=== PATIENT | female | born 1955 | race Caucasian/White ===

== ENCOUNTER 2020-05-21 14:36 | Inpatient (IN) | payer MEDICARE, SELFPAY ==
[2020-05-21] VITALS (7 sets, daily range): BP systolic 83–154; BP diastolic 51–74; PULSE 108–123; RESP 14–22; TEMP 37.1–37.3; O2SAT 96–98; BMI 25.8
--- NOTE | 2020-05-21 14:41 | XRR_ITS ---
PROCEDURE INFORMATION: Exam: XR Chest, 1 View Exam date and time: 05/21/2020 3:00 PM Age: 65 years old Clinical indication: Cough TECHNIQUE: Imaging protocol: XR of the chest Views: 1 view. COMPARISON: No relevant prior studies available. FINDINGS: Lungs: Unremarkable. No consolidation. Pleural space: Unremarkable. No pleural effusion. No pneumothorax. Heart/Mediastinum: Unremarkable. No cardiomegaly. Bones/joints: Unremarkable. XR/XR chest 1V portable [id number] IMPRESSION: No acute findings.
--- NOTE | 2020-05-21 14:48 | ECG_ITS ---
[facility] Test Date: 2020-05-21 Pat Name: Ambika Nichols Department: Room: Gender: Female [employer] Agent: : [id number] Requested By: Victorina Jones Order Number: [id number] Dale MD: Brigida Carvajal M.D. Measurements Intervals [place] Rate: 108 P: -1 FL: 161 QRS: 5 QRSD: 81 T: 18 QT: 315 QTc: 423 Interpretive Statements SINUS TACHYCARDIA ABNORMAL RHYTHM ECG No previous ECG available for comparison Electronically Signed On 05-23-2020 8:02:33 CDT by Brigida Carvajal M.D. [email or web address]
--- NOTE | 2020-05-21 15:13 | ED_ITS ---
Documented by User: Victorina Herman 05/21/20 18:12 HPI - General Adult General: Chief complaint: General Medical Stated complaint: lethargic, nausea, vomiting, head congestion Time Seen by Provider: 05/21/20 14:37 Source: patient Mode of arrival: ambulatory Limitations: no limitations History of Present Illness: HPI narrative: Ambika is a nice 65-year-old female who comes in complaining of upper respiratory symptoms along with nausea and vomiting. Patient states 2 days ago she started with head congestion and sinus drainage. She had a low-grade fever at home but never did take her temperature. This was a subjective fever. Denies any abdominal pain or diarrhea. Denies any urinary symptoms. She denies any neck pain or stiffness. She does have a sore throat and a dry cough. She is unaware of anything that makes her symptoms better or worse. Her greatest symptom today is that of just profound fatigue and weakness. She believes she is dehydrated because she is not keeping anything down. Associated symptoms: Reports malaise, nausea and vomiting; Deny chest pain, confusion, diaphoresis, headache(s), rash, palpitations or syncope Review of Systems Const: Reports: fever(s), chills, body aches, change in appetite, fatigue and malaise; Denies: diaphoresis Eyes: Denies: change in vision, blurry vision, photophobia, eye discomfort, eye discharge or eye redness ENMT: Denies: throat pain, odynophagia, hoarseness, swelling of lips/tongue, ear or mastoid pain, ear discharge, change in hearing or nasal discharge Card: Denies: chest pain, palpitations, irregular heart rhythm, edema, lightheadedness, syncope, pre-syncope, dyspnea on exertion or orthopnea Resp: Denies: productive cough, wheezing, hemoptysis or chest congestion GI: Reports: abdominal pain, nausea and vomiting; Denies: hematemesis, coffee ground emesis, heartburn, diarrhea, constipation, GI cramping, hematochezia or melena : Denies: flank pain, dysuria, urinary frequency, urinary urgency or hematuria Musc: Denies: neck pain, back pain, extremity pain, extremity swelling, joint pain, joint swelling, joint redness, joint warmth or joint stiffness Skin/Breast: Denies: rash, pruritus, erythema or skin tenderness Neuro: Denies: headache(s), numbness in extremities, weakness in extremities, sensory changes, lack of coordination, difficulty walking, dizziness, vertigo, confusion, Slurred speech present or seizure-like activity Jayjay/Lymph: Denies: easy bruising, easy bleeding, petechiae, purpura or enlarged lymph nodes All/Imm: Denies: urticaria, throat swelling, tongue swelling, facial swelling or acute wheezing PFSH ED PFSH: Medical History (Updated 05/21/20 @ 20:36 by Luis Thayer MD) DJD (degenerative joint disease) DM type 2 (diabetes mellitus, type 2) Hyperlipidemia Hypertension Hypothyroidism Menopausal symptoms Relates she takes antidepressant for this Pituitary tumor Surgical History (Updated 05/21/20 @ 20:26 by Luis Thayer MD) H/O pituitary neoplasm Status post resection History of History of hysterectomy Family History (Updated 05/21/20 @ 20:26 by Luis Thayer MD) Other CAD (coronary artery disease) Social History (Updated 05/21/20 @ 20:26 by Luis Thayer MD) Smoking and tobacco status: never smoked Alcohol intake: never Substance/Drug Use: never Physical Exam Const: COMMON NORMALS: no acute distress, patient oriented x3, no limitations, healthy appearing and well nourished GENERAL APPEARANCE: cooperative, well kempt and well developed HENMT: COMMON NORMALS: normocephalic, atraumatic, external ears normal, EAC's normal and Normal external nose present HEAD & SCALP: normal to inspection, normocephalic and atraumatic FACE & SINUS: normal facial exam and face symmetric NOSE: Normal external nose present and Normal nares present EXTERNAL EAR: Yes external ears normal EXTERNAL AUDITORY CANAL: EAC's normal MOUTH: Normal oral and palatal mucosa present, lip normal and tongue normal Eye: COMMON NORMALS: Equal, round and reactive pupils present and conjunctivae normal GENERAL EYE: appearance normal, both eyes and all related structures ALIGNMENT: Yes alignment normal PERIORBITAL: periorbital findings normal EYELID: eyelids normal CONJUNCTIVA: Yes conjunctivae normal SCLERA: sclerae normal PUPIL: Yes Equal, round and reactive pupils present Neck/C-Spine: COMMON NORMALS: full ROM, no lymphadenopathy, supple, no meningeal signs and no JVD GENERAL: Yes normal visual inspection and Yes trachea midline Chest: COMMONS NORMALS: normal inspection of the chest and normal palpation of entire chest wall Resp: COMMON NORMALS: normal respiratory effort, No retractions, No use of accessory muscles and clear to auscultation bilaterally EFFORT & INSPECTION: Yes able to speak in complete sentences and Yes symmetric chest movement AUSCULTATION: clear to auscultation bilaterally, no crackles, no rales, no rhonchi and no wheezes Cardio: COMMON NORMALS: no JVD, regular rate, regular rhythm, S1 normal heart sound present and S2 normal heart sound present RATE: regular rate RHYTHM: regular rhythm HEART SOUNDS: S1 normal heart sound present, S2 normal heart sound present, no click, no gallops, no murmurs, no rubs and abnormal split S2 GI: COMMON NORMALS: Soft to palpation and No hepatosplenomegaly present PALPATION: Yes Soft to palpation, No Tenderness to palpation present (GI), No Guarding due to palpation present (GI), No Rigid due to palpation, Yes No hepatosplenomegaly present, No Hernia present, No Palpable mass present and No Pulsatile mass present : COMMON NORMALS: Yes no CVA tenderness BLADDER/KIDNEY EXAM: Yes no CVA tenderness EXTERNAL FEMALE EXAM: No Hernia present Back/Pelvis: COMMON NORMALS: no CVA tenderness, thoracic and lumbar spine normal to inspection, no thoracic nor lumbar tenderness and thoraco-lumbar ROM normal Extremity: COMMON NORMALS: normal to inspection, full ROM, capillary refill normal, no joint enlargement, no clubbing, cyanosis or edema and no calf tenderness Neuro: COMMON NORMALS: patient oriented x3, CN's II-XII intact bilaterally, moves all extremities, no focal motor deficits and no sensory deficits noted MENINGEAL SIGNS: Yes no meningeal signs SPEECH: speech normal Psych: COMMON NORMALS: mental status grossly normal, Normal thought process present, cooperative, normal affect, speech normal and activity/motor behavior normal APPEARANCE: Yes well kempt SPEECH: Yes normal speech THOUGHT PROCESS: Normal thought process present Skin: COMMON NORMALS: no rashes or lesions noted, turgor normal, no jaundice, no petechiae and no mottling GENERAL SKIN EXAM: no rashes or lesions noted and turgor normal Course ED course: 1703 -patient profoundly orthostatic with a blood pressure going from 140 systolic to 83 systolic from laying down to a seated position. Vital Signs: Vital signs: Vital Signs Temperature 98.8 F 09/05/20 23:21 Pulse Rate 109 H 05/21/20 23:21 Respiratory Rate 14 05/21/20 23:21 Blood Pressure 154/73 05/21/20 23:21 Pulse Oximetry 96 05/21/20 23:21 [facility] - General Adult Lab Data: Labs: Lab Results 05/21/20 05/21/20 05/21/20 Range/Units 15:45 15:45 15:45 WBC 15.0 H (4.0-10.0) 10^3/ uL RBC 4.12 (4.1-5.3) 10^6/u L Hgb 11.0 L (11.5-15.3) g/dL Hct 35.1 L (37.0-47.0) % MCV 85.2 (81-99) fL MCH 26.7 L (28.0-34.0) pg MCHC 31.3 (30.0-36.0) g/dL RDW 13.7 (12.1-15.1) % Plt Count 162 (130-400) 10^3/c mm MPV 9.7 (7.4-10.4) fL Neut % (Auto) 87.3 % Lymph % (Auto) 4.3 % [place] % (Auto) 7.0 % Eos % (Auto) 0.2 % Baso % (Auto) 0.3 % Neut # (Auto) 13.06 H (1.8-7.7) 10^3/u L Lymph # (Auto) 0.7 L (0.8-4.8) 10^3/u L [place] # (Auto) 1.1 H (0.2-0.9) 10^3/u L Eos # (Auto) 0.0 (0.0-0.8) 10^3/u L Baso # (Auto) 0.1 (0.0-0.1) 10^3/u L Nucleated RBC % (a uto) 0 % Nucleated RBCs # 0.0 /100WBC PT 14.70 (12.1-14.9) SECO NDS INR 1.12 (0.8-1.2) Sodium 133 L (136-145) mmol/L Potassium 4.5 (3.5-5.1) mmol/L Chloride 96 L (98-107) mmol/L Carbon Dioxide 20 L (22-29) mmol/L Anion Gap 21.5 H (5-19) BUN 35 H (8-23) mg/dL Creatinine 1.4 H (0.5-0.9) mg/dL GFR Calculation 37.5 L (90-130) mL/min Glucose 374 H (65-115) mg/dL Calculated Osmolal ity 289 (285-295) mOsm/k g Lactic Acid (0.5-2.2) mmol/L Calcium 9.1 (8.5-10.5) mg/dL Magnesium 1.9 (1.7-2.3) mg/dL Total Bilirubin 0.5 (0.15-1.2) mg/dL AST 16 (0-32) U/L ALT 23 (0-33) U/L Alkaline Phosphata se 84 (35-105) IU/L Creatine Kinase 21 L (26-192) U/L Troponin T Baselin e (0-10) ng/L Troponin T 120 [place] (0-10) ng/L Delta Troponin T (0-10) ABS# Total Protein 7.3 (6.6-8.7) g/dL Albumin 3.8 (3.5-5.2) g/dL Globulin 3.5 (1.3-4.6) g/dL Lipase 8 L (13-60) U/L TSH 0.55 (0.27-4.20) uIU/ mL Urine Color (Yellow) Urine Appearance (CLEAR) Urine pH (5-7) Ur Specific Gravit y (1.005-1.030) Urine Protein (Negative) Urine Glucose (UA) (Normal) Urine Ketones (Negative) Urine Blood (Negative) Urine Nitrate (Negative) Urine Bilirubin (NEGATIVE) Urine Urobilinogen (Negative) mg/dL Ur Leukocyte [place] ase (Negative) Urine RBC (0-2) /hpf Urine WBC (0-5) /hpf Ur Squamous Epith Cells (0-5) Amorphous Sediment Urine Bacteria (NONE) Serum Ketones Negative (Negative) Influenza Type A A g (Negative) Influenza Type B A g (Negative) SARS-CoV-2 Ag (Rap id) (Negative) 05/21/20 05/21/20 05/21/20 Range/Units 15:45 15:45 15:45 WBC (4.0-10.0) 10^3/ uL RBC (4.1-5.3) 10^6/u L Hgb (11.5-15.3) g/dL Hct (37.0-47.0) % MCV (81-99) fL MCH (28.0-34.0) pg MCHC (30.0-36.0) g/dL RDW (12.1-15.1) % Plt Count (130-400) 10^3/c mm MPV (7.4-10.4) fL Neut % (Auto) % Lymph % (Auto) % [place] % (Auto) % Eos % (Auto) % Baso % (Auto) % Neut # (Auto) (1.8-7.7) 10^3/u L Lymph # (Auto) (0.8-4.8) 10^3/u L [place] # (Auto) (0.2-0.9) 10^3/u L Eos # (Auto) (0.0-0.8) 10^3/u L Baso # (Auto) (0.0-0.1) 10^3/u L Nucleated RBC % (a uto) % Nucleated RBCs # /100WBC PT (12.1-14.9) SECO NDS INR (0.8-1.2) Sodium (136-145) mmol/L Potassium (3.5-5.1) mmol/L Chloride (98-107) mmol/L Carbon Dioxide (22-29) mmol/L Anion Gap (5-19) BUN (8-23) mg/dL Creatinine (0.5-0.9) mg/dL GFR Calculation (90-130) mL/min Glucose (65-115) mg/dL Calculated Osmolal ity (285-295) mOsm/k g Lactic Acid 1.8 (0.5-2.2) mmol/L Calcium (8.5-10.5) mg/dL Magnesium (1.7-2.3) mg/dL Total Bilirubin (0.15-1.2) mg/dL AST (0-32) U/L ALT (0-33) U/L Alkaline Phosphata se (35-105) IU/L Creatine Kinase (26-192) U/L Troponin T Baselin e 27 H (0-10) ng/L Troponin T 120 [place] (0-10) ng/L Delta Troponin T (0-10) ABS# Total Protein (6.6-8.7) g/dL Albumin (3.5-5.2) g/dL Globulin (1.3-4.6) g/dL Lipase (13-60) U/L TSH (0.27-4.20) uIU/ mL Urine Color (Yellow) Urine Appearance (CLEAR) Urine pH (5-7) Ur Specific Gravit y (1.005-1.030) Urine Protein (Negative) Urine Glucose (UA) (Normal) Urine Ketones (Negative) Urine Blood (Negative) Urine Nitrate (Negative) Urine Bilirubin (NEGATIVE) Urine Urobilinogen (Negative) mg/dL Ur Leukocyte [place] ase (Negative) Urine RBC (0-2) /hpf Urine WBC (0-5) /hpf Ur Squamous Epith Cells (0-5) Amorphous Sediment Urine Bacteria (NONE) Serum Ketones (Negative) Influenza Type A A g (Negative) Influenza Type B A g (Negative) SARS-CoV-2 Ag (Rap id) Negative (Negative) 05/21/20 05/21/20 05/21/20 Range/Units 15:45 17:54 18:08 WBC (4.0-10.0) 10^3/ uL RBC (4.1-5.3) 10^6/u L Hgb (11.5-15.3) g/dL Hct (37.0-47.0) % MCV (81-99) fL MCH (28.0-34.0) pg MCHC (30.0-36.0) g/dL RDW (12.1-15.1) % Plt Count (130-400) 10^3/c mm MPV (7.4-10.4) fL Neut % (Auto) % Lymph % (Auto) % [place] % (Auto) % Eos % (Auto) % Baso % (Auto) % Neut # (Auto) (1.8-7.7) 10^3/u L Lymph # (Auto) (0.8-4.8) 10^3/u L [place] # (Auto) (0.2-0.9) 10^3/u L Eos # (Auto) (0.0-0.8) 10^3/u L Baso # (Auto) (0.0-0.1) 10^3/u L Nucleated RBC % (a uto) % Nucleated RBCs # /100WBC PT (12.1-14.9) SECO NDS INR (0.8-1.2) Sodium (136-145) mmol/L Potassium (3.5-5.1) mmol/L Chloride (98-107) mmol/L Carbon Dioxide (22-29) mmol/L Anion Gap (5-19) BUN (8-23) mg/dL Creatinine (0.5-0.9) mg/dL GFR Calculation (90-130) mL/min Glucose (65-115) mg/dL Calculated Osmolal ity (285-295) mOsm/k g Lactic Acid (0.5-2.2) mmol/L Calcium (8.5-10.5) mg/dL Magnesium (1.7-2.3) mg/dL Total Bilirubin (0.15-1.2) mg/dL AST (0-32) U/L ALT (0-33) U/L Alkaline Phosphata se (35-105) IU/L Creatine Kinase (26-192) U/L Troponin T Baselin e (0-10) ng/L Troponin T 120 [place] 23.61 H (0-10) ng/L Delta Troponin T -3.39 L (0-10) ABS# Total Protein (6.6-8.7) g/dL Albumin (3.5-5.2) g/dL Globulin (1.3-4.6) g/dL Lipase (13-60) U/L TSH (0.27-4.20) uIU/ mL Urine Color Yellow (Yellow) Urine Appearance Sl hazy (CLEAR) Urine pH 5 (5-7) Ur Specific Gravit y 1.015 (1.005-1.030) Urine Protein Trace (Negative) Urine Glucose (UA) 4+ H (Normal) Urine Ketones 1+ H (Negative) Urine Blood Neg (Negative) Urine Nitrate Negative (Negative) Urine Bilirubin Neg (NEGATIVE) Urine Urobilinogen Norm (Negative) mg/dL Ur Leukocyte [place] ase Negative (Negative) Urine RBC None (0-2) /hpf Urine WBC 15-25 H (0-5) /hpf Ur Squamous Epith Cells 5-10 H (0-5) Amorphous Sediment Not Reportable Urine Bacteria 1+ H (NONE) Serum Ketones (Negative) Influenza Type A A g Negative (Negative) Influenza Type B A g Negative (Negative) SARS-CoV-2 Ag (Rap id) (Negative) Imaging Data^: CXR: Attestation: I personally reviewed and interpreted this imaging study as follows: My impression: No acute cardiopulmonary findings. EKG Data^: EKG 1: Attestation: I personally reviewed and interpreted this EKG as follows: EKG interpretation date: 05/21/20 EKG interpretation time: 15:32 Interpretation: Normal sinus rhythm 108 beats a minute, normal axis, no blocks, normal intervals, no acute ST or T wave changes. Computer generated interpretation: Chest X-Ray 05/21/20 14:41 IMPRESSION: No acute findings. Abdomen/Pelvis CT 05/21/20 17:09 IMPRESSION: 1. There is a cystic lesion with some internal complexity and peripheral calcifications in the pancreatic body. Differential includes pancreatic pseudocyst, serous cystadenoma, mucinous cystic neoplasm, and intraductal papillary mucinous neoplasm. 2. There is mucosal thickening of the esophagus and gastroesophageal junction. Differential includes esophagitis/gastritis and neoplasm. 3. Colonic constipation is present. COMMENTS: Consistent with the [employer]'s Incidental Findings Committee white paper (J Am Sadie Radiol 2018): Any incidental renal lesion less than 1.0 cm or classified as too small to characterize, or any incidental cystic renal lesion characterized as simple-appearing, is likely benign. No follow-up imaging is recommended for these lesions per consensus recommendations based on imaging criteria. Radiation Dose CTDIVOL = (mGy): DLP = 975.46 (mGy-cm) Head CT 05/21/20 20:21 IMPRESSION: 1. There is heterogeneous density in the expected location of the pituitary gland extending to the suprasellar region measuring 14 mm x 12 mm. This may represent postoperative change and/or residual/ recurrent tumor. 2. There are senescent changes of the brain as described above. No evidence for large acute ischemic infarction or acute intracranial injury. 3. Acute paranasal sinusitis. Radiation Dose CTDIVOL = (mGy): DLP = 781.42 (mGy-cm) EKG 2: Attestation: I personally reviewed and interpreted this EKG as follows: EKG interpretation date: 05/21/20 EKG interpretation time: 17:06 Interpretation: Normal sinus rhythm 105 beats minute, normal axis, no blocks, normal intervals. No acute ST-T wave changes. Computer generated interpretation: Chest X-Ray 05/21/20 14:41 IMPRESSION: No acute findings. Abdomen/Pelvis CT 05/21/20 17:09 IMPRESSION: 1. There is a cystic lesion with some internal complexity and peripheral calcifications in the pancreatic body. Differential includes pancreatic pseudocyst, serous cystadenoma, mucinous cystic neoplasm, and intraductal papillary mucinous neoplasm. 2. There is mucosal thickening of the esophagus and gastroesophageal junction. Differential includes esophagitis/gastritis and neoplasm. 3. Colonic constipation is present. COMMENTS: Consistent with the [employer]'s Incidental Findings Committee white paper (J Am Sadie Radiol 2018): Any incidental renal lesion less than 1.0 cm or classified as too small to characterize, or any incidental cystic renal lesion characterized as simple-appearing, is likely benign. No follow-up imaging is recommended for these lesions per consensus recommendations based on imaging criteria. Radiation Dose CTDIVOL = (mGy): DLP = 975.46 (mGy-cm) Head CT 05/21/20 20:21 IMPRESSION: 1. There is heterogeneous density in the expected location of the pituitary gland extending to the suprasellar region measuring 14 mm x 12 mm. This may represent postoperative change and/or residual/ recurrent tumor. 2. There are senescent changes of the brain as described above. No evidence for large acute ischemic infarction or acute intracranial injury. 3. Acute paranasal sinusitis. Radiation Dose CTDIVOL = (mGy): DLP = 781.42 (mGy-cm) Discharge Plan Discharge Patient Disposition: Placed in Observation Admit Provider: Luis Thayer Clinical Impression: Vomiting, Orthostatic hypotension, Esophagitis Condition: Stable Discharge Date/Time: 05/21/20 22:13 Coding Level of Care Code ED Lead Technical Writer for Chg Fwd Exam Comprehensive Documented by User: Chang Oneill, 05/22/20 04:08 HPI - General Adult General: Chief complaint: General Medical Stated complaint: lethargic, nausea, vomiting, head congestion Time Seen by Provider: 05/21/20 14:37 PFSH ED PFSH: Medical History (Updated 05/21/20 @ 20:36 by Luis Thayer MD) DJD (degenerative joint disease) DM type 2 (diabetes mellitus, type 2) Hyperlipidemia Hypertension Hypothyroidism Menopausal symptoms Relates she takes antidepressant for this Pituitary tumor Surgical History (Updated 05/21/20 @ 20:26 by Luis Thayer MD) H/O pituitary neoplasm Status post resection History of History of hysterectomy Family History (Updated 05/21/20 @ 20:26 by Luis Thayer MD) Other CAD (coronary artery disease) Social History (Updated 05/21/20 @ 20:26 by Luis Thayer MD) Smoking and tobacco status: never smoked Alcohol intake: never Substance/Drug Use: never Course Consultations: Consultation #1: [place] Vital Signs: Vital signs: Vital Signs Temperature 98.8 F 05/21/20 23:21 Pulse Rate 109 H 05/21/20 23:21 Respiratory Rate 14 05/21/20 23:21 Blood Pressure 154/73 05/21/20 23:21 Pulse Oximetry 96 05/21/20 23:21 MDM - General Adult MDM Narrative: Medical decision making narrative: 65-year-old lady with a history of vomiting at home. She is not been able to hold down liquid, she has been complaining of heartburn . She was checked out to me by Dr. Mantilla at shift change. That was pending a CT result, which shows mucosal thickening of her distal esophagus, along with an abnormality in her pancreas that could be inflammatory versus malignancy. Her white blood cell count is 15, hemoglobin 11, bicarbonate level was 20. She has had 2 L of fluid, and is still orthostatic with lying to sitting, although she is less symptomatic. Her heart rate remains above 100, in the 110s. Her blood pressure is mildly improved should be observed for continued fluid support, repeat laboratory, etc. Hospitalist agrees. Lab Data: Labs: Lab Results 05/21/20 05/21/20 05/21/20 Range/Units 15:45 15:45 15:45 WBC 15.0 H (4.0-10.0) 10^3/ uL RBC 4.12 (4.1-5.3) 10^6/u L Hgb 11.0 L (11.5-15.3) g/dL Hct 35.1 L (37.0-47.0) % MCV 85.2 (81-99) fL MCH 26.7 L (28.0-34.0) pg MCHC 31.3 (30.0-36.0) g/dL RDW 13.7 (12.1-15.1) % Plt Count 162 (130-400) 10^3/c mm MPV 9.7 (7.4-10.4) fL Neut % (Auto) 87.3 % Lymph % (Auto) 4.3 % [place] % (Auto) 7.0 % Eos % (Auto) 0.2 % Baso % (Auto) 0.3 % Neut # (Auto) 13.06 H (1.8-7.7) 10^3/u L Lymph # (Auto) 0.7 L (0.8-4.8) 10^3/u L [place] # (Auto) 1.1 H (0.2-0.9) 10^3/u L Eos # (Auto) 0.0 (0.0-0.8) 10^3/u L Baso # (Auto) 0.1 (0.0-0.1) 10^3/u L Nucleated RBC % (a uto) 0 % Nucleated RBCs # 0.0 /100WBC PT 14.70 (12.1-14.9) SECO NDS INR 1.12 (0.8-1.2) Sodium 133 L (136-145) mmol/L Potassium 4.5 (3.5-5.1) mmol/L Chloride 96 L (98-107) mmol/L Carbon Dioxide 20 L (22-29) mmol/L Anion Gap 21.5 H (5-19) BUN 35 H (8-23) mg/dL Creatinine 1.4 H (0.5-0.9) mg/dL GFR Calculation 37.5 L (90-130) mL/min Glucose 374 H (65-115) mg/dL Calculated Osmolal ity 289 (285-295) mOsm/k g Lactic Acid (0.5-2.2) mmol/L Calcium 9.1 (8.5-10.5) mg/dL Magnesium 1.9 (1.7-2.3) mg/dL Total Bilirubin 0.5 (0.15-1.2) mg/dL AST 16 (0-32) U/L ALT 23 (0-33) U/L Alkaline Phosphata se 84 (35-105) IU/L Creatine Kinase 21 L (26-192) U/L Troponin T Baselin e (0-10) ng/L Troponin T 120 [place] (0-10) ng/L Delta Troponin T (0-10) ABS# Total Protein 7.3 (6.6-8.7) g/dL Albumin 3.8 (3.5-5.2) g/dL Globulin 3.5 (1.3-4.6) g/dL Lipase 8 L (13-60) U/L TSH 0.55 (0.27-4.20) uIU/ mL Urine Color (Yellow) Urine Appearance (CLEAR) Urine pH (5-7) Ur Specific Gravit y (1.005-1.030) Urine Protein (Negative) Urine Glucose (UA) (Normal) Urine Ketones (Negative) Urine Blood (Negative) Urine Nitrate (Negative) Urine Bilirubin (NEGATIVE) Urine Urobilinogen (Negative) mg/dL Ur Leukocyte [place] ase (Negative) Urine RBC (0-2) /hpf Urine WBC (0-5) /hpf Ur Squamous Epith Cells (0-5) Amorphous Sediment Urine Bacteria (NONE) Serum Ketones Negative (Negative) Influenza Type A A g (Negative) Influenza Type B A g (Negative) SARS-CoV-2 Ag (Rap id) (Negative) 05/21/20 05/21/20 05/21/20 Range/Units 15:45 15:45 15:45 WBC (4.0-10.0) 10^3/ uL RBC (4.1-5.3) 10^6/u L Hgb (11.5-15.3) g/dL Hct (37.0-47.0) % MCV (81-99) fL MCH (28.0-34.0) pg MCHC (30.0-36.0) g/dL RDW (12.1-15.1) % Plt Count (130-400) 10^3/c mm MPV (7.4-10.4) fL Neut % (Auto) % Lymph % (Auto) % [place] % (Auto) % Eos % (Auto) % Baso % (Auto) % Neut # (Auto) (1.8-7.7) 10^3/u L Lymph # (Auto) (0.8-4.8) 10^3/u L [place] # (Auto) (0.2-0.9) 10^3/u L Eos # (Auto) (0.0-0.8) 10^3/u L Baso # (Auto) (0.0-0.1) 10^3/u L Nucleated RBC % (a uto) % Nucleated RBCs # /100WBC PT (12.1-14.9) SECO NDS INR (0.8-1.2) Sodium (136-145) mmol/L Potassium (3.5-5.1) mmol/L Chloride (98-107) mmol/L Carbon Dioxide (22-29) mmol/L Anion Gap (5-19) BUN (8-23) mg/dL Creatinine (0.5-0.9) mg/dL GFR Calculation (90-130) mL/min Glucose (65-115) mg/dL Calculated Osmolal ity (285-295) mOsm/k g Lactic Acid 1.8 (0.5-2.2) mmol/L Calcium (8.5-10.5) mg/dL Magnesium (1.7-2.3) mg/dL Total Bilirubin (0.15-1.2) mg/dL AST (0-32) U/L ALT (0-33) U/L Alkaline Phosphata se (35-105) IU/L Creatine Kinase (26-192) U/L Troponin T Baselin e 27 H (0-10) ng/L Troponin T 120 [place] (0-10) ng/L Delta Troponin T (0-10) ABS# Total Protein (6.6-8.7) g/dL Albumin (3.5-5.2) g/dL Globulin (1.3-4.6) g/dL Lipase (13-60) U/L TSH (0.27-4.20) uIU/ mL Urine Color (Yellow) Urine Appearance (CLEAR) Urine pH (5-7) Ur Specific Gravit y (1.005-1.030) Urine Protein (Negative) Urine Glucose (UA) (Normal) Urine Ketones (Negative) Urine Blood (Negative) Urine Nitrate (Negative) Urine Bilirubin (NEGATIVE) Urine Urobilinogen (Negative) mg/dL Ur Leukocyte [place] ase (Negative) Urine RBC (0-2) /hpf Urine WBC (0-5) /hpf Ur Squamous Epith Cells (0-5) Amorphous Sediment Urine Bacteria (NONE) Serum Ketones (Negative) Influenza Type A A g (Negative) Influenza Type B A g (Negative) SARS-CoV-2 Ag (Rap id) Negative (Negative) 05/21/20 05/21/20 05/21/20 Range/Units 15:45 17:54 18:08 WBC (4.0-10.0) 10^3/ uL RBC (4.1-5.3) 10^6/u L Hgb (11.5-15.3) g/dL Hct (37.0-47.0) % MCV (81-99) fL MCH (28.0-34.0) pg MCHC (30.0-36.0) g/dL RDW (12.1-15.1) % Plt Count (130-400) 10^3/c mm MPV (7.4-10.4) fL Neut % (Auto) % Lymph % (Auto) % [place] % (Auto) % Eos % (Auto) % Baso % (Auto) % Neut # (Auto) (1.8-7.7) 10^3/u L Lymph # (Auto) (0.8-4.8) 10^3/u L [place] # (Auto) (0.2-0.9) 10^3/u L Eos # (Auto) (0.0-0.8) 10^3/u L Baso # (Auto) (0.0-0.1) 10^3/u L Nucleated RBC % (a uto) % Nucleated RBCs # /100WBC PT (12.1-14.9) SECO NDS INR (0.8-1.2) Sodium (136-145) mmol/L Potassium (3.5-5.1) mmol/L Chloride (98-107) mmol/L Carbon Dioxide (22-29) mmol/L Anion Gap (5-19) BUN (8-23) mg/dL Creatinine (0.5-0.9) mg/dL GFR Calculation (90-130) mL/min Glucose (65-115) mg/dL Calculated Osmolal ity (285-295) mOsm/k g Lactic Acid (0.5-2.2) mmol/L Calcium (8.5-10.5) mg/dL Magnesium (1.7-2.3) mg/dL Total Bilirubin (0.15-1.2) mg/dL AST (0-32) U/L ALT (0-33) U/L Alkaline Phosphata se (35-105) IU/L Creatine Kinase (26-192) U/L Troponin T Baselin e (0-10) ng/L Troponin T 120 [place] 23.61 H (0-10) ng/L Delta Troponin T -3.39 L (0-10) ABS# Total Protein (6.6-8.7) g/dL Albumin (3.5-5.2) g/dL Globulin (1.3-4.6) g/dL Lipase (13-60) U/L TSH (0.27-4.20) uIU/ mL Urine Color Yellow (Yellow) Urine Appearance Sl hazy (CLEAR) Urine pH 5 (5-7) Ur Specific Gravit y 1.015 (1.005-1.030) Urine Protein Trace (Negative) Urine Glucose (UA) 4+ H (Normal) Urine Ketones 1+ H (Negative) Urine Blood Neg (Negative) Urine Nitrate Negative (Negative) Urine Bilirubin Neg (NEGATIVE) Urine Urobilinogen Norm (Negative) mg/dL Ur Leukocyte Arleth ase Negative (Negative) Urine RBC None (0-2) /hpf Urine WBC 15-25 H (0-5) /hpf Ur Squamous Epith Cells 5-10 H (0-5) Amorphous Sediment Not Reportable Urine Bacteria 1+ H (NONE) Serum Ketones (Negative) Influenza Type A A g Negative (Negative) Influenza Type B A g Negative (Negative) SARS-CoV-2 Ag (Rap id) (Negative) EKG Data^: EKG 1: Computer generated interpretation: Chest X-Ray 05/21/20 14:41 IMPRESSION: No acute findings. Abdomen/Pelvis CT 05/21/20 17:09 IMPRESSION: 1. There is a cystic lesion with some internal complexity and peripheral calcifications in the pancreatic body. Differential includes pancreatic pseudocyst, serous cystadenoma, mucinous cystic neoplasm, and intraductal papillary mucinous neoplasm. 2. There is mucosal thickening of the esophagus and gastroesophageal junction. Differential includes esophagitis/gastritis and neoplasm. 3. Colonic constipation is present. COMMENTS: Consistent with the [employer]'s Incidental Findings Committee white paper (J Am Sadie Radiol 2018): Any incidental renal lesion less than 1.0 cm or classified as too small to characterize, or any incidental cystic renal lesion characterized as simple-appearing, is likely benign. No follow-up imaging is recommended for these lesions per consensus recommendations based on imaging criteria. Radiation Dose CTDIVOL = (mGy): DLP = 975.46 (mGy-cm) Head CT 05/21/20 20:21 IMPRESSION: 1. There is heterogeneous density in the expected location of the pituitary gland extending to the suprasellar region measuring 14 mm x 12 mm. This may represent postoperative change and/or residual/ recurrent tumor. 2. There are senescent changes of the brain as described above. No evidence for large acute ischemic infarction or acute intracranial injury. 3. Acute paranasal sinusitis. Radiation Dose CTDIVOL = (mGy): DLP = 781.42 (mGy-cm) EKG 2: Computer generated interpretation: Chest X-Ray 05/21/20 14:41 IMPRESSION: No acute findings. Abdomen/Pelvis CT 05/21/20 17:09 IMPRESSION: 1. There is a cystic lesion with some internal complexity and peripheral calcifications in the pancreatic body. Differential includes pancreatic pseudocyst, serous cystadenoma, mucinous cystic neoplasm, and intraductal papillary mucinous neoplasm. 2. There is mucosal thickening of the esophagus and gastroesophageal junction. Differential includes esophagitis/gastritis and neoplasm. 3. Colonic constipation is present. COMMENTS: Consistent with the [employer]'s Incidental Findings Committee white paper (J Am Sadie Radiol 2018): Any incidental renal lesion less than 1.0 cm or classified as too small to characterize, or any incidental cystic renal lesion characterized as simple-appearing, is likely benign. No follow-up imaging is recommended for these lesions per consensus recommendations based on imaging criteria. Radiation Dose CTDIVOL = (mGy): DLP = 975.46 (mGy-cm) Head CT 05/21/20 20:21
[2020-05-21] MEDS: ondansetron 2 mg/ML SDV 2 mL 4 MG IVP (15:25)
[2020-05-21] MEDS: sodium chloride 0.9% 1,000 ML 999 ML IV (15:25)
[2020-05-21 15:54] LABS: Basophils # 0.1 10^3/uL (0.0-0.1); Basophils % 0.3 %; Eosinophils % 0.2 %; Hematocrit 35.1 % (37.0-47.0); Lymphocytes # 0.7 10^3/uL (0.8-4.8); Lymphocytes % 4.3 %; Mean Corpuscular HGB Conc 31.3 g/dL (30.0-36.0); Mean Corpuscular Hemoglobin 26.7 pg (28.0-34.0); Mean Corpuscular Volume 85.2 fL (81-99); Mean Platelet Volume 9.7 fL (7.4-10.4); Monocytes # 1.1 10^3/uL (0.2-0.9); Neutrophils # 13.06 10^3/uL (1.8-7.7); Neutrophils % 87.3 %; Nucleated Red Blood Cells % 0 %; Platelet Count 162 10^3/cmm (130-400); Red Blood Count 4.12 10^6/uL (4.1-5.3); Red Cell Distribution Width 13.7 % (12.1-15.1)
[2020-05-21 16:04] LABS: Ketone (Acetest) Serum Negative (Negative)
[2020-05-21 16:06] LABS: INR 1.12 (0.8-1.2)
[2020-05-21 16:18] LABS: Troponin(5th) Baseline 27 ng/L (0-10)
[2020-05-21 16:19] LABS: Lactic Sepsis W/Reflex 1.8 mmol/L (0.5-2.2)
[2020-05-21 16:21] LABS: Alanine Aminotransferase 23 U/L (0-33); Albumin Level 3.8 g/dL (3.5-5.2); Alkaline Phosphatase 84 IU/L (35-105); Anion Gap 21.5 (5-19); Aspartate Amino Transferase 16 U/L (0-32); Blood Urea Nitrogen 35 mg/dL (8-23); Calcium 9.1 mg/dL (8.5-10.5); Carbon Dioxide 20 mmol/L (22-29); Chloride 96 mmol/L (98-107); Creatine Phosphokinase 21 U/L (26-192); Globulin 3.5 g/dL (1.3-4.6); Glomerular Filtration Rate 37.5 mL/min (90-130); Glucose 374 mg/dL (65-115); Lipase 8 U/L (13-60); Magnesium 1.9 mg/dL (1.7-2.3); Osmolality Calculated 289 mOsm/kg (285-295); Potassium 4.5 mmol/L (3.5-5.1); Sodium 133 mmol/L (136-145); Thyroid Stimulating Hormone 0.55 uIU/mL (0.27-4.20); Total Bilirubin 0.5 mg/dL (0.15-1.2); Total Protein 7.3 g/dL (6.6-8.7)
[2020-05-21 16:26] LABS: SARS Covid-2 Antigen Negative (Negative)
[2020-05-21 16:42] LABS: Influenza A by IFA Negative (Negative); Influenza B by IFA Negative (Negative)
--- NOTE | 2020-05-21 16:48 | ECG_ITS ---
[facility] Test Date: 2020-05-21 Pat Name: Ambika Nichols Department: Room: Gender: Female Er Manager: : 1955 Requested By: Victorina Jones Order Number: [id number] Dale MD: Brigida Carvajal M.D. Measurements Intervals [place] Rate: 105 P: 17 IL: 171 QRS: 4 QRSD: 85 T: 27 QT: 321 QTc: 425 Interpretive Statements SINUS TACHYCARDIA ABNORMAL RHYTHM ECG Compared to ECG 05/21/2020 15:32:32 No significant changes Electronically Signed On 05-23-2020 8:29:52 CDT by Brigida Carvajal M.D. [id number]
--- NOTE | 2020-05-21 17:09 | CTR_ITS ---
PROCEDURE INFORMATION: Exam: CT Abdomen And Pelvis With Contrast Exam date and time: 05/21/2020 5:22 PM Age: 65 years old Clinical indication: Nausea and vomiting; Prior surgery; Surgery date: 6+ months; Surgery type: Hyst; Patient HX: C/O fever n/v and lethargy; Additional info: Abdominal pain TECHNIQUE: Imaging protocol: Computed tomography of the abdomen and pelvis with intravenous contrast. Radiation optimization: All CT scans at this facility use at least one of these dose optimization techniques: automated exposure control; mA and/or kV adjustment per patient size (includes targeted exams where dose is matched to clinical indication); or iterative reconstruction. Contrast material: VISI 320; Contrast volume: 95 ml; Contrast route: INTRAVENOUS (IV); COMPARISON: No relevant prior studies available. RADIATION DOSE METRICS: Total DLP (mGy-cm): 975.46 FINDINGS: Mediastinal space: There is mucosal thickening of the visualized esophagus and gastroesophageal junction. Liver: Normal. No mass. Gallbladder and bile ducts: Normal. No calcified stones. No ductal dilation. Pancreas: There is a cystic lesion with some internal complexity and peripheral calcifications in the pancreatic body measuring 8.2 by 7.6 cm in the transverse/AP dimensions. Spleen: Spleen is measuring 14.2 centimetres. Adrenals: Normal. No mass. Kidneys and ureters: There is a cyst in the left kidney measuring 4.9 cm with benign features. Follow-up is not necessary. Stomach and bowel: Colonic constipation is present. Appendix: No evidence of appendicitis. Intraperitoneal space: Unremarkable. No free air. No significant fluid collection. Vasculature: Unremarkable. No abdominal aortic aneurysm. Lymph nodes: Unremarkable. No enlarged lymph nodes. Bladder: Unremarkable as visualized. Reproductive: The uterus is not visualized, consistent with hysterectomy. Bones/joints: Unremarkable. No acute fracture. Soft tissues: There are foci of edema in the subcutaneous soft tissues of the ventral abdomen. CT/CT abdomen pelvis w con* [id number] IMPRESSION: 1. There is a cystic lesion with some internal complexity and peripheral calcifications in the pancreatic body. Differential includes pancreatic pseudocyst, serous cystadenoma, mucinous cystic neoplasm, and intraductal papillary mucinous neoplasm. 2. There is mucosal thickening of the esophagus and gastroesophageal junction. Differential includes esophagitis/gastritis and neoplasm. 3. Colonic constipation is present. COMMENTS: Consistent with the [employer]'s Incidental Findings Committee white paper (J Am Sadie Radiol 2018): Any incidental renal lesion less than 1.0 cm or classified as too small to characterize, or any incidental cystic renal lesion characterized as simple-appearing, is likely benign. No follow-up imaging is recommended for these lesions per consensus recommendations based on imaging criteria. Radiation Dose CTDIVOL = (mGy): DLP = 975.46 (mGy-cm)
[2020-05-21] MEDS: iodixanol 320 mg/mL 100mL Btl IV (17:34)
[2020-05-21] MEDS: lactated ringers 1,000 ML 999 ML IV ×2 (18:15→19:55)
[2020-05-21 18:22] LABS: Specific Gravity, Urine 1.015 (1.005-1.030); Urine Appearance SL Hazy (CLEAR); Urine Color Yellow (Yellow); pH Urine 5 (5-7)
[2020-05-21 18:23] LABS: Bilirubin Urine Neg (NEGATIVE); Blood Urine Neg (Negative); Glucose Urine UA 4+ (Normal); Ketones Urine 1+ (Negative); Leukocyte Esterase Urine Negative (Negative); Nitrate Urine Negative (Negative); Protein Urine Trace (Negative); Urobilinogen Urine Norm (Negative)
[2020-05-21 18:24] LABS: WBC Urine 15-25 /hpf (0-5)
[2020-05-21 18:25] LABS: Add Urine Culture? Yes; Bacteria Urine 1+
[2020-05-21 18:43] LABS: Troponin 5 2HR 23.61 ng/L (0-10); Troponin 5 2HR Delta -3.39 ABS# (0-10)
[2020-05-21] MEDS: lidocaine 2% viscous 15 ML, aluminum-mag hydrox-simethicon 30 ML, sucralfate oral liq 1 GM PO (19:51)
--- NOTE | 2020-05-21 20:21 | CTR_ITS ---
PROCEDURE INFORMATION: Exam: CT Head Without Contrast Exam date and time: 05/21/2020 8:45 PM Age: 65 years old Clinical indication: Malaise or fatigue; Prior surgery; Surgery date: 6+ months; Patient HX: HX of pituitary neoplasm C/O lethargy w n/v; Additional info: Vomiting, HX of pituitary tumor TECHNIQUE: Imaging protocol: Computed tomography of the head without contrast. Radiation optimization: All CT scans at this facility use at least one of these dose optimization techniques: automated exposure control; mA and/or kV adjustment per patient size (includes targeted exams where dose is matched to clinical indication); or iterative reconstruction. COMPARISON: No relevant prior studies available. RADIATION DOSE METRICS: Total DLP (mGy-cm): 781.42 FINDINGS: Brain: Periventricular and subcortical white matter low densities are present which at this age likely represent microvascular ischemic change. No evidence for large acute ischemic infarction. Please note acute ischemia can be occult by head CT. Ventricles: Normal. No ventriculomegaly. Bones/joints: Unremarkable. No acute fracture. Sinuses: There is mucosal thickening of the paranasal sinuses. A small air-fluid level is present in the left frontal sinus. Mastoid air cells: Visualized mastoid air cells are well aerated. Vasculature: Calcified plaque is present within the carotid siphons. Soft tissues: Unremarkable. Submandibular/Parotid glands: There is a defect in the sella turcica, likely postoperative in nature. Heterogeneous density in the expected location of the pituitary gland extends to the suprasellar region and measures 14 mm x 12 mm in the craniocaudad/transverse dimensions. CT/CT head wo con* [id number] IMPRESSION: 1. There is heterogeneous density in the expected location of the pituitary gland extending to the suprasellar region measuring 14 mm x 12 mm. This may represent postoperative change and/or residual/ recurrent tumor. 2. There are senescent changes of the brain as described above. No evidence for large acute ischemic infarction or acute intracranial injury. 3. Acute paranasal sinusitis. Radiation Dose CTDIVOL = (mGy): DLP = 781.42 (mGy-cm)
--- NOTE | 2020-05-21 20:22 | P.HP_ITS ---
Providers/Chief Complaint Chief Complaint: lethargic, nausea, vomiting, head congestion History of Present Illness Ambika Nichols is a 65 year old female presenting from home with history of 3 days of vomiting. She thinks this initially started with sore throat, and some nasal congestion. She really has not had any vomiting. No diarrhea. She may have had some coffee ground emesis. She denies any blood in her stool or black or tarry stools. She reports she has not really been able to keep down any fluids, and seems to vomit all liquids. Heart rate was significantly elevated when she came in but is improved with 2 L of fluid in the emergency department. She has had subjective fever but has not taken her temperature. She denies any headache, visual field defects. She reports no significant anti-inflammatory use but does take 1 aspirin a day. No shortness of breath, abdominal pain, or urinary symptoms. No ill contacts. No COVID exposure or personal history of COVID. Review of Systems General: Reports: 10 or more systems reviewed and unremarkable except in HPI and below Const: Reports: fever(s) and malaise Eyes: Denies: change in vision ENMT: Denies: throat pain Card: Denies: chest pain Resp: Denies: dyspnea GI: Reports: nausea, vomiting and coffee ground emesis; Denies: abdominal pain : Denies: flank pain Skin/Breast: Denies: rash Neuro: Denies: headache(s) Psych: Denies: anxiety Endo: Denies: polyuria Jayjay/Lymph: Denies: easy bruising All/Imm: Denies: urticaria Medications/Allergies Home Medications Medication Instructions Recorded Confirmed Last Taken Type amlodipine 10 mg PO DAILY 05/21/20 05/21/20 05/19/20 History aspirin 81 mg PO DAILY 05/21/20 05/21/20 05/19/20 History desvenlafaxine succinate 50 mg PO DAILY 05/21/20 05/21/20 05/19/20 History empagliflozin [Jardiance] 25 mg PO DAILY 05/21/20 05/21/20 05/19/20 History insulin detemir U-100 [Levemir 42 unit SUBCUT BID 05/21/20 05/21/20 05/19/20 History FlexTouch U-100 Insuln] levothyroxine 100 mcg PO DAILY 09/02/0205/21/20 05/19/20 History lisinopril 40 mg PO DAILY 05/21/20 05/21/20 05/19/20 History simvastatin 40 mg PO DAILY 05/21/20 05/21/20 05/19/20 History tizanidine 4 mg PO DAILY 05/21/20 05/21/20 05/19/20 History Allergies Allergy/AdvReac Type Severity Reaction Status Date / Time No Known Allergies Allergy Verified 05/21/20 14:38 PFSH Acute PFSH: Medical History (Updated 05/21/20 @ 20:36 by Luis Thayer MD) DJD (degenerative joint disease) DM type 2 (diabetes mellitus, type 2) Hyperlipidemia Hypertension Hypothyroidism Menopausal symptoms Relates she takes antidepressant for this Pituitary tumor Surgical History (Updated 05/21/20 @ 20:26 by Luis Thayer MD) H/O pituitary neoplasm Status post resection History of History of hysterectomy Family History (Updated 05/21/20 @ 20:26 by Luis Thayer MD) Other CAD (coronary artery disease) Social History (Updated 05/21/20 @ 20:26 by Luis Thayer MD) Smoking and tobacco status: never smoked Alcohol intake: never Substance/Drug Use: never Vitals/I&O/Wt Last Vital Signs Temp 99.2 F 05/21/20 14:36 Pulse 113 H 05/21/20 19:59 Resp 20 H 05/21/20 19:59 BP 127/60 05/21/20 19:59 Pulse Ox 96 05/21/20 19:59 05/21/20 05/21/20 05/21/20 06:59 14:59 22:59 Intake Total 1999 Balance 1999 Weight last 48 hrs Weight 77.111 kg Physical Exam Narrative: EXAM NARRATIVE: General exam is a white female, no obvious distress. Slight tachycardia is noted HEENT: Pupils equally round. No obvious visual field defects. Oropharynx clear. Extraocular movements are intact Neck is supple no lymphadenopathy or thyromegaly Cardiovascular tachycardic, regular, no murmur. Lungs clear no wheezing or crackles Abdomen is soft nontender with positive bowel sounds. No obvious organomegaly was deferred Extremities no cyanosis clubbing or edema, cap refill brisk Skin no rash Neuro no focal deficits Data : 05/21/20 15:45 05/21/20 15:45 Other data: TSH normal Magnesium level normal EKG sinus tachycardia, normal axis, no acute changes Chest x-ray no infiltrate CT abdomen pelvis distal mucosal esophageal thickening. Cystic lesion noted in the pancreas. Cannot exclude pseudocyst or mass. This is 8.2 x 7.6 cm in diameter. Some peripheral calcifications are noted as well. LFTs normal Lipase normal Urinalysis 15-25 reds, 5-10 squamous, negative reds COVID rapid negative and influenza negative Serum ketones negative A&P Assessment and plan (1) Intractable vomiting: Hydration Nausea control with Zofran Possibly secondary to gastroenteritis, although UTI is another possibility. Doubt pancreas findings have caused the vomiting as patient has absolutely no abdominal discomfort, no elevation in pancreas enzymes. With history of some coffee-ground emesis could have gastritis. Placed on Protonix 40 mg twice daily With history of pituitary removal 3 [address] need [address] head noncontrast to make sure there is no evidence of mass or intracranial pressure causing intractable vomiting prior to admission. I have discussed this with the ER physician. Status: Acute (2) Dehydration: Supplement improving with fluids. Was significantly tachycardic. Had orthostatic changes on admission. All of this should correct with hydration. Status: Acute (3) Leukocytosis: Secondary to acute illness Status: Acute (4) Acute kidney injury: Hydration Status: Acute (5) Anemia: Follow closely. No evidence for brisk upper GI bleed currently. Status: Acute (6) Elevated troponin: Type II. No significant delta. Status: Acute (7) Pancreatic mass: Will need outpatient follow-up. At this point it is likely an incidental finding but certainly will keep this in mind. Status: Acute (8) Esophageal thickening: Protonix 40 mg twice daily Consider of EGD in future Status: Acute (9) Possible urinary tract infection: Possible UTI, although significant number of squamous Urine culture Rocephin 1 g IV every 24 hours Status: Acute Additional A&P Information Diabetes mellitus type 2. Serum ketones negative. Sliding scale insulin. Hypothyroidism, TSH normal on medication Hypertension. Hold medicine secondary to dehydration Hyperlipidemia. Check triglyceride level in the morning secondary to some calcification of the pancreas as I suppose the possibility of pancreatitis in the past as the etiology of this Full code Observation, low risk for DVT Attestations Medical Necessity Statement*: Will need less than 2 midnight stay for evaluation and treatment of intractable vomiting Time Spent in Patient Care: Greater than 35 minutes Coding Level of Care Code Acute Performance Improvement Specialist for Chg Fwd Diagnoses Intractable vomiting R11.10 Dehydration E86.0 Leukocytosis D72.829 Acute kidney injury N17.9 Anemia D64.9 Elevated troponin R79.89 Pancreatic mass K86.89 Esophageal thickening K22.8 Possible urinary tract infection R39.89
--- NOTE | 2020-05-21 20:48 | ECG_ITS ---
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 Measurements Intervals [place] Rate: 103 P: 15 PA: 170 QRS: 10 QRSD: 88 T: 34 QT: 327 QTc: 430 Interpretive Statements SINUS TACHYCARDIA Compared to ECG 05/21/2020 17:06:59 No significant changes Electronically Signed On 05-23-2020 8:27:24 CDT by Brigida Carvajal M.D. [id number]
--- NOTE | 2020-05-21 22:16 | PC.NURSE ---
Verbal report given to Ronna LEW at [id number].
[2020-05-21 22:46] LABS: Troponin 5 6HR 22.53 ng/L (0-10); Troponin 5 6HR Delta -4.47 ng/L (0-12)
[2020-05-21 23:17] LABS: Glucose Point of Care 290 mg/dL (70-110)
[2020-05-22] VITALS (8 sets, daily range): BP systolic 89–144; BP diastolic 55–78; PULSE 87–111; RESP 17–22; TEMP 36.4–37.1; O2SAT 92–97
[2020-05-22] MEDS: pantoprazole 40 mg SDV IVP ×3 (00:07→23:58)
[2020-05-22] MEDS: pneumococcal (23 valent) SDV 0.5 mL IM (00:08)
[2020-05-22] MEDS: sodium chloride 0.9% 1,000 ML 125 ML IV ×4 (00:09→22:24)
[2020-05-22] MEDS: cefTRIAXone 1,000 MG in sodium chloride 0.9% (plus) 50 ML 100 MG IV ×2 (00:10→22:24)
[2020-05-22 05:08] LABS: Basophils % 0.3 %; Eosinophils # 0.3 10^3/uL (0.0-0.8); Eosinophils % 2.7 %; Hematocrit 32.4 % (37.0-47.0); Lymphocytes # 0.7 10^3/uL (0.8-4.8); Lymphocytes % 7.2 %; Mean Corpuscular HGB Conc 30.9 g/dL (30.0-36.0); Mean Corpuscular Hemoglobin 26.7 pg (28.0-34.0); Mean Corpuscular Volume 86.4 fL (81-99); Mean Platelet Volume 9.6 fL (7.4-10.4); Monocytes # 1.1 10^3/uL (0.2-0.9); Monocytes % 10.7 %; Neutrophils # 8.01 10^3/uL (1.8-7.7); Neutrophils % 78.5 %; Nucleated Red Blood Cells % 0 %; Platelet Count 142 10^3/cmm (130-400); Red Blood Count 3.75 10^6/uL (4.1-5.3); Red Cell Distribution Width 13.8 % (12.1-15.1); White Blood Count 10.2 10^3/uL (4.0-10.0)
[2020-05-22 05:42] LABS: Triglycerides 236 mg/dL (0-150)
[2020-05-22 05:43] LABS: Alanine Aminotransferase 15 U/L (0-33); Albumin Level 3.2 g/dL (3.5-5.2); Alkaline Phosphatase 77 IU/L (35-105); Anion Gap 16.5 (5-19); Aspartate Amino Transferase 12 U/L (0-32); Blood Urea Nitrogen 31 mg/dL (8-23); Calcium 8.6 mg/dL (8.5-10.5); Carbon Dioxide 21 mmol/L (22-29); Chloride 105 mmol/L (98-107); Globulin 2.5 g/dL (1.3-4.6); Glomerular Filtration Rate 37.5 mL/min (90-130); Glucose 182 mg/dL (65-115); Osmolality Calculated 288 mOsm/kg (285-295); Potassium 4.5 mmol/L (3.5-5.1); Sodium 138 mmol/L (136-145); Total Bilirubin 0.3 mg/dL (0.15-1.2); Total Protein 5.7 g/dL (6.6-8.7)
[2020-05-22] MEDS: alum-mag-hydroxide-sime 30 mL UDC PO (05:53)
[2020-05-22 07:18] LABS: Glucose Point of Care 182 mg/dL (70-110)
[2020-05-22] MEDS: atorvastatin 40 mg Tablet 20 MG PO (08:17)
[2020-05-22] MEDS: desvenlafaxine 50 mg Tablet PO (08:17)
[2020-05-22] MEDS: levothyroxine 100 mcg Tablet PO (08:17)
--- NOTE | 2020-05-22 09:46 | PC.NURSE ---
pts telemetry monitoring showing a-fib with a rate of 125. Dr. Anderson notified, EKG performed and showed a-fib with RVR, pt asymptomatic and states she doesn't have a history of a-fib. no new orders received. pt heart rate now showing 150s-170's. Dr. Anderson notified of this, no new orders received.
--- NOTE | 2020-05-22 09:48 | PM.PN ---
Subjective Subjective: Interval history: Chart reviewed, has been n.p.o. and is requesting something to drink, no nausea or vomiting overnight per nursing staff. Has been tachycardic, rhythm appears to be sinus, will give trial of metoprolol. Noted to be hypotensive following low-dose metoprolol though heart rate has improved. Has been able to tolerate clear liquid diet, ambulatory. updated at bedside. Had a bowel movement earlier today which was normal. Medications: Reviewed: Yes Medication Review Details: Active Medications Generic Name Dose Route Start Last Admin Trade Name Freq PRN Reason Stop Dose Admin Acetaminophen 650 mg 05/21/20 22:39 Tylenol PO Q6H PRN Mild/Mod Pain Or Temp >/= 101 Atorvastatin Calci um 20 mg 05/22/20 09:00 05/22/20 08:17 Lipitor PO 20 mg DAILY LIZETT Administration Desvenlafaxine 50 mg 05/22/20 09:00 05/22/20 08:17 Pristiq PO 50 mg DAILY LIZETT Administration Dextrose 25 ml 05/21/20 22:39 D50w IVP ONCE PRN hypoglycemia prot ocol Protocol Dextrose 50 ml 05/21/20 22:39 D50w IVP PRN PRN hypoglycemia prot ocol Protocol Glucagon 1 mg 05/21/20 22:39 Glucagen IM ONCE PRN Adult Acute Hypog lycemia Prot. Protocol Sodium Chloride 1,000 mls @ 125 m ls/hr 05/21/20 22:39 05/22/20 08:16 Sodium Chloride 0.9% IV 125 mls/hr .Q8H LIZETT Administration Ceftriaxone Sodium 1,000 mg/ 50 mls @ 100 mls/ hr 05/21/20 22:39 05/22/20 00:10 Sodium Chloride IV 100 mls/hr Q24H LIZETT Administration Protocol Dextrose 500 mls @ 100 mls /hr 05/21/20 22:39 D5w IV ONCE PRN Adult Acute Hypog lycemia Prot Protocol Insulin Aspart 0 unit 05/21/20 22:39 05/22/20 08:17 Novolog SUBCUT 4 unit WM&BEDTIME LIZETT Administration Protocol Levothyroxine Sodi um 100 mcg 05/22/20 09:00 05/22/20 08:17 Synthroid PO 100 mcg DAILY LIZETT Administration Ondansetron HCl 4 mg 05/21/20 22:39 Zofran IVP Q6H PRN vomiting, or N/V if npo Pantoprazole Sodiu m 40 mg 05/21/20 22:39 05/22/20 00:07 Protonix IVP 40 mg Q12H LIZETT Administration No Known Allergies Allergy (Verified 05/21/20 14:38) Vitals/I&O/Wt Last Vital Signs Temp 98.8 F 05/22/20 07:55 Pulse 104 H 05/22/20 07:55 Resp 22 H 05/22/20 07:55 BP 111/64 05/22/20 07:55 Pulse Ox 93 05/22/20 07:55 05/21/20 05/22/20 05/22/20 22:59 06:59 14:59 Intake Total 1999 1000 / 1000 Balance 1999 1000 / 1000 Weight last 48 hrs Weight 77.649 kg Weight 77.111 kg Physical Exam Const: COMMON NORMALS: no acute distress and patient oriented x3 GENERAL APPEARANCE: cooperative and comfortable ORIENTATION/CONSCIOUSNESS: Yes awake HENMT: COMMON NORMALS: normocephalic, atraumatic, hearing grossly normal bilaterally and moist oral mucous membranes HEAD & SCALP: normocephalic and atraumatic Eye: COMMON NORMALS: Equal, round and reactive pupils present, EOMs intact bilaterally and conjunctivae normal CONJUNCTIVA: Yes conjunctivae normal PUPIL: Yes Equal, round and reactive pupils present Neck/C-Spine: COMMON NORMALS: full ROM GENERAL: Yes normal visual inspection and Yes trachea midline Resp: COMMON NORMALS: normal respiratory effort, No retractions, No use of accessory muscles and clear to auscultation bilaterally EFFORT & INSPECTION: Yes able to speak in complete sentences, Yes symmetric chest movement and No tachypneic AUSCULTATION: clear to auscultation bilaterally Cardio: COMMON NORMALS: regular rate, regular rhythm, S1 normal heart sound present, S2 normal heart sound present and No murmurs present (Cardio) RATE: regular rate RHYTHM: regular rhythm HEART SOUNDS: S1 normal heart sound present and S2 normal heart sound present GI: COMMON NORMALS: Normal to inspection, nondistended, normoactive bowel sounds present, Soft to palpation and non-tender PALPATION: Yes Soft to palpation Extremity: COMMON NORMALS: normal to inspection, full ROM and no clubbing, cyanosis or edema; negative for no pedal edema Neuro: COMMON NORMALS: patient oriented x3, moves all extremities, no focal motor deficits, no sensory deficits noted and gait normal Psych: COMMON NORMALS: mental status grossly normal, Normal thought process present, cooperative, normal affect and speech normal SPEECH: Yes normal speech THOUGHT PROCESS: Normal thought process present Skin: COMMON NORMALS: no rashes or lesions noted, no jaundice, no petechiae and no mottling GENERAL SKIN EXAM: no rashes or lesions noted Data : 05/22/20 04:45 05/22/20 04:45 A&P Assessment and plan (1) Intractable vomiting: -presented with intractable N/V, improved, no antiemetics required so far -start on CLD; advance as tolerated -antiemetics as needed -IVF hydration -imaging reviewed with noted coastal thickening of esophagus, constipation, cystic lesion in pancreas, left renal cyst -CT head shows heterogenous density in expected location of the 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; no indication of increased intracranial pressure -start on bowel regimen Status: Acute Qualifiers: Nausea presence: with nausea Vomiting type: unspecified Qualified Code(s): R11.2 - Nausea with vomiting, unspecified (2) Esophageal thickening: -Noted on imaging, could be secondary to esophagitis -On PPI Status: Acute (3) Pancreatic mass: -Seems to be incidental finding, will need outpatient f/u Status: Acute (4) Acute kidney injury: -Secondary to dehydration -IVF hydration -Continue to monitor renal function, renally dose meds, avoid nephrotoxins -Baseline renal function unknown -continue to hold ACEi Status: Acute (5) Anemia: -Unknown type, severity as no baseline labs to reference -Monitor hemoglobin Status: Acute Qualifiers: Anemia type: unspecified type Qualified Code(s): D64.9 - Anemia, unspecified (6) Elevated troponin: -Noted troponin elevation with no significant delta x 6 hours -Likely type II secondary to demand ischemia from dehydration -Telemetry monitoring -Sinus tachycardia noted, trial of beta-joe IV; appears to be paroxysmal A. fib Status: Acute (7) Possible urinary tract infection: -UA sample somewhat contaminated but positive for pyuria and bacteria -On empiric ceftriaxone -Improved leukocytosis -f/u blood and urine cx Status: Acute (8) DM type 2 (diabetes mellitus, type 2): -hx of IDDM type II -check A1c -Accu-Cheks, ISS, hypoglycemia precautions Status: Chronic Qualifiers: Diabetes mellitus complication status: without complication Diabetes mellitus adjunct faculty for medical terminology insulin use: with adjunct faculty for medical terminology use Qualified Code(s): E11.9 - Type 2 diabetes mellitus without complications; Z79.4 - halfway (current) use of insulin (9) Dehydration: -On IVF hydration Status: Acute (10) Leukocytosis: -Likely secondary to UTI as noted above Status: Acute Qualifiers: Leukocytosis type: unspecified Qualified Code(s): D72.829 - Elevated white blood cell count, unspecified Additional A&P Information -hx of HTN; antihypertensives on hold due to dehydration and hypotension -Dyslipidemia; on statin -Hypothyroidism; on levothyroxine, TSH wnl -CLD, advance as tolerated -GI ppx with PPI -DVT ppx with SCDs, no AC due to anemia -Dispo: home -Code status: FULL code Attestations Medical Necessity Statement*: Patient requires hospitalization for continued IV fluid hydration due to dehydration, monitoring of renal function, monitoring of hemoglobin, telemetry monitoring given tachycardia. Time Spent in Patient Care: Greater than 35 minutes (>than 50% of time spent in counselling and/or direct pt care on unit). Coding Level of Care Code Acute Boat Finisher for Chg Fwd Exam Comprehensive Diagnoses Intractable vomiting R11.2 Nausea presence: with nausea Vomiting type: unspecified Esophageal thickening K22.8 Pancreatic mass K86.89 Acute kidney injury N17.9 Anemia D64.9 Anemia type: unspecified type Elevated troponin R79.89 Possible urinary tract infection R39.89 DM type 2 (diabetes mellitus, type 2) E11.9; Z79.4 Diabetes mellitus complication status: without complication Diabetes mellitus senior care insulin use: with senior care use Dehydration E86.0 Leukocytosis D72.829 Leukocytosis type: unspecified
[2020-05-22] MEDS: metoprolol tartrate 1 mg/1 mL SDV 5 mL 5 MG IV (10:17)
[2020-05-22 10:39] LABS: Glucose Point of Care 169 mg/dL (70-110)
--- NOTE | 2020-05-22 11:03 | PC.CHAP ---
Pastoral Care Encounter/Spiritual Assessment Type of Contact [] Declined soda fountain manager visit [] Patient/Family/Request visit [] Outpatient visit [] Follow-up visit [] Physician referral [] Code/Alert [xx] Routine visit [] Staff referral [] Actively dying [] Patient sleeping [] Family support [] [] Out of room [] Palliative care [] [] Receiving care in room [] Pre-surgical visit [] Trauma [] Long length of stay [] ICU visit [] Other: Relational/Emotional Strength [xx] Patient feels connected with others/family/visitors/staff [] Distress [] Loneliness/isolation [] Abandonment Spirituality of Patient [xx] Person of Chanda [xx] Attends Denominational of their Chanda [xx] Believes in Prayer [xx] Reads Bible or Amish materials [] There are Spiritual issues to be addressed Chicken Cleaner Interventions [xx] Prayer [xx] Active listening [xx] Non-anxious presence [] Spiritual/emotional support [] Crisis/trauma care [] Spiritual counseling [] Bereavement support [] Provided bereavement packet [xx] Provided Bible/devotional materials [] Provided toy/stuffed animal, coloring book to patient or family member [] Provided Communion [] Anointing/[place] [] Salvation [xx] Completed spiritual assessment [] Other: Impact on Illness or Injury [] Angry [] Fearful [] Anxious [] Often cries [] Exhaustion [] Unable to work [] Unable to attend advent [] Unable to walk/stand [] Unable to read [] Unable to drive [] Unable to eat/drink [] Unable to sleep [] Unable to be with family [] Patient intubated [] Other: Summary: Pt is from [facility]. She came to [facility] for a COVID test (negative) but AFIB was discovered. Thus, she was admitted to the hospital unexpectedly. She has excellent support from family, friends, and hoahaoism family. Her will bring her glasses, cell phone, etc to her today when he visits. I left a Daily Bread in her room (she reads it at home) so that she can read once she has her glasses. Joined with her in prayer. Time spent with patient: 10 mins
[2020-05-22] MEDS: acetaminophen 325 mg Tablet 650 MG PO ×2 (11:22→22:23)
--- NOTE | 2020-05-22 11:27 | ECG_ITS ---
[facility] Test Date: 2020-05-22 Pat Name: Ambika Nichols Department: Room: 251 Gender: Female Grounds Maintenance Manager: : 1955 Requested By: Azul Anderson Order Number: [id number] Dale MD: Brigida Carvajal M.D. Measurements Intervals [place] Rate: 125 P: [place]: -1 QRS: 31 QRSD: 86 T: 30 QT: 295 QTc: 427 Interpretive Statements ATRIAL FIBRILLATION WITH RAPID VENTRICULAR RESPONSE MINIMAL ST DEPRESSION [0.025+ mV ST DEPRESSION] Compared to ECG 05/21/2020 21:08:54 ST (T wave) deviation now present Sinus tachycardia no longer present Electronically Signed On 05-23-2020 7:54:53 CDT by Brigida Carvajal M.D. [id number] f
[2020-05-22 16:46] LABS: Glucose Point of Care 182 mg/dL (70-110)
[2020-05-22 20:31] LABS: Glucose Point of Care 230 mg/dL (70-110)
[2020-05-22] MEDS: metoprolol tartrate 25 mg Tablet 12.5 MG PO (22:23)
[2020-05-23 03:56] VITALS: BP 130/61; PULSE 89; RESP 18; TEMP 36.8; O2SAT 94
[2020-05-23 05:34] LABS: Basophils % 0.2 %; Eosinophils # 0.5 10^3/uL (0.0-0.8); Eosinophils % 6.1 %; Hematocrit 30.4 % (37.0-47.0); Hemoglobin 9.2 g/dL (11.5-15.3); Lymphocytes # 1.1 10^3/uL (0.8-4.8); Lymphocytes % 13.6 %; Mean Corpuscular HGB Conc 30.3 g/dL (30.0-36.0); Mean Corpuscular Hemoglobin 26.6 pg (28.0-34.0); Mean Corpuscular Volume 87.9 fL (81-99); Mean Platelet Volume 9.8 fL (7.4-10.4); Monocytes # 0.8 10^3/uL (0.2-0.9); Monocytes % 9.6 %; Neutrophils # 5.81 10^3/uL (1.8-7.7); Neutrophils % 70.1 %; Nucleated Red Blood Cells % 0 %; Platelet Count 145 10^3/cmm (130-400); Red Blood Count 3.46 10^6/uL (4.1-5.3); Red Cell Distribution Width 13.7 % (12.1-15.1); White Blood Count 8.3 10^3/uL (4.0-10.0)
[2020-05-23 06:04] LABS: Anion Gap 14.2 (5-19); Blood Urea Nitrogen 29 mg/dL (8-23); Calcium 8.6 mg/dL (8.5-10.5); Carbon Dioxide 20 mmol/L (22-29); Chloride 106 mmol/L (98-107); Glomerular Filtration Rate 44.8 mL/min (90-130); Glucose 158 mg/dL (65-115); Osmolality Calculated 282 mOsm/kg (285-295); Potassium 4.2 mmol/L (3.5-5.1); Sodium 136 mmol/L (136-145)
[2020-05-23 06:10] LABS: Estmated Average Glucose 263; Hemoglobin A1C 10.8 % (4.0-6.0)
[2020-05-23] MEDS: acetaminophen 325 mg Tablet 650 MG PO ×2 (06:17→22:03)
[2020-05-23] MEDS: sodium chloride 0.9% 1,000 ML 125 ML IV (06:18)
[2020-05-23 06:41] LABS: Glucose Point of Care 160 mg/dL (70-110)
[2020-05-23 07:07] VITALS: BP 102/78; PULSE 90; RESP 18; TEMP 37.1; O2SAT 94
[2020-05-23] MEDS: levothyroxine 100 mcg Tablet PO (08:28)
[2020-05-23] MEDS: metoprolol tartrate 25 mg Tablet 12.5 MG PO ×2 (08:28→17:49)
[2020-05-23] MEDS: desvenlafaxine 50 mg Tablet PO (08:29)
[2020-05-23] MEDS: atorvastatin 40 mg Tablet 20 MG PO (08:29)
[2020-05-23 10:46] LABS: Glucose Point of Care 245 mg/dL (70-110)
[2020-05-23] MEDS: pantoprazole 40 mg SDV IVP (11:03)
[2020-05-23 12:00] VITALS: BP 147/73; PULSE 89; RESP 16; TEMP 36.6; O2SAT 100
[2020-05-23 15:44] VITALS: BP 158/74; PULSE 97; RESP 18; TEMP 36.7; O2SAT 97
[2020-05-23 17:00] LABS: Glucose Point of Care 194 mg/dL (70-110)
[2020-05-23] MEDS: apixaban 5 mg Tablet PO (17:49)
--- NOTE | 2020-05-23 17:58 | PC.NURSE ---
Patient reports wanting to discharge home with xarelto instead of eliquis due to ulloa with insurance, discussed with Dr. Ramos verbalized understanding and will place on xarelto for discharge.
--- NOTE | 2020-05-23 18:07 | PM.PN ---
Subjective Subjective: Interval history: no overnight event.Tolerating diet well. no nausea or vomiting overnight,no palpitation,chest pain,sob.Slept well overnight.H.R well controlled ( mid 80s on tele and for most in NSR) on metoprolol 12.5 mg oral q12 h daily.She was started on eliquis 5 mg oral q12 h daily for CHADS VACS Score of 3 and Non valvular A.Fib. We will monitor for any Bleed post eliuis initiation as well as for other possible side effects. Medications: Reviewed: Yes Vitals/I&O/Wt Last Vital Signs Temp 98.0 F 05/23/20 15:44 Pulse 97 05/23/20 15:44 Resp 18 05/23/20 15:44 BP 158/74 05/23/20 15:44 Pulse Ox 97 05/23/20 15:44 05/23/20 05/23/20 05/23/20 06:59 14:59 22:59 Intake Total 987.5 / 4463.75 540 / 540 420 / 960 Output Total 400 / 400 400 / 400 Balance 587.5 / 4063.75 540 / 540 20 / 560 Weight last 48 hrs Weight 79.832 kg Weight 77.649 kg Physical Exam Const: COMMON NORMALS: patient oriented x3 HENMT: COMMON NORMALS: normocephalic, atraumatic, hearing grossly normal bilaterally and external ears normal HEAD & SCALP: normocephalic and atraumatic EXTERNAL EAR: Yes external ears normal Eye: COMMON NORMALS: no scleral icterus GENERAL EYE: appearance normal, both eyes and all related structures Chest: COMMONS NORMALS: normal inspection of the chest and normal palpation of entire chest wall CHEST: Yes Symmetrical chest wall rise Resp: COMMON NORMALS: normal respiratory effort, No retractions, No use of accessory muscles and clear to auscultation bilaterally EFFORT & INSPECTION: Yes symmetric chest movement AUSCULTATION: clear to auscultation bilaterally Cardio: COMMON NORMALS: regular rate, regular rhythm, S1 normal heart sound present, S2 normal heart sound present, No gallops present (Cardio), No murmurs present (Cardio), No rub (Cardio) and Peripheral pulses 2+ throughout RATE: regular rate RHYTHM: regular rhythm HEART SOUNDS: S1 normal heart sound present and S2 normal heart sound present PERIPHERAL PULSES: Peripheral pulses 2+ throughout GI: COMMON NORMALS: Normal to inspection, nondistended, normoactive bowel sounds present, Soft to palpation, non-tender, No hepatosplenomegaly present and no masses AUSCULTATION: Yes normoactive bowel sounds PALPATION: Yes Soft to palpation and Yes No hepatosplenomegaly present RECTAL EXAM: deferred : COMMON NORMALS: Yes no CVA tenderness BLADDER/KIDNEY EXAM: Yes no CVA tenderness Back/Pelvis: COMMON NORMALS: no CVA tenderness Extremity: COMMON NORMALS: no clubbing, cyanosis or edema and no pedal edema Neuro: COMMON NORMALS: patient oriented x3 Data : 05/23/20 04:54 05/23/20 04:54 Micro: Microbiology 05/21/20 17:54 Urine Culture - Preliminary Urine,Clean Catch A&P Assessment and plan (1) A-fib: TSH:WNL 2D Echo:Normal left ventricular size, systolic function and wall thickness, with no diagnostic regional wall motion abnormalities. Left ventricular ejection fraction is estimated at 67 %. Grade 1 diastolic function with normal to mildly elevated filling pressure.Normal right ventricular size and systolic function.Normal pulmonary artery pressure.No pericardial effusion.No prior similar studies to compare. Continue Metoprolol 12.5 mg q12 oral daily for now. Status: Acute (2) Elevated troponin: Noted troponin elevation with no significant delta x 6 hours -Likely type II secondary to demand ischemia from dehydration -Telemetry monitoring -Sinus tachycardia noted, trial of beta-joe IV; appears to be paroxysmal A. 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 Status: Acute Qualifiers: Leukocytosis type: unspecified Qualified Code(s): D72.829 - Elevated white blood cell count, unspecified (5) Acute kidney injury: -Secondary to dehydration -IVF hydration -Continue to monitor renal function, renally dose meds, avoid nephrotoxins -Baseline renal function unknown -continue to hold ACEi Status: Acute (6) Anemia: -Unknown type, severity as no baseline labs to reference -Monitor hemoglobin Status: Acute Qualifiers: Anemia type: unspecified type Qualified Code(s): D64.9 - Anemia, unspecified (7) Pancreatic mass: Seems to be incidental finding, will need outpatient f/u Status: Acute (8) Esophageal thickening: Likely esophagitis.Continue PPI Status: Acute (9) Possible urinary tract infection: Continue Ceftraixone for now. Status: Acute (10) DM type 2 (diabetes mellitus, type 2): Monitor FSG. Status: Chronic Qualifiers: Diabetes mellitus assisted insulin use: with steak tenderizer machine use Diabetes mellitus complication status: without complication Qualified Code(s): E11.9 - Type 2 diabetes mellitus without complications; Z79.4 - rehabilitation consultant (current) use of insulin Additional A&P Information -hx of HTN; antihypertensives on hold due to dehydration and hypotension -Dyslipidemia; on statin -Hypothyroidism; on levothyroxine, TSH wnl -CLD, advance as tolerated -GI ppx with PPI -DVT ppx :on AC Attestations Medical Necessity Statement*: she needs to stay for [place]LIM[place] improvement as well Ac initation and A.fib initial work up Coding Level of Care Code Acute Medicaid Billing Clerk for Chg Fwd Diagnoses A-fib I48.91 Elevated troponin R79.89 Intractable vomiting R11.2 Vomiting type: unspecified Nausea presence: with nausea Leukocytosis D72.829 Leukocytosis type: unspecified Acute kidney injury N17.9 Anemia D64.9 Anemia type: unspecified type Pancreatic mass K86.89 Esophageal thickening K22.8 Possible urinary tract infection R39.89 DM type 2 (diabetes mellitus, type 2) E11.9; Z79.4 Diabetes mellitus steak tenderizer machine insulin use: with assisted use Diabetes mellitus complication status: without complication
[2020-05-23 18:54] VITALS: BP 164/76; PULSE 81; RESP 18; TEMP 37.4; O2SAT 96
[2020-05-23 21:18] LABS: Glucose Point of Care 283 mg/dL (70-110)
--- NOTE | 2020-05-23 21:35 | USCV_ITS ---
Ambika Nichols Age: 65 Gender: F : 1955 Exam Date: 05/23/2020 08:16 Ordering Phys: Azul Anderson MD Technologist: Enrrique Rios Exam Location: [facility] [place] Indication: AFIB BP: 132 / 65 HR: 103 Rhythm: Sinus Technical Quality: Fair MEASUREMENTS (Male / Female) Normal Values 2D ECHO LV Diastolic Diameter PLAX 3.9 cm 4.2 - 5.9 / 3.9 - 5.3 cm LV Systolic Diameter PLAX 2.3 cm IVS Diastolic Thickness 0.9 cm 0.6 - 1.0 / 0.6 - 0.9 cm IVS Systolic Thickness 1.2 cm LVPW Diastolic Thickness 1.1 cm 0.6 - 1.0 / 0.6 - 0.9 cm LVPW Systolic Thickness 1.4 cm LVOT Diameter 2.0 cm LV Ejection Fraction 2D Teich 72.4 % LV Ejection Fraction MOD 2C 68.9 % LV Ejection Fraction 2C AL 69.3 % LA Diameter 4.8 cm LA Width 3.6 cm LA Height 4.6 cm RA Width 3.3 cm RA Height 4.2 cm M-MODE LV Diastolic Diameter MM 5.7 cm 4.2 - 5.9 / 3.9 - 5.3 cm LV Systolic Diameter MM 4.0 cm LV Ejection Fraction MM Teich 54.7 % IVS Diastolic Thickness MM 1.3 cm 0.6 - 1.0 / 0.6 - 0.9 cm IVS Systolic Thickness MM 1.5 cm LVPW Diastolic Thickness MM 1.2 cm 0.6 - 1.0 / 0.6 - 0.9 cm LVPW Systolic Thickness MM 1.5 cm RV Diastolic Diameter MM 1.9 cm Aortic Annulus Diameter 3.9 cm LA Ao Ratio MM 1.2 MV E Point Septal Separation 1.1 cm DOPPLER AV Peak Velocity 127.0 cm/s LVOT Peak Velocity 114.0 cm/s AV Area Cont Eq vti 2.8 cm squared AV Area Cont Eq pk 2.8 cm squared MV Area PHT 5.1 cm squared Mitral E to A Ratio 0.7 MV E' Velocity 6.0 cm/s Mitral E to MV E' Ratio 7.1 Mitral E to LV E' Lateral Ratio 10.9 Mitral E to LV E' Septal Ratio 5.3 TR Peak Velocity 172.0 cm/s TR Peak Gradient 11.8 mmHg TV Peak E Velocity 113.0 cm/s Right Atrial Pressure 3.0 mmHg Pulmonary Artery Systolic Pressu 14.8 mmHg FINDINGS Left Ventricle Normal left ventricular size, systolic function and wall thickness, with no diagnostic regional wall motion abnormalities. Left ventricular ejection fraction is estimated at 67 %. Grade 1 diastolic function with normal to mildly elevated filling pressure. Right Ventricle Normal right ventricular size and systolic function. Right ventricular systolic pressure 14.8 mmHg. Right Atrium Right atrium not well visualized. Left Atrium Mildly increased left atrial size. Mitral Valve Mild mitral annular calcification. Mildly thickened mitral valve. No mitral valve stenosis. No mitral valve regurgitation. Aortic Valve Aortic valve not well visualized. Probably tricuspid aortic valve. No aortic valve stenosis. No aortic valve regurgitation. Tricuspid Valve Structurally normal tricuspid valve. Pulmonic Valve Pulmonic valve not well visualized. Pericardium No pericardial effusion. Aorta Normal size aortic root. CONCLUSIONS 1. Normal left ventricular size, systolic function and wall thickness, with no diagnostic regional wall motion abnormalities. Left ventricular ejection fraction is estimated at 67 %. Grade 1 diastolic function with normal to mildly elevated filling pressure. 2. Normal right ventricular size and systolic function. 3. Normal pulmonary artery pressure. 4. No pericardial effusion. 5. No prior similar studies to compare. Brigida Carvajal MD (Electronically Signed) Final Date: 23 May 2020 12:11 S
[2020-05-23] MEDS: cefTRIAXone 1,000 MG in sodium chloride 0.9% (plus) 50 ML 100 MG IV (21:53)
[2020-05-24] VITALS: BP 125/64; PULSE 77; RESP 18; TEMP 36.9; O2SAT 95
[2020-05-24] MEDS: pantoprazole 40 mg SDV IVP (01:57)
[2020-05-24 04:00] VITALS: BP 153/63; PULSE 77; RESP 18; TEMP 36.5; O2SAT 96
[2020-05-24 06:36] LABS: Glucose Point of Care 182 mg/dL (70-110)
[2020-05-24 07:18] VITALS: BP 157/88; PULSE 102; RESP 18; TEMP 36.6; O2SAT 100
--- NOTE | 2020-05-24 07:40 | PC.NURSE ---
Patient sitting up on side of bed, denies pain or needs, discussed plan of care, verbalized understanding, updated pharmacy preference per patient request, denies further needs.
--- NOTE | 2020-05-24 07:49 | PC.NURSE ---
Dr. Ramos gave new orders to this nurse to change eliquis to xarelto 20mg PO daily, see MAR for further details, patients plan is to discharge with xarelto per Dr. Ramos.
[2020-05-24] MEDS: atorvastatin 40 mg Tablet 20 MG PO (08:32)
[2020-05-24] MEDS: metoprolol tartrate 25 mg Tablet 12.5 MG PO (08:32)
[2020-05-24] MEDS: sennosides-docusate Tablet 1 TAB PO (08:32)
[2020-05-24] MEDS: rivaroxaban 10 mg Tablet 20 MG PO (08:32)
[2020-05-24] MEDS: levothyroxine 100 mcg Tablet PO (08:32)
[2020-05-24 08:33] VITALS: PULSE 75; O2SAT 95
[2020-05-24] MEDS: desvenlafaxine 50 mg Tablet PO (08:54)
--- NOTE | 2020-05-24 10:29 | PC.NURSE ---
[facility] and requested meds to bed.
--- NOTE | 2020-05-24 10:31 | PC.NURSE ---
Discharge instructions provided, verbalized understanding, awaiting meds to beds delivery.
[2020-05-24 10:44] VITALS: PULSE 75; O2SAT 95
--- NOTE | 2020-05-24 11:04 | PM.DCS ---
Discharge Providers Date of Admission: 05/22/20 18:03 Date of Discharge: May 24, 2020 Attending Provider at Admission: Luis Thayer MD Attending Provider at Discharge: Mike Ramos MD Diagnoses at Discharge Discharge Diagnosis (1) A-fib: Status: Acute (2) Elevated troponin: (3) Intractable vomiting: Status: Resolved Qualifiers: Nausea presence: with nausea Vomiting type: unspecified Qualified Code(s): R11.2 - Nausea with vomiting, unspecified (4) Leukocytosis: Status: Resolved Qualifiers: Leukocytosis type: unspecified Qualified Code(s): D72.829 - Elevated white blood cell count, unspecified (5) Acute kidney injury: (6) Anemia: Qualifiers: Anemia type: unspecified type Qualified Code(s): D64.9 - Anemia, unspecified (7) Pancreatic mass: (8) Esophageal thickening: (9) Possible urinary tract infection: (10) DM type 2 (diabetes mellitus, type 2): Qualifiers: Diabetes mellitus complication status: without complication Diabetes mellitus mortuary operations manager insulin use: with jail use Qualified Code(s): E11.9 - Type 2 diabetes mellitus without complications; Z79.4 - half-way (current) use of insulin Reason for Visit Reason for Visit: lethargic, nausea, vomiting, head congestion Hospital Course Hospital Course: 65 y/o F with PMH of HTN and DM,chronic anemia, admitted with intractable nausea and vomiting and subsequent dehydration, was managed with IV fluid hydration.She was also treated for UTI with ABX and was also found to have new onset a.fib during this hospital stay for which a 2D echo was done. which showed good E.F and no RWMA.She was started on Ac as well and will follow cardiology as outpatient. C.T Abdomen and pelvis without contrast done during this admission showed cystic lesion with some internal complexity and peripheral calcifications in the pancreatic body. Differential includes pancreatic pseudocyst, serous cystadenoma, mucinous cystic neoplasm, and intraductal papillary mucinous neoplasm. There is mucosal thickening of the esophagus and gastroesophageal junction. Differential includes esophagitis/gastritis and neoplasm.She will follow G.I as outpatient. Patient responded well to current medical management and was discharged in stable condition. Physical Exam Const: COMMON NORMALS: patient oriented x3 HENMT: COMMON NORMALS: normocephalic, atraumatic, hearing grossly normal bilaterally and external ears normal HEAD & SCALP: normocephalic and atraumatic EXTERNAL EAR: Yes external ears normal Eye: COMMON NORMALS: no scleral icterus GENERAL EYE: appearance normal, both eyes and all related structures Chest: COMMONS NORMALS: normal inspection of the chest and normal palpation of entire chest wall CHEST: Yes Symmetrical chest wall rise Resp: COMMON NORMALS: normal respiratory effort, No retractions, No use of accessory muscles and clear to auscultation bilaterally EFFORT & INSPECTION: Yes symmetric chest movement AUSCULTATION: clear to auscultation bilaterally Cardio: COMMON NORMALS: regular rate, regular rhythm, S1 normal heart sound present, S2 normal heart sound present, No gallops present (Cardio), No murmurs present (Cardio), No rub (Cardio) and Peripheral pulses 2+ throughout RATE: regular rate RHYTHM: regular rhythm HEART SOUNDS: S1 normal heart sound present and S2 normal heart sound present PERIPHERAL PULSES: Peripheral pulses 2+ throughout GI: COMMON NORMALS: Normal to inspection, nondistended, normoactive bowel sounds present, Soft to palpation, non-tender, No hepatosplenomegaly present and no masses AUSCULTATION: Yes normoactive bowel sounds PALPATION: Yes Soft to palpation and Yes No hepatosplenomegaly present RECTAL EXAM: deferred : COMMON NORMALS: Yes no CVA tenderness BLADDER/KIDNEY EXAM: Yes no CVA tenderness Back/Pelvis: COMMON NORMALS: no CVA tenderness Extremity: COMMON NORMALS: no clubbing, cyanosis or edema and no pedal edema Neuro: COMMON NORMALS: patient oriented x3 Discharge Data Data Completed and Pending: Completed Studies During Hospitalization Category Date Time Status CT abdomen pelvis w con* [id number] Stat Cat Scan 05/21/20 17:[address] head wo con* [id number] Stat Cat Scan 05/21/20 20:21 Completed XR chest 1V [place] ble [id number] Stat Exams 05/21/20 14:41 Completed CV echo complete* [id number] Routine Ultrasound 05/23/20 21:35 Completed Labs from last 24 hours 05/24/20 05/23/20 05/23/20 06:20 21:08 16:49 POC Glucose 182 283 194 Vitals: Last Vital Signs Temp 98 F 05/24/20 07:18 Pulse 75 05/24/20 10:44 Resp 18 05/24/20 07:18 BP 157/88 05/24/20 07:18 Pulse Ox 95 05/24/20 10:44 Discharge Plan Discharge Patient Disposition: Home Condition: Stable Prescriptions: New metoprolol succinate 25 mg tablet extended release 24 hr 25 mg PO DAILY Qty: 30 RF: 0 Xarelto 20 mg tablet 20 mg PO DAILY Qty: 30 RF: 0 levofloxacin 750 mg tablet 750 mg PO DAILY 3 Days RF: 0 Continued tizanidine 4 mg tablet 4 mg PO DAILY RF: 0 simvastatin 40 mg tablet 40 mg PO DAILY RF: 0 levothyroxine 100 mcg tablet 100 mcg PO DAILY RF: 0 amlodipine 10 mg tablet 10 mg PO DAILY RF: 0 aspirin 81 mg Tablet,Chewable 81 mg PO DAILY RF: 0 lisinopril 40 mg tablet 40 mg PO DAILY RF: 0 Levemir FlexTouch U-100 Insuln 100 unit/mL (3 mL) insulin pen 42 unit SUBCUT BID RF: 0 desvenlafaxine succinate 50 mg tablet extended release 24 hr 50 mg PO DAILY RF: 0 Jardiance 25 mg tablet 25 mg PO DAILY RF: 0 Discharge Orders: Discharge Order (Routine); Ordered 05/24/20 Ordered By: Mike Ramos Referrals: Koffi Garcia MD [Physician] - 1 week (Call Dr. Garcia's office for Esophageal Thickening tomorrow for follow-up in 1 week at . ) Brigida Carvajal MD [Physician] - 1 week (Follow up with Dr. Carvajal at [facility] on Monday, June 01, 2020 at 2:45 PM. . ) Discharge Diet: Usual diet Discharge Activity: Resume usual activity Patient Instructions: Metoprolol (By mouth), Levofloxacin (By mouth), Rivaroxaban (By mouth), Atrial Fibrillation (DC), Urinary Tract Infection in Women (DC) Activity Restrictions/Additional Instructions: Kindly follow for management of new onset A.Fib Appointment scheduled for 2019 at 2:45. Kindly follow as an outpatient for evaluation of Pancreatic mass as well as for esophageal thickening found during this hospital stay. Call his office at for an appt in 1 week. Discharge Date/Time: 05/24/20 11:08 Discharge Attestations Time Spent in Discharge Care*: greater than 30 min Specific Discharge Activities: Specific discharge activities: educating patient, educating and/or supporting family/caregiver, documenting/other paperwork and evaluating patient/reviewing data Status at Discharge: Cognitive status at discharge: cognitively intact, Behavioral status at discharge: cooperative, Functional status at discharge: independent ambulation Overall status at discharge: patient is back to baseline Quality Metrics Clinical Quality Measures During this hospital stay, did patient experience: None Coding Level of Care Code Acute Explosives Operator for Chg Fwd Diagnoses A-fib I48.91 Elevated troponin R79.89 Intractable vomiting R11.2 Nausea presence: with nausea Vomiting type: unspecified Leukocytosis D72.829 Leukocytosis type: unspecified Acute kidney injury N17.9 Anemia D64.9 Anemia type: unspecified type Pancreatic mass K86.89 Esophageal thickening K22.8 Possible urinary tract infection R39.89 DM type 2 (diabetes mellitus, type 2) E11.9; Z79.4 Diabetes mellitus complication status: without complication Diabetes mellitus jail insulin use: with mortuary operations manager use
== END 2020-05-24 11:08 | disposition home or self-care (01) | DRG 683 ==
LOC: ER 20:36 → MEDSURG 21:17
PROVIDERS: Emergency Medicine; Family Medicine; Admitting Provider Internal Medicine; Visit Provider Internal Medicine
DX: N17.9 Acute kidney failure, unspecified (principal); N39.0 Urinary tract infection, site not specified; Q61.01 Congenital single renal cyst; E86.0 Dehydration; I48.91 Unspecified atrial fibrillation; R11.2 Nausea with vomiting, unspecified; M19.90 Unspecified osteoarthritis, unspecified site; E11.9 Type 2 diabetes mellitus without complications; E78.5 Hyperlipidemia, unspecified; I10 Essential (primary) hypertension; E03.9 Hypothyroidism, unspecified; Z85.89 Personal history of malignant neoplasm of other organs and systems; D64.9 Anemia, unspecified; K86.89 Other specified diseases of pancreas; K22.8 Other specified diseases of esophagus; K59.00 Constipation, unspecified; E89.3 Postprocedural hypopituitarism; Z79.84 Long term (current) use of oral hypoglycemic drugs; Z79.82 Long term (current) use of aspirin
CPT/HCPCS: 12345; 36415; 36416; 70450; 71045; 74177; 80048; 80053; 81001; 82009; 82550; 82962; 83036; 83605; 83690; 83735; 84443; 84478; 84484; 85025; 85610; 87086; 87426; 87804; 90471; 90732; 93005; 93306; 96372; 96375; 99283; C9113; G0378; J0696; J1815; J2405; J3490; J7030; Q9967

== ENCOUNTER 2020-09-30 08:10 | Outpatient (CLI) | payer MEDICARE, SELFPAY ==
[2020-09-30 08:20] VITALS: BMI 25.9
--- NOTE | 2020-09-30 08:21 | ECG_ITS ---
[facility] Test Date: 2020-09-30 Pat Name: Ambika Stephenn Department: Room: Gender: Female Manager Electrical: : 1955 Requested By: Brigida Carvajal Order Number: [id number] Dale MD: Brigida Carvajal M.D. Interpretive Statements NAME OF STUDY: LEXISCAN SESTAMIBI STRESS TEST INDICATION: Dyspnea PROCEDURE: At the baseline, the blood pressure was 158/70 mmHg with a heart rate of 83 bpm. The electrocardiogram showed normal sinus rhythm, normal axis with nonspecific ST changes. The Lexiscan was infused over a period of 20 seconds. A total of 0.4 milligrams of Lexiscan was infused. The stress phase was continued for a total of 5 minutes. Heart rate at the end of the stress phase was 91 bpm with a blood pressure of 140/54 mmHg and oxygen saturation of 95%. The EKG at the peak infusion revealed sinus rhythm with no significant ST-T wave changes. Sestamibi was injected 20 seconds after the Lexiscan infusion. Blood pressure at the end of the recovery phase was 140/54 mmHg, oxygen saturation 95% with a heart rate of 95 beats per minute. CONCLUSION: 1. No significant EKG changes with the LexiScan infusion. 2. No LexiScan induced chest pain or cardiac arrhythmia. 3. Normal blood pressure and heart rate response. 4. Sestamibi/sestamibi perfusion scan pending; see separate report. Electronically Signed On 09-30-2020 15:56:40 FILM PROCESSING SHIFT SUPERVISOR by Brigida Carvajal M.D. [id number]
--- NOTE | 2020-09-30 08:21 | NMCV_ITS ---
NM salomon perf SPECT r/s* [id number] Ambika Nichols Age: 65 Gender: F : 1955 Exam Date: 09/30/2020 09:45 Ordering Phys: Brigida Carvajal MD ([email or web address]) Technologist: STEPHANIE Lechuga Exam Location: [facility] Indications: Dyspnea STRESS TEST Please see separate stress test report in [facility] for full findings IMAGE PROTOCOL Rest/Stress 1 Lexiscan Day Radiopharmaceutical Dose (mCi) Administration Site Administered by Rest: Tc-99m 10.6 IV STEPHANIE Lechuga Sestamibi Stress:Tc-99m 32.5 IV STEPHANIE Mireles Sestamibi Rest: 30-Sep-2020 60 Discovery 630 Stress: 30-Sep-2020 30 Discovery 630 0.4mg Lexiscan. Supine position only as patient was unable to lay prone. SPECT RESULTS Technical Quality: Excellent Raw Data Analysis: Normal Image Corrections: No attenuation or motion correction applied Summed Stress Score: 0 Summed Rest Score: 0 Summed Difference Score: 0 PERFUSION FINDINGS SPECT images demonstrate homogeneous tracer distribution throughout the myocardium. FUNCTIONAL RESULTS (calculated via Gated SPECT) Stress Image LV EF (%): 82 Stress EDV (mL):44 TID: 0.69 Stress ESV (mL):8 FUNCTIONAL FINDINGS: The left ventricle is normal in size. Transient Ischemia Dilatation of 0.69. There is normal left ventricular systolic function. The left ventricular ejection fraction is normal with a value of 82%. There is normal left ventricular wall thickening. Normal end diastolic and end systolic volumes. IMPRESSIONS 1. Myocardial perfusion imaging is normal. 2. Overall left ventricular systolic function is normal without regional wall motion abnormalities. 3. The left ventricular ejection fraction is normal with a value of 82%. 4. Scan indicates low risk for cardiac events. Brigida Carvajal MD (Electronically Signed) Final Date: 01 October 2020 10:05 S
--- NOTE | 2020-09-30 08:23 | SUR.PREOP ---
INSUFFIENT PREP Patient took beta joe therapy 24 hours ago. Contraindicated for rena. Orders to change to lexiscan available. Patient agreeable. Dr Carvajal aware. Proceeding with the lexiscan.
[2020-09-30] MEDS: regadenoson 0.4 Mg/5 ml Syringe IVP (10:13)
--- NOTE | 2020-09-30 10:15 | SUR.PREOP ---
Patient reports no pain or discomfort at this time.
[2020-09-30 10:41] VITALS: BP 145/70; PULSE 80
== END 2020-09-30 08:11 | disposition home or self-care (01) ==
LOC: CDL 08:14
PROVIDERS: PCP Family Medicine; Visit Provider Internal Medicine Cardiovascular Disease
DX: R06.00 Dyspnea, unspecified (principal)
CPT/HCPCS: 78452; 93017; A9500; J2785

== ENCOUNTER 2020-10-05 13:37 | Outpatient (CLI) | payer MEDICARE, SELFPAY ==
--- NOTE | 2020-10-05 13:46 | MM_ITS ---
WS: [id number] BILATERAL SCREENING DIGITAL MAMMOGRAM WITH CAD HISTORY: SCREENING COMPARISON: 01/05/2019 Bilateral CC and MLO views submitted. Computer aided detection analyzed. Breast composition: The breasts are almost entirely fatty. No suspicious masses, microcalcifications or architectural distortion. Bilateral breast arterial calcifications. MM/[place] [id number] IMPRESSION: BI-RADS: 2-Benign FOLLOW UP: 1 Year Follow-up
== END 2020-10-05 13:38 | disposition home or self-care (01) ==
LOC: RADSHAW 13:40
PROVIDERS: PCP Family Medicine; Visit Provider Family Medicine
DX: Z12.31 Encounter for screening mammogram for malignant neoplasm of breast (principal)
CPT/HCPCS: 77067

== ENCOUNTER → 2021-03-02 09:10 | Outpatient (BNVA) | payer MEDICARE, SELFPAY | PROVIDERS: PCP Family Medicine; Referring Provider Family Medicine; Visit Provider Orthopaedic Surgery | DX: M54.9 Dorsalgia, unspecified (principal); M54.2 Cervicalgia; M48.061 Spinal stenosis, lumbar region without neurogenic claudication | CPT/HCPCS: 72050; 72110 ==

== ENCOUNTER 2021-03-22 12:49 | Outpatient (CLI) | payer MEDICARE, SELFPAY ==
--- NOTE | 2021-03-22 13:45 | MR_ITS ---
WS: [id number] MRI CERVICAL SPINE NONCONTRAST TECHNIQUE: Sagittal T1, T2 and STIR imaging. Axial T2, gradient, and fiesta imaging. CLINICAL INFORMATION: M54.2 - Cervicalgia COMPARISON: None. FINDINGS: Normal cervical alignment. No high-grade central canal stenosis. Cord signal is normal. Normal prever tebral soft tissues. C2-C3: Normal. C3-C4: Normal C4-C5: Mild disc osteophytic ridging. Spinal canal is patent. Mild facet arthropathy. Mild bilateral foraminal narrowing. C5-C6: Mild disc bulging and osteophytic ridging eccentric to the right. Tiny shallow central protrus ion. Spinal canal is patent. Mild to moderate right and mild left bony foraminal narrowing. C6-C7: No significant disc bulging. Spinal canal is patent. Mild left and no significant right forami nal narrowing. C7-T1: No significant disc bulging. Spinal canal and foramen are patent. Visualized brain stem structures: Normal. Prevertebral soft tissues: Normal. MR/MR cervical spin wo con* [id number] IMPRESSION: 1. Straightening of the normal cervical lordosis. Cord signal is normal. 2. Disc osteophyte complex C5-C6 eccentric to the right with mild to moderate right greater than left foraminal narrowing. Mild facet arthropathy at this lev el. Tiny central protrusion. 3. Otherwise mild bony foraminal narrowing bilateral C4-5 and left C6-7.
--- NOTE | 2021-03-22 14:30 | MR_ITS ---
WS: [id number] MRI LUMBAR SPINE NONCONTRAST TECHNIQUE: Sagittal T1, T2 and STIR imaging. Axial T1 and T2 imaging. CLINICAL INFORMATION: M48.061 - Spinal stenosis, lumbar region without neurogen... COMPARISON: None. FINDINGS: Mild lumbar curve. No acute compression. No high-grade central canal stenosis. Mild annular bulging L 2-L3, L3-L4, L4-L5. L1-L2: Normal. L2-L3: Mild annular bulging with a tiny central protrusion. Tiny annular fissure. Slight narrowing of the right greater than left subarticular recess. Spinal canal is patent. Foramen are patent. Mild fa cet arthropathy. L3-L4: Mild annular bulging with slight effacement of ventral thecal sac. Narrowing of the subarticul ar recess bilaterally. Mild facet arthropathy. Mild right and no significant left foraminal narrowing . Mild facet arthropathy. L4-L5: Mild annular bulging with a shallow central protrusion. Slight impingement on the traversing L 5 nerve roots bilaterally. Mild central canal stenosis. Moderate facet arthropathy. Mild right greate r than left foraminal narrowing. L5-S1: Slight annular bulging with osteophytic ridging. Narrowing of the right subarticular recess wi th slight impingement on the right S1 nerve root. Mild facet arthropathy. Foramen are patent. Partially visualized left renal cyst. Left renal cyst measuring 6.1 x 4.6 cm. MR/MR lumbar spine wo con* [id number] IMPRESSION: 1. Mild lumbar curve. No acute compression. No high-grade central canal stenos is. 2. Shallow central protrusion L4-5 with mild central canal stenosis and imping ement traversing L5 nerve roots bilaterally. Mild right L4-5 foraminal narrowin g. 3. Disc osteophytic ridging L5-S1 with narrowing of the right subarticular rec ess and slight impingement on the right S1 nerve root. 4. Shallow central disc bulging L3-4 with narrowing of the subarticular recess bilaterally and mild central canal stenosis. Mild right L3-4 foraminal narrowi ng. 5. Tiny shallow right pericentral/central protrusion L2-3 with a tiny annular fissure. Spinal canal is patent at this level. 6. Left renal cyst partially evaluated measuring 6.1 x 4.6 CM.
== END 2021-03-22 12:50 | disposition home or self-care (01) ==
LOC: RADWPI 12:50
PROVIDERS: PCP Family Medicine; Visit Provider Orthopaedic Surgery
DX: M54.2 Cervicalgia (principal); M48.061 Spinal stenosis, lumbar region without neurogenic claudication; N28.1 Cyst of kidney, acquired; M51.26 Other intervertebral disc displacement, lumbar region; M25.78 Osteophyte, vertebrae; M47.812 Spondylosis without myelopathy or radiculopathy, cervical region
CPT/HCPCS: 72141; 72148

== ENCOUNTER → 2021-04-04 10:19 | Outpatient (BNVA) | payer MEDICARE, SELFPAY | PROVIDERS: PCP Family Medicine; Referring Provider Orthopaedic Surgery; Visit Provider Anesthesiology Pain Medicine | DX: G89.29 Other chronic pain (principal); M54.2 Cervicalgia; M48.062 Spinal stenosis, lumbar region with neurogenic claudication; M51.36 Other intervertebral disc degeneration, lumbar region; M47.816 Spondylosis without myelopathy or radiculopathy, lumbar region; M54.16 Radiculopathy, lumbar region; M79.605 Pain in left leg; Z79.891 Long term (current) use of opiate analgesic | CPT/HCPCS: 99205 ==

== ENCOUNTER → 2021-04-17 12:06 | Outpatient (BNVA) | payer MEDICARE, SELFPAY | PROVIDERS: PCP Family Medicine; Visit Provider Anesthesiology Pain Medicine | DX: G89.29 Other chronic pain (principal); M54.16 Radiculopathy, lumbar region; E11.9 Type 2 diabetes mellitus without complications; Z79.4 Long term (current) use of insulin; Z79.891 Long term (current) use of opiate analgesic | CPT/HCPCS: 64483; 64484; J1100; J3490 ==

== ENCOUNTER → 2021-05-02 09:49 | Outpatient (BNVA) | payer MEDICARE, SELFPAY | PROVIDERS: PCP Family Medicine; Visit Provider Anesthesiology Pain Medicine | DX: G89.29 Other chronic pain (principal); M48.062 Spinal stenosis, lumbar region with neurogenic claudication; M51.36 Other intervertebral disc degeneration, lumbar region; M47.816 Spondylosis without myelopathy or radiculopathy, lumbar region; M54.16 Radiculopathy, lumbar region; M54.2 Cervicalgia; Z79.891 Long term (current) use of opiate analgesic | CPT/HCPCS: 99214 ==

== ENCOUNTER → 2021-06-19 14:14 | Outpatient (BNVA) | payer MEDICARE, SELFPAY | PROVIDERS: PCP Family Medicine; Visit Provider Family Medicine | DX: E03.9 Hypothyroidism, unspecified (principal); E78.2 Mixed hyperlipidemia; Z79.4 Long term (current) use of insulin; E11.9 Type 2 diabetes mellitus without complications; I10 Essential (primary) hypertension | CPT/HCPCS: 80053; 80061; 83036; 84439; 84443; 84481 ==

== ENCOUNTER → 2021-06-22 12:32 | Outpatient (BNVA) | payer MEDICARE, SELFPAY | PROVIDERS: PCP Family Medicine; Visit Provider Anesthesiology Pain Medicine | DX: G89.29 Other chronic pain (principal); M48.062 Spinal stenosis, lumbar region with neurogenic claudication; M51.36 Other intervertebral disc degeneration, lumbar region; M47.816 Spondylosis without myelopathy or radiculopathy, lumbar region; M54.16 Radiculopathy, lumbar region; M54.2 Cervicalgia; E11.9 Type 2 diabetes mellitus without complications; M79.605 Pain in left leg; M79.604 Pain in right leg; Z79.891 Long term (current) use of opiate analgesic; Z79.4 Long term (current) use of insulin | CPT/HCPCS: 99213 ==

== ENCOUNTER → 2022-01-18 09:50 | Outpatient (BNVA) | payer MEDICARE, SELFPAY | PROVIDERS: PCP Family Medicine; Visit Provider Emergency Medicine | DX: R19.8 Other specified symptoms and signs involving the digestive system and abdomen (principal); R10.9 Unspecified abdominal pain; R19.7 Diarrhea, unspecified; E11.9 Type 2 diabetes mellitus without complications; E78.2 Mixed hyperlipidemia; Z79.4 Long term (current) use of insulin; I10 Essential (primary) hypertension; E03.9 Hypothyroidism, unspecified | CPT/HCPCS: 80048; 80061; 83036; 84443 ==

== ENCOUNTER → 2022-01-22 13:02 | Outpatient (BNVA) | payer MEDICARE, SELFPAY | PROVIDERS: PCP Family Medicine; Visit Provider Emergency Medicine | DX: R19.8 Other specified symptoms and signs involving the digestive system and abdomen (principal); R10.9 Unspecified abdominal pain; R19.7 Diarrhea, unspecified | CPT/HCPCS: 83630; 87177; 87209; 87338; 87493; 87506 ==

== ENCOUNTER → 2022-04-03 09:40 | Outpatient (BNVA) | payer MEDICARE, SELFPAY | PROVIDERS: PCP Family Medicine; Visit Provider Family Medicine | DX: E11.9 Type 2 diabetes mellitus without complications (principal); Z79.4 Long term (current) use of insulin; I10 Essential (primary) hypertension; M51.36 Other intervertebral disc degeneration, lumbar region; N95.9 Unspecified menopausal and perimenopausal disorder; E03.9 Hypothyroidism, unspecified; I48.0 Paroxysmal atrial fibrillation; E78.2 Mixed hyperlipidemia; M54.16 Radiculopathy, lumbar region; K29.30 Chronic superficial gastritis without bleeding | CPT/HCPCS: 80053; 83036; 84443 ==

== ENCOUNTER → 2022-05-30 10:59 | Outpatient (BNVA) | payer MEDICARE, SELFPAY | PROVIDERS: PCP Family Medicine; Visit Provider Family Medicine | DX: E11.40 Type 2 diabetes mellitus with diabetic neuropathy, unspecified (principal); Z79.4 Long term (current) use of insulin; I10 Essential (primary) hypertension | CPT/HCPCS: 80053 ==

== ENCOUNTER → 2022-08-02 11:06 | Outpatient (BNVA) | payer MEDICARE, SELFPAY | PROVIDERS: PCP Family Medicine; Visit Provider Family Medicine | DX: I10 Essential (primary) hypertension (principal); M51.36 Other intervertebral disc degeneration, lumbar region; E11.9 Type 2 diabetes mellitus without complications; Z79.4 Long term (current) use of insulin; E11.40 Type 2 diabetes mellitus with diabetic neuropathy, unspecified; I48.0 Paroxysmal atrial fibrillation; K22.70 Barrett's esophagus without dysplasia; E03.9 Hypothyroidism, unspecified; M54.16 Radiculopathy, lumbar region; E11.42 Type 2 diabetes mellitus with diabetic polyneuropathy; N18.4 Chronic kidney disease, stage 4 (severe); E87.5 Hyperkalemia | CPT/HCPCS: 80048; 83036; 84443 ==

== ENCOUNTER 2022-08-11 02:28 | Observation (INO) | payer MEDICARE, SELFPAY ==
[2022-08-11] VITALS (41 sets, daily range): BP systolic 89–163; BP diastolic 52–101; PULSE 78–158; RESP 10–33; TEMP 36.7–38.1; O2SAT 84–100; BMI 25.8
--- NOTE | 2022-08-11 02:32 | XRR_ITS ---
PROCEDURE INFORMATION: Exam: XR Chest Exam date and time: 08/11/2022 3:38 AM Age: 67 years old Clinical indication: Other: Weakness TECHNIQUE: Imaging protocol: Radiologic exam of the chest. Views: 1 view. COMPARISON: CR XR chest 1V portable [id number] 05/21/2020 2:50 PM FINDINGS: Lungs: Unremarkable. No consolidation. Pleural spaces: Unremarkable. No pleural effusion. No pneumothorax. Heart/Mediastinum: Unremarkable. No cardiomegaly. Bones/joints: There is an S-shaped curvature of the axial skeleton. XR/XR chest 1V portable [id number] IMPRESSION: There are no acute chest findings.
[2022-08-11] MEDS: sodium chloride 0.9% 1,000 ML 999 ML IV (02:39)
--- NOTE | 2022-08-11 02:39 | ECG_ITS ---
[facility] Test Date: 2022-08-11 Pat Name: Ambika Nichols Department: Room: Gender: Female Geological Engineer: : 1955 Requested By: Josefina Fernandez Order Number: [id number] Dale MD: Mane Blake M.D. Measurements Intervals Welcome Rate: 99 P: -20 WI: 168 QRS: 9 QRSD: 86 T: 4 QT: 328 QTc: 421 Interpretive Statements SINUS RHYTHM Compared to ECG 05/22/2020 09:05:44 Atrial fibrillation no longer present ST (T wave) deviation no longer present Electronically Signed On 08-11-2022 11:07:27 RETAIL COVERAGE MERCHANDISER LEAD by Mane Blake M.D. [id number]
[2022-08-11 02:44] LABS: Basophils % 0.4 %; Eosinophils % 0.2 %; Hemoglobin 12.3 g/dL (11.5-15.3); Lymphocytes # 1.5 10^3/uL (0.8-4.8); Lymphocytes % 25.9 %; Mean Corpuscular HGB Conc 30.8 g/dL (30.0-36.0); Mean Corpuscular Hemoglobin 26.2 pg (28.0-34.0); Mean Corpuscular Volume 85.3 fl (81-99); Mean Platelet Volume 9.4 fL (7.4-10.4); Monocytes # 1.1 10^3/uL (0.2-0.9); Monocytes % 19.9 %; Neutrophils % 53.2 %; Nucleated Red Blood Cells % 0 %; Platelet Count 150 10^3/cmm (130-400); Red Blood Count 4.69 10^6/uL (4.1-5.3); Red Cell Distribution Width 14.5 % (12.1-15.1); White Blood Count 5.6 10^3/uL (4.0-10.0)
--- NOTE | 2022-08-11 02:45 | ED_ITS ---
HPI - Weakness General: Chief complaint: Weakness Stated complaint: WEAKNESS Time Seen by Provider: 08/11/22 02:29 Source: patient and EMS Mode of arrival: EMS Limitations: no limitations History of Present Illness: 67-year-old female states that over the last 3 to 4 days she has been having cough along with body aches nausea and diarrhea she states that she has been getting weaker she states that today she is felt very weak felt like she can pass out and having a hard time walking due to weakness. She denies any fever denies any worsening improving factors denies any pain anywhere. Associated symptoms: Reports chills and nausea; Denies chest pain, dysuria, easy bruising, headache(s) or vomiting Review of Systems Const: Reports: chills and body aches Eyes: Denies: blurry vision or eye discomfort ENMT: Denies: throat pain or dental pain Card: Denies: chest pain Resp: Reports: dyspnea and non-productive cough GI: Reports: nausea and diarrhea; Denies: abdominal pain or vomiting : Denies: dysuria Musc: Reports: muscle weakness Skin/Breast: Denies: rash Neuro: Denies: headache(s) Psych: Denies: depression Jayjay/Lymph: Denies: easy bruising All/Imm: Denies: urticaria PFSH ED PFSH: Medical History Acute kidney injury Anemia DJD (degenerative joint disease) DM type 2 (diabetes mellitus, type 2) Elevated troponin Esophageal thickening Hyperlipidemia Hypertension Hypothyroidism Menopausal symptoms Relates she takes antidepressant for this Pancreatic mass Pituitary tumor Possible urinary tract infection Surgical History H/O pituitary neoplasm Status post resection History of History of hysterectomy Family History Other CAD (coronary artery disease) Social History Smoking and tobacco status: never smoked Second hand smoke exposure: No Alcohol intake: never History of recent travel: No Female Reproductive History: Spontaneous abortions: No Physical Exam Const: COMMON NORMALS: patient oriented x3 HENMT: COMMON NORMALS: normocephalic and atraumatic HEAD & SCALP: normocephalic and atraumatic Eye: COMMON NORMALS: Equal, round and reactive pupils present and EOMs intact bilaterally PUPIL: Yes Equal, round and reactive pupils present Neck/C-Spine: COMMON NORMALS: full ROM and supple Chest: COMMONS NORMALS: normal inspection of the chest and normal palpation of entire chest wall Resp: COMMON NORMALS: normal respiratory effort, No retractions, No use of accessory muscles and clear to auscultation bilaterally AUSCULTATION: clear to auscultation bilaterally Cardio: COMMON NORMALS: regular rate, regular rhythm and No murmurs present (Cardio) RATE: regular rate RHYTHM: regular rhythm GI: COMMON NORMALS: Normal to inspection, nondistended, normoactive bowel sounds present, Soft to palpation, non-tender and no masses PALPATION: Yes Soft to palpation Extremity: COMMON NORMALS: normal to inspection and full ROM Neuro: COMMON NORMALS: patient oriented x3, moves all extremities and no focal motor deficits Psych: COMMON NORMALS: mental status grossly normal, Normal thought process present and cooperative THOUGHT PROCESS: Normal thought process present Skin: COMMON NORMALS: no rashes or lesions noted and no wounds GENERAL SKIN EXAM: no rashes or lesions noted Course Vital Signs: Vital signs: Vital Signs Temperature 98.7 F 08/11/22 02:30 Pulse Rate 110 H 08/11/22 03:59 Respiratory Rate 20 H 08/11/22 03:59 Blood Pressure 145/82 08/11/22 03:59 Pulse Oximetry 93 08/11/22 03:59 Oxygen Delivery Me thod 08/11/22 03:59 MDM - Weakness Medical Decision Making Patient presents here with generalized weakness along with vomiting she is fluid positive. Patient has a history of chronic kidney disease she does have an elevated troponin here which could be due to her kidney disease she does not have any chest pain or shortness we will trend her troponins. Patient also has slightly elevated creatinine likely due to dehydration spoke to hospitalist will admit at this time. Lab Data 08/11/22 02:35 08/11/22 02:35 Radiology Impressions Chest X-Ray 08/11/22 02:32 IMPRESSION: There are no acute chest findings. Laboratory Results WBC 5.6 10^3/uL (4.0-10.0) 08/11/22 02:35 RBC 4.69 10^6/uL (4.1-5.3) 08/11/22 02:35 Hgb 12.3 g/dL (11.5-15.3) 08/11/22 02:35 Hct 40.0 % (37.0-47.0) 08/11/22 02:35 MCV 85.3 fl (81-99) 08/11/22 02:35 MCH 26.2 pg (28.0-34.0) L 08/11/22 02:35 MCHC 30.8 g/dL (30.0-36.0) 08/11/22 02:35 RDW 14.5 % (12.1-15.1) 08/11/22 02:35 Plt Count 150 10^3/cmm (130-400) 08/11/22 02:35 MPV 9.4 fL (7.4-10.4) 08/11/22 02:35 Neut % (Auto) 53.2 % 08/11/22 02:35 Lymph % (Auto) 25.9 % 08/11/22 02:35 Latimer % (Auto) 19.9 % 08/11/22 02:35 Eos % (Auto) 0.2 % 08/11/22 02:35 Baso % (Auto) 0.4 % 08/11/22 02:35 Neut # (Auto) 3.00 10^3/uL (1.8-7.7) 08/11/22 02:35 Lymph # (Auto) 1.5 10^3/uL (0.8-4.8) 08/11/22 02:35 Latimer # (Auto) 1.1 10^3/uL (0.2-0.9) H 08/11/22 02:35 Eos # (Auto) 0.0 10^3/uL (0.0-0.8) 08/11/22 02:35 Baso # (Auto) 0.0 10^3/uL (0.0-0.1) 08/11/22 02:35 Nucleated RBC % (auto) 0 % 08/11/22 02:35 Nucleated RBCs # 0.0 /100WBC 08/11/22 02:35 PT 23.40 SECONDS (12.1-14.9) H 08/11/22 02:35 INR 2.04 (0.8-1.2) H 08/11/22 02:35 Sodium 133 mmol/L (136-145) L 08/11/22 02:35 Potassium 5.1 mmol/L (3.5-5.1) 08/11/22 02:35 Chloride 100 mmol/L (98-107) 08/11/22 02:35 Carbon Dioxide 19 mmol/L (22-29) L 08/11/22 02:35 Anion Gap 19.1 (5-19) H 08/11/22 02:35 BUN 47 mg/dL (8-23) H 08/11/22 02:35 Creatinine 1.5 mg/dL (0.5-0.9) H 08/11/22 02:35 GFR Calculation 34.4 mL/min (90-130) L 08/11/22 02:35 Glucose 402 mg/dL (65-115) H 08/11/22 02:35 Calculated Osmolality 305 mOsm/kg (285-295) H 08/11/22 02:35 Calcium 9.6 mg/dL (8.5-10.5) 08/11/22 02:35 Total Bilirubin 0.3 mg/dL (0.15-1.2) 08/11/22 02:35 AST 42 U/L (0-32) H 08/11/22 02:35 ALT 36 U/L (0-33) H 08/11/22 02:35 Alkaline Phosphatase 115 U/L (35-105) H 08/11/22 02:35 Troponin T Baseline 159 ng/L (0-10) H* 08/11/22 02:35 Total Protein 7.0 g/dL (6.6-8.7) 08/11/22 02:35 Albumin 3.6 g/dL (3.5-5.2) 08/11/22 02:35 Globulin 3.4 g/dL (1.3-4.6) 08/11/22 02:35 Lipase 27 U/L (13-60) 08/11/22 02:35 TSH 1.21 uIU/mL (0.27-4.20) 08/11/22 02:35 Influenza Type A Ag positive (Negative) 08/11/22 02:45 Influenza Type B Ag negative (Negative) 08/11/22 02:45 SARS-CoV-2 Ag (Rapid) negative (Negative) 08/11/22 02:45 EKG Data EKG 1: I personally reviewed and interpreted this EKG as follows: EKG interpretation date: 08/11/22 EKG interpretation time: 02:39 Interpretation: nsr hr [address] or t wave abnormalities qrs 86 qtc 384 Discharge Plan Discharge Patient Disposition: Admitted As Inpatient Admit Provider: Elsie Maloney Clinical Impression: Influenza A, A-fib, CKD (chronic kidney disease), Vomiting, Elevated troponin Condition: Stable Coding Level of Care Code ED Minor League Baseball Player for Chg Fwd Exam Comprehensive
[2022-08-11 02:54] LABS: INR 2.04 (0.8-1.2)
[2022-08-11 03:10] LABS: Influenza A by IFA positive (Negative); Influenza B by IFA negative (Negative)
[2022-08-11 03:11] LABS: Alanine Aminotransferase 36 U/L (0-33); Albumin Level 3.6 g/dL (3.5-5.2); Alkaline Phosphatase 115 U/L (35-105); Anion Gap 19.1 (5-19); Aspartate Amino Transferase 42 U/L (0-32); Blood Urea Nitrogen 47 mg/dL (8-23); Calcium 9.6 mg/dL (8.5-10.5); Carbon Dioxide 19 mmol/L (22-29); Chloride 100 mmol/L (98-107); Globulin 3.4 g/dL (1.3-4.6); Glomerular Filtration Rate 34.4 mL/min (90-130); Glucose 402 mg/dL (65-115); Lipase 27 U/L (13-60); Osmolality Calculated 305 mOsm/kg (285-295); Potassium 5.1 mmol/L (3.5-5.1); Sodium 133 mmol/L (136-145); Thyroid Stimulating Hormone 1.21 uIU/mL (0.27-4.20); Total Bilirubin 0.3 mg/dL (0.15-1.2)
[2022-08-11 03:12] LABS: Troponin(5th) Baseline 159 ng/L (0-10)
--- NOTE | 2022-08-11 03:26 | ECG_ITS ---
[facility] Test Date: 2022-08-11 Pat Name: Ambika Nichols Department: Room: Gender: Female Weave Room Supervisor: : 1955 Requested By: Josefina Fernandez Order Number: [id number] Dale MD: Mane Blake M.D. Measurements Intervals [place] Rate: 100 P: 21 ID: [id number] QRS: 43 QRSD: 89 T: 30 QT: 321 QTc: 414 Interpretive Statements SINUS TACHYCARDIA Compared to ECG 05/22/2020 09:05:44 Atrial fibrillation no longer present ST (T wave) deviation no longer present Electronically Signed On 08-11-2022 11:03:58 COMMUNITY BOARD MEMBER by Mane Blake M.D. [id number]
[2022-08-11 03:27] LABS: SARS Covid-2 Antigen negative (Negative)
[2022-08-11] MEDS: ondansetron 2 mg/ML SDV 2 mL 4 MG IVP (03:28)
[2022-08-11] MEDS: lidocaine 2% viscous 15 ML, aluminum-mag hydrox-simethicon 30 ML, sucralfate oral liq 1 GM PO (03:43)
[2022-08-11] MEDS: dilTIAZem 5 mg/mL SDV 5 mL 10 MG IVP (03:51)
[2022-08-11] MEDS: insulin regular-human 100 units/1 mL 10 UNIT IVP (03:56)
--- NOTE | 2022-08-11 04:26 | PM.HP ---
Providers/Chief Complaint Chief Complaint: WEAKNESS History of Present Illness Ambika Nichols is a 67 year old female with history of diabetes mellitus, insulin-dependent, hyperlipidemia, hypertension, hypothyroidism, degenerative joint disease, pituitary tumor, atrial fibrillation on anticoagulation with Xarelto, hypothyroidism, spinal stenosis presented to the hospital today with cough and body aches for the last few days. She says she feels weak and cannot get out of bed. Patient is chronically on Xarelto for atrial fibrillation. Patient's is at bedside and states that patient had an unwitnessed fall this morning. He is unsure if she hit her head or not. She is on Xarelto. He said that since this morning she has been having these periods where she almost passes out and has waxing waning responsiveness but has her eyes open. Therefore he decided to bring her to the hospital. For the last 3 days she has not taken her insulin or eating much. When she got to the ER today she did have an episode of vomiting. denies any chest pain but did report some heartburn for which she got a GI cocktail in the ER. Patient seen in room 105 as soon as she returned from the ER. As I walked in I heard panic had the patient was apparently at first in the bathroom and walking back to the bed when she became unresponsive but eyes were still open. Nurses immediately put her down in the chair and patient lost control of her bladder. She would not respond to her name. She was transferred to the bed and laid flat. Subsequently she vomited and was turned to her right side. Dark-colored food contents was the vomitus. No evidence of any gross blood. Within seconds patient started responding to her name and was able to tell me where she was and what was going on. She stated that she felt really weak but was not really sleepy. She knew she was in the hospital. Pupils equally reactive to light and responsive to light. EOMI. Symmetrical face. Cranial nerve II to XII intact. Lower extremities generally weak. Patient completely alert and oriented at this time. Denies any chest pain, shortness of breath at this time. Denies a cough at this time. Denies a history of seizures. ED course: On lisinopril 69, straight 18, pulse 73, temperature 98.7, saturating 90% on room air. Initial troponin 159, EKG showed sinus tachycardia but no ST elevations or ischemic changes.. Blood glucose 400. Creatinine 1.5. WBC normal. INR 2.0. CO2 19, anion gap 19.1. AST 42, ALT 36, alkaline phosphatase 150. Patient positive for influenza A. GI cocktail ordered. Zofran ordered. Medications/Allergies Home Medications Medication Instructions Recorded Confirmed Last Taken Type cholecalciferol (vitamin D3) 25 25 mcg PO DAILY 03/28/21 08/02/22 Unknown History mcg (1,000 unit) tablet desvenlafaxine succinate 50 mg 50 mg PO DAILY 90 days #90 tabs 04/03/22 08/02/22 Unknown Rx tablet,extended release 24 hr levothyroxine 100 mcg tablet 100 mcg PO DAILY 90 days #90 tabs 04/03/22 08/02/22 Unknown Rx lisinopril 40 mg tablet 40 mg PO DAILY 90 days #90 tabs 04/03/22 08/02/22 Unknown Rx metoprolol succinate 25 mg 25 mg PO DAILY 90 days #90 tabs 04/03/22 08/02/22 Unknown Rx tablet,extended release 24 hr simvastatin 40 mg tablet 40 mg PO DAILY 90 days #90 tabs 04/03/22 08/02/22 Unknown Rx amlodipine 10 mg tablet 10 mg PO DAILY 90 days #90 tabs 08/02/22 08/02/22 Unknown Rx celecoxib 200 mg capsule (Celebrex) 200 mg PO DAILY pain 90 days #90 08/02/22 08/02/22 Unknown Rx caps empagliflozin 25 mg tablet 25 mg PO DAILY 90 days #90 tabs 08/02/22 08/02/22 Unknown Rx (Jardiance) gabapentin 100 mg capsule 300 mg PO .at bedtime PRN pain 90 08/02/22 08/02/22 Unknown Rx days #90 caps insulin detemir U-100 100 unit/mL 55 unit (0.55 mL) SUBCUT BID 90 08/02/22 08/02/22 Unknown Rx (3 mL) subcutaneous pen (Levemir days #99 mL FlexTouch U-100 Insulin) pantoprazole 20 mg tablet,delayed 20 mg PO QAM 90 days #90 tabs 08/02/22 08/02/22 Unknown Rx release rivaroxaban 20 mg tablet (Xarelto) 20 mg PO DAILY 90 days #90 tabs 08/02/22 08/02/22 Unknown Rx tizanidine 2 mg tablet 2 mg PO BID PRN muscle spasticity 08/02/22 08/02/22 Unknown Rx #90 tabs tramadol 50 mg tablet 50 mg PO DAILY PRN pain 30 days 08/02/22 08/02/22 Unknown Rx #30 tabs Allergies Allergy/AdvReac Type Severity Reaction Status Date / Time No Known Allergies Allergy Verified 08/02/22 09:56 PFSH Acute PFSH: Medical History Acute kidney injury Anemia DJD (degenerative joint disease) DM type 2 (diabetes mellitus, type 2) Elevated troponin Esophageal thickening Hyperlipidemia Hypertension Hypothyroidism Menopausal symptoms Relates she takes antidepressant for this Pancreatic mass Pituitary tumor Possible urinary tract infection Surgical History H/O pituitary neoplasm Status post resection History of History of hysterectomy Family History Other CAD (coronary artery disease) Social History Smoking and tobacco status: never smoked Second hand smoke exposure: No Alcohol intake: never History of recent travel: No Female Reproductive History: Spontaneous abortions: No Vitals/I&O/Wt Last Vital Signs Temp 98.7 F 08/11/22 02:30 Pulse 100 08/11/22 03:20 Resp 20 H 08/11/22 03:20 BP 157/79 08/11/22 03:20 Pulse Ox 93 08/11/22 03:20 O2 Del Method 08/11/22 03:20 Weight last 48 hrs Weight 77.111 kg Physical Exam Narrative: General: Alert oriented x3, patient seen laying in bed appearing her well at this time. She did have a small episode of unresponsiveness. Please see details in HPI. HEENT: Normocephalic, atraumatic, EOMI, breathing comfortably on room air, saturating 93%. Cardio: Regular rate rhythm, normal S1-S2, Respiratory: Rhonchi right middle and base, right upper lobe clear to auscultation, left lung clear to auscultation completely no wheezes no rhonchi. GI: Abdomen soft, nontender, nondistended, bowel sounds + Extremities: no edema, no cyanosis, doughy skin texture Data 08/11/22 02:35 08/11/22 02:35 A&P Assessment and plan (1) Influenza A: (2) Vomiting: (3) Elevated troponin: (4) CKD (chronic kidney disease): (5) Diabetic neuropathy: Qualifiers: Diabetes mellitus complication detail: diabetic polyneuropathy Diabetes mellitus type: type 2 Qualified Code(s): E11.42 - Type 2 diabetes mellitus with diabetic polyneuropathy (6) Hypothyroidism: Qualifiers: Hypothyroidism type: acquired Qualified Code(s): E03.9 - Hypothyroidism, unspecified (7) DM type 2 (diabetes mellitus, type 2): Qualifiers: Diabetes mellitus complication status: without complication 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 insulin use: with marine oil terminal superintendent use Qualified Code(s): E11.9 - Type 2 diabetes mellitus without complications; Z79.4 - terminologist (current) use of insulin (8) Hypertension: Qualifiers: Hypertension type: essential hypertension Qualified Code(s): I10 - Essential (primary) hypertension (9) Hyperlipidemia: Qualifiers: Hyperlipidemia type: mixed hyperlipidemia Qualified Code(s): E78.2 - Mixed hyperlipidemia (10) A-fib: (11) Hyperglycemia: Plan #Influenza A positive #Fall, unwitnessed #Weakness #Diabetes mellitus type 2, insulin-dependent #Hyperglycemia due to missed insulin, rule out DKA? #Nausea/vomiting #Acute kidney injury, creatinine 1.5, history of CKD, baseline unknown #Elevated liver enzymes, alkaline phosphatase #Hypertension #Hyperlipidemia #Atrial fibrillation with RVR #Chronic anticoagulation #Hypothyroidism -Normal saline 100 cc/h after 2 L normal saline bolus ? Check serum ketones, check TSH ? Moderate intensity sliding scale insulin ? Lantus 30 units twice daily ? Hold Jardiance ? Continue amlodipine 10 mg daily, lisinopril 20 mg daily, metoprolol succinate 25 daily, continue Lantus 20 daily, simvastatin 40 -Increase Protonix to 40 mg daily ? Continue desvenlafaxine 50 daily -Patient did receive IV push of Cardizem in the ER. Heart rate controlled now. Expect heart rate to improve with IV fluids. If needed may need to titrate up metoprolol tartrate -Continue levothyroxine daily ? EKG showed sinus tachycardia at admission. Initial troponin 159. Troponin at previous admission 29. 2-hour troponin 6-hour troponin pending at this time. We will hold off on therapeutic Lovenox as patient is already on Xarelto. We will trend troponins at this time. Patient not complaining of chest pain. Did report heartburn. ? Order GI cocktail x1 and monitor response -Check hepatitis profile -Check CT head to rule out bleed ? Period of unresponsiveness most likely secondary to orthostatic hypotension, dehydration and weakness attributed to that as well however seizure cannot be ruled out. Will check prolactin and lactic acid at this time. We will continue to monitor patient. Consider EEG and neurological consultation if needed. I will not administer Keppra at this time and monitor patient. ? Continue IV fluids and reassess patient. Await results of head CT. ? Repeat blood sugar 342 at this time. She did receive 10 units of lispro in ER. ? Check orthostatic vitals ? Recheck EKG, troponin ? Physical therapy Occupational Therapy to assess in next 24 hours. ? Bedrest today. Full code DVT prophylaxis: Patient on Xarelto Diet: Clear liquid diet at this time. present at bedside and updated. Attestations Medical Necessity Statement*: Will cross greater than 2 midnight stay for work-up and management of weakness, unresponsiveness. 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 [employer] [facility] [employer] Fwd Diagnoses Influenza A J10.1 Vomiting R11.10 Elevated troponin R77.8 CKD (chronic kidney disease) N18.9 Diabetic neuropathy E11.42 Diabetes mellitus complication detail: diabetic polyneuropathy Diabetes mellitus type: type 2 Hypothyroidism E03.9 Hypothyroidism type: acquired DM type 2 (diabetes mellitus, type 2) E11.9; Z79.4 Diabetes mellitus complication status: without complication 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 insulin use: with marine oil terminal superintendent use Hypertension I10 Hypertension type: essential hypertension Hyperlipidemia E78.2 Hyperlipidemia type: mixed hyperlipidemia A-fib I48.91 Hyperglycemia R73.9
[2022-08-11] MEDS: sodium chloride 0.9% 1,000 ML 100 ML IV ×2 (04:39→15:45)
[2022-08-11 05:01] LABS: Estmated Average Glucose 252; Hemoglobin A1C 10.4 % (4.0-6.0)
[2022-08-11 05:03] LABS: Procalcitonin 0.16 ng/mL (0-0.5)
--- NOTE | 2022-08-11 05:03 | USCV_ITS ---
Ambika Nichols Age: 67 Gender: F : 1955 Exam Date: 08/11/2022 15:14 Ordering Phys: Elsie Maloney MD Technologist: Nicolas Hazel Exam Location: [place] Indication: elevated troponin BP: 122 / 80 HR: 77 Rhythm: Sinus Technical Quality: Adequate MEASUREMENTS (Male / Female) Normal Values 2D ECHO LV Diastolic Diameter PLAX 2.1 cm 4.2 - 5.9 / 3.9 - 5.3 cm LV Systolic Diameter PLAX 1.3 cm IVS Diastolic Thickness 1.0 cm 0.6 - 1.0 / 0.6 - 0.9 cm IVS Systolic Thickness 1.3 cm LVPW Diastolic Thickness 1.3 cm 0.6 - 1.0 / 0.6 - 0.9 cm LVPW Systolic Thickness 1.3 cm LVOT Diameter 2.0 cm LV Ejection Fraction 2D Teich 70.6 % LV Ejection Fraction MOD 2C 65.1 % LV Ejection Fraction 2C AL 65.4 % LA Diameter 3.2 cm LA Width 2.8 cm LA Height 5.5 cm RA Width 2.7 cm RA Height 5.0 cm Aorta at Sinotubular Diameter 2.2 cm IVC Diameter 1.6 cm M-MODE Aortic Annulus Diameter 3.1 cm LA Ao Ratio MM 1.1 MV E Point Septal Separation 0.5 cm DOPPLER AV Peak Velocity 117.0 cm/s LVOT Peak Velocity 112.0 cm/s AV Area Cont Eq vti 2.9 cm squared AV Area Cont Eq pk 3.0 cm squared MV Peak Velocity 116.0 cm/s MV Area PHT 3.0 cm squared Mitral E to A Ratio 0.7 MV E' Velocity 33.0 cm/s Mitral E to MV E' Ratio 13.8 Mitral E to LV E' Lateral Ratio 13.2 Mitral E to LV E' Septal Ratio 14.8 TR Peak Velocity 173.3 cm/s TR Peak Gradient 12.0 mmHg TR Mean Velocity 136.3 cm/s TR Mean Gradient 7.9 mmHg TR Velocity Time Integral 36.4 cm Right Atrial Pressure 3.0 mmHg Pulmonary Artery Systolic Pressu 15.0 mmHg PV Peak Velocity 111.0 cm/s RV Acceleration Time 0.1 s RV Ejection Time 0.2 s RV AcT/ET 0.4 FINDINGS Left Ventricle Normal left ventricular size and systolic function, EF 65 %. No regional wall motion abnormalities. Grade I/IV diastolic dysfunction (abnormal relaxation filling pattern), normal to mildly elevated filling pressures. Right Ventricle The right ventricle is normal in size and function. Right Atrium The right atrium is normal in size. Left Atrium Mildly increased left atrial size. Mitral Valve Mild mitral annular calcification. Trace mitral valve regurgitation. Aortic Valve No gross abnormalities noted Tricuspid Valve Trace to mild tricuspid valve regurgitation. Pulmonic Valve Pulmonic valve not well visualized. Pericardium Normal pericardium without effusion. Aorta Normal ascending aorta dimension. IVC Normal inferior vena cava. CONCLUSIONS Normal left ventricular size and systolic function, EF 65 %. No regional wall motion abnormalities. Grade I/IV diastolic dysfunction (abnormal relaxation filling pattern), normal to mildly elevated filling pressures. Mildly increased left atrial size. Mild mitral annular calcification. Trace mitral valve regurgitation. Trace to mild tricuspid valve regurgitation. There is no pericardial effusion. There are no intracardiac masses. Compared to the study from 05/23/2020, there may not be a significant change Dr Nataliya Shaw MD FAC (Electronically Signed) Final Date: 11 August 2022 20:30 S
[2022-08-11 05:09] LABS: Chol HDL Ratio 6.89 mg/dL (0.0-4.40); Cholesterol 131 mg/dL (0-200); HDL Cholesterol 19 mg/dL (60-100); LDL Cholesterol Calculated 44 mg/dL (50-129); LDL HDL Ratio 2.32 RATIO (0.00-3.22); Thyroid Stimulating Hormone 0.93 uIU/mL (0.27-4.20); Triglycerides 340 mg/dL (0-150)
[2022-08-11 05:17] LABS: Hepatitis A Antibody IgM Non-Reactive (Nonreactive); Hepatitis B Core AB, Total Non-Reactive (Nonreactive); Hepatitis B Surface AB 3.5 (11.5-1000); Hepatitis B Surface Antigen Non-Reactive (Nonreactive); Hepatitis C Virus Antibody Non-Reactive (Nonreactive)
--- NOTE | 2022-08-11 05:20 | CTR_ITS ---
PROCEDURE INFORMATION: Exam: CT Head Without Contrast Exam date and time: 08/11/2022 5:43 AM Age: 67 years old Clinical indication: Injury or trauma; Fall; Blunt trauma (contusions or hematomas); Additional info: Fall, on xarelto, R/O bleed/stroke TECHNIQUE: Imaging protocol: Computed tomography of the head without contrast. Radiation optimization: All CT scans at this facility use at least one of these dose optimization techniques: automated exposure control; mA and/or kV adjustment per patient size (includes targeted exams where dose is matched to clinical indication); or iterative reconstruction. COMPARISON: CT head wo con* [id number] 05/21/2020 8:47 PM RADIATION DOSE METRICS: Total DLP (mGy-cm): 1159.33 FINDINGS: Brain: There is mild diffuse cerebral atrophy. Patchy areas of hypoattenuation are seen in the deep white matter of the cerebral hemispheres bilaterally compatible with deep white matter microvascular disease. Cerebral ventricles: No ventriculomegaly. Paranasal sinuses: Visualized sinuses are unremarkable. No fluid levels. Mastoid air cells: Visualized mastoid air cells are well aerated. Bones/joints: Unremarkable. No acute fracture. Soft tissues: Unremarkable. CT/CT head wo con* [id number] IMPRESSION: There are no acute intracranial findings.
[2022-08-11 05:30] LABS: Troponin 5 2HR 132.2 ng/L (0-10); Troponin 5 2HR Delta -26.8 ABS# (0-10)
--- NOTE | 2022-08-11 05:30 | PC.NURSE ---
After patient arrived on the unit requested to walk to the bathroom. The patient was ambulating with 2 staff to when she became weak and her knees began to buckle. The patients brought over the commode and the patient was sat down. The patient became unresponsive and was lifted back into bed by staff. The patient was put back on tele, had a pulse and appeared to start to come around as nurse started to sternal rub her. had come into the room at this time. The patient started vomiting coffee ground emisis. Dr Maloney ordered to run another bolus 1L of NS, which was given and wants the patient to go for a head CT when vitals are stable.
[2022-08-11 06:41] LABS: Lactic Sepsis W/Reflex 1.3 mmol/L (0.5-2.2)
--- NOTE | 2022-08-11 07:00 | PC.NURSE ---
Messaged regarding patients heart rate from 120-150s still. Asked what she wants given for heart rate. said to give home dose of metoprolol early and heart rate should improve with that and IV fluids.
[2022-08-11 07:13] LABS: Troponin T (5th) Once 135 ng/L (0-10)
[2022-08-11] MEDS: metoprolol succinate ER (24 HR) 25 mg Tablet PO (07:30)
[2022-08-11 07:44] LABS: Glucose Point of Care 342 mg/dL (70-110)
[2022-08-11 07:52] LABS: Specific Gravity, Urine 1.015 (1.005-1.030); Urine Appearance Clear (CLEAR); Urine Color Straw (Yellow); pH Urine 5 (5-7)
[2022-08-11 07:53] LABS: Add Urine Microscopic? YES; Bilirubin Urine Neg (Negative); Blood Urine 2+ (Negative); Glucose Urine UA 4+ (Normal); Ketones Urine 1+ (Negative); Leukocyte Esterase Urine Negative (Negative); Nitrate Urine Negative (Negative); Protein Urine Trace (Negative); Urobilinogen Urine Neg (Negative)
[2022-08-11 08:03] LABS: Add Urine Culture? Yes; Bacteria Urine 3+ /hpf; RBC Urine 0-4 /hpf (0-2); Squamous Epithelial Cell Urine 0-4 /hpf (0-5); WBC Urine 0-4 /hpf (0-5)
--- NOTE | 2022-08-11 08:04 | P.MISC_ITS ---
Miscellaneous Note Note: Patient admitted by document management consultant this morning. Refer to H&P. Agree with assessment and plan. A fib with RVR, monitoring heart rate closely. May need to adjust rate control medications today.
[2022-08-11 08:16] LABS: Prolactin 19.98 ng/mL (4.8-23.3)
--- NOTE | 2022-08-11 08:33 | ECG_ITS ---
[facility] Test Date: 2022-08-11 Pat Name: Ambika Nichols Department: Room: 105 Gender: Female Factory Hand: : 1955 Requested By: Josefina Fernandez Order Number: [id number] Dale MD: Mane Blake M.D. Measurements Intervals [place] Rate: 132 P: 0 WI: 0 QRS: 17 QRSD: 84 T: 2 QT: 280 QTc: 416 Interpretive Statements ATRIAL FIBRILLATION WITH RAPID VENTRICULAR RESPONSE NONSPECIFIC ST & T-WAVE ABNORMALITY Compared to ECG 08/11/2022 03:26:36 T-wave abnormality now present Sinus tachycardia no longer present Electronically Signed On 08-11-2022 11:07:14 DIGITAL ASSOCIATE MEDIA DIRECTOR by Mane Blake M.D. [id number]
[2022-08-11] MEDS: desvenlafaxine 50 mg Tablet PO (08:55)
[2022-08-11] MEDS: atorvastatin 40 mg Tablet 20 MG PO (08:55)
[2022-08-11] MEDS: insulin lispro 100 unit/1 mL SUBCUT ×3 (08:56→18:08)
[2022-08-11] MEDS: rivaroxaban 10 mg Tablet 20 MG PO (08:56)
[2022-08-11] MEDS: pantoprazole DR 40 mg Tablet PO (08:56)
[2022-08-11] MEDS: levothyroxine 100 mcg Tablet PO (08:56)
[2022-08-11 09:25] LABS: Troponin 5 6HR 135.2 ng/L (0-10); Troponin 5 6HR Delta -23.8 ng/L (0-12)
[2022-08-11] MEDS: metoprolol tartrate 1 mg/1 mL SDV 5 mL 5 MG IVP (10:54)
[2022-08-11] MEDS: acetaminophen 325 mg Tablet 650 MG PO (11:15)
[2022-08-11 12:58] LABS: Glucose Point of Care 308 mg/dL (70-110)
[2022-08-11 17:22] LABS: Glucose Point of Care 159 mg/dL (70-110)
[2022-08-11] MEDS: alum-mag-hydroxide-sime 30 mL UDC PO (18:09)
[2022-08-11] MEDS: insulin glargine 100 units/1 mL 40 UNIT SUBCUT (20:09)
[2022-08-11 20:22] LABS: Glucose Point of Care 131 mg/dL (70-110)
[2022-08-11] MEDS: tizanidine 4 mg Tablet 2 MG PO (21:19)
[2022-08-11] MEDS: gabapentin 300 mg Capsule PO (21:19)
[2022-08-12] VITALS (9 sets, daily range): BP systolic 131–148; BP diastolic 66–79; PULSE 71–85; RESP 18–22; TEMP 36.3–37.2; O2SAT 97–100
[2022-08-12] MEDS: sodium chloride 0.9% 1,000 ML 100 ML IV (02:00)
[2022-08-12 04:19] LABS: Basophils % 0.2 %; Eosinophils % 0.2 %; Hematocrit 31.8 % (37.0-47.0); Hemoglobin 9.8 g/dL (11.5-15.3); Lymphocytes # 1.7 10^3/uL (0.8-4.8); Lymphocytes % 37.7 %; Mean Corpuscular HGB Conc 30.8 g/dL (30.0-36.0); Mean Corpuscular Hemoglobin 26.3 pg (28.0-34.0); Mean Corpuscular Volume 85.3 fl (81-99); Mean Platelet Volume 9.8 fL (7.4-10.4); Monocytes # 0.6 10^3/uL (0.2-0.9); Neutrophils # 2.15 10^3/uL (1.8-7.7); Neutrophils % 47.7 %; Nucleated Red Blood Cells % 0 %; Platelet Count 112 10^3/cmm (130-400); Red Blood Count 3.73 10^6/uL (4.1-5.3); Red Cell Distribution Width 14.5 % (12.1-15.1); White Blood Count 4.5 10^3/uL (4.0-10.0)
[2022-08-12 04:45] LABS: Alanine Aminotransferase 22 U/L (0-33); Albumin Level 2.9 g/dL (3.5-5.2); Alkaline Phosphatase 79 U/L (35-105); Anion Gap 12.1 (5-19); Aspartate Amino Transferase 29 U/L (0-32); Blood Urea Nitrogen 32 mg/dL (8-23); Calcium 8.4 mg/dL (8.5-10.5); Carbon Dioxide 19 mmol/L (22-29); Chloride 107 mmol/L (98-107); Globulin 2.6 g/dL (1.3-4.6); Glomerular Filtration Rate 44.5 mL/min (90-130); Glucose 155 mg/dL (65-115); Magnesium 1.9 mg/dL (1.7-2.3); Osmolality Calculated 288 mOsm/kg (285-295); Potassium 4.1 mmol/L (3.5-5.1); Sodium 134 mmol/L (136-145); Total Bilirubin 0.2 mg/dL (0.15-1.2); Total Protein 5.5 g/dL (6.6-8.7)
[2022-08-12 06:37] LABS: Glucose Point of Care 156 mg/dL (70-110)
--- NOTE | 2022-08-12 09:10 | PM.PN ---
Subjective Subjective: Patient endorses generalized malaise, fatigue, and weakness. Reports she has not really been out of bed since being admitted. Reports nausea and emesis are better however oral intake is still poor. Denies fevers, chills, chest pain or shortness of breath. Medications: Reviewed: Yes Vitals/I&O/Wt Last Vital Signs Temp 99 F 08/12/22 08:00 Pulse 78 08/12/22 08:00 Resp 22 H 08/12/22 08:00 BP 148/73 08/12/22 08:00 Pulse Ox 97 08/12/22 08:00 O2 Del Method 08/12/22 08:00 O2 Flow Rate 2 08/12/22 08:00 08/11/22 08/12/22 08/12/22 22:59 06:59 14:59 Intake Total 560 / 1800 1000 / 2800 Output Total 300 / 1400 650 / 2050 Balance 260 / 400 350 / 750 Weight last 48 hrs Weight 77.111 kg Physical Exam Narrative: General: Patient is awake. Appears fatigued. Head: Normocephalic. Atraumatic. EOMI. Neck: No JVD. Cardiovascular: Regular rate. No gallops. No murmurs. Lungs: Breath sounds are diminished at bases bilaterally. No use of accessory muscles, no crackles or wheezes. Skin: No jaundice. No rashes. Abdomen: Normal bowel sounds, abdomen soft and nontender. Genito Urinary: Genital exam not performed since complaints not related. Rectal: Rectal exam not performed since no symptoms indicated blood loss. Extremities: No cyanosis or clubbing. Musculoskeletal: No swollen or erythematous joints. Neurological: Moves all 4 extremities. No myoclonus. Urinary Catheter Management: Bajwa: Cath Placed During This Visit: yes Reason for Continuing Indwelling Catheter: Other Urinary Catheter Date of Insertion: 08/11/22 Urinary Catheter Time of Insertion: 08:32 Data 08/12/22 03:50 08/12/22 02:50 Micro: Microbiology 08/11/22 07:37 Urine Culture - Preliminary Urine,Clean Catch Gram Negative Rods A&P Assessment and plan (1) A-fib: Atrial fibrillation with rapid ventricular rate Heart rate has improved Continue metoprolol succinate 50 mg daily (previously 25 mg) Telemetry monitoring Continue Xarelto (2) UTI (urinary tract infection): Urine culture with GNR Start ceftriaxone Follow up urine culture (3) Influenza A: Droplet precautions Unfortunately Tamiflu is not currently available Supportive care (4) Elevated troponin: Consistent with acute myocardial injury Denies chest pain Secondary to atrial fibrillation with rapid ventricular rate Control heart rate (5) Debility: Debility and physical deconditioning secondary to infection Treat underlying infection Supportive care Consult physical therapy (6) Thrombocytopenia: Suspect dilutional Continue to monitor (7) Vomiting: Emesis has resolved Continue antiemetics as needed (8) Hypertension: Continue metoprolol as above Home lisinopril and amlodpine are on hold, restart as blood pressure tolerates Qualifiers: Hypertension type: essential hypertension Qualified Code(s): I10 - Essential (primary) hypertension (9) DM type 2 (diabetes mellitus, type 2): With hyperglycemia Continue Lantus 40 units BID (home detemir 55 units BID) SSI Avoid hypoglycemia Qualifiers: 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 insulin use: with supervisor rocket propellant plant use Diabetes mellitus complication status: without complication Qualified Code(s): E11.9 - Type 2 diabetes mellitus without complications; Z79.4 - special duty nurse (current) use of insulin (10) Hypothyroidism: TSH within normal limits Continue Synthroid Qualifiers: Hypothyroidism type: acquired Qualified Code(s): E03.9 - Hypothyroidism, unspecified (11) Diabetic neuropathy: Continue home gabapentin Qualifiers: Diabetes mellitus type: type 2 Diabetes mellitus complication detail: diabetic polyneuropathy Qualified Code(s): E11.42 - Type 2 diabetes mellitus with diabetic polyneuropathy (12) Hyperlipidemia: Continue statin Qualifiers: Hyperlipidemia type: mixed hyperlipidemia Qualified Code(s): E78.2 - Mixed hyperlipidemia (13) CKD (chronic kidney disease): Suspect stage 3B Renally dose medications as needed Discontinue IV fluids Plan DVT ppx: Xarelto Code status: Full Code Attestations Medical Necessity Statement*: Patient requires ongoing hospitalization for telemetry monitoring, titration of rate control medications, cultures, IV antiobiotics, antiemetics, serial labs, therapy evaluation, and supportive care with expected hospitalization to cross two midnights. Coding Level of Care Code Acute Principal Architect for [facility] Fwd Diagnoses A-fib I48.91 UTI (urinary tract infection) N39.0 Influenza A J10.1 Elevated troponin R77.8 Debility R53.81 Thrombocytopenia D69.6 Vomiting R11.10 Hypertension I10 Hypertension type: essential hypertension DM type 2 (diabetes mellitus, type 2) E11.9; Z79.4 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 insulin use: with assisted use Diabetes mellitus complication status: without complication Hypothyroidism E03.9 Hypothyroidism type: acquired Diabetic neuropathy E11.42 Diabetes mellitus type: type 2 Diabetes mellitus complication detail: diabetic polyneuropathy Hyperlipidemia E78.2 Hyperlipidemia type: mixed hyperlipidemia CKD (chronic kidney disease) N18.9
[2022-08-12] MEDS: cefTRIAXone 1,000 MG in sodium chloride 0.9% (plus) 50 ML 100 MG IV (09:37)
[2022-08-12] MEDS: pantoprazole DR 40 mg Tablet PO (09:38)
[2022-08-12] MEDS: desvenlafaxine 50 mg Tablet PO (09:38)
[2022-08-12] MEDS: atorvastatin 40 mg Tablet 20 MG PO (09:38)
[2022-08-12] MEDS: insulin glargine 100 units/1 mL 40 UNIT SUBCUT ×2 (09:38→17:34)
[2022-08-12] MEDS: rivaroxaban 10 mg Tablet 20 MG PO (09:38)
[2022-08-12] MEDS: insulin lispro 100 unit/1 mL SUBCUT ×4 (09:39→21:08)
[2022-08-12] MEDS: metoprolol succinate ER (24 HR) 50 mg Tablet PO (09:40)
[2022-08-12 12:07] LABS: Glucose Point of Care 182 mg/dL (70-110)
[2022-08-12 16:39] LABS: Glucose Point of Care 141 mg/dL (70-110)
[2022-08-12 21:05] LABS: Glucose Point of Care 147 mg/dL (70-110)
[2022-08-12] MEDS: gabapentin 300 mg Capsule PO (21:07)
[2022-08-12] MEDS: tizanidine 4 mg Tablet 2 MG PO (21:08)
[2022-08-13] VITALS: BP 124/59; PULSE 70; RESP 18; TEMP 36.8; O2SAT 98
[2022-08-13 04:00] VITALS: BP 146/70; PULSE 72; RESP 17; TEMP 36.9; O2SAT 100
[2022-08-13 04:49] LABS: Basophils % 0.3 %; Eosinophils % 1.1 %; Hematocrit 31.7 % (37.0-47.0); Hemoglobin 9.6 g/dL (11.5-15.3); Lymphocytes # 1.5 10^3/uL (0.8-4.8); Mean Corpuscular HGB Conc 30.3 g/dL (30.0-36.0); Mean Corpuscular Hemoglobin 26.2 pg (28.0-34.0); Mean Corpuscular Volume 86.6 fl (81-99); Mean Platelet Volume 9.5 fL (7.4-10.4); Monocytes # 0.5 10^3/uL (0.2-0.9); Monocytes % 15.1 %; Neutrophils # 1.44 10^3/uL (1.8-7.7); Neutrophils % 41.2 %; Nucleated Red Blood Cells % 0 %; Platelet Count 104 10^3/cmm (130-400); Red Blood Count 3.66 10^6/uL (4.1-5.3); Red Cell Distribution Width 14.5 % (12.1-15.1); White Blood Count 3.5 10^3/uL (4.0-10.0)
[2022-08-13 05:13] LABS: Albumin Level 2.9 g/dL (3.5-5.2); Anion Gap 13.8 (5-19); Blood Urea Nitrogen 25 mg/dL (8-23); Calcium 8.6 mg/dL (8.5-10.5); Carbon Dioxide 19 mmol/L (22-29); Chloride 106 mmol/L (98-107); Glucose 87 mg/dL (65-115); Magnesium 1.7 mg/dL (1.7-2.3); Phosphorus 2.6 mg/dL (2.5-4.5); Potassium 3.8 mmol/L (3.5-5.1); Sodium 135 mmol/L (136-145)
[2022-08-13 05:30] VITALS: PULSE 78
[2022-08-13 06:05] LABS: Glucose Point of Care 92 mg/dL (70-110)
[2022-08-13 07:48] VITALS: BP 142/77; PULSE 92; RESP 17; TEMP 36.9; O2SAT 100
[2022-08-13] MEDS: rivaroxaban 10 mg Tablet 20 MG PO (08:55)
[2022-08-13] MEDS: desvenlafaxine 50 mg Tablet PO (08:55)
[2022-08-13] MEDS: pantoprazole DR 40 mg Tablet PO (08:56)
[2022-08-13] MEDS: atorvastatin 40 mg Tablet 20 MG PO (08:56)
[2022-08-13] MEDS: metoprolol succinate ER (24 HR) 50 mg Tablet PO (08:56)
[2022-08-13] MEDS: levothyroxine 88 mcg Tablet PO (08:57)
[2022-08-13] MEDS: insulin glargine 100 units/1 mL 40 UNIT SUBCUT ×2 (08:57→09:01)
--- NOTE | 2022-08-13 10:10 | P.DS_ITS ---
Discharge Providers Date of Admission: 08/11/22 03:45 Date of Discharge: August 13, 2022 Attending Provider at Admission: Elsie Maloney MD Attending Provider at Discharge: Mike Ramos MD Diagnoses at Discharge Discharge Diagnosis (1) A-fib: Status: Acute (2) UTI (urinary tract infection): Status: Acute (3) Influenza A: Status: Acute (4) Elevated troponin: Status: Acute (5) Debility: Status: Acute (6) Thrombocytopenia: Status: Acute (7) Vomiting: Status: Acute (8) Hypertension: Status: Acute Qualifiers: Hypertension type: essential hypertension Qualified Code(s): I10 - Essential (primary) hypertension (9) DM type 2 (diabetes mellitus, type 2): Status: Acute Qualifiers: Diabetes mellitus complication status: without complication Diabetes mellitus 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 Qualified Code(s): E11.9 - Type 2 diabetes mellitus without complications; 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 (10) Hypothyroidism: Status: Acute Qualifiers: Hypothyroidism type: acquired Qualified Code(s): E03.9 - Hypothyroidism, unspecified (11) Diabetic neuropathy: Status: Acute Qualifiers: Diabetes mellitus complication detail: diabetic polyneuropathy Diabetes mellitus type: type 2 Qualified Code(s): E11.42 - Type 2 diabetes mellitus with diabetic polyneuropathy (12) Hyperlipidemia: Status: Acute Qualifiers: Hyperlipidemia type: mixed hyperlipidemia Qualified Code(s): E78.2 - Mixed hyperlipidemia (13) CKD (chronic kidney disease): Status: Acute Reason for Visit Reason for Visit: WEAKNESS Hospital Course Hospital Course Ambika Nichols is a 67 year old female with history of diabetes mellitus, insulin- dependent, hyperlipidemia, hypertension, hypothyroidism, degenerative joint disease, pituitary tumor, atrial fibrillation on anticoagulation with Xarelto, hypothyroidism, spinal stenosis presented to the hospital today with cough and body aches for the last few days, as well as 1 episode of syncope. Patient was admitted for the management of A. fib with RVR, NSTEMI type II, influenza, UTI . for A. fib with RVR dose of metoprolol has been increased to 50 milligrams p.o. daily initial home dose was 25 mg p.o. daily, Xarelto has been continued, heart rate was pretty well controlled at the time of discharge. For NSTEMI type II, possibly secondary to A. fib with RVR and influenza, denied any chest pain, 2D echo was done during the hospital stay: Normal left ventricular size and systolic function, EF 65 %. No regional wall motion abnormalities. Grade I/IV diastolic ?dysfunction (abnormal relaxation filling pattern), normal to mildly elevated filling pressures. Mildly increased left atrial size. Mild mitral annular calcification.Trace mitral valve regurgitation.Trace to mild tricuspid valve regurgitation. There is no pericardial effusion. Patient has a prior stress test done in 10/06, which was normal, patient has been asked to monitor for any chest pain shortness of breath, and in case of any such occurrence, she has been asked to come to ER for further evaluation. For now I will avoid doing any repeat stress test for any further cardiac work- up. She was not started on Tamiflu, as it was not available. She was kept on other conservative management. For UTI she was kept on ceftriaxone, has been discharged on p.o. levofloxacin. Urine culture is growing gram-negative rods, pending identification.Syncope was possibly secondary to A. fib with RVR, as well as positive orthostatic hypotension secondary to dehydration.She has been asked to monitor orthostatic vital sign, lisinopril has been kept on hold for another 3 days, amlodipine has been restarted. So far patient has responded well to above medical management and is being discharged in stable condition to home.She will continue to follow cardiology as well as primary care physician as outpatient. Physical Exam HENMT: COMMON NORMALS: normocephalic and atraumatic HEAD & SCALP: normocephalic and atraumatic Resp: COMMON NORMALS: normal respiratory effort, No retractions, No use of accessory muscles and clear to auscultation bilaterally EFFORT & INSPECTION: Yes symmetric chest movement AUSCULTATION: clear to auscultation bilaterally Cardio: COMMON NORMALS: regular rate, regular rhythm, S1 normal heart sound present, S2 normal heart sound present, No gallops present (Cardio), No murmurs present (Cardio), No rub (Cardio) and Peripheral pulses 2+ throughout RATE: regular rate RHYTHM: regular rhythm HEART SOUNDS: S1 normal heart sound present and S2 normal heart sound present PERIPHERAL PULSES: Peripheral pulses 2+ throughout GI: COMMON NORMALS: Normal to inspection, nondistended, normoactive bowel sounds present, Soft to palpation, non-tender, No hepatosplenomegaly present and no masses AUSCULTATION: Yes normoactive bowel sounds PALPATION: Yes Soft to palpation and Yes No hepatosplenomegaly present RECTAL EXAM: deferred Extremity: COMMON NORMALS: no clubbing, cyanosis or edema and no pedal edema Urinary Catheter Management: Bajwa: Cath Placed During This Visit: yes, but has since been removed by the nurse Reason for Continuing Indwelling Catheter: Decision to DC Catheter Urinary Catheter Date of Insertion: 08/11/22 Urinary Catheter Time of Insertion: 08:32 Date Urinary Catheter Removed: 08/12/22 Time Urinary Catheter Discontinued: 10:27 Discharge Data Studies Completed and Pending Completed Studies During Hospitalization Category Date Time Status CT head wo con* [id number] Stat Cat Scan 08/11/22 05:20 Completed XR chest 1V portable [id number] Stat Exams 08/11/22 02:32 Completed CV. echo complete* [id number] Urgent Ultrasound 08/11/22 05:03 Completed Pending at discharge Category Date Time Status CDIFF [Clostridioides Difficile PCR] Routine Lab 08/12/22 20:35 Uncollected Urine Culture Stat Lab 08/11/22 07:37 Results Radiology Impressions Chest X-Ray 08/11/22 02:32 IMPRESSION: There are no acute chest findings. Head CT 08/11/22 05:20 IMPRESSION: There are no acute intracranial findings. Laboratory Results WBC 3.5 10^3/uL (4.0-10.0) L 08/13/22 04:20 RBC 3.66 10^6/uL (4.1-5.3) L 08/13/22 04:20 Hgb 9.6 g/dL (11.5-15.3) L 08/13/22 04:20 Hct 31.7 % (37.0-47.0) L 08/13/22 04:20 MCV 86.6 fl (81-99) 08/13/22 04:20 MCH 26.2 pg (28.0-34.0) L 08/13/22 04:20 MCHC 30.3 g/dL (30.0-36.0) 08/13/22 04:20 RDW 14.5 % (12.1-15.1) 08/13/22 04:20 Plt Count 104 10^3/cmm (130-400) L 08/13/22 04:20 MPV 9.5 fL (7.4-10.4) 08/13/22 04:20 Neut % (Auto) 41.2 % 08/13/22 04:20 Lymph % (Auto) 42.0 % 08/13/22 04:20 [place] % (Auto) 15.1 % 08/13/22 04:20 Eos % (Auto) 1.1 % 08/13/22 04:20 Baso % (Auto) 0.3 % 08/13/22 04:20 Neut # (Auto) 1.44 10^3/uL (1.8-7.7) L 08/13/22 04:20 Lymph # (Auto) 1.5 10^3/uL (0.8-4.8) 08/13/22 04:20 [place] # (Auto) 0.5 10^3/uL (0.2-0.9) 08/13/22 04:20 Eos # (Auto) 0.0 10^3/uL (0.0-0.8) 08/13/22 04:20 Baso # (Auto) 0.0 10^3/uL (0.0-0.1) 08/13/22 04:20 Nucleated RBC % (auto) 0 % 08/13/22 04:20 Nucleated RBCs # 0.0 /100WBC 08/13/22 04:20 PT 23.40 SECONDS (12.1-14.9) H 08/11/22 02:35 INR 2.04 (0.8-1.2) H 08/11/22 02:35 Sodium 135 mmol/L (136-145) L 08/13/22 04:20 Potassium 3.8 mmol/L (3.5-5.1) 08/13/22 04:20 Chloride 106 mmol/L (98-107) 08/13/22 04:20 Carbon Dioxide 19 mmol/L (22-29) L 08/13/22 04:20 Anion Gap 13.8 (5-19) 08/13/22 04:20 BUN 25 mg/dL (8-23) H 08/13/22 04:20 Creatinine 1.0 mg/dL (0.5-0.9) H 08/13/22 04:20 GFR Calculation 55.0 mL/min (90-130) L 08/13/22 04:20 Glucose 87 mg/dL (65-115) 08/13/22 04:20 POC Glucose 92 mg/dL (70-110) 08/13/22 06:01 Estimat Average Glucose 252 08/11/22 02:35 Hemoglobin A1c 10.4 % (4.0-6.0) H 08/11/22 02:35 Calculated Osmolality 288 mOsm/kg (285-295) 08/12/22 02:50 Lactic Acid 1.3 mmol/L (0.5-2.2) 08/11/22 05:59 Calcium 8.6 mg/dL (8.5-10.5) 08/13/22 04:20 Phosphorus 2.6 mg/dL (2.5-4.5) 08/13/22 04:20 Magnesium 1.7 mg/dL (1.7-2.3) 08/13/22 04:20 Total Bilirubin 0.2 mg/dL (0.15-1.2) 08/12/22 02:50 AST 29 U/L (0-32) 08/12/22 02:50 ALT 22 U/L (0-33) 08/12/22 02:50 Alkaline Phosphatase 79 U/L (35-105) 08/12/22 02:50 Troponin T Gen 5 ng/L 135 ng/L (0-10) H* 08/11/22 05:59 Troponin T Baseline 159 ng/L (0-10) H* 08/11/22 02:35 Troponin T 120 Minute 132.2 ng/L (0-10) H 08/11/22 04:33 Delta Troponin T -26.8 ABS# (0-10) L 08/11/22 04:33 Troponin T Hi Sens 6Hr 135.2 ng/L (0-10) H 08/11/22 08:40 Troponin T Hi Sens 6Hr Delta -23.8 ng/L (0-12) L 08/11/22 08:40 Total Protein 5.5 g/dL (6.6-8.7) L 08/12/22 02:50 Albumin 2.9 g/dL (3.5-5.2) L 08/13/22 04:20 Globulin 2.6 g/dL (1.3-4.6) 08/12/22 02:50 Triglycerides 340 mg/dL (0-150) H 08/11/22 04:33 Cholesterol 131 mg/dL (0-200) 08/11/22 04:33 LDL Cholesterol, Calc 44 mg/dL (50-129) L 08/11/22 04:33 HDL Cholesterol 19 mg/dL (60-100) L 08/11/22 04:33 LDL/HDL Ratio 2.32 RATIO (0.00-3.22) 08/11/22 04:33 Cholesterol/HDL Ratio 6.89 mg/dL (0.0-4.40) H 08/11/22 04:33 Lipase 27 U/L (13-60) 08/11/22 02:35 Procalcitonin 0.16 ng/mL (0-0.5) 08/11/22 02:35 TSH 0.93 uIU/mL (0.27-4.20) 08/11/22 04:33 Prolactin 19.98 ng/mL (4.8-23.3) 08/11/22 05:59 Urine Color Straw (Yellow) 08/11/22 07:37 Urine Appearance Clear (CLEAR) 08/11/22 07:37 Urine pH 5 (5-7) 08/11/22 07:37 Ur Specific Virgin 1.015 (1.005-1.030) 08/11/22 07:37 Urine Protein Trace (Negative) 08/11/22 07:37 Urine Glucose (UA) 4+ (Normal) H 08/11/22 07:37 Urine Ketones 1+ (Negative) H 08/11/22 07:37 Urine Blood 2+ (Negative) H 08/11/22 07:37 Urine Nitrate Negative (Negative) 08/11/22 07:37 Urine Bilirubin Neg (Negative) 08/11/22 07:37 Urine Urobilinogen Neg mg/dL (Negative) 08/11/22 07:37 Ur Leukocyte Esterase Negative (Negative) 08/11/22 07:37 Urine RBC 0-4 /hpf (0-2) H 08/11/22 07:37 Urine WBC 0-4 /hpf (0-5) H 08/11/22 07:37 Ur Squamous Epith Cells 0-4 /hpf (0-5) H 08/11/22 07:37 Amorphous Sediment Not Reportable 08/11/22 07:37 Urine Bacteria 3+ /hpf (NONE) H 08/11/22 07:37 Hepatitis A IgM Ab Non-reactive (Nonreactive) 08/11/22 02:35 Hep Bs Antigen Non-reactive (Nonreactive) 08/11/22 02:35 Hep Bs Antibody 3.5 (11.5-1000) L 08/11/22 02:35 Hep B Core Total Ab Non-reactive (Nonreactive) 08/11/22 02:35 Hepatitis C Antibody Non-reactive (Nonreactive) 08/11/22 02:35 Influenza Type A Ag positive (Negative) 08/11/22 02:45 Influenza Type B Ag negative (Negative) 08/11/22 02:45 SARS-CoV-2 Ag (Rapid) negative (Negative) 08/11/22 02:45 Vitals Last Vital Signs Temp 98.5 F 08/13/22 07:48 Pulse 92 08/13/22 07:48 Resp 17 08/13/22 07:48 BP 142/77 08/13/22 07:48 Pulse Ox 100 08/13/22 07:48 O2 Del Method 08/13/22 07:48 O2 Flow Rate 2 08/13/22 04:00 Discharge Plan Discharge Patient Disposition: Home Condition: Stable Prescriptions: New metoprolol succinate 50 mg Tablet Extended Release 24 Hr 50 mg PO DAILY 30 Days Qty: 30 3RF levofloxacin 500 mg tablet 500 mg PO DAILY 3 Days Qty: 3 0RF Continued cholecalciferol (vitamin D3) 25 mcg (1,000 unit) tablet 25 mcg PO DAILY amlodipine 10 mg tablet 10 mg PO DAILY 90 Days Qty: 90 3RF celecoxib [Celebrex] 200 mg capsule 200 mg PO DAILY 90 Days Qty: 90 1RF Rx Instructions: WITH FOOD Jardiance 25 mg tablet 25 mg PO DAILY 90 Days Qty: 90 1RF Rx Instructions: 340B gabapentin 100 mg capsule 300 mg PO .at bedtime MDD 3 caps PRN (Reason: pain) 90 Days Qty: 90 1RF Rx Instructions: 1-[address] Olivier FlexTouch U-100 Insuln 100 unit/mL (3 mL) insulin pen 55 unit SUBCUT BID 90 Days Qty: 99 1RF Rx Instructions: 340B pantoprazole 20 mg tablet,delayed release (/EC) 20 mg PO QAM 90 Days Qty: 90 3RF Rx Instructions: 340B Xarelto 20 mg tablet 20 mg PO DAILY 90 Days Qty: 90 3RF Rx Instructions: must administer with evening meal 340B tizanidine 2 mg tablet 2 mg PO BID PRN (Reason: muscle spasticity) Qty: 90 1RF Rx Instructions: may cause sleepiness tramadol 50 mg tablet 50 mg PO DAILY PRN (Reason: pain) 30 Days Qty: 30 0RF desvenlafaxine succinate 50 mg tablet extended release 24 hr 50 mg PO DAILY 90 Days Qty: 90 3RF Rx Instructions: 340B simvastatin 40 mg tablet 40 mg PO DAILY 90 Days Qty: 90 3RF levothyroxine 88 mcg tablet 88 mcg PO DAILY Held lisinopril 40 mg tablet 40 mg PO DAILY 90 Days Qty: 90 3RF Hold Instructions: Resume on 08/15/22. Rx Instructions: 340B Discontinued metoprolol succinate 25 mg tablet extended release 24 hr 25 mg PO DAILY 90 Days Qty: 90 3RF Rx Instructions: 340B Discharge Orders: Discharge Order (Routine); Ordered 08/13/22 Ordered By: Mike Ramos Referrals: Brigida Carvajal MD [Physician] - 1 month Patient Instructions: Metoprolol (By mouth) (Lopressor, Toprol XL), Lev ofloxacin (By mouth), Hyperglycemia, Opioid Safety Discharge Attestations Time Spent in Discharge Care*: less than 30 min Status at Discharge: Cognitive status at discharge: cognitively intact , Behavioral status at discharge: cooperative , Quality Metrics Clinical Quality Measures [ No reported AMI, CVA or VTE this stay] Coding Level of Care Code Acute g [facility] note Diagnoses A-fib I48.91 UTI (urinary tract infection) N39.0 Influenza A J10.1 Elevated troponin R77.8 Debility R53.81 Thrombocytopenia D69.6 Vomiting R11.10 Hypertension I10 Hypertension type: essential hypertension DM type 2 (diabetes mellitus, type 2) E11.9; Z79.4 Diabetes mellitus complication status: without complication 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
[2022-08-13 11:02] LABS: Glucose Point of Care 159 mg/dL (70-110)
[2022-08-13 11:19] VITALS: PULSE 71; RESP 16; TEMP 36.8; O2SAT 91
[2022-08-13 11:23] VITALS: BP 125/62; PULSE 80; RESP 14; TEMP 36.9; O2SAT 100
--- NOTE | 2022-08-13 12:24 | PC.NURSE ---
Patient was d/c at 1039 via wheelchair to the ER entrance. Patient verbalized understanding of all instructions and follow up appointments.
== END 2022-08-13 12:23 | disposition home or self-care (01) ==
LOC: ER 03:51 → CSU 04:14
PROVIDERS: Internal Medicine; Admitting Provider Internal Medicine; Emergency Provider Emergency Medicine; Visit Provider Internal Medicine
DX: I48.91 Unspecified atrial fibrillation (principal); I21.A1 Myocardial infarction type 2; N39.0 Urinary tract infection, site not specified; J10.1 Influenza due to other identified influenza virus with other respiratory manifestations; R77.8 Other specified abnormalities of plasma proteins; R53.81 Other malaise; D69.6 Thrombocytopenia, unspecified; R11.10 Vomiting, unspecified; E11.42 Type 2 diabetes mellitus with diabetic polyneuropathy; Z82.49 Family history of ischemic heart disease and other diseases of the circulatory system; Z79.4 Long term (current) use of insulin; E03.9 Hypothyroidism, unspecified; E78.2 Mixed hyperlipidemia; E11.22 Type 2 diabetes mellitus with diabetic chronic kidney disease; I12.9 Hypertensive chronic kidney disease with stage 1 through stage 4 chronic kidney disease, or unspecified chronic kidney disease; N18.9 Chronic kidney disease, unspecified; M19.90 Unspecified osteoarthritis, unspecified site; Z79.01 Long term (current) use of anticoagulants
CPT/HCPCS: 36415; 36416; 51702; 70450; 71045; 80053; 80061; 80069; 81001; 82962; 83036; 83605; 83690; 83735; 84145; 84146; 84443; 84484; 85025; 85610; 86705; 86706; 86709; 86803; 87077; 87086; 87186; 87340; 87426; 87804; 93005; 93306; 96372; 96374; 96375; 97116; 97161; 99285; G0378; J0696; J1815; J2405; J3490; J7030

== ENCOUNTER → 2022-09-13 10:36 | Outpatient (BNVA) | payer MEDICARE, SELFPAY | PROVIDERS: PCP Family Medicine; Visit Provider Internal Medicine Cardiovascular Disease | DX: I48.91 Unspecified atrial fibrillation (principal); I12.9 Hypertensive chronic kidney disease with stage 1 through stage 4 chronic kidney disease, or unspecified chronic kidney disease; E11.22 Type 2 diabetes mellitus with diabetic chronic kidney disease; N18.9 Chronic kidney disease, unspecified; Z79.4 Long term (current) use of insulin; R06.00 Dyspnea, unspecified | CPT/HCPCS: 93005; 99214 ==

== ENCOUNTER → 2023-01-09 13:37 | Outpatient (BNVA) | payer MEDICARE, SELFPAY | PROVIDERS: PCP Family Medicine; Visit Provider Family Medicine | DX: N95.9 Unspecified menopausal and perimenopausal disorder (principal); E11.9 Type 2 diabetes mellitus without complications; Z79.4 Long term (current) use of insulin; E11.40 Type 2 diabetes mellitus with diabetic neuropathy, unspecified; E03.9 Hypothyroidism, unspecified; K22.70 Barrett's esophagus without dysplasia; E78.2 Mixed hyperlipidemia; M54.16 Radiculopathy, lumbar region; M51.36 Other intervertebral disc degeneration, lumbar region; D64.9 Anemia, unspecified; K29.70 Gastritis, unspecified, without bleeding; I10 Essential (primary) hypertension; K29.30 Chronic superficial gastritis without bleeding | CPT/HCPCS: 80053; 83036; 83540; 84443; 85025 ==

== ENCOUNTER → 2023-02-08 13:30 | Outpatient (BNVA) | payer MEDICARE, SELFPAY | PROVIDERS: PCP Family Medicine; Visit Provider Surgery | DX: K22.70 Barrett's esophagus without dysplasia (principal); K21.9 Gastro-esophageal reflux disease without esophagitis | CPT/HCPCS: 99203 ==

== ENCOUNTER 2023-03-27 06:10 | Day surgery (SDC) | payer MEDICARE, SELFPAY ==
[2023-03-25 09:23] VITALS: BMI 25.0
[2023-03-27 06:29] VITALS: BP 154/78; PULSE 70; RESP 18; TEMP 36.4; O2SAT 97
[2023-03-27] MEDS: sodium chloride 0.9% 1,000 ML 30 ML IV (06:48)
--- NOTE | 2023-03-27 06:54 | ANES.PREANE2 ---
Pre-Anesthetic Assessment Height/Weight: Height 1.7 m Weight 72.575 kg Temp Pulse Resp BP Pulse Ox O2 Del Method 97.6 F 70 18 154/78 97 Room Air 03/27/23 06:29 03/27/23 06:29 03/27/23 06:29 03/27/23 06:29 03/27/23 06:29 03/27/23 06:29 Operation Date: 03/27/23 07:30 Proposed Procedures p 16092 EGD W/BALLOON DIALATION D64.9 , K22.70,(Not Applicable) - Blayne Jones DO Familial anesthetic complications: none Was Beta Cristy taken within 24 hours: N/A Was Clonidine taken within 24 hours: N/A Last intake: Intake Last Liquid Date 03/26/23 Last Liquid Time 21:00 Last Solid Date 03/26/23 Last Solid Time 17:00 Social No alcohol and No tobacco Exam alert and oriented x 3 Airway Submandibular: within normal limits Cervical ROM: within normal limits Mallampati: Class I Dentition: full Comments: Comments: one broken in back on left side Pulmonary None reported CV/HEM Atrial Fibrillation and Hypertension None reported GI Gastroesophageal Reflux Disease Metabolic Diabetes Mellitus, Hyperlipidemia and Thyroid Disease [facility] [place] None reported Anesthetic Plan ASA status: 3 Anesthesia: Anesthesia Evaluation, General and MAC Medications/Allergies Home Medications Medication Instructions Recorded Confirmed Last Taken Type cholecalciferol (vitamin D3) 25 25 mcg PO DAILY 03/28/21 03/25/23 03/26/23 History mcg (1,000 unit) tablet lisinopril 40 mg tablet 40 mg PO DAILY 90 days #90 tabs 04/03/22 03/25/23 03/26/23 Rx amlodipine 10 mg tablet 10 mg PO DAILY 90 days #90 tabs 08/02/22 03/25/23 03/26/23 Rx rivaroxaban 20 mg tablet (Xarelto) 20 mg PO DAILY 90 days #90 tabs 08/02/22 03/25/23 03/24/23 Rx metoprolol succinate 50 mg 50 mg PO DAILY #90 tabs 09/13/22 03/25/23 03/26/23 Rx tablet,extended release 24 hr empagliflozin 25 mg tablet 25 mg PO DAILY 90 days #90 tabs 01/09/23 03/25/23 03/26/23 Rx (Jardiance) gabapentin 100 mg capsule 300 mg PO .at bedtime PRN pain 90 01/09/23 03/25/23 03/26/23 Rx days #180 caps levothyroxine 88 mcg tablet 88 mcg PO DAILY 90 days #90 tabs 01/09/23 03/25/23 03/26/23 Rx simvastatin 40 mg tablet 40 mg PO DAILY 90 days #90 tabs 01/09/23 03/25/23 03/26/23 Rx tizanidine 2 mg tablet 2 mg PO BID PRN muscle spasticity 01/09/23 03/25/23 03/26/23 Rx #90 tabs tramadol 50 mg tablet 50 mg PO DAILY PRN pain 30 days 01/09/23 03/25/23 Unknown Rx #30 tabs celecoxib 200 mg capsule (Celebrex) 200 mg PO DAILY 03/25/23 03/25/23 03/25/23 History desvenlafaxine succinate 50 mg 50 mg PO DAILY 03/25/23 03/25/23 03/26/23 History tablet,extended release 24 hr (Pristiq) insulin detemir U-100 100 unit/mL 50 unit SUBCUT BID 03/27/23 03/27/23 03/26/23 History (3 mL) subcutaneous pen (Levemir FlexTouch U-100 Insulin) Allergies Allergy/AdvReac Type Severity Reaction Status Date / Time No Known Allergies Allergy Verified 03/25/23 09:18 Current Medications Generic Name Dose Route Start Last Admin Trade Name Freq PRN Reason Stop Dose Admin Sodium Chloride 1,000 mls @ 30 mls/hr 03/27/23 06:15 03/27/23 06:48 Sodium Chloride 0.9% IV 03/28/23 06:14 30 mls/hr .Q24H LIZETT Administration PFSH Anesthesia Medical History A-fib Acute kidney injury Anemia CKD (chronic kidney disease) Debility Diabetic neuropathy DJD (degenerative joint disease) DM type 2 (diabetes mellitus, type 2) Elevated troponin Elevated troponin Esophageal thickening Hyperglycemia Hyperlipidemia Hypertension Hypothyroidism Influenza A Menopausal symptoms Relates she takes antidepressant for this Pancreatic mass Pituitary tumor Possible urinary tract infection Thrombocytopenia UTI (urinary tract infection) Vomiting Surgical History H/O pituitary neoplasm Status post resection History of History of hysterectomy Family History Other CAD (coronary artery disease) Social History Smoking and tobacco status: never smoked Second hand smoke exposure: No Alcohol intake: never Substance/Drug Use: never Female Reproductive History Spontaneous abortions: No Data Anesthesia Cardiac Studies: Echocardiogram 08/11/22 Echocardiogram Ultrasound 05/23/20 Sestamibi Stress Test (Cardiology) 09/30/20
[2023-03-27 06:55] LABS: Glucose Point of Care 334 mg/dL (70-110)
[2023-03-27] MEDS: insulin regular-human 100 units/1 mL 10 UNIT IVP (07:12)
[2023-03-27 07:34] LABS: Glucose Point of Care 245 mg/dL (70-110)
--- NOTE | 2023-03-27 07:36 | PM.HP ---
Providers/Chief Complaint Primary Care Provider: Marcia Flannery MD Chief Complaint: D64.9, K22.70 History of Present Illness Ambika Nichols is a 68 year old female here for EGD Medications/Allergies Home Medications Medication Instructions Recorded Confirmed Last Taken Type cholecalciferol (vitamin D3) 25 25 mcg PO DAILY 03/28/21 03/25/23 03/26/23 History mcg (1,000 unit) tablet lisinopril 40 mg tablet 40 mg PO DAILY 90 days #90 tabs 04/03/22 03/25/23 03/26/23 Rx amlodipine 10 mg tablet 10 mg PO DAILY 90 days #90 tabs 08/02/22 03/25/23 03/26/23 Rx rivaroxaban 20 mg tablet (Xarelto) 20 mg PO DAILY 90 days #90 tabs 08/02/22 03/25/23 03/24/23 Rx metoprolol succinate 50 mg 50 mg PO DAILY #90 tabs 09/13/22 03/25/23 03/26/23 Rx tablet,extended release 24 hr empagliflozin 25 mg tablet 25 mg PO DAILY 90 days #90 tabs 01/09/23 03/25/23 03/26/23 Rx (Jardiance) gabapentin 100 mg capsule 300 mg PO .at bedtime PRN pain 90 01/09/23 03/25/23 03/26/23 Rx days #180 caps levothyroxine 88 mcg tablet 88 mcg PO DAILY 90 days #90 tabs 01/09/23 03/25/23 03/26/23 Rx simvastatin 40 mg tablet 40 mg PO DAILY 90 days #90 tabs 01/09/23 03/25/23 03/26/23 Rx tizanidine 2 mg tablet 2 mg PO BID PRN muscle spasticity 01/09/23 03/25/23 03/26/23 Rx #90 tabs tramadol 50 mg tablet 50 mg PO DAILY PRN pain 30 days 01/09/23 03/25/23 Unknown Rx #30 tabs celecoxib 200 mg capsule (Celebrex) 200 mg PO DAILY 03/25/23 03/25/23 03/25/23 History desvenlafaxine succinate 50 mg 50 mg PO DAILY 03/25/23 03/25/23 03/26/23 History tablet,extended release 24 hr (Pristiq) insulin detemir U-100 100 unit/mL 50 unit SUBCUT BID 03/27/23 03/27/23 03/26/23 History (3 mL) subcutaneous pen (Levemir FlexTouch U-100 Insulin) Allergies Allergy/AdvReac Type Severity Reaction Status Date / Time No Known Allergies Allergy Verified 03/25/23 09:18 PFSH Acute PFSH: Medical History A-fib Acute kidney injury Anemia CKD (chronic kidney disease) Debility Diabetic neuropathy DJD (degenerative joint disease) DM type 2 (diabetes mellitus, type 2) Elevated troponin Elevated troponin Esophageal thickening Hyperglycemia Hyperlipidemia Hypertension Hypothyroidism Influenza A Menopausal symptoms Relates she takes antidepressant for this Pancreatic mass Pituitary tumor Possible urinary tract infection Thrombocytopenia UTI (urinary tract infection) Vomiting Surgical History H/O pituitary neoplasm Status post resection History of History of hysterectomy Family History Other CAD (coronary artery disease) Social History Smoking and tobacco status: never smoked Second hand smoke exposure: No Alcohol intake: never Substance/Drug Use: never Female Reproductive History: Spontaneous abortions: No Vitals/I&O/Wt Last Vital Signs Temp 97.6 F 03/27/23 06:29 Pulse 70 03/27/23 06:29 Resp 18 03/27/23 06:29 BP 154/78 03/27/23 06:29 Pulse Ox 97 03/27/23 06:29 O2 Del Method Room Air 03/27/23 06:29 Weight last 48 hrs Weight 160 lb A&P Assessment and plan (1) GERD (gastroesophageal reflux disease): (2) Barretts esophagus: Qualifiers: Ramesh's esophagus type: without dysplasia Qualified Code(s): K22.70 - Ramesh's esophagus without dysplasia Plan EGD Attestations Medical Necessity Statement*: Home Coding Level of Care Code Acute Code for Chg Fwd Diagnoses GERD (gastroesophageal reflux disease) K21.9 Barretts esophagus K22.70 Ramesh's esophagus type: without dysplasia
[2023-03-27 07:56] VITALS: BP 101/60; PULSE 70; RESP 18; TEMP 36.1; O2SAT 95
--- NOTE | 2023-03-27 08:05 | ANE.PACU2 ---
Inpatient post-anesthesia follow up: Airway intact: Yes Vital signs: Temperature 97.0 F Pulse Rate 73 Respiratory Rate 17 Blood Pressure 115/70 Pulse Oximetry 98 Oxygen Delivery Me thod Room Air Oxygen Flow Rate Fraction of Inspir ed Oxygen Hydration adequate: Yes Nausea and vomiting: Yes Pain level: 1 Mental status: Baseline
[2023-03-27 08:09] VITALS: BP 115/70; PULSE 73; RESP 17; TEMP 36.1; O2SAT 98
== END 2023-03-27 08:20 | disposition home or self-care (01) ==
PROVIDERS: PCP Family Medicine; Visit Provider Surgery
DX: K22.70 Barrett's esophagus without dysplasia (principal); K29.80 Duodenitis without bleeding; I48.91 Unspecified atrial fibrillation; K21.9 Gastro-esophageal reflux disease without esophagitis; E78.5 Hyperlipidemia, unspecified; E03.9 Hypothyroidism, unspecified; Z79.01 Long term (current) use of anticoagulants; Z79.4 Long term (current) use of insulin; N18.9 Chronic kidney disease, unspecified; I12.9 Hypertensive chronic kidney disease with stage 1 through stage 4 chronic kidney disease, or unspecified chronic kidney disease; E11.40 Type 2 diabetes mellitus with diabetic neuropathy, unspecified
CPT/HCPCS: 36416; 43239; 82962; 88305; J1815; J2704; J3010; J7030

== ENCOUNTER → 2023-04-30 15:59 | Outpatient (BNVA) | payer MEDICARE, SELFPAY | PROVIDERS: PCP Family Medicine; Visit Provider Surgery | DX: Z09 Encounter for follow-up examination after completed treatment for conditions other than malignant neoplasm (principal) | CPT/HCPCS: 99212 ==

== ENCOUNTER 2023-06-14 10:00 | Outpatient (CLI) | payer MEDICARE, SELFPAY ==
--- NOTE | 2023-06-14 11:03 | MM_ITS ---
WS: [id number] BILATERAL SCREENING DIGITAL TOMOSYNTHESIS MAMMOGRAM WITH CAD HISTORY: Z00.00 - Encounter for general adult medical examination ... COMPARISON: 10/05/2020 and 01/05/2019 Bilateral CC and MLO views with tomosynthesis and synthetic mammography submitted. Computer aided det ection analyzed. Breast composition: The breasts are almost entirely fatty. No suspicious masses, microcalcifications or architectural distortion. Breast arterial calcifications IMPRESSION: MM/[place] [id number] BI-RADS: 2-Benign FOLLOW UP: 1 Year Follow-up
== END 2023-06-14 10:01 | disposition home or self-care (01) ==
LOC: RAD 10:02
PROVIDERS: PCP Family Medicine; Visit Provider Family Medicine
DX: Z12.31 Encounter for screening mammogram for malignant neoplasm of breast (principal)
CPT/HCPCS: 77063; 77067

== ENCOUNTER → 2023-06-18 11:11 | Outpatient (BNVA) | payer MEDICARE, SELFPAY | PROVIDERS: PCP Family Medicine; Visit Provider Family Medicine | DX: E11.9 Type 2 diabetes mellitus without complications (principal); Z79.4 Long term (current) use of insulin; I10 Essential (primary) hypertension; E87.5 Hyperkalemia; N18.9 Chronic kidney disease, unspecified; E03.9 Hypothyroidism, unspecified; M51.36 Other intervertebral disc degeneration, lumbar region; I48.91 Unspecified atrial fibrillation; K05.6 Periodontal disease, unspecified; Z01.818 Encounter for other preprocedural examination; Z74.09 Other reduced mobility; Z78.9 Other specified health status | CPT/HCPCS: 80053; 80061; 83036 ==

== ENCOUNTER → 2023-09-19 14:08 | Outpatient (BNVA) | payer MEDICARE, SELFPAY | PROVIDERS: PCP Family Medicine; Referring Provider Family Medicine; Visit Provider Family Medicine | DX: E03.9 Hypothyroidism, unspecified (principal); I10 Essential (primary) hypertension; Z79.4 Long term (current) use of insulin; E11.9 Type 2 diabetes mellitus without complications | CPT/HCPCS: 80048; 83036; 84439; 84443; 84481 ==

== ENCOUNTER → 2024-04-23 08:52 | Outpatient (BNVA) | payer MEDICARE, SELFPAY | PROVIDERS: PCP Family Medicine; Visit Provider Family Medicine | DX: E11.9 Type 2 diabetes mellitus without complications (principal); E03.9 Hypothyroidism, unspecified; Z79.4 Long term (current) use of insulin | CPT/HCPCS: 80053; 80061; 83036; 84439; 84443; 84481 ==

== ENCOUNTER → 2024-10-05 13:36 | Outpatient (BNVA) | payer MEDICARE, SELFPAY | PROVIDERS: PCP Family Medicine; Referring Provider Family Medicine; Visit Provider Anesthesiology Pain Medicine | DX: M48.062 Spinal stenosis, lumbar region with neurogenic claudication (principal); M54.2 Cervicalgia; G89.29 Other chronic pain; M47.816 Spondylosis without myelopathy or radiculopathy, lumbar region; M54.16 Radiculopathy, lumbar region | CPT/HCPCS: 99214 ==

== ENCOUNTER 2024-10-15 12:13 | Emergency (ER) | payer MEDICARE, SELFPAY ==
[2024-10-15 12:16] VITALS: BP 128/61; PULSE 59; RESP 17; O2SAT 97; BMI 28.1
[2024-10-15 12:26] LABS: Glucose Point of Care 39 mg/dL (70-110)
--- NOTE | 2024-10-15 12:32 | W.ED.WEAKNES ---
HPI - Weakness General: Chief complaint: Weakness Stated complaint: hypoglycemia Time Seen by Provider: 10/15/24 12:16 Source: patient and EMS Mode of arrival: EMS Limitations: no limitations History of Present Illness: 69-year-old female who is a diabetic states that she has been sick over the last 3 to 4 days with fluids had decreased appetite. States she felt extremely weak this morning her found her on the floor and she could not get up off the floor she denies hitting her head she is found to be hypoglycemic with EMS blood sugar 36 they were not able to get an IV patient is answering my questions here but states she is feels extremely tired her blood sugar here is 39. Associated symptoms: Denies chest pain, chills, dysuria, fever(s), headache(s), nausea or vomiting Review of Systems Const: Reports: change in appetite, fatigue and malaise; Denies: fever(s), chills or body aches Eyes: Denies: blurry vision or eye discomfort ENMT: Denies: throat pain or dental pain Card: Denies: chest pain Resp: Denies: dyspnea GI: Denies: abdominal pain, nausea, vomiting or diarrhea : Denies: dysuria Musc: Denies: neck pain or back pain Skin/Breast: Denies: rash Neuro: Denies: headache(s) PFSH ED PFSH: Medical History Hyperlipidemia Thrombocytopenia Debility UTI (urinary tract infection) Hyperglycemia Elevated troponin Vomiting Influenza A CKD (chronic kidney disease) Diabetic neuropathy A-fib Possible urinary tract infection Esophageal thickening Pancreatic mass Elevated troponin Anemia Acute kidney injury Menopausal symptoms Relates she takes antidepressant for this DJD (degenerative joint disease) Hypothyroidism Pituitary tumor Hypertension DM type 2 (diabetes mellitus, type 2) Surgical History History of hysterectomy History of H/O pituitary neoplasm Status post resection Family History Other CAD (coronary artery disease) Social History Smoking and tobacco/nicotine status: never used tobacco/nicotine Second hand smoke exposure: No Alcohol intake: never Substance/Drug Use: never Female Reproductive History: Spontaneous abortions: No Physical Exam Const: COMMON NORMALS: patient oriented x3 HENMT: COMMON NORMALS: normocephalic and atraumatic HEAD & SCALP: normocephalic and atraumatic Eye: COMMON NORMALS: Equal, round and reactive pupils present and EOMs intact bilaterally PUPIL: Yes Equal, round and reactive pupils present Neck/C-Spine: COMMON NORMALS: full ROM and supple Chest: COMMONS NORMALS: normal inspection of the chest and normal palpation of entire chest wall Resp: COMMON NORMALS: normal respiratory effort, No retractions, No use of accessory muscles and clear to auscultation bilaterally AUSCULTATION: clear to auscultation bilaterally Cardio: COMMON NORMALS: regular rate, regular rhythm and No murmurs present (Cardio) RATE: regular rate RHYTHM: regular rhythm GI: COMMON NORMALS: Normal to inspection, nondistended, normoactive bowel sounds present, Soft to palpation, non-tender and no masses PALPATION: Yes Soft to palpation Extremity: COMMON NORMALS: normal to inspection and full ROM Neuro: COMMON NORMALS: patient oriented x3, moves all extremities and no focal motor deficits Psych: COMMON NORMALS: mental status grossly normal, Normal thought process present and cooperative THOUGHT PROCESS: Normal thought process present Skin: COMMON NORMALS: no rashes or lesions noted and no wounds GENERAL SKIN EXAM: no rashes or lesions noted Course Vital Signs: Vital signs: Vital Signs Pulse Rate 79 10/15/24 16:10 Respiratory Rate 16 10/15/24 15:43 Blood Pressure 150/86 10/15/24 16:10 Pulse Oximetry 100 10/15/24 16:10 Oxygen Delivery Me thod Room Air 10/15/24 15:43 MDM - Weakness Medical Decision Making Patient presents here with altered mental status at home likely from hypoglycemia her blood sugar here is stabilized she does have COVID along with UTI informed her she has to eat if she does not eat she has to decrease her insulin aware she will get hypoglycemic she feels much improved here she is stable for discharge we will prescribe her Keflex along with Zofran she is return if worsening she understands agrees to plan. Medical Records I reviewed the patient's medical records. Lab Data I reviewed the patient's lab results. 10/15/24 12:59 10/15/24 12:[address] 10/15/24 12:36 IMPRESSION: 1. No evidence of intracranial hemorrhage or mass effect. 2. LEFT greater than RIGHT maxillary sinusitis with small amount of fluid 3. Soft tissue mass in the RIGHT aspect of the sella with suprasellar extension appears similar compared to the prior studies. Reported history of pituitary tumor/surgery. This can be followed up with MRI. This measures slightly more prominent today in some dimensions. Laboratory Results WBC 8.66 10^3/uL (3.29-11.43) 10/15/24 12:59 RBC 4.55 10^6/uL (3.85-5.65) 10/15/24 12:59 Hgb 12.30 g/dL (11.27-16.99) 10/15/24 12:59 Hct 39.2 % (36-47) 10/15/24 12:59 MCV 86.2 fl (85-98) 10/15/24 12:59 MCH 27.0 pg (27-33) 10/15/24 12:59 MCHC 31.4 g/dL (30-55) 10/15/24 12:59 RDW 14.4 % (12.1-15.1) 10/15/24 12:59 Plt Count 159 10^3/cmm (157-399) 10/15/24 12:59 MPV 9.3 fL (7.4-10.4) 10/15/24 12:59 Neut % (Auto) 73.8 % 10/15/24 12:59 Lymph % (Auto) 13.4 % 10/15/24 12:59 Hendricks % (Auto) 10.9 % 10/15/24 12:59 Eos % (Auto) 0.9 % 10/15/24 12:59 Baso % (Auto) 0.5 % 10/15/24 12:59 Neut # (Auto) 6.40 10^3/uL (1.8-7.7) 10/15/24 12:59 Lymph # (Auto) 1.2 10^3/uL (0.8-4.8) 10/15/24 12:59 Hendricks # (Auto) 0.9 10^3/uL (0.2-0.9) 10/15/24 12:59 Eos # (Auto) 0.1 10^3/uL (0.0-0.8) 10/15/24 12:59 Baso # (Auto) 0.0 10^3/uL (0.0-0.1) 10/15/24 12:59 Nucleated RBC % (auto) 0 % 10/15/24 12:59 Nucleated RBCs # 0.0 /100WBC 10/15/24 12:59 Sodium 136 mmol/L (136-145) 10/15/24 12:59 Potassium 4.8 mmol/L (3.5-5.1) 10/15/24 12:59 Chloride 103 mmol/L (98-107) 10/15/24 12:59 Carbon Dioxide 23 mmol/L (22-29) 10/15/24 12:59 Anion Gap 14.8 (5-19) 10/15/24 12:59 BUN 55 mg/dL (8-23) H 10/15/24 12:59 Creatinine 1.5 mg/dL (0.5-0.9) H 10/15/24 12:59 GFR Calculation Not Reportable 10/15/24 12:59 Glucose 230 mg/dL (65-115) H 10/15/24 12:59 POC Glucose 209 mg/dL (70-110) H 10/15/24 15:11 Calculated Osmolality 304 mOsm/kg (285-295) H 10/15/24 12:59 Calcium 8.9 mg/dL (8.5-10.5) 10/15/24 12:59 Total Bilirubin 0.2 mg/dL (0.15-1.2) 10/15/24 12:59 AST 15 U/L (0-32) 10/15/24 12:59 ALT 14 U/L (0-33) 10/15/24 12:59 Alkaline Phosphatase 88 U/L (35-105) 10/15/24 12:59 Total Protein 6.4 g/dL (6.6-8.7) L 10/15/24 12:59 Albumin 3.3 g/dL (3.5-5.2) L 10/15/24 12:59 Globulin 3.1 g/dL (1.3-4.6) 10/15/24 12:59 TSH 2.01 uIU/mL (0.27-4.20) 10/15/24 12:59 Urine Color Yellow (Yellow) 10/15/24 15:22 Urine Appearance Cloudy (CLEAR) A 10/15/24 15:22 Urine pH 5.0 (5-7) 10/15/24 15:22 Ur Specific [place] 1.022 (1.005-1.030) 10/15/24 15:22 Urine Protein 2+ (Negative) A 10/15/24 15:22 Urine Glucose (UA) 2+ (Normal) H 10/15/24 15:22 Urine Ketones Negative (Negative) 10/15/24 15:22 Urine Blood 2+ (Negative) A 10/15/24 15:22 Urine Nitrate Negative (Negative) 10/15/24 15:22 Urine Bilirubin Negative (Negative) 10/15/24 15:22 Urine Urobilinogen 1.0 mg/dL (Negative) 10/15/24 15:22 Ur Leukocyte Esterase 2+ (Negative) A 10/15/24 15:22 Urine RBC 6-10 /hpf (0-2) 10/15/24 15:22 Urine WBC >100 /hpf (0-5) H 10/15/24 15:22 Ur Squamous Epith Cells 0-5 /hpf (0-5) 10/15/24 15:22 Amorphous Sediment 1+ /hpf 10/15/24 15:22 Urine Bacteria 1+ /hpf (NONE) H 10/15/24 15:22 Hyaline Casts 0.81 /lpf 10/15/24 15:22 Coronavirus (PCR) Positive (Negative) A 10/15/24 15:22 Influenza A (PCR) Negative (Negative) 10/15/24 15:22 Influenza Type B (PCR) Negative (Negative) 10/15/24 15:22 RSV (PCR) Negative (Negative) 10/15/24 15:22 All radiology interpretation(s) finalized by discharge Discharge Plan Discharge Patient Disposition: Home Clinical Impression: COVID-19, Hypoglycemia, Acute cystitis Condition: Stable Prescriptions: New cephalexin 500 mg capsule 500 mg PO TID 7 Days Qty: 21 0RF ondansetron 4 mg tablet,disintegrating 4 mg PO Q6H PRN (Reason: nausea and vomiting) Qty: 14 0RF No Action cholecalciferol (vitamin D3) 25 mcg (1,000 unit) tablet 25 mcg PO DAILY tramadol 50 mg tablet 50 mg PO QID PRN (Reason: pain) 7 Days Qty: 28 0RF amlodipine 10 mg tablet 10 mg PO DAILY 90 Days Qty: 90 2RF desvenlafaxine succinate [Pristiq] 50 mg tablet extended release 24 hr 50 mg PO DAILY 90 Days Qty: 90 2RF Rx Instructions: 340B Jardiance 25 mg tablet 25 mg PO DAILY 90 Days Qty: 90 2RF Rx Instructions: 340B insulin degludec 100 unit/mL (3 mL) insulin pen 55 unit SUBCUT BID 90 Days Qty: 99 3RF lisinopril 40 mg tablet 40 mg PO DAILY 90 Days Qty: 90 2RF Hold Instructions: Resume on 08/15/22. Rx Instructions: 340B metoprolol succinate 50 mg tablet extended release 24 hr 50 mg PO DAILY 90 Days Qty: 90 2RF Xarelto 20 mg tablet 20 mg PO DAILY 90 Days Qty: 90 2RF Hold Instructions: Resume on 03/29/23. Rx Instructions: must administer with evening meal 340B tizanidine 2 mg tablet 2 mg PO BID PRN (Reason: muscle spasticity) Qty: 90 5RF Rx Instructions: may cause sleepiness pravastatin 40 mg tablet 40 mg PO DAILY 90 Days Qty: 90 3RF levothyroxine 88 mcg tablet 88 mcg PO DAILY 90 Days Qty: 90 2RF hydrocodone-acetaminophen 7.5-325 mg tablet 1 tab PO Q6H PRN (Reason: Pain) celecoxib [Celebrex] 200 mg capsule 200 mg PO DAILY gabapentin 100 mg capsule 300 mg PO BEDTIME MDD 3 caps PRN (Reason: pain) hydrochlorothiazide 12.5 mg tablet 12.5 mg PO QAM Discharge Orders: Discharge ED (Routine); Ordered 10/15/24 Ordered By: Josefina Fernandez Referrals: Marcia Flannery MD [Primary Care Provider] - 4-7 days Discharge Diet: Advance as tolerated Discharge Activity: Resume usual activity Patient Instructions: Hypoglycemia, Urinary Tract Infection in Women (ED), COVID-19 (Coronavirus Disease 2019) (ED) Coding Level of Care Code ED Ict [employer] for Chg Fwd Related Data Home Medications Medication Instructions Recorded Confirmed cholecalciferol (vitamin D3) 25 25 mcg PO DAILY 03/28/21 10/15/24 mcg (1,000 unit) tablet celecoxib 200 mg capsule (Celebrex) 200 mg PO DAILY pain 10/15/24 10/15/24 gabapentin 100 mg capsule 300 mg PO BEDTIME PRN pain 10/15/24 10/15/24 hydrochlorothiazide 12.5 mg tablet 12.5 mg PO QAM 10/15/24 10/15/24 hydrocodone 7.5 mg-acetaminophen 1 tab PO Q6H PRN Pain 10/15/24 10/15/24 325 mg tablet Previous Rx's Medication Instructions Recorded amlodipine 10 mg tablet 10 mg PO DAILY 90 days #90 tabs 04/23/24 desvenlafaxine succinate 50 mg 50 mg PO DAILY 90 days #90 tabs 04/23/24 tablet,extended release 24 hr (Pristiq) empagliflozin 25 mg tablet 25 mg PO DAILY 90 days #90 tabs 04/23/24 (Jardiance) insulin degludec 100 unit/mL (3 55 unit (0.55 mL) SUBCUT BID 90 04/23/24 mL) subcutaneous pen days #99 mL lisinopril 40 mg tablet 40 mg PO DAILY 90 days #90 tabs 04/23/24 metoprolol succinate 50 mg 50 mg PO DAILY 90 days #90 tabs 04/23/24 tablet,extended release 24 hr pravastatin 40 mg tablet 40 mg PO DAILY 90 days #90 tabs 04/23/24 rivaroxaban 20 mg tablet (Xarelto) 20 mg PO DAILY 90 days #90 tabs 04/23/24 tizanidine 2 mg tablet 2 mg PO BID PRN muscle spasticity 04/23/24 #90 tabs tramadol 50 mg tablet 50 mg PO QID PRN pain 7 days #28 05/26/24 tabs levothyroxine 88 mcg tablet 88 mcg PO DAILY 90 days #90 tabs 09/03/24 cephalexin 500 mg capsule 500 mg PO TID 7 days #21 caps 10/15/24 ondansetron 4 mg disintegrating 4 mg PO Q6H PRN nausea and 10/15/24 tablet vomiting #14 tabs Allergies Allergy/AdvReac Type Severity Reaction Status Date / Time No Known Allergies Allergy Verified 10/05/24 14:04
--- NOTE | 2024-10-15 12:36 | CT_ITS ---
WS: [id number] CT HEAD TECHNIQUE: Noncontrast CT of the head obtained from the skullbase to the vertex. CLINICAL INFORMATION: fall COMPARISON: CT 2021 DLP: 1267.[address] scans at [facility] use at least one of these dose optimization techniques: automated e xposure control; mA and/or kV adjustment per patient size (includes targeted exams where dose is matc hed to clinical indication); or iterative reconstruction. FINDINGS: No evidence of intracranial hemorrhage or mass effect. Ventricular system and basal cisterns are kent nt. Mild small vessel changes with mild parenchymal volume loss. No extra-axial fluid collections. No evidence of mass or mass effect. Normal pedro-white differentiation. Vascular calcification. Trace fluid in the maxillary sinuses compatible with sinusitis. No mucosal thickening in the ethmoid air cells. Mastoid air cells are well aerated. RIGHT pituitary mass with suprasellar extension measuring approximately 11 mm craniocaudal. Impingeme nt on the inferior third ventricle and RIGHT optic chiasm. This could be better evaluated by MRI. Rep orted history of pituitary tumor. Soft tissue thickening extends in the RIGHT cavernous sinus and ten torium. CT/CT head wo con* [id number] IMPRESSION: 1. No evidence of intracranial hemorrhage or mass effect. 2. LEFT greater than RIGHT maxillary sinusitis with small amount of fluid 3. Soft tissue mass in the RIGHT aspect of the sella with suprasellar extensio n appears similar compared to the prior studies. Reported history of pituitary tumor/surgery. This can be followed up with MRI. This measures slightly more pr ominent today in some dimensions.
[2024-10-15] MEDS: dextrose 10% 250 ML 1000 ML IV (12:43)
[2024-10-15 13:05] LABS: Basophils % 0.5 %; Eosinophils # 0.1 10^3/uL (0.0-0.8); Eosinophils % 0.9 %; Hematocrit 39.2 % (36-47); Lymphocytes # 1.2 10^3/uL (0.8-4.8); Lymphocytes % 13.4 %; Mean Corpuscular HGB Conc 31.4 g/dL (30-55); Mean Corpuscular Volume 86.2 fl (85-98); Mean Platelet Volume 9.3 fL (7.4-10.4); Monocytes # 0.9 10^3/uL (0.2-0.9); Monocytes % 10.9 %; Neutrophils % 73.8 %; Nucleated Red Blood Cells % 0 %; Platelet Count 159 10^3/cmm (157-399); Red Blood Count 4.55 10^6/uL (3.85-5.65); Red Cell Distribution Width 14.4 % (12.1-15.1); White Blood Count 8.66 10^3/uL (3.29-11.43)
[2024-10-15] MEDS: ondansetron 2 mg/ML SDV 2 mL 4 MG IVP (13:08)
[2024-10-15 13:11] LABS: Glucose Point of Care 176 mg/dL (70-110)
--- NOTE | 2024-10-15 13:25 | PC.PHAR ---
pt just finished amoxil 500mg and a medrol dose pack from 09/29/24
[2024-10-15 13:34] LABS: Alanine Aminotransferase 14 U/L (0-33); Albumin Level 3.3 g/dL (3.5-5.2); Alkaline Phosphatase 88 U/L (35-105); Anion Gap 14.8 (5-19); Aspartate Amino Transferase 15 U/L (0-32); Blood Urea Nitrogen 55 mg/dL (8-23); Calcium 8.9 mg/dL (8.5-10.5); Carbon Dioxide 23 mmol/L (22-29); Chloride 103 mmol/L (98-107); Creatinine Clr Calc Pharmacy 37.8069; Globulin 3.1 g/dL (1.3-4.6); Glucose 230 mg/dL (65-115); Osmolality Calculated 304 mOsm/kg (285-295); Potassium 4.8 mmol/L (3.5-5.1); Sodium 136 mmol/L (136-145); Thyroid Stimulating Hormone 2.01 uIU/mL (0.27-4.20); Total Bilirubin 0.2 mg/dL (0.15-1.2); Total Protein 6.4 g/dL (6.6-8.7)
[2024-10-15 14:01] VITALS: BP 155/68; PULSE 76; RESP 17; O2SAT 97
[2024-10-15 14:16] LABS: Glucose Point of Care 166 mg/dL (70-110)
[2024-10-15 14:30] VITALS: BP 147/78; PULSE 74; O2SAT 98
[2024-10-15 15:15] LABS: Glucose Point of Care 209 mg/dL (70-110)
[2024-10-15] MEDS: sodium chloride 0.9% 1,000 ML 999 ML IV (15:37)
[2024-10-15 15:43] VITALS: BP 154/88; PULSE 72; RESP 16; O2SAT 98
[2024-10-15 15:44] LABS: Bilirubin Urine Negative (Negative); Blood Urine 2+ (Negative); Glucose Urine UA 2+ (Normal); Ketones Urine Negative (Negative); Leukocyte Esterase Urine 2+ (Negative); Nitrate Urine Negative (Negative); Protein Urine 2+ (Negative); Specific Gravity, Urine 1.022 (1.005-1.030); Urine Appearance Cloudy (CLEAR); Urine Color Yellow (Yellow)
[2024-10-15 15:46] LABS: Add Urine Microscopic? YES; Bacteria Urine 1+ /hpf; Hyaline Casts Urine 0.81 /lpf; Squamous Epithelial Cell Urine 0-5 /hpf (0-5); WBC Urine >100 /hpf (0-5)
[2024-10-15 16:10] VITALS: BP 150/86; PULSE 79; O2SAT 100
[2024-10-15 16:19] LABS: Influenza A NEGATIVE (Negative); Influenza B NEGATIVE (Negative); Respiratory Syncytial Virus Ce NEGATIVE (Negative)
[2024-10-15 16:24] LABS: Covid PCR Positive (Negative)
[2024-10-15 16:26] LABS: UA Slide Review UA Slide Review Perf
[2024-10-15 16:28] LABS: Add Urine Culture? Yes; Amorphous Sediment Urine 1+ /hpf
[2024-10-15] MEDS: cefTRIAXone 1,000 mg SDV 1000 MG IVP (16:50)
[2024-10-15 17:11] VITALS: BP 149/95; PULSE 93; RESP 18; O2SAT 97
== END 2024-10-15 17:13 | disposition home or self-care (01) ==
PROVIDERS: Emergency Provider Emergency Medicine; PCP Family Medicine
DX: U07.1 COVID-19 (principal); E11.649 Type 2 diabetes mellitus with hypoglycemia without coma; E11.40 Type 2 diabetes mellitus with diabetic neuropathy, unspecified; E11.22 Type 2 diabetes mellitus with diabetic chronic kidney disease; I12.9 Hypertensive chronic kidney disease with stage 1 through stage 4 chronic kidney disease, or unspecified chronic kidney disease; N18.9 Chronic kidney disease, unspecified; Z11.52 Encounter for screening for COVID-19; N30.00 Acute cystitis without hematuria; Z79.4 Long term (current) use of insulin
CPT/HCPCS: 36416; 70450; 80053; 81001; 82962; 84443; 85025; 87637; 96374; 96375; 99285; J0696; J2405; J7030; J7799

== ENCOUNTER 2024-10-20 09:41 | Emergency (ER) | payer MEDICARE, SELFPAY ==
[2024-10-20 09:43] VITALS: BP 145/68; PULSE 77; RESP 16; TEMP 36.8; O2SAT 94; BMI 25.0
--- NOTE | 2024-10-20 09:48 | XRR_ITS ---
PROCEDURE INFORMATION: Exam: XR Abdomen Exam date and time: 10/20/2024 9:53 AM Age: 69 years old Clinical indication: Abdominal pain; Generalized; Additional info: Abd pain TECHNIQUE: Imaging protocol: Radiologic exam of the abdomen. Views: Frontal supine view of the abdomen. 1 View. COMPARISON: CT abdomen pelvis w con* [id number] 05/21/2020 5:28 PM FINDINGS: Lungs: Visualized lung bases are clear. Gastrointestinal tract: Unremarklable. No bowel dilation. No significant stool burden. Bones/joints: Unremarkable. XR/XR abdomen 1V* [id number] IMPRESSION: No acute findings.
--- NOTE | 2024-10-20 09:57 | ED_ITS ---
HPI - Nausea/Vomiting/Diarrhea 2 General: Chief complaint: Nausea/Vomiting/Diarrhea Stated complaint: N/V Time Seen by Provider: 10/20/24 09:44 History of Present Illness: 69-year-old female with a history of hyp erlipidemia, thrombocytopenia, chronic kidney disease, diabetes and diabetic neuropathy, atrial fibrillation, chronic anticoagulation on Xarelto, and hypertension who presents to the emergency room with constipation, nausea and vomiting along with weakness. Increased somnolence. No focal abdominal pain at this time. She was seen in the emergency room a few days ago and treated for a urinary tract infection. She saw her primary care yesterday secondary to issues with hypoglycemia who decreased her insulin at that time. No known fevers. No altered mental status. No chest pain. No shortness of breath. Related Data Home Medications ?Medication ?Instructions ?Recorded ?Confirmed cholecalciferol (vitamin D3) 25 25 mcg PO DAILY 10/20/24 mcg (1,000 unit) tablet celecoxib 200 mg capsule (Celebrex) 200 mg PO DAILY pa in 10/15/24 10/20/24 gabapentin 100 mg capsule 300 mg PO BEDTIME PRN pain 0 10/15/24 10/20/24 hydrochlorothiazide 12.5 mg tablet 12.5 mg PO QAM 09/1810/20/24 Previous Rx's ?Medication ?Instructions ?Recorded amlodipine 10 mg tablet 10 mg PO DAILY 90 days #90 t abs 04/23/24 desvenlafaxine succinate 50 mg 50 mg PO DAILY 90 days #90 tabs 04/23/24 tablet,extended release 24 hr (Pristiq) empagliflozin 25 mg tablet 25 mg PO DAILY 90 days #90 tabs 04/23/24 (Jardiance) insulin degludec 100 unit/mL (3 55 unit (0.55 mL) SUBC UT BID 90 04/23/24 mL) subcutaneous pen days #99 mL lisinopril 40 mg tablet 40 mg PO DAILY 90 days #90 t abs 04/23/24 metoprolol succinate 50 mg 50 mg PO DAILY 90 days #90 tabs 04/23/24 tablet,extended release 24 hr pravastatin 40 mg tablet 40 mg PO DAILY 90 days #90 t abs 04/23/24 rivaroxaban 20 mg tablet (Xarelto) 20 mg PO DAILY 90 d ays #90 tabs 04/23/24 tizanidine 2 mg tablet 2 mg PO BID PRN muscle spast icity 04/23/24 #90 tabs tramadol 50 mg tablet 50 mg PO QID PRN pain 7 days #28 05/26/24 tabs levothyroxine 88 mcg tablet 88 mcg PO DAILY 90 days #9 0 tabs 09/03/24 cephalexin 500 mg capsule 500 mg PO TID 7 days #21 cap s 10/15/24 ondansetron 4 mg disintegrating 4 mg PO Q6H PRN nausea and 10/15/24 tablet vomiting #14 tabs blood-glucose meter,continuous #1 ea 10/19/24 (Dexcom G6 Digital Content Producer) blood-glucose sensor (Dexcom G6 #3 ea 10/19/24 Sensor device) blood-glucose transmitter (Dexcom #1 ea 10/19/24 G6 Transmitter device) insulin aspart 5 unit SUBCUT TIDWMEAL #15 m L 10/19/24 (niacinamide)(U-100) 100 unit/mL(3 mL) subcutaneous pen (Fiasp FlexTouch U-100 Insulin) ondansetron 8 mg disintegrating 8 mg PO Q6H #14 tabs 0 10/20/24 tablet Allergies Allergy/AdvReac Type Severity Reaction Status Date / Time No Known Allergies Allergy Verified 10/19/24 11:29 Review of Systems 2 Narrative: Constitutional symptoms: Negative except as documented in HPI. Skin symptoms: Negative except as documented in HPI. Eye symptoms: Negative except as documented in HPI. ENMT symptoms: Negative except as documented in HPI. Respiratory symptoms: Negative except as documented in HPI. Cardiovascular symptoms: Negative except as documented in HPI. Gastrointestinal symptoms: Negative except as documented in HPI. Genitourinary symptoms: Negative except as documented in HPI. Musculoskeletal symptoms: Negative except as documented in HPI. Neurologic symptoms: Negative except as documented in HPI. Psychiatric symptoms: Negative except as documented in HPI. Endocrine symptoms: Negative except as documented in HPI. PFSH ED 2 PFSH: Medical History Hyperlipidemia Thrombocytopenia Debility UTI (urinary tract infection) Hyperglycemia Elevated troponin Vomiting Influenza A CKD (chronic kidney disease) Diabetic neuropathy A-fib Possible urinary tract infection Esophageal thickening Pancreatic mass Elevated troponin Anemia Acute kidney injury Menopausal symptoms Relates she takes antidepressant for this DJD (degenerative joint disease) Hypothyroidism Pituitary tumor Hypertension DM type 2 (diabetes mellitus, type 2) Surgical History History of hysterectomy History of H/O pituitary neoplasm Status post resection Family History Other CAD (coronary artery disease) Social History Smoking and tobacco/nicotine status: never used tobacco/nicotine Second hand smoke exposure: No Alcohol intake: never Substance/Drug Use: never Female Reproductive History: Spontaneous abortions: No Physical Exam 2 Narrative: EXAM NARRATIVE: General: Alert, no acute distress. Skin: Warm, dry. Head: Normocephalic, atraumatic. Neck: Supple, trachea midline. Eye: Extraocular movements are intact. Ears, nose, mouth and throat: Tacky oral mucosa Cardiovascular: Regular, Normal peripheral perfusion. Respiratory: Lungs are clear to auscultation, respirations are non-labored, breath sounds are equal, Symmetrical chest wall expansion. Gastrointestinal: Soft, Nontender, Non distended Musculoskeletal: Normal ROM, no deformity. Neurological: Alert and oriented, No focal neurological deficit observed. Psychiatric: Cooperative, appropriate mood & affect. Course 2 Vital Signs: Vital signs: Vital Signs Temperature 98.2 F 10/20/24 09:43 Pulse Rate 81 10/20/24 12:57 Respiratory Rate 16 10/20/24 09:43 Blood Pressure 145/68 10/20/24 09:43 Pulse Oximetry 99 10/20/24 12:57 Oxygen Delivery Me thod Room Air 10/20/24 09:43 MDM - Nausea/Vomiting/Diarrhea Medical Decision Making Medical decision making: Differential diagnosis for this patient with nausea and vomiting including but not limited to and based on the above HPI, review of systems and physical exam: Urinary tract infection. Appendicitis. Cholecystis. colitis. small bowel obstruction. crohn's flare. pancreatitis. gastritis. peptic ulcer. cyclic vomiting. Viral illness. Influenza. COVID. Orders placed to evaluate differential diagnosis based on the above differential, HPI and physical exam Lab Review: Laboratory results were reviewed and interpreted by myself the emergency room physician. Mild leukocytosis. No anemia. BUN and creatinine are elevated at 45 and 1.2. But this is actually at or below her baseline. Urine appears improved from previous. She is now positive for COVID. I reviewed the patient's medical record. Reexamination: Patient remained stable. No increased work of breathing. No altered mental status. No focal motor deficits. Assessment and plan: COVID- Dehydration Vomiting ?IV normal saline bolus and IV fluids - Discharged home - Discussed findings and plan with patient. Answered any questions. - All laboratory values were reviewed and interpreted personally by myself, the ER physician - All imaging was reviewed and interpreted personally by myself, the ER physician. - Evaluation and treatment of this problem were appropriate in the emergency setting Lab Data 10/20/24 10:48 10/20/24 09:55 Radiology Impressions Abdomen X-Ray 10/20/24 09:48 IMPRESSION: No acute findings. Laboratory Results WBC 14.64 10^3/uL (3.29-11.43) H 10/20/24 10:48 RBC 4.36 10^6/uL (3.85-5.65) 10/20/24 10:48 Hgb 11.60 g/dL (11.27-16.99) 10/20/24 10:48 Hct 37.3 % (36-47) 10/20/24 10:48 MCV 85.6 fl (85-98) 10/20/24 10:48 MCH 26.6 pg (27-33) L 10/20/24 10:48 MCHC 31.1 g/dL (30-55) 10/20/24 10:48 RDW 14.5 % (12.1-15.1) 10/20/24 10:48 Plt Count 160 10^3/cmm (157-399) 10/20/24 10:48 MPV 8.9 fL (7.4-10.4) 10/20/24 10:48 Neut % (Auto) 83.4 % 10/20/24 10:48 Lymph % (Auto) 9.4 % 10/20/24 10:48 [place] % (Auto) 6.3 % 10/20/24 10:48 Eos % (Auto) 0.2 % 10/20/24 10:48 Baso % (Auto) 0.2 % 10/20/24 10:48 Neut # (Auto) 12.20 10^3/uL (1.8-7.7) H 10/20/24 10:48 Lymph # (Auto) 1.4 10^3/uL (0.8-4.8) 10/20/24 10:48 [place] # (Auto) 0.9 10^3/uL (0.2-0.9) 10/20/24 10:48 Eos # (Auto) 0.0 10^3/uL (0.0-0.8) 10/20/24 10:48 Baso # (Auto) 0.0 10^3/uL (0.0-0.1) 10/20/24 10:48 Nucleated RBC % (auto) 0 % 10/20/24 10:48 Nucleated RBCs # 0.0 /100WBC 10/20/24 10:48 Sodium 137 mmol/L (136-145) 10/20/24 09:55 Potassium 4.7 mmol/L (3.5-5.1) 10/20/24 09:55 Chloride 108 mmol/L (98-107) H 10/20/24 09:55 Carbon Dioxide 18 mmol/L (22-29) L 10/20/24 09:55 Anion Gap 15.7 (5-19) 10/20/24 09:55 BUN 45 mg/dL (8-23) H 10/20/24 09:55 Creatinine 1.2 mg/dL (0.5-0.9) H 10/20/24 09:55 GFR Calculation Not Reportable 10/20/24 09:55 Glucose 104 mg/dL (65-115) 10/20/24 09:55 Calculated Osmolality 296 mOsm/kg (285-295) H 10/20/24 09:55 Lactic Acid 0.6 mmol/L (0.5-2.2) 10/20/24 10:48 Calcium 8.4 mg/dL (8.5-10.5) L 10/20/24 09:55 Total Bilirubin 0.3 mg/dL (0.15-1.2) 10/20/24 09:55 AST 21 U/L (0-32) 10/20/24 09:55 ALT 16 U/L (0-33) 10/20/24 09:55 Alkaline Phosphatase 92 U/L (35-105) 10/20/24 09:55 Total Protein 6.3 g/dL (6.6-8.7) L 10/20/24 09:55 Albumin 3.2 g/dL (3.5-5.2) L 10/20/24 09:55 Globulin 3.1 g/dL (1.3-4.6) 10/20/24 09:55 Lipase 12 U/L (13-60) L 10/20/24 09:55 Urine Color Green (Yellow) 10/20/24 10:22 Urine Appearance Clear (CLEAR) 10/20/24 10:22 Urine pH 5.5 (5-7) 10/20/24 10:22 Ur Specific [place] 1.018 (1.005-1.030) 10/20/24 10:22 Urine Protein 2+ (Negative) A 10/20/24 10:22 Urine Glucose (UA) 3+ (Normal) H 10/20/24 10:22 Urine Ketones Negative (Negative) 10/20/24 10:22 Urine Blood Negative (Negative) 10/20/24 10:22 Urine Nitrate Negative (Negative) 10/20/24 10:22 Urine Bilirubin Negative (Negative) 10/20/24 10:22 Urine Urobilinogen 0.2 mg/dL (Negative) 10/20/24 10:22 Ur Leukocyte Esterase Negative (Negative) 10/20/24 10:22 Urine RBC 0-2 /hpf (0-2) 10/20/24 10:22 Urine WBC 6-10 /hpf (0-5) 10/20/24 10:22 Ur Squamous Epith Cells 0-5 /hpf (0-5) 10/20/24 10:22 Amorphous Sediment Not Reportable 10/20/24 10:22 Urine Bacteria None seen /hpf (NONE) 10/20/24 10:22 Hyaline Casts 1.65 /lpf 10/20/24 10:22 Coronavirus (PCR) Positive (Negative) A 10/20/24 10:22 Influenza A (PCR) Negative (Negative) 10/20/24 10:22 Influenza Type B (PCR) Negative (Negative) 10/20/24 10:22 RSV (PCR) Negative (Negative) 10/20/24 10:22 No radiology studies performed this visit Discharge Plan Discharge Patient Disposition: Home Clinical Impression: COVID-19, Dehydration Condition: Stable Prescriptions: New ondansetron 8 mg tablet,disintegrating 8 mg PO Q6H Qty: 14 0RF Rx Instructions: Take 1/2-1 tab every 6 hours as needed for nausea and vomiting No Action cholecalciferol (vitamin D3) 25 mcg (1,000 unit) tablet 25 mcg PO DAILY tramadol 50 mg tablet 50 mg PO QID PRN (Reason: pain) 7 Days Qty: 28 0RF Fiasp FlexTouch U-100 Insulin 100 unit/mL (3 mL) insulin pen 5 unit SUBCUT TIDWMEAL Qty: 15 0RF Rx Instructions: [place] [place] Dexcom G6 S[place] Device See Rx Instructions .ROUTE .MEDSUPPLY Qty: 3 3RF Rx Instructions: [place] directed [place] [place] Dexcom G6 Digital Content Producer Misc See Rx Instructions .ROUTE .MEDSUPPLY Qty: 1 0RF Rx Instructions: As directed [place] [place] Dexcom G6 Transmitter Device See Rx Instructions .ROUTE .MEDSUPPLY Qty: 1 0RF Rx Instructions: As directed amlodipine 10 mg tablet 10 mg PO DAILY 90 Days Qty: 90 2RF desvenlafaxine succinate [Pristiq] 50 mg tablet extended release 24 hr 50 mg PO DAILY 90 Days Qty: 90 2RF Rx Instructions: 340B Jardiance 25 mg tablet 25 mg PO DAILY 90 Days Qty: 90 2RF Rx Instructions: 340B insulin degludec 100 unit/mL (3 mL) insulin pen 55 unit SUBCUT BID 90 Days Qty: 99 3RF lisinopril 40 mg tablet 40 mg PO DAILY 90 Days Qty: 90 2RF Rx Instructions: 340B metoprolol succinate 50 mg tablet extended release 24 hr 50 mg PO DAILY 90 Days Qty: 90 2RF Xarelto 20 mg tablet 20 mg PO DAILY 90 Days Qty: 90 2RF Rx Instructions: must administer with evening meal 340B tizanidine 2 mg tablet 2 mg PO BID PRN (Reason: muscle spasticity) Qty: 90 5RF Rx Instructions: may cause sleepiness pravastatin 40 mg tablet 40 mg PO DAILY 90 Days Qty: 90 3RF levothyroxine 88 mcg tablet 88 mcg PO DAILY 90 Days Qty: 90 2RF celecoxib [Celebrex] 200 mg capsule 200 mg PO DAILY gabapentin 100 mg capsule 300 mg PO BEDTIME MDD 3 caps PRN (Reason: pain) hydrochlorothiazide 12.5 mg tablet 12.5 mg PO QAM cephalexin 500 mg capsule 500 mg PO TID 7 Days Qty: 21 0RF ondansetron 4 mg tablet,disintegrating 4 mg PO Q6H PRN (Reason: nausea and vomiting) Qty: 14 0RF Discharge Orders: Discharge ED (Routine); Ordered 10/20/24 Ordered By: Dalila Driscoll Referrals: Marcia Flannery MD [Primary Care Provider] - Discharge Diet: As Directed Discharge Activity: Increase activity as tolerated Patient Instructions: How to Recover from COVID-19 at Home (ED), Opioid Safety, Pain Management Activity Restrictions/Additional Instructions: Thank you for choosing [facility] for your healthcare needs today. Please realize this is an emergency room and that we are providing you with a medical screening exam and this may not be complete and all inclusive of all the testing and or work up that you may need to determine your ailment or severity of your illness. You have been screened and evaluated and felt safe for discharge. Health conditions do change or evolve sometimes and as such it is important that you follow up with your Primary Doctor to be re checked, 3-5 days is a general good time frame for follow up. You are always welcome to return to the ED for re assessment if your symptoms are worsening or you have new concerns Print Language: Maltese Coding Level of Care Code ED Ultrasonic Tester for Chintan Persaud
[2024-10-20] MEDS: sodium chloride 0.9% 1,000 ML 999 ML IV (10:05)
[2024-10-20] MEDS: ondansetron 2 mg/ML SDV 2 mL 8 MG IVP (10:05)
[2024-10-20 10:52] LABS: Bilirubin Urine Negative (Negative); Blood Urine Negative (Negative); Glucose Urine UA 3+ (Normal); Ketones Urine Negative (Negative); Leukocyte Esterase Urine Negative (Negative); Nitrate Urine Negative (Negative); Protein Urine 2+ (Negative); Specific Gravity, Urine 1.018 (1.005-1.030); Urine Appearance Clear (CLEAR); Urobilinogen Urine 0.2 mg/dL (Negative); pH Urine 5.5 (5-7)
[2024-10-20 10:53] LABS: Basophils % 0.2 %; Eosinophils % 0.2 %; Hematocrit 37.3 % (36-47); Lymphocytes # 1.4 10^3/uL (0.8-4.8); Lymphocytes % 9.4 %; Mean Corpuscular HGB Conc 31.1 g/dL (30-55); Mean Corpuscular Hemoglobin 26.6 pg (27-33); Mean Corpuscular Volume 85.6 fl (85-98); Mean Platelet Volume 8.9 fL (7.4-10.4); Monocytes # 0.9 10^3/uL (0.2-0.9); Monocytes % 6.3 %; Neutrophils % 83.4 %; Nucleated Red Blood Cells % 0 %; Platelet Count 160 10^3/cmm (157-399); Red Blood Count 4.36 10^6/uL (3.85-5.65); Red Cell Distribution Width 14.5 % (12.1-15.1); White Blood Count 14.64 10^3/uL (3.29-11.43)
[2024-10-20 11:02] LABS: Bacteria Urine None Seen /hpf; Hyaline Casts Urine 1.65 /lpf; RBC Urine 0-2 /hpf (0-2); Squamous Epithelial Cell Urine 0-5 /hpf (0-5)
[2024-10-20 11:02] LABS: Alanine Aminotransferase 16 U/L (0-33); Albumin Level 3.2 g/dL (3.5-5.2); Alkaline Phosphatase 92 U/L (35-105); Aspartate Amino Transferase 21 U/L (0-32); Blood Urea Nitrogen 45 mg/dL (8-23); Calcium 8.4 mg/dL (8.5-10.5); Carbon Dioxide 18 mmol/L (22-29); Chloride 108 mmol/L (98-107); Creatinine Clr Calc Pharmacy 44.7953; Globulin 3.1 g/dL (1.3-4.6); Glucose 104 mg/dL (65-115); Lipase 12 U/L (13-60); Osmolality Calculated 296 mOsm/kg (285-295); Sodium 137 mmol/L (136-145); Total Bilirubin 0.3 mg/dL (0.15-1.2); Total Protein 6.3 g/dL (6.6-8.7)
[2024-10-20 11:03] LABS: Anion Gap 15.7 (5-19); Potassium 4.7 mmol/L (3.5-5.1)
[2024-10-20 11:14] LABS: Lactic Sepsis W/Reflex 0.6 mmol/L (0.5-2.2)
[2024-10-20 11:22] LABS: Influenza A NEGATIVE (Negative); Influenza B NEGATIVE (Negative); Respiratory Syncytial Virus Ce NEGATIVE (Negative)
[2024-10-20 11:24] LABS: Covid PCR Positive (Negative)
[2024-10-20 12:57] VITALS: PULSE 81; O2SAT 99
== END 2024-10-20 12:58 | disposition home or self-care (01) ==
PROVIDERS: Emergency Provider Emergency Medicine; PCP Family Medicine
DX: U07.1 COVID-19 (principal); E86.0 Dehydration; Z79.4 Long term (current) use of insulin; Z11.52 Encounter for screening for COVID-19; E11.22 Type 2 diabetes mellitus with diabetic chronic kidney disease; I12.9 Hypertensive chronic kidney disease with stage 1 through stage 4 chronic kidney disease, or unspecified chronic kidney disease; N18.9 Chronic kidney disease, unspecified
CPT/HCPCS: 36415; 74018; 80053; 81001; 83605; 83690; 85025; 87637; 96374; 99284; J2405; J7030

== ENCOUNTER 2024-11-02 10:47 | Outpatient (CLI) | payer MEDICARE, SELFPAY ==
--- NOTE | 2024-11-02 11:00 | MR_ITS ---
WS: [id number] MRI LUMBAR SPINE NONCONTRAST TECHNIQUE: Sagittal T1, T2 and STIR imaging. Axial T1 and T2 imaging. CLINICAL INFORMATION: M48.062 - Spinal stenosis, lumbar region with neurogenic ... COMPARISON: MRI 2020 FINDINGS: Lumbar curve. No acute compression. Disc bulging worse at L4-5. L1-L2: Mild facet arthropathy. Spinal canal and foramen are patent. L2-L3: Mild annular bulging. Slight effacement of the ventral thecal sac. Slight narrowing of the RIGHT subarticular recess. Mild facet arthropathy. L3-L4: Mild annular bulging. Shallow central protrusion with mild central canal stenosis and narrowing of the subarticular recess bilaterally similar to previous. Mild LEFT foraminal narrowing. L4-L5: Central and RIGHT paracentral protrusion with moderate central canal stenosis. Impingement traversing RIGHT greater than LEFT L5 nerve roots. Central canal stenosis appears slightly progressed compared to previous. Mild LEFT greater than RIGHT foraminal narrowing. Moderate facet arthropathy. L5-S1: L5 is partially sacralized. Mild disc bulging with slight effacement of the ventral thecal sac. Moderate facet arthropathy. Foramen are patent. Visualized pelvic bony structures: Normal. Paravertebral soft tissues: Normal. Partially visualized large LEFT renal cyst measuring 6 cm. MR/MR lumbar spine wo con* [id number] IMPRESSION: 1. Moderate central canal stenosis L4-5 appears slightly progressed compared t o previous with impingement of the traversing L5 nerve roots bilaterally. 2. Mild central canal stenosis L3-4 and narrowing of the subarticular recess b ilaterally similar to previous. 3. Slight narrowing of the RIGHT L2-3 subarticular recess. 4. Mild LEFT greater than RIGHT L4-5 foraminal narrowing.
== END 2024-11-02 10:48 | disposition home or self-care (01) ==
LOC: RAD 10:49
PROVIDERS: PCP Family Medicine; Visit Provider Nurse Practitioner Family
DX: M48.062 Spinal stenosis, lumbar region with neurogenic claudication (principal); R93.7 Abnormal findings on diagnostic imaging of other parts of musculoskeletal system; M43.8X6 Other specified deforming dorsopathies, lumbar region; M51.369 Other intervertebral disc degeneration, lumbar region without mention of lumbar back pain or lower extremity pain; M47.896 Other spondylosis, lumbar region; M51.26 Other intervertebral disc displacement, lumbar region; M43.27 Fusion of spine, lumbosacral region; M51.379 Other intervertebral disc degeneration, lumbosacral region without mention of lumbar back pain or lower extremity pain; M47.897 Other spondylosis, lumbosacral region
CPT/HCPCS: 72148

== ENCOUNTER → 2024-11-16 11:00 | Outpatient (BNVA) | payer MEDICARE, SELFPAY | PROVIDERS: PCP Family Medicine; Visit Provider Nurse Practitioner Family | DX: M54.2 Cervicalgia (principal); G89.29 Other chronic pain; M48.062 Spinal stenosis, lumbar region with neurogenic claudication; M51.362 Other intervertebral disc degeneration, lumbar region with discogenic back pain and lower extremity pain; M47.26 Other spondylosis with radiculopathy, lumbar region | CPT/HCPCS: 99213 ==

== ENCOUNTER → 2024-11-23 14:38 | Outpatient (BNVA) | payer MEDICARE, SELFPAY | PROVIDERS: PCP Family Medicine; Visit Provider Family Medicine | DX: E11.9 Type 2 diabetes mellitus without complications (principal); Z79.4 Long term (current) use of insulin; Z87.440 Personal history of urinary (tract) infections; H61.22 Impacted cerumen, left ear; N39.0 Urinary tract infection, site not specified; N30.00 Acute cystitis without hematuria; R42 Dizziness and giddiness; Z79.899 Other long term (current) drug therapy | CPT/HCPCS: 80053; 81000; 83036; 85025; 87086 ==

== ENCOUNTER → 2024-11-30 15:04 | Outpatient (BNVA) | payer MEDICARE, SELFPAY | PROVIDERS: PCP Family Medicine; Visit Provider Nurse Practitioner Family | DX: M79.18 Myalgia, other site (principal); M54.2 Cervicalgia; M54.9 Dorsalgia, unspecified; G89.29 Other chronic pain; M48.062 Spinal stenosis, lumbar region with neurogenic claudication; M51.362 Other intervertebral disc degeneration, lumbar region with discogenic back pain and lower extremity pain; M47.816 Spondylosis without myelopathy or radiculopathy, lumbar region; M54.16 Radiculopathy, lumbar region | CPT/HCPCS: 20553; 99214; J1010; J3490 ==

== ENCOUNTER → 2024-12-09 10:04 | Outpatient (BNVA) | payer MEDICARE, SELFPAY | PROVIDERS: PCP Family Medicine; Visit Provider Family Medicine | DX: Z87.440 Personal history of urinary (tract) infections (principal) | CPT/HCPCS: 81000; 87086 ==

== ENCOUNTER 2024-12-10 21:42 | Inpatient (IN) | payer MEDICARE, SELFPAY ==
[2024-12-10 22:14] VITALS: BP 89/56; PULSE 61; RESP 20; TEMP 36.6; O2SAT 91; BMI 23.5
--- NOTE | 2024-12-10 22:24 | XRR_ITS ---
PROCEDURE INFORMATION: Exam: XR Chest Exam date and time: 12/10/2024 10:33 PM Age: 69 years old Clinical indication: Other: Weakness; Additional info: Weakness, hypoxia TECHNIQUE: Imaging protocol: Radiologic exam of the chest. Views: 1 view. COMPARISON: CR XR chest 1V portable [id number] 08/11/2022 3:38 AM FINDINGS: Lungs: Unremarkable. No consolidation. Pleural spaces: Unremarkable. No pleural effusion. No pneumothorax. Heart/Mediastinum: Unremarkable. No cardiomegaly. Bones/joints: Unremarkable. XR/XR chest 1V portable [id number] IMPRESSION: No acute findings.
--- NOTE | 2024-12-10 22:26 | W.ED.SYNCOPE ---
Documented by User: STEVE Monroy 12/11/24 01:06 HPI - Syncope General: Chief Complaint: Syncope Stated Complaint: fall/passed out Time Seen by Provider: 12/10/24 22:02 Source: patient Mode of arrival: EMS Limitations: no limitations History of Present Illness: 69yo female presents via EMS for evaluation following a syncopal episode that occurred when she was attmepting to go to the bathroom. States she has been taking medication for constipation and now has diarrhea. Reports a history of a pituitary tumor and had an abnormal CT head about 2 months ago. Patient reports she does have an MRI scheduled for next week. Patient states that she has been experiencing weakness for the past several weeks that she believes is related to the pituitary. Patient denies fever, cough, congestion, vomiting, difficulty breathing, shortness of breath, chest pain. Associated symptoms: Deny chest pain or fever(s) Related Data Home Medications ?Medication ?Instructions ?Recorded ?Confirmed cholecalciferol (vitamin D3) 25 25 mcg PO DAILY 03/28/21 12/09/24 mcg (1,000 unit) tablet celecoxib 200 mg capsule (Celebrex) 200 mg PO DAILY pain 10/15/24 12/09/24 gabapentin 100 mg capsule 300 mg PO BEDTIME PRN pain 10/15/24 12/09/24 hydrochlorothiazide 12.5 mg tablet 12.5 mg PO QAM 10/15/24 12/09/24 Previous Rx's ?Medication ?Instructions ?Recorded amlodipine 10 mg tablet 10 mg PO DAILY 90 days #90 tabs 04/23/24 desvenlafaxine succinate 50 mg 50 mg PO DAILY 90 days #90 tabs 04/23/24 tablet,extended release 24 hr (Pristiq) empagliflozin 25 mg tablet 25 mg PO DAILY 90 days #90 tabs 04/23/24 (Jardiance) lisinopril 40 mg tablet 40 mg PO DAILY 90 days #90 tabs 04/23/24 metoprolol succinate 50 mg 50 mg PO DAILY 90 days #90 tabs 04/23/24 tablet,extended release 24 hr pravastatin 40 mg tablet 40 mg PO DAILY 90 days #90 tabs 04/23/24 rivaroxaban 20 mg tablet (Xarelto) 20 mg PO DAILY 90 days #90 tabs 04/23/24 tizanidine 2 mg tablet 2 mg PO BID PRN muscle spasticity 04/23/24 #90 tabs tramadol 50 mg tablet 50 mg PO QID PRN pain 7 days #28 05/26/24 tabs levothyroxine 88 mcg tablet 88 mcg PO DAILY 90 days #90 tabs 09/03/24 ondansetron 4 mg disintegrating 4 mg PO Q6H PRN nausea and 10/15/24 tablet vomiting #14 tabs blood-glucose meter,continuous #1 ea 10/19/24 (Dexcom G6 Truck Driver Supervisor) blood-glucose sensor (Dexcom G6 #3 ea 10/19/24 Sensor device) blood-glucose transmitter (Dexcom #1 ea 10/19/24 G6 Transmitter device) insulin aspart 5 unit SUBCUT TIDWMEAL #15 mL 10/19/24 (niacinamide)(U-100) 100 unit/mL(3 mL) subcutaneous pen (Fiasp FlexTouch U-100 Insulin) ondansetron 8 mg disintegrating 8 mg PO Q6H #14 tabs 10/20/24 tablet insulin degludec 100 unit/mL (3 65 unit (0.65 mL) SUBCUT QAM 90 11/23/24 mL) subcutaneous pen days #58.5 mL sulfamethoxazole 800 1 tab PO Q12H 7 days #14 tabs 11/23/24 mg-trimethoprim 160 mg tablet (Bactrim DS) alcohol swabs 1 pad topical DAILY #100 ea 12/09/24 blood sugar diagnostic (Blood #50 ea 12/09/24 Glucose Test strips) blood-glucose meter #1 ea 12/09/24 lancets 32 gauge (E-Z Ject Lancets) #100 ea 12/09/24 Allergies Allergy/AdvReac Type Severity Reaction Status Date / Time No Known Allergies Allergy Verified 12/09/24 09:24 Review of Systems Const: Denies: fever(s), chills or body aches Card: Denies: chest pain Resp: Denies: dyspnea GI: Reports: diarrhea and constipation; Denies: vomiting : Denies: difficulty voiding or oliguria PFSH ED PFSH: Medical History Hyperlipidemia Thrombocytopenia Debility UTI (urinary tract infection) Hyperglycemia Elevated troponin Vomiting Influenza A CKD (chronic kidney disease) Diabetic neuropathy A-fib Possible urinary tract infection Esophageal thickening Pancreatic mass Elevated troponin Anemia Acute kidney injury Menopausal symptoms Relates she takes antidepressant for this DJD (degenerative joint disease) Hypothyroidism Pituitary tumor s/p post surgery at [facility] 2019? Hypertension DM type 2 (diabetes mellitus, type 2) Surgical History History of hysterectomy History of H/O pituitary neoplasm Status post resection Family History Other CAD (coronary artery disease) Social History Smoking and tobacco/nicotine status: never used tobacco/nicotine Second hand smoke exposure: No Alcohol intake: never Substance/Drug Use: never Female Reproductive History: Spontaneous abortions: No Physical Exam Const: COMMON NORMALS: patient oriented x3 and alert GENERAL APPEARANCE: cooperative ORIENTATION/CONSCIOUSNESS: Yes awake OTHER: Patient is laying reclined on the stretcher in no acute distress. She is able to give history with no difficulty. She is interactive with exam appropriately. Significant other is at bedside HENMT: COMMON NORMALS: normocephalic and atraumatic HEAD & SCALP: normocephalic and atraumatic Neck/C-Spine: COMMON NORMALS: full ROM Chest: CHEST: Yes Symmetrical chest wall rise Resp: COMMON NORMALS: normal respiratory effort, No use of accessory muscles and clear to auscultation bilaterally AUSCULTATION: clear to auscultation bilaterally Cardio: COMMON NORMALS: regular rate RATE: regular rate GI: COMMON NORMALS: Soft to palpation PALPATION: Yes Soft to palpation : COMMON NORMALS: Yes no CVA tenderness BLADDER/KIDNEY EXAM: Yes no CVA tenderness Back/Pelvis: COMMON NORMALS: no CVA tenderness Extremity: COMMON NORMALS: full ROM Neuro: AD COMA SCALE: document GCS findings Strawberry coma scale eye opening: Spontaneous Strawberry coma scale verbal response: Orientated Strawberry coma scale motor response: Obey commands Ad coma scale total score: 15 COMMON NORMALS: patient oriented x3 SENSORIUM/ORIENTATION: Yes alert Psych: COMMON NORMALS: cooperative ATTITUDE: Yes calm Course ED course: 2244: Spoke with Dr Sloan, home appliance technician. Discussed patient presentation for syncope with weakness. No chest pain or shortness of breath. Dr. Dallas states the EKG shows early repolarization, no STEMI. Vital Signs: Vital signs: Vital Signs Temperature 98 F 12/10/24 22:14 Pulse Rate 67 12/11/24 01:09 Respiratory Rate 20 H 12/10/24 22:14 Blood Pressure 145/97 12/11/24 01:09 Pulse Oximetry 96 12/11/24 01:09 MDM - Syncope Medical Decision Making 69yo female presents via EMS for evaluation following a syncopal episode that occurred when she was attmepting to go to the bathroom. States she has been taking medication for constipation and now has diarrhea. Reports a history of a pituitary tumor and had an abnormal CT head about 2 months ago. Patient reports she does have an MRI scheduled for next week. Patient states that she has been experiencing weakness for the past several weeks that she believes is related to the pituitary. Patient denies fever, cough, congestion, vomiting, difficulty breathing, shortness of breath, chest pain. Patient is nontoxic in appearance. Initial blood pressure noted to be 89/56 with a room air oxygen saturation of 91%. Differential diagnoses include but are not limited to syncope related to orthostatic hypotension, dehydration, vasovagal syncope, cardiac dysrhythmia, [place] EKG was concerning for ST depression. Discussed with interventional radiologist Dr. Sloan, early repolarization, no STEMI. Leukocytosis with a white blood cell count of 16. Hemoglobin is noted to be in the normal range of 13.2. Mild hyponatremia with a sodium level of 133. Potassium is noted to be 5.5, consistent with previous on 11/23/2024. Creatinine is 1.9, increased from previous of 1.3 on 11/23/2024. BUN is elevated at 49. Magnesium is elevated at 2.9. Likely hemoconcentration. Baseline troponin is 31, 2-hour troponin is pending. UA with 4+ bacteria, 1+ leukocyte esterase. Stool sample obtained. Occult blood is positive. lactoferrin is negative. Discussed findings with patient and family. Patient did give a urine sample yesterday and the culture is currently pending. She has not yet picked up her antibiotics. Patient received ceftriaxone while in the emergency department and advised to forklift picker her antibiotics that were prescribed by her doctor. Repeat blood pressure noted to be 121 systolic after 1 L normal saline bolus. Patient does report that she is feeling somewhat better. Pending 2-hour troponin, second EKG is very similar to the first with again minimal ST depression noted. Patient still feeling very weak and does not feel as if she can go home. Patient likely to be admitted. Dr. Mcgill to assume care due to change of shift. Lab Data I reviewed the patient's lab results. 12/10/24 22:50 12/10/24 22:50 Radiology Impressions Chest X-Ray 12/10/24 22:24 IMPRESSION: No acute findings. Abdomen/Pelvis CT 12/11/24 00:30 IMPRESSION: 1. Moderate diffuse thickening of the descending colon and sigmoid colon. Correlate with a nonspecific colitis. 2. Patchy ground-glass opacities in the left lung base are nonspecific and suggest possible atypical infection. 3. Other nonemergent findings above. Laboratory Results WBC 16.00 10^3/uL (3.29-11.43) H 12/10/24 22:50 RBC 4.93 10^6/uL (3.85-5.65) 12/10/24 22:50 Hgb 13.20 g/dL (11.27-16.99) 12/10/24 22:50 Hct 43.0 % (36-47) 12/10/24 22:50 MCV 87.2 fl (85-98) 12/10/24 22:50 MCH 26.8 pg (27-33) L 12/10/24 22:50 MCHC 30.7 g/dL (30-55) 12/10/24 22:50 RDW 13.9 % (12.1-15.1) 12/10/24 22:50 Plt Count 223 10^3/cmm (157-399) 12/10/24 22:50 MPV 9.6 fL (7.4-10.4) 12/10/24 22:50 Neut % (Auto) 87.4 % 12/10/24 22:50 Lymph % (Auto) 8.3 % 12/10/24 22:50 Mclean % (Auto) 1.8 % 12/10/24 22:50 Eos % (Auto) 1.6 % 12/10/24 22:50 Baso % (Auto) 0.4 % 12/10/24 22:50 Neut # (Auto) 13.99 10^3/uL (1.8-7.7) H 12/10/24 22:50 Lymph # (Auto) 1.3 10^3/uL (0.8-4.8) 12/10/24 22:50 Mclean # (Auto) 0.3 10^3/uL (0.2-0.9) 12/10/24 22:50 Eos # (Auto) 0.3 10^3/uL (0.0-0.8) 12/10/24 22:50 Baso # (Auto) 0.1 10^3/uL (0.0-0.1) 12/10/24 22:50 Nucleated RBC % (auto) 0 % 12/10/24 22:50 Nucleated RBCs # 0.0 /100WBC 12/10/24 22:50 Sodium 133 mmol/L (136-145) L 12/10/24 22:50 Potassium 5.5 mmol/L (3.5-5.1) H 12/10/24 22:50 Chloride 102 mmol/L (98-107) 12/10/24 22:50 Carbon Dioxide 19 mmol/L (22-29) L 12/10/24 22:50 Anion Gap 17.5 (5-19) 12/10/24 22:50 BUN 49 mg/dL (8-23) H 12/10/24 22:50 Creatinine 1.9 mg/dL (0.5-0.9) H 12/10/24 22:50 GFR Calculation Not Reportable 12/10/24 22:50 Glucose 339 mg/dL (65-115) H 12/10/24 22:50 Calculated Osmolality 302 mOsm/kg (285-295) H 12/10/24 22:50 Lactic Acid 2.0 mmol/L (0.5-2.2) 12/10/24 22:50 Calcium 8.7 mg/dL (8.5-10.5) 12/10/24 22:50 Magnesium 2.9 mg/dL (1.7-2.3) H 12/10/24 22:50 Total Bilirubin 0.4 mg/dL (0.15-1.2) 12/10/24 22:50 AST 21 U/L (0-32) 12/10/24 22:50 ALT 18 U/L (0-33) 12/10/24 22:50 Alkaline Phosphatase 108 U/L (35-105) H 12/10/24 22:50 Troponin T Baseline 31 ng/L (0-10) H 12/10/24 22:50 Total Protein 6.2 g/dL (6.6-8.7) L 12/10/24 22:50 Albumin 3.7 g/dL (3.5-5.2) 12/10/24 22:50 Globulin 2.5 g/dL (1.3-4.6) 12/10/24 22:50 Urine Color Yellow (Yellow) 12/10/24 23:34 Urine Appearance Clear (CLEAR) 12/10/24 23:34 Urine pH 5.5 (5-7) 12/10/24 23:34 Ur Specific [place] 1.023 (1.005-1.030) 12/10/24 23:34 Urine Protein 2+ (Negative) A 12/10/24 23:34 Urine Glucose (UA) 3+ (Normal) H 12/10/24 23:34 Urine Ketones Trace (Negative) 12/10/24 23:34 Urine Blood Negative (Negative) 12/10/24 23:34 Urine Nitrate Negative (Negative) 12/10/24 23:34 Urine Bilirubin Negative (Negative) 12/10/24 23:34 Urine Urobilinogen 1.0 mg/dL (Negative) 12/10/24 23:34 Ur Leukocyte Esterase 1+ (Negative) A 12/10/24 23:34 Urine RBC 0-2 /hpf (0-2) 12/10/24 23:34 Urine WBC 21-50 /hpf (0-5) H 12/10/24 23:34 Ur Squamous Epith Cells 0-5 /hpf (0-5) 12/10/24 23:34 Amorphous Sediment Not Reportable 12/10/24 23:34 Urine Bacteria 4+ /hpf (NONE) H 12/10/24 23:34 Hyaline Casts 11.16 /lpf 12/10/24 23:34 C. difficile (PCR) Negative (Negative) 12/10/24 23:34 No radiology studies performed this visit Discharge Plan Discharge Patient Disposition: Admitted As Inpatient Clinical Impression: Acute cystitis, Diarrhea, Syncope, Acute hyperkalemia, Urinary tract infection Condition: Stable Coding Level of Care Code ED Food Service Lead for Chg Fwd Documented by User: Gil Mcgill DO 12/11/24 01:20 HPI - Syncope General: Chief Complaint: Syncope Stated Complaint: fall/passed out Time Seen by Provider: 12/10/24 22:02 Related Data Home Medications ?Medication ?Instructions ?Recorded ?Confirmed cholecalciferol (vitamin D3) 25 25 mcg PO DAILY 03/28/21 12/09/24 mcg (1,000 unit) tablet celecoxib 200 mg capsule (Celebrex) 200 mg PO DAILY pain 10/15/24 12/09/24 gabapentin 100 mg capsule 300 mg PO BEDTIME PRN pain 10/15/24 12/09/24 hydrochlorothiazide 12.5 mg tablet 12.5 mg PO QAM 10/15/24 12/09/24 Previous Rx's ?Medication ?Instructions ?Recorded amlodipine 10 mg tablet 10 mg PO DAILY 90 days #90 tabs 04/23/24 desvenlafaxine succinate 50 mg 50 mg PO DAILY 90 days #90 tabs 04/23/24 tablet,extended release 24 hr (Pristiq) empagliflozin 25 mg tablet 25 mg PO DAILY 90 days #90 tabs 04/23/24 (Jardiance) lisinopril 40 mg tablet 40 mg PO DAILY 90 days #90 tabs 04/23/24 metoprolol succinate 50 mg 50 mg PO DAILY 90 days #90 tabs 04/23/24 tablet,extended release 24 hr pravastatin 40 mg tablet 40 mg PO DAILY 90 days #90 tabs 04/23/24 rivaroxaban 20 mg tablet (Xarelto) 20 mg PO DAILY 90 days #90 tabs 04/23/24 tizanidine 2 mg tablet 2 mg PO BID PRN muscle spasticity 04/23/24 #90 tabs tramadol 50 mg tablet 50 mg PO QID PRN pain 7 days #28 05/26/24 tabs levothyroxine 88 mcg tablet 88 mcg PO DAILY 90 days #90 tabs 09/03/24 ondansetron 4 mg disintegrating 4 mg PO Q6H PRN nausea and 10/15/24 tablet vomiting #14 tabs blood-glucose meter,continuous #1 ea 10/19/24 (Dexcom G6 Truck Driver Supervisor) blood-glucose sensor (Dexcom G6 #3 ea 10/19/24 Sensor device) blood-glucose transmitter (Dexcom #1 ea 10/19/24 G6 Transmitter device) insulin aspart 5 unit SUBCUT TIDWMEAL #15 mL 10/19/24 (niacinamide)(U-100) 100 unit/mL(3 mL) subcutaneous pen (Fiasp FlexTouch U-100 Insulin) ondansetron 8 mg disintegrating 8 mg PO Q6H #14 tabs 10/20/24 tablet insulin degludec 100 unit/mL (3 65 unit (0.65 mL) SUBCUT QAM 90 11/23/24 mL) subcutaneous pen days #58.5 mL sulfamethoxazole 800 1 tab PO Q12H 7 days #14 tabs 11/23/24 mg-trimethoprim 160 mg tablet (Bactrim DS) alcohol swabs 1 pad topical DAILY #100 ea 12/09/24 blood sugar diagnostic (Blood #50 ea 12/09/24 Glucose Test strips) blood-glucose meter #1 ea 12/09/24 lancets 32 gauge (E-Z Ject Lancets) #100 ea 12/09/24 Allergies Allergy/AdvReac Type Severity Reaction Status Date / Time No Known Allergies Allergy Verified 12/09/24 09:24 [facility] ED PFSH: Medical History Hyperlipidemia Thrombocytopenia Debility UTI (urinary tract infection) Hyperglycemia Elevated troponin Vomiting Influenza A CKD (chronic kidney disease) Diabetic neuropathy A-fib Possible urinary tract infection Esophageal thickening Pancreatic mass Elevated troponin Anemia Acute kidney injury Menopausal symptoms Relates she takes antidepressant for this DJD (degenerative joint disease) Hypothyroidism Pituitary tumor s/p post surgery at [facility] 2019? Hypertension DM type 2 (diabetes mellitus, type 2) Surgical History History of hysterectomy History of H/O pituitary neoplasm Status post resection Family History Other CAD (coronary artery disease) Social History Smoking and tobacco/nicotine status: never used tobacco/nicotine Second hand smoke exposure: No Alcohol intake: never Substance/Drug Use: never Physical Exam Neuro: AD COMA SCALE: document GCS findings Ad coma scale total score: 15 Course Vital Signs: Vital signs: Vital Signs Temperature 98 F 12/10/24 22:14 Pulse Rate 67 12/11/24 01:09 Respiratory Rate 20 H 12/10/24 22:14 Blood Pressure 145/97 12/11/24 01:09 Pulse Oximetry 96 12/11/24 01:09 MDM - Syncope Medical Decision Making 69yo female presents via EMS for evaluation following a syncopal episode that occurred when she was attmepting to go to the bathroom. States she has been taking medication for constipation and now has diarrhea. Reports a history of a pituitary tumor and had an abnormal CT head about 2 months ago. Patient reports she does have an MRI scheduled for next week. Patient states that she has been experiencing weakness for the past several weeks that she believes is related to the pituitary. Patient denies fever, cough, congestion, vomiting, difficulty breathing, shortness of breath, chest pain. Patient is nontoxic in appearance. Initial blood pressure noted to be 89/56 with a room air oxygen saturation of 91%. Differential diagnoses include but are not limited to syncope related to orthostatic hypotension, dehydration, vasovagal syncope, cardiac dysrhythmia, [place] EKG was concerning for ST depression. Discussed with interventional radiologist Dr. Sloan, early repolarization, no STEMI. Leukocytosis with a white blood cell count of 16. Hemoglobin is noted to be in the normal range of 13.2. Mild hyponatremia with a sodium level of 133. Potassium is noted to be 5.5, consistent with previous on 11/23/2024. Creatinine is 1.9, increased from previous of 1.3 on 11/23/2024. BUN is elevated at 49. Magnesium is elevated at 2.9. Likely hemoconcentration. Baseline troponin is 31, 2-hour troponin is pending. UA with 4+ bacteria, 1+ leukocyte esterase. Stool sample obtained. Occult blood is positive. lactoferrin is negative. Discussed findings with patient and family. Patient did give a urine sample yesterday and the culture is currently pending. She has not yet picked up her antibiotics. Patient received ceftriaxone while in the emergency department and advised to forklift picker her antibiotics that were prescribed by her doctor. Repeat blood pressure noted to be 121 systolic after 1 L normal saline bolus. Patient does report that she is feeling somewhat better. Pending 2-hour troponin, second EKG is very similar to the first with again minimal ST depression noted. Patient still feeling very weak and does not feel as if she can go home. Patient likely to be admitted. Dr. Mcgill to assume care due to change of shift. Care transferred over to myself at shift change, lab work was reviewed, Dr. Boyce has talked to the patient reviewed the chart and we will admit to [facility]. Lab Data 12/10/24 22:50 12/10/24 22:50 Radiology Impressions Chest X-Ray 12/10/24 22:24 IMPRESSION: No acute findings. Abdomen/Pelvis CT 12/11/24 00:30 IMPRESSION: 1. Moderate diffuse thickening of the descending colon and sigmoid colon. Correlate with a nonspecific colitis. 2. Patchy ground-glass opacities in the left lung base are nonspecific and suggest possible atypical infection. 3. Other nonemergent findings above. Laboratory Results WBC 16.00 10^3/uL (3.29-11.43) H 12/10/24 22:50 RBC 4.93 10^6/uL (3.85-5.65) 12/10/24 22:50 Hgb 13.20 g/dL (11.27-16.99) 12/10/24 22:50 Hct 43.0 % (36-47) 12/10/24 22:50 MCV 87.2 fl (85-98) 12/10/24 22:50 MCH 26.8 pg (27-33) L 12/10/24 22:50 MCHC 30.7 g/dL (30-55) 12/10/24 22:50 RDW 13.9 % (12.1-15.1) 12/10/24 22:50 Plt Count 223 10^3/cmm (157-399) 12/10/24 22:50 MPV 9.6 fL (7.4-10.4) 12/10/24 22:50 Neut % (Auto) 87.4 % 12/10/24 22:50 Lymph % (Auto) 8.3 % 12/10/24 22:50 Mclean % (Auto) 1.8 % 12/10/24 22:50 Eos % (Auto) 1.6 % 12/10/24 22:50 Baso % (Auto) 0.4 % 12/10/24 22:50 Neut # (Auto) 13.99 10^3/uL (1.8-7.7) H 12/10/24 22:50 Lymph # (Auto) 1.3 10^3/uL (0.8-4.8) 12/10/24 22:50 Mclean # (Auto) 0.3 10^3/uL (0.2-0.9) 12/10/24 22:50 Eos # (Auto) 0.3 10^3/uL (0.0-0.8) 12/10/24 22:50 Baso # (Auto) 0.1 10^3/uL (0.0-0.1) 12/10/24 22:50 Nucleated RBC % (auto) 0 % 12/10/24 22:50 Nucleated RBCs # 0.0 /100WBC 12/10/24 22:50 Sodium 133 mmol/L (136-145) L 12/10/24 22:50 Potassium 5.5 mmol/L (3.5-5.1) H 12/10/24 22:50 Chloride 102 mmol/L (98-107) 12/10/24 22:50 Carbon Dioxide 19 mmol/L (22-29) L 12/10/24 22:50 Anion Gap 17.5 (5-19) 12/10/24 22:50 BUN 49 mg/dL (8-23) H 12/10/24 22:50 Creatinine 1.9 mg/dL (0.5-0.9) H 12/10/24 22:50 GFR Calculation Not Reportable 12/10/24 22:50 Glucose 339 mg/dL (65-115) H 12/10/24 22:50 Calculated Osmolality 302 mOsm/kg (285-295) H 12/10/24 22:50 Lactic Acid 2.0 mmol/L (0.5-2.2) 12/10/24 22:50 Calcium 8.7 mg/dL (8.5-10.5) 12/10/24 22:50 Magnesium 2.9 mg/dL (1.7-2.3) H 12/10/24 22:50 Total Bilirubin 0.4 mg/dL (0.15-1.2) 12/10/24 22:50 AST 21 U/L (0-32) 12/10/24 22:50 ALT 18 U/L (0-33) 12/10/24 22:50 Alkaline Phosphatase 108 U/L (35-105) H 12/10/24 22:50 Troponin T Baseline 31 ng/L (0-10) H 12/10/24 22:50 Total Protein 6.2 g/dL (6.6-8.7) L 12/10/24 22:50 Albumin 3.7 g/dL (3.5-5.2) 12/10/24 22:50 Globulin 2.5 g/dL (1.3-4.6) 12/10/24 22:50 Urine Color Yellow (Yellow) 12/10/24 23:34 Urine Appearance Clear (CLEAR) 12/10/24 23:34 Urine pH 5.5 (5-7) 12/10/24 23:34 Ur Specific [place] 1.023 (1.005-1.030) 12/10/24 23:34 Urine Protein 2+ (Negative) A 12/10/24 23:34 Urine Glucose (UA) 3+ (Normal) H 12/10/24 23:34 Urine Ketones Trace (Negative) 12/10/24 23:34 Urine Blood Negative (Negative) 12/10/24 23:34 Urine Nitrate Negative (Negative) 12/10/24 23:34 Urine Bilirubin Negative (Negative) 12/10/24 23:34 Urine Urobilinogen 1.0 mg/dL (Negative) 12/10/24 23:34 Ur Leukocyte Esterase 1+ (Negative) A 12/10/24 23:34 Urine RBC 0-2 /hpf (0-2) 12/10/24 23:34 Urine WBC 21-50 /hpf (0-5) H 12/10/24 23:34 Ur Squamous Epith Cells 0-5 /hpf (0-5) 12/10/24 23:34 Amorphous Sediment Not Reportable 12/10/24 23:34 Urine Bacteria 4+ /hpf (NONE) H 12/10/24 23:34 Hyaline Casts 11.16 /lpf 12/10/24 23:34 C. difficile (PCR) Negative (Negative) 12/10/24 23:34 Discharge Plan Discharge Patient Disposition: Admitted As Inpatient Clinical Impression: Acute cystitis, Diarrhea, Syncope, Acute hyperkalemia, Urinary tract infection Condition: Stable Coding Level of Care Code ED Food Service Lead for Chintan Persaud
--- NOTE | 2024-12-10 22:36 | ECG_ITS ---
[facility]: [facility]10 Pat Name: Ambika Nichols Department: Room: Gender: Female Screen Door Maker: : 1955 Requested By: Carlos Smith Order Number: [id number] Hunter MD: Nataliya Shaw M.D. Measurements Intervals [place] Rate: 58 P: 0 AR: 0 QRS: 44 QRSD: 89 T: 63 QT: 422 QTc: 417 Interpretive Statements Sinus rhythm with a supraventricular ectopics ST elevation suggestive of early repolarization in the inferolateral leads MODERATE ST DEPRESSION [0.05+ mV ST DEPRESSION] Compared to ECG 08/11/2022 06:54:45 ST (T wave) deviation now present T-wave abnormality no longer present Electronically Signed On 12-11-2024 14:23:48 CDT by Nataliya Shaw M.D. [email or web address]
[2024-12-10] MEDS: sodium chloride 0.9% 1,000 ML 999 ML IV (22:39)
[2024-12-10 22:59] LABS: Basophils # 0.1 10^3/uL (0.0-0.1); Basophils % 0.4 %; Eosinophils # 0.3 10^3/uL (0.0-0.8); Eosinophils % 1.6 %; Lymphocytes # 1.3 10^3/uL (0.8-4.8); Lymphocytes % 8.3 %; Mean Corpuscular HGB Conc 30.7 g/dL (30-55); Mean Corpuscular Hemoglobin 26.8 pg (27-33); Mean Corpuscular Volume 87.2 fl (85-98); Mean Platelet Volume 9.6 fL (7.4-10.4); Monocytes # 0.3 10^3/uL (0.2-0.9); Monocytes % 1.8 %; Neutrophils # 13.99 10^3/uL (1.8-7.7); Neutrophils % 87.4 %; Nucleated Red Blood Cells % 0 %; Platelet Count 223 10^3/cmm (157-399); Red Blood Count 4.93 10^6/uL (3.85-5.65); Red Cell Distribution Width 13.9 % (12.1-15.1)
[2024-12-10 23:19] LABS: Alanine Aminotransferase 18 U/L (0-33); Albumin Level 3.7 g/dL (3.5-5.2); Alkaline Phosphatase 108 U/L (35-105); Anion Gap 17.5 (5-19); Aspartate Amino Transferase 21 U/L (0-32); Blood Urea Nitrogen 49 mg/dL (8-23); Calcium 8.7 mg/dL (8.5-10.5); Carbon Dioxide 19 mmol/L (22-29); Chloride 102 mmol/L (98-107); Globulin 2.5 g/dL (1.3-4.6); Glucose 339 mg/dL (65-115); Magnesium 2.9 mg/dL (1.7-2.3); Osmolality Calculated 302 mOsm/kg (285-295); Potassium 5.5 mmol/L (3.5-5.1); Sodium 133 mmol/L (136-145); Total Bilirubin 0.4 mg/dL (0.15-1.2); Total Protein 6.2 g/dL (6.6-8.7); Troponin(5th) Baseline 31 ng/L (0-10)
[2024-12-10] MEDS: acetaminophen 1,000 MG/100 ML PIGGYBACK 400 MG IV (23:20)
[2024-12-10 23:42] LABS: Bilirubin Urine Negative (Negative); Blood Urine Negative (Negative); Glucose Urine UA 3+ (Normal); Ketones Urine Trace (Negative); Leukocyte Esterase Urine 1+ (Negative); Nitrate Urine Negative (Negative); Protein Urine 2+ (Negative); Specific Gravity, Urine 1.023 (1.005-1.030); Urine Appearance Clear (CLEAR); Urine Color Yellow (Yellow); pH Urine 5.5 (5-7)
[2024-12-10 23:44] LABS: Add Urine Microscopic? YES; Bacteria Urine 4+ /hpf; Hyaline Casts Urine 11.16 /lpf; RBC Urine 0-2 /hpf (0-2); Squamous Epithelial Cell Urine 0-5 /hpf (0-5); WBC Urine 21-50 /hpf (0-5)
[2024-12-10 23:59] LABS: UA Slide Review UA Slide Review Perf
[2024-12-11] VITALS (14 sets, daily range): BP systolic 67–145; BP diastolic 35–97; PULSE 64–95; RESP 16–18; TEMP 36.8–37.1; O2SAT 90–96
[2024-12-11] LABS: Add Urine Culture? Yes
[2024-12-11] MEDS: cefTRIAXone 2,000 mg SDV 2000 MG IVP (00:24)
--- NOTE | 2024-12-11 00:25 | P.HP_ITS ---
Providers/Chief Complaint 2 Primary Care Provider: Marcia Flannery MD Chief Complaint: fall/passed out History of Present Illness Ambika Nichols is a 69 year old female diabetes mellitus, insulin-dependent, hyperlipidemia, hypertension, hypothyroidism, degenerative joint disease, pituitary tumor, atrial fibrillation on anticoagulation with Xarelto, hypothyroidism, spinal stenosis presented to the hospital today for evaluation of syncope. She was brought in by EMS. Patient is stating that she took 1 amlf-bpb-qxalvid medication for her constipation, she went to the bathroom and passed out, as per the she passed out for about couple minutes, when she sat up she was still dizzy & blood pressure was extremely low, on her way to the hospital patient started having loose stools in the ambulance and couple of episodes in the hospital, on arrival blood pressure was in 80s, improved with IV fluids, she had leukocytosis 16,000 with signs of UTI I requested CT abdomen pelvis without contrast and requested septic bolus, blood cultures, lactic acid. She does have OLIMPIA as well. At the time of my evaluation patient is not endorsing any significant Jurgen pain nausea vomiting, blood pressure is 107/60 mmHg, awake and alert, lethargic and fatigued, at the bedside Patient takes insulin mostly in the daytime, no hypoglycemia, patient not endorsing dysuria, fever, nausea, vomiting or chest pain events. Previous urine culture positive for penicillin sensitive gram-negative and Klebsiella C. difficile panel requested Review of Systems 2 Const: Reports: chills, body aches and fatigue; Denies: fever(s) Eyes: Denies: change in vision ENMT: Denies: throat pain Card: Denies: chest pain Resp: Denies: dyspnea GI: Reports: abdominal pain and nausea : Denies: flank pain Musc: Denies: neck pain Skin/Breast: Denies: rash Medications/Allergies Home Medications ?Medication ?Instructions ?Recorded ?Confirmed ?Last Taken ?Type cholecalciferol (vitamin D3) 25 25 mcg PO DAILY 12/09/24 10/14/24 History mcg (1,000 unit) tablet amlodipine 10 mg tablet 10 mg PO DAILY 90 days #90 t abs 04/23/24 12/09/24 10/14/24 Rx desvenlafaxine succinate 50 mg 50 mg PO DAILY 90 days #90 tabs 04/23/24 12/09/24 10/14/24 Rx tablet,extended release 24 hr (Pristiq) empagliflozin 25 mg tablet 25 mg PO DAILY 90 days #90 tabs 04/23/24 12/09/24 10/14/24 Rx (Jardiance) lisinopril 40 mg tablet 40 mg PO DAILY 90 days #90 t abs 04/23/24 12/09/24 10/14/24 Rx metoprolol succinate 50 mg 50 mg PO DAILY 90 days #90 tabs 04/23/24 12/09/24 10/14/24 Rx tablet,extended release 24 hr pravastatin 40 mg tablet 40 mg PO DAILY 90 days #90 t abs 04/23/24 12/09/24 10/14/24 Rx rivaroxaban 20 mg tablet (Xarelto) 20 mg PO DAILY 90 d ays #90 tabs 04/23/24 12/09/24 10/14/24 Rx tizanidine 2 mg tablet 2 mg PO BID PRN muscle spast icity 04/23/24 12/09/24 Unknown Rx #90 tabs tramadol 50 mg tablet 50 mg PO QID PRN pain 7 days #28 05/26/24 12/09/24 Unknown Rx tabs levothyroxine 88 mcg tablet 88 mcg PO DAILY 90 days #9 0 tabs 09/03/24 12/09/24 10/14/24 Rx celecoxib 200 mg capsule (Celebrex) 200 mg PO DAILY pa in 10/15/24 12/09/24 10/14/24 History gabapentin 100 mg capsule 300 mg PO BEDTIME PRN pain 0 10/15/24 12/09/24 Unknown History hydrochlorothiazide 12.5 mg tablet 12.5 mg PO QAM 09/1812/09/24 10/14/24 History ondansetron 4 mg disintegrating 4 mg PO Q6H PRN nausea and 10/15/24 12/09/24 Unknown Rx tablet vomiting #14 tabs blood-glucose meter,continuous #1 ea 10/19/24 12/09/24 Unknown Rx (Dexcom G6 Cd Technician) blood-glucose sensor (Dexcom G6 #3 ea 10/19/24 5 Unknown Rx Sensor device) blood-glucose transmitter (Dexcom #1 ea 10/19/2412/09 Unknown Rx G6 Transmitter device) insulin aspart 5 unit SUBCUT TIDWMEAL #15 m L 10/19/24 12/09/24 Unknown Rx (niacinamide)(U-100) 100 unit/mL(3 mL) subcutaneous pen (Fiasp FlexTouch U-100 Insulin) ondansetron 8 mg disintegrating 8 mg PO Q6H #14 tabs 0 10/20/24 12/09/24 Unknown Rx tablet insulin degludec 100 unit/mL (3 65 unit (0.65 mL) SUBC UT QAM 90 11/23/24 12/09/24 Unknown Rx mL) subcutaneous pen days #58.5 mL sulfamethoxazole 800 1 tab PO Q12H 7 days #14 tab s 11/23/24 12/09/24 Unknown Rx mg-trimethoprim 160 mg tablet (Bactrim DS) alcohol swabs 1 pad topical DAILY #100 ea 12/09/24 12/09/24 Unknown Rx blood sugar diagnostic (Blood #50 ea 12/09/24 12/09/24 Unknown Rx Glucose Test strips) blood-glucose meter #1 ea 12/09/24 12/09/24 Unkn own Rx lancets 32 gauge (E-Z Ject Lancets) #100 ea 12/09/24 0 12/09/24 Unknown Rx Allergies Allergy/AdvReac Type Severity Reaction Status Date / Time No Known Allergies Allergy Verified 12/09/24 09:24 PFSH Acute 2 PFSH: Medical History Hyperlipidemia Thrombocytopenia Debility UTI (urinary tract infection) Hyperglycemia Elevated troponin Vomiting Influenza A CKD (chronic kidney disease) Diabetic neuropathy A-fib Possible urinary tract infection Esophageal thickening Pancreatic mass Elevated troponin Anemia Acute kidney injury Menopausal symptoms Relates she takes antidepressant for this DJD (degenerative joint disease) Hypothyroidism Pituitary tumor s/p post surgery at [facility] 2019? Hypertension DM type 2 (diabetes mellitus, type 2) Surgical History History of hysterectomy History of H/O pituitary neoplasm Status post resection Family History Other CAD (coronary artery disease) Social History Smoking and tobacco/nicotine status: never used tobacco/nicotine Second hand smoke exposure: No Alcohol intake: never Substance/Drug Use: never Female Reproductive History: Spontaneous abortions: No Vitals/I&O/Wt Last Vital Signs Temp 98 F 12/10/24 22:14 Pulse 64 12/11/24 00:15 Resp 20 H 12/10/24 22:14 BP 107/60 12/11/24 00:15 Pulse Ox 95 12/11/24 00:15 12/10/24 12/10/24 12/11/24 14:59 22:59 06:59 Intake Total 0 / 0 100 / 100 Balance 0 / 0 100 / 100 Weight last 48 hrs Weight 68.039 kg Physical Exam 2 Narrative: Clinically looks very good Alert GCS 15 Pressure 107/60 Heart rate 60 A-fib without currently on 2 L nasal cannula No active respiratory distress No audible stridor or wheezing Abdomen soft outpatient Lower extremity no edema at the bedside Pleasant and cooperative NIH 0 S1, S2 variable Sepsis: Is patient septic: Yes Focused sepsis exam performed: Yes F ocused sepsis exam: Cap refill less than 3 sec. No active encephalopathy Peripheral pulses intact Saturating well on room air Nonfocal neuroexam Blood pressure 107/60 Date exam was performed: 12/11/24 Time exam was performed: 00:31 Data 12/10/24 22:50 12/10/24 22:50 Micro: Microbiology 12/10/24 23:34 Stool Lactoferrin - Final Stool Occult Blood (FIT) - Final A&P Assessment and plan (1) Sepsis: (2) Diarrhea: Qualifiers: Diarrhea type: unspecified type Qualified Code(s): R19.7 - Diarrhea, unspecified (3) GERD (gastroesophageal reflux disease): (4) Barretts esophagus: Qualifiers: Ramesh's esophagus type: without dysplasia Qualified Code(s): K22.70 - Ramesh's esophagus without dysplasia (5) DM type 2 (diabetes mellitus, type 2): Qualifiers: Diabetes mellitus complication status: without complication Diabetes mellitus prison insulin use: with prison use Qualified Code(s): E11.9 - Type 2 diabetes mellitus without complications; Z79.4 - tank terminal gauger (current) use of insulin (6) Hypothyroidism: Qualifiers: Hypothyroidism type: acquired Qualified Code(s): E03.9 - Hypothyroidism, unspecified (7) Acute cystitis: Qualifiers: Hematuria presence: without hematuria Qualified Code(s): N30.00 - Acute cystitis without hematuria (8) Pituitary tumor: (9) Syncope: Plan Syncope Hypovolemic Patient was constipated took xvsj-agb-lfckkhq stool softeners, has been experiencing loose stools for last 5 hours No active nausea vomiting fever or chest pain EKG showing A-fib with slow ventricular response without infarctive changes Requested serial troponin normal EKG No active chest pain Request echo as above Blood pressure improving with IV fluid hydration Sepsis: Criteria met with tachypnea tachycardia leukocytosis requested lactic acid & blood culture, Start ceftriaxone source seems to be UTI CT abdomen pelvis requested Start septic bolus Acute on chronic kidney disease: Creatinine 1.9: Hold nephrotoxic agents hold hydrochlorothiazide Rule out postobstructive uropathy with CT scan Hyperkalemia noted Recently finished Bactrim treatment for UTI Hypotension: Hypovolemic: Hold antihypertensive regimen Diarrhea: Took goda-iyv-sxrlode medications for constipation: Requested CT abdomen pelvis requested cdiff panel Pituitary tumor: Patient has an MRI pending outpatient, will request MRI without contrast A-fib: Continue anticoagulating agent I will reduce the dose of metoprolol for now secondary to low blood pressure Full code Consistent carb diet with insulin sign scale PDMP PDMP Reviewed: Not Reviewed Attestations 2 Medical Necessity Statement*: More than 2 midnights anticipated Diagnoses Sepsis A41.9 Diarrhea R19.7 Diarrhea type: unspecified type GERD (gastroesophageal reflux disease) K21.9 Ramesh's esophagus without dysplasia K22.70 Ramesh's esophagus type: without dysplasia Type 2 diabetes mellitus without complication, with long-term current use of insulin E11.9; Z79.4 Diabetes mellitus complication status: without complication Diabetes mellitus tank terminal gauger insulin use: with prison use Acquired hypothyroidism E03.9 Hypothyroidism type: acquired Acute cystitis N30.00 Hematuria presence: without hematuria Pituitary tumor D49.7 Syncope R55
--- NOTE | 2024-12-11 00:30 | CTR_ITS ---
PROCEDURE INFORMATION: Exam: CT Abdomen And Pelvis Without Contrast Exam date and time: 12/11/2024 12:45 AM Age: 69 years old Clinical indication: Abdominal pain; Epigastric; Additional info: UTI, diarrhea TECHNIQUE: Imaging protocol: Computed tomography of the abdomen and pelvis without contrast. Radiation optimization: All CT scans at this facility use at least one of these dose optimization techniques: automated exposure control; mA and/or kV adjustment per patient size (includes targeted exams where dose is matched to clinical indication); or iterative reconstruction. COMPARISON: CT abdomen pelvis w con* [id number] 05/21/2020 5:28 PM RADIATION DOSE METRICS: Total DLP (mGy-cm): 937.27 FINDINGS: Lungs: Right posterior lower lobe atelectasis and/or scarring. Patchy ground-glass opacities in the left lung base are nonspecific and suggest possible atypical infection. Heart: Mild cardiomegaly. No pericardial effusion or pericardial thickening. Liver: The liver is normal. No hepatic masses are identified. Gallbladder and biliary ducts: The gallbladder is normal. There is no ductal dilatation. Pancreas: 3.8 x 5.8 x 6.0 cm peripherally calcified cystic structure in the mid pancreas is decreased in size compared to 2019 likely representing chronic pseudocyst. The pancreas is otherwise normal. Spleen: The spleen is normal. Adrenal glands: The adrenal glands are normal. Kidneys and ureters: No renal calcifications are identified. There is no hydronephrosis. Stomach and bowel: Moderate diffuse thickening of the descending colon and sigmoid colon. No evidence of large or small bowel obstruction. No other areas of bowel wall thickening. Appendix: A normal appendix is not identified. There is no secondary evidence of acute appendicitis. Intraperitoneal space: No pneumoperitoneum. No free fluid or fluid collection. Trace inflammatory changes associated with thickened colon. Vasculature: Atherosclerotic calcifications of the aorta are present. No aneurysm is identified. Lymph nodes: No enlarged lymph nodes are identified. Urinary bladder: The bladder is unremarkable. Reproductive: The uterus is absent. Bones/joints: No acute osseous abnormalities are seen. Soft tissues: Small bilateral inguinal hernias containing only fat are present. Mild diffuse subcutaneous edema. CT/CT abdomen pelvis wo con [id number] IMPRESSION: 1. Moderate diffuse thickening of the descending colon and sigmoid colon. Correlate with a nonspecific colitis. 2. Patchy ground-glass opacities in the left lung base are nonspecific and suggest possible atypical infection. 3. Other nonemergent findings above.
--- NOTE | 2024-12-11 00:36 | ECG_ITS ---
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 Measurements Intervals [place] Rate: 63 P: -35 IL: 181 QRS: 49 QRSD: 92 T: 74 QT: 406 QTc: 416 Interpretive Statements SINUS RHYTHM Early repolarization changes Compared to ECG 12/10/2024 22:31:16 Atrial fibrillation no longer present ST (T wave) deviation still present Electronically Signed On 12-11-2024 14:26:50 CDT by Nataliya Shaw M.D. [email or web address] [id number]
[2024-12-11 00:39] LABS: C.Diff PCR (Lab) NEGATIVE (Negative)
[2024-12-11 01:58] LABS: Troponin 5 2HR 27.61 ng/L (0-10)
[2024-12-11 01:59] LABS: Troponin 5 2HR Delta -3.39 ABS# (0-10)
[2024-12-11] MEDS: sodium chloride 0.9% 1,000 ML 999 ML IV (01:59)
[2024-12-11] MEDS: ondansetron 2 mg/ML SDV 2 mL 4 MG IVP (02:00)
[2024-12-11 02:16] LABS: Thyroid Stimulating Hormone 4.19 uIU/mL (0.27-4.20); Vitamin B12 784 pg/mL (232-1245)
[2024-12-11 02:26] LABS: Lipase 59 U/L (13-60)
[2024-12-11] MEDS: sodium chloride 0.9% 1,000 ML 75 ML IV ×2 (03:13→15:06)
[2024-12-11] MEDS: metroNIDAZOLE 500 MG Tablet PO (03:13)
[2024-12-11] MEDS: prochlorperazine 10 mg/2 mL Inj IVP (04:40)
[2024-12-11] MEDS: pantoprazole 40 mg SDV IVP ×2 (04:42→15:06)
[2024-12-11 05:14] LABS: Basophils % 0.1 %; Eosinophils % 0.2 %; Hematocrit 35.1 % (36-47); Lymphocytes # 0.8 10^3/uL (0.8-4.8); Lymphocytes % 4.8 %; Mean Corpuscular HGB Conc 31.1 g/dL (30-55); Mean Corpuscular Hemoglobin 26.9 pg (27-33); Mean Corpuscular Volume 86.7 fl (85-98); Mean Platelet Volume 9.7 fL (7.4-10.4); Monocytes % 6.6 %; Neutrophils # 13.85 10^3/uL (1.8-7.7); Neutrophils % 87.9 %; Nucleated Red Blood Cells % 0 %; Platelet Count 124 10^3/cmm (157-399); Red Blood Count 4.05 10^6/uL (3.85-5.65); Red Cell Distribution Width 14.1 % (12.1-15.1); White Blood Count 15.77 10^3/uL (3.29-11.43)
--- NOTE | 2024-12-11 05:24 | ECG_ITS ---
[facility] Date: 2024-12-11 Pat Name: Ambika Nichols Department: Room: 264 Gender: Female Naval Engineer: : 1955 Requested By: Carlos Smith Order Number: [id number] Dale MD: Nataliya Shaw M.D. Measurements Intervals [place] Rate: 72 P: -39 OR: 172 QRS: 7 QRSD: 91 T: 50 QT: 380 QTc: 418 Interpretive Statements SINUS RHYTHM Compared to ECG 12/11/2024 00:31:30 ST (T wave) deviation no longer present Electronically Signed On 12-11-2024 14:26:14 CDT by Nataliya Shaw M.D. [email or web address] [id number]
[2024-12-11 05:31] LABS: Troponin 5 6HR 25.55 ng/L (0-10)
[2024-12-11 05:32] LABS: Troponin 5 6HR Delta -5.45 ng/L (0-12)
[2024-12-11 05:37] LABS: Anion Gap 17.3 (5-19); Blood Urea Nitrogen 46 mg/dL (8-23); Calcium 8.1 mg/dL (8.5-10.5); Carbon Dioxide 17 mmol/L (22-29); Chloride 108 mmol/L (98-107); Glucose 245 mg/dL (65-115); Osmolality Calculated 304 mOsm/kg (285-295); Phosphorus 5.3 mg/dL (2.5-4.5); Potassium 5.3 mmol/L (3.5-5.1); Sodium 137 mmol/L (136-145)
[2024-12-11 06:55] LABS: Glucose Point of Care 223 mg/dL (70-110)
[2024-12-11 06:59] LABS: Glucose Point of Care 210 mg/dL (70-110)
[2024-12-11] MEDS: insulin lispro 100 unit/1 mL SUBCUT (08:13)
[2024-12-11] MEDS: rivaroxaban 10 mg Tablet 20 MG PO (08:14)
[2024-12-11] MEDS: levothyroxine 88 mcg Tablet PO (08:14)
[2024-12-11] MEDS: insulin glargine 100 units/1 mL 40 UNIT SUBCUT (09:29)
[2024-12-11] MEDS: AZITHROMYCIN ADD-Vantage 500 MG in 0.9% NaCl ADD-Vantage 250 ML 250 MG IV (09:29)
[2024-12-11 10:15] LABS: Influenza A NEGATIVE (Negative); Influenza B NEGATIVE (Negative); Respiratory Syncytial Virus Ce NEGATIVE (Negative); SARS-CoV-2 PCR NEGATIVE (Negative)
[2024-12-11] MEDS: metroNIDAZOLE IV 500 MG/100 ML PREMIX 100 MG IV ×2 (11:38→17:51)
--- NOTE | 2024-12-11 12:52 | PC.SOCIAL ---
IMM UPDATED IMM dated and initialed, copy given to patient and copy placed in chart.
[2024-12-11 13:06] LABS: Glucose Point of Care 126 mg/dL (70-110)
--- NOTE | 2024-12-11 14:33 | PC.NURSE ---
Pt noted to have a moderate amount of rust colored blood in brief with a few clots noted. VSS. Dr. Bernard advised. Pt did state that on her way back from the bathroom, she experienced some dizziness. Dizziness gone now that she is back in bed.
--- NOTE | 2024-12-11 15:24 | PC.NURSE ---
orthostatics on pt: Lying 105/61, sitting 87/54, standing 67/43. Dr. Bernard advised.
[2024-12-11 15:40] LABS: ABG PCO2 37.3 mmHg (35-45); ABG PH Result 7.31 (7.35-7.45); Base Excess ABG -6.7 mmol/L (-2.0-2.0); Blood Gas Allen Test Pos; Blood Gas Operator Identificat WALCI; Blood Gas Sample Site Radial, right; Blood Gas Sample Type Arterial; HCO3 ABG 18.9 mmol/L (22-26); Oxygen Device ROOM AIR; PO2 ABG 64.1 mmHg (80.0-100.0); PO2 FiO2 Ratio Arterial Blood 305
[2024-12-11] MEDS: lactated ringers 500 ML 999 ML IV (15:40)
[2024-12-11] MEDS: sucralfate 1 gm/10 mL Oral Liq UDC PO ×2 (15:41→20:27)
[2024-12-11 15:58] LABS: Basophils % 0.2 %; Eosinophils # 0.1 10^3/uL (0.0-0.8); Lymphocytes # 1.6 10^3/uL (0.8-4.8); Lymphocytes % 12.9 %; Mean Corpuscular HGB Conc 30.6 g/dL (30-55); Mean Corpuscular Volume 88.3 fl (85-98); Monocytes % 7.8 %; Neutrophils # 9.69 10^3/uL (1.8-7.7); Neutrophils % 77.9 %; Nucleated Red Blood Cells % 0 %; Platelet Count 122 10^3/cmm (157-399); Red Blood Count 3.85 10^6/uL (3.85-5.65); Red Cell Distribution Width 14.4 % (12.1-15.1); White Blood Count 12.43 10^3/uL (3.29-11.43)
[2024-12-11 16:12] LABS: Alanine Aminotransferase 14 U/L (0-33); Alkaline Phosphatase 77 U/L (35-105); Anion Gap 15.1 (5-19); Aspartate Amino Transferase 16 U/L (0-32); Blood Urea Nitrogen 48 mg/dL (8-23); Calcium 8.1 mg/dL (8.5-10.5); Carbon Dioxide 18 mmol/L (22-29); Chloride 110 mmol/L (98-107); Globulin 2.6 g/dL (1.3-4.6); Glucose 89 mg/dL (65-115); Osmolality Calculated 298 mOsm/kg (285-295); Potassium 5.1 mmol/L (3.5-5.1); Sodium 138 mmol/L (136-145); Total Bilirubin 0.2 mg/dL (0.15-1.2); Total Protein 5.6 g/dL (6.6-8.7)
[2024-12-11 16:13] LABS: Lactic Sepsis W/Reflex 0.8 mmol/L (0.5-2.2)
[2024-12-11 16:47] LABS: Glucose Point of Care 81 mg/dL (70-110)
--- NOTE | 2024-12-11 17:11 | P.PN_ITS ---
Subjective 2 Subjective: Patient was seen this morning, she tells me that she continues to feel unwell, fatigue, malaise, she feels sickly, her diarrhea has resolved, feels nauseous, no lightheadedness, dizziness, she denies any chest pain, no shortness of breath, she has nonspecific abdominal pain, no point tenderness, -In the afternoon, patient had clots in her depends, no active lower GI bleed, no hematochezia, will monitor closely repeat CBC, lactic acid Vitals/I&O/Wt Last Vital Signs Temp 98.5 F 12/11/24 15:24 Pulse 76 12/11/24 15:27 Resp 16 12/11/24 15:24 BP 105/61 12/11/24 15:27 Pulse Ox 94 12/11/24 15:24 O2 Del Method Room Air 12/11/24 15:24 12/11/24 12/11/24 12/11/24 06:59 14:59 22:59 Intake Total 2100 / 2100 530 / 530 891.25 / 1421.25 Balance 2100 / 2100 530 / 530 891.25 / 1421.25 Weight last 48 hrs Weight 86.455 kg Weight 86.183 kg Weight 68.039 kg Physical Exam 2 Const: COMMON NORMALS: no acute distress and patient oriented x3 Resp: COMMON NORMALS: normal respiratory effort, No retractions, No use of accessory muscles and clear to auscultation bilaterally AUSCULTATION: clear to auscultation bilaterally Cardio: COMMON NORMALS: regular rate, regular rhythm, S1 normal heart sound present and S2 normal heart sound present RATE: regular rate RHYTHM: r egular rhythm HEART SOUNDS: S1 normal heart sound present and S2 normal heart sound present GI: COMMON NORMALS: Normal to inspection, nondistended, normoactive bowel sounds present and non-tender Extremity: COMMON NORMALS: no pedal edema Neuro: COMMON NORMALS: patient oriented x3 Psych: COMMON NORMALS: mental status grossly normal Data 12/11/24 15:44 12/11/24 15:44 Micro: Microbiology 12/11/24 01:15 Blood Culture - Preliminary Blood SPECIMEN COLLECTED 12/11/24 01:15 Blood Culture - Preliminary Blood SPECIMEN COLLECTED 12/10/24 23:34 Stool Lactoferrin - Final Stool Occult Blood (FIT) - Final A&P Assessment and plan (1) Sepsis: (2) Diarrhea: Qualifiers: Diarrhea type: unspecified type Qualified Code(s): R19.7 - Diarrhea, unspecified (3) GERD (gastroesophageal reflux disease): (4) Barretts esophagus: Qualifiers: Ramesh's esophagus type: without dysplasia Qualified Code(s): K22.70 - Ramesh's esophagus without dysplasia (5) DM type 2 (diabetes mellitus, type 2): Qualifiers: Diabetes mellitus visual merchandiser insulin use: with visual merchandiser use Diabetes mellitus complication status: without complication Qualified Code(s): E11.9 - Type 2 diabetes mellitus without complications; Z79.4 - wool washer feeder (current) use of insulin (6) Hypothyroidism: Qualifiers: Hypothyroidism type: acquired Qualified Code(s): E03.9 - Hypothyroidism, unspecified (7) Acute cystitis: Qualifiers: Hematuria presence: without hematuria Qualified Code(s): N30.00 - Acute cystitis without hematuria (8) Pituitary tumor: (9) Syncope: Plan Syncope Hypovolemic Remains orthostatic positive We will keep on bedrest Patient was constipated took nhjq-pod-iiwlrvy stool softeners, has been experiencing loose stools for last 5 hours Continue IV fluids NSTEMI -No chest pain complaints -Cardiac echo Sepsis: Criteria met with tachypnea tachycardia leukocytosis Follow-up blood cultures Source is UTI, pneumonia Diarrhea CT/CT abdomen pelvis wo con [id number] IMPRESSION: 1. Moderate diffuse thickening of the descending colon and sigmoid colon. Correlate with a nonspecific colitis. 2. Patchy ground-glass opacities in the left lung base are nonspecific and suggest possible atypical infection. 3. Other nonemergent findings above. Plan -Continue Rocephin -Continue Flagyl -Stool studies CT chest shows patchy groundglass opacities in the left lung -Continue Rocephin -Add Flagyl Acute on chronic kidney disease: Creatinine 1.9: -IV fluids Recently finished Bactrim treatment for UTI Hypotension: Hypovolemic, Hold antihypertensive regimen Diarrhea: Stool studies Pituitary tumor: Patient has an MRI pending outpatient, A-fib: Hold Xarelto, hold metoprolol Hematochezia, hold Xarelto, Protonix, Carafate,, monitor hemoglobin Type 2 diabetes mellitus, low-dose sliding scale Full code SCDs for DVT prophylaxis, Xarelto on hold given hematochezia concerns PDMP PDMP Reviewed: Not Reviewed Attestations 2 Medical Necessity Statement*: Patient requires hospitalization for hypovolemia, sepsis, pneumonia, UTI, diarrhea, hypotension, hematochezia Diagnoses Sepsis A41.9 Diarrhea R19.7 Diarrhea type: unspecified type GERD (gastroesophageal reflux disease) K21.9 Ramesh's esophagus without dysplasia K22.70 Ramesh's esophagus type: without dysplasia Type 2 diabetes mellitus without complication, with long-term current use of insulin E11.9; Z79.4 Diabetes mellitus long-term insulin use: with long-term use Diabetes mellitus complication status: without complication Acquired hypothyroidism E03.9 Hypothyroidism type: acquired Acute cystitis N30.00 Hematuria presence: without hematuria Pituitary tumor D49.7 Syncope R55
--- NOTE | 2024-12-11 17:15 | USCV_ITS ---
Ambika Nichols Age: 69 Gender: F : 1955 Exam Date: 12/11/2024 18:07 Ordering Phys: William Bernard MD Technologist: Nicolas Hazel [place] [facility] [place]: syncope BP: 135 / 88 HR: 84 Rhythm: Sinus Technical Quality: Adequate MEASUREMENTS (Male / Female) Normal Values 2D ECHO LV Diastolic Diameter PLAX 3.4 cm 4.2 - 5.9 / 3.9 - 5.3 cm IVS Diastolic Thickness 1.6 cm 0.6 - 1.0 / 0.6 - 0.9 cm IVS Systolic Thickness 1.4 cm LVPW Diastolic Thickness 1.4 cm 0.6 - 1.0 / 0.6 - 0.9 cm LVPW Systolic Thickness 1.5 cm LVOT Diameter 2.0 cm LV Ejection Fraction 2D Teich 70.4 % LV Ejection Fraction MOD 2C 62.3 % LV Ejection Fraction 2C AL 64.4 % LA Diameter 4.4 cm RA Systolic Volume 4C AL 27.7 ml RA Systolic Volume 4C MOD 27.3 ml LA Sys Volume AL 56.4 cm cubed LA Sys Volume Index AL 27.6 cm cubed/m squared Aorta at Sinotubular Diameter 2.1 cm M-MODE LA Ao Ratio MM 1.7 AV Cusp Separation MM 2.0 cm DOPPLER AV Peak Velocity 151.0 cm/s LVOT Peak Velocity 120.0 cm/s AV Area Cont Eq vti 2.8 cm squared AV Area Cont Eq pk 2.6 cm squared MV Peak Velocity 136.0 cm/s MV Area PHT 5.9 cm squared Mitral E to A Ratio 0.5 TV Peak Velocity 346.8 cm/s TR Peak Velocity 385.0 cm/s TR Peak Gradient 59.3 mmHg TR Mean Velocity 305.0 cm/s TR Mean Gradient 39.5 mmHg TR Velocity Time Integral 87.9 cm PV Peak Velocity 121.0 cm/s RV Ejection Time 0.3 s FINDINGS Left Ventricle Left ventricle is normal in size. LV systolic function is normal with EF of 60-65%. No regional wall motion abnormalities. Grade 1 diastolic dysfunction. Right Ventricle Normal in size and function Right Atrium Normal in size Left Atrium Normal in size Mitral Valve Mild mitral annular calcification. Mild mitral regurgitation. Aortic Valve Structurally normal aortic valve. No significant stenosis or regurgitation. Tricuspid Valve Mild tricuspid regurgitation. RVSP is 55-60mmHg. This is consistent with moderate pulmonary hypertension. Pulmonic Valve Mild pulmonic regurgitation. Pericardium Normal Aorta Normal in size IVC Not visualized CONCLUSIONS LV systolic function is normal with EF of 60-65%. Grade 1 diastolic dysfunction Mild mitral regurgitation Mild tricuspid regurgitation Moderate pulmonary hypertension Mild pulmonic regurgitation Mane Blake MD (Electronically Signed) Final Date: 12 December 2024 12:41 S
[2024-12-11 21:05] LABS: Glucose Point of Care 105 mg/dL (70-110)
[2024-12-11 23:09] LABS: Glucose Point of Care 75 mg/dL (70-110)
[2024-12-12] VITALS (9 sets, daily range): BP systolic 120–184; BP diastolic 56–73; PULSE 68–98; RESP 15–20; TEMP 36.4–37.2; O2SAT 90–97
[2024-12-12] MEDS: cefTRIAXone 1,000 mg SDV 2000 MG IVP (00:09)
[2024-12-12 00:11] LABS: Glucose Point of Care 109 mg/dL (70-110)
[2024-12-12] MEDS: pantoprazole 40 mg SDV IVP ×2 (03:13→14:41)
[2024-12-12] MEDS: sucralfate 1 gm/10 mL Oral Liq UDC PO ×4 (03:13→20:40)
[2024-12-12] MEDS: metroNIDAZOLE IV 500 MG/100 ML PREMIX 100 MG IV (03:13)
[2024-12-12 03:17] LABS: Basophils % 0.3 %; Eosinophils # 0.2 10^3/uL (0.0-0.8); Eosinophils % 2.4 %; Hematocrit 33.8 % (36-47); Lymphocytes # 1.7 10^3/uL (0.8-4.8); Lymphocytes % 19.8 %; Mean Corpuscular HGB Conc 28.7 g/dL (30-55); Mean Corpuscular Hemoglobin 26.9 pg (27-33); Mean Corpuscular Volume 93.6 fl (85-98); Mean Platelet Volume 9.9 fL (7.4-10.4); Monocytes # 0.7 10^3/uL (0.2-0.9); Neutrophils # 6.06 10^3/uL (1.8-7.7); Neutrophils % 69.3 %; Nucleated Red Blood Cells % 0 %; Platelet Count 107 10^3/cmm (157-399); Red Blood Count 3.61 10^6/uL (3.85-5.65); Red Cell Distribution Width 14.3 % (12.1-15.1); White Blood Count 8.75 10^3/uL (3.29-11.43)
[2024-12-12 03:25] LABS: Glucose Point of Care 64 mg/dL (70-110)
[2024-12-12 03:43] LABS: Procalcitonin 3.44 ng/mL (0-0.5)
[2024-12-12 03:55] LABS: Alanine Aminotransferase 12 U/L (0-33); Alkaline Phosphatase 71 U/L (35-105); Anion Gap 13.6 (5-19); Aspartate Amino Transferase 14 U/L (0-32); Blood Urea Nitrogen 39 mg/dL (8-23); C Reactive Protein 94.7 mg/L (0.0-4.9); Carbon Dioxide 18 mmol/L (22-29); Chloride 112 mmol/L (98-107); Globulin 2.1 g/dL (1.3-4.6); Glucose 71 mg/dL (65-115); Osmolality Calculated 296 mOsm/kg (285-295); Phosphorus 3.5 mg/dL (2.5-4.5); Potassium 4.6 mmol/L (3.5-5.1); Sodium 139 mmol/L (136-145); Total Bilirubin 0.2 mg/dL (0.15-1.2); Total Protein 5.1 g/dL (6.6-8.7)
[2024-12-12 04:14] LABS: Glucose Point of Care 138 mg/dL (70-110)
[2024-12-12] MEDS: sodium chloride 0.9% 1,000 ML 75 ML IV (05:14)
[2024-12-12 06:38] LABS: Glucose Point of Care 132 mg/dL (70-110)
[2024-12-12] MEDS: levothyroxine 88 mcg Tablet PO (08:04)
[2024-12-12] MEDS: AZITHROMYCIN ADD-Vantage 500 MG in 0.9% NaCl ADD-Vantage 250 ML 250 MG IV (08:04)
[2024-12-12] MEDS: insulin glargine 100 units/1 mL 20 UNIT SUBCUT (08:53)
[2024-12-12] MEDS: meropenem 500 mg SDV IVP ×2 (09:30→20:40)
[2024-12-12] MEDS: sodium chloride 0.9% 1,000 ML 50 ML IV ×2 (10:32→23:58)
[2024-12-12 11:30] LABS: Glucose Point of Care 120 mg/dL (70-110)
--- NOTE | 2024-12-12 12:02 | PC.CHAP ---
Pastoral Care Encounter/Spiritual Assessment Type of Contact [] Declined mask designer visit [] Patient/Family/Request visit [] Outpatient visit [] Follow-up visit [] Physician referral [] Code/Alert [x] Routine visit [] Staff referral [] Actively dying [] Patient sleeping [] Family support [] [] Out of room [] Palliative care [] [] Receiving care in room [] Pre-surgical visit [] Trauma [] Long length of stay [] ICU visit [] Other: Relational/Emotional Strength [x] Patient feels connected with others/family/visitors/staff [] Distress [] Loneliness/isolation [] Abandonment Spirituality of Patient [x] Person of Chanda [] Attends Yarsanism of their Chanda [x] Believes in Prayer [] Reads Bible or Sikhism materials [] There are Spiritual issues to be addressed Order Entry Technician Interventions [x] Prayer [x] Active listening [x] Non-anxious presence [] Spiritual/emotional support [] Crisis/trauma care [] Spiritual counseling [] Bereavement support [] Provided bereavement packet [] Provided Bible/devotional materials [] Provided toy/stuffed animal, coloring book to patient or family member [] Provided Communion [] Anointing/[place] [] Salvation [] Completed spiritual assessment [] Other: Impact on Illness or Injury [] Angry [] Fearful [] Anxious [] Often cries [] Exhaustion [] Unable to work [] Unable to attend zoroastrianism [] Unable to walk/stand [] Unable to read [] Unable to drive [] Unable to eat/drink [] Unable to sleep [] Unable to be with family [] Patient intubated [] Other: Summary Prayer +1 Time spent with patient 30 min
--- NOTE | 2024-12-12 14:41 | P.PN_ITS ---
Subjective 2 Subjective: Patient was seen this morning, she denies any fevers, no chills, no nausea, no vomiting, her orthostatic hypotension is improving, she did have a bowel movement with some blood streaks in it, no blood with clots since her episode yesterday, denies any shortness of breath, no wheezing, no cough, does have abdominal discomfort, she feels better but continues to feel sickly Vitals/I&O/Wt Last Vital Signs Temp 97.6 F 12/12/24 11:53 Pulse 68 12/12/24 11:53 Resp 15 12/12/24 11:53 BP 148/56 12/12/24 11:53 Pulse Ox 97 12/12/24 11:53 O2 Del Method Room Air 12/12/24 11:53 12/11/24 12/12/24 12/12/24 22:59 06:59 14:59 Intake Total 1611.25 / 2141.25 1100 / 3241.25 370 / 370 Balance 1611.25 / 2141.25 1100 / 3241.25 370 / 370 Weight last 48 hrs Weight 87.589 kg Weight 86.455 kg Weight 86.183 kg Weight 68.039 kg Physical Exam 2 Const: COMMON NORMALS: no acute distress and patient oriented x3 Resp: COMMON NORMALS: normal respiratory effort, No retractions, No use of accessory muscles and clear to auscultation bilaterally AUSCULTATION: clear to auscultation bilaterally Cardio: COMMON NORMALS: regular rate, regular rhythm, S1 normal heart sound present and S2 normal heart sound present RATE: regular rate RHYTHM: r egular rhythm HEART SOUNDS: S1 normal heart sound present and S2 normal heart sound present GI: COMMON NORMALS: Normal to inspection, nondistended, normoactive bowel sounds present and non-tender Extremity: COMMON NORMALS: no pedal edema Neuro: COMMON NORMALS: patient oriented x3 Psych: COMMON NORMALS: mental status grossly normal Data 12/12/24 03:10 12/12/24 03:10 Micro: Microbiology 12/10/24 23:34 Urine Culture - Preliminary Urine,Clean Catch Gram Negative Rods 12/11/24 01:15 Blood Culture - Preliminary Blood NEGATIVE TO DATE 12/11/24 01:15 Blood Culture - Preliminary Blood NEGATIVE TO DATE A&P Assessment and plan (1) Sepsis: (2) Diarrhea: Qualifiers: Diarrhea type: unspecified type Qualified Code(s): R19.7 - Diarrhea, unspecified (3) GERD (gastroesophageal reflux disease): (4) Barretts esophagus: Qualifiers: Ramesh's esophagus type: without dysplasia Qualified Code(s): K22.70 - Ramesh's esophagus without dysplasia (5) DM type 2 (diabetes mellitus, type 2): Qualifiers: Diabetes mellitus penitentiary insulin use: with penitentiary use Diabetes mellitus complication status: without complication Qualified Code(s): E11.9 - Type 2 diabetes mellitus without complications; Z79.4 - long term care phlebotomist (current) use of insulin (6) Hypothyroidism: Qualifiers: Hypothyroidism type: acquired Qualified Code(s): E03.9 - Hypothyroidism, unspecified (7) Acute cystitis: Qualifiers: Hematuria presence: without hematuria Qualified Code(s): N30.00 - Acute cystitis without hematuria (8) Pituitary tumor: (9) Syncope: Plan Syncope Hypovolemic Orthostatic positive yesterday We will keep on bedrest Patient was constipated took [id number] stool softeners, has been experiencing loose stools for last 5 hours Continue IV fluids NSTEMI -No chest pain complaints -Cardiac echo CONCLUSIONS LV systolic function is normal with EF of 60-65%. Grade 1 diastolic dysfunction Mild mitral regurgitation Mild tricuspid regurgitation Moderate pulmonary hypertension Mild pulmonic regurgitation Sepsis: Criteria met with tachypnea tachycardia leukocytosis Follow-up blood cultures Source is UTI, pneumonia Urinary tract infection -Urine culture showing Enterobacter cloacae, resistant to Rocephin -Broaden antibiotic coverage to meropenem Diarrhea CT/CT abdomen pelvis wo con [id number] IMPRESSION: 1. Moderate diffuse thickening of the descending colon and sigmoid colon. Correlate with a nonspecific colitis. 2. Patchy ground-glass opacities in the left lung base are nonspecific and suggest possible atypical infection. 3. Other nonemergent findings above. Plan -Switch antibiotics to meropenem -Stool studies CT chest shows patchy groundglass opacities in the left lung -Switch to meropenem Acute on chronic kidney disease: Creatinine 1.9: -IV fluids Recently finished Bactrim treatment for UTI Hypotension: Hypovolemic, Hold antihypertensive regimen Diarrhea: Stool studies pending Pituitary tumor: Patient has an MRI pending outpatient, A-fib: Hold Xarelto, hold metoprolol Hematochezia, likely secondary colitis as above, on IV antibiotics, hold Xarelto, Protonix, Carafate,, monitor hemoglobin -Will likely need outpatient follow-up with general surgery for colonoscopy Type 2 diabetes mellitus, low-dose sliding scale Full code SCDs for DVT prophylaxis, Xarelto on hold given hematochezia concerns PDMP PDMP Reviewed: Not Reviewed Attestations 2 Medical Necessity Statement*: Patient requires hospitalization for sepsis, hypotension, UTI, pneumonia, diarrhea, colitis Diagnoses Sepsis A41.9 Diarrhea R19.7 Diarrhea type: unspecified type GERD (gastroesophageal reflux disease) K21.9 Ramesh's esophagus without dysplasia K22.70 Ramesh's esophagus type: without dysplasia Type 2 diabetes mellitus without complication, with long-term current use of insulin E11.9; Z79.4 Diabetes mellitus bed bug exterminator insulin use: with penitentiary use Diabetes mellitus complication status: without complication Acquired hypothyroidism E03.9 Hypothyroidism type: acquired Acute cystitis N30.00 Hematuria presence: without hematuria Pituitary tumor D49.7 Syncope R55
[2024-12-12 17:28] LABS: Glucose Point of Care 151 mg/dL (70-110)
[2024-12-12 18:41] LABS: Magnesium 2.3 mg/dL (1.7-2.3)
[2024-12-12 20:30] LABS: Glucose Point of Care 197 mg/dL (70-110)
[2024-12-12] MEDS: TRAMadol 50 mg Tablet PO (20:46)
[2024-12-13] VITALS (10 sets, daily range): BP systolic 116–184; BP diastolic 65–84; PULSE 82–114; RESP 16–20; TEMP 36.6–37.2; O2SAT 91–98
[2024-12-13 00:08] LABS: Glucose Point of Care 154 mg/dL (70-110)
[2024-12-13] MEDS: pantoprazole 40 mg SDV IVP ×2 (02:40→14:34)
[2024-12-13] MEDS: sucralfate 1 gm/10 mL Oral Liq UDC PO ×4 (02:40→20:37)
[2024-12-13 04:05] LABS: Glucose Point of Care 150 mg/dL (70-110)
[2024-12-13 05:26] LABS: Basophils % 0.5 %; Eosinophils # 0.3 10^3/uL (0.0-0.8); Eosinophils % 3.6 %; Lymphocytes # 1.8 10^3/uL (0.8-4.8); Mean Corpuscular Hemoglobin 26.5 pg (27-33); Mean Corpuscular Volume 88.5 fl (85-98); Mean Platelet Volume 9.7 fL (7.4-10.4); Monocytes # 0.6 10^3/uL (0.2-0.9); Monocytes % 7.3 %; Neutrophils # 5.88 10^3/uL (1.8-7.7); Neutrophils % 67.3 %; Nucleated Red Blood Cells % 0 %; Platelet Count 134 10^3/cmm (157-399); Red Blood Count 4.07 10^6/uL (3.85-5.65); White Blood Count 8.73 10^3/uL (3.29-11.43)
[2024-12-13 05:52] LABS: Procalcitonin 1.37 ng/mL (0-0.5)
[2024-12-13 06:04] LABS: Alanine Aminotransferase 12 U/L (0-33); Albumin Level 3.3 g/dL (3.5-5.2); Alkaline Phosphatase 82 U/L (35-105); Anion Gap 13.9 (5-19); Aspartate Amino Transferase 14 U/L (0-32); Blood Urea Nitrogen 18 mg/dL (8-23); Calcium 8.5 mg/dL (8.5-10.5); Carbon Dioxide 19 mmol/L (22-29); Chloride 111 mmol/L (98-107); Globulin 2.9 g/dL (1.3-4.6); Glucose 129 mg/dL (65-115); Osmolality Calculated 292 mOsm/kg (285-295); Phosphorus 2.3 mg/dL (2.5-4.5); Potassium 4.9 mmol/L (3.5-5.1); Sodium 139 mmol/L (136-145); Total Bilirubin 0.3 mg/dL (0.15-1.2); Total Protein 6.2 g/dL (6.6-8.7)
[2024-12-13 06:38] LABS: Glucose Point of Care 123 mg/dL (70-110)
[2024-12-13] MEDS: meropenem 500 mg SDV IVP ×2 (08:28→20:37)
[2024-12-13] MEDS: levothyroxine 88 mcg Tablet PO (08:28)
[2024-12-13] MEDS: desvenlafaxine 50 mg Tablet PO (08:28)
[2024-12-13] MEDS: atorvastatin 40 mg Tablet 20 MG PO (08:28)
[2024-12-13] MEDS: insulin glargine 100 units/1 mL 20 UNIT SUBCUT (08:29)
[2024-12-13] MEDS: acetaminophen 500 mg Tablet PO ×2 (08:48→20:37)
[2024-12-13 10:59] LABS: Glucose Point of Care 179 mg/dL (70-110)
--- NOTE | 2024-12-13 12:16 | PM.PN ---
Subjective Subjective: Patient was seen this morning, she is alert oriented x 3, following all commands, she feels significantly better, but condition fatigue, malaise, she is ambulatory, but was only able to ambulate to the bathroom, denies any fevers, no chills, she did have 1 bowel movement this morning, no reported blood Vitals/I&O/Wt Last Vital Signs Temp 98.3 F 12/13/24 11:27 Pulse 88 12/13/24 11:27 Resp 18 12/13/24 11:27 BP 176/72 12/13/24 11:27 Pulse Ox 96 12/13/24 11:27 O2 Del Method Room Air 12/13/24 11:27 12/12/24 12/13/24 12/13/24 22:59 06:59 14:59 Intake Total 120 / 490 871.667 / 1361.667 480 / 480 Balance 120 / 490 871.667 / 1361.667 480 / 480 Weight last 48 hrs Weight 90.804 kg Weight 87.589 kg Physical Exam Const: COMMON NORMALS: no acute distress and patient oriented x3 Resp: COMMON NORMALS: normal respiratory effort, No retractions, No use of accessory muscles and clear to auscultation bilaterally AUSCULTATION: clear to auscultation bilaterally Cardio: COMMON NORMALS: regular rate, regular rhythm, S1 normal heart sound present and S2 normal heart sound present RATE: regular rate RHYTHM: regular rhythm HEART SOUNDS: S1 normal heart sound present and S2 normal heart sound present GI: COMMON NORMALS: Normal to inspection, nondistended, normoactive bowel sounds present and non-tender Extremity: COMMON NORMALS: no pedal edema Neuro: COMMON NORMALS: patient oriented x3 Psych: COMMON NORMALS: mental status grossly normal Data 12/13/24 05:12 12/13/24 05:12 Micro: Microbiology 12/10/24 23:34 Urine Culture - Preliminary Urine,Clean Catch Gram Negative Rods A&P Assessment and plan (1) Sepsis: (2) Diarrhea: Qualifiers: Diarrhea type: unspecified type Qualified Code(s): R19.7 - Diarrhea, unspecified (3) GERD (gastroesophageal reflux disease): (4) Barretts esophagus: Qualifiers: Ramesh's esophagus type: without dysplasia Qualified Code(s): K22.70 - Ramesh's esophagus without dysplasia (5) DM type 2 (diabetes mellitus, type 2): Qualifiers: Diabetes mellitus intermediate insulin use: with local intermodal truck driver use Diabetes mellitus complication status: without complication Qualified Code(s): E11.9 - Type 2 diabetes mellitus without complications; Z79.4 - local intermodal truck driver (current) use of insulin (6) Hypothyroidism: Qualifiers: Hypothyroidism type: acquired Qualified Code(s): E03.9 - Hypothyroidism, unspecified (7) Acute cystitis: Qualifiers: Hematuria presence: without hematuria Qualified Code(s): N30.00 - Acute cystitis without hematuria (8) Pituitary tumor: (9) Syncope: Plan Syncope Hypovolemic Orthostatic positive initially, will recheck orthostats today Off bedrest Patient was constipated took [id number] stool softeners, has been experiencing loose stools for last 5 hours Continue IV fluids, will consider de-escalating based on clinical progress today NSTEMI -No chest pain complaints -Cardiac echo CONCLUSIONS LV systolic function is normal with EF of 60-65%. Grade 1 diastolic dysfunction Mild mitral regurgitation Mild tricuspid regurgitation Moderate pulmonary hypertension Mild pulmonic regurgitation Sepsis: Criteria met with tachypnea tachycardia leukocytosis Follow-up blood cultures Source is UTI, pneumonia Urinary tract infection -Urine culture showing Enterobacter cloacae, resistant to Rocephin -Broaden antibiotic coverage to meropenem Diarrhea CT/CT abdomen pelvis wo con [id number] IMPRESSION: 1. Moderate diffuse thickening of the descending colon and sigmoid colon. Correlate with a nonspecific colitis. 2. Patchy ground-glass opacities in the left lung base are nonspecific and suggest possible atypical infection. 3. Other nonemergent findings above. Plan -Switch antibiotics to meropenem -Stool studies CT chest shows patchy groundglass opacities in the left lung -Switch to meropenem Acute on chronic kidney disease: Creatinine 1.3 -IV fluids Recently finished Bactrim treatment for UTI Hypotension: Hypovolemic, Hold antihypertensive regimen Diarrhea: Stool studies pending Pituitary tumor: Patient has an MRI pending outpatient, patient wants to consider doing it as inpatient, will discuss with MRI team tomorrow A-fib: Hold Xarelto, hold metoprolol Hematochezia, likely secondary colitis as above, on IV antibiotics, hold Xarelto, Protonix, Carafate,, monitor hemoglobin -Will likely need outpatient follow-up with general surgery for colonoscopy Type 2 diabetes mellitus, low-dose sliding scale Full code SCDs for DVT prophylaxis, Xarelto on hold given hematochezia concerns Plan for today, recheck orthostatic vitals, ambulate, continue IV meropenem follow cultures, continue to hold Xarelto due to initial hematochezia complaints PDMP PDMP Reviewed: Not Reviewed Attestations Medical Necessity Statement*: Patient requires hospitalization for UTI, pneumonia, diarrhea, orthostatic hypotension, hypotension Diagnoses Sepsis A41.9 Diarrhea R19.7 Diarrhea type: unspecified type GERD (gastroesophageal reflux disease) K21.9 Ramesh's esophagus without dysplasia K22.70 Ramesh's esophagus type: without dysplasia Type 2 diabetes mellitus without complication, with long-term current use of insulin E11.9; Z79.4 Diabetes mellitus intermediate insulin use: with local intermodal truck driver use Diabetes mellitus complication status: without complication Acquired hypothyroidism E03.9 Hypothyroidism type: acquired Acute cystitis N30.00 Hematuria presence: without hematuria Pituitary tumor D49.7 Syncope R55
[2024-12-13] MEDS: insulin lispro 100 unit/1 mL SUBCUT (12:24)
[2024-12-13 16:13] LABS: Glucose Point of Care 164 mg/dL (70-110)
[2024-12-13 21:03] LABS: Glucose Point of Care 259 mg/dL (70-110)
[2024-12-13] MEDS: amlodipine 10 mg Tablet PO (23:54)
[2024-12-14] MEDS: sucralfate 1 gm/10 mL Oral Liq UDC PO ×2 (03:31→09:05)
[2024-12-14] MEDS: pantoprazole 40 mg SDV IVP (03:31)
[2024-12-14 04:00] VITALS: BP 101/65; BP 103/64; BP 135/78; PULSE 106; PULSE 85; PULSE 98; RESP 15; TEMP 36.8; O2SAT 94
[2024-12-14 05:57] VITALS: PULSE 83
[2024-12-14 06:00] LABS: Basophils % 0.7 %; Eosinophils # 0.3 10^3/uL (0.0-0.8); Hematocrit 34.6 % (36-47); Lymphocytes # 1.2 10^3/uL (0.8-4.8); Lymphocytes % 20.5 %; Mean Corpuscular HGB Conc 30.3 g/dL (30-55); Mean Corpuscular Hemoglobin 26.6 pg (27-33); Mean Corpuscular Volume 87.6 fl (85-98); Mean Platelet Volume 9.5 fL (7.4-10.4); Monocytes # 0.6 10^3/uL (0.2-0.9); Monocytes % 9.1 %; Neutrophils # 3.91 10^3/uL (1.8-7.7); Neutrophils % 64.4 %; Nucleated Red Blood Cells % 0 %; Platelet Count 122 10^3/cmm (157-399); Red Blood Count 3.95 10^6/uL (3.85-5.65); Red Cell Distribution Width 13.8 % (12.1-15.1); White Blood Count 6.06 10^3/uL (3.29-11.43)
[2024-12-14 06:14] LABS: Alanine Aminotransferase 10 U/L (0-33); Albumin Level 3.1 g/dL (3.5-5.2); Alkaline Phosphatase 77 U/L (35-105); Anion Gap 12.7 (5-19); Aspartate Amino Transferase 11 U/L (0-32); Blood Urea Nitrogen 15 mg/dL (8-23); C Reactive Protein 32.1 mg/L (0.0-4.9); Calcium 8.7 mg/dL (8.5-10.5); Carbon Dioxide 22 mmol/L (22-29); Chloride 111 mmol/L (98-107); Globulin 2.5 g/dL (1.3-4.6); Glucose 129 mg/dL (65-115); Osmolality Calculated 295 mOsm/kg (285-295); Phosphorus 2.6 mg/dL (2.5-4.5); Potassium 4.7 mmol/L (3.5-5.1); Sodium 141 mmol/L (136-145); Total Bilirubin 0.3 mg/dL (0.15-1.2); Total Protein 5.6 g/dL (6.6-8.7)
[2024-12-14 06:19] LABS: Procalcitonin 0.65 ng/mL (0-0.5)
[2024-12-14 06:26] LABS: Glucose Point of Care 120 mg/dL (70-110)
[2024-12-14 07:38] VITALS: BP 146/70; PULSE 72; RESP 19; TEMP 36.8; O2SAT 96
[2024-12-14] MEDS: sulfamethoxazole-trimeth DS 160-800 mg Tablet 1 TAB PO (09:05)
[2024-12-14] MEDS: amlodipine 10 mg Tablet PO (09:06)
[2024-12-14] MEDS: desvenlafaxine 50 mg Tablet PO (09:06)
[2024-12-14] MEDS: atorvastatin 40 mg Tablet 20 MG PO (09:06)
[2024-12-14] MEDS: levothyroxine 88 mcg Tablet PO (09:06)
[2024-12-14] MEDS: insulin glargine 100 units/1 mL 20 UNIT SUBCUT (09:07)
[2024-12-14 12:02] LABS: Glucose Point of Care 192 mg/dL (70-110)
[2024-12-14] MEDS: insulin lispro 100 unit/1 mL SUBCUT (12:11)
--- NOTE | 2024-12-14 12:38 | P.DS_ITS ---
Discharge Providers Date of Admission: 12/11/24 01:58 Date of Discharge: December 14, 2024 Attending Provider at Admission: Cori Boyce MD Attending Provider at Discharge: William Bernard MD Primary Care Provider: Marcia Flannery MD Diagnoses at Discharge Discharge Diagnosis (1) Sepsis: Status: Acute (2) Diarrhea: Status: Acute Qualifiers: Diarrhea type: unspecified type Qualified Code(s): R19.7 - Diarrhea, unspecified (3) GERD (gastroesophageal reflux disease): Status: Acute (4) Barretts esophagus: Status: Acute Qualifiers: Ramesh's esophagus type: without dysplasia Qualified Code(s): K22.70 - Ramesh's esophagus without dysplasia (5) DM type 2 (diabetes mellitus, type 2): Status: Acute Qualifiers: Diabetes mellitus complication status: without complication Diabetes mellitus fpc insulin use: with long term care social worker use Qualified Code(s): E11.9 - Type 2 diabetes mellitus without complications; Z79.4 - long-term (current) use of insulin (6) Hypothyroidism: Status: Acute Qualifiers: Hypothyroidism type: acquired Qualified Code(s): E03.9 - Hypothyroidism, unspecified (7) Acute cystitis: Status: Acute Qualifiers: Hematuria presence: without hematuria Qualified Code(s): N30.00 - Acute cystitis without hematuria (8) Pituitary tumor: Status: Acute Permanent problem details: s/p post surgery at [facility] 2019? (9) Syncope: Status: Acute Reason for Visit Reason for Visit: fall/passed out Hospital Course Hospital Course This is a 69-year-old female with a past medical history of insulin-dependent type 2 diabetes mellitus, hypertension, hyperlipidemia hypothyroidism, degenerative joint disease, pituitary tumor, atrial fibrillation on antic oagulation Xarelto, hypothyroidism, spinal stenosis, who presents [facility] for syncope Patient was admitted to [facility] for orthostatic hypotension, secondary to dehydration, hypovolemia, diarrhea, UTI, sepsis, pneumonia. Patient was monitored as inpatient received IV fluids, broad-spectrum antibiotic therapy, overall clinically improved, diarrhea improved, respiratory status improved. On discharge her orthostatic vitals are improved, continues to have minimal orthostasis, no recurrent syncopal-like episodes. Discharged with instructions to drink plenty of electrolyte balanced fluids, hold amlodipine/hydrochlorothiazide/lisinopril until she sees her primary care provider later on in the week. For atrial fibrillation, she is on metoprolol, metoprolol was held due to her orthostatic hypotension, due to risk of her developing A-fib with RVR, I have instructed her to resume metoprolol tomorrow. Monitor for orthostasis closely, if she develops recurrent orthostasis potentially metoprolol will have to be held until she sees her primary care provider. She did develop hematochezia during hospitalization, with her diarrhea, with her CT scan findings could represent infectious colitis, she did receive broad- spectrum antibiotic therapy. Overall diarrhea and hematochezia have improved. Nonetheless, stool studies are still pending on discharge. Will have her follow-up with general surgery in 1 to 2 weeks for consideration of EGD and colonoscopy, the question is could she have inflammatory colitis as an etiology. I have held off on steroids, if she does have recurrent colitis certainly a trial of steroids could be possibility Due to her recurrent hematochezia, history of atrial fibrillation, her Xarelto was held, and will be held on discharge until she has her EGD and colonoscopy. I discussed with Ambika the risk and benefits of holding anticoagulant therapy, risk including but not limited to cardiovascular events, risk of stroke, risk of hypercoagulable events. However given her significant hematochezia during her hospitalization, I have recommended to hold Xarelto until at least she has her EGD and colonoscopy, risks and benefits discussed, shared decision making, she voiced understanding, all question answered, agreed to proceed. If she were to have any strokelike symptoms or chest pain please email or call 911. If she does develop any signs of DVT or PE to immediately come to the emergency room or call [phone], and remain ambulatory For her urinary tract infection, urine culture showing Enterobacter cloacae , monitored on broad-spectrum antibiotic therapy, overall clinically proved, discharged on ciprofloxacin For her acute kidney injury, likely secondary to dehydration, sepsis, creatinine on discharge 1.1 NSTEMI, no chest pain complaints, cardiac echo no acute findings, follow-up with primary care, consider stress testing as outpatient Physical Exam Const: COMMON NORMALS: no acute distress and patient oriented x3 Resp: COMMON NORMALS: normal respiratory effort, No retractions, No use of accessory muscles and clear to auscultation bilaterally AUSCULTATION: clear to auscultation bilaterally Cardio: COMMON NORMALS: regular rate, regular rhythm, S1 normal heart sound present and S2 normal heart sound present RATE: regular rate RHYTHM: regular rhythm HEART SOUNDS: S1 normal heart sound present and S2 normal heart sound present GI: COMMON NORMALS: Normal to inspection, nondistended, normoactive bowel sounds present and non-tender Extremity: COMMON NORMALS: no pedal edema Neuro: COMMON NORMALS: patient oriented x3 Psych: COMMON NORMALS: mental status grossly normal Discharge Data Studies Completed and Pending Completed Studies During Hospitalization Category Date Time Status CT abdomen pelvis wo con [id number] Stat Cat Scan 12/11/24 00:30 Completed CXRP [XR chest 1V portable [id number]] Stat Exams 12/10/24 22:24 Completed CV. echo complete* [id number] Routine Ultrasound 12/11/24 17:15 Completed Pending at discharge Category Date Time Status Blood Culture Stat Lab 12/11/24 01:15 Results OVA and Parasites, Conc and PE Routine Lab 12/10/24 23:34 Received Salmonella / Shigella / Campy Routine Lab 12/10/24 23:34 Received Radiology Impressions Chest X-Ray 12/10/24 22:24 IMPRESSION: No acute findings. Abdomen/Pelvis CT 12/11/24 00:30 IMPRESSION: 1. Moderate diffuse thickening of the descending colon and sigmoid colon. Correlate with a nonspecific colitis. 2. Patchy ground-glass opacities in the left lung base are nonspecific and suggest possible atypical infection. 3. Other nonemergent findings above. Laboratory Results WBC 6.06 10^3/uL (3.29-11.43) 12/14/24 05:24 RBC 3.95 10^6/uL (3.85-5.65) 12/14/24 05:24 Hgb 10.50 g/dL (11.27-16.99) L 12/14/24 05:24 Hct 34.6 % (36-47) L 12/14/24 05:24 MCV 87.6 fl (85-98) 12/14/24 05:24 MCH 26.6 pg (27-33) L 12/14/24 05:24 MCHC 30.3 g/dL (30-55) 12/14/24 05:24 RDW 13.8 % (12.1-15.1) 12/14/24 05:24 Plt Count 122 10^3/cmm (157-399) L 12/14/24 05:24 MPV 9.5 fL (7.4-10.4) 12/14/24 05:24 Neut % (Auto) 64.4 % 12/14/24 05:24 Lymph % (Auto) 20.5 % 12/14/24 05:24 Sherman % (Auto) 9.1 % 12/14/24 05:24 Eos % (Auto) 5.0 % 12/14/24 05:24 Baso % (Auto) 0.7 % 12/14/24 05:24 Neut # (Auto) 3.91 10^3/uL (1.8-7.7) 12/14/24 05:24 Lymph # (Auto) 1.2 10^3/uL (0.8-4.8) 12/14/24 05:24 Sherman # (Auto) 0.6 10^3/uL (0.2-0.9) 12/14/24 05:24 Eos # (Auto) 0.3 10^3/uL (0.0-0.8) 12/14/24 05:24 Baso # (Auto) 0.0 10^3/uL (0.0-0.1) 12/14/24 05:24 Nucleated RBC % (auto) 0 % 12/14/24 05:24 Nucleated RBCs # 0.0 /100WBC 12/14/24 05:24 Specimen Type Arterial 12/11/24 15:29 Sample Site Radial, right 12/11/24 15:29 ABG pH 7.31 (7.35-7.45) L 12/11/24 15:29 ABG pCO2 37.3 mmHg (35-45) 12/11/24 15:29 ABG pO2 64.1 mmHg (80.0-100.0) L 12/11/24 15:29 ABG PO2/FiO2 Ratio 305 12/11/24 15:29 ABG HCO3 18.9 mmol/L (22-26) L 12/11/24 15:29 ABG Base Excess -6.7 mmol/L (-2.0-2.0) L 12/11/24 15:29 Florentino Test Pos 12/11/24 15:29 Hematocrit 32.0 % (37-47) L 12/11/24 15:29 O2 Delivery Device Room air 12/11/24 15:29 FiO2 21.0 % 12/11/24 15:29 Hospital [employer] Rental Clerk ID Shabnam 12/11/24 15:29 Sodium 141 mmol/L (136-145) 12/14/24 05:24 Potassium 4.7 mmol/L (3.5-5.1) 12/14/24 05:24 Chloride 111 mmol/L (98-107) H 12/14/24 05:24 Carbon Dioxide 22 mmol/L (22-29) 12/14/24 05:24 Anion Gap 12.7 (5-19) 12/14/24 05:24 BUN 15 mg/dL (8-23) 12/14/24 05:24 Creatinine 1.1 mg/dL (0.5-0.9) H 12/14/24 05:24 GFR Calculation Not Reportable 12/14/24 05:24 Glucose 129 mg/dL (65-115) H 12/14/24 05:24 POC Glucose 192 mg/dL (70-110) H 12/14/24 11:04 Calculated Osmolality 295 mOsm/kg (285-295) 12/14/24 05:24 Lactic Acid 0.8 mmol/L (0.5-2.2) 12/11/24 15:44 Calcium 8.7 mg/dL (8.5-10.5) 12/14/24 05:24 Phosphorus 2.6 mg/dL (2.5-4.5) 12/14/24 05:24 Magnesium 2.3 mg/dL (1.7-2.3) 12/12/24 03:10 Total Bilirubin 0.3 mg/dL (0.15-1.2) 12/14/24 05:24 AST 11 U/L (0-32) 12/14/24 05:24 ALT 10 U/L (0-33) 12/14/24 05:24 Alkaline Phosphatase 77 U/L (35-105) 12/14/24 05:24 Troponin T Baseline 31 ng/L (0-10) H 12/10/24 22:50 Troponin T 120 Minute 27.61 ng/L (0-10) H 12/11/24 01:15 Delta Troponin T -3.39 ABS# (0-10) L 12/11/24 01:15 Troponin T Hi Sens 6Hr 25.55 ng/L (0-10) H 12/11/24 05:07 Troponin T Hi Sens 6Hr Delta -5.45 ng/L (0-12) L 12/11/24 05:07 C-Reactive Protein 32.1 mg/L (0.0-4.9) H 12/14/24 05:24 Total Protein 5.6 g/dL (6.6-8.7) L 12/14/24 05:24 Albumin 3.1 g/dL (3.5-5.2) L 12/14/24 05:24 Globulin 2.5 g/dL (1.3-4.6) 12/14/24 05:24 Lipase 59 U/L (13-60) 12/11/24 01:15 Vitamin B12 784 pg/mL (232-1245) 12/11/24 01:15 Procalcitonin 0.65 ng/mL (0-0.5) H 12/14/24 05:24 TSH 4.19 uIU/mL (0.27-4.20) 12/11/24 01:15 Urine Color Yellow (Yellow) 12/10/24 23:34 Urine Appearance Clear (CLEAR) 12/10/24 23:34 Urine pH 5.5 (5-7) 12/10/24 23:34 Ur Specific [place] 1.023 (1.005-1.030) 12/10/24 23:34 Urine Protein 2+ (Negative) A 12/10/24 23:34 Urine Glucose (UA) 3+ (Normal) H 12/10/24 23:34 Urine Ketones Trace (Negative) 12/10/24 23:34 Urine Blood Negative (Negative) 12/10/24 23:34 Urine Nitrate Negative (Negative) 12/10/24 23:34 Urine Bilirubin Negative (Negative) 12/10/24 23:34 Urine Urobilinogen 1.0 mg/dL (Negative) 12/10/24 23:34 Ur Leukocyte Esterase 1+ (Negative) A 12/10/24 23:34 Urine RBC 0-2 /hpf (0-2) 12/10/24 23:34 Urine WBC 21-50 /hpf (0-5) H 12/10/24 23:34 Ur Squamous Epith Cells 0-5 /hpf (0-5) 12/10/24 23:34 Amorphous Sediment Not Reportable 12/10/24 23:34 Urine Bacteria 4+ /hpf (NONE) H 12/10/24 23:34 Hyaline Casts 11.16 /lpf 12/10/24 23:34 C. difficile (PCR) Negative (Negative) 12/10/24 23:34 Influenza A (PCR) Negative (Negative) 12/11/24 09:11 Influenza Type B (PCR) Negative (Negative) 12/11/24 09:11 RSV (PCR) Negative (Negative) 12/11/24 09:11 SARS-CoV-2 (PCR) Negative (Negative) 12/11/24 09:11 Vitals Last Vital Signs Temp 98.2 F 12/14/24 07:38 Pulse 72 12/14/24 07:38 Resp 19 H 12/14/24 07:38 BP 146/70 12/14/24 07:38 Pulse Ox 96 12/14/24 07:38 O2 Del Method Room Air 12/14/24 07:38 Discharge Plan Discharge Patient Disposition: Home Condition: Stable Prescriptions: New ciprofloxacin HCl 500 mg tablet 500 mg PO BID 5 Days Qty: 10 0RF Continued tramadol 50 mg tablet 50 mg PO QID PRN (Reason: pain) 7 Days Qty: 28 0RF (DME) Dexcom G6 Sensor Device See Rx Instructions .ROUTE .MEDSUPPLY Qty: 3 3RF Rx Instructions: As directed (DME) Dexcom G6 World Designer Misc See Rx Instructions .ROUTE .MEDSUPPLY Qty: 1 0RF Rx Instructions: As directed (DME) Dexcom G6 Transmitter Device See Rx Instructions .ROUTE .MEDSUPPLY Qty: 1 0RF Rx Instructions: As directed (DME) Blood Glucose Test Strip See Rx Instructions .Route Qty: 50 0RF Rx Instructions: As directed (DME) blood-glucose meter Kit See Rx Instructions .Route Qty: 1 0RF Rx Instructions: As directed (DME) E-Z Ject Lancets 32 gauge misc See Rx Instructions .Route Qty: 100 0RF Rx Instructions: As directed amlodipine 10 mg tablet 10 mg PO DAILY 90 Days Qty: 90 2RF desvenlafaxine succinate [Pristiq] 50 mg tablet extended release 24 hr 50 mg PO DAILY 90 Days Qty: 90 2RF Rx Instructions: 340B Jardiance 25 mg tablet 25 mg PO DAILY 90 Days Qty: 90 2RF Rx Instructions: 340B pravastatin 40 mg tablet 40 mg PO DAILY 90 Days Qty: 90 3RF levothyroxine 88 mcg tablet 88 mcg PO DAILY 90 Days Qty: 90 2RF ondansetron 8 mg tablet,disintegrating 8 mg PO Q6H Qty: 14 0RF Rx Instructions: Take 1/2-1 tab every 6 hours as needed for nausea and vomiting Changed insulin degludec [Tresiba FlexTouch U-100] 100 unit/mL (3 mL) insulin pen 25 unit SUBCUT QAM Qty: 15 0RF Held lisinopril 40 mg tablet 40 mg PO DAILY 90 Days Qty: 90 2RF Hold Instructions: Resume on 12/28/24. Hold until you see primary care Rx Instructions: 340B metoprolol succinate 50 mg tablet extended release 24 hr 50 mg PO DAILY 90 Days Qty: 90 2RF Hold Instructions: Resume on 12/15/24. Xarelto 20 mg tablet 20 mg PO DAILY 90 Days Qty: 90 2RF Hold Instructions: Resume on 01/11/25. Hold until you see general surgery Rx Instructions: must administer with evening meal 340B tizanidine 2 mg tablet 2 mg PO BID PRN (Reason: muscle spasticity) Qty: 90 5RF Hold Instructions: Resume on 12/22/24. Hold until you finish ciprofloxacin, due to risk of drug interaction Rx Instructions: may cause sleepiness hydrochlorothiazide 12.5 mg tablet 12.5 mg PO QAM Hold Instructions: Resume on 12/28/24. Hold until see you see primary care Discontinued celecoxib [Celebrex] 200 mg capsule 200 mg PO DAILY Discharge Orders: Discharge Order (Routine); Ordered 12/14/24 Ordered By: William Bernard Referrals: Pasquale Grey MD [Physician] - 4-7 days (egd and colonoscopy) Marcia Flannery MD [Primary Care Provider] - 12/17/24 10:45 am Discharge Diet: Advance as tolerated Discharge Activity: Resume usual activity Patient Instructions: Sulfamethoxazole/Trimethoprim (By mouth) (Bactrim, Bactrim DS,..., Urinary Tract Infection in Women (DC), Opioid Safety Activity Restrictions/Additional Instructions: - Please hydrate well drink plenty of electrolyte balanced fluids -See your primary care provider in this week for recheck hemoglobin, and kidney function -I have discharged you on Bactrim for UTI, pneumonia -Monitor diarrhea if worsening go to emergency room -Continue to hold Xarelto -If you develop strokelike symptoms please immediately call 911 -If you develop calf pain or calf swelling or bloody cough, or signs of a blood clot please immediately call 911 or go to the emergency room -See general surgery in 1 to 2 weeks for EGD and colonoscopy -For your blood pressure resume metoprolol tomorrow -I have held your lisinopril and your hydrochlorothiazide and amlodipine, I would hold this until you see Marcia Flannery -However if your systolic blood pressure is greater than 180 or your diastolic blood pressures greater than 90 you can resume your amlodipine Discharge Attestations Time Spent in Discharge Care*: greater than 30 min Status at Discharge: Cognitive status at discharge: cognitively intact , Behavioral status at discharge: cooperative , Quality Metrics Clinical Quality Measures [ No reported AMI, CVA or VTE this stay] Coding Level of Care Code 06902 Total time (in minutes) for Discharge: 45 Diagnoses Sepsis A41.9 Diarrhea R19.7 Diarrhea type: unspecified type GERD (gastroesophageal reflux disease) K21.9 Ramesh's esophagus without dysplasia K22.70 Ramesh's esophagus type: without dysplasia Type 2 diabetes mellitus without complication, with long-term current use of insulin E11.9; Z79.4 Diabetes mellitus complication status: without complication Diabetes mellitus long term care social worker insulin use: with fpc use Acquired hypothyroidism E03.9 Hypothyroidism type: acquired Acute cystitis N30.00 Hematuria presence: without hematuria Pituitary tumor D49.7 Syncope R55
[2024-12-14 13:00] VITALS: BP 112/67; PULSE 94; RESP 18; TEMP 36.7; O2SAT 98
--- NOTE | 2024-12-14 13:22 | PC.NURSE ---
Discharge instructions provided to pt at this time. No questions or concerns voiced. Dr. Bernard no longer sending pt home on Bactrim, Cipro instead. New RX sent for Cipro. This nurse calls [facility] to let them know not to fill Bactim. Verbalized understanding. Pt to private vehicle via wheelchair with all belongings.
[2024-12-14 13:25] VITALS: BP 146/70; PULSE 72; RESP 19; TEMP 36.8; O2SAT 96
== END 2024-12-14 13:26 | disposition home or self-care (01) | DRG 872 ==
LOC: ER 12-11 01:58 → MEDSURG 12-11 01:59
PROVIDERS: Emergency Medicine; Admitting Provider Internal Medicine; Emergency Provider Nurse Practitioner; PCP Family Medicine; Visit Provider Family Medicine
DX: A41.9 Sepsis, unspecified organism (principal); A09 Infectious gastroenteritis and colitis, unspecified; N39.0 Urinary tract infection, site not specified; N17.9 Acute kidney failure, unspecified; R65.20 Severe sepsis without septic shock; K21.9 Gastro-esophageal reflux disease without esophagitis; K22.70 Barrett's esophagus without dysplasia; E03.9 Hypothyroidism, unspecified; E23.7 Disorder of pituitary gland, unspecified; Z79.4 Long term (current) use of insulin; E11.22 Type 2 diabetes mellitus with diabetic chronic kidney disease; I12.9 Hypertensive chronic kidney disease with stage 1 through stage 4 chronic kidney disease, or unspecified chronic kidney disease; N18.9 Chronic kidney disease, unspecified; E78.5 Hyperlipidemia, unspecified; I48.91 Unspecified atrial fibrillation; Z79.01 Long term (current) use of anticoagulants; I95.1 Orthostatic hypotension; E86.0 Dehydration; E86.1 Hypovolemia; B96.89 Other specified bacterial agents as the cause of diseases classified elsewhere; E11.40 Type 2 diabetes mellitus with diabetic neuropathy, unspecified; Z87.440 Personal history of urinary (tract) infections; Z79.84 Long term (current) use of oral hypoglycemic drugs; D49.7 Neoplasm of unspecified behavior of endocrine glands and other parts of nervous system
CPT/HCPCS: 36415; 36416; 36600; 71045; 74176; 80048; 80053; 81000; 81001; 82274; 82607; 82803; 82962; 83605; 83630; 83690; 83735; 84100; 84145; 84443; 84484; 85025; 86140; 87040; 87045; 87077; 87086; 87177; 87184; 87186; 87209; 87427; 87449; 87493; 87637; 93005; 93306; 96372; 96374; 96375; 97161; 97530; 99285; J0131; J0456; J0696; J0780; J1815; J2185; J2405; J2470; J3490; J7030; J7050; J7120; J9999

== ENCOUNTER 2024-12-25 11:06 | Outpatient (CLI) | payer MEDICARE, SELFPAY ==
--- NOTE | 2024-12-25 11:37 | MR_ITS ---
WS: [id number] MRI BRAIN WITHOUT AND WITH CONTRAST, ATTENTION DIRECTED TO THE PITUITARY GLAND HISTORY: D49.7 - Neoplasm of unspecified behavior of endocrine glands, prior pituitary surgery. COMPARISON: CT head 05/21/2020 and 10/15/2024 TECHNIQUE: Diffusion-weighted imaging, axial T2 sequence, and postcontrast images in 3 planes are performed. High-resolution coronal and sagittal imaging performed through the pituitary region with and without intravenous gadolinium. There is a large enhancing sellar/suprasellar mass without an identifiable pituitary gland. Mass is centered in the sella turcica and extends greatest to the RIGHT with encasement of the distal RIGHT intracranial carotid artery through the cavernous sinus. There is a long segment of carotid encasement. Encasement extends supraclinoid. Mass extends superiorly with contact on the optic chiasm and displacement of the infundibulum. There is encroachment upon but no displacement of the RIGHT A1 segment. Mass extends along the clivus. Length of the mass is 2.4 cm along the clivus. Anterior posterior 2.0 cm and transverse by 2.4 cm. Mass extends just across the midline of the sella but does not definitely encase or contact the LEFT carotid artery. There is a nodular enhancement of the infundibulum which is probably tumor extension. Tumor encroaching close to the RIGHT orbital apex. Partial encasement or displacement of the RIGHT optic nerve. Normal diffusion imaging. No acute infarct. Mild symmetric volume loss and small vessel disease. No large territory prior infarct. Ventricles are normal size. No additional masses. Dural venous sinuses are normal. MR/MR pituitary wo/w con* [id number] IMPRESSION: 1. Large enhancing lobulated sellar/suprasellar mass predominantly to the RIGH T of midline. Mass measures 2.0 cm AP x 2.4 cm transverse x 2.4 cm in length ex tending along the clivus. Mass encases the RIGHT cavernous carotid artery witho ut occlusion. Nodular enhancement along the infundibulum consistent with tumor extension. Mass is extending also towards the orbital apex. Recommend evaluatio n by ENT. This is most consistent with pituitary macroadenoma. By history patie nt had prior pituitary mass surgically excised. 2. No acute infarct. 3. No additional masses.
[2024-12-25] MEDS: gadobenate dimeglumine 20 mL vial 17 ML IV (11:59)
== END 2024-12-25 11:07 | disposition home or self-care (01) ==
LOC: RAD 11:08
PROVIDERS: PCP Family Medicine; Visit Provider Family Medicine
DX: D49.7 Neoplasm of unspecified behavior of endocrine glands and other parts of nervous system (principal); R22.0 Localized swelling, mass and lump, head; I67.9 Cerebrovascular disease, unspecified
CPT/HCPCS: 70553

== ENCOUNTER → 2025-01-07 10:31 | Outpatient (BNVA) | payer MEDICARE, SELFPAY | PROVIDERS: PCP Family Medicine; Visit Provider Family Medicine | DX: R82.71 Bacteriuria (principal); D64.9 Anemia, unspecified; Z87.440 Personal history of urinary (tract) infections | CPT/HCPCS: 81000; 85025; 87086 ==

== ENCOUNTER → 2025-02-15 11:20 | Outpatient (BNVA) | payer MEDICARE, SELFPAY | PROVIDERS: PCP Family Medicine; Visit Provider Nurse Practitioner Family | DX: M54.2 Cervicalgia (principal); M54.9 Dorsalgia, unspecified; G89.29 Other chronic pain; M48.062 Spinal stenosis, lumbar region with neurogenic claudication; M51.362 Other intervertebral disc degeneration, lumbar region with discogenic back pain and lower extremity pain; M47.816 Spondylosis without myelopathy or radiculopathy, lumbar region; M54.16 Radiculopathy, lumbar region | CPT/HCPCS: 99214 ==

== ENCOUNTER 2025-02-15 20:51 | Observation (INO) | payer MEDICARE, SELFPAY ==
[2025-02-15 20:55] VITALS: BP 133/74; PULSE 69; RESP 16; TEMP 36.1; O2SAT 98
[2025-02-15 22:43] VITALS: BP 145/81; PULSE 87; RESP 16; O2SAT 93
--- NOTE | 2025-02-15 22:56 | CTR_ITS ---
PROCEDURE INFORMATION: Exam: CTA Head With Contrast, Arteriography Exam date and time: 02/16/2025 12:11 AM Age: 69 years old Clinical indication: Speech disturbance; Prior surgery; Surgery date: 6+ months; Surgery type: Pituitary tumor removed; Additional info: Stroke like symptoms, unable to pick words when speaking, HX of pituitary mass TECHNIQUE: Imaging protocol: Computed tomographic angiography of the head with contrast. Exam focused on the arteries. 3D rendering (Not supervised by radiologist): MIP and/or 3D reconstructed images were created by the technologist. Radiation optimization: All CT scans at this facility use at least one of these dose optimization techniques: automated exposure control; mA and/or kV adjustment per patient size (includes targeted exams where dose is matched to clinical indication); or iterative reconstruction. Contrast material: OMNI 350; Contrast volume: 100 ml; Contrast route: INTRAVENOUS (IV); COMPARISON: 1. CT head wo con* [id number] 10/15/2024 1:42 PM 2. MR pituitary wo/w con* [id number] 12/25/2024 11:24 AM RADIATION DOSE METRICS: Total DLP (mGy-cm): 1124.1 FINDINGS: ANTERIOR CIRCULATION: Right internal carotid artery: Intracranial segment is patent with no significant stenosis. No aneurysm. Atherosclerotic calcification along the carotid siphon. Right middle cerebral artery: No occlusion or significant stenosis. No aneurysm. Right anterior cerebral artery: No occlusion or significant stenosis. No aneurysm. Left internal carotid artery: Intracranial segment is patent with no significant stenosis. No aneurysm. Atherosclerotic calcification along the carotid siphon. Left middle cerebral artery: No occlusion or significant stenosis. No aneurysm. Left anterior cerebral artery: No occlusion or significant stenosis. No aneurysm. POSTERIOR CIRCULATION: Right vertebral artery: No occlusion or significant stenosis. No aneurysm. Left vertebral artery: No occlusion or significant stenosis. No aneurysm. Basilar artery: No occlusion or significant stenosis. No aneurysm. Right posterior cerebral artery: No occlusion or significant stenosis. No aneurysm. Left posterior cerebral artery: No occlusion or significant stenosis. No aneurysm. Brain: Known sellar mass extending to the rightward suprasellar region and right cavernous sinus with enhancing thickened infundibulum as seen on comparison MRI. Cerebral ventricles: No ventriculomegaly. Bones/joints: Unremarkable. No acute fracture. Soft tissues: Unremarkable. PROCEDURE INFORMATION: Exam: CTA Neck With Contrast Exam date and time: 02/16/2025 12:11 AM Age: 69 years old Clinical indication: Speech disturbance; Prior surgery; Surgery date: 6+ months; Surgery type: Pituitary tumor removed; Additional info: Stroke like symptoms, unable to pick words when speaking, HX of pituitary mass TECHNIQUE: Imaging protocol: Computed tomographic angiography of the neck with contrast. Exam focused on the cervical segments of the vasculature. 3D rendering (Not supervised by radiologist): MIP and/or 3D reconstructed images were created by the technologist. Radiation optimization: All CT scans at this facility use at least one of these dose optimization techniques: automated exposure control; mA and/or kV adjustment per patient size (includes targeted exams where dose is matched to clinical indication); or iterative reconstruction. Contrast material: OMNI 350; Contrast volume: 100 ml; Contrast route: INTRAVENOUS (IV); COMPARISON: 1. MR pituitary wo/w con* [id number] 12/25/2024 11:[address] head wo con* [id number] 10/15/2024 1:42 PM RADIATION DOSE METRICS: Total DLP (mGy-cm): 460.5 FINDINGS: Right common carotid artery: No stenosis. No dissection or occlusion. Right internal carotid artery: Mild atherosclerosis without significant stenosis of the extracranial segment. No dissection or occlusion. Right external carotid artery: No occlusion or stenosis of the origin. Left common carotid artery: No stenosis. No dissection or occlusion. Left internal carotid artery: Mild atherosclerosis without significant stenosis of the extracranial segment. No dissection or occlusion. Left external carotid artery: No occlusion or stenosis of the origin. Right vertebral artery: No stenosis. No dissection or occlusion. Left vertebral artery: No stenosis. No dissection or occlusion. Soft tissues: Unremarkable. No significant soft tissue swelling. Bones/joints: No acute fracture. Mild degenerative change along the spine. CT/CT angio headneck* [id number] IMPRESSION: 1. No large vessel stenosis or occlusion. 2. Known sellar/suprasellar mass extending to the right cavernous sinus with enhancing thickened infundibulum as seen on comparison MRI. IMPRESSION: No stenosis or occlusion. REFERENCES: NASCET CRITERIA. The degree of stenosis in the cervical segment of the internal carotid artery is based on NASCET criteria. Normal is no stenosis. Mild is less than 50% stenosis. Moderate is 50-69% stenosis. Severe is 70% to 99% stenosis. Total occlusion is no detectable patent lumen.
--- NOTE | 2025-02-15 22:56 | CTR_ITS ---
PROCEDURE INFORMATION: Exam: CT Head Without Contrast Exam date and time: 02/16/2025 12:11 AM Age: 69 years old Clinical indication: Other: Stroke like symptoms; Prior surgery; Surgery date: 6+ months; Surgery type: Pituitary tumor removed; Additional info: Stroke like symptoms, difficulty finding words TECHNIQUE: Imaging protocol: Computed tomography of the head without contrast. Radiation optimization: All CT scans at this facility use at least one of these dose optimization techniques: automated exposure control; mA and/or kV adjustment per patient size (includes targeted exams where dose is matched to clinical indication); or iterative reconstruction. COMPARISON: 1. CT head wo con* [id number] 10/15/2024 1:42 PM 2. MR pituitary wo/w con* [id number] 12/25/2024 11:24 AM RADIATION DOSE METRICS: Total DLP (mGy-cm): 1124.1 FINDINGS: Brain: No hemorrhage. No evidence of acute territorial infarct. Mild bilateral cerebral white matter hypoattenuation likely on the basis of chronic microvascular ischemic change. 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 Cerebral ventricles: No hydrocephalus. Paranasal sinuses: Visualized sinuses are unremarkable. No fluid levels. Mastoid air cells: Visualized mastoid air cells are well aerated. Orbital cavities: Bilateral lens replacement. Bones: Unremarkable. No acute fracture. Soft tissues: Unremarkable. CT/CT head wo con* [id number] IMPRESSION: 1. No acute intracranial findings. 2. 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
--- NOTE | 2025-02-15 22:56 | XRR_ITS ---
PROCEDURE INFORMATION: Exam: XR Chest Exam date and time: 02/15/2025 11:06 PM Age: 69 years old Clinical indication: Other: Stroke like symptoms TECHNIQUE: Imaging protocol: Radiologic exam of the chest. Views: 1 view. COMPARISON: CR XR chest 1V portable [id number] 12/10/2024 10:33 PM FINDINGS: Lungs: Unremarkable. No consolidation. Pleural spaces: Unremarkable. No pleural effusion. No pneumothorax. Heart/Mediastinum: Unremarkable. No cardiomegaly. Bones/joints: Degenerative changes along the spine and shoulders. XR/XR chest 1V portable [id number] IMPRESSION: No acute findings.
--- NOTE | 2025-02-15 23:03 | ECG_ITS ---
[facility] Test Date: 2025-02-15 Pat Name: Ambika Nichols Department: Room: Gender: Female Gas Producer: : 1955 Requested By: Frankie Geronimo Order Number: [id number] Hunter MD: Mane Blake M.D. Measurements Intervals [place] Rate: 69 P: -55 AR: 131 QRS: -4 QRSD: 90 T: 52 QT: 409 QTc: 441 Interpretive Statements ECTOPIC ATRIAL RHYTHM LEFT VENTRICULAR HYPERTROPHY AND ST-T CHANGE [VOLTAGE CRITERIA PLUS ST/T ABNORMALITY] Compared to ECG 12/11/2024 05:24:02 Ectopic atrial rhythm now present Left ventricular hypertrophy now present ST (T wave) deviation now present Sinus rhythm no longer present Electronically Signed On 02-16-2025 11:34:40 CDT by Mane Blake M.D. [email or web address]
[2025-02-15 23:43] LABS: Basophils # 0.1 10^3/uL (0.0-0.1); Basophils % 0.6 %; Eosinophils # 0.2 10^3/uL (0.0-0.8); Eosinophils % 2.8 %; Hematocrit 45.6 % (36-47); Lymphocytes # 2.2 10^3/uL (0.8-4.8); Lymphocytes % 26.4 %; Mean Corpuscular HGB Conc 31.8 g/dL (30-55); Mean Corpuscular Hemoglobin 26.8 pg (27-33); Mean Corpuscular Volume 84.3 fl (85-98); Mean Platelet Volume 9.1 fL (7.4-10.4); Monocytes # 0.8 10^3/uL (0.2-0.9); Neutrophils # 5.07 10^3/uL (1.8-7.7); Neutrophils % 60.8 %; Nucleated Red Blood Cells % 0 %; Platelet Count 185 10^3/cmm (157-399); Red Blood Count 5.41 10^6/uL (3.85-5.65); Red Cell Distribution Width 16.2 % (12.1-15.1); White Blood Count 8.33 10^3/uL (3.29-11.43)
[2025-02-15 23:59] LABS: Alanine Aminotransferase 23 U/L (0-33); Alkaline Phosphatase 126 U/L (35-105); Anion Gap 16.8 (5-19); Aspartate Amino Transferase 23 U/L (0-32); Blood Urea Nitrogen 33 mg/dL (8-23); Calcium 9.6 mg/dL (8.5-10.5); Carbon Dioxide 24 mmol/L (22-29); Chloride 101 mmol/L (98-107); Creatinine Clr Calc Pharmacy 37.3142; Globulin 3.7 g/dL (1.3-4.6); Glucose 147 mg/dL (65-115); Osmolality Calculated 294 mOsm/kg (285-295); Potassium 4.8 mmol/L (3.5-5.1); Sodium 137 mmol/L (136-145); Total Bilirubin 0.4 mg/dL (0.15-1.2); Total Protein 7.7 g/dL (6.6-8.7)
[2025-02-16] VITALS (14 sets, daily range): BP systolic 100–195; BP diastolic 55–93; PULSE 69–86; RESP 16–18; TEMP 36.6–37.2; O2SAT 92–100; BMI 26.6
--- NOTE | 2025-02-16 00:10 | W.ED.GENADLT ---
HPI - General Adult General: Chief complaint: General Medical Stated complaint: Loosing thought Process Time Seen by Provider: 02/15/25 22:56 History of Present Illness: Patient is a generally well-appearing 69-year-old female with past history of atrial fibrillation on Xarelto who also has a history of pituitary tumor which was resected 11 years ago but has recurred and is causing vision symptoms as it presses on the optic chiasm. She is already seen by neurosurgery and was told to wait a year at her last visit to see if the tumor continues to grow. Today prior to arrival in the emergency department she had an episode where her right arm became tingly and numb and she was able to speak. Someone called her on the phone but she could not respond that she had to just hang up the phone. Both the right arm paresthesia and speech disruption spontaneously passed in roughly 30 minutes and she is back to baseline with no neurologic symptoms at the time of my exam. She continues to take her Xarelto but does not take aspirin. She has never had ultrasound of the carotids nor does she remember undergoing echocardiogram. She denies antecedent or concomitant headache and has no new vision changes or other paresthesias. She has no other acute complaints. Related Data Home Medications ?Medication ?Instructions ?Recorded ?Confirmed hydrochlorothiazide 12.5 mg tablet 12.5 mg PO QAM 10/15/24 02/15/25 Held on 12/14/24. Instructions: Resume on 12/28/24. Hold until see you see primary care Previous Rx's ?Medication ?Instructions ?Recorded amlodipine 10 mg tablet 10 mg PO DAILY 90 days #90 tabs 04/23/24 Held on 12/17/24. Instructions: low BP desvenlafaxine succinate 50 mg 50 mg PO DAILY 90 days #90 tabs 04/23/24 tablet,extended release 24 hr (Pristiq) empagliflozin 25 mg tablet 25 mg PO DAILY 90 days #90 tabs 04/23/24 (Jardiance) lisinopril 40 mg tablet 40 mg PO DAILY 90 days #90 tabs 04/23/24 metoprolol succinate 50 mg 50 mg PO DAILY 90 days #90 tabs 04/23/24 tablet,extended release 24 hr pravastatin 40 mg tablet 40 mg PO DAILY 90 days #90 tabs 04/23/24 rivaroxaban 20 mg tablet (Xarelto) 20 mg PO DAILY 90 days #90 tabs 04/23/24 Held on 12/14/24. Instructions: Resume on 01/11/25. Hold until you see general surgery tramadol 50 mg tablet 50 mg PO QID PRN pain 7 days #28 05/26/24 tabs levothyroxine 88 mcg tablet 88 mcg PO DAILY 90 days #90 tabs 09/03/24 blood-glucose sensor (Dexcom G6 #3 ea 10/19/24 Sensor device) blood-glucose transmitter (Dexcom #1 ea 10/19/24 G6 Transmitter device) blood-glucose,properties supervisor,cont #1 ea 10/19/24 (Dexcom G6 Neurological Surgery Teacher) ondansetron 8 mg disintegrating 8 mg PO Q6H #14 tabs 10/20/24 tablet blood sugar diagnostic (Blood #50 ea 12/09/24 Glucose Test strips) blood-glucose meter #1 ea 12/09/24 lancets 32 gauge (E-Z Ject Lancets) #100 ea 12/09/24 insulin degludec 100 unit/mL (3 25 unit (0.25 mL) SUBCUT QAM #15 mL 12/14/24 mL) subcutaneous pen (Tresiba FlexTouch U-100 insulin) baclofen 5 mg tablet 5 mg PO BID PRN muscle spasm #60 02/15/25 tabs Allergies Allergy/AdvReac Type Severity Reaction Status Date / Time No Known Allergies Allergy Verified 02/15/25 21:00 [facility] PFSH: Medical History Pancreatic mass A-fib Hyperlipidemia Thrombocytopenia Hyperglycemia Vomiting CKD (chronic kidney disease) Diabetic neuropathy Esophageal thickening Elevated troponin Anemia Acute kidney injury Menopausal symptoms Relates she takes antidepressant for this DJD (degenerative joint disease) Hypothyroidism Pituitary tumor s/p post surgery at [facility] 2019? Hypertension DM type 2 (diabetes mellitus, type 2) Surgical History History of hysterectomy History of H/O pituitary neoplasm Status post resection Family History Other CAD (coronary artery disease) Social History Smoking and tobacco/nicotine status: never used tobacco/nicotine Second hand smoke exposure: No Alcohol intake: never Substance/Drug Use: never Female Reproductive History: Spontaneous abortions: No Physical Exam Const: COMMON NORMALS: no acute distress, patient oriented x3 and alert HENMT: COMMON NORMALS: normocephalic and atraumatic HEAD & SCALP: normocephalic and atraumatic Eye: COMMON NORMALS: Equal, round and reactive pupils present, EOMs intact bilaterally and no scleral icterus PUPIL: Yes Equal, round and reactive pupils present Resp: COMMON NORMALS: normal respiratory effort and No retractions Cardio: COMMON NORMALS: regular rate and No murmurs present (Cardio) RATE: regular rate OTHER: Irregularly irregular rhythm. GI: COMMON NORMALS: Normal to inspection, nondistended, normoactive bowel sounds present, Soft to palpation and non-tender PALPATION: Yes Soft to palpation Neuro: COMMON NORMALS: patient oriented x3 SENSORIUM/ORIENTATION: Yes alert OTHER: NIH stroke scale performed with score being 0 as all symptoms have completely resolved at time of my exam Skin: COMMON NORMALS: no rashes or lesions noted GENERAL SKIN EXAM: no rashes or lesions noted Course Vital Signs: Vital signs: Vital Signs Temperature 96.9 F L 02/15/25 20:55 Pulse Rate 76 02/16/25 01:01 Respiratory Rate 16 02/16/25 01:01 Blood Pressure 144/73 02/16/25 00:00 Pulse Oximetry 94 02/16/25 01:01 Oxygen Delivery Me thod Room Air 02/16/25 01:01 [facility] - General Adult Medical Decision Making In summary, patient is a generally well-appearing 69-year-old female who had a transient episode of inability to speak which came on at the same time as she had right arm paresthesias. The symptoms all resolved spontaneously prior to arrival in the emergency department. CTA of the head and neck show no acute process. She does have atrial fibrillation and was recently taken off of her Xarelto because of a GI bleed but is currently taking her anticoagulation medication. My concern is that she may have had a TIA. I spoke with on-call neurology who recommends admission and further workup with MRI, ultrasound of the carotids, and echocardiogram. Patient is agreeable to the plan and will be admitted in stable condition Lab Data 02/15/25 23:33 02/15/25 23:33 Radiology Impressions Chest X-Ray 02/15/25 22:56 IMPRESSION: No acute findings. Head CT 02/15/25 22:56 IMPRESSION: 1. No acute intracranial findings. 2. 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 Head/Neck CTA 02/15/25 22:56 IMPRESSION: 1. No large vessel stenosis or occlusion. 2. Known sellar/suprasellar mass extending to the right cavernous sinus with enhancing thickened infundibulum as seen on comparison MRI. IMPRESSION: No stenosis or occlusion. REFERENCES: NASCET CRITERIA. The degree of stenosis in the cervical segment of the internal carotid artery is based on NASCET criteria. Normal is no stenosis. Mild is less than 50% stenosis. Moderate is 50-69% stenosis. Severe is 70% to 99% stenosis. Total occlusion is no detectable patent lumen. ADDENDUM: 02/16/25 0129 The findings were acknowledged to be understood at 1:25 AM CDT on 02/16/2025, via the OPS team, by KAIDEN TAN. Laboratory Results WBC 8.33 10^3/uL (3.29-11.43) 02/15/25 23:33 RBC 5.41 10^6/uL (3.85-5.65) 02/15/25 23:33 Hgb 14.50 g/dL (11.27-16.99) 02/15/25 23:33 Hct 45.6 % (36-47) 02/15/25 23:33 MCV 84.3 fl (85-98) L 02/15/25 23:33 MCH 26.8 pg (27-33) L 02/15/25 23:33 MCHC 31.8 g/dL (30-55) 02/15/25 23:33 RDW 16.2 % (12.1-15.1) H 02/15/25 23:33 Plt Count 185 10^3/cmm (157-399) 02/15/25 23:33 MPV 9.1 fL (7.4-10.4) 02/15/25 23:33 Neut % (Auto) 60.8 % 02/15/25 23:33 Lymph % (Auto) 26.4 % 02/15/25 23:33 [place] % (Auto) 9.0 % 02/15/25 23:33 Eos % (Auto) 2.8 % 02/15/25 23: Baso % (Auto) 0.6 % 02/15/25 23:33 Neut # (Auto) 5.07 10^3/uL (1.8-7.7) 02/15/25 23:33 Lymph # (Auto) 2.2 10^3/uL (0.8-4.8) 02/15/25 23:33 [place] # (Auto) 0.8 10^3/uL (0.2-0.9) 02/15/25 23: Eos # (Auto) 0.2 10^3/uL (0.0-0.8) 02/15/25 23: Baso # (Auto) 0.1 10^3/uL (0.0-0.1) 02/15/25 23: Nucleated RBC % (auto) 0 % 02/15/25 23: Nucleated RBCs # 0.0 /100WBC 02/15/25 23:33 Sodium 137 mmol/L (136-145) 02/15/25 23: Potassium 4.8 mmol/L (3.5-5.1) 02/15/25 23: Chloride 101 mmol/L (98-107) 02/15/25 23: Carbon Dioxide 24 mmol/L (22-29) 02/15/25 23:33 Anion Gap 16.8 (5-19) 02/15/25 23:33 BUN 33 mg/dL (8-23) H 02/15/25 23:33 Creatinine 1.5 mg/dL (0.5-0.9) H 02/15/25 23:33 GFR Calculation Not Reportable 02/15/25 23: Glucose 147 mg/dL (65-115) H 02/15/25 23:33 Calculated Osmolality 294 mOsm/kg (285-295) 02/15/25 23:33 Calcium 9.6 mg/dL (8.5-10.5) 02/15/25 23:33 Total Bilirubin 0.4 mg/dL (0.15-1.2) 02/15/25 23: AST 23 U/L (0-32) 02/15/25 23:33 ALT 23 U/L (0-33) 02/15/25 23:33 Alkaline Phosphatase 126 U/L (35-105) H 02/15/25 23:33 Total Protein 7.7 g/dL (6.6-8.7) 02/15/25 23:33 Albumin 4.0 g/dL (3.5-5.2) 02/15/25 23:33 Globulin 3.7 g/dL (1.3-4.6) 02/15/25 23:33 All radiology interpretation(s) finalized by discharge EKG Data EKG 1: Interpretation: Time?2303?atrial fibrillation, rate of 69, no ST segment elevation or depression, intervals within normal limits. QTc = 429 Computer generated interpretation: Chest X-Ray 02/15/25 22:56 IMPRESSION: No acute findings. Head CT 02/15/25 22:56 IMPRESSION: 1. No acute intracranial findings. 2. 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 Head/Neck CTA 02/15/25 22:56 IMPRESSION: 1. No large vessel stenosis or occlusion. 2. Known sellar/suprasellar mass extending to the right cavernous sinus with enhancing thickened infundibulum as seen on comparison MRI. IMPRESSION: No stenosis or occlusion. REFERENCES: NASCET CRITERIA. The degree of stenosis in the cervical segment of the internal carotid artery is based on NASCET criteria. Normal is no stenosis. Mild is less than 50% stenosis. Moderate is 50-69% stenosis. Severe is 70% to 99% stenosis. Total occlusion is no detectable patent lumen. ADDENDUM: 02/16/25 0129 The findings were acknowledged to be understood at 1:25 AM CDT on 02/16/2025, via the OPS team, by KAIDEN TAN. Discharge Plan Discharge Patient Disposition: Admitted As Inpatient Clinical Impression: Stroke-like symptoms Condition: Stable Coding Level of Care Code ED Plum Packer for Chintan Persaud
--- NOTE | 2025-02-16 04:59 | USCV_ITS ---
Ambika Nichols Age: 69 Gender: F : 1955 Exam Date: 02/16/2025 18:28 Ordering Phys: Joanne Lomas MD Technologist: VENKATA Exam Location: [facility] – [place] Indication: acute stroke - RIGHT hemiparesis BP: 192 / 93 HR: 76 Rhythm: Sinus Technical Quality: Adequate MEASUREMENTS (Male / Female) Normal Values 2D ECHO LV Diastolic Diameter PLAX 2.9 cm 4.2 - 5.9 / 3.9 - 5.3 cm IVS Diastolic Thickness 1.5 cm 0.6 - 1.0 / 0.6 - 0.9 cm IVS Systolic Thickness 1.4 cm LVPW Diastolic Thickness 1.2 cm 0.6 - 1.0 / 0.6 - 0.9 cm LVPW Systolic Thickness 1.6 cm LVOT Diameter 1.7 cm LV Ejection Fraction 2D Teich 56.5 % LV Ejection Fraction MOD 4C 55.7 % LV Ejection Fraction MOD 2C 43.8 % LV Ejection Fraction 2C AL 42.2 % LA Diameter 3.9 cm LA Sys Volume AL 109.9 cm cubed LA Sys Volume Index AL 57.1 cm cubed/m squared Aorta at Sinotubular Diameter 2.9 cm IVC Diameter 1.9 cm M-MODE LA Ao Ratio MM 1.5 AV Cusp Separation MM 1.5 cm DOPPLER AV Peak Velocity 114.0 cm/s LVOT Peak Velocity 106.0 cm/s AV Area Cont Eq vti 2.5 cm squared AV Area Cont Eq pk 2.1 cm squared MV Peak Velocity 105.0 cm/s MV Area PHT 1.9 cm squared Mitral E to A Ratio 0.5 TV Peak Velocity 236.5 cm/s TR Peak Velocity 251.0 cm/s TR Peak Gradient 25.2 mmHg TV Peak E Velocity 39.0 cm/s PV Peak Velocity 100.0 cm/s FINDINGS Left Ventricle Normal left ventricular size, systolic function and wall thickness, with no regional wall motion abnormalities. Left ventricular ejection fraction is estimated at 55 %. There appeared to be eccentric hypertrophy of the mid septum.Grade I/IV diastolic dysfunction (abnormal relaxation filling pattern), normal to mildly elevated filling pressures. Right Ventricle The right ventricle is normal in size and function. Right Atrium The right atrium is normal in size. Left Atrium Moderately increased left atrial size. Mitral Valve Structurally normal mitral valve without significant stenosis or prolapse. There is no mitral regurgitation. Aortic Valve Moderate aortic valve calcification. No aortic valve stenosis. Trace aortic valve regurgitation. Tricuspid Valve Structurally normal tricuspid valve without significant stenosis or regurgitation. Pulmonary artery systolic pressure is normal. Pulmonic Valve Structurally normal pulmonic valve without significant stenosis. There is no pulmonic regurgitation. Pericardium Normal pericardium without effusion. Aorta Normal ascending aorta dimension. IVC The inferior vena cava appears normal. CONCLUSIONS Normal left ventricular size, systolic function and wall thickness, with no regional wall motion abnormalities. Left ventricular ejection fraction is estimated at 55 %. There appeared to be eccentric hypertrophy of the mid septum.Grade I/IV diastolic dysfunction (abnormal relaxation filling pattern), normal to mildly elevated filling pressures. There is no pericardial effusion. No significant valve abnormalities. Right atrial pressure is around 5 mm of mercury. Cori Sloan MD (Electronically Signed) Final Date: 16 February 2025 21:31 S
--- NOTE | 2025-02-16 05:02 | MR_ITS ---
WS: [id number]GIOGRAPHY [place] [facility] [place] HISTORY: Strokelike symptoms COMPARISON: CT angiogram 02/16/2025 TECHNIQUE: 3-D MR angiography is performed of the [place]. All images are reviewed including source images. Distal vertebral and basilar arteries are intact with no significant stenosis or plaque. Posterior cerebral arteries are normal course and caliber. Posterior communicating arteries are both patent. Intracranial portion of the internal carotid arteries are normal course and caliber. No significant atherosclerosis, stenosis or aneurysm identified. Middle and anterior cerebral arteries are both patent with no significant disease. Questionable minimal paucity of vessels in the distal LEFT middle cerebral artery, third division. No thrombus identified. Anterior communicating artery is also normal. Patient has a known large suprasellar mass which is contacting the RIGHT supraclinoid carotid artery but not obstructing it. MR/MR angio head wo con [id number] IMPRESSION: 1. No central or large vessel thrombus identified. 2. Questionable paucity of vessels in the distal LEFT MCA territory, distal to the M2 division. 3. No aneurysm.
[2025-02-16] MEDS: pantoprazole 40 mg SDV IVP ×3 (05:51→19:30)
[2025-02-16] MEDS: sodium chloride 0.9% 1,000 ML 75 ML IV ×2 (05:56→17:02)
[2025-02-16 06:12] LABS: Basophils # 0.1 10^3/uL (0.0-0.1); Basophils % 0.6 %; Eosinophils # 0.2 10^3/uL (0.0-0.8); Eosinophils % 2.2 %; Hematocrit 37.8 % (36-47); Lymphocytes # 2.7 10^3/uL (0.8-4.8); Mean Corpuscular HGB Conc 32.3 g/dL (30-55); Mean Corpuscular Hemoglobin 27.1 pg (27-33); Mean Corpuscular Volume 83.8 fl (85-98); Mean Platelet Volume 9.6 fL (7.4-10.4); Monocytes % 10.8 %; Neutrophils # 5.29 10^3/uL (1.8-7.7); Neutrophils % 57.2 %; Nucleated Red Blood Cells % 0 %; Platelet Count 175 10^3/cmm (157-399); Red Blood Count 4.51 10^6/uL (3.85-5.65); Red Cell Distribution Width 15.7 % (12.1-15.1); White Blood Count 9.25 10^3/uL (3.29-11.43)
[2025-02-16 06:30] LABS: Alanine Aminotransferase 16 U/L (0-33); Albumin Level 3.2 g/dL (3.5-5.2); Alkaline Phosphatase 97 U/L (35-105); Anion Gap 15.3 (5-19); Aspartate Amino Transferase 16 U/L (0-32); Blood Urea Nitrogen 34 mg/dL (8-23); Calcium 8.9 mg/dL (8.5-10.5); Carbon Dioxide 23 mmol/L (22-29); Chloride 103 mmol/L (98-107); Cholesterol 177 mg/dL (0-200); Creatinine Clr Calc Pharmacy 34.9821; Globulin 2.9 g/dL (1.3-4.6); Glucose 95 mg/dL (65-115); HDL Cholesterol 29 mg/dL (60-100); LDL Cholesterol Calculated 86 mg/dL (50-129); LDL HDL Ratio 2.97 RATIO (0.00-3.22); Magnesium 2.2 mg/dL (1.7-2.3); Osmolality Calculated 291 mOsm/kg (285-295); Phosphorus 4.2 mg/dL (2.5-4.5); Potassium 4.3 mmol/L (3.5-5.1); Sodium 137 mmol/L (136-145); Total Bilirubin 0.3 mg/dL (0.15-1.2); Total Protein 6.1 g/dL (6.6-8.7); Triglycerides 312 mg/dL (0-150)
--- NOTE | 2025-02-16 06:55 | PC.NURSE ---
ASSUMED CARE OF PATIENT AT 0655 FROM PADMINI CRANDALL.
--- NOTE | 2025-02-16 07:32 | PM.HP ---
Providers/Chief Complaint Admitting Physician: Joanne Lomas MD----patient seen after 12 midnight Primary Care Provider: Marcia Flannery MD Chief Complaint: Losing thought Process History of Present Illness Ambika Nichols is a 69 year old female with medical history significant for atrial fibrillation on Xarelto. Patient had 30 minutes of a right arm weakness and this neurological finding resolved almost immediately prior to patient being seen in the emergency room. Emergency room doctor Dr. Arana did consult neurology who related that patient gets MRI and echocardiogram and no aspirin. And this was followed through according to neurology recommendation. Patient is observation admission stay. Review of Systems Narrative: System review upon tenogram reviewed and essentially unremarkable Medications/Allergies Home Medications ?Medication ?Instructions ?Recorded ?Confirmed ?Last Taken ?Type amlodipine 10 mg tablet 10 mg PO DAILY 90 days #90 tabs 04/23/24 02/15/25 10/14/24 Rx Held on 12/17/24. Instructions: low BP desvenlafaxine succinate 50 mg 50 mg PO DAILY 90 days #90 tabs 04/23/24 02/15/25 10/14/24 Rx tablet,extended release 24 hr (Pristiq) empagliflozin 25 mg tablet 25 mg PO DAILY 90 days #90 tabs 04/23/24 02/15/25 10/14/24 Rx (Jardiance) lisinopril 40 mg tablet 40 mg PO DAILY 90 days #90 tabs 04/23/24 02/15/25 10/14/24 Rx metoprolol succinate 50 mg 50 mg PO DAILY 90 days #90 tabs 04/23/24 02/15/25 10/14/24 Rx tablet,extended release 24 hr pravastatin 40 mg tablet 40 mg PO DAILY 90 days #90 tabs 04/23/24 02/15/25 10/14/24 Rx rivaroxaban 20 mg tablet (Xarelto) 20 mg PO DAILY 90 days #90 tabs 04/23/24 02/15/25 10/14/24 Rx Held on 12/14/24. Instructions: Resume on 01/11/25. Hold until you see general surgery tramadol 50 mg tablet 50 mg PO QID PRN pain 7 days #28 05/26/24 02/15/25 Unknown Rx tabs levothyroxine 88 mcg tablet 88 mcg PO DAILY 90 days #90 tabs 09/03/24 02/15/25 10/14/24 Rx hydrochlorothiazide 12.5 mg tablet 12.5 mg PO QAM 10/15/24 02/15/25 10/14/24 History Held on 12/14/24. Instructions: Resume on 12/28/24. Hold until see you see primary care blood-glucose sensor (Dexcom G6 #3 ea 10/19/24 02/15/25 Unknown Rx Sensor device) blood-glucose transmitter (Dexcom #1 ea 10/19/24 02/15/25 Unknown Rx G6 Transmitter device) blood-glucose,director of religious life,cont #1 ea 10/19/24 02/15/25 Unknown Rx (Dexcom G6 Manufacturing Development Engineer) ondansetron 8 mg disintegrating 8 mg PO Q6H #14 tabs 10/20/24 02/15/25 Unknown Rx tablet blood sugar diagnostic (Blood #50 ea 12/09/24 02/15/25 Unknown Rx Glucose Test strips) blood-glucose meter #1 ea 12/09/24 02/15/25 Unknown Rx lancets 32 gauge (E-Z Ject Lancets) #100 ea 12/09/24 02/15/25 Unknown Rx insulin degludec 100 unit/mL (3 25 unit (0.25 mL) SUBCUT QAM #15 mL 12/14/24 02/15/25 Unknown Rx mL) subcutaneous pen (Tresiba FlexTouch U-100 insulin) baclofen 5 mg tablet 5 mg PO BID PRN muscle spasm #60 02/15/25 02/15/25 Unknown Rx tabs Allergies Allergy/AdvReac Type Severity Reaction Status Date / Time No Known Allergies Allergy Verified 02/15/25 21:00 PFSH Acute PFSH: Medical History Pancreatic mass A-fib Hyperlipidemia Thrombocytopenia Hyperglycemia Vomiting CKD (chronic kidney disease) Diabetic neuropathy Esophageal thickening Elevated troponin Anemia Acute kidney injury Menopausal symptoms Relates she takes antidepressant for this DJD (degenerative joint disease) Hypothyroidism Pituitary tumor s/p post surgery at [facility] 2019? Hypertension DM type 2 (diabetes mellitus, type 2) Surgical History History of hysterectomy History of H/O pituitary neoplasm Status post resection Family History Other CAD (coronary artery disease) Social History Smoking and tobacco/nicotine status: never used tobacco/nicotine Second hand smoke exposure: No Alcohol intake: never Substance/Drug Use: never Female Reproductive History: Spontaneous abortions: No Vitals/I&O/Wt Last Vital Signs Temp 96.9 F L 02/15/25 20:55 Pulse 75 02/16/25 07:07 Resp 16 02/16/25 06:09 BP 103/55 02/16/25 07:07 Pulse Ox 97 02/16/25 07:07 O2 Del Method Room Air 02/16/25 06:09 Weight last 48 hrs Weight 79.379 kg Physical Exam Narrative: Generally patient looks well in no apparent distress actually. The and no focal weakness HEENT?normocephalic atraumatic Neck?neck is supple Chest?lungs are clear has good breath sounds Abdomen?soft nontender nondistended has good bowel sounds unremarkable Extremities?intact no edema has good pulses Neurology?nonfocal Data 02/16/25 05:45 02/16/25 05:45 A&P Assessment and plan (1) Stroke-like symptoms: TIA evaluate for CVA - Patient admitted to general medical floor with telemetry - CT of the head CTA of the head and neck done no involvement of large vessels - Neurology consulted by emergency room doctor and recommendation from the neurology is not to give aspirin but to continue patient home Xarelto for her atrial fibrillation - Continue statins - Follow up on ordered MRI and echocardiogram (2) A-fib: - Continue patient Xarelto - Continue patient rate controlling medications such as beta-joe - Neurology on case - This is an observation admission (3) DM type 2 (diabetes mellitus, type 2): Keep patient euglycemic Sliding scale insulin and avoid oral hypoglycemic agents while n.p.o. Plan [place] with dehydration-gentle hydration with normal saline PDMP PDMP Reviewed: Not Reviewed Attestations Medical Necessity Statement*: Patient has a TIA workup for stroke in progress and patient meets observation admission at this time I attest for a 23-hour stay in the hospital Coding Level of Care Code 61775 Diagnoses Stroke-like symptoms R29.90 Paroxysmal atrial fibrillation I48.0 Atrial fibrillation type: paroxysmal Type 2 diabetes mellitus without complication, with long-term current use of insulin E11.9; Z79.4 Diabetes mellitus peoplesoft programmer insulin use: with prison use Diabetes mellitus complication status: without complication Time Spent (min) 60
--- NOTE | 2025-02-16 07:40 | PC.NURSE ---
PATIENT OFF UNIT TO MRI AT 0737.
--- NOTE | 2025-02-16 08:07 | PC.NURSE ---
PT BACK FROM MRI.
[2025-02-16 08:16] LABS: Glucose Point of Care 99 mg/dL (70-110)
[2025-02-16] MEDS: rivaroxaban 10 mg Tablet 20 MG PO (08:54)
[2025-02-16] MEDS: sucralfate 1 gm/10 mL Oral Liq UDC PO ×2 (08:55→19:30)
[2025-02-16] MEDS: metoprolol succinate ER (24 HR) 50 mg Tablet PO (08:55)
--- NOTE | 2025-02-16 09:30 | P.CONIM_ITS ---
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 On 02/15/2025 the patient presented to the [facility] emergency department reporting an episode of difficulty speaking with right sided weakness and right-sided numbness involving her face arm and leg that resolved in the emergency department. Noncontrast head CT was performed as well as CT angiogram of the head and neck on 02/15/2025. Head CT revealed no acute findings there was report of the pituitary tumor. CT angiogram of the head and neck revealed no large vessel occlusion. NIH stroke score =0. Serum glucose 147. On 02/16/2025 the patient was reported to have another episode of right facial numbness, difficulty speaking and right sided numbness which lasted for approximately 20 seconds and resolved. Point of contact glucose Accu-Chek 99. Repeat NIH stroke score = 0 on 02/16/2025 at approximately 9:15 AM. MRA of the head 03/15/2025 Questionable paucity of vessels in the distal LEFT MCA territory, distal to the M2 division. MRI of the pituitary gland with and without contrast 12/25/2024 IMPRESSION: 1. Large enhancing lobulated sellar/suprasellar mass predominantly to the RIGHT of midline. Mass measures 2.0 cm AP x 2.4 cm transverse x 2.4 cm in length extending along the clivus. Mass encases the RIGHT cavernous carotid artery without occlusion. Nodular enhancement along the infundibulum consistent with tumor extension. Mass is extending also towards the orbital apex. Recommend evaluation by ENT. This is most consistent with pituitary macroadenoma. By history patient had prior pituitary mass surgically excised. 2. No acute infarct. 3. No additional masses. The patient currently is without complaints. Patient stated that the neurosurgeon in [facility] wanted to reevaluate her pituitary tumor in approximately 1 year. Drug allergies: None Current medications: Xarelto 20 mg p.o. daily for atrial fibrillation Norvasc 10 mg p.o. daily Baclofen 5 mg p.o. twice daily as needed Desvenlafaxine ER 50 mg p.o. daily Empagliflozin 25 mg p.o. daily Hydrochlorothiazide 12.5 mg p.o. daily Tresiba insulin 25 units subcutaneously every morning Synthroid 88 mcg p.o. daily Lisinopril 40 mg p.o. daily Metoprolol ER 50 mg p.o. daily Zofran 8 mg p.o. every 6 hours Pravastatin 40 mg p.o. daily Tramadol 50 mg p.o. 4 times daily as needed Past medical history: Pituitary macroadenoma addressed by neurosurgery in [facility] Atrial fibrillation treated with Xarelto Hypothyroidism Type 2 diabetes mellitus Pancreatic mass Hyperlipidemia Ramesh's esophagus Gastroesophageal reflux disease COVID-19 Anemia Hypertension Lumbar radiculopathy Degenerative disc disease of the lumbar spine Chronic neck and back pain Lumbar stenosis with neurogenic claudication Habits: None Family history: Negative for strokes Social history: Patient lives with her Review of Systems 2 General: Reports: 10 or more systems reviewed and unremarkable except in HPI and below Medications/Allergies Home Medications ?Medication ?Instructions ?Recorded ?Confirmed ?Last Taken ?Type amlodipine 10 mg tablet 10 mg PO DAILY 90 days #90 t abs 04/23/24 02/15/25 10/14/24 Rx Held on 12/17/24. Instructions: low BP desvenlafaxine succinate 50 mg 50 mg PO DAILY 90 days #90 tabs 04/23/24 02/15/25 10/14/24 Rx tablet,extended release 24 hr (Pristiq) empagliflozin 25 mg tablet 25 mg PO DAILY 90 days #90 tabs 04/23/24 02/15/25 10/14/24 Rx (Jardiance) lisinopril 40 mg tablet 40 mg PO DAILY 90 days #90 t abs 04/23/24 02/15/25 10/14/24 Rx metoprolol succinate 50 mg 50 mg PO DAILY 90 days #90 tabs 04/23/24 02/15/25 10/14/24 Rx tablet,extended release 24 hr pravastatin 40 mg tablet 40 mg PO DAILY 90 days #90 t abs 04/23/24 02/15/25 10/14/24 Rx rivaroxaban 20 mg tablet (Xarelto) 20 mg PO DAILY 90 d ays #90 tabs 04/23/24 02/15/25 10/14/24 Rx Held on 12/14/24. Instructions: Resume on 01/11/25. Hold until you see general surgery tramadol 50 mg tablet 50 mg PO QID PRN pain 7 days #28 05/26/24 02/15/25 Unknown Rx tabs levothyroxine 88 mcg tablet 88 mcg PO DAILY 90 days #9 0 tabs 09/03/24 02/15/25 10/14/24 Rx hydrochlorothiazide 12.5 mg tablet 12.5 mg PO QAM 09/1802/15/25 10/14/24 History Held on 12/14/24. Instructions: Resume on 12/28/24. Hold until see you see primary care blood-glucose sensor (Dexcom G6 #3 ea 10/19/24 5 Unknown Rx Sensor device) blood-glucose transmitter (Dexcom #1 ea 10/19/2402/15 Unknown Rx G6 Transmitter device) blood-glucose,cloud automation tester,cont #1 ea 10/19/24 02/15/25 Un known Rx (Dexcom G6 Tray Server) ondansetron 8 mg disintegrating 8 mg PO Q6H #14 tabs 0 10/20/24 02/15/25 Unknown Rx tablet blood sugar diagnostic (Blood #50 ea 12/09/24 02/15/25 Unknown Rx Glucose Test strips) blood-glucose meter #1 ea 12/09/24 02/15/25 Unkn own Rx lancets 32 gauge (E-Z Ject Lancets) #100 ea 12/09/24 0 02/15/25 Unknown Rx insulin degludec 100 unit/mL (3 25 unit (0.25 mL) SUBC UT QAM #15 mL 12/14/24 02/15/25 Unknown Rx mL) subcutaneous pen (Tresiba FlexTouch U-100 insulin) baclofen 5 mg tablet 5 mg PO BID PRN muscle spasm #60 02/15/25 02/15/25 Unknown Rx tabs Allergies Allergy/AdvReac Type Severity Reaction Status Date / Time No Known Allergies Allergy Verified 02/15/25 21:00 Current Medications Generic Name Dose Route Start Last Admin Trade Name Freq PRN Reason Stop Dose Admin Sodium Chloride 1,000 mls @ 75 mls/hr 02/16/25 05:00 02/16/25 05:56 Sodium Chloride 0.9% IV 75 mls/hr .[id number] LIZETT Administration Metoprolol Succinate 50 mg 02/16/25 09:00 02/16/25 08:55 Metoprolol Succinate Er (24 Hr) 50 Mg Tablet PO 50 mg DAILY LIZETT Administration Pantoprazole Sodium 40 mg 02/16/25 08:30 02/16/25 08:55 Pantoprazole 40 Mg Sdv IVP 40 mg Q12H LIZETT Administration Rivaroxaban 20 mg 02/16/25 09:00 02/16/25 08:54 Rivaroxaban 10 Mg Tablet PO 20 mg DAILY LIZETT Administration Sucralfate 1 gm 02/16/25 08:30 02/16/25 08:55 Sucralfate 1 Gm/10 Ml Oral Liq Udc PO 1 gm Q12H LIZETT Administration PFSH Acute 2 PFSH: Medical History Pancreatic mass A-fib Hyperlipidemia Thrombocytopenia Hyperglycemia Vomiting CKD (chronic kidney disease) Diabetic neuropathy Esophageal thickening Elevated troponin Anemia Acute kidney injury Menopausal symptoms Relates she takes antidepressant for this DJD (degenerative joint disease) Hypothyroidism Pituitary tumor s/p post surgery at [facility] 2019? Hypertension DM type 2 (diabetes mellitus, type 2) Surgical History History of hysterectomy History of H/O pituitary neoplasm Status post resection Family History Other CAD (coronary artery disease) Social History Smoking and tobacco/nicotine status: never used tobacco/nicotine Second hand smoke exposure: No Alcohol intake: never Substance/Drug Use: never Female Reproductive History: Spontaneous abortions: No Vitals/I&O/Wt Last Vital Signs Temp 96.9 F L 02/15/25 20:55 Pulse 83 02/16/25 08:59 Resp 16 02/16/25 06:09 BP 116/68 02/16/25 08:59 Pulse Ox 94 02/16/25 08:59 O2 Del Method Room Air 02/16/25 06:09 Weight last 48 hrs Weight 175 lb Physical Exam 2 Narrative: NIH score =0 The patient is alert and oriented x 3. Speech fluent. Head normocephalic. Neck supple. Cranial nerves II through XII intact pupils 3 to 4 mm round reactive to light and accommodation. Extraocular movements intact. Visual machuca full via confrontation. There were no nystagmus. Motor testing 5/5 bilaterally. Deep tendon reflexes revealed plantar responses bilaterally. Sensory examination intact to touch. Throat clear. Lungs clear. Heart atrial fibrillation. Extremities were negative for cyanosis. Data 02/16/25 05:45 02/16/25 05:45 A&P Assessment and plan (1) TIA (transient ischemic attack): Impression: 1. Left cerebral TIA on February 15, 2025 with recurrent symptoms on 02/16/2025 and patient with history of atrial fibrillation 2. Atrial fibrillation treated with Xarelto 3. Pituitary macroadenoma addressed by neurosurgery in [facility] Plan: 1. Agree with resuming Xarelto 2. Agree with obtaining 2D echocardiogram 3. Recommend cardiology evaluation to determine if Xarelto is sufficient to control the patient's atrial fibrillation and TIAs or should patient be tried on alternative anticoagulation with or without aspirin 4. Continue lipid-lowering agent per NIH stroke protocol 5. Neurochecks and vital signs per NIH stroke protocol 6. Stroke education and stroke pamphlet for patient and family 7. Fall precautions 8. Recommend occupational therapy, physical therapy and speech therapy consults PDMP PDMP Reviewed: Not Reviewed Consult Attestations 2 Medical Necessity Statement: The patient was evaluated by neurology for recurrent TIA's Coding Level of Care Code 47414 Diagnoses TIA (transient ischemic attack) G45.9
[2025-02-16 11:08] LABS: Bacteria Urine 4+ /hpf; Hyaline Casts Urine 3.71 /lpf; Squamous Epithelial Cell Urine 0-5 /hpf (0-5); WBC Urine 21-50 /hpf (0-5)
[2025-02-16 11:27] LABS: Glucose Point of Care 85 mg/dL (70-110)
[2025-02-16 11:36] LABS: Add Urine Microscopic? YES; Bilirubin Urine Negative (Negative); Blood Urine Trace (Negative); Glucose Urine UA Negative (Normal); Ketones Urine Negative (Negative); Leukocyte Esterase Urine Trace (Negative); Nitrate Urine Error (Negative); Protein Urine 2+ (Negative); Urine Appearance Clear (CLEAR)
[2025-02-16 11:37] LABS: Specific Gravity, Urine 1.054 (1.005-1.030); UA Slide Review UA Slide Review Perf
[2025-02-16 11:40] LABS: Add Urine Culture? Yes; Urine Color Other (Yellow)
--- NOTE | 2025-02-16 13:38 | P.PN_ITS ---
Subjective 2 Subjective: Patient was seen this morning, she is currently alert oriented x 3, following all commands, does report generalized weakness, no fevers, no chills, no cough, she does report intermittent numbness of her right face, numbness of the right arm, no numbness of the right leg, intermittent slurring of her words, intermittent productive aphasia, currently she is back to normal she tells me but the symptoms have been coming and going throughout the night and into this morning, denies any blurry vision, no focal weakness, no trouble swallowing, no choking, no coughing, she does report chronic history of neck pain, but currently her neck is not bothering her Vitals/I&O/Wt Last Vital Signs Temp 97.8 F 02/16/25 13:37 Pulse 76 02/16/25 13:37 Resp 18 02/16/25 13:37 BP 195/84 02/16/25 13:37 Pulse Ox 94 02/16/25 13:37 O2 Del Method Room Air 02/16/25 13:37 Weight last 48 hrs Weight 77.366 kg Weight 79.379 kg Physical Exam 2 Const: COMMON NORMALS: no acute distress and patient oriented x3 Eye: COMMON NORMALS: Equal, round and reactive pupils present and EOMs intact bilaterally PUPIL: Yes Equal, round and reactive pupils present Neck/C-Spine: COMMON NORMALS: full ROM and no lymphadenopathy Resp: COMMON NORMALS: normal respiratory effort, No retractions, No use of accessory muscles and clear to auscultation bilaterally AUSCULTATION: clear to auscultation bilaterally Cardio: COMMON NORMALS: regular rate, regular rhythm, S1 normal heart sound present and S2 normal heart sound present RATE: regular rate RHYTHM: r egular rhythm HEART SOUNDS: S1 normal heart sound present and S2 normal heart sound present GI: COMMON NORMALS: Normal to inspection, nondistended, normoactive bowel sounds present and non-tender Extremity: COMMON NORMALS: no pedal edema Neuro: COMMON NORMALS: patient oriented x3, CN's II-XII intact bilaterally and moves all extremities Psych: COMMON NORMALS: mental status grossly normal Data 02/16/25 05:45 02/16/25 05:45 A&P Assessment and plan (1) Stroke-like symptoms: TIA symptoms -Intermittent right facial numbness, right upper extremity numbness, word finding difficulty, slurring of her words -Currently NIH stroke scale [address] - CT/CT head wo con* [id number] IMPRESSION: 1. No acute intracranial findings. 2. 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 head cta CT/CT angio headneck* [id number] IMPRESSION: 1. No large vessel stenosis or occlusion. 2. Known sellar/suprasellar mass extending to the right cavernous sinus with enhancing thickened infundibulum as seen on comparison MRI. IMPRESSION: No stenosis or occlusion. MRA head MR/MR angio head wo con [id number] IMPRESSION: 1. No central or large vessel thrombus identified. 2. Questionable paucity of vessels in the distal LEFT MCA territory, distal to the M2 division. 3. No aneurysm - aspirin -atorvastatin - Neurology consulted -resume xarelto - Continue statin (2) A-fib: - Continue patient Xarelto - Continue beta-joe (3) DM type 2 (diabetes mellitus, type 2): -insulin sliding scale (4) TIA (transient ischemic attack): (5) Pituitary tumor: Plan [place] with dehydration-gentle hydration with normal saline UTI -rocephine Hypertension, resume home blood pressure medications Pituitary tumor, CT and MRI findings as above, PDMP PDMP Reviewed: Not Reviewed Attestations 2 Medical Necessity Statement*: Patient requires hospitalization for TIA Diagnoses Stroke-like symptoms R29.90 Paroxysmal atrial fibrillation I48.0 Atrial fibrillation type: paroxysmal Type 2 diabetes mellitus without complication, with long-term current use of insulin E11.9; Z79.4 Diabetes mellitus mcfp insulin use: with middle or intermediate school principal use Diabetes mellitus complication status: without complication TIA (transient ischemic attack) G45.9 Pituitary tumor D49.7
[2025-02-16] MEDS: aspirin 81 mg EC Tablet PO (14:36)
[2025-02-16] MEDS: cefTRIAXone 1,000 mg SDV 1000 MG IVP (14:36)
[2025-02-16] MEDS: hydroCHLOROthiazide 25 mg Tablet 12.5 MG PO (14:36)
[2025-02-16 16:54] LABS: Glucose Point of Care 136 mg/dL (70-110)
[2025-02-16] MEDS: atorvastatin 40 mg Tablet PO (19:31)
[2025-02-16 20:50] LABS: Glucose Point of Care 276 mg/dL (70-110)
[2025-02-16] MEDS: acetaminophen 325 mg Tablet 650 MG PO (22:17)
[2025-02-16] MEDS: baclofen 10 mg Tablet 5 MG PO (22:18)
[2025-02-17] VITALS (9 sets, daily range): BP systolic 98–164; BP diastolic 58–79; PULSE 60–73; RESP 16–18; TEMP 36.6–37; O2SAT 91–99
[2025-02-17 06:00] LABS: Basophils % 0.4 %; Eosinophils # 0.2 10^3/uL (0.0-0.8); Eosinophils % 2.6 %; Lymphocytes # 2.1 10^3/uL (0.8-4.8); Lymphocytes % 27.9 %; Mean Corpuscular HGB Conc 30.8 g/dL (30-55); Mean Corpuscular Hemoglobin 26.6 pg (27-33); Mean Corpuscular Volume 86.3 fl (85-98); Mean Platelet Volume 10.1 fL (7.4-10.4); Monocytes # 0.7 10^3/uL (0.2-0.9); Neutrophils # 4.45 10^3/uL (1.8-7.7); Nucleated Red Blood Cells % 0 %; Platelet Count 126 10^3/cmm (157-399); Red Blood Count 4.17 10^6/uL (3.85-5.65); Red Cell Distribution Width 15.6 % (12.1-15.1); White Blood Count 7.42 10^3/uL (3.29-11.43)
[2025-02-17 06:17] LABS: Glucose Point of Care 237 mg/dL (70-110)
[2025-02-17 06:29] LABS: Anion Gap 16.1 (5-19); Blood Urea Nitrogen 33 mg/dL (8-23); Calcium 8.4 mg/dL (8.5-10.5); Carbon Dioxide 19 mmol/L (22-29); Chloride 105 mmol/L (98-107); Chol HDL Ratio 7.04 mg/dL (0.0-4.40); Cholesterol 176 mg/dL (0-200); Creatinine Clr Calc Pharmacy 31.0211; Glucose 253 mg/dL (65-115); HDL Cholesterol 25 mg/dL (60-100); Osmolality Calculated 298 mOsm/kg (285-295); Potassium 4.1 mmol/L (3.5-5.1); Sodium 136 mmol/L (136-145); Triglycerides 415 mg/dL (0-150)
[2025-02-17 06:30] LABS: Estmated Average Glucose 217; Hemoglobin A1C 9.2 % (4.0-6.0)
[2025-02-17 06:56] LABS: LDL Cholesterol Direct 84 mg/dL (0-100)
[2025-02-17] MEDS: metoprolol succinate ER (24 HR) 50 mg Tablet PO (08:08)
[2025-02-17] MEDS: insulin lispro 100 unit/1 mL SUBCUT ×3 (08:08→17:45)
[2025-02-17] MEDS: levothyroxine 88 mcg Tablet PO (08:08)
[2025-02-17] MEDS: sucralfate 1 gm/10 mL Oral Liq UDC PO (08:08)
[2025-02-17] MEDS: lisinopril 20 mg Tablet 40 MG PO (08:08)
[2025-02-17] MEDS: amlodipine 10 mg Tablet PO (08:08)
[2025-02-17] MEDS: pantoprazole 40 mg SDV IVP ×2 (08:08→20:45)
[2025-02-17] MEDS: aspirin 81 mg EC Tablet PO (08:08)
[2025-02-17] MEDS: rivaroxaban 10 mg Tablet 20 MG PO (08:09)
[2025-02-17] MEDS: desvenlafaxine 50 mg Tablet PO (08:09)
--- NOTE | 2025-02-17 10:15 | PC.CHAP ---
Pastoral Care Encounter/Spiritual Assessment Type of Contact [] Declined vice president of talent acquisition visit [] Patient/Family/Request visit [] Outpatient visit [] Follow-up visit [] Physician referral [] Code/Alert [] Routine visit [] Staff referral [] Actively dying [] Patient sleeping [] Family support [] [] Out of room [] Palliative care [] [x] Receiving care in room [] Pre-surgical visit [] Trauma [] Long length of stay [] ICU visit [] Other: Relational/Emotional Strength [] Patient feels connected with others/family/visitors/staff [] Distress [] Loneliness/isolation [] Abandonment Spirituality of Patient [] Person of Chanda [] Attends Adventist of their Chanda [] Believes in Prayer [] Reads Bible or Confucianist materials [] There are Spiritual issues to be addressed Scrape Gatherer Interventions [] Prayer [] Active listening [] Non-anxious presence [] Spiritual/emotional support [] Crisis/trauma care [] Spiritual counseling [] Bereavement support [] Provided bereavement packet [] Provided Bible/devotional materials [] Provided toy/stuffed animal, coloring book to patient or family member [] Provided Communion [] Anointing/[place] [] Salvation [] Completed spiritual assessment [] Other: Impact on Illness or Injury [] Angry [] Fearful [] Anxious [] Often cries [] Exhaustion [] Unable to work [] Unable to attend rastafari [] Unable to walk/stand [] Unable to read [] Unable to drive [] Unable to eat/drink [] Unable to sleep [] Unable to be with family [] Patient intubated [] Other: Summary Time spent with patient
[2025-02-17 10:42] LABS: Glucose Point of Care 180 mg/dL (70-110)
--- NOTE | 2025-02-17 11:12 | CT_ITS ---
WS: [id number] CT HEAD TECHNIQUE: Noncontrast CT of the head obtained from the skullbase to the vertex. CLINICAL INFORMATION: slur and visual changes COMPARISON: None. DLP: 1069.[address] scans at [facility] use at least one of these dose optimization techniques: automated exposure control; mA and/or kV adjustment per patient size (includes targeted exams where dose is matched to clinical indication); or iterative reconstruction. FINDINGS: No evidence of intracranial hemorrhage or mass effect. Ventricular system and basal cisterns are patent. Moderate small vessel changes with moderate parenchymal volume loss. No extra-axial fluid collections. No evidence of mass or mass effect. Vascular calcification. Stable previously described sellar and suprasellar mass eccentric to the RIGHT. CT/CT head wo con* [id number] IMPRESSION: 1. No evidence of intracranial hemorrhage or mass effect. 2. No acute intracranial findings. 3. No change compared to previous 4. Stable RIGHT sellar and suprasellar mass
--- NOTE | 2025-02-17 13:27 | MR_ITS ---
WS: [id number] MRI BRAIN WITHOUT CONTRAST HISTORY: right quadrantanopia COMPARISON: 12/25/2024 TECHNIQUE: Diffusion imaging, multiplanar T1, T2 and FLAIR imaging obtained. No evidence for acute infarct or hemorrhage. Alva-white matter differentiation is normal. No prior infarct. There is mild volume loss and mild small vessel disease. Ventricles and extra-axial spaces are normal. Reidentified is the known pituitary macroadenoma that is partially encasing the RIGHT cavernous sinus and carotid artery. Thickening and enlargement of the pituitary infundibulum. Normal flow voids of the adjacent carotid arteries. Minimal hippocampal atrophy. Dural venous sinuses and [place] demonstrate no abnormality on this unenhanced studies. Paranasal sinuses: Clear. Mastoid air cells: Normal. Calvarium and scalp: Intact. MR/MR head wo con* [id number] IMPRESSION: 1. Normal diffusion imaging. No acute infarct. 2. Mild volume loss and small vessel disease. 3. Patient has a known, previously described pituitary macroadenoma encasing t he RIGHT carotid artery. 4. No ventriculomegaly.
[2025-02-17] MEDS: cefTRIAXone 1,000 mg SDV 1000 MG IVP (14:48)
[2025-02-17 16:45] LABS: Glucose Point of Care 296 mg/dL (70-110)
--- NOTE | 2025-02-17 16:48 | PM.PN ---
Subjective Subjective: - Patient was examined this morning, she is alert to person to place, to time she follows all commands -Overnight she has had intermittent slurring of her words, right facial numbness, right upper extremity numbness - During our conversation, she has intermittent right facial droop, intermittent slurring her words it last for a few seconds and then disappears - I cannot discern any focal weakness, - Patient's symptoms have persisted beyond 24 hours so I would call the send acute stroke - Patient was not a tPA candidate as she was on Xarelto - Her symptoms do seem to wax and wane specially her intermittent slurring of her words, and right sided facial droop - Will order a stat head CT - Discussed with family to allow permissive hypertension, continue Xarelto will monitor closely as inpatient -She also is complaining of some blurry vision in only right peripheral visual machuca, on examination she has right upper quadrantanopia of her visual machuca, intermittent blurry vision of the right peripheral visual field -Discussed neurochecks, continue aspirin, Xarelto, will allow for permissive hypertension, and clinically monitored - Patient was later seen she is talking on the phone Vitals/I&O/Wt Last Vital Signs Temp 98.0 F 02/17/25 15:21 Pulse 65 02/17/25 15:21 Resp 17 02/17/25 15:21 BP 147/69 02/17/25 15:21 Pulse Ox 96 02/17/25 15:21 O2 Del Method Room Air 02/17/25 15:21 02/17/25 02/17/25 02/17/25 06:59 14:59 22:59 Intake Total 1000 / 2672.5 480 / 480 Balance 1000 / 2672.5 480 / 480 Weight last 48 hrs Weight 78.97 kg Weight 77.366 kg Weight 79.379 kg Physical Exam Const: COMMON NORMALS: no acute distress and patient oriented x3 Eye: COMMON NORMALS: Equal, round and reactive pupils present and EOMs intact bilaterally PUPIL: Yes Equal, round and reactive pupils present OTHER: Right upper quadrant right visual field, unilateral, intermittent blurry vision more on the right peripheral visual field Resp: COMMON NORMALS: normal respiratory effort, No retractions, No use of accessory muscles and clear to auscultation bilaterally AUSCULTATION: clear to auscultation bilaterally Cardio: COMMON NORMALS: regular rate, regular rhythm, S1 normal heart sound present and S2 normal heart sound present RATE: regular rate RHYTHM: regular rhythm HEART SOUNDS: S1 normal heart sound present and S2 normal heart sound present GI: COMMON NORMALS: Normal to inspection, nondistended, normoactive bowel sounds present and non-tender Extremity: COMMON NORMALS: no pedal edema Neuro: COMMON NORMALS: patient oriented x3 Psych: COMMON NORMALS: mental status grossly normal Data 02/17/25 05:12 02/17/25 05:12 Micro: Microbiology 02/16/25 10:53 Urine Culture - Preliminary Urine,Clean Catch Gram Negative Rods A&P Assessment and plan (1) Stroke-like symptoms: Acute CVA as symptoms have persisted beyond 48 hours -Intermittent right facial numbness, right upper extremity numbness, word finding difficulty, slurring of her words - Symptoms continue to come and go, head ct - CT/CT head wo con* [id number] IMPRESSION: 1. No acute intracranial findings. 2. 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 head cta CT/CT angio headneck* [id number] IMPRESSION: 1. No large vessel stenosis or occlusion. 2. Known sellar/suprasellar mass extending to the right cavernous sinus with enhancing thickened infundibulum as seen on comparison MRI. IMPRESSION: No stenosis or occlusion. MRA head MR/MR angio head wo con [id number] IMPRESSION: 1. No central or large vessel thrombus identified. 2. Questionable paucity of vessels in the distal LEFT MCA territory, distal to the M2 division. 3. No aneurysm -Unfortunately patient is not a tPA candidate given that she is on Xarelto -Now with right upper quadrantanopia, right peripheral vision field blurriness Plan - aspirin -atorvastatin - Neurology consulted -resume xarelto - Continue statin -Repeat head CT -MRI of the brain -Allow for permissive hypertension treat if systolic blood pressure greater than 220 or diastolic greater than 120 (2) A-fib: - Continue patient Xarelto - Continue beta-joe (3) DM type 2 (diabetes mellitus, type 2): -insulin sliding scale (4) TIA (transient ischemic attack): (5) Pituitary tumor: - History of resection of pituitary malignancy back in 2019 There is a large enhancing sellar/suprasellar mass without an identifiable pituitary gland. Mass is centered in the sella turcica and extends greatest to the RIGHT with encasement of the distal RIGHT intracranial carotid artery through the cavernous sinus. There is a long segment of carotid encasement. Encasement extends supraclinoid. Mass extends superiorly with contact on the optic chiasm and displacement of the infundibulum. There is encroachment upon but no displacement of the RIGHT A1 segment. Mass extends along the clivus. Length of the mass is 2.4 cm along the clivus. Anterior posterior 2.0 cm and transverse by 2.4 cm. Mass extends just across the midline of the sella but does not definitely encase or contact the LEFT carotid artery. There is a nodular enhancement of the infundibulum which is probably tumor extension. Tumor encroaching close to the RIGHT orbital apex. Partial encasement or displacement of the RIGHT optic nerve. Normal diffusion imaging. No acute infarct. Mild symmetric volume loss and small vessel disease. No large territory prior infarct. Ventricles are normal size. No additional masses. Dural venous sinuses are normal. - As this pituitary tumor is in contact with the right optic nerve, with partial encasement or displacement - Question is is that is patient's right quadrantanopia symptoms, intermittent blurry visions out of the right eye the consequence of this pituitary tumor versus her stroke symptoms - Will reach out to neurosurgeon at [facility] [place] with dehydration-gentle hydration with normal saline UTI - Rocephin Hypertension, resume home blood pressure medications Pituitary tumor, CT and MRI findings as above, PDMP PDMP Reviewed: Not Reviewed Attestations Medical Necessity Statement*: Patient requires hospitalization inpatient, greater than 2 midnights, for acute CVA, pituitary tumor Diagnoses Stroke-like symptoms R29.90 Paroxysmal atrial fibrillation I48.0 Atrial fibrillation type: paroxysmal Type 2 diabetes mellitus without complication, with long-term current use of insulin E11.9; Z79.4 Diabetes mellitus complication status: without complication Diabetes mellitus termite treater helper insulin use: with shelter use TIA (transient ischemic attack) G45.9 Pituitary tumor D49.7
[2025-02-17] MEDS: insulin glargine 100 units/1 mL 10 UNIT SUBCUT (17:45)
[2025-02-17 20:14] LABS: Glucose Point of Care 497 mg/dL (70-110)
[2025-02-17] MEDS: baclofen 10 mg Tablet 5 MG PO (20:45)
[2025-02-17] MEDS: atorvastatin 40 mg Tablet PO (20:45)
[2025-02-17] MEDS: acetaminophen 325 mg Tablet 650 MG PO (20:46)
[2025-02-18 00:34] LABS: Glucose Point of Care 420 mg/dL (70-110)
[2025-02-18] MEDS: sodium chloride 0.9% 1,000 ML 200 ML IV (01:09)
[2025-02-18] MEDS: insulin lispro 100 unit/1 mL 20 UNIT SUBCUT (01:09)
[2025-02-18 02:36] LABS: Glucose Point of Care 270 mg/dL (70-110)
[2025-02-18 03:58] LABS: Glucose Point of Care 137 mg/dL (70-110)
[2025-02-18 04:00] VITALS: BP 131/64; PULSE 69; RESP 17; TEMP 36.7; O2SAT 94
[2025-02-18 05:18] LABS: Glucose Point of Care 57 mg/dL (70-110)
[2025-02-18 05:49] LABS: Basophils % 0.5 %; Eosinophils # 0.4 10^3/uL (0.0-0.8); Eosinophils % 4.2 %; Hematocrit 36.9 % (36-47); Lymphocytes # 2.8 10^3/uL (0.8-4.8); Lymphocytes % 33.5 %; Mean Corpuscular HGB Conc 31.4 g/dL (30-55); Mean Corpuscular Hemoglobin 26.8 pg (27-33); Mean Corpuscular Volume 85.2 fl (85-98); Mean Platelet Volume 9.6 fL (7.4-10.4); Monocytes % 12.5 %; Neutrophils # 4.05 10^3/uL (1.8-7.7); Neutrophils % 49.1 %; Nucleated Red Blood Cells % 0 %; Platelet Count 126 10^3/cmm (157-399); Red Blood Count 4.33 10^6/uL (3.85-5.65); Red Cell Distribution Width 15.4 % (12.1-15.1); White Blood Count 8.26 10^3/uL (3.29-11.43)
[2025-02-18 05:52] LABS: Glucose Point of Care 82 mg/dL (70-110)
[2025-02-18 06:19] LABS: Glucose Point of Care 116 mg/dL (70-110)
[2025-02-18 06:19] LABS: Anion Gap 14.8 (5-19); Blood Urea Nitrogen 33 mg/dL (8-23); Calcium 8.7 mg/dL (8.5-10.5); Carbon Dioxide 19 mmol/L (22-29); Chloride 109 mmol/L (98-107); Creatinine Clr Calc Pharmacy 28.8871; Glucose 54 mg/dL (65-115); Osmolality Calculated 293 mOsm/kg (285-295); Potassium 3.8 mmol/L (3.5-5.1); Sodium 139 mmol/L (136-145)
[2025-02-18 06:31] VITALS: PULSE 59
[2025-02-18 07:32] VITALS: BP 120/70; BP 143/94; BP 189/77; PULSE 65; PULSE 80
--- NOTE | 2025-02-18 07:32 | US_ITS ---
WS: [id number] ULTRASOUND RENAL TECHNIQUE: Ultrasound examination of both kidneys. CLINICAL INFORMATION: wilmar COMPARISON: None. FINDINGS: RIGHT: Right kidney is normal in size and appearance. Echogenicity: Normal. Cortical thickness: 1.4 cm; Normal. Hydronephrosis: None. Perinephric fluid: None. Right kidney measures: 8.6 cm x 4.9 cm x 5.5 cm. LEFT: Left kidney is normal in size and appearance. Echogenicity: Normal. Cortical thickness: 1.2 cm; Normal. Hydronephrosis: None. Perinephric fluid: None. Left kidney measures: 10.0 cm x 5.0 cm x 6.3 cm. Normal visualized aorta. US/US renal BI* [id number] IMPRESSION: 1. No hydronephrosis in either kidney. 2. Large simple cyst inferior pole LEFT kidney measuring 6.5 x 6.1 x 6.0 cm 3. Normal bladder
[2025-02-18] MEDS: pantoprazole 40 mg SDV IVP (07:51)
[2025-02-18] MEDS: sucralfate 1 gm/10 mL Oral Liq UDC PO (07:51)
[2025-02-18] MEDS: rivaroxaban 10 mg Tablet 20 MG PO (07:51)
[2025-02-18] MEDS: aspirin 81 mg EC Tablet PO (07:52)
[2025-02-18] MEDS: ciprofloxacin 500 mg Tablet PO (07:52)
[2025-02-18] MEDS: metoprolol succinate ER (24 HR) 50 mg Tablet PO (07:52)
[2025-02-18] MEDS: levothyroxine 88 mcg Tablet PO (07:52)
[2025-02-18] MEDS: sodium chloride 0.9% 1,000 ML 75 ML IV (07:53)
[2025-02-18] MEDS: desvenlafaxine 50 mg Tablet PO (07:53)
[2025-02-18 08:12] VITALS: BP 163/70; PULSE 66; RESP 17; TEMP 36.5; O2SAT 99
--- NOTE | 2025-02-18 08:29 | PC.NURSE ---
lifestyle coordinator rounds- 02/16-02/17, patient and visitor sleeping during my rounds, on 02/17 at 0855 I left the stroke education book on the bedside table.
--- NOTE | 2025-02-18 09:04 | USCV_ITS ---
Ambika Nichols Age: 69 Gender: F : 1955 Exam Date: 02/18/2025 11:07 Ordering Phys: William Bernard MD Technologist: JIM Exam Location: [facility] [place] Indication: Echo lmt w/wo bubbles BP: / HR: Rhythm: Sinus Technical Quality: Adequate MEASUREMENTS (Male / Female) Normal Values FINDINGS Left Ventricle Right Ventricle Right Atrium Left Atrium Mitral Valve Aortic Valve Tricuspid Valve Pulmonic Valve Pericardium Aorta IVC CONCLUSIONS Limited echocardiogram performed to rule out intracardiac shunting. Limited quality images. LV systolic function is normal. No evidence of intracardiac shunting seen Mane Blake MD (Electronically Signed) Final Date: 18 February 2025 15:33 S
--- NOTE | 2025-02-18 09:09 | P.DS_ITS ---
Discharge Providers Date of Admission: 02/17/25 15:58 Date of Discharge: February 18, 2025 Attending Provider at Admission: Joanne Lomas MD Attending Provider at Discharge: William Bernard MD Primary Care Provider: Marcia Flannery MD Diagnoses at Discharge Discharge Diagnosis (1) Stroke-like symptoms: Status: Acute (2) A-fib: Status: Acute Qualifiers: Atrial fibrillation type: paroxysmal Qualified Code(s): I48.0 - Paroxysmal atrial fibrillation (3) DM type 2 (diabetes mellitus, type 2): Status: Acute Qualifiers: Diabetes mellitus complication status: without complication Diabetes mellitus correction insulin use: with manager intermediate use Qualified Code(s): E11.9 - Type 2 diabetes mellitus without complications; Z79.4 - group home (current) use of insulin (4) TIA (transient ischemic attack): Status: Acute (5) Pituitary tumor: Status: Acute Permanent problem details: s/p post surgery at [facility] 2019? Reason for Visit Reason for Visit: Losing thought Process Hospital Course Hospital Course This is a 69-year-old female with past medical history of atrial fibrillation on Xarelto therapy, hyperlipidemia, type 2 diabetes mellitus, history of pituitary tumor, who presents to [facility] due to right facial numbness, right facial droop, slurring of words, right arm paresthesias. Patient was admitted to [facility] for acute CVA, she was not a tPA candidate given that she was on Xarelto, she is medically managed, monitored on the medical floors, received IV fluids, telemetry monitoring, permissive hypertension, placed on aspirin in addition to her Xarelto and monitored and neurology was consulted. Patient's symptoms did wax and wane during her hospitalization, - She would have intermittent right facial droop, slurring of her words, right facial numbness, right arm paresthesias that would last for a few seconds - Repeat head CT had no acute findings - head ct - CT/CT head wo con* [id number] IMPRESSION: 1. No acute intracranial findings. 2. 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 head cta CT/CT angio headneck* [id number] IMPRESSION: 1. No large vessel stenosis or occlusion. 2. Known sellar/suprasellar mass extending to the right cavernous sinus with enhancing thickened infundibulum as seen on comparison MRI. IMPRESSION: No stenosis or occlusion. MRA head MR/MR angio head wo con [id number] IMPRESSION: 1. No central or large vessel thrombus identified. 2. Questionable paucity of vessels in the distal LEFT MCA territory, distal to the M2 division. 3. No aneurysm Head MRI - MR/MR head wo con* [id number] IMPRESSION: 1. Normal diffusion imaging. No acute infarct. 2. Mild volume loss and small vessel disease. 3. 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 4. No ventriculomegaly - Cardiac echocardiogram bubble study no intracardiac shunting seen - On discharge patient is alert oriented x 3, following all commands, no focal weakness, no right arm paresthesias, no visual field loss, no facial paresthesias, no word finding all difficulty, no slurring of words, she does have a very slight right facial droop although minimal - She will be discharged on aspirin, Xarelto, statin with close follow-up with neurology as outpatient - Patient was advised if she were to have any recurrent strokelike symptoms to immediately call 911 On 02/17/2025 - Patient had complaints of right upper quadrantanopia, right eye peripheral field vision was diminished/cloudy -Spoke to neurology recommended to repeat MRI - Repeated head MRI TECHNIQUE: Diffusion imaging, multiplanar T1, T2 and FLAIR imaging obtained. No evidence for acute infarct or hemorrhage. Alva-white matter differentiation is normal. No prior infarct. There is mild volume loss and mild small vessel disease. Ventricles and extra-axial spaces are normal. Reidentified is the known pituitary macroadenoma that is partially encasing the RIGHT cavernous sinus and carotid artery. Thickening and enlargement of the pituitary infundibulum. Normal flow voids of the adjacent carotid arteries. Minimal hippocampal atrophy. Dural venous sinuses and [place] demonstrate no abnormality on this unenhanced studies. Compared to pituitary MRI for 1125 There is a large enhancing sellar/suprasellar mass without an identifiable pituitary gland. Mass is centered in the sella turcica and extends greatest to the RIGHT with encasement of the distal RIGHT intracranial carotid artery through the cavernous sinus. There is a long segment of carotid encasement. Encasement extends supraclinoid. Mass extends superiorly with contact on the optic chiasm and displacement of the infundibulum. There is encroachment upon but no displacement of the RIGHT A1 segment. Mass extends along the clivus. Length of the mass is 2.4 cm along the clivus. Anterior posterior 2.0 cm and transverse by 2.4 cm. Mass extends just across the midline of the sella but does not definitely encase or contact the LEFT carotid artery. There is a nodular enhancement of the infundibulum which is probably tumor extension. Tumor encroaching close to the RIGHT orbital apex. Partial encasement or displacement of the RIGHT optic nerve. Normal diffusion imaging. No acute infarct. Mild symmetric volume loss and small vessel disease. No large territory prior infarct. Ventricles are normal size. No additional masses. Dural venous sinuses are normal. MR/MR pituitary wo/w con* [id number] IMPRESSION: 1. Large enhancing lobulated sellar/suprasellar mass predominantly to the RIGHT of midline. Mass measures 2.0 cm AP x 2.4 cm transverse x 2.4 cm in length extending along the clivus. Mass encases the RIGHT cavernous carotid artery without occlusion. Nodular enhancement along the infundibulum consistent with tumor extension. Mass is extending also towards the orbital apex. Recommend evaluation by ENT. This is most consistent with pituitary macroadenoma. By history patient had prior pituitary mass surgically excised. 2. No acute infarct. 3. No additional masses. -My concern at that time was as this large sellar/suprasellar mass is predominantly right to the midline, and extending towards the orbital apex, grossly upon the right A1 segment, mass has partial encasement or displacement of the right optic nerve -Could patient's sellar/suprasellar mass be an explanation of her visual field symptoms, and some of her facial symptoms - I discussed findings with [facility], neurosurgeon, images were clouded over - Discussed that there is no urgent need for surgical intervention, recommended follow-up as outpatient, recommended to follow-up as outpatient for consideration of surgical intervention - Discussed this with patient and family detail - Discussed with family to monitor for headaches - Discussed with family to monitor for painless monocular right vision loss - Will refer to follow-up with Dr. [facility], for dilated eye exam, to evaluate optic disc - On discharge patient had detailed visual field testing - I can discern any significant visual field loss during my examination in bilateral eyes - Nonetheless discussed with patient that if she has any sudden onset vision loss or vision changes to immediately come to the emergency room - Patient and family voiced understanding, all questions answered, agreed to proceed Physical Exam Const: COMMON NORMALS: no acute distress and patient oriented x3 Neck/C-Spine: COMMON NORMALS: no JVD Resp: COMMON NORMALS: normal respiratory effort, No retractions, No use of accessory muscles and clear to auscultation bilaterally AUSCULTATION: clear to auscultation bilaterally Cardio: COMMON NORMALS: no JVD, regular rate, regular rhythm, S1 normal heart sound present and S2 normal heart sound present RATE: regular rate RHYTHM: regular rhythm HEART SOUNDS: S1 normal heart sound present and S2 normal heart sound present GI: COMMON NORMALS: Normal to inspection, nondistended, normoactive bowel sounds present and non-tender Extremity: COMMON NORMALS: no pedal edema Neuro: COMMON NORMALS: patient oriented x3 Psych: COMMON NORMALS: mental status grossly normal Discharge Data Studies Completed and Pending Completed Studies During Hospitalization Category Date Time Status CT angio headneck* [id number] Stat Cat Scan 02/15/25 22:[address] head wo con* [id number] Stat Cat Scan 02/15/25 22:[address] head wo con* [id number] Stat Cat Scan 02/17/25 11:12 Completed XR chest 1V portable [id number] Stat Exams 02/15/25 22:56 Completed MR angio head wo con [id number] Urgent MRI 02/16/25 05:02 Completed MR head wo con* [id number] Stat MRI 02/17/25 13:27 Completed CV. echo complete* [id number] Routine Ultrasound 02/16/25 04:59 Completed Pending at discharge Category Date Time Status BMP [Basic Metabolic Panel] Stat Lab 02/18/25 12:00 Ordered Basic Metabolic Panel AM LABS Lab 02/19/25 04:00 Ordered Complete Blood Count w/Auto AM LABS Lab 02/19/25 04:00 Ordered Urine Culture Stat Lab 02/16/25 10:53 Results CV. echo lmt wo/w bubble [id number] Stat Ultrasound 02/18/25 09:04 Ordered US renal BI* [id number] Routine Ultrasound 02/18/25 07:32 Ordered Radiology Impressions Chest X-Ray 02/15/25 22:56 IMPRESSION: No acute findings. Head/Neck CTA 02/15/25 22:56 IMPRESSION: 1. No large vessel stenosis or occlusion. 2. Known sellar/suprasellar mass extending to the right cavernous sinus with enhancing thickened infundibulum as seen on comparison MRI. IMPRESSION: No stenosis or occlusion. REFERENCES: NASCET CRITERIA. The degree of stenosis in the cervical segment of the internal carotid artery is based on NASCET criteria. Normal is no stenosis. Mild is less than 50% stenosis. Moderate is 50-69% stenosis. Severe is 70% to 99% stenosis. Total occlusion is no detectable patent lumen. ADDENDUM: 02/16/25 0129 The findings were acknowledged to be understood at 1:25 AM CDT on 02/16/2025, via the OPS team, by KAIDEN TAN. Head MRA 02/16/25 05:02 IMPRESSION: 1. No central or large vessel thrombus identified. 2. Questionable paucity of vessels in the distal LEFT MCA territory, distal to the M2 division. 3. No aneurysm. Head CT 02/17/25 11:12 IMPRESSION: 1. No evidence of intracranial hemorrhage or mass effect. 2. No acute intracranial findings. 3. No change compared to previous 4. Stable RIGHT sellar and suprasellar mass Head MRI 02/17/25 13:27 IMPRESSION: 1. Normal diffusion imaging. No acute infarct. 2. Mild volume loss and small vessel disease. 3. 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 4. No ventriculomegaly. Laboratory Results WBC 8.26 10^3/uL (3.29-11.43) 02/18/25 05:29 RBC 4.33 10^6/uL (3.85-5.65) 02/18/25 05:29 Hgb 11.60 g/dL (11.27-16.99) 02/18/25 05:29 Hct 36.9 % (36-47) 02/18/25 05: MCV 85.2 fl (85-98) 02/18/25 05:29 MCH 26.8 pg (27-33) L 02/18/25 05: MCHC 31.4 g/dL (30-55) 02/18/25 05: RDW 15.4 % (12.1-15.1) H 02/18/25 05:29 Plt Count 126 10^3/cmm (157-399) L 02/18/25 05:29 MPV 9.6 fL (7.4-10.4) 02/18/25 05:29 Neut % (Auto) 49.1 % 02/18/25 05:29 Lymph % (Auto) 33.5 % 02/18/25 05:29 [place] % (Auto) 12.5 % 02/18/25 05:29 Eos % (Auto) 4.2 % 02/18/25 05:29 Baso % (Auto) 0.5 % 02/18/25 05:29 Neut # (Auto) 4.05 10^3/uL (1.8-7.7) 02/18/25 05:29 Lymph # (Auto) 2.8 10^3/uL (0.8-4.8) 02/18/25 05:29 [place] # (Auto) 1.0 10^3/uL (0.2-0.9) H 02/18/25 05:29 Eos # (Auto) 0.4 10^3/uL (0.0-0.8) 02/18/25 05:29 Baso # (Auto) 0.0 10^3/uL (0.0-0.1) 02/18/25 05:29 Nucleated RBC % (auto) 0 % 02/18/25 05:29 Nucleated RBCs # 0.0 /100WBC 02/18/25 05:29 Sodium 139 mmol/L (136-145) 02/18/25 05: Potassium 3.8 mmol/L (3.5-5.1) 02/18/25 05:29 Chloride 109 mmol/L (98-107) H 02/18/25 05:29 Carbon Dioxide 19 mmol/L (22-29) L 02/18/25 05:29 Anion Gap 14.8 (5-19) 02/18/25 05:29 BUN 33 mg/dL (8-23) H 02/18/25 05:29 Creatinine 2.0 mg/dL (0.5-0.9) H 02/18/25 05:29 GFR Calculation Not Reportable 02/18/25 05:29 Glucose 54 mg/dL (65-115) L 02/18/25 05:29 POC Glucose 116 mg/dL (70-110) H 02/18/25 06:15 Estimat Average Glucose 217 02/17/25 05:12 Hemoglobin A1c 9.2 % (4.0-6.0) H 02/17/25 05:12 Calculated Osmolality 293 mOsm/kg (285-295) 02/18/25 05:29 Calcium 8.7 mg/dL (8.5-10.5) 02/18/25 05:29 Phosphorus 4.2 mg/dL (2.5-4.5) 02/16/25 05:45 Magnesium 2.2 mg/dL (1.7-2.3) 02/16/25 05:45 Total Bilirubin 0.3 mg/dL (0.15-1.2) 02/16/25 05:45 AST 16 U/L (0-32) 02/16/25 05:45 ALT 16 U/L (0-33) 02/16/25 05:45 Alkaline Phosphatase 97 U/L (35-105) 02/16/25 05:45 Total Protein 6.1 g/dL (6.6-8.7) L D 02/16/25 05:45 Albumin 3.2 g/dL (3.5-5.2) L 02/16/25 05:45 Globulin 2.9 g/dL (1.3-4.6) 02/16/25 05:45 Triglycerides 415 mg/dL (0-150) H 02/17/25 05:12 Cholesterol 176 mg/dL (0-200) 02/17/25 05:12 LDL Cholesterol Direct 84 mg/dL (0-100) 02/17/25 05:12 LDL Cholesterol, Calc Not Reportable 02/17/25 05:12 HDL Cholesterol 25 mg/dL (60-100) L 02/17/25 05:12 LDL/HDL Ratio Not Reportable 02/17/25 05:12 Cholesterol/HDL Ratio 7.04 mg/dL (0.0-4.40) H 02/17/25 05:12 Urine Color Other (Yellow) A 02/16/25 10:53 Urine Appearance Clear (CLEAR) 02/16/25 10:53 Urine pH 6.0 (5-7) 02/16/25 10:53 Ur Specific [place] 1.054 (1.005-1.030) H 02/16/25 10:53 Urine Protein 2+ (Negative) A 02/16/25 10:53 Urine Glucose (UA) Negative (Normal) 02/16/25 10:53 Urine Ketones Negative (Negative) 02/16/25 10:53 Urine Blood Trace (Negative) A 02/16/25 10:53 Urine Nitrate Error (Negative) A 02/16/25 10:53 Urine Bilirubin Negative (Negative) 02/16/25 10:53 Urine Urobilinogen 1.0 mg/dL (Negative) 02/16/25 10:53 Ur Leukocyte Esterase Trace (Negative) A 02/16/25 10:53 Urine RBC 3-5 /hpf (0-2) 02/16/25 10:53 Urine WBC 21-50 /hpf (0-5) H 02/16/25 10:53 Ur Squamous Epith Cells 0-5 /hpf (0-5) 02/16/25 10:53 Amorphous Sediment Not Reportable 02/16/25 10:53 Urine Bacteria 4+ /hpf (NONE) H 02/16/25 10:53 Hyaline Casts 3.71 /lpf 02/16/25 10:53 Vitals Last Vital Signs Temp 97.7 F 02/18/25 08:12 Pulse 66 02/18/25 08:12 Resp 17 02/18/25 08:12 BP 163/70 02/18/25 08:12 Pulse Ox 99 02/18/25 08:12 O2 Del Method Room Air 02/18/25 08:12 Discharge Plan Discharge Patient Disposition: Home Condition: Stable Prescriptions: New atorvastatin 40 mg Tablet 40 mg PO BEDTIME 30 Days Qty: 30 0RF ciprofloxacin HCl 500 mg Tablet 500 mg PO BID@0900,2100 5 Days Qty: 10 0RF aspirin 81 mg Tablet,Delayed Release (Dr/Ec) 81 mg PO DAILY 30 Days Qty: 30 0RF Continued desvenlafaxine succinate [Pristiq] 50 mg tablet extended release 24 hr 50 mg PO DAILY 90 Days Qty: 90 2RF Rx Instructions: 340B Jardiance 25 mg tablet 25 mg PO DAILY 90 Days Qty: 90 2RF Rx Instructions: 340B metoprolol succinate 50 mg tablet extended release 24 hr 50 mg PO DAILY 90 Days Qty: 90 2RF Xarelto 20 mg tablet 20 mg PO DAILY 90 Days Qty: 90 2RF Rx Instructions: must administer with evening meal 340B pravastatin 40 mg tablet 40 mg PO DAILY 90 Days Qty: 90 3RF baclofen 5 mg tablet 5 mg PO BID PRN (Reason: muscle spasm) Qty: 60 0RF levothyroxine 88 mcg tablet 88 mcg PO DAILY 90 Days Qty: 90 2RF magnesium glycinate 118 mg magnesium Capsule 118 mg PO DAILY insulin degludec [Tresiba FlexTouch U-100] 100 unit/mL (3 mL) insulin pen 25 unit SUBCUT QAM Qty: 15 0RF Held lisinopril 40 mg tablet 40 mg PO DAILY 90 Days Qty: 90 2RF Hold Instructions: Resume on 02/21/25. Rx Instructions: 340B hydrochlorothiazide 12.5 mg tablet 12.5 mg PO QAM Hold Instructions: Resume on 02/20/25. amlodipine 10 mg tablet 10 mg PO DAILY PRN (Reason: bp) Hold Instructions: Resume on 02/21/25. Rx Instructions: Hold for low bp No Action (DME) Dexcom G6 Sensor Device See Rx Instructions .ROUTE .MEDSUPPLY Qty: 3 3RF Rx Instructions: As directed (DME) Dexcom G6 Cadmium Liquor Maker Misc See Rx Instructions .ROUTE .MEDSUPPLY Qty: 1 0RF Rx Instructions: As directed (DME) Dexcom G6 Transmitter Device See Rx Instructions .ROUTE .MEDSUPPLY Qty: 1 0RF Rx Instructions: As directed (DME) Blood Glucose Test Strip See Rx Instructions .Route Qty: 50 0RF Rx Instructions: As directed (DME) blood-glucose meter Kit See Rx Instructions .Route Qty: 1 0RF Rx Instructions: As directed (DME) E-Z Ject Lancets 32 gauge misc See Rx Instructions .Route Qty: 100 0RF Rx Instructions: As directed Discharge Orders: Discharge Order (Routine); Ordered 02/18/25 Ordered By: William Bernard Referrals: [facility] [Outside] - 02/24/25 8:00 am Referral Note: right pituitary mas displace optic nerve evaluate optic disc, papiledema Ralph Huang MD [Physician, Neurology] - 02/25/25 10:00 am Marcia Flannery MD [Primary Care Provider, [facility]] - 02/23/25 11:15 am Discharge Diet: Cardiac Discharge Activity: Resume usual activity Patient Instructions: Ciprofloxacin (By mouth), Aspirin (By mouth), Atorvastatin (By mouth), Opioid Safety Activity Restrictions/Additional Instructions: - Monitor your blood sugars closely -Take antibiotics as prescribed - If you have strokelike symptoms go to emergency room or call 911 please do not wait - Please slowly resume your blood pressure medications in a graded fashion -Resume hydrochlorothiazide on Saturday - Resume lisinopril on Saturday -Please follow-up with Dr. [facility] for right eye examination - Please follow-up with [facility] for right pituitary macroadenoma - Please see your primary care provider for blood pressure checks - Check your blood pressure twice daily, follow-up with primary care provider - Follow-up with cardiology Discharge Attestations Time Spent in Discharge Care*: greater than 30 min Status at Discharge: Cognitive status at discharge: cognitively intact , Behavioral status at discharge: cooperative , Quality Metrics Clinical Quality Measures [ No reported AMI, CVA or VTE this stay] Coding Level of Care Code 02459 Total time (in minutes) for Discharge: 45 Diagnoses Stroke-like symptoms R29.90 Paroxysmal atrial fibrillation I48.0 Atrial fibrillation type: paroxysmal Type 2 diabetes mellitus without complication, with long-term current use of insulin E11.9; Z79.4 Diabetes mellitus complication status: without complication Diabetes mellitus manager intermediate insulin use: with correction use TIA (transient ischemic attack) G45.9 Pituitary tumor D49.7
--- NOTE | 2025-02-18 09:10 | PC.NURSE ---
Discharge delayed pending echo with bubble study. Echo must be completed and read before discharged.
--- NOTE | 2025-02-18 09:26 | PC.NURSE ---
flight operation coordinator rounds- patient sitting on the side of the bed, ready to work with therapy, said she had a hard night with her blood sugars going down and up. bedside as well.
[2025-02-18] MEDS: insulin glargine 100 units/1 mL 15 UNIT SUBCUT (09:54)
[2025-02-18 10:53] LABS: Glucose Point of Care 185 mg/dL (70-110)
[2025-02-18 11:09] VITALS: BP 172/64; PULSE 63; RESP 18; TEMP 36.7; O2SAT 98
[2025-02-18 12:10] LABS: Anion Gap 14.6 (5-19); Blood Urea Nitrogen 30 mg/dL (8-23); Calcium 8.7 mg/dL (8.5-10.5); Carbon Dioxide 21 mmol/L (22-29); Chloride 106 mmol/L (98-107); Creatinine Clr Calc Pharmacy 33.9848; Glucose 185 mg/dL (65-115); Osmolality Calculated 295 mOsm/kg (285-295); Potassium 4.6 mmol/L (3.5-5.1); Sodium 137 mmol/L (136-145)
[2025-02-18] MEDS: insulin lispro 100 unit/1 mL SUBCUT (12:40)
[2025-02-18 16:45] VITALS: BP 172/66; PULSE 63; RESP 18; TEMP 36.7; O2SAT 98
== END 2025-02-18 16:49 | disposition home or self-care (01) ==
LOC: ER 02-16 04:19 → ER IP 02-16 07:47 → MEDSURG 02-16 12:08
PROVIDERS: Admitting Provider Internal Medicine; Emergency Provider Student in an Organized Health Care Education/Training Program; PCP Family Medicine; Visit Provider Family Medicine
DX: G45.9 Transient cerebral ischemic attack, unspecified (principal); N18.9 Chronic kidney disease, unspecified; E11.22 Type 2 diabetes mellitus with diabetic chronic kidney disease; E11.40 Type 2 diabetes mellitus with diabetic neuropathy, unspecified; E03.9 Hypothyroidism, unspecified; N17.9 Acute kidney failure, unspecified; E86.0 Dehydration; I48.0 Paroxysmal atrial fibrillation; E78.5 Hyperlipidemia, unspecified; I12.9 Hypertensive chronic kidney disease with stage 1 through stage 4 chronic kidney disease, or unspecified chronic kidney disease; R53.1 Weakness; R47.81 Slurred speech; N39.0 Urinary tract infection, site not specified; D49.7 Neoplasm of unspecified behavior of endocrine glands and other parts of nervous system; Z85.858 Personal history of malignant neoplasm of other endocrine glands; R29.810 Facial weakness; Z79.899 Other long term (current) drug therapy; Z79.890 Hormone replacement therapy; Z79.4 Long term (current) use of insulin
CPT/HCPCS: 36415; 36416; 70450; 70496; 70498; 70544; 70551; 71045; 76770; 80048; 80053; 80061; 81001; 82962; 83036; 83721; 83735; 84100; 85025; 87077; 87086; 87186; 92507; 92523; 92526; 92610; 93005; 93306; 96372; 96374; 97116; 97161; 97165; 99214; 99285; C8924; G0378; J0696; J1815; J2470; J7030; J9999

== ENCOUNTER → 2025-02-25 09:40 | Outpatient (BNVA) | payer MEDICARE, SELFPAY | PROVIDERS: PCP Family Medicine; Referring Provider Family Medicine; Visit Provider Psychiatry & Neurology Neurology | DX: G45.9 Transient cerebral ischemic attack, unspecified (principal); R42 Dizziness and giddiness | CPT/HCPCS: 99212 ==

== ENCOUNTER → 2025-03-16 07:58 | Outpatient (BNVA) | payer MEDICARE, SELFPAY | PROVIDERS: PCP Family Medicine; Visit Provider Nurse Practitioner Family | DX: M54.2 Cervicalgia (principal); M54.9 Dorsalgia, unspecified; G89.29 Other chronic pain; M48.062 Spinal stenosis, lumbar region with neurogenic claudication; M51.362 Other intervertebral disc degeneration, lumbar region with discogenic back pain and lower extremity pain; M47.816 Spondylosis without myelopathy or radiculopathy, lumbar region; M54.16 Radiculopathy, lumbar region | CPT/HCPCS: 99214 ==

== ENCOUNTER → 2025-03-25 13:17 | Outpatient (BNVA) | payer MEDICARE, SELFPAY | PROVIDERS: PCP Family Medicine; Visit Provider Nurse Practitioner Family | DX: M79.18 Myalgia, other site (principal); M54.2 Cervicalgia; M54.9 Dorsalgia, unspecified; G89.29 Other chronic pain; M48.062 Spinal stenosis, lumbar region with neurogenic claudication; M51.362 Other intervertebral disc degeneration, lumbar region with discogenic back pain and lower extremity pain; M47.816 Spondylosis without myelopathy or radiculopathy, lumbar region; M54.16 Radiculopathy, lumbar region | CPT/HCPCS: 20553; 99214; J1010; J3490 ==

== ENCOUNTER → 2025-05-06 09:32 | Outpatient (BNVA) | payer MEDICARE, SELFPAY | PROVIDERS: PCP Family Medicine; Visit Provider Nurse Practitioner Family | DX: M54.2 Cervicalgia (principal); M54.9 Dorsalgia, unspecified; G89.29 Other chronic pain; M48.062 Spinal stenosis, lumbar region with neurogenic claudication; M51.362 Other intervertebral disc degeneration, lumbar region with discogenic back pain and lower extremity pain; M47.816 Spondylosis without myelopathy or radiculopathy, lumbar region; M54.16 Radiculopathy, lumbar region | CPT/HCPCS: 99214 ==

== ENCOUNTER → 2025-05-18 14:34 | Outpatient (BNVA) | payer MEDICARE, SELFPAY | PROVIDERS: PCP Family Medicine; Visit Provider Orthopaedic Surgery | DX: M48.061 Spinal stenosis, lumbar region without neurogenic claudication (principal); M54.2 Cervicalgia; G89.29 Other chronic pain; E11.9 Type 2 diabetes mellitus without complications | CPT/HCPCS: 72050; 72110; 99203 ==

== ENCOUNTER → 2025-05-24 13:28 | Outpatient (BNVA) | payer MEDICARE, SELFPAY | PROVIDERS: PCP Family Medicine; Referring Provider Family Medicine; Visit Provider Internal Medicine | DX: I48.91 Unspecified atrial fibrillation (principal); Z79.01 Long term (current) use of anticoagulants; I12.9 Hypertensive chronic kidney disease with stage 1 through stage 4 chronic kidney disease, or unspecified chronic kidney disease; N18.9 Chronic kidney disease, unspecified | CPT/HCPCS: 99214 ==

== ENCOUNTER → 2025-05-26 10:56 | Outpatient (BNVA) | payer MEDICARE, SELFPAY | PROVIDERS: PCP Family Medicine; Visit Provider Family Medicine | DX: R30.0 Dysuria (principal); E11.9 Type 2 diabetes mellitus without complications; R31.0 Gross hematuria | CPT/HCPCS: 81000; 87086 ==

== ENCOUNTER 2025-06-04 09:54 | Emergency (ER) | payer MEDICARE, SELFPAY ==
[2025-06-04 09:56] VITALS: BP 117/75; PULSE 84; RESP 17; TEMP 36.9; O2SAT 94; BMI 28.1
--- OUTSIDE RECORDS SUMMARY | 2025-06-04 10:00 | XMS_ITS | Clinical Summary ---
Author Organization [facility] Address [address] Attn: [place] [address] Care Team Providers Care Anesthesiology Technologist Name Role Phone Unavailable Primary Care Provider Unavailabl e Allergies No known active allergies Medications traMADoL (ULTRAM) 50 mg tabletIndications: Chronic bilateral low back pain without sciatica Take 2 Tablets (100 mg) by mouth 2 times daily as needed for Pain. 60 Tablet 1 04/08/20 20 Active simvastatin (ZOCOR) 40 mg tabletIndications: Hypercholesteremia Take 1 Tablet (40 mg) by mouth daily. 90 Tablet 4 04/08/20 20 Active amLODIPine (NORVASC) 10 mg tabletIndications: Essential hypertension Take 1 Tablet (10 mg) by mouth daily. awv due in sep Tablet 4 04/08/20 20 Active desvenlafaxine (PRISTIQ) 50 mg Extended Release 24 hour tabletIndications: Menopause Take 1 Tablet (50 mg) by mouth daily with breakfast. Take 1 in am for 14 days and call in 10 days 90 Tablet 4 04/08/20 20 Active lisinopriL (PRINIVIL) 40 mg tabletIndications: Essential hypertension,CKD (chronic kidney disease) stage 3, GFR 30-59 ml/min (CMS/HCC) Take 1 Tablet (40 mg) by mouth daily. 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 90 Tablet 0 04/10/20 20 Active insulin detemir U-100 (Levemir FlexTouch U-100 Insuln) 100 unit/mL pen syringeIndications :Type 2 diabetes mellitus with hyperglycemia, without long-term current use of insulin ([facility]) Inject 42 units subcutaneously BID. E11.65 30 mL 6 04/08/20 20 Active empagliflozin (Jardiance) 25 mg tablet TAKE 1 TABLET BY MOUTH ONCE DAILY IN THE MORNING 90 Tablet 0 08/03/20 20 Active OneTouch Ultra Test Strip USE as directed TO test blood sugar 12/10/19 25 Active OneTouch Ultra2 Meter USE DIRECTED TO test blood sugar 12/10/19 25 Active Dexcom G7 Sensor Device use as directed 01/16/20 25 Active OneTouch Delica Plus Lancet 33 gauge USE DIRECTED TO test blood sugar ONCE DAILY 12/10/19 25 Active pravastatin (PRAVACHOL) 40 mg tablet Take 1 Tablet by mouth daily. 12/01/19 25 Active Xarelto 20 mg Tablet TAKE 1 TABLET BY MOUTH ONCE DAILY FOR 90 DAYS; must administer with evening meal 01/16/20 25 Active Active Problems Problem Noted Date Diagnosed Date Vitamin D deficiency 10/14/2019 Hypercholesteremia 10/14/2019 Hyperparathyroidism 06/01/2019 Pseudophakia of both eyes 04/01/2017 Dry eyes, bilateral 02/19/2017 Type 2 diabetes mellitus, wi thout long-term current use of insulin 02/19/2017 Dot and blot hemorrhage 02/19/2017 CKD (chronic kidney disease) stage 3, GFR 30-59 ml/min 04/09/2016 Overview (01/12/2021): ACTION 04/09/2020 GFR decreased from 50s to 38. Recheck in 3-4 weeks. Type 2 diabetes with stage 3 chronic kidney disease GFR 30-59 04/09/2016 Overview (01/12/2021): DISABILITY MEDICARE SINCE 2014 Pituitary adenoma 09/22/2014 Overview (01/12/2021): resection done at [facility] in 02/2014. Hypothyroidism, unspecified 08/19/2014 Overview (01/12/2021): ACTION 04/08/20 TSH 2.43 88 mcg. Increase to 100 mcg. Recheck in 3 month. Essential hypertension 08/19/2014 Sensory hearing loss, unilateral 08/05/2014 Overview (01/12/2021): profound right ear Resolved Problems Problem Noted Date Diagnosed Date Resolved Date Combined forms of age-relate d cataract of left eye 02/19/2017 04/16/2017 Encounters Date Type Department Care Team Description 05/05/2025 External Device Data STL ABSTRACTION Provider, Abstract 04/21/2025 External Device Data STL ABSTRACTION Provider, Abstract 03/31/2025 External Device Data STL ABSTRACTION Provider, Abstract 03/31/2025 External Device Data STL ABSTRACTION Provider, Abstract 03/31/2025 External Device Data STL ABSTRACTION Provider, Abstract from Last 3 Months Immunizations Immunization Administration Dates Next Due (PNEUMOVAX 23)(50 YRS UP) PN EUMOCOCCAL POLYSACCHARIDE (PPV23) 0.5 ML, IM 10/14/2019 Influenza Vaccine Quad Split 3+ Yrs Im 4 Influenza Vaccine Quad Split 6-35 Mo Pf Im 08/19 Family History Medical History Relation Name Comments Diabetes Brother Breast Cancer Neg Hx Negative Respo nse-see media tab Colon Cancer Neg Hx Relation Name Status Comments Brother Alive Father Alive Mother Sister Alive Social History Tobacco Use Types Packs/Day Years Used Date Smoking Tobacco: Never Smokeless Tobacco: Never Tobacco Cessation:Counseling Given: Not Answered Alcohol Use Standard Drinks/Week Comments No 0 (1 standard drink = 0.6 oz pur e alcohol) Comments Unknown Sex and Gender Information Value Date Recorded Sex Assigned at Not on file Legal Sex Female 2:55 AM OLIVE PITTER Gender Identity Not on file Sexual Orientation Not on file Last Filed Vital Signs Vital Sign Reading Time Taken Comments Blood Pressure 156/62 02/01/2025 1:49 PM CDT Pulse 80 04/08/2020 8:41 AM CDT Temperature 36.3 C (97.4 F) 10/14/2019 1:35 PM OLIVE PITTER Respiratory Rate 18 11/18/2019 11:05 AM OLIVE PITTER Oxygen Saturation - - Inhaled Oxygen Concentration - - Weight 79.4 kg (175 lb) 02/01/2025 1:49 PM CDT Height 170.2 cm (5' 7 ) 02/01/2025 1:49 PM CDT Body Mass Index 27.41 02/01/2025 1:49 PM CDT Plan of Treatment Upcoming Encounters Date Type Department Care Team (Late st Contact Info) Description 02/02/2026 2:30 PM CDT Office Visit [facility] Neuro[facility] [address] [place] [address] Boo Rubin MD [address] [place] [address] Health Maintenance Due Date Last Done Comments DTAP/TDAP/TD VACCINES (1 - Tdap) 02/24/1972 Flex Sig/CT Colonography Q 5 years 1998 ZOSTER VACCINE (1 of 2) 2003 RSV VACCINE (60+ or ) (1 - Risk 60-74 years 1-dose series) 2013 FIT/FOBT Q 1 year 04/30/2017 04/30/2016 DIABETES ANNUAL RETINAL EXAM 11/05/2019, 11/05/2018, 02/19/2017, Additional history exists DIABETES HBA1C Q 6 MONTHS 10/09/20202019, 04/08/2020, 06/01/2019, Additional history exists PNEUMOCOCCAL VACCINE 50+ YEA RS (2 of 2 - PCV) 10/14/2020 10/14/2019 BREAST CANCER SCREENING 01/05/2021 01/06/20 19, 01/05/2019, 11/04/2017, Additional history exists DIABETES ANNUAL FOOT EXAM 04/08/20212019, 01/09/2018, 08/28/2017, Additional history exists DIABETES MICROALBUMIN ANNUAL SCREEN 04/08/2021 04/08/2020, 06/01/2019, 04/29/2018, Additional history exists LDL CHOLESTEROL ANNUAL 04/08/2021 0, 10/09/2018, 04/08/2018, Additional history exists FIT-DNA Q 3 years 10/21/2022 10/21/2019 OSTEOPOROSIS SCREENING 08/04/2023 08/04/2018, 2017 INFLUENZA VACCINE (#1) 2025 9, 08/19/2014, 08/19/2014 COVID-19 Vaccine (4 - 2024-2 6 season) 2025 09/14/2021, 12/28/2020, 11/30/2020 COLORECTAL SCREENING 11/17/2026 11/18/2019, 11/18/19 Colorectal Cancer Screening 11/17/2026 Medical Devices Implanted Type Area Staff Design Engineer Device Identifier Shelf Expiration Date Model / Serial / Lot Lens Io Tecnis 1pc 21.5 [id number] - [id number] Implanted:Qty: 1 on 04/01/2017 by Jim Akers DO Eye Right: Eye [employer] 01/18/2021 [id number] / [id number] / Lens Io Tecnis 1pc 21.5 [id number] - [id number] Implanted:Qty: 1 on 04/15/2017 by Jim Akers DO Eye Left: Eye [employer] 01/31/2021 [id number] / [id number] / Procedures Procedure Name Priority Date/Time Associated Diagnosis Comments MICROALBUMIN/CREATIN INE RATIO, RANDOM UR Routine 04/08/2020 10:05 AM CDT LIPID PANEL Routine 04/08/2020 10:05 AM CDT HEMOGLOBIN A1C Routine 04/08/2020 10:05 AM CDT COLONOSCOPY REPORT 11/18/2019 10 :59 AM OLIVE PITTER COLON CANCER SCREEN, STOOL DNA Routine 10/21/2019 11:00 PM OLIVE PITTER MAMMO 3D RENETTA SCREEN BILAT W OR WO CAD Routine 01/05/2019 1:18 PM CDT Visit for screening mammogram [facility] DIABETES EYE EXAM 11/05/2018 12:00 AM OLIVE PITTER XR DEXA BONE DENSITY AXIAL 1 OR MORE SITES Routine 08/04/2018 10:12 AM OLIVE PITTER HPTH (hyperparathyroidis m) OCCULT BLOOD IMMUNOASSAY, COLORECTAL SCREEN Routine 04/30/2016 5:13 PM CDT from Last 3 Months or Most Recently Relevant to Health Maintenance Results * (ABNORMAL) MICROALBUMIN/CREATININE RATIO, RANDOM UR (04/08/2020 10:05 AM CDT) MICROALBUMIN, URINE 11.7 No Reference Range mg/dL 04/08/2020 4:07 PM CDT [facility] CREATININE, URINE 46.1 29.0 - 226.0 mg/dL 04/08/2020 4:07 PM CDT [facility] Comment:Reference Range vari es with fluid intake and diet. MICROALBUMIN/ CREAT RATIO, UR 253.8(H) <25.0 mg/g 04/08/2020 4:07 PM CDT [facility] Urine URINE SPECIMEN OBTAINED BY CLEAN CATCH PROCEDURE / Unknown Collection / Unknown 04/08/2020 10:05 AM CDT 04/08/2020 2:30 PM CDT Narrative [facility] - 04/08/2020 4:07 PM CDT Condition Microalbumin/Creat ratio Normal Males <17 Normal Females <25 Microalbuminuria Males 17-299 Microalbuminuria Females 25-299 Overt proteinuria >=300 Raymond Morrissey DO URINE ORDERABLES Final Result [facility] CLIA# [id number] [facility] [place] [address] * (ABNORMAL) HEMOGLOBIN A1C (04/08/2020 10:05 AM CDT) HEMOGLOBIN A1C 10.8(H) See Comment % 04/08/2020 3:02 PM CDT [facility] EST. AVG GLUCOSE, A1C 263 mg/dL 04/08/2020 3:02 PM CDT [facility] Blood Venipuncture / Unknown 04/08/2020 10:05 AM CDT 04/08/2020 2:31 PM CDT [facility] - 04/08/2020 3:02 PM CDT HGB A1C INTERPRETATION NORMAL: <5.7% PRE-DIABETES: 5.7 - 6.4% DIABETES: 6.5% OR GREATER Falsely low A1C measurements can occur when: 1. Anemia and/or hemolytic anemia is present. 2. Hemoglobin variants present. 3. Renal failure. 4. Transfusion of blood product in the last 120 days. We recommend ordering a fructosamine test([id number]) to more accurately assess glycemic status if any of the above conditions are present. Raymond Morrissey DO CHEMISTRY ORDERABLES Final Resul t [facility] CLIA# [id number] [address] [place] [address] * (ABNORMAL) LIPID PANEL (04/08/2020 10:05 AM CDT) CHOLESTEROL 174 <200 mg/dL 04/08/2020 3:23 PM CDT [facility] TRIGLYCERIDE 382(H) <150 mg/dL 04/08/2020 3:23 PM CDT [facility] HDL 37(L) 40 - 59 mg/dL 04/08/2020 3:23 PM CDT [facility] LDL CALCULATED 61 <100 mg/dL 04/08/2020 3:23 PM CDT [facility] NON-HDL CHOLESTEROL 137(H) <130 mg/dL 04/08/2020 3:23 PM CDT [facility] Blood Venipuncture / Unknown 04/08/2020 10:05 AM CDT 04/08/2020 2:32 PM CDT [facility] - 04/08/2020 3:23 PM CDT TOTAL CHOLESTEROL mg/dL Desirable <200 Borderline high 200-239 High >=240 TRIGLYCERIDES mg/dL Normal <150 Borderline high 150-199 High 200-499 Very high >=500 HDL CHOLESTEROL mg/dL Low <40 Normal 40-59 Desirable >=60 NON HDL CHOLESTEROL mg/dL Optimal <130 Near Optimal 130-159 Borderline High 160-189 Very High >=190 CALCULATED LDL mg/dL LDL <70, OPTIMAL if have Atherosclerotic cardiovascular disease (ASCVD) or intermediate or higher (>7.5%) 10 year risk of ASCVD including most adults with diabetes. LDL <100, Optimal in adult patients with low (<7.5%) 10 year ASCVD risk LDL 100-160, Suboptimal LDL >160, High LDL >190, Very high ATPIII Guidelines Reference Ranges for Lipid Panels (NCEP/AMA) . us Raymond Morrissey DO CHEMISTRY ORDERABLES Final Resul t [facility] CLIA# [id number] [address] [place] [address] * COLONOSCOPY REPORT (11/18/2019 10:59 AM OLIVE PITTER) Narrative Procedure Note Darrell Simms MD - 11/18/2019 10:59 AM CST Procedures signed by Darrell Simms MD at 11/18/2019 10:59 AM Author: Darrell Simms MD Service: -- Author Type: Physician Filed: 11/18/2019 10:59 AM Date of Service: 11/18/2019 10:59 AM Status:Signed Chipper: Darrell Simms MD (Physician) Procedure Orders 1. COLONOSCOPY REPORT [[id number]] ordered by Darrell Simms MDat 11/18/19 1059 [facility] GI Patient Name: Ambika Nichols Procedure Date: 11/18/2019 Date of : 1955 Admit Type: Outpatient Age: 64 Attending MD: Darrell Simms , Procedure: Colonoscopy Indications: This is the patient's first colonoscopy, Positive Cologuard test Providers: Darrell Simms Referring MD: Brielle Holcomb MD Medicines: Fentanyl 50 micrograms IV, Midazolam 3 mg IV Complications: No immediate complications. Procedure: After I obtained informed consent, the scope was passed under direct vision. Throughout the procedure, the patient's blood pressure, pulse, and oxygen saturations were monitored continuously. The Colonoscope was introduced through the anus and advanced to the terminal ileum, with identification of the appendiceal orifice and IC valve. The colonoscopy was performed without difficulty. The patient tolerated the procedure well. The quality of the bowel preparation was fair. Estimated Blood Loss: Estimated blood loss was minimal. Findings: The terminal ileum appeared normal. A 5 mm polyp was found in the ascending colon. The polyp was sessile. The polyp was removed with a cold snare. Resection and retrieval were complete. The exam was otherwise without abnormality on direct and retroflexion views. Impression: - Preparation of the colon was fair. - The examined portion of the ileum was normal. - One 5 mm polyp in the ascending colon, removed with a cold snare. Resected and retrieved. - The examination was otherwise normal on direct and retroflexion views. Recommendation: - Repeat colonoscopy in 7 years for surveillance. - The findings and recommendations were discussed with the designated responsible adult. - Thank you for the referral. Darrell Simms, 11/18/2019 10:59:14 AM Number of Addenda: 0 Note Initiated On: 11/18/2019 10:38 AM Scope Withdrawal Time 0 hours 9 minutes 4 seconds Scope In: 10:44:16 AM Scope Out: 10:56:31 AM [address] [place], [place] us Sgf Scanning GI PROCEDURE ORDERABLES Edited R esult - Final * (ABNORMAL) COLON CANCER SCREEN, STOOL DNA (10/21/2019 11:00 PM OLIVE PITTER) COLOGUARD RESULT Positive (A) Not Applicable 10/28/2019 10:26 PM OLIVE PITTER [facility] Comment: It is recommended that a positive Cologuard screen be clinically correlated and followed-up with a structural examination of the colon such as diagnostic colonoscopy. Colonoscopies performed for a positive Cologuard may find as the most clinically significant lesion: colorectal cancer [4.0%], advanced adenoma (including sessile serrated polyps greater than or equal to 1cm diameter) [20%] or non- advanced adenoma [31%]; or no colorectal neoplasia [45%]. These estimates are derived from a prospective cross-sectional screening study of 10,000 individuals at average risk for colorectal cancer who were screened with both Cologuard and colonoscopy. (Table 3, Erika Sheets al, N Engl J Med 2014;370(14):8699-0372.) Test Type: Composite algorithmic analysis of stool DNA-biomarkers with hemoglobin immunoassay. Quantitative values of individual biomarkers are not reportable and are not associated with individual biomarker result reference ranges. Precautions and Limitations: Cologuard is intended for colorectal cancer screening of adults of either sex, 50 years or older, who are at typical average-risk for colorectal cancer. A negative Cologuard test result does not guarantee the absence of colorectal cancer or advanced adenoma (pre-cancer). Patients with a negative Cologuard test result should be advised to continue participating in a colorectal cancer screening program. Cologuard may produce a positive result, even though a colonoscopy may not find colorectal cancer or precancerous polyps. The performance of Cologuard has been established in a cross sectional study (i.e., single point in time). Performance has not been evaluated in adults who have been previously tested with Cologuard or in patients less than 50 years of age. Cologuard has been approved for use by the [place].S. FDA. Cologuard performance data in a 10,000 patient pivotal study using colonoscopy as the reference method can be accessed at the following location: www.[employer].Xtium/results. Additional description of the Cologuard test process, warnings and precautions can be found at www.cologuardtest.com. Rx Only. Stool STOOL SPECIMEN / Unknown 10/21/2019 11:00 PM OLIVE PITTER 10/23/2019 4:30 PM OLIVE PITTER us Brielle Holcomb MD BODY FLUIDS AND STOOLS Final Result [facility] CLIA # [id number] [address], [address] [place] [address] * MAMMO SCRN BILAT 3D RENETTA W OR WO CAD (01/05/2019 1:18 PM CDT) Anatomical Region Laterality Modality Breast Bilateral Other Narrative 01/06/2019 1:22 PM CDT Bilateral Digital Mammogram with CAD and 3D Tomography Reason for Exam: Screening Comparison: Compared to: 11/04/2017 MAMMO SCREEN BILAT W OR WO CAD, 12/08/2014 MAMMO DIGITAL SCREEN BILAT, and 12/18/2000 MAMMO DIGITIZED STUDY Technique: 3D MLO and CC digital tomosynthesis images were acquired and synthesized 2D images (C view) were generated. This digital mammogram was also analyzed by the Computer Aided Detection System CAD). Breast Composition: The breasts are almost entirely fatty. There are no suspicious masses, areas of architectural distortions, or microcalcifications to suggest malignancy. No significant new findings since the prior mammogram(s). Procedure Note Ralph Jeong MD - 02/04/2021 Bilateral Digital Mammogram with CAD and 3D Tomography Reason for Exam: Screening Comparison: Compared to: 11/04/2017 MAMMO SCREEN BILAT W OR WO CAD, 12/08/2014 MAMMO DIGITAL SCREEN BILAT, and 12/18/2000 MAMMO DIGITIZED STUDY Technique: 3D MLO and CC digital tomosynthesis images were acquired and synthesized 2D images (C view) were generated. This digital mammogram was also analyzed by the Computer Aided Detection System CAD). Breast Composition: The breasts are almost entirely fatty. There are no suspicious masses, areas of architectural distortions, or microcalcifications to suggest malignancy. No significant new findings since the prior mammogram(s). us Brielle Holcomb MD MAMMO ORDERABLES Final Result * DIABETES EYE EXAM (11/05/2018 12:00 AM OLIVE PITTER) us [facility] Scanning HEALTH MAINTENANCE Final Result * XR DEXA BONE DENSITY AXIAL 1 OR MORE SITES (08/04/2018 10:12 AM OLIVE PITTER) Anatomical Region Laterality Modality Other Impressions 08/04/2018 4:55 PM OLIVE PITTER Abnormal examination Low bone density/osteopenia is present in the left proximal femur lying below the average of the patient's age-matched control consistent with early accelerated bone demineralization. Bone density lies in the range expected for age in the left distal radius. NOF guidelines recommend consideration of FDA-approved medical therapies in patients with FRAX determined 10-year probabilities of hip/major osteoporosis-related fractures equal or greater than 3%/20% respectively. Consider assessing fracture risk using the FRAX analysis tool for guidance of clinical management available online at www.shef.ac.uk/FRAX/. Enter [employer] for Select DXA and the Femoral Neck BMD value. Narrative 08/04/2018 4:55 PM OLIVE PITTER DEXA Evaluation of the Lumbar Spine, left forearm and Left Proximal Femur Reason for Consultation: Hyperparathyroidism. Evaluation of bone mineral density. The following absorptiometry data were obtained. The quality of this examination is acceptable with regards to count density, processed images, data display and lack of important artifacts (including but not limited to motion and attenuation artifacts). Serial examination number one. L1-L4 BMD (g/cm2): 1.192 Adult T-score: 0.1 Adult Z-score: 1.2 Left radius ultra distal/33%/total BMD (g/cm2): 0.256/0.550/0.489 Adult T-score: -0.6/-2.3/-1.2 Adult Z-score: 0.8/-0.9/0.2 Left femoral neck/total hip BMD (g/cm2): 0.754/0.828 Adult T-score: -1.9/-1.4 Adult Z-score: -0.8/-0.7 Procedure Note Ronnie Greene MD - 02/04/2021 DEXA Evaluation of the Lumbar Spine, left forearm and Left Proximal Femur Reason for Consultation: Hyperparathyroidism. Evaluation of bone mineral density. The following absorptiometry data were obtained. The quality of this examination is acceptable with regards to count density, processed images, data display and lack of important artifacts (including but not limited to motion and attenuation artifacts). Serial examination number one. L1-L4 BMD (g/cm2): 1.192 Adult T-score: 0.1 Adult Z-score: 1.2 Left radius ultra distal/33%/total BMD (g/cm2): 0.256/0.550/0.489 Adult T-score: -0.6/-2.3/-1.2 Adult Z-score: 0.8/-0.9/0.2 Left femoral neck/total hip BMD (g/cm2): 0.754/0.828 Adult T-score: -1.9/-1.4 Adult Z-score: -0.8/-0.7 IMPRESSION Abnormal examination Low bone density/osteopenia is present in the left proximal femur lying below the average of the patient's age-matched control consistent with early accelerated bone demineralization. Bone density lies in the range expected for age in the left distal radius. NOF guidelines recommend consideration of FDA-approved medical therapies in patients with FRAX determined 10-year probabilities of hip/major osteoporosis-related fractures equal or greater than 3%/20% respectively. Consider assessing fracture risk using the FRAX analysis tool for guidance of clinical management available online at www.shef.ac.uk/FRAX/. Enter [employer] for Select DXA and the Femoral Neck BMD value. [facility] ORDERABLES Final Result * OCCULT BLOOD IMMUNOASSAY, COLORECTAL SCREEN (04/30/2016 5:13 PM CDT) OCCULT BLOOD, STOOL Negative Negative 05/01/2016 9:52 AM CDT [facility] Stool STOOL SPECIMEN / Unknown Collection / Unknown 04/30/2016 5:13 PM CDT 04/30/2016 5:13 PM CDT Loreto Abdi MD BODY FLUIDS AND STOOLS Final Re sult [facility] CLIA# [id number] [address] [place] [address] from Last 3 Months or Most Recently Relevant to Health Maintenance Insurance [employer] O MCR
--- OUTSIDE RECORDS SUMMARY | 2025-06-04 10:00 | XMS_ITS | Encounter Summary ---
Author Organization [facility] Address [address] [place] [address] Care Team Providers Care Carbonator Name Role Phone Raymond Morrissey DO Primary Care Provider [phone] Encounter Details Date Type Department Care Team (Late st Contact Info) Description 05/28/2001 Outpatient Historical [facility] [address] [place] [address] Social History Tobacco Use Types Packs/Day Years Used Date Smoking Tobacco: Never Assessed Comments Unknown Sex and Gender Information Value Date Recorded Sex Assigned at Not on file Legal Sex Female 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
--- OUTSIDE RECORDS SUMMARY | 2025-06-04 10:00 | XMS_ITS | Clinical Summary ---
Author Organization [facility] Address [address] [place] [address] Care Team Providers Care Channel Development Director Name Role Phone Unavailable Primary Care Provider Unavailabl e Allergies No known active allergies Medications aspirin (ECOTRIN EC) 81 mg Tablet, Delayed Release (E.C.)Indications: Diabetes mellitus ([facility]) Take 1 Tab by mouth daily. 90 Tab 1 09/22/19 15 Active cholecalciferol, vitamin D3, 5,000 unit Take 400 Units by mouth daily. Active metFORMIN (GLUCOPHAGE) 1,000 mg tabletIndications: Type 2 diabetes mellitus with hyperglycemia, without long-term current use of insulin ([facility]) Take 1 Tablet (1,000 mg) by mouth daily with breakfast. 90 Tablet 04/08/20 20 Active desvenlafaxine (PRISTIQ) 50 mg Extended Release 24 hour tabletIndications: Menopause Take 1 Tablet (50 mg) by mouth daily with breakfast. Take 1 in am for 14 days and call in 10 days 90 Tablet 4 04/08/20 20 Active amLODIPine (NORVASC) 10 mg tabletIndications: Essential hypertension Take 1 Tablet (10 mg) by mouth daily. awv due in sep Tablet 4 04/08/20 20 Active simvastatin (ZOCOR) 40 mg tabletIndications: Hypercholesteremia Take 1 Tablet (40 mg) by mouth daily. 90 Tablet 4 04/08/20 20 Active lisinopriL (PRINIVIL) 40 mg tabletIndications: Essential hypertension,CKD (chronic kidney disease) stage 3, GFR 30-59 ml/min ([facility]) Take 1 Tablet (40 mg) by mouth daily. 90 Tablet 4 04/08/20 20 Active insulin detemir U-100 (Levemir FlexTouch U-100 Insuln) 100 unit/mL pen syringeIndications :Type 2 diabetes mellitus with hyperglycemia, without long-term current use of insulin ([facility]) Inject 42 units subcutaneously BID. E11.65 30 mL 6 04/08/20 20 Active pramipexole (Mirapex) 0.25 mg tabletIndications: Restless leg syndrome Take 1 Tablet (0.25 mg) by mouth daily at bedtime. 90 Tablet 1 04/08/20 20 Active traMADoL (ULTRAM) 50 mg tabletIndications: Chronic bilateral low back pain without sciatica Take 2 Tablets (100 mg) by mouth 2 times daily as needed for Pain. 60 Tablet 1 04/08/20 20 Active levothyroxine 100 mcg tabletIndications: Hypothyroidism, unspecified type,Type 2 diabetes mellitus with stage 3 chronic kidney disease, with long-term current use of insulin ([facility]),Essentia l hypertension,Hyper lipidemia, unspecified hyperlipidemia type,Hyperparathyr oidism Take 1 Tablet (100 mcg) by mouth daily residential therapist. 90 Tablet 04/10/20 20 Active tiZANidine (ZANAFLEX) 4 mg TabletIndications: Muscle spasm Take 1 Tablet (4 mg) by mouth nightly as needed for Spasm. 90 Tablet 4 04/10/20 20 Active Jardiance 25 mg tablet TAKE 1 TABLET BY MOUTH ONCE DAILY IN THE MORNING 90 Tablet 08/03/20 20 Active Active Problems Problem Noted Date Diagnosed Date Vitamin D deficiency 10/14/2019 Hypercholesteremia 10/14/2019 Hyperparathyroidism 06/01/2019 Pseudophakia of both eyes 04/01/2017 Dry eyes, bilateral 02/19/2017 Type 2 diabetes mellitus, wi thout long-term current use of insulin 02/19/2017 Dot and blot hemorrhage 02/19/2017 CKD (chronic kidney disease) stage 3, GFR 30-59 ml/min 04/09/2016 Overview (04/10/2020): ACTION 04/09/2020 GFR decreased from 50s to 38. Recheck in 3-4 weeks. Type 2 diabetes with stage 3 chronic kidney disease GFR 30-59 04/09/2016 Overview (09/03/2017): DISABILITY MEDICARE SINCE 2014 Pituitary adenoma 09/22/2014 Overview (09/22/2014): resection done at [facility] in 02/2014. Hypothyroidism, unspecified 08/19/2014 Overview (04/10/2020): ACTION 04/08/20 TSH 2.43 88 mcg. Increase to 100 mcg. Recheck in 3 month. Essential hypertension 08/19/2014 Sensory hearing loss, unilateral 08/05/2014 Overview (08/05/2014): profound right ear Resolved Problems Problem Noted Date Diagnosed Date Resolved Date Combined forms of age-relate d cataract of left eye 02/19/2017 04/16/2017 Immunizations Immunization Administration Dates Next Due (PNEUMOVAX [...] Never Smokeless Tobacco: Never Tobacco Cessation:Counseling Given: Yes Alcohol Use Standard Drinks/Week Comments No 0 (1 standard drink = 0.6 oz pur e alcohol) Comments No Sex and Gender Information Value Date Recorded Sex Assigned at Not on file Legal Sex Female 6:19 AM CASTING ASSOCIATE Gender Identity Not on file Sexual Orientation Not on file Occupation Industry Job Start Date Job End Date Not on file Not on file Not on file Not on file Last Filed Vital Signs Vital Sign Reading Time Taken Comments Blood Pressure 138/70 04/08/2020 8:41 AM CDT Pulse 80 04/08/2020 8:41 AM CDT Temperature 36.3 C (97.4 F) 10/14/2019 1:35 PM CASTING ASSOCIATE Respiratory Rate 18 11/18/2019 11:05 AM CASTING ASSOCIATE Oxygen Saturation 96% 04/08/2020 8:41 AM CDT Inhaled Oxygen Concentration - - Weight 77.3 kg (170 lb 6.4 oz) 04/08/2020 8:41 A M CDT Height 172.7 cm (5' 8 ) 04/08/2020 8:41 AM CDT Body Mass Index 25.91 04/08/2020 8:41 AM CDT Plan of Treatment Health Maintenance Due Date Last Done Comments DTAP/TDAP/TD VACCINES (1 - Tdap) 02/24/1972 Flex Sig/CT Colonography Q 5 years 1998 ZOSTER VACCINE (1 of 2) 2003 FIT/FOBT Q 1 year 04/30/2017 04/30/2016 DIABETES ANNUAL RETINAL EXAM 11/05/2019, 02/19/2017, 02/19/2017, Additional history exists DIABETES HBA1C Q 6 MONTHS 10/09/20202019, 06/01/2019, 09/19/2018, Additional history exists PNEUMOCOCCAL VACCINE 50+ YEA RS (2 of 2 - PCV) 10/14/2020 10/14/2019 BREAST CANCER SCREENING 01/05/2021 01/06/20 19, 11/04/2017, 12/08/2014 DIABETES ANNUAL FOOT EXAM 04/08/20212019, 01/09/2018, 08/28/2017, Additional history exists DIABETES MICROALBUMIN ANNUAL SCREEN 04/08/2021 04/08/2020, 06/01/2019, 04/29/2018, Additional history exists LDL CHOLESTEROL ANNUAL 04/08/2021 0, 10/09/2018, 04/08/2018, Additional history exists FIT-DNA Q 3 years 10/21/2022 10/21/2019 OSTEOPOROSIS SCREENING 08/04/2023 08/04/2018 INFLUENZA VACCINE (#1) 2025 9, 08/19/2014, 08/19/2014 COLORECTAL SCREENING 11/17/2026 11/18/2019, 11/18/19 Colorectal Cancer Screening 11/17/2026 RSV VACCINE (60+ or ) (1 - 1-dose 75+ series) 02/24/2028 Medical Devices Implanted Type Area Compressor Assembler Device Identifier Shelf Expiration Date Model / Serial / Lot Lens Io Tecnis 1pc 21.5 [id number] - [id number] Implanted:Qty: 1 on 04/01/2017 by Jim Akers, DO at [facility] Right: Eye [employer] 01/18/2021 [id number] / [id number] / Lens Io Tecyessenia 1pc 21.5 [id number] - [id number] Implanted:Qty: 1 on 04/15/2017 by Jim Akers, DO at [facility] Left: Eye [employer] 01/31/2021 [id number] / [id number] / Procedures Procedure Name Priority Date/Time Associated Diagnosis Comments MICROALBUMIN/CREATIN INE RATIO, RANDOM UR Routine 04/08/2020 10:05 AM CDT Essential hypertension CKD (chronic kidney disease) stage 3, GFR 30-59 ml/min ([facility]) Type 2 diabetes mellitus with hyperglycemia, without long-term current use of insulin ([facility]) LIPID PANEL Routine 04/08/2020 10:05 AM CDT Hypercholesteremia Screening, ischemic heart disease HEMOGLOBIN A1C Routine 04/08/2020 10:05 AM CDT Type 2 diabetes mellitus with hyperglycemia, without long-term current use of insulin ([facility]) COLONOSCOPY REPORT 11/18/2019 11 :00 AM CASTING ASSOCIATE COLON CANCER SCREEN, STOOL DNA Routine 10/21/2019 11:00 PM CASTING ASSOCIATE Screening for colon cancer MAMMO 3D RENETTA SCREEN BILAT W OR WO CAD Routine 01/05/2019 1:18 PM CDT Visit for screening mammogram HM DIABETES EYE EXAM Routine 11/05/2018 XR DEXA BONE DENSITY AXIAL 1 OR MORE SITES Routine 08/04/2018 10:12 AM CASTING ASSOCIATE HPTH (hyperparathyroidis m) OCCULT BLOOD IMMUNOASSAY, COLORECTAL SCREEN Routine 04/30/2016 5:13 PM CDT Visit for screening mammogram from Last 3 Months or Most Recently Relevant to Health Maintenance Results * (ABNORMAL) MICROALBUMIN/CREATININE RATIO, RANDOM UR (04/08/2020 10:05 AM CDT) MICROALBUMIN, URINE 11.7 No Reference Range mg/dL 04/08/2020 4:07 PM CDT [facility] CREATININE, URINE 46.1 29.0 - 226.0 mg/dL 04/08/2020 4:07 PM CDT [facility] Comment:Reference Range vari es with fluid intake and diet. MICROALBUMIN/ CREAT RATIO, UR 253.8(H) <25.0 mg/g 04/08/2020 4:07 PM CDT [facility] Urine URINE SPECIMEN OBTAINED BY CLEAN CATCH PROCEDURE / Unknown Collection / Unknown 04/08/2020 10:05 AM CDT 04/08/2020 2:30 PM CDT [facility] - 04/08/2020 4:07 PM CDT Condition Microalbumin/Creat ratio Normal Males <17 Normal Females <25 Microalbuminuria Males 17-299 Microalbuminuria Females 25-299 Overt proteinuria >=300 Raymond Morrissey DO URINE ORDERABLES Final Result [facility]# [id number] [address] [place] [address] * (ABNORMAL) HEMOGLOBIN A1C (04/08/2020 10:05 AM CDT) HEMOGLOBIN A1C 10.8(H) See Comment % 04/08/2020 3:02 PM CDT [facility] EST. AVG GLUCOSE, A1C 263 mg/dL 04/08/2020 3:02 PM CDT [facility] Blood Venipuncture / Unknown 04/08/2020 10:05 AM CDT 04/08/2020 2:31 PM CDT [facility] - 04/08/2020 3:02 PM CDT HGB A1C INTERPRETATION NORMAL: <5.7% PRE-DIABETES: 5.7 - 6.4% DIABETES: 6.5% OR GREATER Falsely low A1C measurements can occur when: 1. Anemia and/or hemolytic anemia is present. 2. Hemoglobin variants present. 3. Renal failure. 4. Transfusion of blood product in the last 120 days. We recommend ordering a fructosamine test(PXC3283) to more accurately assess glycemic status if any of the above conditions are present. Raymond Morrissey DO CHEMISTRY ORDERABLES Final Resul t [facility] CLIA# [id number] [address] [place] [address] * (ABNORMAL) LIPID PANEL (04/08/2020 10:05 AM CDT) [facility] Signature CHOLESTEROL 174 <200 mg/dL 04/08/2020 3:23 PM CDT [facility] TRIGLYCERIDE 382(H) <150 mg/dL 04/08/2020 3:23 PM CDT [facility] HDL 37(L) 40 - 59 mg/dL 04/08/2020 3:23 PM CDT [facility] LDL CALCULATED 61 <100 mg/dL 04/08/2020 3:23 PM CDT [facility] NON-HDL CHOLESTEROL 137(H) <130 mg/dL 04/08/2020 3:23 PM T [facility] Blood Venipuncture / Unknown 04/08/2020 10:05 AM CDT 04/08/2020 2:32 PM CDT Narrative [facility] - 04/08/2020 3:23 PM [...] Reference Ranges for Lipid Panels (NCEP/AMA) . Raymond Morrissey DO CHEMISTRY ORDERABLES Final Resul t [facility] CLIA# [id number] [address] [place] [address] * COLONOSCOPY REPORT (11/18/2019 11:00 AM CASTING ASSOCIATE) Narrative Procedure Note Darrell Simms MD - 11/18/2019 10:59 AM CST [facility] [place] [facility] Patient Name: Ambika Nichols Procedure Date: [...] In: 10:44:16 AM Scope Out: 10:56:31 AM [address] [place], [place] Darrell Simms MD GI PROCEDURE ORDERABLES Final Result * (ABNORMAL) COLON CANCER SCREEN, STOOL DNA (10/21/2019 11:00 PM CASTING ASSOCIATE) COLOGUARD RESULT Positive (A) Not Applicable [facility] Comment: It is recommended that a positive [...] Erika Sheets al, N Engl J Med 2014;370(14):5415-3827.) Test Type: Composite algorithmic analysis of stool [...] can be accessed at the following location: [email or web address]. Additional description of the Cologuard test process, warnings and precautions can be found at [email or web address]. Rx Only. Stool STOOL SPECIMEN / Unknown 10/21/2019 11:00 PM CASTING ASSOCIATE 10/23/2019 4:30 PM CASTING ASSOCIATE us Brielle Holcomb MD BODY FLUIDS AND STOOLS Final Result [facility] CLIA # [id number] [address], [address] [place] [address] * MAMMO SCRN BILAT 3D RENETTA W OR WO CAD (01/05/2019 1:18 PM CDT) Anatomical Region Laterality Modality Breast Bilateral Mammography Narrative 01/06/2019 1:24 PM CDT Bilateral Digital Mammogram with CAD [...] Holcomb MD MAMMO ORDERABLES Final Result * HM DIABETES EYE EXAM (11/05/2018) Abstract Spg Provider HEALTH MAINTENANCE Final R esult * XR DEXA BONE DENSITY AXIAL 1 OR MORE SITES (08/04/2018 10:12 AM CASTING ASSOCIATE) Anatomical Region Laterality Modality Nuclear Medicine 08/04/2018 10:1 2 AM CASTING ASSOCIATE Impressions 08/04/2018 4:55 PM CASTING ASSOCIATE IMPRESSION: Abnormal examination Low bone density/osteopenia is present [...] clinical management available online at [email or web address] Enter [employer]Cloud for Select DXA and the Femoral Neck BMD value. Narrative 08/04/2018 4:55 PM CASTING ASSOCIATE DEXA Evaluation of the Lumbar Spine, left [...] -0.8/-0.7 Procedure Note Ronnie Greene MD - 08/04/2018 DEXA Evaluation of the Lumbar Spine, left [...] 0.754/0.828 Adult T-score: -1.9/-1.4 Adult Z-score: -0.8/-0.7 IMPRESSION: Abnormal examination Low bone density/osteopenia is present [...] clinical management available online at [email or web address] Enter [employer] for Select DXA and the Femoral Neck BMD value. Ada [facility]AG[facility] ORDERABLES Final Result * OCCULT BLOOD IMMUNOASSAY, COLORECTAL SCREEN (04/30/2016 5:13 PM CDT) Pathologist [facility] OCCULT BLOOD, STOOL Negative Negative 05/01/2016 9:52 AM CDT [facility] Stool STOOL SPECIMEN / Unknown Collection / Unknown 04/30/2016 5:13 PM CDT 04/30/2016 5:13 PM CDT us Loreto Abdi MD BODY FLUIDS AND STOOLS Final Re sult [facility]# [id number] [address] [place] [address] from Last 3 Months or Most Recently Relevant to Health Maintenance Advance Directives For more information, please contact: [phone] * Full Code (Latest Code Status on File) Date Activated Date Inactivated Comments 11/18/2019 10:15 AM 11/18/2019 1:45 PM * Full Code Date Activated Date Inactivated Comments 04/15/2017 7:13 AM 04/15/2017 11:07 AM * Full Code Date Activated Date Inactivated Comments 04/01/2017 6:56 AM 04/01/2017 10:16 AM
--- OUTSIDE RECORDS SUMMARY | 2025-06-04 10:00 | XMS_ITS | Encounter Summary ---
Author Organization [facility] Address [address] [place] [address] Care Team Providers Care Product Finisher Name Role Phone Raymond Morrissey DO Primary Care Provider Encounter Details Date Type Department Care Team (Latest Contact Info) Description 07/15/2001 Outpatient Historical [facility] [address] [place] [address] Filiberto Ramirez MD [address] [place] [address] LOCAL SKIN INFECTION NOS (Primary Dx); COUGH; DIABETES UNCOMPL ADULT-TYPE II (CMS/HCC) Social History Tobacco Use Types Packs/Day Years Used Date Smoking Tobacco: Never Assessed Comments Unknown Sex and Gender Information Value Date Recorded Sex Assigned at Not on file Legal Sex Female 6:19 AM CABLE RIGGER Gender Identity Not on file Sexual Orientation Not on file documented as of this encounter Plan of Treatment Not on file documented as of this encounter Visit Diagnoses Diagnosis Unspecified local infection of skin and subcutaneous tissue- Primary Cough Type II or unspecified type diabetes mellitus without mention of complication, not stated as uncontrolled documented in this encounter Care Teams Product Finisher Relationship Specialty Start Date End Date Raymond Morrissey DO PCP - General Family Practice 04/11/20 11/16/20 documented as of this encounter
--- OUTSIDE RECORDS SUMMARY | 2025-06-04 10:00 | XMS_ITS | Encounter Summary ---
Author Organization [facility] Address [address] [place] [address] Care Team Providers Care Family Literacy Coordinator Name Role Phone Raymond Morrissey DO Primary Care Provider Encounter Details Date Type Department Care Team (Latest Contact Info) Description 05/28/2001 Outpatient Historical [facility] [address] [place] [address] Filiberto Ramirez MD [address] [place] [address] Type II or unspecified type diabetes mellitus without mention of complication, not stated as uncontrolled (Primary Dx); Unspecified menopausal and postmenopausal disorder; Dermatophytosis of nail; Unspecified essential hypertension Social History Tobacco Use Types Packs/Day Years Used Date Smoking Tobacco: Never Assessed Comments Unknown Sex and Gender Information Value Date Recorded Sex Assigned at Not on file Legal Sex Female 6:19 AM OPERATING ROOM TECHNOLOGIST Gender Identity Not on file Sexual Orientation Not on file documented as of this encounter Plan of Treatment Not on file documented as of this encounter Visit Diagnoses Diagnosis Type II or unspecified type diabetes mellitus without mention of complication, not stated as uncontrolled- Primary Unspecified menopausal and postmenopausal disorder Dermatophytosis of nail Unspecified essential hypertension documented in this encounter Care Teams Family Literacy Coordinator Relationship Specialty Start Date End Date Raymond Morrissey DO PCP - General Family Practice 7/27/20 3/3/21 documented as of this encounter
--- OUTSIDE RECORDS SUMMARY | 2025-06-04 10:00 | XMS_ITS | Encounter Summary ---
Author Organization [facility] Address [address] [place] [address] Care Team Providers Care Contracting Officer Name Role Phone Raymond Morrissey DO Primary Care Provider Encounter Details Date Type Department Care Team (Latest Contact Info) Description 02/19/2001 [facility] [address] [place] [address] Filiberto Ramirez MD [address] [place] [address] Type II or unspecified type diabetes mellitus without mention of complication, not stated as uncontrolled (Primary Dx); Unspecified essential hypertension; Headache(784.0); Unspecified menopausal and postmenopausal disorder; Encounter for long-term (current) use of other medications Social History Tobacco Use Types Packs/Day Years Used Date Smoking Tobacco: Never Assessed Comments Unknown Sex and Gender Information Value Date Recorded Sex Assigned at Not on file Legal Sex Female 6:19 AM BURNISHER AND BUMPER Gender Identity Not on file Sexual Orientation Not on file documented as of this encounter Plan of Treatment Not on file documented as of this encounter Visit Diagnoses Diagnosis Type II or unspecified type diabetes mellitus without mention of complication, not stated as uncontrolled- Primary Unspecified essential hypertension Headache(784.0) Headache Unspecified menopausal and postmenopausal disorder Encounter for long-term (current) use of other medications documented in this encounter Care Teams Contracting Officer Relationship Specialty Start Date End Date Raymond Morrissey DO PCP - General Family Practice 04/11/20 11/16/20 documented as of this encounter
--- OUTSIDE RECORDS SUMMARY | 2025-06-04 10:00 | XMS_ITS | Encounter Summary ---
Author Organization [facility] Address [address] [place] [address] Care Team Providers Care General Cleaner Name Role Phone Raymond Morrissey Kaylan SARMIENTO Primary Care Provider [phone] Encounter Details Date Type Department Care Team (Late st Contact Info) Description 12/01/2014 Ancillary Orders [facility] [address] [facility] [address] [place] [id number] Loreto Abdi MD [address] [place] [address] Other screening mammogram (Primary Dx) Social History Tobacco Use Types Packs/Day Years Used Date Smoking Tobacco: Never Smokeless Tobacco: Never Alcohol Use Standard Drinks/Week Comments No 0 (1 standard drink = 0.6 oz pur e alcohol) Comments No Sex and Gender Information Value Date Recorded Sex Assigned at Not on file Legal Sex Female 6:19 AM SPA DIRECTOR/FINANCE Gender Identity Not on file Sexual Orientation Not on file Occupation Industry Job Start Date Job End Date Not on file Not on file Not on file Not on file documented as of this encounter Plan of Treatment Not on file documented as of this encounter Results * MAMMO DIGITIZED STUDY (12/18/2000 12:35 PM CDT) Narrative Brigid Watson - 12/01/2014 12:35 PM CDT This exam was auto finalized to allow images to be scanned to PACS. us Loreto Abdi MD DIAGNOSTIC IMAGING ORDERABLES F inal Result documented in this encounter Visit Diagnoses Diagnosis Other screening mammogram Other screening mammogram- Primary documented in this encounter Care Teams General Cleaner Relationship Specialty Start Date End Date Raymond Morrissey DO PCP - General Family Practice 04/11/20 11/16/20 documented as of this encounter
--- OUTSIDE RECORDS SUMMARY | 2025-06-04 10:00 | XMS_ITS | Encounter Summary ---
Author Organization [facility] Address [address] [place] [address] Care Team Providers Care Medical Instrument Technician Name Role Phone Yuni Raymond Kaylan SARMIENTO Primary Care Provider [phone] Reason for Referral * Radiology Services (Routine) - Closed Specialty Diagnoses / Procedures Referred By Rich t Referred To Contact Diagnoses Visit for screening mammogram Procedures MAMMO SCRN BILAT 3D RENETTA W OR WO CAD CHG SCREENING MAMMOGRAPHY BI 2-VIEW BREAST INC CAD CHG SCREENING DIGITAL BREAST TOMOSYNTHESIS BI Brielle Holcomb MD Phone: tel: fax: Referral ID Status Reason Start Date Expiration Date Visits Re quested Visits Authorized [id number] Closed 12/03/2018 01/03/2020 1 1 Encounter Details Date Type Department Care Team (Latest Contact Info) Description 12/03/2018 Ancillary Orders [facility] Pre-Registration [place] CALL TO MAKE APPOINTMENT ONLY [address] [place] [address] Brielle Holcomb MD [address] [place] [address] Visit for screening mammogram Social History Tobacco Use Types Packs/Day Years Used Date Smoking Tobacco: Never Smokeless Tobacco: Never Alcohol Use Standard Drinks/Week Comments No 0 (1 standard drink = 0.6 oz pur e alcohol) Comments No Sex and Gender Information Value Date Recorded Sex Assigned at Not on file Legal Sex Female 6:19 AM INSURANCE TERRITORY MANAGER Gender Identity Not on file Sexual Orientation Not on file Occupation Industry Job Start Date Job End Date Not on file Not on file Not on file Not on file documented as of this encounter Plan of Treatment Not on file documented as of this encounter Results * MAMMO SCRN BILAT 3D RENETTA W [...] significant new findings since the prior mammogram(s). Brielle Holcomb MD MAMMO ORDERABLES Final Result documented in this encounter Visit Diagnoses Diagnosis Visit for screening mammogram Other screening mammogram Visit for screening mammogram Other screening mammogram documented in this encounter Care Teams Medical Instrument Technician Relationship Specialty Start Date End Date Raymond Morrissey DO PCP - General Family Practice 04/11/20 11/16/20 documented as of this encounter
--- OUTSIDE RECORDS SUMMARY | 2025-06-04 10:00 | XMS_ITS | Encounter Summary ---
Author Organization [facility] Address [address] [place] [address] Care Team Providers Care Service Rig Operator Name Role Phone Raymond Morrissey DO Primary Care Provider [phone] Encounter Details Date Type Department Care Team (Latest Contact Info) Description 12/18/2000 Outpatient Historical [facility] Woody Mays [address] [place] [phone] Kian Bloom MD NO ADDRESS ON FILE Other screening mammogram (Primary Dx) Social History Tobacco Use Types Packs/Day Years Used Date Smoking Tobacco: Never Assessed Comments Unknown Sex and Gender Information Value Date Recorded Sex Assigned at Not on file Legal Sex Female 6:19 AM SENIOR DATA WAREHOUSE DEVELOPER Gender Identity Not on file Sexual Orientation Not on file documented as of this encounter Plan of Treatment Not on file documented as of this encounter Visit Diagnoses Diagnosis Other screening mammogram- Primary documented in this encounter Care Teams Service Rig Operator Relationship Specialty Start Date End Date Raymond Morrissey DO PCP - General Family Practice 04/11/20 11/16/20 documented as of this encounter
--- OUTSIDE RECORDS SUMMARY | 2025-06-04 10:00 | XMS_ITS | Encounter Summary ---
Author Organization [facility] Address [address] [place] [address] Care Team Providers Care Real Estate Agent Name Role Phone Raymond Morrissey DO Primary Care Provider Encounter Details Date Type Department Care Team (Latest Contact Info) Description 10/02/2001 Outpatient Historical [facility] [address] [place] [address] Filiberto Ramirez MD [address] [place] [address] DIABETES UNCOMPL ADULT-TYPE II (CMS/HCC) (Primary Dx); HYPERTENSION NOS Social History Tobacco Use Types Packs/Day Years Used Date Smoking Tobacco: Never Assessed Comments Unknown Sex and Gender Information Value Date Recorded Sex Assigned at Not on file Legal Sex Female 6:19 AM RELAY CHECKER Gender Identity Not on file Sexual Orientation Not on file documented as of this encounter Plan of Treatment Not on file documented as of this encounter Visit Diagnoses Diagnosis Type II or unspecified type diabetes mellitus without mention of complication, not stated as uncontrolled- Primary Unspecified essential hypertension documented in this encounter Care Teams Real Estate Agent Relationship Specialty Start Date End Date Raymond Morrissey DO PCP - General Family Practice 04/11/20 11/16/20 documented as of this encounter
--- OUTSIDE RECORDS SUMMARY | 2025-06-04 10:00 | XMS_ITS | Encounter Summary ---
Author Organization [facility] Address [address] [place] [address] Care Team Providers Care Camp Counselor Name Role Phone Raymond Morrissey DO Primary Care Provider [phone] Encounter Details Date Type Department Care Team (Latest Contact Info) Description 04/17/2006 Outpatient Historical [facility] Orthoped[facility]- 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
--- OUTSIDE RECORDS SUMMARY | 2025-06-04 10:00 | XMS_ITS | Encounter Summary ---
Author Organization [facility] Address [address] [place] [address] Care Team Providers Care Bit Sander Name Role Phone Raymond Morrissey Kaylan SARMIENTO Primary Care Provider Reason for Visit * Reason Onset Date Comments Needs Orders Written 07/23/2017 Encounter Details Date Type Department Care Team (Late st Contact Info) Description 07/23/2017 Telephone [facility] Woody Mays Reg[address] 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 Gender Identity Not on file Sexual Orientation Not on file Occupation Industry Job Start Date Job End Date Not on file Not on file Not on file Not on file documented as of this encounter Plan of Treatment Not on file documented as of this encounter Procedures Procedure Name Priority Date/Time Associated Diagnosis Comments EDUCATION DIABETES, TYPE 2 Routine 07/23/2017 11:50 AM EMPLOYEE REPRESENTATIVE documented in this encounter Results * EDUCATION DIABETES, TYPE 2 - PEREZ (07/23/2017 11:50 AM EMPLOYEE REPRESENTATIVE) Education Name DIABETES, TYPE 2 PEREZ EDUCATION INTERFACE Education URL [email or web address] PEREZ EDUCATION INTERFACE EDUCATION ACCESS CODE [id number] PEREZ EDUCATION INTERFACE EDUCATION ISSUE DATE Jul 23, 2017 PEREZ EDUCATION INTERFACE EDUCATION START DATE PEREZ EDUCATION INTERFACE EDUCATION COMPLETED DATE This program was not started and flagged as on: Aug 23, 2017 PEREZ EDUCATION INTERFACE EDUCATION EXPIRATION DATE Aug 22, 2017 PEREZ EDUCATION INTERFACE EDUCATION MESSAGE EVENT PEREZ EDUCATION INTERFACE 07/23/2017 11:5 0 AM EMPLOYEE REPRESENTATIVE us Audrey Edwards MD EXTERNAL EDUCATION ORDERABLES Fi nal Result PEREZ EDUCATION INTERFACE documented in this encounter Visit Diagnoses Not on filedocumented in this encounter Care Teams Bit Sander Relationship Specialty Start Date End Date Raymond Morrissey DO PCP - General Family Practice 04/11/20 11/16/20 documented as of this encounter
--- OUTSIDE RECORDS SUMMARY | 2025-06-04 10:00 | XMS_ITS | Encounter Summary ---
Author Organization [facility] Address [address] [place] [address] Care Team Providers Care Customs Verifier Name Role Phone Raymond Morrissey DO Primary Care Provider [phone] Encounter Details Date Type Department Care Team (Latest Contact Info) Description 05/14/[address] [facility] Orthopedics- 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
--- OUTSIDE RECORDS SUMMARY | 2025-06-04 10:00 | XMS_ITS | Encounter Summary ---
Author Organization [facility] Address [address] 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
--- OUTSIDE RECORDS SUMMARY | 2025-06-04 10:00 | XMS_ITS | Encounter Summary ---
Author Organization [facility] Address [address] [place] [address] Care Team Providers Care Telesales Consultant Name Role Phone Raymond Morrissey DO Primary Care Provider Encounter Details Date Type Department Care Team (Latest Contact Info) Description 03/26/2006 Outpatient Historical [facility] Orthopedics- 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
--- NOTE | 2025-06-04 10:09 | ED_ITS ---
HPI - Nausea/Vomiting/Diarrhea 2 General: Chief complaint: Nausea/Vomiting/Diarrhea Stated complaint: n/v/d Time Seen by Provider: 06/04/25 09:54 Source: patient Mode of arrival: ambulatory Limitations: no limitations History of Present Illness: 70-year-old female states she had went o ut to eat on Saturday night and shortly after became ill. She states that she has been having vomiting diarrhea that night and yesterday. She states that she has not vomited or had diarrhea since last night but still feels dehydrated and weak. She denies any abdominal pain currently states on Saturday while vomiting she had a near syncopal event. She denies any chest pain or headache Associated nausea: Yes Associated symtoms: Reports nausea Related Data Home Medications ?Medication ?Instructions ?Recorded ?Confirmed magnesium glycinate 118 mg PO DAILY 02/16/25 aspirin 81 mg tablet 81 mg PO DAILY 05/24/2505/17 desvenlafaxine succinate 50 mg 50 mg PO DAILY 06/04/25 06/04/25 tablet,extended release 24 hr Previous Rx's ?Medication ?Instructions ?Recorded blood-glucose transmitter (Dexcom #1 ea 10/19/24 G6 Transmitter device) blood-glucose,hospital unit clerk,cont #1 ea 10/19/24 (Dexcom G6 Bottom Hoop Driver) blood sugar diagnostic (Blood #50 ea 12/09/24 Glucose Test strips) blood-glucose meter #1 ea 12/09/24 lancets 32 gauge (E-Z Ject Lancets) #100 ea 12/09/24 empagliflozin 25 mg tablet 25 mg PO DAILY 90 days #90 tabs 02/23/25 (Jardiance) hydrochlorothiazide 12.5 mg tablet 12.5 mg PO QAM 90 d ays #90 tabs 02/23/25 levothyroxine 88 mcg tablet 88 mcg PO DAILY 90 days #9 0 tabs 02/23/25 lisinopril 40 mg tablet 40 mg PO DAILY 90 days #90 t abs 02/23/25 metoprolol succinate 50 mg 50 mg PO DAILY 90 days #90 tabs 02/23/25 tablet,extended release 24 hr rivaroxaban 20 mg tablet (Xarelto) 20 mg PO DAILY 90 d ays #90 tabs 02/23/25 blood-glucose sensor (Dexcom G7 #3 ea 02/25/25 Sensor device) baclofen 5 mg tablet 5 mg PO BID PRN muscle spasm #60 03/16/25 tabs amlodipine 10 mg tablet 10 mg PO DAILY PRN bp 90 day s #90 05/13/25 tabs sulfamethoxazole 800 1 tab PO Q12H 7 days #14 tab s 05/26/25 mg-trimethoprim 160 mg tablet (Bactrim DS) enoxaparin 80 mg/0.8 mL 80 mg (0.8 mL) SUBCUT DIR ECTED 05/27/25 subcutaneous syringe (Lovenox) #4.8 mL ondansetron 4 mg disintegrating 4 mg PO Q6H PRN nausea and 06/04/25 tablet vomiting #14 tabs Allergies Allergy/AdvReac Type Severity Reaction Status Date / Time No Known Allergies Allergy Verified 05/26/25 10:15 Review of Systems 2 GI: Reports: nausea and vomiting; Denies: abdominal pain PFSH ED 2 PFSH: Medical History Pancreatic mass A-fib Hyperlipidemia Thrombocytopenia Hyperglycemia Vomiting CKD (chronic kidney disease) Diabetic neuropathy Esophageal thickening Elevated troponin Anemia Acute kidney injury Menopausal symptoms Relates she takes antidepressant for this DJD (degenerative joint disease) Hypothyroidism Pituitary tumor s/p post surgery at [facility] 2019? Hypertension DM type 2 (diabetes mellitus, type 2) Surgical History History of hysterectomy History of H/O pituitary neoplasm Status post resection Family History Other CAD (coronary artery disease) Social History Smoking and tobacco/nicotine status: never used tobacco/nicotine Second hand smoke exposure: No Alcohol intake: never Substance/Drug Use: never Female Reproductive History: Spontaneous abortions: No Physical Exam 2 Const: COMMON NORMALS: no acute distress, patient oriented x3 and healthy appearing HENMT: COMMON NORMALS: normocephalic and atraumatic HEAD & SCALP: n ormocephalic and atraumatic Eye: COMMON NORMALS: Equal, round and reactive pupils present and EOMs intact bilaterally PUPIL: Yes Equal, round and reactive pupils present Neck/C-Spine: COMMON NORMALS: full ROM and supple Chest: COMMONS NORMALS: normal inspection of the chest and normal palpation of entire chest wall Resp: COMMON NORMALS: normal respiratory effort, No retractions, No use of accessory muscles and clear to auscultation bilaterally AUSCULTATION: clear to auscultation bilaterally Cardio: COMMON NORMALS: regular rate, regular rhythm and No murmurs present (Cardio) RATE: regular rate RHYTHM: regular rhythm GI: COMMON NORMALS: Normal to inspection, nondistended, normoactive bowel sounds present, Soft to palpation, non-tender and no masses PALPATION: Yes Soft to palpation Extremity: COMMON NORMALS: normal to inspection and full ROM Neuro: COMMON NORMALS: patient oriented x3, moves all extremities and no focal motor deficits Psych: COMMON NORMALS: mental status grossly normal, Normal thought process present and cooperative THOUGHT PROCESS: Normal thought process present Skin: COMMON NORMALS: no rashes or lesions noted and no wounds GENERAL SKIN EXAM: no rashes or lesions noted Course 2 Vital Signs: Vital signs: Vital Signs Temperature 98.4 F 06/04/25 09:56 Pulse Rate 84 06/04/25 09:56 Respiratory Rate 17 06/04/25 09:56 Blood Pressure 117/75 06/04/25 09:56 Pulse Oximetry 94 06/04/25 09:56 Oxygen Delivery Me thod Room Air 06/04/25 09:56 MDM - Nausea/Vomiting/Diarrhea Medical Decision Making Patient presents here with vomiting diarrhea is likely food poisoning she has not had any vomiting in over 12 hours. She is able to tolerate p.o. here she feels much improved here after IV fluids did give her IV Zofran as well. Does have a slight bump in her creatinine to 2.2 with baseline on the last 1 was 1.7 no significant kidney injury. She is still making urine we will prescribe her Zofran for home she is to continue to push fluids at home return if worsening she understands agrees to plan. Medical Records I reviewed the patient's medical records. Lab Data I reviewed the patient's lab results. 06/04/25 10:52 06/04/25 10:52 Laboratory Results WBC 8.13 10^3/uL (3.29-11.43) 06/04/25 10:52 RBC 3.94 10^6/uL (3.85-5.65) 06/04/25 10:52 Hgb 10.50 g/dL (11.27-16.99) L 06/04/25 10:52 Hct 34.4 % (36-47) L 06/04/25 10:52 MCV 87.3 fl (85-98) 06/04/25 10:52 MCH 26.6 pg (27-33) L 06/04/25 10:52 MCHC 30.5 g/dL (30-55) 06/04/25 10:52 RDW 14.2 % (12.1-15.1) 06/04/25 10:52 Plt Count 139 10^3/cmm (157-399) L 06/04/25 10:52 MPV 9.6 fL (7.4-10.4) 06/04/25 10:52 Neut % (Auto) 70.5 % 06/04/25 10:52 Lymph % (Auto) 15.1 % 06/04/25 10:52 [place] % (Auto) 13.0 % 06/04/25 10:52 Eos % (Auto) 0.6 % 06/04/25 10:52 Baso % (Auto) 0.6 % 06/04/25 10:52 Neut # (Auto) 5.72 10^3/uL (1.8-7.7) 06/04/25 10:52 Lymph # (Auto) 1.2 10^3/uL (0.8-4.8) 06/04/25 10:52 [place] # (Auto) 1.1 10^3/uL (0.2-0.9) H 06/04/25 10:52 Eos # (Auto) 0.1 10^3/uL (0.0-0.8) 06/04/25 10:52 Baso # (Auto) 0.1 10^3/uL (0.0-0.1) 06/04/25 10:52 Nucleated RBC % (auto) 0 % 06/04/25 10:52 Nucleated RBCs # 0.0 /100WBC 06/04/25 10:52 Sodium 134 mmol/L (136-145) L 06/04/25 10:52 Potassium 5.1 mmol/L (3.5-5.1) 06/04/25 10:52 Chloride 99 mmol/L (98-107) 06/04/25 10:52 Carbon Dioxide 21 mmol/L (22-29) L 06/04/25 10:52 Anion Gap 19.1 (5-19) H 06/04/25 10:52 BUN 37 mg/dL (8-23) H 06/04/25 10:52 Creatinine 2.2 mg/dL (0.5-0.9) H 06/04/25 10:52 GFR Calculation Not Reportable 06/04/25 10:52 Glucose 243 mg/dL (65-115) H 06/04/25 10:52 Calculated Osmolality 295 mOsm/kg (285-295) 06/04/25 10:52 Calcium 8.5 mg/dL (8.5-10.5) 06/04/25 10:52 Total Bilirubin 0.4 mg/dL (0.15-1.2) 06/04/25 10:52 AST 14 U/L (0-32) 06/04/25 10:52 ALT 16 U/L (0-33) 06/04/25 10:52 Alkaline Phosphatase 94 U/L (35-105) 06/04/25 10:52 Total Protein 6.4 g/dL (6.6-8.7) L 06/04/25 10:52 Albumin 3.1 g/dL (3.5-5.2) L 06/04/25 10:52 Globulin 3.3 g/dL (1.3-4.6) 06/04/25 10:52 Lipase 11 U/L (13-60) L 06/04/25 10:52 All radiology interpretation(s) finalized by discharge Discharge Plan Discharge Patient Disposition: Home Clinical Impression: Vomiting Condition: Stable Prescriptions: New ondansetron 4 mg tablet,disintegrating 4 mg PO Q6H PRN (Reason: nausea and vomiting) Qty: 14 0RF No Action (DME) Dexcom G6 Bottom Hoop Driver Misc See Rx Instructions .ROUTE .MEDSUPPLY Qty: 1 0RF Rx Instructions: As directed (DME) Dexcom G6 Transmitter Device See Rx Instructions .ROUTE .MEDSUPPLY Qty: 1 0RF Rx Instructions: As directed (DME) Blood Glucose Test Strip See Rx Instructions .Route Qty: 50 0RF Rx Instructions: As directed (DME) blood-glucose meter Kit See Rx Instructions .Route Qty: 1 0RF Rx Instructions: As directed (DME) E-Z Ject Lancets 32 gauge misc See Rx Instructions .Route Qty: 100 0RF Rx Instructions: As directed baclofen 5 mg tablet 5 mg PO BID PRN (Reason: muscle spasm) Qty: 60 3RF Xarelto 20 mg tablet 20 mg PO DAILY 90 Days Qty: 90 2RF Rx Instructions: must administer with evening meal 340B metoprolol succinate 50 mg tablet extended release 24 hr 50 mg PO DAILY 90 Days Qty: 90 2RF Jardiance 25 mg tablet 25 mg PO DAILY 90 Days Qty: 90 2RF Rx Instructions: 340B levothyroxine 88 mcg tablet 88 mcg PO DAILY 90 Days Qty: 90 2RF lisinopril 40 mg tablet 40 mg PO DAILY 90 Days Qty: 90 2RF Rx Instructions: 340B hydrochlorothiazide 12.5 mg tablet 12.5 mg PO QAM 90 Days Qty: 90 2RF aspirin 81 mg tablet 81 mg PO DAILY sulfamethoxazole-trimethoprim [Bactrim DS] 800-160 mg tablet 1 tab PO Q12H 7 Days Qty: 14 0RF (DME) Dexcom G7 Sensor Device See Rx Instructions .ROUTE .COMPLEX Qty: 3 3RF Dose Instruction: USE DIRECTED Rx Instructions: USE DIRECTED amlodipine 10 mg tablet 10 mg PO DAILY PRN (Reason: bp) 90 Days Qty: 90 0RF Rx Instructions: Hold for low bp enoxaparin [Lovenox] 80 mg/0.8 mL syringe 80 mg SUBCUT DIRECTED Qty: 4.8 0RF Rx Instructions: 06/01- last dose of Xarelto and Aspirin 06/02, 06/03, & 06/04 take one injection of Lovenox in the AM & PM Nothing on 06/05 & 06/06 magnesium glycinate 118 mg magnesium Capsule 118 mg PO DAILY desvenlafaxine succinate 50 mg tablet extended release 24 hr 50 mg PO DAILY Discharge Orders: Discharge ED (Routine); Ordered 06/04/25 Ordered By: Josefina Fernandez Referrals: Marcia Flannery MD [Primary Care Provider, Family Practice] - 4-7 days Discharge Diet: Advance as tolerated Discharge Activity: Resume usual activity Patient Instructions: Acute Nausea and Vomiting (ED) Print Language: [place] Coding Level of Care Code ED Telecommunications Support for Chintan Persaud
[2025-06-04 10:56] LABS: Hematocrit 34.4 % (36-47); Hemoglobin 10.50 g/dL (11.27-16.99); Mean Corpuscular HGB Conc 30.5 g/dL (30-55); Mean Corpuscular Hemoglobin 26.6 pg (27-33); Mean Corpuscular Volume 87.3 fl (85-98); Nucleated Red Blood Cells % 0 %; Platelet Count 139 10^3/cmm (157-399); Red Blood Count 3.94 10^6/uL (3.85-5.65); White Blood Count 8.13 10^3/uL (3.29-11.43)
[2025-06-04 11:13] LABS: Alanine Aminotransferase 16 U/L (0-33); Albumin Level 3.1 g/dL (3.5-5.2); Alkaline Phosphatase 94 U/L (35-105); Anion Gap 19.1 (5-19); Aspartate Amino Transferase 14 U/L (0-32); Blood Urea Nitrogen 37 mg/dL (8-23); Calcium 8.5 mg/dL (8.5-10.5); Carbon Dioxide 21 mmol/L (22-29); Chloride 99 mmol/L (98-107); Creatinine Clr Calc Pharmacy 25.4038; Globulin 3.3 g/dL (1.3-4.6); Glucose 243 mg/dL (65-115); Lipase 11 U/L (13-60); Osmolality Calculated 295 mOsm/kg (285-295); Potassium 5.1 mmol/L (3.5-5.1); Sodium 134 mmol/L (136-145); Total Protein 6.4 g/dL (6.6-8.7)
[2025-06-04] MEDS: ondansetron 2 mg/ML SDV 2 mL 4 MG IVP (11:28)
--- NOTE | 2025-06-04 11:56 | PC.PHAR ---
Patient has stopped the asprin and Xaralto in preparation for her Lovenox shot .Directions on RX in profile.
== END 2025-06-04 12:48 | disposition home or self-care (01) ==
PROVIDERS: Emergency Provider Emergency Medicine; PCP Family Medicine
DX: R11.10 Vomiting, unspecified (principal); Z79.82 Long term (current) use of aspirin; E11.22 Type 2 diabetes mellitus with diabetic chronic kidney disease; I12.9 Hypertensive chronic kidney disease with stage 1 through stage 4 chronic kidney disease, or unspecified chronic kidney disease; N18.9 Chronic kidney disease, unspecified
CPT/HCPCS: 80053; 83690; 85025; 96361; 96374; 99284; J2405; J7030

== ENCOUNTER 2025-06-18 05:52 | Emergency (ER) | payer MEDICARE, SELFPAY ==
--- OUTSIDE RECORDS SUMMARY | 2025-06-18 05:58 | XMS_ITS | Clinical Summary ---
[facility] Organization [facility] Address [address] [place] [address] Care Team Providers Care Rv Servicer Name Role Phone Unavailable Primary Care Provider Unavailabl e Allergies No known active allergies Medications aspirin (ECOTRIN EC) 81 mg Tablet, Delayed Release (E.C.)Indications:Diab etes mellitus Take 1 Tab by mouth daily. 90 Tab 1 015 Active cholecalciferol, vitamin D3, 5,000 unit Take 400 Units by mouth daily. Active metFORMIN (GLUCOPHAGE) 1,000 mg tabletIndications:Type 2 diabetes mellitus with hyperglycemia, without long-term current use of insulin Take 1 Tablet (1,000 mg) by mouth daily with breakfast. 90 Tablet 020 Active desvenlafaxine (PRISTIQ) 50 mg Extended Release 24 hour tabletIndications:Harrison pause Take 1 Tablet (50 mg) by mouth daily with breakfast. Take 1 in am for 14 days and call in 10 days 90 Tablet 4 020 Active amLODIPine (NORVASC) 10 mg tabletIndications:Esse ntial hypertension Take 1 Tablet (10 mg) by mouth daily. awv due in sep Tablet 4 020 Active simvastatin (ZOCOR) 40 mg tabletIndications:Hype rcholesteremia Take 1 Tablet (40 mg) by mouth daily. 90 Tablet 4 020 Active lisinopriL (PRINIVIL) 40 mg tabletIndications:Esse ntial hypertension,CKD (chronic kidney disease) stage 3, GFR 30-59 ml/min ([facility]) Take 1 Tablet (40 mg) by mouth daily. 90 Tablet 4 020 Active insulin detemir U-100 (Levemir FlexTouch U-100 Insuln) 100 unit/mL pen syringeIndications:Typ e 2 diabetes mellitus with hyperglycemia, without long-term current use of insulin Inject 42 units subcutaneously BID. E11.65 30 mL 6 020 Active pramipexole (Mirapex) 0.25 mg tabletIndications:Rest less leg syndrome Take 1 Tablet (0.25 mg) by mouth daily at bedtime. 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 90 Tablet 020 Active tiZANidine (ZANAFLEX) 4 mg TabletIndications:Musc le spasm Take 1 Tablet (4 mg) by mouth nightly as needed for Spasm. 90 Tablet 4 020 Active Jardiance 25 mg tablet TAKE 1 TABLET BY MOUTH ONCE DAILY IN THE MORNING 90 Tablet 020 Active Active Problems Problem Noted Date Diagnosed [...] adenoma 09/22/2014 Overview (09/22/2014): resection done at [facility] in 02/2014. 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 Gender Identity Not on file Sexual Orientation Not on file Occupation Industry Job Start Date Job End Date Not on file Not on file Not on file Not on file Last Filed Vital Signs Vital Sign Reading Time Taken Comments Blood Pressure 138/70 04/08/2020 8:41 AM CDT Pulse 80 04/08/2020 8:41 AM CDT Temperature 36.3 C (97.4 F) 10/14/2019 1:35 PM VENDING MACHINE OPERATOR Respiratory Rate 18 11/18/2019 11:05 AM VENDING MACHINE OPERATOR Oxygen Saturation 96% 04/08/2020 8:41 AM CDT [...] series) 02/24/2028 Medical Devices Implanted Type Area Office Rental Clerk Device Identifier Shelf Expiration Date Model / Serial / Lot Lens Io Tecyessenia 1pc 21.5 [id number] - [id number] Implanted:Qty: 1 on 04/01/2017 by Jim Akers DO at [facility] Right: Eye [employer] 01/18/2021 [id number] / [id number] / Lens Io Tecnis 1pc 21.5 [id number] - [id number] Implanted:Qty: 1 on 04/15/2017 by Jim Akers, DO at [facility] Left: Eye [employer] 01/31/2021 [id number] / [id number] / Procedures Procedure Name Priority Date/Time Associated Diagnosis Comments MICROALBUMIN/CREATIN INE RATIO, RANDOM UR Routine 04/08/2020 10:05 AM CDT Essential hypertension CKD (chronic kidney disease) stage 3, GFR 30-59 ml/min ([facility]) Type 2 diabetes mellitus with hyperglycemia, without long-term current use of insulin ([facility]) LIPID PANEL Routine 04/08/2020 10:05 AM CDT Hypercholesteremia Screening, ischemic heart disease HEMOGLOBIN A1C Routine 04/08/2020 10:05 AM CDT Type 2 diabetes mellitus with hyperglycemia, without long-term current use of insulin ([facility]) COLONOSCOPY REPORT 11/18/2019 11 :00 AM VENDING MACHINE OPERATOR COLON CANCER SCREEN, STOOL DNA Routine 10/21/2019 11:00 PM VENDING MACHINE OPERATOR Screening for colon cancer MAMMO 3D RENETTA SCREEN BILAT W OR WO CAD Routine 01/05/2019 1:18 PM CDT Visit for screening mammogram HM DIABETES EYE EXAM Routine 11/05/2018 XR DEXA BONE DENSITY AXIAL 1 OR MORE SITES Routine 08/04/2018 10:12 AM VENDING MACHINE OPERATOR HPTH (hyperparathyroidis m) OCCULT BLOOD IMMUNOASSAY, COLORECTAL SCREEN Routine 04/30/2016 5:13 PM CDT Visit for screening mammogram from Last 3 Months or Most Recently Relevant to Health Maintenance Results * (ABNORMAL) MICROALBUMIN/CREATININE RATIO, RANDOM UR (04/08/2020 10:05 AM CDT) MICROALBUMIN, URINE 11.7 No Reference Range mg/dL 04/08/2020 4:07 PM CDT [facility] CREATININE, URINE 46.1 29.0 - 226.0 mg/dL 04/08/2020 4:07 PM CDT [facility] Comment:Reference Range vari es with fluid intake and diet. MICROALBUMIN/ CREAT RATIO, UR 253.8(H) <25.0 mg/g 04/08/2020 4:07 PM CDT [facility] Urine URINE SPECIMEN OBTAINED BY CLEAN CATCH PROCEDURE / Unknown Collection / Unknown 04/08/2020 10:05 AM CDT 04/08/2020 2:30 PM CDT [facility] - 04/08/2020 4:07 PM CDT Condition Microalbumin/Creat ratio Normal Males <17 Normal Females <25 Microalbuminuria Males 17-299 Microalbuminuria Females 25-299 Overt proteinuria >=300 Raymond Morrissey DO URINE ORDERABLES Final Result [facility]# [id number] [address] [place] [id number] * (ABNORMAL) HEMOGLOBIN A1C (04/08/2020 10:05 AM CDT) HEMOGLOBIN A1C 10.8(H) See Comment % 04/08/2020 3:02 PM CDT [facility] EST. AVG GLUCOSE, A1C 263 mg/dL 04/08/2020 3:02 PM CDT [facility] Blood Venipuncture / Unknown 04/08/2020 10:05 AM CDT 04/08/2020 2:31 PM CDT [facility] - 04/08/2020 3:02 PM CDT HGB A1C INTERPRETATION NORMAL: <5.7% PRE-DIABETES: 5.7 - 6.4% DIABETES: 6.5% OR GREATER Falsely low A1C measurements can occur when: 1. Anemia and/or hemolytic anemia is present. 2. Hemoglobin variants present. 3. Renal failure. 4. Transfusion of blood product in the last 120 days. We recommend ordering a fructosamine test([id number]) to more accurately assess glycemic status if any of the above conditions are present. Raymond Morrissey DO CHEMISTRY ORDERABLES Final Resul t [facility] CLIA# [id number] [facility] [place] [address] * (ABNORMAL) LIPID PANEL (04/08/2020 10:05 AM CDT) CHOLESTEROL 174 <200 mg/dL 04/08/2020 3:23 PM CDT [facility] TRIGLYCERIDE 382(H) <150 mg/dL 04/08/2020 3:23 PM CDT [facility] HDL 37(L) 40 - 59 mg/dL 04/08/2020 3:23 PM CDT [facility] LDL CALCULATED 61 <100 mg/dL 04/08/2020 3:23 PM CDT [facility] NON-HDL CHOLESTEROL 137(H) <130 mg/dL 04/08/2020 3:23 PM CDT [facility] Blood Venipuncture / Unknown 04/08/2020 10:05 AM CDT 04/08/2020 2:32 PM CDT [facility] - 04/08/2020 3:23 PM [...] Morrissey DO CHEMISTRY ORDERABLES Final Resul t [facility] CLIA# [id number] [address] [place] [address] * COLONOSCOPY REPORT (11/18/2019 11:00 AM VENDING MACHINE OPERATOR) Narrative Procedure Note Darrell Simms MD - 11/18/2019 10:59 AM CST [facility] GI Patient Name: Ambika Nichols Procedure Date: [...] Scope Out: 10:56:31 AM [address] [place], [place] Darrell Simms MD GI PROCEDURE ORDERABLES Final Result * (ABNORMAL) COLON CANCER SCREEN, STOOL DNA (10/21/2019 11:00 PM VENDING MACHINE OPERATOR) COLOGUARD RESULT Positive (A) Not Applicable [facility] Comment: It is recommended that a [...] Erika Sheets al, N Engl J Med 2014;370(14):5492-3014.) Test Type: Composite algorithmic analysis of stool [...] can be accessed at the following location: [email or web address]. Additional description of the Cologuard test process, warnings and precautions can be found at [email or web address]. Rx Only. Stool STOOL SPECIMEN / Unknown 10/21/2019 11:00 PM VENDING MACHINE OPERATOR 10/23/2019 4:30 PM VENDING MACHINE OPERATOR Brielle Holcomb MD BODY FLUIDS AND STOOLS Final Result [employer] CLIA # [id number] [address] [facility], [address] [place] [address] * MAMMO SCRN BILAT 3D RENETTA W [...] 1 OR MORE SITES (08/04/2018 10:12 AM VENDING MACHINE OPERATOR) Anatomical Region Laterality Modality Nuclear Medicine 08/04/2018 10:1 2 AM VENDING MACHINE OPERATOR Impressions 08/04/2018 4:55 PM VENDING MACHINE OPERATOR IMPRESSION: Abnormal examination Low bone density/osteopenia is [...] clinical management available online at [email or web address] Enter [employer] for Select DXA and the Femoral Neck BMD value. Narrative 08/04/2018 4:55 PM VENDING MACHINE OPERATOR DEXA Evaluation of the Lumbar Spine, left [...] clinical management available online at [email or web address] Enter [employer] for Select DXA and the Femoral Neck BMD value. Ada SUTTON DIAGNOSTIC IMAGING ORDERABLES Final Result * OCCULT BLOOD IMMUNOASSAY, COLORECTAL SCREEN (04/30/2016 5:13 PM CDT) OCCULT BLOOD, STOOL Negative Negative 05/01/2016 9:52 AM CDT [facility] Stool STOOL SPECIMEN / Unknown Collection / Unknown 04/30/2016 5:13 PM CDT 04/30/2016 5:13 PM CDT us Loreto Abdi MD BODY FLUIDS AND STOOLS Final Re jonelle [facility]# [id number] [address] [place] [address] from Last 3 Months or Most Recently Relevant to Health Maintenance Advance Directives For more information, please contact: [phone] * Full Code (Latest Code Status on File) Date Activated Date Inactivated Comments 11/18/2019 10:15 AM 11/18/2019 1:45 PM * Full Code Date Activated Date Inactivated Comments 04/15/2017 7:13 AM 04/15/2017 11:07 AM * Full Code Date Activated Date Inactivated Comments 04/01/2017 6:56 AM 04/01/2017 10:16 AM
--- OUTSIDE RECORDS SUMMARY | 2025-06-18 05:58 | XMS_ITS | Clinical Summary ---
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 60 Tablet 1 020 Active simvastatin (ZOCOR) 40 mg tabletIndications:Hype rcholesteremia Take 1 Tablet (40 mg) by mouth daily. 90 Tablet 4 020 Active amLODIPine (NORVASC) 10 mg tabletIndications:Esse ntial hypertension Take 1 Tablet (10 mg) by mouth daily. awv due in sep 90 Tablet 4 Active desvenlafaxine (PRISTIQ) 50 mg Extended Release 24 hour tabletIndications:Maritza pause Take 1 Tablet (50 mg) by mouth daily with breakfast. Take 1 in am for 14 days and call in 10 days 90 Tablet 4 020 Active lisinopriL (PRINIVIL) 40 mg tabletIndications:Esse ntial hypertension,CKD (chronic kidney disease) stage 3, GFR 30-59 ml/min (CMS/HCC) Take 1 Tablet (40 mg) by mouth daily. 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 90 Tablet 0 020 Active insulin detemir U-100 (Levemir FlexTouch U-100 Insuln) 100 unit/mL pen syringeIndications:Typ e 2 diabetes mellitus with hyperglycemia, without long-term current use of insulin Inject 42 units subcutaneously BID. E11.65 30 mL 6 020 Active empagliflozin (Jardiance) 25 mg tablet TAKE 1 TABLET BY MOUTH ONCE DAILY IN THE MORNING 90 Tablet 0 020 Active OneTouch Ultra Test Strip USE as directed TO test blood sugar Active OneTouch Ultra2 Meter USE DIRECTED TO test blood sugar Active Dexcom G7 Sensor Device use as directed Active OneTouch Delica Plus Lancet 33 gauge USE DIRECTED TO test blood sugar ONCE DAILY Active pravastatin (PRAVACHOL) 40 mg tablet Take 1 Tablet by mouth daily. Active Xarelto 20 mg Tablet TAKE 1 TABLET BY MOUTH ONCE DAILY FOR 90 DAYS; must administer with evening meal Active Active Problems Problem Noted Date Diagnosed [...] adenoma 09/22/2014 Overview (01/12/2021): resection done at [facility] in 02/2014. Hypothyroidism, unspecified 08/19/2014 Overview (01/12/2021): [...] on file Legal Sex Female 2:55 AM RECYCLING CREW SUPERVISOR Gender Identity Not on file Sexual Orientation Not on file Last Filed Vital Signs Vital Sign Reading Time Taken Comments Blood Pressure 156/62 02/01/2025 1:49 PM CDT Pulse 80 04/08/2020 8:41 AM CDT Temperature 36.3 C (97.4 F) 10/14/2019 1:35 PM RECYCLING CREW SUPERVISOR Respiratory Rate 18 11/18/2019 11:05 AM RECYCLING CREW SUPERVISOR Oxygen Saturation - - Inhaled Oxygen Concentration - - Weight 79.4 kg (175 lb) 02/01/2025 1:49 PM CDT Height 170.2 cm (5' 7 ) 02/01/2025 1:49 PM CDT Body Mass Index 27.41 02/01/2025 1:49 PM CDT Plan of Treatment Upcoming Encounters Date Type Department Care Team (Late st Contact Info) Description 02/02/2026 2:30 PM CDT Office Visit [facility] [address] [place] [address] Boo Rubin MD [address] [place] [address] Health Maintenance Due Date Last [...] Screening 11/17/2026 Medical Devices Implanted Type Area Procedure Writer Device Identifier Shelf Expiration Date Model / Serial / Lot Lens Io Tecnis 1pc 21.5 [id number] - [id number] Implanted:Qty: 1 on 04/01/2017 by Jim Akers DO Eye Right: Eye [employer] 01/18/2021 [id number] / [id number] / Lens Io Tecnis 1pc 21.5 [id number] - [id number] Implanted:Qty: 1 on 04/15/2017 by Jim Akers DO Eye Left: Eye [employer] 01/31/2021 [id number] / [id number] / Procedures Procedure Name Priority Date/Time Associated Diagnosis Comments MICROALBUMIN/CREATIN INE RATIO, RANDOM UR Routine 04/08/2020 10:05 AM CDT LIPID PANEL Routine 04/08/2020 10:05 AM CDT HEMOGLOBIN A1C Routine 04/08/2020 10:05 AM CDT COLONOSCOPY REPORT 11/18/2019 10 :59 AM RECYCLING CREW SUPERVISOR COLON CANCER SCREEN, STOOL DNA Routine 10/21/2019 11:00 PM RECYCLING CREW SUPERVISOR MAMMO 3D RENETTA SCREEN BILAT W OR WO CAD Routine 01/05/2019 1:18 PM CDT Visit for screening mammogram HM DIABETES EYE EXAM 11/05/2018 12:00 AM RECYCLING CREW SUPERVISOR XR DEXA BONE DENSITY AXIAL 1 OR MORE SITES Routine 08/04/2018 10:12 AM RECYCLING CREW SUPERVISOR HPTH (hyperparathyroidis m) OCCULT BLOOD IMMUNOASSAY, COLORECTAL SCREEN Routine 04/30/2016 5:13 PM CDT from Last 3 Months or Most Recently Relevant to Health Maintenance Results * (ABNORMAL) MICROALBUMIN/CREATININE RATIO, RANDOM UR (04/08/2020 10:05 AM CDT) MICROALBUMIN, URINE 11.7 No Reference Range mg/dL 04/08/2020 4:07 PM CDT [facility] CREATININE, URINE 46.1 29.0 - 226.0 mg/dL 04/08/2020 4:07 PM CDT [facility] Comment:Reference Range vari es with fluid intake and diet. MICROALBUMIN/ CREAT RATIO, UR 253.8(H) <25.0 mg/g 04/08/2020 4:07 PM CDT [facility] Urine URINE SPECIMEN OBTAINED BY CLEAN CATCH PROCEDURE / Unknown Collection / Unknown 04/08/2020 10:05 AM CDT 04/08/2020 2:30 PM CDT Narrative [facility] - 04/08/2020 4:07 PM CDT Condition Microalbumin/Creat ratio Normal Males <17 Normal Females <25 Microalbuminuria Males 17-299 Microalbuminuria Females 25-299 Overt proteinuria >=300 Raymond Morrissey DO URINE ORDERABLES Final Result [facility] [place]# [id number] [facility] [place] [address] * (ABNORMAL) HEMOGLOBIN A1C (04/08/2020 10:05 AM CDT) HEMOGLOBIN A1C 10.8(H) See Comment % 04/08/2020 3:02 PM CDT [facility] EST. AVG GLUCOSE, A1C 263 mg/dL 04/08/2020 3:02 PM CDT [facility] Blood Venipuncture / Unknown 04/08/2020 10:05 AM CDT 04/08/2020 2:31 PM CDT [facility] - 04/08/2020 3:02 PM CDT HGB A1C INTERPRETATION NORMAL: <5.7% PRE-DIABETES: 5.7 - 6.4% DIABETES: 6.5% OR GREATER Falsely low A1C measurements can occur when: 1. Anemia and/or hemolytic anemia is present. 2. Hemoglobin variants present. 3. Renal failure. 4. Transfusion of blood product in the last 120 days. We recommend ordering a fructosamine test([id number]) to more accurately assess glycemic status if any of the above conditions are present. Raymond Morrissey DO CHEMISTRY ORDERABLES Final Resul t [facility] CLIA# [id number] [address] [place] [address] * (ABNORMAL) LIPID PANEL (04/08/2020 10:05 AM CDT) CHOLESTEROL 174 <200 mg/dL 04/08/2020 3:23 PM CDT [facility] TRIGLYCERIDE 382(H) <150 mg/dL 04/08/2020 3:23 PM CDT [facility] HDL 37(L) 40 - 59 mg/dL 04/08/2020 3:23 PM T [facility] LDL CALCULATED 61 <100 mg/dL 04/08/2020 3:23 PM CDT [facility] NON-HDL CHOLESTEROL 137(H) <130 mg/dL 04/08/2020 3:23 PM CDT [facility] Blood Venipuncture / Unknown 04/08/2020 10:05 AM CDT 04/08/2020 2:32 PM CDT [facility] - 04/08/2020 3:23 [...] Morrissey DO CHEMISTRY ORDERABLES Final Resul t [facility]# [id number] [facility] [place] [address] * COLONOSCOPY REPORT (11/18/2019 10:59 AM RECYCLING CREW SUPERVISOR) Narrative Procedure Note Darrell Simms MD - 11/18/2019 10:59 AM CST Procedures signed by Darrell Simms MD at 11/18/2019 10:59 AM Author: Darrell Simms MD Service: -- Author Type: Physician Filed: 11/18/2019 10:59 AM Date of Service: 11/18/2019 10:59 AM Status:Signed Cook Helper Pastry: Darrell Simms MD (Physician) Procedure Orders 1. COLONOSCOPY REPORT [[id number]] ordered by Darrell Simms MDat 11/18/19 1059 [facility] GI Patient Name: Ambika Nichols Procedure [...] In: 10:44:16 AM Scope Out: 10:56:31 AM [address] [place] [facility] GI PROCEDURE ORDERABLES Edited R esult - Final * (ABNORMAL) COLON CANCER SCREEN, STOOL DNA (10/21/2019 11:00 PM RECYCLING CREW SUPERVISOR) COLOGUARD RESULT Positive (A) Not Applicable 10/28/2019 10:26 PM RECYCLING CREW SUPERVISOR [employer] Comment: It is recommended that a positive [...] Erika Sheets al, N Engl J Med 2014;370(14):8040-6820.) Test Type: Composite algorithmic analysis of stool [...] can be accessed at the following location: [email or web address]. Additional description of the Cologuard test process, warnings and precautions can be found at [email or web address]. Rx Only. Stool STOOL SPECIMEN / Unknown 10/21/2019 11:00 PM RECYCLING CREW SUPERVISOR 10/23/2019 4:30 PM RECYCLING CREW SUPERVISOR us Brielle Holcomb MD BODY FLUIDS AND STOOLS Final Result [employer] CLIA # [id number] [address], [address] [place] [address] * MAMMO SCRN BILAT 3D RENETTA W [...] Final Result * HM DIABETES EYE EXAM (11/05/2018 12:00 AM RECYCLING CREW SUPERVISOR) us [facility] HEALTH MAINTENANCE Final Result * XR DEXA BONE DENSITY AXIAL 1 OR MORE SITES (08/04/2018 10:12 AM RECYCLING CREW SUPERVISOR) Anatomical Region Laterality Modality Other Impressions 08/04/2018 4:55 PM RECYCLING CREW SUPERVISOR Abnormal examination Low bone density/osteopenia is present [...] clinical management available online at [email or web address] Enter [employer] for Select DXA and the Femoral Neck BMD value. Narrative 08/04/2018 4:55 PM RECYCLING CREW SUPERVISOR DEXA Evaluation of the Lumbar Spine, left [...] clinical management available online at [email or web address] Enter [employer] for Select DXA and the Femoral Neck BMD value. Ada SUTTON DIAGNOSTIC IMAGING ORDERABLES Final Result * OCCULT BLOOD IMMUNOASSAY, COLORECTAL SCREEN (04/30/2016 5:13 PM CDT) OCCULT BLOOD, STOOL Negative Negative 05/01/2016 9:52 AM CDT [facility] Stool STOOL SPECIMEN / Unknown Collection / Unknown 04/30/2016 5:13 PM CDT 04/30/2016 5:13 PM CDT Loreto Abdi MD BODY FLUIDS AND STOOLS Final Re sult [facility] CLIA# [id number] [facility] [place] [address] from Last 3 Months or Most Recently Relevant to Health Maintenance Insurance [employer] O MCR
--- OUTSIDE RECORDS SUMMARY | 2025-06-18 05:58 | XMS_ITS | Encounter Summary ---
Author Organization [facility] Address [address] [place] [address] Care Team Providers Care Laminator Printed Circuit Boards Name Role Phone Raymond Morrissey DO Primary Care Provider [phone] Encounter Details Date Type Department Care Team (Latest Contact Info) Description 12/18/2000 Outpatient Historical [facility] [place] [address] [place] [phone] Kian Bloom MD NO ADDRESS ON FILE Other screening mammogram (Primary Dx) Social History Tobacco Use Types Packs/Day Years Used Date Smoking Tobacco: Never Assessed Comments Unknown Sex and Gender Information Value Date Recorded Sex Assigned at Not on file Legal Sex Female 6:19 AM INTELLIGENCE INTERN Gender Identity Not on file Sexual Orientation Not on file documented as of this encounter Plan of Treatment Not on file documented as of this encounter Visit Diagnoses Diagnosis Other screening mammogram- Primary documented in this encounter Care Teams Laminator Printed Circuit Boards Relationship Specialty Start Date End Date Raymond Morrissey DO PCP - General Family Practice 04/11/20 11/16/20 documented as of this encounter
--- OUTSIDE RECORDS SUMMARY | 2025-06-18 05:58 | XMS_ITS | Encounter Summary ---
Author Organization [facility] Address [address] [place] [address] Care Team Providers Care Station Helper Name Role Phone Raymond Morrissey DO Primary Care Provider [phone] Encounter Details Date Type Department Care Team (Latest Contact Info) Description 10/02/[address] 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
--- OUTSIDE RECORDS SUMMARY | 2025-06-18 05:58 | XMS_ITS | Encounter Summary ---
Author Organization [facility] Address [address] [place] [address] Care Team Providers Care Marketing Services Vice President Name Role Phone Raymond Morrissey DO Primary Care Provider [phone] Encounter Details Date Type Department Care Team (Latest Contact Info) Description 05/14/2006 Outpatient Historical [facility] Orthopedics- [address] [place] [address] Kartik Gonzalez MD NO ADDRESS ON FILE Adhesive Capsulit Shlder (Primary Dx) Social History Tobacco Use Types Packs/Day Years Used Date Smoking Tobacco: Never Assessed Comments Unknown Sex and Gender Information Value Date Recorded Sex Assigned at Not on file Legal Sex Female 6:19 AM CARE COORDINATOR Gender Identity Not on file Sexual Orientation Not on file documented as of this encounter Plan of Treatment Not on file documented as of this encounter Visit Diagnoses Diagnosis Adhesive capsulit shlder- Primary Adhesive capsulitis of shoulder documented in this encounter Care Teams Marketing Services Vice President Relationship Specialty Start Date End Date Raymond Morrissey DO PCP - General Family Practice 04/11/20 11/16/20 documented as of this encounter
--- OUTSIDE RECORDS SUMMARY | 2025-06-18 05:58 | XMS_ITS | Encounter Summary ---
Author Organization [facility] Address [address] [place] [address] Care Team Providers Care Information Systems Coordinator Name Role Phone Raymond Morrissey DO Primary Care Provider [phone] Encounter Details Date Type Department Care Team (Latest Contact Info) Description 03/26/2006 Outpatient Historical [facility] Orthopedics- 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
--- OUTSIDE RECORDS SUMMARY | 2025-06-18 05:58 | XMS_ITS | Encounter Summary ---
Author Organization [facility] Address [address] 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
--- OUTSIDE RECORDS SUMMARY | 2025-06-18 05:58 | XMS_ITS | Encounter Summary ---
Author Organization [facility] Address [address] [place] [address] Care Team Providers Care Senior Sharepoint Developer Name Role Phone Raymond Morrissey DO Primary Care Provider [phone] Encounter Details Date Type Department Care Team (Late st Contact Info) Description 05/28/2001 Outpatient Historical [facility] Laboratory and Imaging Services- [facility] [address] [place] [address] Social History Tobacco Use Types Packs/Day Years Used Date Smoking Tobacco: Never Assessed Comments Unknown Sex and Gender Information Value Date Recorded Sex Assigned at Not on file 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
--- OUTSIDE RECORDS SUMMARY | 2025-06-18 05:58 | XMS_ITS | Encounter Summary ---
Author Organization [facility] Address [address] [place] [address] Care Team Providers Care License Distributor Name Role Phone Raymond Morrissey DO Primary Care Provider [phone] Encounter Details Date Type Department Care Team (Latest Contact Info) Description 04/17/2006 Outpatient Historical [facility] Orthopedics- 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
--- OUTSIDE RECORDS SUMMARY | 2025-06-18 05:58 | XMS_ITS | Encounter Summary ---
Author Organization [facility] Address [address] [place] [address] Care Team Providers Care Diesel Retrofit Installer Name Role Phone Raymond Morrissey DO Primary Care Provider Encounter Details Date Type Department Care Team (Latest Contact Info) Description 05/28/2001 Outpatient [facility] Internal Medicine-[place] [address] [place] [address] Filiberto Ramirez MD [address] [place] [address] Type II or unspecified type diabetes mellitus without mention of complication, not stated as uncontrolled (Primary Dx); Unspecified menopausal and postmenopausal disorder; Dermatophytosis of nail; Unspecified essential hypertension Social History Tobacco Use Types Packs/Day Years Used Date Smoking Tobacco: Never Assessed Comments Unknown Sex and Gender Information Value Date Recorded Sex Assigned at Not on file Legal Sex Female 6:19 AM PATIENT FINANCIAL 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 Gender Identity Not on file Sexual Orientation Not on file documented as of this encounter Plan of Treatment Not on file documented as of this encounter Visit Diagnoses Diagnosis Type II or unspecified type diabetes mellitus without mention of complication, not stated as uncontrolled- Primary Unspecified menopausal and postmenopausal disorder Dermatophytosis of nail Unspecified essential hypertension documented in this encounter Care Teams Diesel Retrofit Installer Relationship Specialty Start Date End Date Raymond Morrissey DO PCP - General Family Practice 7/27/20 3/3/21 documented as of this encounter
--- OUTSIDE RECORDS SUMMARY | 2025-06-18 05:58 | XMS_ITS | Encounter Summary ---
Author Organization [facility] Address [address] [place] [address] Care Team Providers Care Circulation Assistant Name Role Phone Raymond Morrissey Kaylan SARMIENTO Primary Care Provider [phone] Reason for Visit * Reason Onset Date Comments Needs Orders Written 07/23/2017 Encounter Details Date Type Department Care Team (Late st Contact Info) Description 07/23/2017 Telephone [facility] [facility] [place] [address] 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 Gender Identity Not on file Sexual Orientation Not on file Occupation Industry Job Start Date Job End Date Not on file Not on file Not on file Not on file documented as of this encounter Plan of Treatment Not on file documented as of this encounter Procedures Procedure Name Priority Date/Time Associated Diagnosis Comments EDUCATION DIABETES, TYPE 2 Routine 07/23/2017 11:50 AM HARNESS PLACER documented in this encounter Results * EDUCATION DIABETES, TYPE 2 - PEREZ (07/23/2017 11:50 AM HARNESS PLACER) Education Name DIABETES, TYPE 2 PEREZ EDUCATION INTERFACE Education URL [email or web address] PEREZ EDUCATION INTERFACE EDUCATION ACCESS CODE [id number] PEREZ EDUCATION INTERFACE EDUCATION ISSUE DATE Jul 23, 2017 PEREZ EDUCATION INTERFACE EDUCATION START DATE PEREZ EDUCATION INTERFACE EDUCATION COMPLETED DATE This program was not started and flagged as on: Aug 23, 2017 PEREZ EDUCATION INTERFACE EDUCATION EXPIRATION DATE Aug 22, 2017 PEREZ EDUCATION INTERFACE EDUCATION MESSAGE EVENT PEREZ EDUCATION INTERFACE 07/23/2017 11:5 0 AM HARNESS PLACER us Audrey Edwards MD EXTERNAL EDUCATION ORDERABLES Fi nal Result PEREZ EDUCATION INTERFACE documented in this encounter Visit Diagnoses Not on filedocumented in this encounter Care Teams Circulation Assistant Relationship Specialty Start Date End Date Raymond Morrissey DO PCP - General Family Practice 04/11/20 11/16/20 documented as of this encounter
--- OUTSIDE RECORDS SUMMARY | 2025-06-18 05:58 | XMS_ITS | Encounter Summary ---
Author Organization [facility] Address [address] [place] [address] Care Team Providers Care Newspaper Photojournalist Name Role Phone Yuni Raymond Kaylan SARMIENTO Primary Care Provider [phone] Reason for Referral * Radiology Services (Routine) [...] Expiration Date Visits Re quested Visits Authorized [id number] Closed 12/03/2018 01/03/2020 1 1 Encounter Details Date Type Department Care Team (Latest Contact Info) Description 12/03/2018 Ancillary Orders [facility] Pre-Registration [place] CALL TO MAKE APPOINTMENT ONLY [address] [place] [address] Brielle Holcomb MD [address] [place] [phone] Visit for screening mammogram Social History Tobacco Use Types Packs/Day Years Used Date Smoking Tobacco: Never Smokeless Tobacco: Never Alcohol Use Standard Drinks/Week Comments No 0 (1 standard drink = 0.6 oz pur e alcohol) Comments No Sex and Gender Information Value Date Recorded Sex Assigned at Not on file Legal Sex Female 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
--- OUTSIDE RECORDS SUMMARY | 2025-06-18 05:58 | XMS_ITS | Encounter Summary ---
Author Organization [facility] Address [address] [place] [address] Care Team Providers Care Section Hand Name Role Phone Raymond Morrissey Kaylan SARMIENTO Primary Care Provider [phone] Encounter Details Date Type Department Care Team (Late st Contact Info) Description 12/01/2014 Ancillary Orders [facility] [address] [place] [phone] Loreto Abdi MD [address] [place] [address] Other screening mammogram (Primary Dx) Social History Tobacco Use Types Packs/Day Years Used Date Smoking Tobacco: Never Smokeless Tobacco: Never Alcohol Use Standard Drinks/Week Comments No 0 (1 standard drink = 0.6 oz pur e alcohol) Comments No Sex and Gender Information Value Date Recorded Sex Assigned at Not on file Legal Sex Female 6:19 AM FORM SETTER STEEL FORMS Gender Identity Not on file Sexual Orientation [...] Primary documented in this encounter Care Teams Section Hand Relationship Specialty Start Date End Date Raymond Morrissey DO PCP - General Family Practice 04/11/20 11/16/20 documented as of this encounter
--- OUTSIDE RECORDS SUMMARY | 2025-06-18 05:58 | XMS_ITS | Encounter Summary ---
Author Organization [facility] Address [address] [place] [address] Care Team Providers Care General Manager Road Production Name Role Phone Raymond Morrissey DO Primary Care Provider Encounter Details Date Type Department Care Team (Latest Contact Info) Description 07/15/2001 Outpatient Historical [facility] Internal Medicine-[place] [address] [place] [address] Filiberto Ramirez MD [address] [place] [address] LOCAL SKIN INFECTION NOS (Primary Dx); COUGH; DIABETES UNCOMPL ADULT-TYPE II (CMS/HCC) Social History Tobacco Use Types Packs/Day Years Used Date Smoking Tobacco: Never Assessed Comments Unknown Sex and Gender Information Value Date Recorded Sex Assigned at Not on file Legal Sex Female 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
--- OUTSIDE RECORDS SUMMARY | 2025-06-18 05:58 | XMS_ITS | Encounter Summary ---
Author Organization [facility] Address [address] [place] [address] Care Team Providers Care Agricultural Sciences Professor Name Role Phone Raymond Morrissey DO Primary Care Provider [phone] Encounter Details Date Type Department Care Team (Latest Contact Info) Description 02/19/2001 Outpatient Historical [facility] [address] [place] [address] Filiberto Ramirez MD [address] [place] [address] Type II or unspecified type [...] on file Legal Sex Female 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
[2025-06-18 06:04] VITALS: BP 135/59; PULSE 73; RESP 18; TEMP 36.5; O2SAT 100; BMI 28.1
--- NOTE | 2025-06-18 06:10 | XR_ITS ---
WS: [id number] XR KUB [id number] REASON FOR EXAM: constipation FINDINGS: No free air or retroperitoneal air. Unremarkable bowel gas pattern. No significant large or small bowel distention. No significant volume of retained stool. Large rim calcified mass in the epigastrium 9.5 cm in maximal dimension. This mass has been demonstrated on previous CT scan of the 05/21/2020 and 12/11/2024. 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 Stable and likely unrelated to current clinical situation. No other significant abdominal finding. No focal bone lesion in the lumbar spine or bony pelvis. XR/XR KUB [id number] IMPRESSION: No acute abdominal findings. 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
[2025-06-18 06:19] VITALS: BP 135/59; PULSE 87; RESP 18; O2SAT 99
--- NOTE | 2025-06-18 06:24 | ED_ITS ---
HPI - Abdominal Pain 2 General: Chief Complaint: Abdominal Pain Stated Complaint: Constipation Time Seen by Provider: 06/18/25 06:08 Source: patient Mode of arrival: ambulatory Limitations: no limitations History of Present Illness: 70-year-old female states she has had co nstipation over the last week. She has had history of same states she is having cramping along with pain in her rectum states she has tried laxatives with no results. She denies any vomiting denies any fevers denies any worsening improving factors. Associated Symptoms: Reports constipation; Denies vomiting Related Data Home Medications ?Medication ?Instructions ?Recorded ?Confirmed magnesium glycinate 118 mg PO DAILY 02/16/25 aspirin 81 mg tablet 81 mg PO DAILY 05/24/2505/17 desvenlafaxine succinate 50 mg 50 mg PO DAILY 06/04/25 06/04/25 tablet,extended release 24 hr Previous Rx's ?Medication ?Instructions ?Recorded blood-glucose transmitter (Dexcom #1 ea 10/19/24 G6 Transmitter device) blood-glucose,registered appraiser,cont #1 ea 10/19/24 (Dexcom G6 Assistant Kitchen Manager) blood sugar diagnostic (Blood #50 ea 12/09/24 Glucose Test strips) blood-glucose meter #1 ea 12/09/24 lancets 32 gauge (E-Z Ject Lancets) #100 ea 12/09/24 empagliflozin 25 mg tablet 25 mg PO DAILY 90 days #90 tabs 02/23/25 (Jardiance) hydrochlorothiazide 12.5 mg tablet 12.5 mg PO QAM 90 d ays #90 tabs 02/23/25 levothyroxine 88 mcg tablet 88 mcg PO DAILY 90 days #9 0 tabs 02/23/25 lisinopril 40 mg tablet 40 mg PO DAILY 90 days #90 t abs 02/23/25 metoprolol succinate 50 mg 50 mg PO DAILY 90 days #90 tabs 02/23/25 tablet,extended release 24 hr rivaroxaban 20 mg tablet (Xarelto) 20 mg PO DAILY 90 d ays #90 tabs 02/23/25 blood-glucose sensor (Dexcom G7 #3 ea 02/25/25 Sensor device) baclofen 5 mg tablet 5 mg PO BID PRN muscle spasm #60 03/16/25 tabs amlodipine 10 mg tablet 10 mg PO DAILY PRN bp 90 day s #90 05/13/25 tabs sulfamethoxazole 800 1 tab PO Q12H 7 days #14 tab s 05/26/25 mg-trimethoprim 160 mg tablet (Bactrim DS) enoxaparin 80 mg/0.8 mL 80 mg (0.8 mL) SUBCUT DIR ECTED 05/27/25 subcutaneous syringe (Lovenox) #4.8 mL ondansetron 4 mg disintegrating 4 mg PO Q6H PRN nausea and 06/04/25 tablet vomiting #14 tabs Allergies Allergy/AdvReac Type Severity Reaction Status Date / Time No Known Allergies Allergy Verified 05/26/25 10:15 Review of Systems 2 GI: Reports: abdominal pain and constipation; Denies: vomiting PFSH ED 2 PFSH: Medical History Pancreatic mass A-fib Hyperlipidemia Thrombocytopenia Hyperglycemia Vomiting CKD (chronic kidney disease) Diabetic neuropathy Esophageal thickening Elevated troponin Anemia Acute kidney injury Menopausal symptoms Relates she takes antidepressant for this DJD (degenerative joint disease) Hypothyroidism Pituitary tumor s/p post surgery at [facility] 2019? Hypertension DM type 2 (diabetes mellitus, type 2) Surgical History History of hysterectomy History of H/O pituitary neoplasm Status post resection Family History Other CAD (coronary artery disease) Social History Smoking and tobacco/nicotine status: never used tobacco/nicotine Second hand smoke exposure: No Alcohol intake: never Substance/Drug Use: never Female Reproductive History: Spontaneous abortions: No Physical Exam 2 Const: COMMON NORMALS: no acute distress, patient oriented x3 and healthy appearing HENMT: COMMON NORMALS: normocephalic and atraumatic HEAD & SCALP: n ormocephalic and atraumatic Eye: COMMON NORMALS: conjunctivae normal CONJUNCTIVA: Yes conjunctivae normal Neck/C-Spine: COMMON NORMALS: full ROM and supple Chest: COMMONS NORMALS: normal inspection of the chest Resp: COMMON NORMALS: normal respiratory effort Cardio: COMMON NORMALS: regular rate, regular rhythm and No murmurs present (Cardio) RATE: regular rate RHYTHM: regular rhythm GI: COMMON NORMALS: Normal to inspection, nondistended, normoactive bowel sounds present, Soft to palpation, non-tender and no masses PALPATION: Yes Soft to palpation Extremity: COMMON NORMALS: normal to inspection and full ROM Neuro: COMMON NORMALS: patient oriented x3, moves all extremities and no focal motor deficits Psych: COMMON NORMALS: mental status grossly normal, Normal thought process present and cooperative THOUGHT PROCESS: Normal thought process present Skin: COMMON NORMALS: no rashes or lesions noted and no wounds GENERAL SKIN EXAM: no rashes or lesions noted Course 2 Vital Signs: Vital signs: Vital Signs Temperature 97.7 F 06/18/25 06:04 Pulse Rate 87 06/18/25 06:19 Respiratory Rate 18 06/18/25 06:19 Blood Pressure 135/59 06/18/25 06:19 Pulse Oximetry 99 06/18/25 06:19 Oxygen Delivery Me thod Room Air 06/18/25 06:19 MDM - Abdominal Pain Medical Decision Making Patient presents with constipation over a week. Differential includes diverticulitis small bowel obstruction patient exam here showed no tenderness on abdominal exam no signs of acute surgical abdomen she had no vomiting no signs of small bowel obstruction x-ray shows no signs of bowel obstruction does show constipation. Patient did receive a suppository along with lactulose had a bowel movement here and feels improved. Patient is stable for discharge she is continue MiraLAX push plenty of fluids did go over her x-ray labs here are normal as well no signs of infection white count is normal creatinine is at her baseline. She is to follow-up with PCP and return if worsening she understands agrees to plan Medical Records I reviewed the patient's medical records. Lab Data I reviewed the patient's lab results. 06/18/25 06:28 06/18/25 06:28 Labs/Radiology: Laboratory Results WBC 9.66 10^3/uL (3.29-11.43) 06/18/25 06:28 RBC 4.44 10^6/uL (3.85-5.65) 06/18/25 06:28 Hgb 11.80 g/dL (11.27-16.99) 06/18/25 06:28 Hct 37.6 % (36-47) 06/18/25 06:28 MCV 84.7 fl (85-98) L 06/18/25 06:28 MCH 26.6 pg (27-33) L 06/18/25 06: MCHC 31.4 g/dL (30-55) 06/18/25 06: RDW 14.1 % (12.1-15.1) 06/18/25 06: Plt Count 279 10^3/cmm (157-399) 06/18/25 06: MPV 9.2 fL (7.4-10.4) 06/18/25 06: Neut % (Auto) 74.4 % 06/18/25 06: Lymph % (Auto) 16.1 % 06/18/25 06: [place] % (Auto) 6.6 % 06/18/25 06: Eos % (Auto) 1.9 % 06/18/25 06: Baso % (Auto) 0.6 % 06/18/25: Neut # (Auto) 7.18 10^3/uL (1.8-7.7) 06/18/25 06: Lymph # (Auto) 1.6 10^3/uL (0.8-4.8) 06/18/25 06: [place] # (Auto) 0.6 10^3/uL (0.2-0.9) 06/18/25 06: Eos # (Auto) 0.2 10^3/uL (0.0-0.8) 06/18/25 06: Baso # (Auto) 0.1 10^3/uL (0.0-0.1) 06/18/25 06: Nucleated RBC % (auto) 0 % 06/18/25 06: Nucleated RBCs # 0.0 /100WBC 06/18/25 06: Sodium 134 mmol/L (136-145) L 06/18/25 06: Potassium 4.8 mmol/L (3.5-5.1) 06/18/25 06: Chloride 98 mmol/L (98-107) 06/18/25 06: Carbon Dioxide 20 mmol/L (22-29) L 06/18/25 06: Anion Gap 20.8 (5-19) H 06/18/25 06: BUN 51 mg/dL (8-23) H 06/18/25 06:28 Creatinine 1.8 mg/dL (0.5-0.9) H 06/18/25 06:28 GFR Calculation Not Reportable 06/18/25 06:28 Glucose 250 mg/dL (65-115) H 06/18/25 06:28 Calculated Osmolality 300 mOsm/kg (285-295) H 06/18/25 06:28 Calcium 9.3 mg/dL (8.5-10.5) 06/18/25 06:28 Total Bilirubin 0.3 mg/dL (0.15-1.2) 06/18/25 06:28 AST 14 U/L (0-32) 06/18/25 06:28 ALT 11 U/L (0-33) 06/18/25 06:28 Alkaline Phosphatase 142 U/L (35-105) H 06/18/25 06:28 Total Protein 7.7 g/dL (6.6-8.7) 06/18/25 06:28 Albumin 3.7 g/dL (3.5-5.2) 06/18/25 06:28 Globulin 4.0 g/dL (1.3-4.6) 06/18/25 06:28 Lipase 27 U/L (13-60) 06/18/25 06:28 XR interpretation done by ED provider, pending radiology final review ED provider radiology interpretation(s): xr kub constipation Discharge Plan Discharge Patient Disposition: Home Clinical Impression: Constipation Condition: Stable Prescriptions: No Action (DME) Dexcom G6 Assistant Kitchen Manager Misc See Rx Instructions .ROUTE .MEDSUPPLY Qty: 1 0RF Rx Instructions: As directed (DME) Dexcom G6 Transmitter Device See Rx Instructions .ROUTE .MEDSUPPLY Qty: 1 0RF Rx Instructions: As directed (DME) Blood Glucose Test Strip See Rx Instructions .Route Qty: 50 0RF Rx Instructions: As directed (DME) blood-glucose meter Kit See Rx Instructions .Route Qty: 1 0RF Rx Instructions: As directed (DME) E-Z Ject Lancets 32 gauge misc See Rx Instructions .Route Qty: 100 0RF Rx Instructions: As directed baclofen 5 mg tablet 5 mg PO BID PRN (Reason: muscle spasm) Qty: 60 3RF Xarelto 20 mg tablet 20 mg PO DAILY 90 Days Qty: 90 2RF Rx Instructions: must administer with evening meal 340B metoprolol succinate 50 mg tablet extended release 24 hr 50 mg PO DAILY 90 Days Qty: 90 2RF Jardiance 25 mg tablet 25 mg PO DAILY 90 Days Qty: 90 2RF Rx Instructions: 340B levothyroxine 88 mcg tablet 88 mcg PO DAILY 90 Days Qty: 90 2RF lisinopril 40 mg tablet 40 mg PO DAILY 90 Days Qty: 90 2RF Rx Instructions: 340B hydrochlorothiazide 12.5 mg tablet 12.5 mg PO QAM 90 Days Qty: 90 2RF aspirin 81 mg tablet 81 mg PO DAILY sulfamethoxazole-trimethoprim [Bactrim DS] 800-160 mg tablet 1 tab PO Q12H 7 Days Qty: 14 0RF (DME) Picateers G7 Sensor Device See Rx Instructions .ROUTE .COMPLEX Qty: 3 3RF Dose Instruction: USE DIRECTED Rx Instructions: USE DIRECTED amlodipine 10 mg tablet 10 mg PO DAILY PRN (Reason: bp) 90 Days Qty: 90 0RF Rx Instructions: Hold for low bp enoxaparin [Lovenox] 80 mg/0.8 mL syringe 80 mg SUBCUT DIRECTED Qty: 4.8 0RF Rx Instructions: 06/01- last dose of Xarelto and Aspirin 06/02, 06/03, & 06/04 take one injection of Lovenox in the AM & PM Nothing on 06/05 & 06/06 magnesium glycinate 118 mg magnesium Capsule 118 mg PO DAILY desvenlafaxine succinate 50 mg tablet extended release 24 hr 50 mg PO DAILY ondansetron 4 mg tablet,disintegrating 4 mg PO Q6H PRN (Reason: nausea and vomiting) Qty: 14 0RF Discharge Orders: Discharge ED (Routine); Ordered 06/18/25 Ordered By: Josefina Fernandez Referrals: Marcia Flannery MD [Primary Care Provider, Family Practice] - 4-7 days Discharge Diet: Advance as tolerated Discharge Activity: Resume usual activity Patient Instructions: Constipation (ED) Print Language: Kuwaiti Coding Level of Care Code ED Animal Damage Control Agent for Chintan Persaud
[2025-06-18] MEDS: lactulose oral liq 20 gm/30 mL UDC 30 GM PO (06:35)
[2025-06-18 06:40] LABS: Hematocrit 37.6 % (36-47); Hemoglobin 11.80 g/dL (11.27-16.99); Mean Corpuscular HGB Conc 31.4 g/dL (30-55); Mean Corpuscular Hemoglobin 26.6 pg (27-33); Mean Corpuscular Volume 84.7 fl (85-98); Nucleated Red Blood Cells % 0 %; Platelet Count 279 10^3/cmm (157-399); Red Blood Count 4.44 10^6/uL (3.85-5.65); White Blood Count 9.66 10^3/uL (3.29-11.43)
[2025-06-18 06:58] LABS: Alanine Aminotransferase 11 U/L (0-33); Albumin Level 3.7 g/dL (3.5-5.2); Alkaline Phosphatase 142 U/L (35-105); Anion Gap 20.8 (5-19); Aspartate Amino Transferase 14 U/L (0-32); Blood Urea Nitrogen 51 mg/dL (8-23); Calcium 9.3 mg/dL (8.5-10.5); Carbon Dioxide 20 mmol/L (22-29); Chloride 98 mmol/L (98-107); Creatinine Clr Calc Pharmacy 31.0491; Globulin 4.0 g/dL (1.3-4.6); Glucose 250 mg/dL (65-115); Lipase 27 U/L (13-60); Osmolality Calculated 300 mOsm/kg (285-295); Potassium 4.8 mmol/L (3.5-5.1); Sodium 134 mmol/L (136-145); Total Protein 7.7 g/dL (6.6-8.7)
--- NOTE | 2025-06-18 07:26 | PC.NURSE ---
pt was able to have bowel movement, pt denies needing to go anymore.
[2025-06-18 07:31] VITALS: BP 98/63; PULSE 80; O2SAT 98
== END 2025-06-18 07:38 | disposition home or self-care (01) ==
PROVIDERS: Emergency Provider Emergency Medicine; PCP Family Medicine
DX: K59.00 Constipation, unspecified (principal); Z79.82 Long term (current) use of aspirin; E78.5 Hyperlipidemia, unspecified; E11.22 Type 2 diabetes mellitus with diabetic chronic kidney disease; I12.9 Hypertensive chronic kidney disease with stage 1 through stage 4 chronic kidney disease, or unspecified chronic kidney disease; N18.9 Chronic kidney disease, unspecified
CPT/HCPCS: 36415; 74018; 80053; 83690; 85025; 99284; J9999

== ENCOUNTER 2025-07-03 22:33 | Observation (INO) | payer MEDICARE, SELFPAY ==
--- OUTSIDE RECORDS SUMMARY | 2025-07-03 22:37 | XMS_ITS | Clinical Summary ---
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 90 Tablet 0 Active insulin detemir U-100 (Levemir FlexTouch U-100 Insuln) 100 unit/mL pen syringeIndications:Typ e 2 diabetes mellitus with hyperglycemia, without long-term current use of insulin Inject 42 units subcutaneously BID. E11.65 30 mL 6 Active empagliflozin (Jardiance) 25 mg tablet TAKE 1 TABLET BY MOUTH ONCE DAILY IN THE MORNING 90 Tablet 0 Active OneTouch Ultra Test Strip USE as [...] DAYS; must administer with evening meal Active pantoprazole (PROTONIX) 40 mg Tablet, Delayed Release (E.C.) Take 1 Tablet (40 mg) by mouth daily. Active polyethylene glycol 3350 (MIRALAX) 17 gram/dose Powder Take 1 Scoop (17 Grams) by mouth 1 time daily as needed for Constipation. Dissolve in 8 ounces of fluid and drink entire liquid Active sennosides-docusate sodium (SENNA-S) 8.6-50 mg tablet Take 1 Tablet by mouth daily. Active Active Problems Problem Noted Date Diagnosed Date Leukocytosis 06/21/2025 Generalized weakness 06/19/2025 OLIMPIA (acute kidney injury) 06/19/2025 A-fib 06/19/2025 Chronic anticoagulation 06/19/2025 Urinary tract infection without hematuria 2024 Vitamin D deficiency 10/14/2019 Hypercholesteremia 10/14/2019 Hyperparathyroidism [...] adenoma 09/22/2014 Overview (01/12/2021): resection done at [facility] in 02/2014. Hypothyroidism, unspecified 08/19/2014 Overview (01/12/2021): ACTION 04/08/20 TSH 2.43 88 mcg. Increase to 100 mcg. Recheck in 3 month. Essential hypertension 08/19/2014 Sensory hearing loss, unilateral 08/05/2014 Overview (01/12/2021): profound right ear Resolved Problems Problem Noted Date Diagnosed Date Resolved Date Combined forms of age-relate d cataract of left eye 02/19/2017 04/16/2017 Encounters Date Type Department Care Team Description 07/02/2025 Telephone [facility] [address] [place] [address] Taylor Fletcher DO Provider Call 06/22/2025 External Device Data STL ABSTRACTION Provider, Abstract 06/22/2025 External Device Data [facility] ABSTRACTION Provider, Abstract 06/22/2025 External Device Data [facility] ABSTRACTION Provider, Abstract 06/18/2025 6:25 PM CDT - 06/24/2025 4:52 PM CDT Hospital Encounter [facility] Medical Telemetry [address] [place] [id number] Ciltali Hernandez DO Abbas, Muhammad Khalid, MD Chilukuri, Ramya Sree, MD Tyler, Cori Stahl MD Generalized weakness Discharge Disposition: Discharged/transferr ed to a fdc facility (SNF) with Medicare certificatio 06/18/2025 - 06/18/2025 11:59 PM CDT Hospital Encounter [facility] Emergency Medical Services [facility] [address] [place] [address] Ambulance, [facility] Discharge Disposition: Short term general hospital 06/18/2025 Travel 05/05/2025 External Device Data STL ABSTRACTION Provider, [...] drink = 0.6 oz pur e alcohol) Food Insecurity Answer Date Recorded Do you find you are eating l ess than you should because you can t pay for food? No 06/18/2025 Transportation Needs Answer Date Record ed Have you gone without health care because you didn t have a way to get there? Or worry about transportation for future doctor visits, supervisor opening and picking medication, etc.? No 2024 Housing Stability Answer Date Recorded Do you worry you won t have a steady place to sleep or struggle to pay rent or mortgage? No 06/18/2025 Utility Needs Answer Date Recorded Do you have difficulty payin g for utility costs (electric, water or gas bills)? No 06/18/2025 Medication Needs Answer Date Recorded Have you skipped taking medi cation due to cost or worry you can t afford new medications? No 06/18/2025 Feeling Safe Answer Date Recorded Are you in a relationship wi th someone who hurts you emotionally and/or physically? No 06/18/2025 Food Insecurity Answer Date Recorded Patient needs follow up regardin 06/19/2025 Transportation Needs Answer Date Record ed Patient needs follow up regardin 06/19/2025 Utility Needs Answer Date Recorded Patient needs follow up regardin 06/19/2025 Comments Unknown Sex and Gender Information Value Date Recorded Sex Assigned at Not on file Legal Sex Female 2:55 AM DIRECTOR SHIP Gender Identity Not on file Sexual Orientation Not on file Last Filed Vital Signs Vital Sign Reading Time Taken Comments Blood Pressure 132/74 06/24/2025 7:24 AM CDT Pulse 95 06/24/2025 7:24 AM CDT Temperature 36.1 C (96.9 F) 06/24/2025 7:24 AM CDT Respiratory Rate 16 06/24/2025 7:24 AM CDT Oxygen Saturation 95% 06/24/2025 2:01 PM CDT Inhaled Oxygen Concentration - - Weight 79.4 kg (175 lb 0.7 oz) 06/18/2025 6:15 P M CDT Height 170.2 cm (5' 7 ) 06/18/2025 6:15 PM CDT Body Mass Index 27.42 06/18/2025 6:15 PM CDT Plan of Treatment Upcoming Encounters Date Type Department Care Team (Late st Contact Info) Description 02/02/2026 2:30 PM CDT Office Visit [facility] Neurosurgery [address] [place] [phone] Boo Rubin MD [address] [place] [address] Health Maintenance Due Date Last Done Comments DTAP/TDAP/TD VACCINES (1 - Tdap) 02/24/1972 Flex Sig/CT Colonography Q 5 years 1998 RSV VACCINE (60+ or ) (1 - Risk 50-74 years 1-dose series) 2003 ZOSTER VACCINE (1 of 2) 2003 FIT/FOBT [...] 10/21/2022 10/21/2019 OSTEOPOROSIS SCREENING 08/04/2023 08/04/2018, 2017 Medicare Advantage (PR) Preventative Visit/Annual Wellness Visit 09/16/2024 04/08/2020, 11/24/2014 INFLUENZA VACCINE (#1) 2025 9, 08/19/2014, 08/19/2014 COVID-19 Vaccine (2024-2 6 season) 2025 09/14/2021, 12/28/2020, 11/30/2020 COLORECTAL SCREENING 11/17/2026 11/18/2019, 11/18/19 20 Colorectal Cancer Screening 11/17/2026 Medical Devices Implanted Type Area Infection Prevention Specialist Device Identifier Shelf Expiration Date Model / Serial / Lot Lens Io Tecnis 1pc 21.5 [id number] - [id number] Implanted:Qty: 1 on 04/01/2017 by Jim Akers DO Eye Right: Eye [employer] 01/18/2021 [id number] / [id number] / Lens Io Tecnis 1pc 21.5 [id number] - [id number] Implanted:Qty: 1 on 04/15/2017 by Jim Akers DO Eye Left: Eye [employer] 01/31/2021 [id number] / [id number] / Procedures Procedure Name Priority Date/Time Associated Diagnosis Comments TELEMETRY REPORT 06/25/2025 2:05 PM CDT POC GLUCOSE Routine 06/24/2025 12:04 PM CDT POC GLUCOSE Routine 06/24/2025 7:15 AM CDT BASIC METABOLIC PANEL Routine 06/24/2025 4:13 AM CDT POC GLUCOSE Routine 06/23/2025 8:23 PM CDT POC GLUCOSE Routine 06/23/2025 6:00 PM CDT POC GLUCOSE Routine 06/23/2025 11:36 AM CDT POC GLUCOSE Routine 06/23/2025 7:50 AM CDT BASIC METABOLIC PANEL Routine 06/23/2025 5:49 AM CDT VANCOMYCIN LEVEL RANDOM Routine 06/23/2025 5:49 AM CDT POC GLUCOSE Routine 06/22/2025 9:14 PM CDT POC GLUCOSE Routine 06/22/2025 4:37 PM CDT POC GLUCOSE Routine 06/22/2025 11:50 AM CDT POC GLUCOSE Routine 06/22/2025 7:55 AM CDT BASIC METABOLIC PANEL Routine 06/22/2025 1:30 AM CDT VANCOMYCIN LEVEL RANDOM Routine 06/22/2025 1:30 AM CDT POC GLUCOSE Routine 06/21/2025 5:14 PM CDT POC GLUCOSE Routine 06/21/2025 12:38 PM CDT POC GLUCOSE Routine 06/21/2025 7:35 AM CDT VANCOMYCIN LEVEL RANDOM Routine 06/21/2025 1:55 AM CDT BASIC METABOLIC PANEL Routine 06/21/2025 1:55 AM CDT CBC WITH DIFFERENTIAL Routine 06/21/2025 1:55 AM CDT POC GLUCOSE Routine 06/20/2025 9:46 PM CDT POC GLUCOSE Routine 06/20/2025 3:21 PM CDT CRYSTAL IDENTIFICATION Stat 06/20/2025 12:39 PM CDT CELL COUNT WITH DIFFERENTIAL, BODY FLUID Stat 06/20/2025 12:39 PM CDT JOINT INFECTION PATHOGEN PCR PANEL Routine 06/20/2025 12:39 PM CDT ANAEROBIC/AEROBIC CULTURE W GRAM STAIN Stat 06/20/2025 12:39 PM CDT POC GLUCOSE Routine 06/20/2025 11:51 AM CDT POC GLUCOSE Routine 06/20/2025 8:07 AM CDT C-REACTIVE PROTEIN Routine 06/20/2025 1: 39 AM CDT BASIC METABOLIC PANEL Routine 06/20/2025 1:39 AM CDT CBC WITH DIFFERENTIAL Routine 06/20/2025 1:39 AM CDT POC GLUCOSE Routine 06/19/2025 7:33 PM CDT POC GLUCOSE Routine 06/19/2025 4:28 PM CDT POC GLUCOSE Routine 06/19/2025 11:28 AM CDT XR KNEE 1 OR 2 VW RIGHT Pending Discharge 06/19/2025 9:45 AM CDT BASIC METABOLIC PANEL Routine 06/19/2025 7:37 AM CDT CBC WITH DIFFERENTIAL Routine 06/19/2025 7:37 AM CDT POC GLUCOSE Routine 06/19/2025 7:[address] HEAD WO CONTRAST Stat 06/18/2025 9 :46 PM CDT BLOOD CULTURE Stat 06/18/2025 9:05 PM CDT BLOOD CULTURE Stat 06/18/2025 9:05 PM CDT BLOOD CULTURE Stat 06/18/2025 9:05 PM CDT BLOOD CULTURE Stat 06/18/2025 9:05 PM CDT EXTRA TUBE (URINE LEPE) Stat 06/18/2025 8:18 PM CDT BASIC METABOLIC PANEL Stat 06/18/2025 8:18 PM CDT URINALYSIS W/REFLEX MICROSCOPIC Stat 06/18/2025 8:18 PM CDT URINE CULTURE Stat 06/18/2025 8:18 PM CDT POC GLUCOSE Stat 06/18/2025 8:03 PM CDT XR CHEST PA OR AP 1 VW Stat 06/18/2025 7:23 PM CDT LACTIC ACID Stat 06/18/2025 7:15 PM CDT T4 FREE Stat 06/18/2025 6:54 PM CDT TSH Stat 06/18/2025 6:54 PM CDT MAGNESIUM LEVEL Stat 06/18/2025 6:54 PM CDT COMPREHENSIVE METABOLIC PANEL Stat 06/18/2025 6:54 PM CDT CBC WITH DIFFERENTIAL Stat 06/18/2025 6:54 PM CDT EKG 12-LEAD Stat 06/18/2025 6:24 PM CDT CRITICAL CARE Routine 06/18/2025 6:07 PM CDT MICROALBUMIN/CREATINI NE RATIO, RANDOM UR Routine 04/08/2020 10:05 AM CDT LIPID PANEL Routine 04/08/2020 10:05 AM CDT HEMOGLOBIN A1C Routine 04/08/2020 10:05 AM CDT COLONOSCOPY REPORT 11/18/2019 10 :59 AM DIRECTOR SHIP COLON CANCER SCREEN, STOOL DNA Routine 10/21/2019 11:00 PM DIRECTOR SHIP MAMMO 3D RENETTA SCREEN BILAT W OR WO CAD Routine 01/05/2019 1:18 PM CDT Visit for screening mammogram [facility] DIABETES EYE EXAM 11/05/2018 12:00 AM DIRECTOR SHIP XR DEXA BONE DENSITY AXIAL 1 OR MORE SITES Routine 08/04/2018 10:12 AM DIRECTOR SHIP HPTH (hyperparathyroi dism) OCCULT BLOOD IMMUNOASSAY, COLORECTAL SCREEN Routine 04/30/2016 5:13 PM CDT from Last 3 Months or Most Recently Relevant to Health Maintenance Results * TELEMETRY REPORT (06/25/2025 2:05 PM CDT) us Provider Scanning ECG ORDERABLES Final Result * (ABNORMAL) POC GLUCOSE (06/24/2025 12:04 PM CDT) Only the most recent of22 resultswithin the time period is included. [facility] GLUCOSE POC 257(H) 74 - 99 mg/dL 06/24/2025 12:04 PM CDT [facility] SPECIMEN SOURCE, GLUCOSE POC Capillary 06/24/2025 12:04 PM T [facility] Blood, whole 06/24/2025 12:0 4 PM CDT 06/24/2025 12:22 PM CDT Cori Scott MD POINT OF CARE TESTING Fi nal Result [facility] CLIA # [id number] [address] [place] [address] * (ABNORMAL) BASIC METABOLIC PANEL (06/24/2025 4:13 AM CDT) Only the most recent of7 resultswithin the time period is included. [facility] SODIUM 132(L) 136 - 145 mmol/L 06/24/2025 5:01 AM [facility] POTASSIUM 5.1 3.5 - 5.1 mmol/L 06/24/2025 5:01 AM [facility] CHLORIDE 107 98 - 107 mmol/L 06/24/2025 5:01 AM [facility] CO2 17(L) 22 - 29 mmol/L 06/24/2025 5:01 AM [facility] CALCIUM 7.9(L) 8.8 - 10.2 mg/dL 06/24/2025 5:01 AM [facility] BUN 40(H) 8 - 23 mg/dL 06/24/2025 5:01 AM [facility] CREATININE 1.71(H) 0.51 - 0.95 mg/dL 06/24/2025 5:01 AM [facility] Comment:The GFR result is no t clinically significant on patients <18 or >70 years of age. GLUCOSE 289(H) 74 - 99 mg/dL 06/24/2025 5:01 AM CDT [facility] GFR 31 mL/min/1. 73 sq meter 06/24/2025 5:01 AM CDT [facility] Comment:eGFR calculated with 2020 CKD-EPI equation. Vegetarian diet, extremely high or low muscle mass, and may affect results. Cystatin C with Glomerular Filtration Rate is a suitable alternative for these patients. ANION GAP 8(L) 9 - 20 mmol/L 06/24/2025 5:01 AM CDT [facility] Blood Venipuncture / Unknown 06/24/2025 4:13 AM CDT 06/24/2025 4:26 AM CDT Cori Scott MD CHEMISTRY ORDERABLES Fin al Result Performing Organization Address [facility] Phone Number [facility] CLIA # [id number] [address] [address] * VANCOMYCIN LEVEL RANDOM (06/23/2025 5:49 AM CDT) Only the most recent of3 resultswithin the time period is included. VANCOMYCIN, RANDOM 16.8 5.0 - 50.0 ug/mL 06/23/2025 6:55 AM CDT [facility] Blood Venipuncture / Unknown 06/23/2025 5:49 AM CDT 06/23/2025 6:22 AM CDT Narrative [facility] - 06/23/2025 6:55 AM CDT Vancomycin Therapeutic Ranges: Vancomycin Trough: 10 - 20 mcg/mL Vancomycin Peak: 25 - 50 mcg/mL Cori Scott MD CHEMISTRY ORDERABLES Fin al Result Performing Organization Address [facility] Co de Phone Number [facility] CLIA # [id number] [address] [place] [address] * (ABNORMAL) CBC WITH DIFFERENTIAL (06/21/2025 1:55 AM CDT) Only the most recent of4 resultswithin the time period is included. [facility] WBC 7.5 4.8 - 10.8 K/uL 06/21/2025 2:06 AM [facility] RBC 3.14(L) 4.20 - 5.40 M/uL 06/21/2025 2:06 AM [facility] HEMOGLOBIN 8.3(L) 12.0 - 16.0 g/dL 06/21/2025 2:06 AM [facility] HEMATOCRIT 26.4(L) 36.0 - 46.0 % 06/21/2025 2:06 AM [facility] MCV 84.1 84.0 - 103.0 fL 06/21/2025 2:06 AM [facility] MCH 26.4(L) 27.0 - 34.0 pg 06/21/2025 2:06 AM [facility] MCHC 31.4 30.0 - 35.0 g/dL 06/21/2025 2:06 AM [facility] PLATELETS 156 140 - 440 K/uL 06/21/2025 2:06 AM [facility] MPV 9.1 8.9 - 12.8 fL 06/21/2025 2:06 AM [facility] RDW 14.1 11.0 - 14.5 % 06/21/2025 2:06 AM [facility] RDW-STDEV 43.6 37.0 - 54.0 fL 06/21/2025 2:06 AM [facility] NEUTROPHILS 66 42 - 75 % 06/21/2025 2:06 AM [facility] LYMPHOCYTES 18(L) 24 - 44 % 06/21/2025 2:06 AM [facility] MONOCYTES 12(H) 2 - 10 % 06/21/2025 2:06 AM [facility] EOSINOPHILS 3 0 - 7 % 06/21/2025 2:06 AM CDT [facility] BASOPHILS 0 0 - 1 % 06/21/2025 2:06 AM CDT [facility] IMMATURE GRANULOCYTES 1 0 - 2 % 06/21/2025 2:06 AM CDT [facility] NEUTROPHIL ABSOLUTE 4.94 2.00 - 8.00 K/uL 06/21/2025 2:06 AM CDT [facility] LYMPHOCYTE ABSOLUTE 1.35 1.20 - 4.00 K/uL 06/21/2025 2:06 AM CDT [facility] MONOCYTE ABSOLUTE 0.86(H) 0.10 - 0.60 K/uL 06/21/2025 2:06 AM CDT [facility] EOSINOPHIL ABSOLUTE 0.23 0.00 - 0.70 K/uL 06/21/2025 2:06 AM CDT [facility] BASOPHILS ABSOLUTE 0.03 0.00 - 0.20 K/uL 06/21/2025 2:06 AM CDT [facility] IMMATURE GRANULOCYTES ABSOLUTE 0.05 0.00 - 0.10 K/uL 06/21/2025 2:06 AM CDT [facility] SMEAR REVIEWED: NA - Not Applicable 06/21/2025 2:06 AM [facility] Blood Venipuncture / Unknown 06/21/2025 1:55 AM CDT 06/21/2025 2:03 AM CDT us Randi Marrero MD HEMATOLOGY ORDERABLES Fi nal Result [id number] [address] [place] [address] [place], [place] [address] * JOINT INFECTION PATHOGEN PCR PANEL (06/20/2025 12:39 PM CDT) [facility] Joint Infection Pathogen PCR Panel No nucleic acids detected. No nucleic acids detected. 06/21/2025 3:46 PM CDT [facility] Synovial fluid (Knee, right) Collection / Unknown 06/20/2025 12:39 PM CDT 06/20/2025 12:46 PM CDT Narrative [facility] - 06/21/2025 3:46 PM CDT Joint panel requested by Dr Saunders. The Film Array Joint infection PCR Panel is a multiplexed nucleic acid detection test for the simultaneous qualitative detection and identification of multiple bacterial and yeast nucleic acids from synovial fluid obtained from individuals suspected to have a joint infection. It also detects genetic determinants of resistance to methicillin (mecA/C and MREJ), vancomycin (Mickie and vanB), carbapenems (IMP, KPC, NDM, OXA-48 like and VIM), and ESBL (CTX-M). A negative result does not exclude the possibility of infection. This panel does not distinguish between nucleic acid from live or organisms. Culture is needed for recovery of isolates and antimicrobial susceptibility testing. The PreventlyFire JI Panel is indicated as an aid in the diagnosis of specific agents of joint infection and results should be used in conjunction with other clinical and laboratory findings. Negative results may be due to infection with pathogens that are not detected by this test, pathogens present below the limit of detection of the assay, or infection that may not be detected in a synovial fluid specimen. Positive results do not rule out co-infection with other organisms. The PreventlyFire JI Panel is not intended to monitor treatment for joint infections. The following organisms are identified using the FilmArray JIP Panel: Gram Positive Bacteria: Anaerococcus prevotii/vaginalis Clostridium perfringens Cutibacterium avidum/granulosum Enterococcus faecalis Enterococcus faecium Finegoldia magna Parvimonas micra Peptoniphilus spp. Peptostreptococcus anaerobius Staphylococcus aureus Staphylococcus lugdunensis Streptococcus spp. Streptococcus agalactiae Streptococcus pneumoniae Streptococcus pyogenes Gram Negative Bacteria Bacteroides fragilis Citrobacter spp. Enterobacter cloacae complex Escherichia coli Haemophilus influenzae Kingella kingae Klebsiella aerogenes Klebsiella pneumoniae group Morganella morganii Neisseria gonorrhoeae Proteus spp. Pseudomonas aeruginosa Salmonella spp. Serratia marcescens Yeast: Nery spp. Nery albicans us Megan Palomo NP MICROBIOLOGY - GENERAL OR DERABLES Final Result [facility] CLIA # [id number] [address] [place], [place] [id number] * ANAEROBIC/AEROBIC CULTURE W GRAM STAIN (06/20/2025 12:39 PM CDT) CULTURE No aerobic or anaerobic growth 06/23/2025 10:14 AM CDT [facility] GRAM STAIN No organisms observed 06/23/2025 10:14 AM CDT [facility] GRAM STAIN 4+ (Heavy) Polymorphonuclear WBC 06/23/2025 10:14 AM CDT [facility] Synovial fluid (Knee, right) Collection / Unknown 06/20/2025 12:39 PM CDT 06/20/2025 12:46 PM CDT us Megan Palomo MILK DRIVER MICROBIOLOGY - GENERAL OR DERABLES Final Result Performing Organization Address City/[facility]/ZIP Co de Phone Number [facility] CLIA # [id number] [address] [address] [place] [address] * CRYSTAL IDENTIFICATION (06/20/2025 12:39 PM CDT) JOINT FLD CRYSTAL TYPE No crystals polarized No crystals polarized 06/20/2025 12:58 PM CDT [facility] Synovial fluid (Knee, right) Collection / Unknown 06/20/2025 12:39 PM CDT 06/20/2025 12:46 PM CDT us Megan Palomo MILK DRIVER BODY FLUIDS AND STOOLS Fi nal Result Performing Organization Address City/[facility]/ZIP Co de Phone Number [facility] CLIA # [id number] [address] [place] [address] * (ABNORMAL) CELL COUNT WITH DIFFERENTIAL, BODY FLUID (06/20/2025 12:39 PM CDT) APPEARANCE, BODY FLUID Bloody 06/20/2025 1:40 PM CDT [facility] COLOR, FLD Red 06/20/2025 1:40 PM CDT [facility] TOTAL NUCLEATED CELLS, FLD (AUTO) 82,240(H) 13 - 180 /ul 06/20/2025 1:40 PM CDT [facility] TOTAL RBC'S, FLD (AUTO) 291,000(H) 0 - 2,000 /ul 06/20/2025 1:40 PM CDT [facility] NEUTROPHILS, FLD 93(H) 0 - 25 % 06/20/2025 1:40 PM CDT [facility] MONOCYTE/MACRO PHAGE, FLD 7 0 - 71 % 06/20/2025 1:40 PM CDT [facility] Synovial fluid (Knee, right) Collection / Unknown 06/20/2025 12:39 PM CDT 06/20/2025 12:46 PM CDT Megan Palomo MILK DRIVER BODY FLUIDS AND STOOLS Fi nal Result Performing Organization Address [facility]/ZIP Co de Phone Number [facility] CLIA # [id number] [address] [place] [address] * (ABNORMAL) C-REACTIVE PROTEIN (06/20/2025 1:39 AM CDT) Pathologist [facility] CRP 311.5(H) 0.0 - 5.0 mg/L 06/20/2025 8:37 AM CDT [facility] Blood Venipuncture / Unknown 06/20/2025 1:39 AM CDT 06/20/2025 2:24 AM CDT Megan Palomo MILK DRIVER CHEMISTRY ORDERABLES Alla l Result [facility] # [id number] [address] [place] [address] * XR KNEE 1 OR 2 VW RIGHT (06/19/2025 9:45 AM CDT) Anatomical Region Laterality Modality Lower Extremity Computed Radiogr aphy 06/19/2025 9:45 AM CDT Impressions 06/19/2025 10:02 AM CDT IMPRESSION: Please see below. Exam: XR KNEE 1 OR 2 VW RIGHT Date/Time of Exam: 06/19/2025 9:45 AM Reason For Exam: Pain. Diagnosis: OLIMPIA (acute kidney injury); Leukocytosis, unspecified type; Urinary tract infection without hematuria, site unspecified. Findings: Small to moderate joint effusion within suprapatellar pouch. Mild degenerative patellofemoral degenerative arthropathy. Medial and lateral joint spaces well-maintained. No acute osseous pathology. No subluxation. Narrative Procedure Note Ellis Brown MD - 06/19/2025 IMPRESSION: Please see below. Exam: XR KNEE 1 OR 2 VW RIGHT Date/Time of Exam: 06/19/2025 9:45 AM Reason For Exam: Pain. Diagnosis: OLIMPIA (acute kidney injury); Leukocytosis, unspecified type; Urinary tract infection without hematuria, site unspecified. Findings: Small to moderate joint effusion within suprapatellar pouch. Mild degenerative patellofemoral degenerative arthropathy. Medial and lateral joint spaces well-maintained. No acute osseous pathology. No subluxation. Randi Marrero MD DIAGNOSTIC IMAGING ORDER BALDEMAR Final Result * CT HEAD WO CONTRAST (06/18/2025 9:46 PM CDT) Anatomical Region Laterality Modality Head Computed Tomogra phy 06/18/2025 9:46 PM CDT Impressions 06/18/2025 9:52 PM CDT IMPRESSION: No acute intracranial abnormality. MACRO: None Narrative 06/18/2025 9:52 PM CDT EXAMINATION: CT HEAD WO CONTRAST CLINICAL HISTORY: ASSOCIATED DIAGNOSIS: Neuro deficit, acute, stroke suspected ORDERING PROVIDER: CITLALI HERNANDEZ TECHNOLOGISTS NOTE: COMPARISON: April 30, 2015 TECHNIQUE: Thin axial imaging of the head was performed without intravenous contrast. FINDINGS: No acute intracranial hemorrhage or extra-axial fluid collection. Prominence of the ventricles and mild generalized parenchymal volume loss. No hydrocephalus. No mass effect, midline shift or other herniation. Basal cisterns are adequately preserved.Sellar contour is unremarkable for age. Subtle subcortical supratentorial white matter hypoattenuation which are nonspecific but compatible with mild chronic microvascular ischemic changes. The skull and paranasal sinuses are normal. There has been cataract surgery. Procedure Note Joon Valiente MD - 06/18/2025 EXAMINATION: CT HEAD WO CONTRAST CLINICAL HISTORY: ASSOCIATED DIAGNOSIS: Neuro deficit, acute, stroke suspected ORDERING PROVIDER: CITLALI HERNANDEZ TECHNOLOGISTS NOTE: COMPARISON: April 30, 2015 TECHNIQUE: Thin axial imaging of the head was performed without intravenous contrast. FINDINGS: No acute intracranial hemorrhage or extra-axial fluid collection. Prominence of the ventricles and mild generalized parenchymal volume loss. No hydrocephalus. No mass effect, midline shift or other herniation. Basal cisterns are adequately preserved.Sellar contour is unremarkable for age. Subtle subcortical supratentorial white matter hypoattenuation which are nonspecific but compatible with mild chronic microvascular ischemic changes. The skull and paranasal sinuses are normal. There has been cataract surgery. IMPRESSION: No acute intracranial abnormality. MACRO: None Citlali Hernandez DO CT ORDERABLES Final R esult * BLOOD CULTURE (06/18/2025 9:05 PM CDT) Only the most recent of2 resultswithin the time period is included. BLOOD CULTURE No growth 06/23/2025 10:03 PM CDT [facility] Blood (Peripheral) Venipuncture / Unknown 06/18/2025 9:05 PM CDT 06/18/2025 9:18 PM CDT Citlali Hernandez DO MICROBIOLOGY - GENERAL ORDERABLES Final Result [facility] CLIA # [id number] [address] [place] [address] * EXTRA TUBE (URINE LEPE) (06/18/2025 8:18 PM CDT) Urine URINE SPECIMEN OBTAINED BY CLEAN CATCH PROCEDURE / Unknown Collection / Unknown 06/18/2025 8:18 PM CDT 06/18/2025 8:27 PM CDT Citlali Hernandez DO URINE ORDERABLES Final Result [facility] CLIA # [id number] [address] [address] [place] [address] * (ABNORMAL) URINALYSIS WITH REFLEX MICROSCOPIC (06/18/2025 8:18 PM CDT) COLOR UA Pale Yellow Pale to Dark Yellow 06/18/2025 8:36 PM CDT [facility] CLARITY UA Clear Clear 06/18/2025 8:36 PM CDT [facility] SPECIFIC GRAVITY UA 1.020 1.003 - 1.035 06/18/2025 8:36 PM CDT [facility] PH UA 6.0 5.0 - 8.0 06/18/2025 8:36 PM CDT [facility] LEUKOCYTE ESTERASE UA Trace(A) Negative 06/18/2025 8:36 PM CDT [facility] NITRITE UA Negative Negative 06/18/2025 8:36 PM CDT [facility] PROTEIN UA 1+(A) Negative 06/18/2025 8:36 PM CDT [facility] GLUCOSE UA 4+(A) Negative 06/18/2025 8:36 PM CDT [facility] KETONES UA Negative Negative 06/18/2025 8:36 PM CDT [facility] UROBILINOGEN UA <2.0 <2.0 mg/dL 8:36 PM CDT [facility] BILIRUBIN UA Negative Negative 06/18/2025 8:36 PM CDT [facility] BLOOD UA Trace(A) Negative 06/18/2025 8:36 PM CDT [facility] WBC UA 6-10(A) 0 - 2 /hpf 06/18/2025 8:36 PM CDT [facility] RBC UA 0-2 0 - 2 /hpf 06/18/2025 8:36 PM CDT [facility] BACTERIA UA 1+(A) Negative /hpf 06/18/2025 8:36 PM CDT [facility] EPITHELIAL CELLS, URINE 0-5 0 - 5 /hpf 06/18/2025 8:36 PM CDT [facility] Urine URINE SPECIMEN OBTAINED BY CLEAN CATCH PROCEDURE / Unknown Collection / Unknown 06/18/2025 8:18 PM CDT 06/18/2025 8:27 PM CDT Citlali Hernandez DO URINE ORDERABLES Final Result [facility] CLIA # [id number] [address] [place] [address] * URINE CULTURE (06/18/2025 8:18 PM CDT) CULTURE Polymicrobial growth consistent with normal urethral alejandrina and/or colonizing bacteria 06/19/2025 3:42 PM CDT [facility] Urine URINE SPECIMEN OBTAINED BY CLEAN CATCH PROCEDURE / Unknown Collection / Unknown 06/18/2025 8:18 PM CDT 06/18/2025 8:27 PM CDT Citlali Hernandez DO MICROBIOLOGY - GENERAL ORDERABLES Final Result [facility] CLIA # [id number] [address] [place] [address] * XR CHEST PA OR AP 1 VW (06/18/2025 7:23 PM CDT) Anatomical Region Laterality Modality Chest Computed Radiogr aphy 06/18/2025 7:35 PM CDT Impressions 06/18/2025 8:28 PM CDT IMPRESSION: 1. Borderline enlarged heart size. 2. No focal pneumonia. Narrative 06/18/2025 8:28 PM CDT EXAM: XR CHEST PA OR AP 1 VW DIAGNOSIS/REASON FOR EXAM: Difficulty Breathing. DATE AND TIME: 06/18/2025 7:23 PM COMPARISON: None TECHNIQUE: Upright AP view of the abdomen. FINDINGS: No focal consolidation, pleural effusion, or pneumothorax is identified. The cardiac silhouette is borderline enlarged. The bones are unremarkable. Procedure Note Boo Velasco MD - 06/18/2025 EXAM: XR CHEST PA OR AP 1 VW DIAGNOSIS/REASON FOR EXAM: Difficulty Breathing. DATE AND TIME: 06/18/2025 7:23 PM COMPARISON: None TECHNIQUE: Upright AP view of the abdomen. FINDINGS: No focal consolidation, pleural effusion, or pneumothorax is identified. The cardiac silhouette is borderline enlarged. The bones are unremarkable. IMPRESSION: 1. Borderline enlarged heart size. 2. No focal pneumonia. Citlali Hernandez DO DIAGNOSTIC IMAGING ORDE RABLES Final Result * LACTIC ACID (06/18/2025 7:15 PM CDT) LACTIC ACID 1.0 <=2.0 mmol/L 06/18/2025 7:46 PM CDT [facility] Blood Venipuncture / Unknown 06/18/2025 7:15 PM CDT 06/18/2025 7:22 PM CDT Citlali Hernandez DO CHEMISTRY ORDERABLES Fi nal Result [facility] CLIA # [id number] [address] [facility] [place] [address] * TSH (06/18/2025 6:54 PM CDT) TSH 3.12 0.27 - 4.20 uIU/mL 06/18/2025 7:37 PM CDT [facility] Blood Venipuncture / Unknown 06/18/2025 6:54 PM CDT 06/18/2025 6:59 PM CDT Karl Butler MECHANICAL OPERATOR CHEMISTRY ORDERABLES Alla l Result Performing Organization Address [facility] Co de Phone Number [facility] CLIA # [id number] [address] [address] [place] [address] * T4 FREE (06/18/2025 6:54 PM CDT) Pathologist [facility] T4 FREE 1.23 0.81 - 1.70 ng/dL 06/18/2025 7:37 PM CDT [facility] Blood Venipuncture / Unknown 06/18/2025 6:54 PM CDT 06/18/2025 6:59 PM CDT Citlali Hernandez DO CHEMISTRY ORDERABLES Fi nal Result Performing Organization Address [facility] de Phone Number [facility] CLIA # [id number] [address] [place] [address] * (ABNORMAL) MAGNESIUM LEVEL (06/18/2025 6:54 PM CDT) Pathologist [facility] MAGNESIUM 3.4(H) 1.6 - 2.4 mg/dL 06/18/2025 7:37 PM CDT [facility] Blood Venipuncture / Unknown 06/18/2025 6:54 PM CDT 06/18/2025 6:59 PM CDT Karl Butler APRN CHEMISTRY ORDERABLES Alla l Result [facility] CLIA # [id number] [address] [address] [place] [address] * (ABNORMAL) COMPREHENSIVE METABOLIC PANEL (06/18/2025 6:54 PM CDT) SODIUM 134(L) 136 - 145 mmol/L 06/18/2025 7:37 PM CDT [facility] POTASSIUM 5.5(H) 3.5 - 5.1 mmol/L 06/18/2025 7:37 PM CDT [facility] CHLORIDE 100 98 - 107 mmol/L 06/18/2025 7:37 PM CDT [facility] CO2 22 22 - 29 mmol/L 06/18/2025 7:37 PM CDT [facility] CALCIUM 8.9 8.8 - 10.2 mg/dL 06/18/2025 7:37 PM CDT [facility] BUN 53(H) 8 - 23 mg/dL 06/18/2025 7:37 PM CDT [facility] CREATININE 1.83(H) 0.51 - 0.95 mg/dL 06/18/2025 7:37 PM CDT [facility] Comment:The GFR result is no t clinically significant on patients <18 or >70 years of age. GLUCOSE 286(H) 74 - 99 mg/dL 06/18/2025 7:37 PM CDT [facility] TOTAL PROTEIN 7.6 6.4 - 8.3 g/dL 06/18/2025 7:37 PM CDT [facility] ALBUMIN 3.6 3.5 - 5.2 g/dL 06/18/2025 7:37 PM CDT [facility] BILIRUBIN TOTAL 0.3 0.0 - 1.0 mg/dL 06/18/2025 7:37 PM CDT [facility] ALKALINE PHOSPHATASE 125(H) 35 - 104 U/L 06/18/2025 7:37 PM CDT [facility] AST 14 10 - 35 U/L 06/18/2025 7:37 PM CDT [facility] ALT 9 <=35 U/L 06/18/2025 7:37 PM CDT [facility] GFR 29 mL/min/1. 73 sq meter 06/18/2025 7:37 PM CDT [facility] Comment:eGFR calculated with 2020 CKD-EPI equation. Vegetarian diet, extremely high or low muscle mass, and may affect results. Cystatin C with Glomerular Filtration Rate is a suitable alternative for these patients. ANION GAP 12 9 - 20 mmol/L 06/18/2025 7:37 PM CDT [facility] Blood Venipuncture / Unknown 06/18/2025 6:54 PM CDT 06/18/2025 6:59 PM CDT us Karl Butler MECHANICAL OPERATOR CHEMISTRY ORDERABLES Alla awan Result Performing Organization Address City/State/[facility] Co de Phone Number [facility] CLIA # [id number] [address] [address] * EKG 12-LEAD (06/18/2025 6:24 PM CDT) 06/18/2025 6:24 PM CDT Narrative INTERFACE SYSTEM - 06/20/2025 12:56 PM CDT [address] [address] Test Date: 2025-06-18 Pat Name: AMBIKASARA TRUJILLO Department: 11 Room: Gender: Female Die Cutter Diamond: [id number] : 1955 Requested By: Order Number: [id number] Reading MD: Mdaelin Leal Measurements Intervals [place] Rate: 92 P: -16 VA: 186 QRS: 0 QRSD: 82 T: 58 QT: 360 QTc: 445 Interpretive Statements Normal sinus rhythm Normal ECG Electronically Signed On 06-20-2025 12:56:53 CDT by Madelin Leal Procedure Note Provider, Historical - 06/20/2025 [facility] [address] [place] [address] Test Date: 2025-06-18 Pat Name: AMBIKA CASSANDRA Department: 11 Room: Gender: Female Die Cutter Diamond: [id number] : 1955 Requested By: Order Number: [id number] Reading MD: Madelin Leal Measurements Intervals [place] Rate: 92 P: -16 VA: 186 QRS: 0 QRSD: 82 T: 58 QT: 360 QTc: 445 Interpretive Statements Normal sinus rhythm Normal ECG Electronically Signed On 06-20-2025 12:56:53 CDT by Madelin Leal us Citlali Hernandez DO ECG ORDERABLES Final R esult INTERFACE SYSTEM Refer to clinic/hospital department * Critical Care (06/18/2025 6:07 PM CDT) Narrative Citlali Hernandez DO - 06/18/2025 6:07 PM CDT Citlali Hernandez DO 06/19/2025 12:09 AM Critical Care Performed by: Citlali Hernandez DO Authorized by: Citlali Hernandez DO Critical care provider statement: Critical care time (minutes): 35 Critical care time was exclusive of: Separately billable procedures and treating other patients and teaching time Critical care was necessary to treat or prevent imminent or life-threatening deterioration of the following conditions: Acute kidney injury, leukocytosis, UTI, hyperkalemia. Critical care was time spent personally by me on the following activities: Review of old charts, re-evaluation of patient's condition, pulse oximetry, examination of patient, discussions with consultants, evaluation of patient's response to treatment, obtaining history from patient or surrogate, ordering and performing treatments and interventions, ordering and review of laboratory studies and ordering and review of radiographic studies I assumed direction of critical care for this patient from another provider in my specialty: no Care discussed with: admitting provider us Citlali Hernandez DO PROCEDURE/MINOR SURGICA L ORDERABLES Final Result * (ABNORMAL) MICROALBUMIN/CREATININE RATIO, RANDOM UR (04/08/2020 10:05 AM CDT) MICROALBUMIN, URINE 11.7 No Reference Range mg/dL 04/08/2020 4:07 PM CDT [facility] CREATININE, URINE 46.1 29.0 - 226.0 mg/dL 04/08/2020 4:07 PM CDT [facility] Comment:Reference Range vari es with fluid intake and diet. MICROALBUMIN/ CREAT RATIO, UR 253.8(H) <25.0 mg/g 04/08/2020 4:07 PM CDT [facility] Urine URINE SPECIMEN OBTAINED BY CLEAN CATCH PROCEDURE / Unknown Collection / Unknown 04/08/2020 10:05 AM CDT 04/08/2020 2:30 PM CDT [facility] - 04/08/2020 4:07 PM CDT Condition Microalbumin/Creat ratio Normal Males <17 Normal Females <25 Microalbuminuria Males 17-299 Microalbuminuria Females 25-299 Overt proteinuria >=300 Raymond Morrissey DO URINE ORDERABLES Final Result [facility] CLIA# [id number] [address] [place] [address] * (ABNORMAL) HEMOGLOBIN A1C (04/08/2020 10:05 AM CDT) HEMOGLOBIN A1C 10.8(H) See Comment % 04/08/2020 3:02 PM CDT [facility] EST. AVG GLUCOSE, A1C 263 mg/dL 04/08/2020 3:02 PM CDT [facility] Blood Venipuncture / Unknown 04/08/2020 10:05 AM CDT 04/08/2020 2:31 PM CDT [facility] - 04/08/2020 3:02 PM CDT HGB A1C INTERPRETATION NORMAL: <5.7% PRE-DIABETES: 5.7 - 6.4% DIABETES: 6.5% OR GREATER Falsely low A1C measurements can occur when: 1. Anemia and/or hemolytic anemia is present. 2. Hemoglobin variants present. 3. Renal failure. 4. Transfusion of blood product in the last 120 days. We recommend ordering a fructosamine test([id number]) to more accurately assess glycemic status if any of the above conditions are present. Raymond Morrissey DO CHEMISTRY ORDERABLES Final Resul t [facility] CLIA# [id number] [facility] [place] [address] * (ABNORMAL) LIPID PANEL (04/08/2020 10:05 AM CDT) CHOLESTEROL 174 <200 mg/dL 04/08/2020 3:23 PM CDT [facility] TRIGLYCERIDE 382(H) <150 mg/dL 04/08/2020 3:23 PM CDT [facility] HDL 37(L) 40 - 59 mg/dL 04/08/2020 3:23 PM CDT [facility] LDL CALCULATED 61 <100 mg/dL 04/08/2020 3:23 PM T [facility] NON-HDL CHOLESTEROL 137(H) <130 mg/dL 04/08/2020 3:23 PM T [facility] Blood Venipuncture / Unknown 04/08/2020 10:05 AM CDT 04/08/2020 2:32 PM CDT Narrative [facility] - 04/08/2020 3:23 PM [...] Morrissey DO CHEMISTRY ORDERABLES Final Resul t [facility] CLIA# [id number] [address] [place] [address] * COLONOSCOPY REPORT (11/18/2019 10:59 AM DIRECTOR SHIP) Narrative Procedure Note Darrell Simms MD - 11/18/2019 10:59 AM CST Procedures signed by Darrell Simms MD at 11/18/2019 10:59 AM Author: Darrell Simms MD Service: -- Author Type: Physician Filed: 11/18/2019 10:59 AM Date of Service: 11/18/2019 10:59 AM Status:Signed Oil Inspector: Darrell Simms MD (Physician) Procedure Orders 1. COLONOSCOPY REPORT [[id number]] ordered by Darrell Simms MDat 11/18/19 1059 [facility] [place] [facility] Patient Name: Ambika Trujillo Procedure Date: 11/18/2019 Date of : 1955 [...] Scope Out: 10:56:31 AM [address] [place], [place] us Sgf Scanning GI PROCEDURE ORDERABLES Edited R esult - Final * (ABNORMAL) COLON CANCER SCREEN, STOOL DNA (10/21/2019 11:00 PM DIRECTOR SHIP) COLOGUARD RESULT Positive (A) Not Applicable 10/28/2019 10:26 PM DIRECTOR SHIP [facility] Comment: It is recommended that a positive [...] Erika Sheets al, N Engl J Med 2014;370(14):8670-6233.) Test Type: Composite algorithmic analysis of stool [...] can be accessed at the following location: [email or web address]. Additional description of the Cologuard test process, warnings and precautions can be found at [email or web address]. Rx Only. Stool STOOL SPECIMEN / Unknown 10/21/2019 11:00 PM DIRECTOR SHIP 10/23/2019 4:30 PM DIRECTOR SHIP Brielle Holcomb MD BODY FLUIDS AND STOOLS Final Result [facility] CLIA # [id number] [address] [place] [address] * MAMMO SCRN BILAT 3D RENETTA W [...] * DIABETES EYE EXAM (11/05/2018 12:00 AM DIRECTOR SHIP) [facility] HEALTH MAINTENANCE Final Result * XR DEXA BONE DENSITY AXIAL 1 OR MORE SITES (08/04/2018 10:12 AM DIRECTOR SHIP) Anatomical Region Laterality Modality Other Impressions 08/04/2018 4:55 PM DIRECTOR SHIP Abnormal examination Low bone density/osteopenia is present [...] clinical management available online at [email or web address]/. Enter [employer] for Select DXA and the Femoral Neck BMD value. Narrative 08/04/2018 4:55 PM DIRECTOR SHIP DEXA Evaluation of the Lumbar Spine, left [...] clinical management available online at [email or web address].[email or web address]/. Enter [employer] for Select DXA and the Femoral Neck BMD value. us Ada SUTTON DIAGNOSTIC IMAGING ORDERABLES Final Result * OCCULT BLOOD IMMUNOASSAY, COLORECTAL SCREEN (04/30/2016 5:13 PM CDT) OCCULT BLOOD, STOOL Negative Negative 05/01/2016 9:52 AM CDT [facility] Stool STOOL SPECIMEN / Unknown Collection / Unknown 04/30/2016 5:13 PM CDT 04/30/2016 5:13 PM CDT Loreto Abdi MD BODY FLUIDS AND STOOLS Final Re sult [facility] CLIA# [id number] [address] [place] [address] from Last 3 Months or Most Recently Relevant to Health Maintenance Insurance AENA O MCR Advance Directives For more information, please contact: [phone] * Full Code (Latest Code Status on File) Date Activated Date Inactivated Comments 06/19/2025 5:47 AM 06/24/2025 6:58 PM Care Teams Tag And Label Cutter Relationship Specialty Start Date End Date Marcia Flannery MD [address] [place] [address] PCP - General Family Practice 06/19/25
--- OUTSIDE RECORDS SUMMARY | 2025-07-03 22:37 | XMS_ITS | Encounter Summary ---
Author Organization [facility] Address [address] [place] [address] Care Team Providers Care School Community Relations Coordinator Name Role Phone Marcia Flannery MD Primary Care Provider Reason for Visit * Reason Comments Provider Call Encounter Details Date Type Department Care Team (Late st Contact Info) Description 07/02/2025 Telephone [facility] Family Medicine [place] [address] [place] [address] Taylor Fletcher, DO [address] [place] [address] Provider Call Social History Tobacco Use Types Packs/Day Years [...] worry about transportation for future doctor visits, warehouse picker medication, etc.? 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 Topic: Ygauluaa-Yu-Fjfhpynw Call >> Jul 02, 2025 10:31 AM Aleks Bob wrote: Caller is requesting to speak with Clinical Care Team. Caller Name: [facility] Callback Number: [phone] Is the caller a Physician, Nurse Practitioner or Physician Quill Stripper? No Call Notes: Wanting an admission summary with a note to set up for home health from Dr Fletcher who they say saw patient at the [facility], patient has never been seen by Dr Fletcher at [facility] and was asked to transfer them over. Is this addressing an immediate patient care need? No documented in this encounter Plan of Treatment Upcoming Encounters Date Type Department Care Team (Late st Contact Info) Description 02/02/2026 2:30 PM CDT Office Visit [facility] Neurosurgery [address] [place] [address] Boo Rubin MD [address] [place] [address] documented as of this encounter Visit Diagnoses Not on filedocumented in this encounter Care Teams School Community Relations Coordinator Relationship Specialty Start Date End Date Marcia Flannery MD [address] [place] [phone] PCP - General Family Practice 06/19/25 documented as of this encounter
--- OUTSIDE RECORDS SUMMARY | 2025-07-03 22:37 | XMS_ITS | Encounter Summary ---
Author Organization [facility] Address [address] [place] [address] Care Team Providers Care Canine Enforcement Officer Name Role Phone Raymond Morrissey Kaylan SARMIENTO Primary Care Provider [phone] Encounter Details Date Type Department Care Team (Late st Contact Info) Description 12/01/[address] [facility] [address] [facility] [address] [place] [phone] Loreto Abdi MD [address] [place] [address] Other screening mammogram (Primary Dx) Social History Tobacco Use Types Packs/Day Years Used Date Smoking Tobacco: Never Smokeless Tobacco: Never Alcohol Use Standard Drinks/Week Comments No 0 (1 standard drink = 0.6 oz pur e alcohol) Comments No Sex and Gender Information Value Date Recorded Sex Assigned at Not on file Legal Sex Female 6:19 AM SUPERVISOR CUSTOMER RECORDS DIVISION Gender Identity Not on file Sexual Orientation [...] Primary documented in this encounter Care Teams Canine Enforcement Officer Relationship Specialty Start Date End Date Raymond Morrissey DO PCP - General Family Practice 04/11/20 11/16/20 documented as of this encounter
--- OUTSIDE RECORDS SUMMARY | 2025-07-03 22:37 | XMS_ITS | Clinical Summary ---
[facility] Organization [facility] Address [address] [place] [address] Care Team Providers Care Chief Deputy Court Clerk Name Role Phone Unavailable Primary Care Provider [...] (PRISTIQ) 50 mg Extended Release 24 hour tabletIndications:Hardy pause Take 1 Tablet (50 mg) by [...] kidney disease) stage 3, GFR 30-59 ml/min ([facility]) Take 1 [...] 1 020 Active traMADoL (ULTRAM) 50 mg tabletIndications:Computer Architect ravinder bilateral low back pain without sciatica Take 2 Tablets (100 mg) by mouth 2 times daily as needed for Pain. 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 90 Tablet 020 Active tiZANidine (ZANAFLEX) 4 [...] on file Legal Sex Female 6:19 AM DATA SERVICES DEVELOPER Gender Identity Not on file Sexual Orientation Not on file Occupation Industry Job Start Date Job End Date Not on file Not on file Not on file Not on file Last Filed Vital Signs Vital Sign Reading Time Taken Comments Blood Pressure 138/70 04/08/2020 8:41 AM CDT Pulse 80 04/08/2020 8:41 AM CDT Temperature 36.3 C (97.4 F) 10/14/2019 1:35 PM DATA SERVICES DEVELOPER Respiratory Rate 18 11/18/2019 11:05 AM DATA SERVICES DEVELOPER Oxygen Saturation 96% 04/08/2020 8:41 AM CDT [...] series) 02/24/2028 Medical Devices Implanted Type Area Patrol Deputy Sheriff Device Identifier Shelf Expiration Date Model / Serial / Lot Lens Io Tecyessenia 1pc 21.5 [id number] - [id number] Implanted:Qty: 1 on 04/01/2017 by Jim Akers DO at [facility] Right: Eye [employer] 01/18/2021 [id number] / [id number] / Lens Io Tecnis 1pc 21.5 [id number] - [id number] Implanted:Qty: 1 on 04/15/2017 by Jim Akers, DO at [facility] Left: Eye [employer] 01/31/2021 [id number] / [id number] / Procedures Procedure Name Priority Date/Time Associated Diagnosis Comments MICROALBUMIN/CREATIN INE RATIO, RANDOM UR Routine 04/08/2020 10:05 AM CDT Essential hypertension CKD (chronic kidney disease) stage 3, GFR 30-59 ml/min ([facility]) Type 2 diabetes mellitus with hyperglycemia, without long-term current use of insulin ([facility]) LIPID PANEL Routine 04/08/2020 10:05 AM CDT Hypercholesteremia Screening, ischemic heart disease HEMOGLOBIN A1C Routine 04/08/2020 10:05 AM CDT Type 2 diabetes mellitus with hyperglycemia, without long-term current use of insulin ([facility]) COLONOSCOPY REPORT 11/18/2019 11 :00 AM DATA SERVICES DEVELOPER COLON CANCER SCREEN, STOOL DNA Routine 10/21/2019 11:00 PM DATA SERVICES DEVELOPER Screening for colon cancer MAMMO 3D RENETTA SCREEN BILAT W OR WO CAD Routine 01/05/2019 1:18 PM CDT Visit for screening mammogram HM DIABETES EYE EXAM Routine 11/05/2018 XR DEXA BONE DENSITY AXIAL 1 OR MORE SITES Routine 08/04/2018 10:12 AM DATA SERVICES DEVELOPER HPTH (hyperparathyroidis m) OCCULT BLOOD IMMUNOASSAY, COLORECTAL SCREEN Routine 04/30/2016 5:13 PM CDT Visit for screening mammogram from Last 3 Months or Most Recently Relevant to Health Maintenance Results * (ABNORMAL) MICROALBUMIN/CREATININE RATIO, RANDOM UR (04/08/2020 10:05 AM CDT) MICROALBUMIN, URINE 11.7 No Reference Range mg/dL 04/08/2020 4:[address] [facility] CREATININE, URINE 46.1 29.0 - 226.0 mg/dL 04/08/2020 4:[address] [facility] Comment:Reference Range vari es with fluid intake and diet. MICROALBUMIN/ CREAT RATIO, UR 253.8(H) <25.0 mg/g 04/08/2020 4:[address] [facility] Urine URINE SPECIMEN OBTAINED BY CLEAN CATCH PROCEDURE / Unknown Collection / Unknown 04/08/2020 10:05 AM CDT 04/08/2020 2:30 PM CDT [facility] - 04/08/2020 4:07 PM CDT Condition Microalbumin/Creat ratio Normal Males <17 Normal Females <25 Microalbuminuria Males 17-299 Microalbuminuria Females 25-299 Overt proteinuria >=300 Raymond Morrissey DO URINE ORDERABLES Final Result [facility]# [id number] [address] [place] [id number] * (ABNORMAL) HEMOGLOBIN A1C (04/08/2020 10:05 AM CDT) HEMOGLOBIN A1C 10.8(H) See Comment % 04/08/2020 3:[address] [facility] EST. AVG GLUCOSE, A1C 263 mg/dL 04/08/2020 3:[address] [facility] Blood Venipuncture / Unknown 04/08/2020 10:05 AM CDT 04/08/2020 2:31 PM CDT [facility] - 04/08/2020 3:02 PM CDT HGB A1C INTERPRETATION NORMAL: <5.7% PRE-DIABETES: 5.7 - 6.4% DIABETES: 6.5% OR GREATER Falsely low A1C measurements can occur when: 1. Anemia and/or hemolytic anemia is present. 2. Hemoglobin variants present. 3. Renal failure. 4. Transfusion of blood product in the last 120 days. We recommend ordering a fructosamine test([id number]) to more accurately assess glycemic status if any of the above conditions are present. Raymond Morrissey DO CHEMISTRY ORDERABLES Final Resul t [facility] CLIA# [id number] [place] [address] * (ABNORMAL) LIPID PANEL (04/08/2020 10:05 AM CDT) CHOLESTEROL 174 <200 mg/dL 04/08/2020 3:[address] [facility] TRIGLYCERIDE 382(H) <150 mg/dL 04/08/2020 3:[address] [facility] HDL 37(L) 40 - 59 mg/dL 04/08/2020 3:[address] [facility] LDL CALCULATED 61 <100 mg/dL 04/08/2020 3:[address] [facility] NON-HDL CHOLESTEROL 137(H) <130 mg/dL 04/08/2020 3:[address] [facility] Blood Venipuncture / Unknown 04/08/2020 10:05 AM CDT 04/08/2020 2:32 PM CDT [facility] - 04/08/2020 3:23 PM [...] Morrissey DO CHEMISTRY ORDERABLES Final Resul t [facility] CLIA# [id number] [address] [place] [address] * COLONOSCOPY REPORT (11/18/2019 11:00 AM DATA SERVICES DEVELOPER) Narrative Procedure Note Darrell Simms MD - 11/18/2019 10:59 AM CST [facility] GI Patient Name: Ambika Nichols Procedure Date: [...] Scope Out: 10:56:31 AM [address] [place], [place] Darrell Simms MD GI PROCEDURE ORDERABLES Final Result * (ABNORMAL) COLON CANCER SCREEN, STOOL DNA (10/21/2019 11:00 PM DATA SERVICES DEVELOPER) COLOGUARD RESULT Positive (A) Not Applicable [facility] Comment: It is recommended that a [...] Erika Sheets al, N Engl J Med 2014;370(14):6641-2552.) Test Type: Composite algorithmic analysis of stool [...] can be accessed at the following location: [email or web address]/results. Additional description of the Cologuard test process, warnings and precautions can be found at [email or web address]. Rx Only. Stool STOOL SPECIMEN / Unknown 10/21/2019 11:00 PM DATA SERVICES DEVELOPER 10/23/2019 4:30 PM DATA SERVICES DEVELOPER Brielle Holcomb MD BODY FLUIDS AND STOOLS Final Result [facility] CLIA # [id number] [address], [address] [place] [address] * MAMMO SCRN BILAT 3D RENETTA W [...] 1 OR MORE SITES (08/04/2018 10:12 AM DATA SERVICES DEVELOPER) Anatomical Region Laterality Modality Nuclear Medicine 08/04/2018 10:1 2 AM DATA SERVICES DEVELOPER Impressions 08/04/2018 4:55 PM DATA SERVICES DEVELOPER IMPRESSION: Abnormal examination Low bone density/osteopenia is [...] clinical management available online at [email or web address] Enter [employer] for Select DXA and the Femoral Neck BMD value. Narrative 08/04/2018 4:55 PM DATA SERVICES DEVELOPER DEXA Evaluation of the Lumbar Spine, left [...] clinical management available online at [email or web address] Enter [employer] for Select DXA and the Femoral Neck BMD value. Ada [facility] ORDERABLES Final Result * OCCULT BLOOD IMMUNOASSAY, COLORECTAL SCREEN (04/30/2016 5:13 PM CDT) OCCULT BLOOD, STOOL Negative Negative 05/01/2016 9:[address] [facility] Stool STOOL SPECIMEN / Unknown Collection / Unknown 04/30/2016 5:13 PM CDT 04/30/2016 5:13 PM CDT us Loreto Abdi MD BODY FLUIDS AND STOOLS Final Re jonelle [facility]# [id number] [address] [place] [address] from Last 3 Months or Most Recently Relevant to Health Maintenance Advance Directives For more information, please contact: [phone] * Full Code (Latest Code Status on File) Date Activated Date Inactivated Comments 11/18/2019 10:15 AM 11/18/2019 1:45 PM * Full Code Date Activated Date Inactivated Comments 04/15/2017 7:13 AM 04/15/2017 11:07 AM * Full Code Date Activated Date Inactivated Comments 04/01/2017 6:56 AM 04/01/2017 10:16 AM
--- OUTSIDE RECORDS SUMMARY | 2025-07-03 22:37 | XMS_ITS | Encounter Summary ---
Author Organization [facility] Address [address] [place] [address] Care Team Providers Care Dip Lube Operator Name Role Phone Yuni Raymond Kaylan SARMIENTO Primary Care Provider [phone] Reason for Referral * Radiology Services (Routine) [...] Expiration Date Visits Re quested Visits Authorized [id number] Closed 12/03/2018 01/03/2020 1 1 Encounter Details Date Type Department Care Team (Latest Contact Info) Description 12/03/2018 Ancillary Orders [facility] Pre-Registration [place] CALL TO MAKE APPOINTMENT ONLY [address] [place] [address] Brielle Holcomb MD [address] [place] [address] Visit for screening mammogram Social History Tobacco Use Types Packs/Day Years Used Date Smoking Tobacco: Never Smokeless Tobacco: Never Alcohol Use Standard Drinks/Week Comments No 0 (1 standard drink = 0.6 oz pur e alcohol) Comments No Sex and Gender Information Value Date Recorded Sex Assigned at Not on file Legal Sex Female 6:19 AM FORGE HAND Gender Identity Not on file Sexual Orientation [...] mammogram documented in this encounter Care Teams Dip Lube Operator Relationship Specialty Start Date End Date Raymond Morrissey DO PCP - General Family Practice 04/11/20 11/16/20 documented as of this encounter
--- OUTSIDE RECORDS SUMMARY | 2025-07-03 22:38 | XMS_ITS | Encounter Summary ---
Author Organization [facility] Address [address] [place] [address] Care Team Providers Care Rim Technician Name Role Phone Raymond Morrissey DO Primary Care Provider [phone] Encounter Details Date Type Department Care Team (Latest Contact Info) Description 12/18/2000 Outpatient Historical [facility] Woody Mays [place] [address] [place] [phone] Kian Bloom MD NO ADDRESS ON FILE Other screening mammogram (Primary Dx) Social History Tobacco Use Types Packs/Day Years Used Date Smoking Tobacco: Never Assessed Comments Unknown Sex and Gender Information Value Date Recorded Sex Assigned at Not on file Legal Sex Female 6:19 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
--- OUTSIDE RECORDS SUMMARY | 2025-07-03 22:38 | XMS_ITS | Encounter Summary ---
Author Organization [facility] Address [address] Banksn: Epic Prelude ADT [place] [address] Care Team Providers Care Supervisor Of Operations Name Role Phone Raymond Morrissey DO Primary Care Provider [phone] Encounter Details Date Type Department Care Team (Latest Contact Info) Description 08/09/2001 Emergency Raymond Winn MD NO ADDRESS ON FILE Social History Tobacco Use Types Packs/Day Years Used Date Smoking Tobacco: Never Assessed Comments Unknown Sex and Gender Information Value Date Recorded Sex Assigned at Not on file Legal Sex Female 6:19 AM FLOUR INSPECTOR Gender Identity Not on file Sexual Orientation Not on file documented as of this encounter Plan of Treatment Not on file documented as of this encounter Visit Diagnoses Not on filedocumented in this encounter Care Teams Supervisor Of Operations Relationship Specialty Start Date End Date Raymond Morrissey DO PCP - General Family Practice 04/11/20 11/16/20 documented as of this encounter
--- OUTSIDE RECORDS SUMMARY | 2025-07-03 22:38 | XMS_ITS | Encounter Summary ---
Author Organization [facility] Address [address] [place] [address] Care Team Providers Care Painter And Grader Cork Name Role Phone Raymond Morrissey DO Primary Care Provider [phone] Encounter Details Date Type Department Care Team (Latest Contact Info) Description 03/26/2006 Outpatient Historical [facility] [place] [address] Kartik Gonzalez MD NO ADDRESS ON FILE Adhesive Capsulit Shlder (Primary Dx); Other Affections of Shoulder Region, not Elsewhere Classified Social History Tobacco Use Types Packs/Day Years Used Date Smoking Tobacco: Never Assessed Comments Unknown Sex and Gender Information Value Date Recorded Sex Assigned at Not on file Legal Sex Female 6:19 AM ASSEMBLER PIANO Gender Identity Not on file Sexual Orientation Not on file documented as of this encounter Plan of Treatment Not on file documented as of this encounter Visit Diagnoses Diagnosis Adhesive capsulit shlder- Primary Adhesive capsulitis of shoulder Other affections of shoulder region, not elsewhere classified documented in this encounter Care Teams Painter And Grader Cork Relationship Specialty Start Date End Date Raymond Morrissey DO PCP - General Family Practice 04/11/20 11/16/20 documented as of this encounter
--- OUTSIDE RECORDS SUMMARY | 2025-07-03 22:38 | XMS_ITS | Encounter Summary ---
Author Organization [facility] Address [address] [place] [address] Care Team Providers Care Poultry Husbandman Name Role Phone Raymond Morrissey DO Primary Care Provider [phone] Encounter Details Date Type Department Care Team (Latest Contact Info) Description 07/15/2001 Outpatient Historical [facility] Internal Medicine[facility] [address] [place] [address] Filiberto Ramirez MD [address] [place] [address] LOCAL SKIN INFECTION NOS (Primary Dx); COUGH; DIABETES UNCOMPL ADULT-TYPE II (CMS/HCC) Social History Tobacco Use Types Packs/Day Years Used Date Smoking Tobacco: Never Assessed Comments Unknown Sex and Gender Information Value Date Recorded Sex Assigned at Not on file Legal Sex Female 6:19 AM SPARES SCHEDULER Gender Identity Not on file Sexual Orientation Not on file documented as of this encounter Plan of Treatment Not on file documented as of this encounter Visit Diagnoses Diagnosis Unspecified local infection of skin and subcutaneous tissue- Primary Cough Type II or unspecified type diabetes mellitus without mention of complication, not stated as uncontrolled documented in this encounter Care Teams Poultry Husbandman Relationship Specialty Start Date End Date Raymond Morrissey DO PCP - General Family Practice 04/11/20 11/16/20 documented as of this encounter
--- OUTSIDE RECORDS SUMMARY | 2025-07-03 22:38 | XMS_ITS | Encounter Summary ---
Author Organization [facility] Address [address] [place] [address] Care Team Providers Care Cob Sawyer Name Role Phone Raymond Morrissey DO Primary Care Provider [phone] Encounter Details Date Type Department Care Team (Latest Contact Info) Description 04/17/[address] [facility] Orthopedics- [address] [place] [address] Kartik Gonzalez MD NO ADDRESS ON FILE Adhesive Capsulit Shlder (Primary Dx) Social History Tobacco Use Types Packs/Day Years Used Date Smoking Tobacco: Never Assessed Comments Unknown Sex and Gender Information Value Date Recorded Sex Assigned at Not on file Legal Sex Female 6:19 AM DRUG SAFETY DATA MANAGEMENT SPECIALIST Gender Identity Not on file Sexual Orientation Not on file documented as of this encounter Plan of Treatment Not on file documented as of this encounter Visit Diagnoses Diagnosis Adhesive capsulit shlder- Primary Adhesive capsulitis of shoulder documented in this encounter Care Teams Cob Sawyer Relationship Specialty Start Date End Date Raymond Morrissey DO PCP - General Family Practice 04/11/20 11/16/20 documented as of this encounter
--- OUTSIDE RECORDS SUMMARY | 2025-07-03 22:38 | XMS_ITS | Encounter Summary ---
Author Organization [facility] Address [address] [place] [address] Care Team Providers Care Urban Planning Teacher Name Role Phone Raymond Morrissey DO Primary Care Provider [phone] Encounter Details Date Type Department Care Team (Latest Contact Info) Description 02/19/2001 Outpatient Historical [facility] [address] [place] [address] Filiberto Ramirez MD [address] [place] [address] Type II or unspecified type [...] on file Legal Sex Female 6:19 AM CORPORATE SECURITIES RESEARCH ANALYST Gender Identity Not on file Sexual Orientation [...] medications documented in this encounter Care Teams Urban Planning Teacher Relationship Specialty Start Date End Date Raymond Morrissey DO PCP - General Family Practice 04/11/20 11/16/20 documented as of this encounter
--- OUTSIDE RECORDS SUMMARY | 2025-07-03 22:38 | XMS_ITS | Encounter Summary ---
Author Organization [facility] Address [address] [place] [address] Care Team Providers Care Electronic Design Engineer Name Role Phone Raymond Morrissey DO Primary Care Provider [phone] Encounter Details Date Type Department Care Team (Latest Contact Info) Description 10/02/[address] [facility] Internal Medicine-[place] [address] [place] [address] Filiberto Ramirez MD [address] [place] [address] DIABETES UNCOMPL ADULT-TYPE II (CMS/HCC) (Primary Dx); HYPERTENSION NOS Social History Tobacco Use Types Packs/Day Years Used Date Smoking Tobacco: Never Assessed Comments Unknown Sex and Gender Information Value Date Recorded Sex Assigned at Not on file Legal Sex Female 6:19 AM MACHINE STAMPER Gender Identity Not on file Sexual Orientation Not on file documented as of this encounter Plan of Treatment Not on file documented as of this encounter Visit Diagnoses Diagnosis Type II or unspecified type diabetes mellitus without mention of complication, not stated as uncontrolled- Primary Unspecified essential hypertension documented in this encounter Care Teams Electronic Design Engineer Relationship Specialty Start Date End Date Raymond Morrissey DO PCP - General Family Practice 04/11/20 11/16/20 documented as of this encounter
--- OUTSIDE RECORDS SUMMARY | 2025-07-03 22:38 | XMS_ITS | Encounter Summary ---
Author Organization [facility] Address [address] [place] [address] Care Team Providers Care Rn Ante Partum Name Role Phone Raymond Morrissey DO Primary Care Provider Encounter Details Date Type Department Care Team (Latest Contact Info) Description 05/28/2001 Outpatient Historical [facility] Internal [facility] [address] [place] [address] Filiberto Ramirez MD [address] [place] [address] Type II or unspecified type diabetes mellitus without mention of complication, not stated as uncontrolled (Primary Dx); Unspecified menopausal and postmenopausal disorder; Dermatophytosis of nail; Unspecified essential hypertension Social History Tobacco Use Types Packs/Day Years Used Date Smoking Tobacco: Never Assessed Comments Unknown Sex and Gender Information Value Date Recorded Sex Assigned at Not on file Legal Sex Female 6:19 AM FOURDRINIER MACHINE TENDER Gender Identity Not on file Sexual Orientation Not on file documented as of this encounter Plan of Treatment Not on file documented as of this encounter Visit Diagnoses Diagnosis Type II or unspecified type diabetes mellitus without mention of complication, not stated as uncontrolled- Primary Unspecified menopausal and postmenopausal disorder Dermatophytosis of nail Unspecified essential hypertension documented in this encounter Care Teams Rn Ante Partum Relationship Specialty Start Date End Date Raymond Morrissey DO PCP - General Family Practice 7/27/20 3/3/21 documented as of this encounter
--- OUTSIDE RECORDS SUMMARY | 2025-07-03 22:38 | XMS_ITS | Encounter Summary ---
Author Organization [facility] Address [address] [place] [address] Care Team Providers Care Switchboard Clerk Name Role Phone Raymond Morrissey Kaylan SARMIENTO Primary Care Provider [phone] Reason for Visit * Reason Onset Date Comments Needs Orders Written 07/23/2017 Encounter Details Date Type Department Care Team (Late st Contact Info) Description 07/23/2017 Telephone [facility] Woody Mays [place] [address] [place] [address] Lili Astudillo, RD [address] [place] [address] Needs Orders Written Social History Tobacco Use Types Packs/Day Years Used Date Smoking Tobacco: Never Smokeless Tobacco: Never Alcohol Use Standard Drinks/Week Comments No 0 (1 standard drink = 0.6 oz pur e alcohol) Comments No Sex and Gender Information Value Date Recorded Sex Assigned at Not on file Legal Sex Female 6:19 AM BOTTOM SANDER Gender Identity Not on file Sexual Orientation Not on file Occupation Industry Job Start Date Job End Date Not on file Not on file Not on file Not on file documented as of this encounter Plan of Treatment Not on file documented as of this encounter Procedures Procedure Name Priority Date/Time Associated Diagnosis Comments EDUCATION DIABETES, TYPE 2 Routine 07/23/2017 11:50 AM BOTTOM SANDER documented in this encounter Results * EDUCATION DIABETES, TYPE 2 - PEREZ (07/23/2017 11:50 AM BOTTOM SANDER) Education Name DIABETES, TYPE 2 PEREZ EDUCATION INTERFACE Education URL [email or web address] PEREZ EDUCATION INTERFACE EDUCATION ACCESS CODE [id number] PEREZ EDUCATION INTERFACE EDUCATION ISSUE DATE Jul 23, 2017 PEREZ EDUCATION INTERFACE EDUCATION START DATE PEREZ EDUCATION INTERFACE EDUCATION COMPLETED DATE This program was not started and flagged as on: Aug 23, 2017 PEREZ EDUCATION INTERFACE EDUCATION EXPIRATION DATE Aug 22, 2017 PEREZ EDUCATION INTERFACE EDUCATION MESSAGE EVENT PEREZ EDUCATION INTERFACE 07/23/2017 11:5 0 AM BOTTOM SANDER us Audrey Edwards MD EXTERNAL EDUCATION ORDERABLES Fi nal Result PEREZ EDUCATION INTERFACE documented in this encounter Visit Diagnoses Not on filedocumented in this encounter Care Teams Switchboard Clerk Relationship Specialty Start Date End Date Raymond Morrissey DO PCP - General Family Practice 04/11/20 11/16/20 documented as of this encounter
--- OUTSIDE RECORDS SUMMARY | 2025-07-03 22:38 | XMS_ITS | Encounter Summary ---
Author Organization [facility] Address [address] [place] [address] Care Team Providers Care System Developer Associate Manager Name Role Phone Raymond Morrissey DO Primary Care Provider [phone] Encounter Details Date Type Department Care Team (Latest Contact Info) Description 05/14/2006 Outpatient Historical [facility] Orthopedics- [address] [place] [phone] Kartik Gonzalez MD NO ADDRESS ON FILE Adhesive Capsulit Shlder (Primary Dx) Social History Tobacco Use Types Packs/Day Years Used Date Smoking Tobacco: Never Assessed Comments Unknown Sex and Gender Information Value Date Recorded Sex Assigned at Not on file Legal Sex Female 6:19 AM SPEECH PATHOLOGY TEACHER Gender Identity Not on file Sexual Orientation Not on file documented as of this encounter Plan of Treatment Not on file documented as of this encounter Visit Diagnoses Diagnosis Adhesive capsulit shlder- Primary Adhesive capsulitis of shoulder documented in this encounter Care Teams System Developer Associate Manager Relationship Specialty Start Date End Date Raymond Morrissey DO PCP - General Family Practice 04/11/20 11/16/20 documented as of this encounter
--- OUTSIDE RECORDS SUMMARY | 2025-07-03 22:38 | XMS_ITS | Encounter Summary ---
Author Organization [facility] Address [address] [place] [address] Care Team Providers Care Door Machine Operator Name Role Phone Raymond Morrissey DO Primary Care Provider [phone] Encounter Details Date Type Department Care Team (Late st Contact Info) Description 05/28/2001 Outpatient Historical [facility] Laboratory and Imaging Services- [address] [facility] [address] [place] [address] Social History Tobacco Use Types Packs/Day Years Used Date Smoking Tobacco: Never Assessed Comments Unknown Sex and Gender Information Value Date Recorded Sex Assigned at Not on file Legal Sex Female 6:19 AM RADIO REPAIR TEACHER Gender Identity Not on file Sexual Orientation Not on file documented as of this encounter Plan of Treatment Not on file documented as of this encounter Visit Diagnoses Not on filedocumented in this encounter Care Teams Door Machine Operator Relationship Specialty Start Date End Date Raymond Morrissey DO PCP - General Family Practice 04/11/20 11/16/20 documented as of this encounter
[2025-07-03 22:39] VITALS: BP 110/64; PULSE 102; RESP 16; TEMP 36.7; O2SAT 97; BMI 28.1
[2025-07-03 23:09] LABS: Hematocrit 33.6 % (36-47); Hemoglobin 9.70 g/dL (11.27-16.99); Mean Corpuscular HGB Conc 28.9 g/dL (30-55); Mean Corpuscular Hemoglobin 25.2 pg (27-33); Mean Corpuscular Volume 87.3 fl (85-98); Nucleated Red Blood Cells % 0.6 %; Platelet Count 312 10^3/cmm (157-399); Red Blood Count 3.85 10^6/uL (3.85-5.65); White Blood Count 8.90 10^3/uL (3.29-11.43)
[2025-07-03 23:34] LABS: Alanine Aminotransferase 19 U/L (0-33); Albumin Level 3.4 g/dL (3.5-5.2); Alkaline Phosphatase 108 U/L (35-105); Anion Gap 24.0 (5-19); Aspartate Amino Transferase 60 U/L (0-32); Blood Urea Nitrogen 33 mg/dL (8-23); Calcium 9.0 mg/dL (8.5-10.5); Carbon Dioxide 17 mmol/L (22-29); Chloride 98 mmol/L (98-107); Globulin 4.4 g/dL (1.3-4.6); Glucose 339 mg/dL (65-115); Lipase 13 U/L (13-60); Osmolality Calculated 297 mOsm/kg (285-295); Potassium 6.0 mmol/L (3.5-5.1); Sodium 133 mmol/L (136-145); Total Protein 7.8 g/dL (6.6-8.7)
[2025-07-03 23:39] LABS: Creatinine Clr Calc Pharmacy 23.2868
[2025-07-04] VITALS (18 sets, daily range): BP systolic 97–153; BP diastolic 49–77; PULSE 76–110; RESP 16–18; TEMP 36.7–37; O2SAT 91–100; BMI 28.1
--- NOTE | 2025-07-04 00:13 | W.ED.NAVMDI ---
HPI - Nausea/Vomiting/Diarrhea General: Chief complaint: Nausea/Vomiting/Diarrhea Stated complaint: v/ cant keep anything down Time Seen by Provider: 07/04/25 00:04 Source: patient Mode of arrival: ambulatory Limitations: no limitations History of Present Illness: 70-year-old female states been having vomiting over the last 3 days. She states she is not been able to tolerate anything p.o. with multiple episodes of vomiting. States she does have Zofran at home but has been vomited back up. She denies any headache she denies any abdominal pain or fever. She denies any diarrhea denies any worse improving factors. Associated nausea: Yes Associated symtoms: Reports nausea Related Data Home Medications ?Medication ?Instructions ?Recorded ?Confirmed magnesium glycinate 118 mg PO DAILY 02/16/25 06/04/25 aspirin 81 mg tablet 81 mg PO DAILY 05/24/25 06/04/25 desvenlafaxine succinate 50 mg 50 mg PO DAILY 06/04/25 06/04/25 tablet,extended release 24 hr Previous Rx's ?Medication ?Instructions ?Recorded blood-glucose transmitter (Dexcom #1 ea 10/19/24 G6 Transmitter device) blood-glucose,director of program management,cont #1 ea 10/19/24 (Dexcom G6 Thermal Cutting Machine Operator) blood sugar diagnostic (Blood #50 ea 12/09/24 Glucose Test strips) blood-glucose meter #1 ea 12/09/24 lancets 32 gauge (E-Z Ject Lancets) #100 ea 12/09/24 empagliflozin 25 mg tablet 25 mg PO DAILY 90 days #90 tabs 02/23/25 (Jardiance) hydrochlorothiazide 12.5 mg tablet 12.5 mg PO QAM 90 days #90 tabs 02/23/25 levothyroxine 88 mcg tablet 88 mcg PO DAILY 90 days #90 tabs 02/23/25 lisinopril 40 mg tablet 40 mg PO DAILY 90 days #90 tabs 02/23/25 metoprolol succinate 50 mg 50 mg PO DAILY 90 days #90 tabs 02/23/25 tablet,extended release 24 hr rivaroxaban 20 mg tablet (Xarelto) 20 mg PO DAILY 90 days #90 tabs 02/23/25 baclofen 5 mg tablet 5 mg PO BID PRN muscle spasm #60 03/16/25 tabs amlodipine 10 mg tablet 10 mg PO DAILY PRN bp 90 days #90 05/13/25 tabs sulfamethoxazole 800 1 tab PO Q12H 7 days #14 tabs 05/26/25 mg-trimethoprim 160 mg tablet (Bactrim DS) enoxaparin 80 mg/0.8 mL 80 mg (0.8 mL) SUBCUT DIRECTED 05/27/25 subcutaneous syringe (Lovenox) #4.8 mL ondansetron 4 mg disintegrating 4 mg PO Q6H PRN nausea and 06/04/25 tablet vomiting #14 tabs blood-glucose sensor (Dexcom G7 #3 ea 06/28/25 Sensor device) Allergies Allergy/AdvReac Type Severity Reaction Status Date / Time No Known Allergies Allergy Verified 05/26/25 10:15 Review of Systems GI: Reports: nausea and vomiting PFSH ED PFSH: Medical History (Updated 07/04/25 @ 02:48 by Izaiah Knutson MD) CKD (chronic kidney disease) Pancreatic mass A-fib Hyperlipidemia Thrombocytopenia Hyperglycemia Vomiting Diabetic neuropathy Esophageal thickening Elevated troponin Anemia Acute kidney injury Menopausal symptoms Relates she takes antidepressant for this DJD (degenerative joint disease) Hypothyroidism Pituitary tumor s/p post surgery at [facility] 2019? Hypertension DM type 2 (diabetes mellitus, type 2) Surgical History History of hysterectomy History of H/O pituitary neoplasm Status post resection Family History Other CAD (coronary artery disease) Social History Smoking and tobacco/nicotine status: never used tobacco/nicotine Second hand smoke exposure: No Alcohol intake: never Substance/Drug Use: never Female Reproductive History: Spontaneous abortions: No Physical Exam Const: COMMON NORMALS: patient oriented x3 HENMT: COMMON NORMALS: normocephalic and atraumatic HEAD & SCALP: normocephalic and atraumatic Eye: COMMON NORMALS: Equal, round and reactive pupils present and EOMs intact bilaterally PUPIL: Yes Equal, round and reactive pupils present Neck/C-Spine: COMMON NORMALS: full ROM and supple Chest: COMMONS NORMALS: normal inspection of the chest and normal palpation of entire chest wall Resp: COMMON NORMALS: normal respiratory effort, No retractions, No use of accessory muscles and clear to auscultation bilaterally AUSCULTATION: clear to auscultation bilaterally Cardio: COMMON NORMALS: regular rate, regular rhythm and No murmurs present (Cardio) RATE: regular rate RHYTHM: regular rhythm GI: COMMON NORMALS: Normal to inspection, nondistended, normoactive bowel sounds present, Soft to palpation, non-tender and no masses PALPATION: Yes Soft to palpation Extremity: COMMON NORMALS: normal to inspection and full ROM Neuro: COMMON NORMALS: patient oriented x3, moves all extremities and no focal motor deficits Psych: COMMON NORMALS: mental status grossly normal, Normal thought process present and cooperative THOUGHT PROCESS: Normal thought process present Skin: COMMON NORMALS: no rashes or lesions noted and no wounds GENERAL SKIN EXAM: no rashes or lesions noted Course Vital Signs: Vital signs: Vital Signs Temperature 98.1 F 07/03/25 22:39 Pulse Rate 93 07/04/25 00:29 Respiratory Rate 16 07/04/25 00:29 Blood Pressure 121/68 07/04/25 00:29 Pulse Oximetry 91 07/04/25 00:29 Oxygen Delivery Me thod Room Air 07/04/25 00:29 MDM - Nausea/Vomiting/Diarrhea Medical Decision Making Patient presents for nausea vomiting going on for 3 days. Differential includes gastritis small bowel obstruction. Patient felt much improved after Zofran she been able to tolerate p.o. with no signs of bowel obstruction. Patient does have acute kidney injury along with hyperkalemia likely from dehydration from her vomiting. Did give her 2 L of fluids still has a mild hyperkalemia and acute kidney injury. Spoke to hospitalist will admit at this time did give her 1 dose insulin along with calcium gluconate. She has had no longer vomiting here we will admit for observation I did go over her labs and EKG with her EKG showed normal sinus rhythm heart rate [address] elevation QRS 86 QTc 397 Medical Records I reviewed the patient's medical records. Lab Data I reviewed the patient's lab results. 07/03/25 22:52 07/04/25 01:49 Laboratory Results WBC 8.90 10^3/uL (3.29-11.43) 07/03/25 22:52 RBC 3.85 10^6/uL (3.85-5.65) 07/03/25 22:52 Hgb 9.70 g/dL (11.27-16.99) L 07/03/25 22:52 Hct 33.6 % (36-47) L 07/03/25 22:52 MCV 87.3 fl (85-98) 07/03/25 22:52 MCH 25.2 pg (27-33) L 07/03/25 22:52 MCHC 28.9 g/dL (30-55) L 07/03/25 22:52 RDW 14.6 % (12.1-15.1) 07/03/25 22:52 Plt Count 312 10^3/cmm (157-399) 07/03/25 22:52 MPV 9.3 fL (7.4-10.4) 07/03/25 22:52 Neut % (Auto) 84.0 % 07/03/25 22:52 Lymph % (Auto) 8.1 % 07/03/25 22:52 King % (Auto) 6.0 % 07/03/25:52 Eos % (Auto) 0.0 % 07/03/25 22:52 Baso % (Auto) 0.6 % 07/03/25 22:52 Neut # (Auto) 7.48 10^3/uL (1.8-7.7) 07/03/25 22:52 Lymph # (Auto) 0.7 10^3/uL (0.8-4.8) L 07/03/25 22:52 King # (Auto) 0.5 10^3/uL (0.2-0.9) 07/03/25 22:52 Eos # (Auto) 0.0 10^3/uL (0.0-0.8) 07/03/25 22:52 Baso # (Auto) 0.1 10^3/uL (0.0-0.1) 07/03/25 22:52 Nucleated RBC % (auto) 0.6 % 07/03/25 22:52 Nucleated RBCs # 0.1 /100WBC 07/03/25 22:52 Sodium 135 mmol/L (136-145) L 07/04/25 01:49 Potassium 5.8 mmol/L (3.5-5.1) H 07/04/25 01:49 Chloride 102 mmol/L (98-107) 07/04/25 01:49 Carbon Dioxide 16 mmol/L (22-29) L 07/04/25 01:49 Anion Gap 22.8 (5-19) H 07/04/25 01:49 BUN 33 mg/dL (8-23) H 07/04/25 01:49 Creatinine 2.0 mg/dL (0.5-0.9) H 07/04/25 01:49 GFR Calculation Not Reportable 07/04/25 01:49 Glucose 316 mg/dL (65-115) H 07/04/25 01:49 POC Glucose 306 mg/dL (70-110) H 07/04/25 02:50 Calculated Osmolality 299 mOsm/kg (285-295) H 07/04/25 01:49 Calcium 8.3 mg/dL (8.5-10.5) L 07/04/25 01:49 Total Bilirubin 0.8 mg/dL (0.15-1.2) 07/03/25 22:52 AST 60 U/L (0-32) H 07/03/25 22:52 ALT 19 U/L (0-33) 07/03/25 22:52 Alkaline Phosphatase 108 U/L (35-105) H 07/03/25 22:52 Total Protein 7.8 g/dL (6.6-8.7) 07/03/25 22:52 Albumin 3.4 g/dL (3.5-5.2) L 07/03/25 22:52 Globulin 4.4 g/dL (1.3-4.6) 07/03/25 22:52 Lipase 13 U/L (13-60) 07/03/25 22:52 No radiology studies performed this visit EKG Data EKG 1: I personally reviewed and interpreted this EKG as follows: EKG interpretation date: 07/04/25 EKG interpretation time: 02:59 Interpretation: nsr hr [address] elevation qrs 86 qtc 397 Discharge Plan Discharge Patient Disposition: Admitted As Inpatient Clinical Impression: Vomiting, Acute hyperkalemia, OLIMPIA (acute kidney injury), Dehydration Condition: Stable Coding Level of Care Code ED Scaffolder for Chintan Persaud
[2025-07-04] MEDS: ondansetron 2 mg/ML SDV 2 mL 4 MG IVP (00:15)
[2025-07-04 02:21] LABS: Anion Gap 22.8 (5-19); Blood Urea Nitrogen 33 mg/dL (8-23); Calcium 8.3 mg/dL (8.5-10.5); Carbon Dioxide 16 mmol/L (22-29); Chloride 102 mmol/L (98-107); Glucose 316 mg/dL (65-115); Osmolality Calculated 299 mOsm/kg (285-295); Potassium 5.8 mmol/L (3.5-5.1); Sodium 135 mmol/L (136-145)
[2025-07-04 02:24] LABS: Creatinine Clr Calc Pharmacy 27.9442
--- NOTE | 2025-07-04 02:45 | P.HP_ITS ---
Providers/Chief Complaint 2 Admitting Physician: Izaiah Knutson MD Primary Care Provider: Marcia Flannery MD Chief Complaint: v/ cant keep anything down History of Present Illness As per the previous notes and the patient: Ambika Nichols is a 70 year old female past medical history of atrial fibrillation on Xarelto, hyperlipidemia, diabetes, history of pituitary tumor and strokelike symptoms Presented with vomiting and nausea that has been ongoing for the last 2 to 3 days. 1 month ago the patient had a similar episode and she thought could be food poisoning. Currently she is feeling the same symptoms. Did not report any diarrhea, any severe abdominal pain, any dizziness, any joint pain skin rash. Patient did not report any chest pain, chest pressure, shortness of breath, fever or chills. Did not report any recent lower leg swelling. The patient is compliant with her medication. Did not report any outside food. Patient presented to ER and found to have hyperkalemia and OLIMPIA on CKD evaluation of dehydration. Potassium was 6 and EKG did not showed hyperacute T wave. Patient received acute hyperkalemia management with calcium gluconate with fluid resuscitation. Review of Systems 2 General: Reports: 10 or more systems reviewed and unremarkable except in HPI and below Medications/Allergies Home Medications ?Medication ?Instructions ?Recorded ?Confirmed ?Last Taken ?Type blood-glucose transmitter (Dexcom #1 ea 10/19/2406/04 Unknown Rx G6 Transmitter device) blood-glucose,replanting machine crew,cont #1 ea 10/19/24 06/04/25 Un known Rx (Dexcom G6 Hide Inspector) blood sugar diagnostic (Blood #50 ea 12/09/24 06/04/25 Unknown Rx Glucose Test strips) blood-glucose meter #1 ea 12/09/24 06/04/25 Unkn own Rx lancets 32 gauge (E-Z Ject Lancets) #100 ea 12/09/24 0 06/04/25 Unknown Rx magnesium glycinate 118 mg PO DAILY 02/16/2506/02/25 History empagliflozin 25 mg tablet 25 mg PO DAILY 90 days #90 tabs 02/23/25 06/04/25 06/02/25 Rx (Jardiance) hydrochlorothiazide 12.5 mg tablet 12.5 mg PO QAM 90 d ays #90 tabs 02/23/25 06/04/25 06/02/25 Rx levothyroxine 88 mcg tablet 88 mcg PO DAILY 90 days #9 0 tabs 02/23/25 06/04/25 06/02/25 Rx lisinopril 40 mg tablet 40 mg PO DAILY 90 days #90 t abs 02/23/25 06/04/25 06/02/25 Rx metoprolol succinate 50 mg 50 mg PO DAILY 90 days #90 tabs 02/23/25 06/04/25 06/02/25 Rx tablet,extended release 24 hr rivaroxaban 20 mg tablet (Xarelto) 20 mg PO DAILY 90 d ays #90 tabs 02/23/25 06/04/25 05/31/25 Rx baclofen 5 mg tablet 5 mg PO BID PRN muscle spasm #60 03/16/25 06/04/25 06/02/25 Rx tabs amlodipine 10 mg tablet 10 mg PO DAILY PRN bp 90 day s #90 05/13/25 06/04/25 Unknown Rx tabs aspirin 81 mg tablet 81 mg PO DAILY 05/24/2505/1705/31/25 History sulfamethoxazole 800 1 tab PO Q12H 7 days #14 tab s 05/26/25 06/04/25 06/02/25 Rx mg-trimethoprim 160 mg tablet (Bactrim DS) enoxaparin 80 mg/0.8 mL 80 mg (0.8 mL) SUBCUT DIR ECTED 05/27/25 06/04/25 Unknown Rx subcutaneous syringe (Lovenox) #4.8 mL desvenlafaxine succinate 50 mg 50 mg PO DAILY 06/04/25 06/04/25 06/02/25 History tablet,extended release 24 hr ondansetron 4 mg disintegrating 4 mg PO Q6H PRN nausea and 06/04/25 Unknown Rx tablet vomiting #14 tabs blood-glucose sensor (Dexcom G7 #3 ea 06/28/25 Unknow n Rx Sensor device) Allergies Allergy/AdvReac Type Severity Reaction Status Date / Time No Known Allergies Allergy Verified 05/26/25 10:15 PFSH Acute 2 PFSH: Medical History (Updated 07/04/25 @ 02:48 by Izaiah Knutson MD) CKD (chronic kidney disease) Pancreatic mass A-fib Hyperlipidemia Thrombocytopenia Hyperglycemia Vomiting Diabetic neuropathy Esophageal thickening Elevated troponin Anemia Acute kidney injury Menopausal symptoms Relates she takes antidepressant for this DJD (degenerative joint disease) Hypothyroidism Pituitary tumor s/p post surgery at [facility] 2019? Hypertension DM type 2 (diabetes mellitus, type 2) Surgical History History of hysterectomy History of H/O pituitary neoplasm Status post resection Family History Other CAD (coronary artery disease) Social History Smoking and tobacco/nicotine status: never used tobacco/nicotine Second hand smoke exposure: No Alcohol intake: never Substance/Drug Use: never Female Reproductive History: Spontaneous abortions: No Vitals/I&O/Wt Last Vital Signs Temp 98.1 F 07/03/25 22:39 Pulse 93 07/04/25 00:29 Resp 16 07/04/25 00:29 BP 121/68 07/04/25 00:29 Pulse Ox 91 07/04/25 00:29 O2 Del Method Room Air 07/04/25 00:29 07/03/25 07/03/25 07/04/25 14:59 22:59 06:59 Intake Total 0 / 0 Balance 0 / 0 Weight last 48 hrs Weight 81.647 kg Physical Exam 2 Narrative: General: Alert and oriented, lying comfortably without any distress with dry oral mucosa. Pallor positive HEENT: Normocephalic, atraumatic, grossly unremarkable exam Cardio: normal rate rhythm, normal S1-S2 without any murmurs, rubs, or gallops and JVD normal Respiratory: normal vascular breathing on auscultation without any wheezes, stridor, rhonchi GI: Abdomen soft, nontender, nondistended, normoactive bowel sounds present all 4 quadrants, Neuro: intact cranial nerves motor and sensory and cerebellar/coordination function without any focal neurological deficit Behavior: Appropriate and cooperative Extremities: Adequate palpable pulses, mild trace edema. Data 07/03/25 22:52 07/04/25 01:49 A&P Assessment and plan 1. OLIMPIA (acute kidney injury): Patient baseline around 1.8 Adequate fluid resuscitation continue Zofran for nausea and vomiting Avoid nephrotoxic medication Follow intake and output monitoring Monitor renal functions and electrolytes with correction accordingly 2. Dehydration: Adequate fluid resuscitation 3. Acute hyperkalemia: Oral Kayexalate and laxatives to remove potassium through bowel motion Calcium gluconate considering patient potassium at presentation was 6 with OLIMPIA and CKD Avoid medication that can trigger hyperkalemia, hold lisinopril, Home medication also include Bactrim? And the patient is not aware, if it is active then to discontinue. 4. A-fib: Continue on rivaroxaban 20 mg daily Metoprolol 50 mg daily Patient medication to be reconciled before initiation 5. Hyperlipidemia: Stable currently not on statin and lisinopril not on medication Review and reconcile medications according and to resume the medication according to patient comorbidities 6. GERD (gastroesophageal reflux disease): PPI daily 7. DM type 2 (diabetes mellitus, type 2): Insulin sliding scale as inpatient and to adjust later 8. Hypertension: Patient currently on antihypertensive medication including amlodipine 10 mg, hydrochlorothiazide 12.5 mg, lisinopril 40 mg daily. To hold at the moment since her blood pressure is normal Patient need medication reconciliation before resuming home medication 9. Hypothyroidism: At home patient takes levothyroxine 88 mcg daily, to resume after reconciliation 10. Lumbar radiculopathy: Stable, adequate analgesia 11. Degenerative lumbar disc: Stable, adequate analgesia PDMP PDMP Reviewed: Not Reviewed Attestations 2 Medical Necessity Statement*: Ambika Nichols's hospital stay will be less than 2 midnights for management of dehydration, OLIMPIA on CKD and acute hyperkalemia Time Spent in Patient Care: 16 - 35 minutes (>than 50% of time sp ent in counselling and/or direct pt care on unit) . Other Attestations: Patient condition has been discussed at length with the patient/family, I have independently reviewed the chart labs imaging/diagnostics/EKG. the goals of care and code status with the patient/family/NOK/legal new accounts banking representative, and documented accordingly. The patient/family has been informed about the current condition and further plan of care. Agreed with the plan of care and understood without any language barrier. Every effort was made to ensure accuracy of applied behavior science specialist. Any obvious errors or omissions should be clarified with the author of the document. Coding Level of Care Code Acute Code for g Fwd Diagnoses OLIMPIA (acute kidney injury) N17.9 Dehydration E86.0 Acute hyperkalemia E87.5 A-fib I48.91 Hyperlipidemia E78.5 GERD (gastroesophageal reflux disease) K21.9 DM type 2 (diabetes mellitus, type 2) E11.9 Hypertension I10 Hypothyroidism E03.9 Lumbar radiculopathy M54.16 Degenerative lumbar disc M51.369
--- NOTE | 2025-07-04 02:59 | ECG_ITS ---
[facility] Date: 2025-07-04 Pat Name: Ambika Nichols Department: Room: Gender: Female Control Chemist: : [id number] Requested By: Josefina Fernandez Order Number: [id number] Dale MD: Nataliya Shaw M.D. Measurements Intervals [place] Rate: 98 P: -20 AR: 191 QRS: 60 QRSD: 86 T: 98 QT: 342 QTc: 437 Interpretive Statements Possible SINUS RHYTHM NONSPECIFIC ST & T-WAVE ABNORMALITY Compared to ECG 02/15/2025 23:03:16 T-wave abnormality now present Ectopic atrial rhythm no longer present Left ventricular hypertrophy no longer present ST (T wave) deviation no longer present Baseline artifacts, need to repeat Electronically Signed On 07-06-2025 19:31:13 CDT by Nataliya Shaw M.D. [email or web address]
[2025-07-04] MEDS: calcium gluconate 0.1 gm/mL 10% SDV 10mL 1 GM IVP (03:17)
[2025-07-04] MEDS: insulin regular-human 100 units/1 mL 10 UNIT IVP (03:17)
[2025-07-04] MEDS: alum-mag-hydroxide-sime 30 mL UDC 15 ML PO ×4 (04:23→20:20)
--- NOTE | 2025-07-04 07:18 | PC.NURSE ---
PATIENT UP TO COMMODE. PATIENT GIVEN FRESH WIPES AND COMMODE EMPTIED AFTER USE.
[2025-07-04 08:21] LABS: Hematocrit 27.9 % (36-47); Hemoglobin 8.10 g/dL (11.27-16.99); Mean Corpuscular HGB Conc 29.0 g/dL (30-55); Mean Corpuscular Hemoglobin 25.4 pg (27-33); Mean Corpuscular Volume 87.5 fl (85-98); Nucleated Red Blood Cells % 0.4 %; Platelet Count 205 10^3/cmm (157-399); Red Blood Count 3.19 10^6/uL (3.85-5.65); White Blood Count 7.69 10^3/uL (3.29-11.43)
--- OUTSIDE RECORDS SUMMARY | 2025-07-04 08:48 | XMS_ITS | Encounter Summary ---
Author Organization [facility] Address [address] [place] [address] Care Team Providers Care Quality Technician Name Role Phone Raymond Morrissey Kaylan SARMIENTO Primary Care Provider [phone] Encounter Details Date Type Department Care Team (Late st Contact Info) Description 12/01/2014 Ancillary Orders [facility] [address] [facility] [address] [place] [id number] Loreto Abdi MD [address] [place] [address] Other screening mammogram (Primary Dx) Social History Tobacco Use Types Packs/Day Years Used Date Smoking Tobacco: Never Smokeless Tobacco: Never Alcohol Use Standard Drinks/Week Comments No 0 (1 standard drink = 0.6 oz pur e alcohol) Comments No Sex and Gender Information Value Date Recorded Sex Assigned at Not on file Legal Sex Female 6:19 AM CLINICAL REHABILITATION AIDE Gender Identity Not on file Sexual Orientation [...] Primary documented in this encounter Care Teams Quality Technician Relationship Specialty Start Date End Date Raymond Morrissey DO PCP - General Family Practice 04/11/20 11/16/20 documented as of this encounter
--- OUTSIDE RECORDS SUMMARY | 2025-07-04 08:48 | XMS_ITS | Encounter Summary ---
Author Organization [facility] Address [address] [place] [address] Care Team Providers Care Real Estate Associate Attorney Name Role Phone Yuni Raymond Kaylan SARMIENTO Primary Care Provider [phone] Reason for Referral * Radiology Services (Routine) [...] Expiration Date Visits Re quested Visits Authorized [id number] Closed 12/03/2018 01/03/2020 1 1 Encounter Details Date Type Department Care Team (Latest Contact Info) Description 12/03/2018 Ancillary Orders [facility] Pre-Registration [place] CALL TO MAKE APPOINTMENT ONLY [address] [place] [address] Brielle Holcomb MD [address] [place] [id number] Visit for screening mammogram Social History Tobacco Use Types Packs/Day Years Used Date Smoking Tobacco: Never Smokeless Tobacco: Never Alcohol Use Standard Drinks/Week Comments No 0 (1 standard drink = 0.6 oz pur e alcohol) Comments No Sex and Gender Information Value Date Recorded Sex Assigned at Not on file Legal Sex Female 6:19 AM WINDOW COVERING SALES CONSULTANT Gender Identity Not on file Sexual Orientation [...] mammogram documented in this encounter Care Teams Real Estate Associate Attorney Relationship Specialty Start Date End Date Raymond Morrissey DO PCP - General Family Practice 04/11/20 11/16/20 documented as of this encounter
--- OUTSIDE RECORDS SUMMARY | 2025-07-04 08:48 | XMS_ITS | Clinical Summary ---
[facility] Address [address] [place] [address] Care Team Providers Care Electric Welder Name Role Phone Unavailable Primary Care Provider [...] (PRISTIQ) 50 mg Extended Release 24 hour tabletIndications:[place] pause Take 1 Tablet (50 mg) by [...] kidney disease) stage 3, GFR 30-59 ml/min ([facility]) Take 1 Tablet (40 mg) by mouth [...] 1 020 Active traMADoL (ULTRAM) 50 mg tabletIndications:Airport Ramp Agent ravinder bilateral low back pain without sciatica Take 2 Tablets (100 mg) by mouth 2 times daily as needed for Pain. 60 Tablet 1 020 Active levothyroxine 100 mcg tabletIndications:Hypo thyroidism, unspecified type,Type 2 diabetes mellitus with stage 3 chronic kidney disease, with long-term current use of insulin,Essential hypertension,Hyperlipi demia, unspecified hyperlipidemia type,Hyperparathyroidi sm Take 1 Tablet (100 mcg) by mouth daily medical staff manager. 90 Tablet 020 Active tiZANidine (ZANAFLEX) 4 [...] adenoma 09/22/2014 Overview (09/22/2014): resection done at [facility] in 02/2014. Hypothyroidism, unspecified 08/19/2014 Overview [...] on file Legal Sex Female 6:19 AM CHILLER OPERATOR Gender Identity Not on file Sexual Orientation Not on file Occupation Industry Job Start Date Job End Date Not on file Not on file Not on file Not on file Last Filed Vital Signs Vital Sign Reading Time Taken Comments Blood Pressure 138/70 04/08/2020 8:41 AM CDT Pulse 80 04/08/2020 8:41 AM CDT Temperature 36.3 C (97.4 F) 10/14/2019 1:35 PM CHILLER OPERATOR Respiratory Rate 18 11/18/2019 11:05 AM CHILLER OPERATOR Oxygen Saturation 96% 04/08/2020 8:41 AM [...] series) 02/24/2028 Medical Devices Implanted Type Area Pellet Mill Operator Device Identifier Shelf Expiration Date Model / Serial / Lot Lens Io Tecyessenia 1pc 21.5 [id number] - [id number] Implanted:Qty: 1 on 04/01/2017 by Jim Akers DO at [facility] Right: Eye [employer] 01/18/2021 [id number] / [id number] / Lens Io Tecnis 1pc 21.5 [id number] - [id number] Implanted:Qty: 1 on 04/15/2017 by Jim Akers, DO at [facility] Left: Eye [employer] 01/31/2021 [id number] / [id number] / Procedures Procedure Name Priority Date/Time Associated Diagnosis Comments MICROALBUMIN/CREATIN INE RATIO, RANDOM UR Routine 04/08/2020 10:05 AM CDT Essential hypertension CKD (chronic kidney disease) stage 3, GFR 30-59 ml/min ([facility]) Type 2 diabetes mellitus with hyperglycemia, without long-term current use of insulin ([facility]) LIPID PANEL Routine 04/08/2020 10:05 AM CDT Hypercholesteremia Screening, ischemic heart disease HEMOGLOBIN A1C Routine 04/08/2020 10:05 AM CDT Type 2 diabetes mellitus with hyperglycemia, without long-term current use of insulin ([facility]) COLONOSCOPY REPORT 11/18/2019 11 :00 AM CHILLER OPERATOR COLON CANCER SCREEN, STOOL DNA Routine 10/21/2019 11:00 PM CHILLER OPERATOR Screening for colon cancer MAMMO 3D RENETTA SCREEN BILAT W OR WO CAD Routine 01/05/2019 1:18 PM CDT Visit for screening mammogram HM DIABETES EYE EXAM Routine 11/05/2018 XR DEXA BONE DENSITY AXIAL 1 OR MORE SITES Routine 08/04/2018 10:12 AM CHILLER OPERATOR HPTH (hyperparathyroidis m) OCCULT BLOOD IMMUNOASSAY, COLORECTAL SCREEN Routine 04/30/2016 5:13 PM CDT Visit for screening mammogram from Last 3 Months or Most Recently Relevant to Health Maintenance Results * (ABNORMAL) MICROALBUMIN/CREATININE RATIO, RANDOM UR (04/08/2020 10:05 AM CDT) MICROALBUMIN, URINE 11.7 No Reference Range mg/dL 04/08/2020 4:07 PM CDT [facility] CREATININE, URINE 46.1 29.0 - 226.0 mg/dL 04/08/2020 4:07 PM CDT [facility] Comment:Reference Range vari es with fluid intake and diet. MICROALBUMIN/ CREAT RATIO, UR 253.8(H) <25.0 mg/g 04/08/2020 4:07 PM CDT [facility] Urine URINE SPECIMEN OBTAINED BY CLEAN CATCH PROCEDURE / Unknown Collection / Unknown 04/08/2020 10:05 AM CDT 04/08/2020 2:[address] [facility] - 04/08/2020 4:07 PM CDT Condition Microalbumin/Creat ratio Normal Males <17 Normal Females <25 Microalbuminuria Males 17-299 Microalbuminuria Females 25-299 Overt proteinuria >=300 Raymond Morrissey DO URINE ORDERABLES Final Result [facility]# [id number] [address] [place] [address] * (ABNORMAL) HEMOGLOBIN A1C (04/08/2020 10:05 AM CDT) HEMOGLOBIN A1C 10.8(H) See Comment % 04/08/2020 3:02 PM CDT [facility] EST. AVG GLUCOSE, A1C 263 mg/dL 04/08/2020 3:02 PM CDT [facility] Blood Venipuncture / Unknown 04/08/2020 10:05 AM CDT 04/08/2020 2:[address] [facility] - 04/08/2020 3:02 PM CDT HGB A1C INTERPRETATION NORMAL: <5.7% PRE-DIABETES: 5.7 - 6.4% DIABETES: 6.5% OR GREATER Falsely low A1C measurements can occur when: 1. Anemia and/or hemolytic anemia is present. 2. Hemoglobin variants present. 3. Renal failure. 4. Transfusion of blood product in the last 120 days. We recommend ordering a fructosamine test([id number]) to more accurately assess glycemic status if any of the above conditions are present. Raymond Morrissey DO CHEMISTRY ORDERABLES Final Resul t [facility] CLIA# [id number] [facility] [place] [address] * (ABNORMAL) LIPID PANEL (04/08/2020 10:05 AM CDT) CHOLESTEROL 174 <200 mg/dL 04/08/2020 3:23 PM CDT [facility] TRIGLYCERIDE 382(H) <150 mg/dL 04/08/2020 3:23 PM CDT [facility] HDL 37(L) 40 - 59 mg/dL 04/08/2020 3:23 PM CDT [facility] LDL CALCULATED 61 <100 mg/dL 04/08/2020 3:23 PM CDT [facility] NON-HDL CHOLESTEROL 137(H) <130 mg/dL 04/08/2020 3:23 PM CDT [facility] Blood Venipuncture / Unknown 04/08/2020 10:05 AM CDT 04/08/2020 2:[address] [facility] - 04/08/2020 [...] Morrissey DO CHEMISTRY ORDERABLES Final Resul t [facility] CLIA# [id number] [address] [place] [address] * COLONOSCOPY REPORT (11/18/2019 11:00 AM CHILLER OPERATOR) Narrative Procedure Note Darrell Simms MD - 11/18/2019 10:59 AM CST [facility] GI Patient Name: Ambika Nichols Procedure Date: [...] Scope Out: 10:56:31 AM [address] [place], [place] Darrell Simms MD GI PROCEDURE ORDERABLES Final Result * (ABNORMAL) COLON CANCER SCREEN, STOOL DNA (10/21/2019 11:00 PM CHILLER OPERATOR) COLOGUARD RESULT Positive (A) Not Applicable [facility] Comment: It is recommended that a [...] Erika Sheets al, N Engl J Med 2014;370(14):2271-2150.) Test Type: Composite algorithmic analysis of stool [...] can be accessed at the following location: [email or web address]. Additional description of the Cologuard test process, warnings and precautions can be found at [email or web address]. Rx Only. Stool STOOL SPECIMEN / Unknown 10/21/2019 11:00 PM CHILLER OPERATOR 10/23/2019 4:30 PM CHILLER OPERATOR Brielle Holcomb MD BODY FLUIDS AND STOOLS Final Result [facility] CLIA # [id number] [address], [address] [place] [address] * MAMMO SCRN BILAT 3D RENETTA W [...] 1 OR MORE SITES (08/04/2018 10:12 AM CHILLER OPERATOR) Anatomical Region Laterality Modality Nuclear Medicine 08/04/2018 10:1 2 AM CHILLER OPERATOR Impressions 08/04/2018 4:55 PM CHILLER OPERATOR IMPRESSION: Abnormal examination Low bone density/osteopenia [...] clinical management available online at [email or web address]/. Enter Siemens for Select DXA and the Femoral Neck BMD value. Narrative 08/04/2018 4:55 PM CHILLER OPERATOR DEXA Evaluation of the Lumbar Spine, [...] clinical management available online at [email or web address] Enter Siemens for Select DXA and the Femoral Neck BMD value. [facility] ORDERABLES Final Result * OCCULT BLOOD IMMUNOASSAY, COLORECTAL SCREEN (04/30/2016 5:13 PM CDT) OCCULT BLOOD, STOOL Negative Negative 05/01/2016 9:52 AM CDT [facility] Stool STOOL SPECIMEN / Unknown Collection / Unknown 04/30/2016 5:13 PM CDT 04/30/2016 5:13 PM CDT us Loreto Abdi MD BODY FLUIDS AND STOOLS Final Re jonelle [facility]# [id number] [address] [place] [address] from Last 3 Months or Most Recently Relevant to Health Maintenance Advance Directives For more information, please contact: [phone] * Full Code (Latest Code Status on File) Date Activated Date Inactivated Comments 11/18/2019 10:15 AM 11/18/2019 1:45 PM * Full Code Date Activated Date Inactivated Comments 04/15/2017 7:13 AM 04/15/2017 11:07 AM * Full Code Date Activated Date Inactivated Comments 04/01/2017 6:56 AM 04/01/2017 10:16 AM
--- OUTSIDE RECORDS SUMMARY | 2025-07-04 08:48 | XMS_ITS | Encounter Summary ---
Author Organization [facility] Address [address] [place] [address] Care Team Providers Care Supervisor Research Kennel Name Role Phone Raymond Morrissey DO Primary Care Provider Encounter Details Date Type Department Care Team (Latest Contact Info) Description 07/15/2001 Outpatient Historical [facility] [address] [place] [address] Filiberto Ramirez MD [address] [place] [address] LOCAL SKIN INFECTION NOS (Primary Dx); COUGH; DIABETES UNCOMPL ADULT-TYPE II (CMS/HCC) Social History Tobacco Use Types Packs/Day Years Used Date Smoking Tobacco: Never Assessed Comments Unknown Sex and Gender Information Value Date Recorded Sex Assigned at Not on file Legal Sex Female 6:19 AM FILM SORTER Gender Identity Not on file Sexual Orientation Not on file documented as of this encounter Plan of Treatment Not on file documented as of this encounter Visit Diagnoses Diagnosis Unspecified local infection of skin and subcutaneous tissue- Primary Cough Type II or unspecified type diabetes mellitus without mention of complication, not stated as uncontrolled documented in this encounter Care Teams Supervisor Research Kennel Relationship Specialty Start Date End Date Raymond Morrissey DO PCP - General Family Practice 04/11/20 11/16/20 documented as of this encounter
--- OUTSIDE RECORDS SUMMARY | 2025-07-04 08:48 | XMS_ITS | Encounter Summary ---
Author Organization [facility] Address [address] [place] [address] Care Team Providers Care Lens Molding Equipment Operator Name Role Phone Raymond Morrissey DO Primary Care Provider Encounter Details Date Type Department Care Team (Latest Contact Info) Description 12/18/2000 Outpatient Historical [facility] [place] [address] [place] [phone] Kian Bloom MD NO ADDRESS ON FILE Other screening mammogram (Primary Dx) Social History Tobacco Use Types Packs/Day Years Used Date Smoking Tobacco: Never Assessed Comments Unknown Sex and Gender Information Value Date Recorded Sex Assigned at Not on file Legal Sex Female 6:19 AM EQUINE BREEDER Gender Identity Not on file Sexual Orientation Not on file documented as of this encounter Plan of Treatment Not on file documented as of this encounter Visit Diagnoses Diagnosis Other screening mammogram- Primary documented in this encounter Care Teams Lens Molding Equipment Operator Relationship Specialty Start Date End Date Raymond Morrissey DO PCP - General Family Practice 04/11/20 11/16/20 documented as of this encounter
--- OUTSIDE RECORDS SUMMARY | 2025-07-04 08:48 | XMS_ITS | Encounter Summary ---
Author Organization [facility] Address [address] [place] [address] Care Team Providers Care Solution Maker Name Role Phone Raymond Morrissey DO Primary Care Provider [phone] Encounter Details Date Type Department Care Team (Latest Contact Info) Description 04/17/2006 Outpatient Historical [facility] [place] [phone] Kartik Gonzalez MD NO ADDRESS ON FILE Adhesive Capsulit Shlder (Primary Dx) Social History Tobacco Use Types Packs/Day Years Used Date Smoking Tobacco: Never Assessed Comments Unknown Sex and Gender Information Value Date Recorded Sex Assigned at Not on file Legal Sex Female 6:19 AM SPORTS EQUIPMENT SUPERVISOR Gender Identity Not on file Sexual Orientation Not on file documented as of this encounter Plan of Treatment Not on file documented as of this encounter Visit Diagnoses Diagnosis Adhesive capsulit shlder- Primary Adhesive capsulitis of shoulder documented in this encounter Care Teams Solution Maker Relationship Specialty Start Date End Date Raymond Morrissey DO PCP - General Family Practice 04/11/20 11/16/20 documented as of this encounter
--- OUTSIDE RECORDS SUMMARY | 2025-07-04 08:48 | XMS_ITS | Clinical Summary ---
Author Organization [place] Address [address] [facility] Attn: [place] [address] Care Team Providers Care Director Skills Name Role Phone Marcia Flannery MD Primary Care Provider [phone] Allergies No known active allergies Medications traMADoL (ULTRAM) 50 mg tabletIndications:Cnp ravinder bilateral low back pain without sciatica [...] (PRISTIQ) 50 mg Extended Release 24 hour tabletIndications:[place] pause Take 1 Tablet (50 mg) by [...] 1 Tablet (100 mcg) by mouth daily gas reverser. 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 Hypothyroidism, unspecified 08/19/2014 Overview [...] Type Department Care Team Description 07/02/2025 Telephone [facility] [address] [place] [address] Taylor Fletcher DO Provider Call 06/22/2025 External Device Data STL ABSTRACTION Provider, Abstract 06/22/2025 External Device Data [facility] ABSTRACTION Provider, Abstract 06/22/2025 External Device Data [facility] ABSTRACTION Provider, Abstract 06/18/2025 6:25 PM CDT - 06/24/2025 4:52 PM CDT Hospital Encounter [facility] Medical Telemetry [address] [place] [phone] Citlali Hernandez DO Abbas, Muhammad Khalid, MD Chilukuri, Ramya Sree, MD Tyler, Cori Stahl MD Generalized weakness Discharge Disposition: Discharged/transferr ed to a halfway facility (SNF) with Medicare certificatio 06/18/2025 - 06/18/2025 11:59 PM CDT Hospital Encounter [facility] Emergency Medical Services [facility] [address] [place] [address] Ambulance, [facility] Discharge Disposition: Short term general hospital [...] worry about transportation for future doctor visits, brain picker medication, etc.? No 2024 Housing Stability [...] on file Legal Sex Female 2:55 AM MIS SPECIALIST Gender Identity Not on file Sexual [...] 02/02/2026 2:30 PM CDT Office Visit [facility] Neurosurgery [address] [place] [phone] Boo Rubin MD [address] [place] [address] Health Maintenance Due Date Last [...] Screening 11/17/2026 Medical Devices Implanted Type Area Weather Forcaster Device Identifier Shelf Expiration Date Model / Serial / Lot Lens Io Tecnis 1pc 21.5 [id number] - [id number] Implanted:Qty: 1 on 04/01/2017 by Jim Akers DO Eye Right: Eye [employer] 01/18/2021 [id number] / [id number] / Lens Io Tecnis 1pc 21.5 [id number] - [id number] Implanted:Qty: 1 on 04/15/2017 by Jim Akers DO Eye Left: Eye [employer] 01/31/2021 [id number] / [id number] / Procedures Procedure Name Priority Date/Time Associated [...] CDT COLONOSCOPY REPORT 11/18/2019 10 :59 AM MIS SPECIALIST COLON CANCER SCREEN, STOOL DNA Routine 10/21/2019 11:00 PM MIS SPECIALIST MAMMO 3D RENETTA SCREEN BILAT W OR WO CAD Routine 01/05/2019 1:18 PM CDT Visit for screening mammogram HM DIABETES EYE EXAM 11/05/2018 12:00 AM MIS SPECIALIST XR DEXA BONE DENSITY AXIAL 1 OR MORE SITES Routine 08/04/2018 10:12 AM MIS SPECIALIST HPTH (hyperparathyroi dism) OCCULT BLOOD IMMUNOASSAY, COLORECTAL SCREEN Routine 04/30/2016 5:13 PM CDT from Last 3 Months or Most Recently Relevant to Health Maintenance Results * TELEMETRY REPORT (06/25/2025 2:05 PM CDT) us Provider Scanning ECG ORDERABLES Final Result * (ABNORMAL) POC GLUCOSE (06/24/2025 12:04 PM CDT) Only the most recent of22 resultswithin the time period is included. [facility] GLUCOSE POC 257(H) 74 - 99 mg/dL 06/24/2025 12:04 PM CDT [facility] SPECIMEN SOURCE, GLUCOSE POC Capillary 06/24/2025 12:04 PM T [facility] Blood, whole 06/24/2025 12:0 4 PM CDT 06/24/2025 12:22 PM CDT Cori Scott MD POINT OF CARE TESTING Fi nal Result [facility] CLIA # [id number] [address] [place] [address] * (ABNORMAL) BASIC METABOLIC PANEL (06/24/2025 4:13 AM CDT) Only the most recent of7 resultswithin the time period is included. [facility] SODIUM 132(L) 136 - 145 mmol/L 06/24/2025 5:01 AM [facility] POTASSIUM 5.1 3.5 - 5.1 mmol/L 06/24/2025 5:01 AM [facility] CHLORIDE 107 98 - 107 mmol/L 06/24/2025 5:01 AM [facility] CO2 17(L) 22 - 29 mmol/L 06/24/2025 5:01 AM [facility] CALCIUM 7.9(L) 8.8 - 10.2 mg/dL 06/24/2025 5:01 AM [facility] BUN 40(H) 8 - 23 mg/dL 06/24/2025 5:01 AM [facility] CREATININE 1.71(H) 0.51 - 0.95 mg/dL 06/24/2025 5:01 AM [facility] Comment:The GFR result is no t clinically significant on patients <18 or >70 years of age. GLUCOSE 289(H) 74 - 99 mg/dL 06/24/2025 5:01 AM CDT [facility] GFR 31 mL/min/1. 73 sq meter 06/24/2025 5:01 AM CDT [facility] Comment:eGFR calculated with 2020 CKD-EPI equation. Vegetarian diet, extremely high or low muscle mass, and may affect results. Cystatin C with Glomerular Filtration Rate is a suitable alternative for these patients. ANION GAP 8(L) 9 - 20 mmol/L 06/24/2025 5:01 AM CDT [facility] Blood Venipuncture / Unknown 06/24/2025 4:13 AM CDT 06/24/2025 4:26 AM CDT Cori Scott MD CHEMISTRY ORDERABLES Fin al Result Performing Organization Address [facility] Phone Number [facility] CLIA # [id number] [address] [address] * VANCOMYCIN LEVEL RANDOM (06/23/2025 5:49 AM CDT) Only the most recent of3 resultswithin the time period is included. VANCOMYCIN, RANDOM 16.8 5.0 - 50.0 ug/mL 06/23/2025 6:55 AM CDT [facility] Blood Venipuncture / Unknown 06/23/2025 5:49 AM CDT 06/23/2025 6:22 AM CDT Narrative [facility] - 06/23/2025 6:55 AM CDT Vancomycin Therapeutic Ranges: Vancomycin Trough: 10 - 20 mcg/mL Vancomycin Peak: 25 - 50 mcg/mL Cori Scott MD CHEMISTRY ORDERABLES Fin al Result Performing Organization Address [facility] Co de Phone Number [facility] CLIA # [id number] [id number] [place] [address] * (ABNORMAL) CBC WITH DIFFERENTIAL (06/21/2025 1:55 AM CDT) Only the most recent of4 resultswithin the time period is included. [facility] WBC 7.5 4.8 - 10.8 K/uL 06/21/2025 2:06 AM [facility] RBC 3.14(L) 4.20 - 5.40 M/uL 06/21/2025 2:06 AM [facility] HEMOGLOBIN 8.3(L) 12.0 - 16.0 g/dL 06/21/2025 2:06 AM [facility] HEMATOCRIT 26.4(L) 36.0 - 46.0 % 06/21/2025 2:06 AM [facility] MCV 84.1 84.0 - 103.0 fL 06/21/2025 2:06 AM [facility] MCH 26.4(L) 27.0 - 34.0 pg 06/21/2025 2:06 AM [facility] MCHC 31.4 30.0 - 35.0 g/dL 06/21/2025 2:06 AM [facility] PLATELETS 156 140 - 440 K/uL 06/21/2025 2:06 AM [facility] MPV 9.1 8.9 - 12.8 fL 06/21/2025 2:06 AM [facility] RDW 14.1 11.0 - 14.5 % 06/21/2025 2:06 AM [facility] RDW-STDEV 43.6 37.0 - 54.0 fL 06/21/2025 2:06 AM [facility] NEUTROPHILS 66 42 - 75 % 06/21/2025 2:06 AM [facility] LYMPHOCYTES 18(L) 24 - 44 % 06/21/2025 2:06 AM [facility] MONOCYTES 12(H) 2 - 10 % 06/21/2025 2:06 AM [facility] EOSINOPHILS 3 0 - 7 % 06/21/2025 2:06 AM CDT [facility] BASOPHILS 0 0 - 1 % 06/21/2025 2:06 AM CDT [facility] IMMATURE GRANULOCYTES 1 0 - 2 % 06/21/2025 2:06 AM CDT [facility] NEUTROPHIL ABSOLUTE 4.94 2.00 - 8.00 K/uL 06/21/2025 2:06 AM CDT [facility] LYMPHOCYTE ABSOLUTE 1.35 1.20 - 4.00 K/uL 06/21/2025 2:06 AM CDT [facility] MONOCYTE ABSOLUTE 0.86(H) 0.10 - 0.60 K/uL 06/21/2025 2:06 AM CDT [facility] EOSINOPHIL ABSOLUTE 0.23 0.00 - 0.70 K/uL 06/21/2025 2:06 AM CDT [facility] BASOPHILS ABSOLUTE 0.03 0.00 - 0.20 K/uL 06/21/2025 2:06 AM CDT [facility] IMMATURE GRANULOCYTES ABSOLUTE 0.05 0.00 - 0.10 K/uL 06/21/2025 2:06 AM CDT [facility] SMEAR REVIEWED: NA - Not Applicable 06/21/2025 2:06 AM [facility] Blood Venipuncture / Unknown 06/21/2025 1:55 AM CDT 06/21/2025 2:03 AM CDT us Randi Marrero MD HEMATOLOGY ORDERABLES Fi nal Result [id number] [address] [place] [address] [place], [place] [address] * JOINT INFECTION PATHOGEN PCR PANEL (06/20/2025 12:39 PM CDT) [facility] Joint Infection Pathogen PCR Panel No nucleic acids detected. No nucleic acids detected. 06/21/2025 3:46 PM CDT [facility] Synovial fluid (Knee, right) Collection / Unknown 06/20/2025 12:39 PM CDT 06/20/2025 12:46 PM CDT Narrative [facility] - 06/21/2025 3:46 PM CDT Joint panel [...] of isolates and antimicrobial susceptibility testing. The [employer] JI Panel is indicated as an aid [...] rule out co-infection with other organisms. The [employer] JI Panel is not intended to monitor [...] MICROBIOLOGY - GENERAL OR DERABLES Final Result [facility] CLIA # [id number] [address] [place], [place] [id number] * ANAEROBIC/AEROBIC CULTURE W GRAM STAIN (06/20/2025 12:39 PM CDT) CULTURE No aerobic or anaerobic growth 06/23/2025 10:14 AM CDT [facility] GRAM STAIN No organisms observed 06/23/2025 10:14 AM CDT [facility] GRAM STAIN 4+ (Heavy) Polymorphonuclear WBC 06/23/2025 10:14 AM CDT [facility] Synovial fluid (Knee, right) Collection / Unknown 06/20/2025 12:39 PM CDT 06/20/2025 12:46 PM CDT us Megan Palomo LEAD VULCANIZING OPERATOR MICROBIOLOGY - GENERAL OR DERABLES Final Result Performing Organization Address City/[facility]/ZIP Co de Phone Number [facility] CLIA # [id number] [address] [address] [place] [address] * CRYSTAL IDENTIFICATION (06/20/2025 12:39 PM CDT) JOINT FLD CRYSTAL TYPE No crystals polarized No crystals polarized 06/20/2025 12:58 PM CDT [facility] Synovial fluid (Knee, right) Collection / Unknown 06/20/2025 12:39 PM CDT 06/20/2025 12:46 PM CDT us Megan Palomo LEAD VULCANIZING OPERATOR BODY FLUIDS AND STOOLS Fi nal Result Performing Organization Address City/[facility]/ZIP Co de Phone Number [facility] CLIA # [id number] [address] [place] [address] * (ABNORMAL) CELL COUNT WITH DIFFERENTIAL, BODY FLUID (06/20/2025 12:39 PM CDT) APPEARANCE, BODY FLUID Bloody 06/20/2025 1:40 PM CDT [facility] COLOR, FLD Red 06/20/2025 1:40 PM CDT [facility] TOTAL NUCLEATED CELLS, FLD (AUTO) 82,240(H) 13 - 180 /ul 06/20/2025 1:40 PM CDT [facility] TOTAL RBC'S, FLD (AUTO) 291,000(H) 0 - 2,000 /ul 06/20/2025 1:40 PM CDT [facility] NEUTROPHILS, FLD 93(H) 0 - 25 % 06/20/2025 1:40 PM CDT [facility] MONOCYTE/MACRO PHAGE, FLD 7 0 - 71 % 06/20/2025 1:40 PM CDT [facility] Synovial fluid (Knee, right) Collection / Unknown 06/20/2025 12:39 PM CDT 06/20/2025 12:46 PM CDT Megan Palomo LEAD VULCANIZING OPERATOR BODY FLUIDS AND STOOLS Fi nal Result Performing Organization Address [facility]/ZIP Co de Phone Number [facility] CLIA # [id number] [address] [place] [address] * (ABNORMAL) C-REACTIVE PROTEIN (06/20/2025 1:39 AM CDT) Pathologist [facility] CRP 311.5(H) 0.0 - 5.0 mg/L 06/20/2025 8:37 AM CDT [facility] Blood Venipuncture / Unknown 06/20/2025 1:39 AM CDT 06/20/2025 2:24 AM CDT Megan Palomo LEAD VULCANIZING OPERATOR CHEMISTRY ORDERABLES Alla l Result [facility] # [id number] [address] [place] [address] * XR KNEE 1 OR 2 VW [...] deficit, acute, stroke suspected ORDERING PROVIDER: CITLALI EHRNANDEZ TECHNOLOGISTS NOTE: COMPARISON: April 30, 2015 TECHNIQUE: [...] CULTURE No growth 06/23/2025 10:[address] [facility] Melinta [facility] Blood (Peripheral) Venipuncture / Unknown 06/18/2025 9:05 PM CDT 06/18/2025 9:18 PM CDT Citlali Hernandez DO MICROBIOLOGY - GENERAL ORDERABLES Final Result [facility] Melinta [facility] CLIA # [id number] [id number] [place] [address] * EXTRA TUBE (URINE LEPE) (06/18/2025 8:18 PM CDT) Urine URINE SPECIMEN OBTAINED BY CLEAN CATCH PROCEDURE / Unknown Collection / Unknown 06/18/2025 8:18 PM CDT 06/18/2025 8:27 PM CDT Citlali Hernandez DO URINE ORDERABLES Final Result [facility] CLIA # [id number] [address] [address] [place] [address] * (ABNORMAL) URINALYSIS WITH REFLEX MICROSCOPIC (06/18/2025 8:18 PM CDT) COLOR UA Pale Yellow Pale to Dark Yellow 06/18/2025 8:36 PM CDT [facility] CLARITY UA Clear Clear 06/18/2025 8:36 PM CDT [facility] SPECIFIC GRAVITY UA 1.020 1.003 - 1.035 06/18/2025 8:36 PM CDT [facility] PH UA 6.0 5.0 - 8.0 06/18/2025 8:36 PM CDT [facility] LEUKOCYTE ESTERASE UA Trace(A) Negative 06/18/2025 8:36 PM CDT [facility] NITRITE UA Negative Negative 06/18/2025 8:36 PM CDT [facility] PROTEIN UA 1+(A) Negative 06/18/2025 8:36 PM CDT [facility] GLUCOSE UA 4+(A) Negative 06/18/2025 8:36 PM CDT [facility] KETONES UA Negative Negative 06/18/2025 8:36 PM CDT [facility] UROBILINOGEN UA <2.0 <2.0 mg/dL 8:36 PM CDT [facility] BILIRUBIN UA Negative Negative 06/18/2025 8:36 PM CDT [facility] BLOOD UA Trace(A) Negative 06/18/2025 8:36 PM CDT [facility] WBC UA 6-10(A) 0 - 2 /hpf 06/18/2025 8:36 PM CDT [facility] RBC UA 0-2 0 - 2 /hpf 06/18/2025 8:36 PM CDT [facility] BACTERIA UA 1+(A) Negative /hpf 06/18/2025 8:36 PM CDT [facility] EPITHELIAL CELLS, URINE 0-5 0 - 5 /hpf 06/18/2025 8:36 PM CDT [facility] Urine URINE SPECIMEN OBTAINED BY CLEAN CATCH PROCEDURE / Unknown Collection / Unknown 06/18/2025 8:18 PM CDT 06/18/2025 8:27 PM CDT Citlali Hernandez DO URINE ORDERABLES Final Result [facility] CLIA # [id number] [address] [place] [address] * URINE CULTURE (06/18/2025 8:18 PM CDT) CULTURE Polymicrobial growth consistent with normal urethral alejandrina and/or colonizing bacteria 06/19/2025 3:42 PM CDT [facility] Urine URINE SPECIMEN OBTAINED BY CLEAN CATCH PROCEDURE / Unknown Collection / Unknown 06/18/2025 8:18 PM CDT 06/18/2025 8:27 PM CDT Citlali Hernandez DO MICROBIOLOGY - GENERAL ORDERABLES Final Result [facility] CLIA # [id number] [address] [place] [address] * XR CHEST PA OR AP 1 [...] 1.0 <=2.0 mmol/L 06/18/2025 7:[address] [facility] Melinta [facility] Blood Venipuncture / Unknown 06/18/2025 7:15 PM CDT 06/18/2025 7:22 PM CDT Citlali Hernandez DO CHEMISTRY ORDERABLES Fi nal Result [facility] CLIA # [id number] [address] [facility] [place] [address] * TSH (06/18/2025 6:54 PM CDT) TSH 3.12 0.27 - 4.20 uIU/mL 06/18/2025 7:37 PM CDT [facility] Blood Venipuncture / Unknown 06/18/2025 6:54 PM CDT 06/18/2025 6:59 PM CDT Karl Butler FISHING ROD ASSEMBLER CHEMISTRY ORDERABLES Alla l Result Performing Organization Address [facility] Co de Phone Number [facility] CLIA # [id number] [address] [address] [place] [address] * T4 FREE (06/18/2025 6:54 PM CDT) Pathologist [facility] T4 FREE 1.23 0.81 - 1.70 ng/dL 06/18/2025 7:37 PM CDT [facility] Blood Venipuncture / Unknown 06/18/2025 6:54 PM CDT 06/18/2025 6:59 PM CDT Citlali Hernandez DO CHEMISTRY ORDERABLES Fi nal Result Performing Organization Address [facility] de Phone Number [facility] CLIA # [id number] [address] [place] [address] * (ABNORMAL) MAGNESIUM LEVEL (06/18/2025 6:54 PM CDT) Pathologist [facility] MAGNESIUM 3.4(H) 1.6 - 2.4 mg/dL 06/18/2025 7:37 PM CDT [facility] Blood Venipuncture / Unknown 06/18/2025 6:54 PM CDT 06/18/2025 6:59 PM CDT Karl Butler APRN CHEMISTRY ORDERABLES Alla l Result [facility] CLIA # [id number] [address] [address] [place] [address] * (ABNORMAL) COMPREHENSIVE METABOLIC PANEL (06/18/2025 6:54 PM CDT) SODIUM 134(L) 136 - 145 mmol/L 06/18/2025 7:37 PM CDT [facility] POTASSIUM 5.5(H) 3.5 - 5.1 mmol/L 06/18/2025 7:37 PM CDT [facility] CHLORIDE 100 98 - 107 mmol/L 06/18/2025 7:37 PM CDT [facility] CO2 22 22 - 29 mmol/L 06/18/2025 7:37 PM CDT [facility] CALCIUM 8.9 8.8 - 10.2 mg/dL 06/18/2025 7:37 PM CDT [facility] BUN 53(H) 8 - 23 mg/dL 06/18/2025 7:37 PM CDT [facility] CREATININE 1.83(H) 0.51 - 0.95 mg/dL 06/18/2025 7:37 PM CDT [facility] Comment:The GFR result is no t clinically significant on patients <18 or >70 years of age. GLUCOSE 286(H) 74 - 99 mg/dL 06/18/2025 7:37 PM CDT [facility] TOTAL PROTEIN 7.6 6.4 - 8.3 g/dL 06/18/2025 7:37 PM CDT [facility] ALBUMIN 3.6 3.5 - 5.2 g/dL 06/18/2025 7:37 PM CDT [facility] BILIRUBIN TOTAL 0.3 0.0 - 1.0 mg/dL 06/18/2025 7:37 PM CDT [facility] ALKALINE PHOSPHATASE 125(H) 35 - 104 U/L 06/18/2025 7:37 PM CDT [facility] AST 14 10 - 35 U/L 06/18/2025 7:37 PM CDT [facility] ALT 9 <=35 U/L 06/18/2025 7:37 PM CDT [facility] GFR 29 mL/min/1. 73 sq meter 06/18/2025 7:37 PM CDT [facility] Comment:eGFR calculated with 2020 CKD-EPI equation. Vegetarian diet, extremely high or low muscle mass, and may affect results. Cystatin C with Glomerular Filtration Rate is a suitable alternative for these patients. ANION GAP 12 9 - 20 mmol/L 06/18/2025 7:37 PM CDT [facility] Blood Venipuncture / Unknown 06/18/2025 6:54 PM CDT 06/18/2025 6:59 PM CDT us Karl Butler FISHING ROD ASSEMBLER CHEMISTRY ORDERABLES Alla awan Result Performing Organization Address City/State/[facility] Co de Phone Number [facility] CLIA # [id number] [address] [address] * EKG 12-LEAD (06/18/2025 6:24 PM CDT) 06/18/2025 6:24 PM CDT Narrative INTERFACE SYSTEM - 06/20/2025 12:56 PM CDT [address] [address] Test Date: 2025-06-18 Pat Name: AMBIKASARA TRUJILLO Department: 11 Room: Gender: Female Counseling Director: [id number] : 1955 Requested By: Order Number: [id number] Reading MD: Madelin Leal Measurements Intervals Veblen Rate: 92 P: -16 PA: 186 QRS: 0 QRSD: 82 T: 58 QT: 360 QTc: 445 Interpretive Statements Normal sinus rhythm Normal ECG Electronically Signed On 06-20-2025 12:56:53 CDT by Madelin Leal Procedure Note Provider, Historical - 06/20/2025 [facility] [address] [place] [address] Test Date: 2025-06-18 Pat Name: AMBIKA CASSANDRA Department: 11 Room: Gender: Female Counseling Director: [id number] : 1955 Requested By: Order Number: [id number] Reading MD: Madelin Leal Measurements Intervals Veblen Rate: 92 P: -16 PA: 186 QRS: 0 QRSD: 82 T: 58 QT: 360 QTc: 445 Interpretive Statements Normal sinus rhythm Normal ECG Electronically Signed On 06-20-2025 12:56:53 CDT by Madelin Leal us Citlali Hernandez DO ECG ORDERABLES Final R esult INTERFACE SYSTEM Refer to clinic/hospital department * Critical Care (06/18/2025 6:07 PM CDT) Narrative Citlali Hernandez DO - 06/18/2025 6:07 PM CDT Citlali Hernadnez DO 06/19/2025 12:09 AM Critical Care Performed [...] Range mg/dL 04/08/2020 4:[address] [facility] CREATININE, URINE 46.1 29.0 - 226.0 mg/dL 04/08/2020 4:[address] [facility] Comment:Reference Range vari es with fluid intake and diet. MICROALBUMIN/ CREAT RATIO, UR 253.8(H) <25.0 mg/g 04/08/2020 4:07 PM CDT [facility] Urine URINE SPECIMEN OBTAINED BY CLEAN CATCH PROCEDURE / Unknown Collection / Unknown 04/08/2020 10:05 AM CDT 04/08/2020 2:30 PM CDT [facility]AT[facility] - 04/08/2020 4:07 PM CDT Condition Microalbumin/Creat ratio Normal Males <17 Normal Females <25 Microalbuminuria Males 17-299 Microalbuminuria Females 25-299 Overt proteinuria >=300 Raymond Morrissey DO URINE ORDERABLES Final Result [facility] CLIA# [id number] [address] [place] [id number] * (ABNORMAL) HEMOGLOBIN A1C (04/08/2020 10:05 AM CDT) HEMOGLOBIN A1C 10.8(H) See Comment % 04/08/2020 3:[address] [facility] EST. AVG GLUCOSE, A1C 263 mg/dL 04/08/2020 3:[address] [facility] [place] [facility] Blood Venipuncture / Unknown 04/08/2020 10:05 [...] 120 days. We recommend ordering a fructosamine test([id number]) to more accurately assess glycemic status if any of the above conditions are present. Raymond Morrissey DO CHEMISTRY ORDERABLES Final Resul t [facility] CLIA# [id number] [facility] [place] [address] * (ABNORMAL) LIPID PANEL (04/08/2020 10:05 AM CDT) CHOLESTEROL 174 <200 mg/dL 04/08/2020 3:[address] [facility] TRIGLYCERIDE 382(H) <150 mg/dL 04/08/2020 3:[address] [facility] HDL 37(L) 40 - 59 mg/dL 04/08/2020 3:[address] [facility] LDL CALCULATED 61 <100 mg/dL 04/08/2020 3:[address] [facility] NON-HDL CHOLESTEROL 137(H) <130 mg/dL 04/08/2020 3:[address] [facility] Blood Venipuncture / Unknown 04/08/2020 10:05 AM CDT 04/08/2020 2:[address] [facility] - 04/08/2020 3:23 [...] DO CHEMISTRY ORDERABLES Final Resul t [facility] CLIA# [id number] [place], [place] [address] * COLONOSCOPY REPORT (11/18/2019 10:59 AM MIS SPECIALIST) Narrative Procedure Note Darrell Simms MD - 11/18/2019 10:59 AM CST Procedures signed by Darrell Simms MD at 11/18/2019 10:59 AM Author: Darrell Simms MD Service: -- Author Type: Physician Filed: 11/18/2019 10:59 AM Date of Service: 11/18/2019 10:59 AM Status:Signed Opal Polisher: Darrell Simms MD (Physician) Procedure Orders 1. COLONOSCOPY REPORT [[id number]] ordered by Darrell Simms MDat 11/18/19 1059 [facility] Patient Name: Ambika Trujillo Procedure Date: [...] Scope Out: 10:56:31 AM [address] [place], [place] us Sgf Scanning GI PROCEDURE ORDERABLES Edited R esult - Final * (ABNORMAL) COLON CANCER SCREEN, STOOL DNA (10/21/2019 11:00 PM MIS SPECIALIST) COLOGUARD RESULT Positive (A) Not Applicable 10/28/2019 10:26 PM MIS SPECIALIST [facility] Comment: It is recommended that a positive [...] Erika Sheets al, N Engl J Med 2014;370(14):4351-7133.) Test Type: Composite algorithmic analysis of stool [...] can be accessed at the following location: [email or web address]/results. Additional description of the Cologuard test process, warnings and precautions can be found at [email or web address].com. Rx Only. Stool STOOL SPECIMEN / Unknown 10/21/2019 11:00 PM MIS SPECIALIST 10/23/2019 4:30 PM MIS SPECIALIST Brielle Holcomb MD BODY FLUIDS AND STOOLS Final Result [facility] CLIA # [id number] [address] , [address] [place] [address] * MAMMO SCRN BILAT 3D RENETTA W [...] * DIABETES EYE EXAM (11/05/2018 12:00 AM MIS SPECIALIST) [facility] HEALTH MAINTENANCE Final Result * XR DEXA BONE DENSITY AXIAL 1 OR MORE SITES (08/04/2018 10:12 AM MIS SPECIALIST) Anatomical Region Laterality Modality Other Impressions 08/04/2018 4:55 PM MIS SPECIALIST Abnormal examination Low bone density/osteopenia is present [...] clinical management available online at [email or web address]/[email or web address]/. Enter Sourcebits for Select DXA and the Femoral Neck BMD value. Narrative 08/04/2018 4:55 PM MIS SPECIALIST DEXA Evaluation of the Lumbar Spine, left [...] clinical management available online at [email or web address].[email or web address] Enter Sourcebits for Select DXA and the Femoral Neck BMD value. us [facility] ORDERABLES Final Result * OCCULT BLOOD IMMUNOASSAY, COLORECTAL SCREEN (04/30/2016 5:13 PM CDT) OCCULT BLOOD, STOOL Negative Negative 05/01/2016 9:[address] [facility] Stool STOOL SPECIMEN / Unknown Collection / Unknown 04/30/2016 5:13 PM CDT 04/30/2016 5:13 PM CDT Loreto Abdi MD BODY FLUIDS AND STOOLS Final Re sult [facility] CLIA# [id number] [address] [place] [address] from Last 3 Months or Most Recently Relevant to Health Maintenance Insurance AENA O MCR Advance Directives For more information, please contact: [phone] * Full Code (Latest Code Status on File) Date Activated Date Inactivated Comments 06/19/2025 5:47 AM 06/24/2025 6:58 PM Care Teams Director Skills Relationship Specialty Start Date End Date Marcia Flannery MD [address] [place] [address] PCP - General Family Practice 06/19/25
--- OUTSIDE RECORDS SUMMARY | 2025-07-04 08:48 | XMS_ITS | Encounter Summary ---
Author Organization [facility] Address [address] [place] [address] Care Team Providers Care Head Of It Name Role Phone Marcia Flannery MD Primary Care Provider [phone] Reason for Visit * Reason Comments Provider Call Encounter Details Date Type Department Care Team (Late st Contact Info) Description 07/02/2025 Telephone [facility] [place] [address] [place] [address] Taylor Fletcher, DO [address] [place] [address] Provider Call Social History Tobacco [...] worry about transportation for future doctor visits, continuous pickling line pickler medication, etc.? 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 Topic: [id number] Call >> Jul 02, 2025 10:31 AM Aleks Bob wrote: Caller is requesting to speak with Clinical Care Team. Caller Name: [facility] Callback Number: [phone] Is the caller a Physician, Nurse Practitioner or Physician Back Shoe Cutter? No Call Notes: Wanting an admission summary with a note to set up for home health from Dr Fletcher who they say saw patient at the [facility], patient has never been seen by Dr Fletcher at [facility] and was asked to transfer them over. Is this addressing an immediate patient care need? No documented in this encounter Plan of Treatment Upcoming Encounters Date Type Department Care Team (Late st Contact Info) Description 02/02/2026 2:30 PM CDT Office Visit [facility] [address] [place] [address] Boo Rubin MD [address] [place] [address] documented as of this encounter Visit Diagnoses Not on filedocumented in this encounter Care Teams Head Of It Relationship Specialty Start Date End Date Marcia Flannery MD [address] [place] [phone] PCP - General Family Practice 06/19/25 documented as of this encounter
--- OUTSIDE RECORDS SUMMARY | 2025-07-04 08:48 | XMS_ITS | Encounter Summary ---
Author Organization [facility] Address [address] [place] [address] Care Team Providers Care Administrative Asst Name Role Phone Raymond Morrissey DO Primary Care Provider [phone] Encounter Details Date Type Department Care Team (Latest Contact Info) Description 05/14/2006 Outpatient Historical [facility] [place] 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
--- OUTSIDE RECORDS SUMMARY | 2025-07-04 08:49 | XMS_ITS | Encounter Summary ---
Author Organization [facility] Address [address] [place] [address] Care Team Providers Care Photocopy Operator Name Role Phone Raymond Morrissey DO Primary Care Provider [phone] Encounter Details Date Type Department Care Team (Late st Contact Info) Description 05/28/2001 Outpatient Historical [facility] [address] [place] [address] Social History Tobacco Use Types Packs/Day Years Used Date Smoking Tobacco: Never Assessed Comments Unknown Sex and Gender Information Value Date Recorded Sex Assigned at Not on file 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
--- OUTSIDE RECORDS SUMMARY | 2025-07-04 08:49 | XMS_ITS | Encounter Summary ---
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
--- OUTSIDE RECORDS SUMMARY | 2025-07-04 08:49 | XMS_ITS | Encounter Summary ---
Author Organization [facility] Address [address] [place] [address] Care Team Providers Care Elementary Reading Tutor Name Role Phone Raymond Morrissey DO Primary Care Provider Encounter Details Date Type Department Care Team (Latest Contact Info) Description 05/28/2001 Outpatient Historical [facility] [address] [place] [address] Filiberto Ramirez MD [address] [place] [address] Type II or unspecified type diabetes mellitus without mention of complication, not stated as uncontrolled (Primary Dx); Unspecified menopausal and postmenopausal disorder; Dermatophytosis of nail; Unspecified essential hypertension Social History Tobacco Use Types Packs/Day Years Used Date Smoking Tobacco: Never Assessed Comments Unknown Sex and Gender Information Value Date Recorded Sex Assigned at Not on file 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 Gender Identity Not on file Sexual Orientation Not on file documented as of this encounter Plan of Treatment Not on file documented as of this encounter Visit Diagnoses Diagnosis Type II or unspecified type diabetes mellitus without mention of complication, not stated as uncontrolled- Primary Unspecified menopausal and postmenopausal disorder Dermatophytosis of nail Unspecified essential hypertension documented in this encounter Care Teams Elementary Reading Tutor Relationship Specialty Start Date End Date Raymond Morrissey DO PCP - General Family Practice 7/27/20 3/3/21 documented as of this encounter
--- OUTSIDE RECORDS SUMMARY | 2025-07-04 08:49 | XMS_ITS | Encounter Summary ---
Author Organization [facility] Address [address] [place] [address] Care Team Providers Care Medicare Sales Representative Name Role Phone Raymond Morrissey DO Primary Care Provider [phone] Encounter Details Date Type Department Care Team (Latest Contact Info) Description 03/26/2006 Outpatient Historical [facility]- 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
--- OUTSIDE RECORDS SUMMARY | 2025-07-04 08:49 | XMS_ITS | Encounter Summary ---
Author Organization [facility] Address [address] 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
--- OUTSIDE RECORDS SUMMARY | 2025-07-04 08:49 | XMS_ITS | Encounter Summary ---
Author Organization [facility] Address [address] [place] [address] Care Team Providers Care Reliability Technologist Name Role Phone Raymond Morrissey Kaylan SARMIENTO Primary Care Provider [phone] Reason for Visit * Reason Onset Date Comments Needs Orders Written 07/23/2017 Encounter Details Date Type Department Care Team (Late st Contact Info) Description 07/23/2017 Telephone [facility] [place] [address] 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 Gender Identity Not on file Sexual Orientation Not on file Occupation Industry Job Start Date Job End Date Not on file Not on file Not on file Not on file documented as of this encounter Plan of Treatment Not on file documented as of this encounter Procedures Procedure Name Priority Date/Time Associated Diagnosis Comments EDUCATION DIABETES, TYPE 2 Routine 07/23/2017 11:50 AM TRENCH PIPE LAYER HELPER documented in this encounter Results * EDUCATION DIABETES, TYPE 2 - PEREZ (07/23/2017 11:50 AM TRENCH PIPE LAYER HELPER) Education Name DIABETES, TYPE 2 PEREZ EDUCATION INTERFACE Education URL [email or web address] PEREZ EDUCATION INTERFACE EDUCATION ACCESS CODE [id number] PEREZ EDUCATION INTERFACE EDUCATION ISSUE DATE Jul 23, 2017 PEREZ EDUCATION INTERFACE EDUCATION START DATE PEREZ EDUCATION INTERFACE EDUCATION COMPLETED DATE This program was not started and flagged as on: Aug 23, 2017 PEREZ EDUCATION INTERFACE EDUCATION EXPIRATION DATE Aug 22, 2017 PEREZ EDUCATION INTERFACE EDUCATION MESSAGE EVENT PEREZ EDUCATION INTERFACE 07/23/2017 11:5 0 AM TRENCH PIPE LAYER HELPER us Audrey Edwards MD EXTERNAL EDUCATION ORDERABLES Fi nal Result PEREZ EDUCATION INTERFACE documented in this encounter Visit Diagnoses Not on filedocumented in this encounter Care Teams Reliability Technologist Relationship Specialty Start Date End Date Raymond Morrissey DO PCP - General Family Practice 04/11/20 11/16/20 documented as of this encounter
--- OUTSIDE RECORDS SUMMARY | 2025-07-04 08:49 | XMS_ITS | Encounter Summary ---
Author Organization [facility] Address [address] [place] [address] Care Team Providers Care Sparker And Patcher Name Role Phone Raymond Morrissey DO Primary Care Provider Encounter Details Date Type Department Care Team (Latest Contact Info) Description 10/02/2001 Outpatient Historical [facility] Internal Medicine[facility] [address] [place] [address] Filiberto Ramirez MD [address] [place] [address] DIABETES UNCOMPL ADULT-TYPE II (CMS/HCC) (Primary Dx); HYPERTENSION NOS Social History Tobacco Use Types Packs/Day Years Used Date Smoking Tobacco: Never Assessed Comments Unknown Sex and Gender Information Value Date Recorded Sex Assigned at Not on file 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
[2025-07-04 08:55] LABS: Alanine Aminotransferase 15 U/L (0-33); Albumin Level 2.9 g/dL (3.5-5.2); Alkaline Phosphatase 90 U/L (35-105); Anion Gap 21.3 (5-19); Aspartate Amino Transferase 32 U/L (0-32); Blood Urea Nitrogen 33 mg/dL (8-23); Calcium 8.2 mg/dL (8.5-10.5); Carbon Dioxide 18 mmol/L (22-29); Chloride 104 mmol/L (98-107); Creatinine Clr Calc Pharmacy 27.9442; Globulin 2.7 g/dL (1.3-4.6); Glucose 239 mg/dL (65-115); Osmolality Calculated 301 mOsm/kg (285-295); Potassium 5.3 mmol/L (3.5-5.1); Sodium 138 mmol/L (136-145); Total Protein 5.6 g/dL (6.6-8.7)
--- NOTE | 2025-07-04 14:30 | P.MISC_ITS ---
Miscellaneous Note Purpose of Documentation: Same-day admission on follow-up. Patient presented because of nausea and v omiting cannot keep anything down dehydrated now had been rehydrated feeling a little better. Patient had not eaten anything in the last 3 days but able to eat some macaroni and cheese some few bites today and keep it down will follow through with further optimization of care to prepare for discharge tomorrow. 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 Patient has this scheduled on the of this month patient should be okay to go home and still go for the surgery granted that he has no sign of infection in the system. No sign of infection patient is doing okay rehydrating and will need to walk around today with the help of the nurses. Hopefully when patient goes home goes home with home health
--- NOTE | 2025-07-04 14:45 | PC.PHAR ---
Pt has been unable to take any medications for 2 or 3 days. She does not remember when she was able to take any.
[2025-07-04 15:35] LABS: Estmated Average Glucose 206; Hemoglobin A1C 8.8 % (4.0-6.0)
[2025-07-04] MEDS: HYDROcodone-acetaminophen 5-325 mg Tablet 1 TAB PO (20:19)
[2025-07-05] VITALS: BP 95/61; PULSE 105; RESP 16; TEMP 36.8; O2SAT 93
[2025-07-05] MEDS: alum-mag-hydroxide-sime 30 mL UDC 15 ML PO ×2 (03:12→07:46)
[2025-07-05 04:33] VITALS: BP 100/58; PULSE 90; TEMP 36.7; O2SAT 94
[2025-07-05 05:47] LABS: Hematocrit 30.3 % (36-47); Hemoglobin 8.90 g/dL (11.27-16.99); Mean Corpuscular HGB Conc 29.4 g/dL (30-55); Mean Corpuscular Hemoglobin 25.8 pg (27-33); Mean Corpuscular Volume 87.8 fl (85-98); Nucleated Red Blood Cells % 0.2 %; Platelet Count 275 10^3/cmm (157-399); Red Blood Count 3.45 10^6/uL (3.85-5.65); White Blood Count 8.89 10^3/uL (3.29-11.43)
[2025-07-05 06:04] LABS: Alanine Aminotransferase 17 U/L (0-33); Albumin Level 3.0 g/dL (3.5-5.2); Alkaline Phosphatase 91 U/L (35-105); Anion Gap 19.1 (5-19); Aspartate Amino Transferase 28 U/L (0-32); Blood Urea Nitrogen 34 mg/dL (8-23); Calcium 8.5 mg/dL (8.5-10.5); Carbon Dioxide 19 mmol/L (22-29); Chloride 101 mmol/L (98-107); Creatinine Clr Calc Pharmacy 27.9442; Globulin 3.7 g/dL (1.3-4.6); Glucose 141 mg/dL (65-115); Osmolality Calculated 290 mOsm/kg (285-295); Potassium 4.1 mmol/L (3.5-5.1); Sodium 135 mmol/L (136-145); Total Protein 6.7 g/dL (6.6-8.7)
[2025-07-05 07:05] VITALS: BP 106/62; PULSE 101; RESP 16; TEMP 37; O2SAT 92
[2025-07-05 07:44] VITALS: PULSE 106; O2SAT 92
--- NOTE | 2025-07-05 09:33 | PC.CHAP ---
Pastoral Care Encounter/Spiritual Assessment Type of Contact [] Declined cycle consultant visit [] Patient/Family/Request visit [] Outpatient visit [] Follow-up visit [] Physician referral [] Code/Alert [x] Routine visit [] Staff referral [] Actively dying [x] Patient sleeping [x] Family support [] [] Out of room [] Palliative care [] [] Receiving care in room [] Pre-surgical visit [] Trauma [] Long length of stay [] ICU visit [] Other: Relational/Emotional Strength [] Patient feels connected with others/family/visitors/staff [] Distress [] Loneliness/isolation [] Abandonment Spirituality of Patient [] Person of Chanda [] Attends Orthodoxy of their Chanda [] Believes in Prayer [] Reads Bible or Church materials [] There are Spiritual issues to be addressed Blanket Cutting Machine Operator Interventions [x] Prayer [] Active listening [] Non-anxious presence [] Spiritual/emotional support [] Crisis/trauma care [] Spiritual counseling [] Bereavement support [] Provided bereavement packet [] Provided Bible/devotional materials [] Provided toy/stuffed animal, coloring book to patient or family member [] Provided Communion [] Anointing/[place] [] Salvation [] Completed spiritual assessment [] Other: Impact on Illness or Injury [] Angry [] Fearful [] Anxious [] Often cries [] Exhaustion [] Unable to work [] Unable to attend mandaen [] Unable to walk/stand [] Unable to read [] Unable to drive [] Unable to eat/drink [] Unable to sleep [] Unable to be with family [] Patient intubated [] Other: Summary pray with family member Time spent with patient 5 min
[2025-07-05 11:15] VITALS: BP 108/63; PULSE 95; RESP 16; TEMP 36.8; O2SAT 93
--- NOTE | 2025-07-05 12:24 | P.DS_ITS ---
Discharge Providers Date of Admission: 07/04/25 02:35 Date of Discharge: July 05, 2025 Attending Provider at Admission: Izaiah Knutson MD Attending Provider at Discharge: Joanne Lomas MD Primary Care Provider: Marcia Flannery MD Diagnoses at Discharge Discharge Diagnosis 1. OLIMPIA (acute kidney injury): 2. Dehydration: 3. Acute hyperkalemia: 4. Paroxysmal atrial fibrillation: 5. Mixed hyperlipidemia: 6. GERD (gastroesophageal reflux disease): 7. Type 2 diabetes mellitus without complication, with long-term current use of insulin: 8. Essential hypertension: 9. Acquired hypothyroidism: 10. Lumbar radiculopathy: 11. Degeneration of intervertebral disc of lumbar region with discogenic back pain and lower extremity pain: Reason for Visit Reason for Visit: v/ cant keep anything down Hospital Course Hospital Course Ambika Nichols is a 70 year old female past medical history of atrial fibrillation on Xarelto, hyperlipidemia, diabetes, history of pituitary tumor and strokelike symptoms Presented with vomiting and nausea that has been ongoing for the last 2 to 3 days. 1 month ago the patient had a similar episode and she thought could be food poisoning. Currently she is feeling the same symptoms. Did not report any diarrhea, any severe abdominal pain, any dizziness, any joint pain skin rash. Patient did not report any chest pain, chest pressure, shortness of breath, fever or chills. Did not report any recent lower leg swelling. The patient is compliant with her medication. Did not report any outside food. Patient presented to ER and found to have hyperkalemia and OLIMPIA on CKD evaluation of dehydration. Potassium was 6 and EKG did not showed hyperacute T wave. Patient received acute hyperkalemia management with calcium gluconate with fluid resuscitation. Physical Exam Narrative: Patient seen this morning doing okay denies any complaints sitting up in bed with the looking forward to be going home today. Patient is desiring to go home today because she is doing much better no further nausea no vomiting patient is tolerating food. HEENT normocephalic atraumatic neck neck is supple cardiovascular heart rate is regular lungs are pretty much clear abdomen soft nontender nondistended unremarkable extremities are intact no edema has good pulses neurology just no focality lab studies lab studies reviewed and noted patient creatinine had come down from 2.4 to a 2.0 today and has stayed this level in the last 2 days. And this is actually patient baseline creatinine knowing that patient has been a 2.25 days ago outside the hospital and had been 1.8 and this is the range for baseline creatinine. I cannot safely say patient creatinine baseline is 1.8-2.2. Patient in February 2025 was with creatinine of 2.0 and this is June 2024. Discharge Data Studies Completed and Pending Laboratory Results WBC 8.89 10^3/uL (3.29-11.43) 07/05/25 04:14 RBC 3.45 10^6/uL (3.85-5.65) L 07/05/25 04:14 Hgb 8.90 g/dL (11.27-16.99) L 07/05/25 04:14 Hct 30.3 % (36-47) L 07/05/25 04:14 MCV 87.8 fl (85-98) 07/05/25 04:14 MCH 25.8 pg (27-33) L 07/05/25 04:14 MCHC 29.4 g/dL (30-55) L 07/05/25 04:14 RDW 14.9 % (12.1-15.1) 07/05/25 04:14 Plt Count 275 10^3/cmm (157-399) D 07/05/25 04:14 MPV 9.6 fL (7.4-10.4) 07/05/25 04:14 Neut % (Auto) 64.8 % 07/05/25 04:14 Lymph % (Auto) 20.1 % 07/05/25 04:14 [place] % (Auto) 11.1 % 07/05/25 04:14 Eos % (Auto) 2.8 % 07/05/25 04:14 Baso % (Auto) 0.9 % 07/05/25 04:14 Neut # (Auto) 5.75 10^3/uL (1.8-7.7) 07/05/25 04:14 Lymph # (Auto) 1.8 10^3/uL (0.8-4.8) 07/05/25 04:14 [place] # (Auto) 1.0 10^3/uL (0.2-0.9) H 07/05/25 04:14 Eos # (Auto) 0.3 10^3/uL (0.0-0.8) 07/05/25 04:14 Baso # (Auto) 0.1 10^3/uL (0.0-0.1) 07/05/25 04:14 Nucleated RBC % (auto) 0.2 % 07/05/25 04:14 Nucleated RBCs # 0.0 /100WBC 07/05/25 04:14 Sodium 135 mmol/L (136-145) L 07/05/25 04:14 Potassium 4.1 mmol/L (3.5-5.1) 07/05/25 04:14 Chloride 101 mmol/L (98-107) 07/05/25 04:14 Carbon Dioxide 19 mmol/L (22-29) L 07/05/25 04:14 Anion Gap 19.1 (5-19) H 07/05/25 04:14 BUN 34 mg/dL (8-23) H 07/05/25 04:14 Creatinine 2.0 mg/dL (0.5-0.9) H 07/05/25 04:14 GFR Calculation Not Reportable 07/05/25 04:14 Glucose 141 mg/dL (65-115) H 07/05/25 04:14 POC Glucose 169 mg/dL (70-110) H 07/05/25 11:40 Estimat Average Glucose 206 07/04/25 08:15 Hemoglobin A1c 8.8 % (4.0-6.0) H 07/04/25 08:15 Calculated Osmolality 290 mOsm/kg (285-295) 07/05/25 04:14 Calcium 8.5 mg/dL (8.5-10.5) 07/05/25 04:14 Total Bilirubin 0.3 mg/dL (0.15-1.2) 07/05/25 04:14 AST 28 U/L (0-32) 07/05/25 04:14 ALT 17 U/L (0-33) 07/05/25 04:14 Alkaline Phosphatase 91 U/L (35-105) 07/05/25 04:14 Creatine Kinase 54 U/L (26-192) 07/04/25 01:49 Total Protein 6.7 g/dL (6.6-8.7) 07/05/25 04:14 Albumin 3.0 g/dL (3.5-5.2) L 07/05/25 04:14 Globulin 3.7 g/dL (1.3-4.6) 07/05/25 04:14 Lipase 13 U/L (13-60) 07/03/25 22:52 Vitals Last Vital Signs Temp 98.3 F 07/05/25 11:15 Pulse 95 07/05/25 11:15 Resp 16 07/05/25 11:15 BP 108/63 07/05/25 11:15 Pulse Ox 93 07/05/25 11:15 O2 Del Method Nasal Cannula 07/05/25 11:15 O2 Flow Rate 2 07/05/25 07:44 Discharge Plan Discharge Patient Disposition: Home Health Service Condition: Stable Prescriptions: Continued (DME) Dexcom G6 Conformal Pad Former Misc See Rx Instructions .ROUTE .MEDSUPPLY Qty: 1 0RF Rx Instructions: As directed (DME) Dexcom G6 Transmitter Device See Rx Instructions .ROUTE .MEDSUPPLY Qty: 1 0RF Rx Instructions: As directed (DME) Blood Glucose Test Strip See Rx Instructions .Route Qty: 50 0RF Rx Instructions: As directed (DME) blood-glucose meter Kit See Rx Instructions .Route Qty: 1 0RF Rx Instructions: As directed (DME) E-Z Ject Lancets 32 gauge misc See Rx Instructions .Route Qty: 100 0RF Rx Instructions: As directed baclofen 5 mg tablet 5 mg PO BID PRN (Reason: muscle spasm) Qty: 60 3RF Xarelto 20 mg tablet 20 mg PO DAILY 90 Days Qty: 90 2RF Rx Instructions: must administer with evening meal 340B metoprolol succinate 50 mg tablet extended release 24 hr 50 mg PO DAILY 90 Days Qty: 90 2RF Jardiance 25 mg tablet 25 mg PO DAILY 90 Days Qty: 90 2RF Rx Instructions: 340B levothyroxine 88 mcg tablet 88 mcg PO DAILY 90 Days Qty: 90 2RF aspirin 81 mg tablet 81 mg PO DAILY amlodipine 10 mg tablet 10 mg PO DAILY PRN (Reason: bp) 90 Days Qty: 90 0RF Rx Instructions: Hold for low bp enoxaparin [Lovenox] 80 mg/0.8 mL syringe 80 mg SUBCUT DIRECTED Qty: 4.8 0RF Rx Instructions: 06/01- last dose of Xarelto and Aspirin 06/02, 06/03, & 9/19 take one injection of Lovenox in the AM & PM Nothing on 06/05 & 06/06 (DME) Dexcom G7 Sensor Device See Rx Instructions .ROUTE .COMPLEX Qty: 3 3RF Dose Instruction: USE DIRECTED Rx Instructions: USE DIRECTED magnesium glycinate 118 mg magnesium Capsule 118 mg PO DAILY desvenlafaxine succinate 50 mg tablet extended release 24 hr 50 mg PO DAILY ondansetron 4 mg tablet,disintegrating 4 mg PO Q6H PRN (Reason: nausea and vomiting) Qty: 14 0RF Held lisinopril 40 mg tablet 40 mg PO DAILY 90 Days Qty: 90 2RF Hold Instructions: Creatinine is almost at baseline but still up we will hold till he follow-up with your PCP with subsequent chemistry Rx Instructions: 340B hydrochlorothiazide 12.5 mg tablet 12.5 mg PO QAM 90 Days Qty: 90 2RF Hold Instructions: Follow-up with your primary care doctor. Creatinine dual almost at baseline will hold hydrochlorothiazide for now until you follow-up with your PCP Discharge Order = DC NOW: Discharge Order (Routine); Ordered 07/05/25 Ordered By: Joanne Lomas Referrals: Marcia Flannery MD [Primary Care Provider, [facility]] - 07/08/25 11:00 am Patient Instructions: Dehydration - Adult, Acute Kidney Injury (GEN), Opioid Safety, Patient Portal & Tobias Instructions Discharge Attestations Time Spent in Discharge Care*: less than 30 min Status at Discharge: Cognitive status at discharge: cognitively intact , Behavioral status at discharge: cooperative , Quality Metrics Clinical Quality Measures [ No reported AMI, CVA or VTE this stay] Coding Level of Care Code 44646 Diagnoses OLIMPIA (acute kidney injury) N17.9 Dehydration E86.0 Acute hyperkalemia E87.5 Paroxysmal atrial fibrillation I48.0 Atrial fibrillation type: paroxysmal Mixed hyperlipidemia E78.2 Hyperlipidemia type: mixed hyperlipidemia GERD (gastroesophageal reflux disease) K21.9 Type 2 diabetes mellitus without complication, with long-term current use of insulin E11.9; Z79.4 Diabetes mellitus superintendent marine oil terminal insulin use: with superintendent marine oil terminal use Diabetes mellitus complication status: without complication Essential hypertension I10 Hypertension type: essential hypertension Acquired hypothyroidism E03.9 Hypothyroidism type: acquired Lumbar radiculopathy M54.16 Degeneration of intervertebral disc of lumbar region with discogenic back pain and lower extremity pain M51.362 Disc-related pain type: discogenic back pain and lower extremity pain Time Spent (min) 30
[2025-07-05 12:51] VITALS: BP 108/63; PULSE 95; RESP 16; TEMP 36.8; O2SAT 93
== END 2025-07-05 12:52 | disposition home or self-care (01) ==
LOC: ER 07-04 03:03 → ER IP 07-04 04:58 → MEDSURG 07-04 08:46
PROVIDERS: Admitting Provider Student in an Organized Health Care Education/Training Program; Emergency Provider Emergency Medicine; PCP Family Medicine; Visit Provider Internal Medicine
DX: N17.9 Acute kidney failure, unspecified (principal); E86.0 Dehydration; E87.5 Hyperkalemia; I48.0 Paroxysmal atrial fibrillation; E11.22 Type 2 diabetes mellitus with diabetic chronic kidney disease; I12.9 Hypertensive chronic kidney disease with stage 1 through stage 4 chronic kidney disease, or unspecified chronic kidney disease; N18.9 Chronic kidney disease, unspecified; E78.2 Mixed hyperlipidemia; K21.9 Gastro-esophageal reflux disease without esophagitis; Z79.4 Long term (current) use of insulin; E03.9 Hypothyroidism, unspecified; M54.16 Radiculopathy, lumbar region; M51.362 Other intervertebral disc degeneration, lumbar region with discogenic back pain and lower extremity pain; Z79.82 Long term (current) use of aspirin; Z79.01 Long term (current) use of anticoagulants; E11.40 Type 2 diabetes mellitus with diabetic neuropathy, unspecified
CPT/HCPCS: 36415; 36416; 80048; 80053; 82550; 82962; 83036; 83690; 85025; 93005; 96372; G0378; J0612; J1815; J2405; J3490; J7030; J7120; J9999

== ENCOUNTER 2025-07-07 03:14 | Inpatient (IN) | payer MEDICARE, SELFPAY ==
[2025-07-07] VITALS (43 sets, daily range): BP systolic 103–131; BP diastolic 63–83; PULSE 78–99; RESP 4–33; TEMP 36.4; O2SAT 84–97; BMI 27.3
--- OUTSIDE RECORDS SUMMARY | 2025-07-07 03:23 | XMS_ITS | Encounter Summary ---
Author Organization [facility] Address [address] [place] [address] Care Team Providers Care Child Support Specialist Name Role Phone Raymond Morrissey Kaylan SARMIENTO Primary Care Provider [phone] Reason for Visit * Reason Onset Date Comments Needs Orders Written 07/23/2017 Encounter Details Date Type Department Care Team (Late st Contact Info) Description 07/23/2017 Telephone [facility] [place] [address] 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 Gender Identity Not on file Sexual Orientation Not on file Occupation Industry Job Start Date Job End Date Not on file Not on file Not on file Not on file documented as of this encounter Plan of Treatment Not on file documented as of this encounter Procedures Procedure Name Priority Date/Time Associated Diagnosis Comments EDUCATION DIABETES, TYPE 2 Routine 07/23/2017 11:50 AM MASONRY TEACHER documented in this encounter Results * EDUCATION DIABETES, TYPE 2 - PEREZ (07/23/2017 11:50 AM MASONRY TEACHER) Education Name DIABETES, TYPE 2 PEREZ EDUCATION INTERFACE Education URL [email or web address] PEREZ EDUCATION INTERFACE EDUCATION ACCESS CODE [id number] PEREZ EDUCATION INTERFACE EDUCATION ISSUE DATE Jul 23, 2017 PEREZ EDUCATION INTERFACE EDUCATION START DATE PEREZ EDUCATION INTERFACE EDUCATION COMPLETED DATE This program was not started and flagged as on: Aug 23, 2017 PEREZ EDUCATION INTERFACE EDUCATION EXPIRATION DATE Aug 22, 2017 PEREZ EDUCATION INTERFACE EDUCATION MESSAGE EVENT PEREZ EDUCATION INTERFACE 07/23/2017 11:5 0 AM MASONRY TEACHER us Audrey Edwards MD EXTERNAL EDUCATION ORDERABLES Fi nal Result PEREZ EDUCATION INTERFACE documented in this encounter Visit Diagnoses Not on filedocumented in this encounter Care Teams Child Support Specialist Relationship Specialty Start Date End Date Raymond Morrissey DO PCP - General Family Practice 04/11/20 11/16/20 documented as of this encounter
--- OUTSIDE RECORDS SUMMARY | 2025-07-07 03:23 | XMS_ITS | Encounter Summary ---
Author Organization [facility] Address [address] [place] [address] Care Team Providers Care Sheet Cutter Name Role Phone Raymond Morrissey DO Primary Care Provider [phone] Encounter Details Date Type Department Care Team (Latest Contact Info) Description 04/17/2006 Outpatient Historical [facility] 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
--- OUTSIDE RECORDS SUMMARY | 2025-07-07 03:23 | XMS_ITS | Encounter Summary ---
Author Organization [facility] Address [address] [place] [address] Care Team Providers Care Sales And Service Technician Name Role Phone Marcia Flannery MD Primary Care Provider Reason for Visit * Reason Comments Provider Call Encounter Details Date Type Department Care Team (Late st Contact Info) Description 07/02/2025 Telephone [facility] [place] [address] [place] [address] Taylor Fletcher, DO [address] [place] [address] Provider Call Social History Tobacco [...] worry about transportation for future doctor visits, cone picker medication, etc.? 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 * Telephone Encounter - Romana Bullock CMA - 07/05/2025 11:42 AM CDT Please advise. * Telephone Encounter - Aleks Colindres - 07/02/2025 10:48 AM CDT Copied from [facility] #[id number]. Topic: [id number] Call >> Jul 02, 2025 10:31 AM Aleks Bob wrote: Caller is requesting to speak with Clinical Care Team. Caller Name: [facility] Callback Number: [phone] Is the caller a Physician, Nurse Practitioner or Physician Nitroglycerin Separator Operator? No Call Notes: Wanting an admission summary with a note to set up for home health from Dr Fletcher who they say saw patient at the [facility], patient has never been seen by Dr Fletcher at [facility] and was asked to transfer them over. Is this addressing an immediate patient care need? No documented in this encounter Plan of Treatment Upcoming Encounters Date Type Department Care Team (Late st Contact Info) Description 02/02/2026 2:30 PM CDT Office Visit [facility] [address] [place] [address] Boo Rubin MD [address] [place] [address] documented as of this encounter Visit Diagnoses Not on filedocumented in this encounter Care Teams Sales And Service Technician Relationship Specialty Start Date End Date Marcia Flannery MD [address] [place] [phone] PCP - General Family Practice 06/19/25 documented as of this encounter
--- OUTSIDE RECORDS SUMMARY | 2025-07-07 03:23 | XMS_ITS | Encounter Summary ---
Author Organization [facility] Address [address] [place] [address] Care Team Providers Care Solar Project Manager Name Role Phone Raymond Morrissey DO Primary Care Provider [phone] Encounter Details Date Type Department Care Team (Late st Contact Info) Description 05/28/2001 Outpatient Historical [facility] [address] [place] [address] Social History Tobacco Use Types Packs/Day Years Used Date Smoking Tobacco: Never Assessed Comments Unknown Sex and Gender Information Value Date Recorded Sex Assigned at Not on file 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
--- OUTSIDE RECORDS SUMMARY | 2025-07-07 03:23 | XMS_ITS | Clinical Summary ---
Author Organization [employer] Address [address] [facility] Attn: [place] [address] Care Team Providers Care Meter Installer And Remover Name Role Phone Marcia Flannery MD Primary Care Provider [phone] Allergies No known active allergies Medications traMADoL (ULTRAM) 50 mg tabletIndications:Cabin Equipment Supervisor ravinder bilateral low back pain without sciatica [...] (PRISTIQ) 50 mg Extended Release 24 hour tabletIndications:Owendale pause Take 1 Tablet (50 mg) by [...] 1 Tablet (100 mcg) by mouth daily assisted sales representative. 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 Hypothyroidism, unspecified 08/19/2014 Overview (01/12/2021): [...] Department Care Team Description 07/02/2025 Telephone [facility] [address] [facility] [place] [address] Taylor Fletcher DO Provider Call 07/01/2025 Snf Visit [facility] [address] [facility] [facility] [place] [address] Taylor Fletcher DO Paroxysmal atrial fibrillation (CMS/HCC) (Primary Dx); Pituitary adenoma; Type 2 diabetes mellitus with stage 3b chronic kidney disease, with long-term current use of insulin; Generalized weakness; Hypercholesteremia; Hyperparathyroidism; Acquired hypothyroidism; Neoplasm of unspecified behavior of endocrine glands and other parts of nervous system; Frequent UTI; Homonymous hemianopia, unspecified laterality; Sensory hearing loss, unilateral; Essential hypertension 06/22/2025 External Device Data STL ABSTRACTION Provider, Abstract 06/22/2025 External Device Data STL ABSTRACTION Provider, Abstract 06/22/2025 External Device Data STL ABSTRACTION Provider, Abstract 06/18/2025 6:25 PM CDT - 06/24/2025 4:52 PM CDT Hospital Encounter [facility] Medical Telemetry [address] [place] [address] Citlali Hernandez, DO Lopez, MD Janes Maloney, MD Tyler Maki, Cori Stahl MD Generalized weakness Discharge Disposition: Discharged/transferr ed to a alf facility (SNF) with Medicare certificatio 06/18/2025 - 06/18/2025 11:59 PM CDT Hospital Encounter [facility] Emergency Medical Services [facility] [address] [place] [address] Ambulance, [facility] Discharge Disposition: Short term general hospital [...] worry about transportation for future doctor visits, peanut picker medication, etc.? 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 Gender Identity Not on file Sexual [...] PM CDT Office Visit [facility] [address] [place] [address] Boo Rubin MD [address] [place] [address] Health Maintenance Due Date Last [...] Screening 11/17/2026 Medical Devices Implanted Type Area Boat Dispatcher Device Identifier Shelf Expiration Date Model / Serial / Lot Lens Io Tecnis 1pc 21.5 [id number] - [id number] Implanted:Qty: 1 on 04/01/2017 by Jim Akers DO Eye Right: Eye [employer] 01/18/2021 [id number] / [id number] / Lens Io Tecnis 1pc 21.5 [id number] - [id number] Implanted:Qty: 1 on 04/15/2017 by Jim Akers DO Eye Left: Eye [employer] 01/31/2021 [id number] / [id number] / Procedures Procedure Name Priority Date/Time Associated [...] CDT COLONOSCOPY REPORT 11/18/2019 10 :59 AM GAMEWELL OPERATOR COLON CANCER SCREEN, STOOL DNA Routine 10/21/2019 11:00 PM GAMEWELL OPERATOR MAMMO 3D RENETTA SCREEN BILAT W OR WO CAD Routine 01/05/2019 1:18 PM CDT Visit for screening mammogram [facility] DIABETES EYE EXAM 11/05/2018 12:00 AM GAMEWELL OPERATOR XR DEXA BONE DENSITY AXIAL 1 OR MORE SITES Routine 08/04/2018 10:12 AM GAMEWELL OPERATOR [facility] (hyperparathyroi dism) OCCULT BLOOD IMMUNOASSAY, COLORECTAL SCREEN Routine 04/30/2016 5:13 PM CDT from Last 3 Months or Most Recently Relevant to Health Maintenance Results * TELEMETRY REPORT (06/25/2025 2:05 PM CDT) us Provider Scanning ECG ORDERABLES Final Result * (ABNORMAL) POC GLUCOSE (06/24/2025 12:04 PM CDT) Only the most recent of22 resultswithin the time period is included. GLUCOSE POC 257(H) 74 - 99 mg/dL 06/24/2025 12:04 PM CDT [facility] SPECIMEN SOURCE, GLUCOSE POC Capillary 06/24/2025 12:04 PM CDT [facility] Blood, whole 06/24/2025 12:0 4 PM CDT 06/24/2025 12:22 PM CDT Cori Scott MD POINT OF CARE TESTING Fi nal Result [facility] CLIA # [id number] [facility] [address] [employer] [employer], [place] [id number] * (ABNORMAL) BASIC METABOLIC PANEL (06/24/2025 4:13 AM CDT) Only the most recent of7 resultswithin the time period is included. SODIUM 132(L) 136 - 145 mmol/L 06/24/2025 5:01 AM CDT [facility] POTASSIUM 5.1 3.5 - 5.1 mmol/L 06/24/2025 5:01 AM CDT [facility] CHLORIDE 107 98 - 107 mmol/L 06/24/2025 5:01 AM CDT [facility] CO2 17(L) 22 - 29 mmol/L 06/24/2025 5:01 AM CDT [facility] CALCIUM 7.9(L) 8.8 - 10.2 mg/dL 06/24/2025 5:01 AM T [facility] BUN 40(H) 8 - 23 mg/dL 06/24/2025 5:01 AM [facility] CREATININE 1.71(H) 0.51 - 0.95 mg/dL 06/24/2025 5:01 AM [facility] Comment:The GFR result is no t clinically significant on patients <18 or >70 years of age. GLUCOSE 289(H) 74 - 99 mg/dL 06/24/2025 5:01 AM [facility] GFR 31 mL/min/1. 73 sq meter 06/24/2025 5:01 AM [facility] Comment:eGFR calculated with 2020 CKD-EPI equation. Vegetarian diet, extremely high or low muscle mass, and may affect results. Cystatin C with Glomerular Filtration Rate is a suitable alternative for these patients. ANION GAP 8(L) 9 - 20 mmol/L 06/24/2025 5:01 AM T [facility] Blood Venipuncture / Unknown 06/24/2025 4:13 AM CDT 06/24/2025 4:26 AM CDT Cori Scott MD CHEMISTRY ORDERABLES Fin al Result [facility] CLIA # [id number] [address] [place] [address] * VANCOMYCIN LEVEL RANDOM (06/23/2025 5:49 AM CDT) Only the most recent of3 resultswithin the time period is included. VANCOMYCIN, RANDOM 16.8 5.0 - 50.0 ug/mL 06/23/2025 6:55 AM T [facility] Blood Venipuncture / Unknown 06/23/2025 5:49 AM CDT 06/23/2025 6:22 AM CDT Narrative [facility] - 06/23/2025 6:55 AM CDT Vancomycin Therapeutic Ranges: Vancomycin Trough: 10 - 20 mcg/mL Vancomycin Peak: 25 - 50 mcg/mL Cori Scott MD CHEMISTRY ORDERABLES Fin al Result [facility] CLIA # [id number] [facility] [address] * (ABNORMAL) CBC WITH DIFFERENTIAL (06/21/2025 1:55 AM CDT) Only the most recent of4 resultswithin the time period is included. [facility] WBC 7.5 4.8 - 10.8 K/uL 06/21/2025 2:06 AM [facility] RBC 3.14(L) 4.20 - 5.40 M/uL 06/21/2025 2:06 AM [facility] HEMOGLOBIN 8.3(L) 12.0 - 16.0 g/dL 06/21/2025 2:06 AM [facility] HEMATOCRIT 26.4(L) 36.0 - 46.0 % 06/21/2025 2:06 AM [facility] MCV 84.1 84.0 - 103.0 fL 06/21/2025 2:06 AM [facility] MCH 26.4(L) 27.0 - 34.0 pg 06/21/2025 2:06 AM T [facility] MCHC 31.4 30.0 - 35.0 g/dL 06/21/2025 2:06 AM [facility] PLATELETS 156 140 - 440 K/uL 06/21/2025 2:06 AM [facility] MPV 9.1 8.9 - 12.8 fL 06/21/2025 2:06 AM [facility] RDW 14.1 11.0 - 14.5 % 06/21/2025 2:06 AM [facility] RDW-STDEV 43.6 37.0 - 54.0 fL 06/21/2025 2:06 AM [facility] NEUTROPHILS 66 42 - 75 % 06/21/2025 2:06 AM [facility] LYMPHOCYTES 18(L) 24 - 44 % 06/21/2025 2:06 AM [facility] MONOCYTES 12(H) 2 - 10 % 06/21/2025 2:06 AM [facility] EOSINOPHILS 3 0 - 7 % 06/21/2025 2:06 AM [facility] BASOPHILS 0 0 - 1 % 06/21/2025 2:06 AM [facility] IMMATURE GRANULOCYTES 1 0 - 2 % 06/21/2025 2:06 AM [facility] NEUTROPHIL ABSOLUTE 4.94 2.00 - 8.00 K/uL 06/21/2025 2:06 AM [facility] LYMPHOCYTE ABSOLUTE 1.35 1.20 - 4.00 K/uL 06/21/2025 2:06 AM [facility] MONOCYTE ABSOLUTE 0.86(H) 0.10 - 0.60 K/uL 06/21/2025 2:06 AM [facility] EOSINOPHIL ABSOLUTE 0.23 0.00 - 0.70 K/uL 06/21/2025 2:06 AM [facility] BASOPHILS ABSOLUTE 0.03 0.00 - 0.20 K/uL 06/21/2025 2:06 AM [facility] IMMATURE GRANULOCYTES ABSOLUTE 0.05 0.00 - 0.10 K/uL 06/21/2025 2:06 AM [facility] SMEAR REVIEWED: NA - Not Applicable 06/21/2025 2:06 AM [facility] Blood Venipuncture / Unknown 06/21/2025 1:55 AM CDT 06/21/2025 2:03 AM CDT us Randi Marrero MD HEMATOLOGY ORDERABLES Fi nal Result [facility] CLDOLORES # [id number] [address] [place] [address] * JOINT INFECTION PATHOGEN PCR PANEL (06/20/2025 12:39 PM CDT) [facility] Joint Infection Pathogen PCR Panel No nucleic acids detected. No nucleic acids detected. 06/21/2025 3:46 PM CDT [facility] Synovial fluid (Knee, right) Collection / Unknown 06/20/2025 12:39 PM CDT 06/20/2025 12:46 PM CDT Narrative [facility] - 06/21/2025 3:46 PM CDT Joint panel [...] of isolates and antimicrobial susceptibility testing. The BioFire JI Panel is indicated as an aid [...] rule out co-infection with other organisms. The BioFire JI Panel is not intended to monitor [...] Serratia marcescens Yeast: Nery spp. Nery albicans Megan Palomo VICE PRESIDENT OF NEWS MICROBIOLOGY - GENERAL OR DERABLES Final Result Performing Organization Address [facility] Co de Phone Number [facility] CLIA # [id number] [facility] [address] * ANAEROBIC/AEROBIC CULTURE W GRAM STAIN (06/20/2025 12:39 PM CDT) CULTURE No aerobic or anaerobic growth 06/23/2025 10:14 AM CDT [facility] GRAM STAIN No organisms observed 06/23/2025 10:14 AM CDT [facility] GRAM STAIN 4+ (Heavy) Polymorphonuclear WBC 06/23/2025 10:14 AM CDT [facility] Synovial fluid (Knee, right) Collection / Unknown 06/20/2025 12:39 PM CDT 06/20/2025 12:46 PM CDT Megan Palomo VICE PRESIDENT OF NEWS MICROBIOLOGY - GENERAL OR DERABLES Final Result Performing Organization Address [facility] Co de Phone Number [facility] CLIA # [id number] [facility] [address] * CRYSTAL IDENTIFICATION (06/20/2025 12:39 PM CDT) JOINT FLD CRYSTAL TYPE No crystals polarized No crystals polarized 06/20/2025 12:58 PM [address]T [facility] Synovial fluid (Knee, right) Collection / Unknown 06/20/2025 12:39 PM CDT 06/20/2025 12:46 PM CDT Megan Krause [place] VICE PRESIDENT OF NEWS BODY FLUIDS AND STOOLS Fi nal Result Performing Organization Address [facility] de Phone Number [facility] CLIA # [id number] [address] [address] * (ABNORMAL) CELL COUNT WITH DIFFERENTIAL, BODY FLUID (06/20/2025 12:39 PM CDT) APPEARANCE, BODY FLUID Bloody 06/20/2025 1:40 PM CDT [facility] COLOR, FLD Red 06/20/2025 1:40 PM CDT [facility] TOTAL NUCLEATED CELLS, FLD (AUTO) 82,240(H) 13 - 180 /ul 06/20/2025 1:40 PM CDT [facility] TOTAL RBC'S, FLD (AUTO) 291,000(H) 0 - 2,000 /ul 06/20/2025 1:40 PM CDT [facility] NEUTROPHILS, FLD 93(H) 0 - 25 % 06/20/2025 1:40 PM CDT [facility] MONOCYTE/MACRO PHAGE, FLD 7 0 - 71 % 06/20/2025 1:40 PM CDT [facility] Synovial fluid (Knee, right) Collection / Unknown 06/20/2025 12:39 PM CDT 06/20/2025 12:46 PM CDT Megan Palomo VICE PRESIDENT OF NEWS BODY FLUIDS AND STOOLS Fi nal Result Performing Organization Address [facility] Co de Phone Number [facility] CLIA # [id number] [address] [address] * (ABNORMAL) C-REACTIVE PROTEIN (06/20/2025 1:39 AM CDT) CRP 311.5(H) 0.0 - 5.0 mg/L 06/20/2025 8:37 AM CDT [facility] Stuffle [facility] Blood Venipuncture / Unknown 06/20/2025 1:39 AM CDT 06/20/2025 2:24 AM CDT Megan Palomo VICE PRESIDENT OF NEWS CHEMISTRY ORDERABLES Alla l Result [facility] CLIA # [id number] [address] [address] [place] [address] * XR KNEE 1 OR 2 VW [...] well-maintained. No acute osseous pathology. No subluxation. us Randi aMrrero MD DIAGNOSTIC IMAGING ORDER BALDEMAR Final Result [...] CULTURE No growth 06/23/2025 10:03 PM CDT [facility] Blood (Peripheral) Venipuncture / Unknown 06/18/2025 9:05 PM CDT 06/18/2025 9:18 PM CDT Citlali Hernandez DO MICROBIOLOGY - GENERAL ORDERABLES Final Result Performing Organization Address City/[facility]/ZIP Co de Phone Number [facility] CLIA # [id number] [address] [address] [place] [address] * EXTRA TUBE (URINE LEPE) (06/18/2025 8:18 PM CDT) Urine URINE SPECIMEN OBTAINED BY CLEAN CATCH PROCEDURE / Unknown Collection / Unknown 06/18/2025 8:18 PM CDT 06/18/2025 8:27 PM CDT Citlali Hernandez DO URINE ORDERABLES Final Result Performing Organization Address [facility]/ZIP Co de Phone Number [facility] CLIA # [id number] [address] [address] * (ABNORMAL) URINALYSIS WITH REFLEX MICROSCOPIC (06/18/2025 8:18 PM CDT) COLOR UA Pale Yellow Pale to Dark Yellow 06/18/2025 8:36 PM CDT [facility] CLARITY UA Clear Clear 06/18/2025 8:36 PM CDT [facility] SPECIFIC GRAVITY UA 1.020 1.003 - 1.035 06/18/2025 8:36 PM CDT [facility] PH UA 6.0 5.0 - 8.0 06/18/2025 8:36 PM CDT [facility] LEUKOCYTE ESTERASE UA Trace(A) Negative 06/18/2025 8:36 PM CDT [facility] NITRITE UA Negative Negative 06/18/2025 8:36 PM CDT [facility] PROTEIN UA 1+(A) Negative 06/18/2025 8:36 PM CDT [facility] GLUCOSE UA 4+(A) Negative 06/18/2025 8:36 PM CDT [facility] KETONES UA Negative Negative 06/18/2025 8:36 PM CDT [facility] UROBILINOGEN UA <2.0 <2.0 mg/dL 8:36 PM CDT [facility] BILIRUBIN UA Negative Negative 06/18/2025 8:36 PM CDT [facility] BLOOD UA Trace(A) Negative 06/18/2025 8:36 PM CDT [facility] WBC UA 6-10(A) 0 - 2 /hpf 06/18/2025 8:36 PM CDT [facility] RBC UA 0-2 0 - 2 /hpf 06/18/2025 8:36 PM CDT [facility] BACTERIA UA 1+(A) Negative /hpf 06/18/2025 8:36 PM CDT [facility] EPITHELIAL CELLS, URINE 0-5 0 - 5 /hpf 06/18/2025 8:36 PM CDT [facility] Urine URINE SPECIMEN OBTAINED BY CLEAN CATCH PROCEDURE / Unknown Collection / Unknown 06/18/2025 8:18 PM CDT 06/18/2025 8:27 PM CDT Citlali Hernandez DO URINE ORDERABLES Final Result [facility] CLIA # [id number] [address] [place] [id number] * URINE CULTURE (06/18/2025 8:18 PM CDT) CULTURE Polymicrobial growth consistent with normal urethral alejandrina and/or colonizing bacteria 06/19/2025 3:42 PM CDT [facility] Urine URINE SPECIMEN OBTAINED BY CLEAN CATCH PROCEDURE / Unknown Collection / Unknown 06/18/2025 8:18 PM CDT 06/18/2025 8:27 PM CDT Citlali Hernandez DO MICROBIOLOGY - GENERAL ORDERABLES Final Result [facility] CLIA # [id number] [address] [facility] [place] [address] * XR CHEST PA OR AP 1 [...] 1.0 <=2.0 mmol/L 06/18/2025 7:46 PM CDT [facility] Blood Venipuncture / Unknown 06/18/2025 7:15 PM CDT 06/18/2025 7:22 PM CDT Citlali Hernandez DO CHEMISTRY ORDERABLES Fi nal Result Performing Organization Address City/[facility]/ZIP Co de Phone Number [facility] CLIA # [id number] [address] [place] [address] * TSH (06/18/2025 6:54 PM CDT) TSH 3.12 0.27 - 4.20 uIU/mL 06/18/2025 7:37 PM CDT [facility] Blood Venipuncture / Unknown 06/18/2025 6:54 PM CDT 06/18/2025 6:59 PM CDT Karl Butler MACHINE TOOL REBUILDER CHEMISTRY ORDERABLES Lala l Result Performing Organization Address [facility] Co de Phone Number [facility] CLIA # [id number] [address] [facility] [place] [address] * T4 FREE (06/18/2025 6:54 PM CDT) T4 FREE 1.23 0.81 - 1.70 ng/dL 06/18/2025 7:37 PM CDT [facility] Blood Venipuncture / Unknown 06/18/2025 6:54 PM CDT 06/18/2025 6:59 PM CDT Citlali Hernandez DO CHEMISTRY ORDERABLES Fi nal Result Performing Organization Address City/[facility]/ZIP Co de Phone Number [facility] CLIA # [id number] [address] [place] [address] * (ABNORMAL) MAGNESIUM LEVEL (06/18/2025 6:54 PM CDT) Pathologist [facility] MAGNESIUM 3.4(H) 1.6 - 2.4 mg/dL 06/18/2025 7:37 PM CDT [facility] Blood Venipuncture / Unknown 06/18/2025 6:54 PM CDT 06/18/2025 6:59 PM CDT Karl Butler APRN CHEMISTRY ORDERABLES Alla l Result [facility] CLIA # [id number] [id number] [place] [address] * (ABNORMAL) COMPREHENSIVE METABOLIC PANEL (06/18/2025 6:54 PM CDT) [facility] SODIUM 134(L) 136 - 145 mmol/L 06/18/2025 7:37 PM CDT [facility] POTASSIUM 5.5(H) 3.5 - 5.1 mmol/L 06/18/2025 7:37 PM CDT [facility] CHLORIDE 100 98 - 107 mmol/L 06/18/2025 7:37 PM CDT [facility] CO2 22 22 - 29 mmol/L 06/18/2025 7:37 PM CDT [facility] CALCIUM 8.9 8.8 - 10.2 mg/dL 06/18/2025 7:37 PM CDT [facility] BUN 53(H) 8 - 23 mg/dL 06/18/2025 7:37 PM CDT [facility] CREATININE 1.83(H) 0.51 - 0.95 mg/dL 06/18/2025 7:37 PM CDT [facility] Comment:The GFR result is no t clinically significant on patients <18 or >70 years of age. GLUCOSE 286(H) 74 - 99 mg/dL 06/18/2025 7:37 PM CDT [facility] TOTAL PROTEIN 7.6 6.4 - 8.3 g/dL 06/18/2025 7:37 PM CDT [facility] ALBUMIN 3.6 3.5 - 5.2 g/dL 06/18/2025 7:37 PM CDT [facility] BILIRUBIN TOTAL 0.3 0.0 - 1.0 mg/dL 06/18/2025 7:37 PM CDT [facility] ALKALINE PHOSPHATASE 125(H) 35 - 104 U/L 06/18/2025 7:37 PM CDT [facility] AST 14 10 - 35 U/L 06/18/2025 7:37 PM CDT [facility] ALT 9 <=35 U/L 06/18/2025 7:37 PM CDT [facility] GFR 29 mL/min/1. 73 sq meter 06/18/2025 7:37 PM CDT [facility] Comment:eGFR calculated with 2020 CKD-EPI equation. Vegetarian diet, extremely high or low muscle mass, and may affect results. Cystatin C with Glomerular Filtration Rate is a suitable alternative for these patients. ANION GAP 12 9 - 20 mmol/L 06/18/2025 7:37 PM CDT [facility] Blood Venipuncture / Unknown 06/18/2025 6:54 PM CDT 06/18/2025 6:59 PM CDT Karl Butler MACHINE TOOL REBUILDER CHEMISTRY ORDERABLES Alla l Result [facility] CLIA # [id number] [address] [address] * EKG 12-LEAD (06/18/2025 6:24 PM CDT) 06/18/2025 6:24 PM CDT Narrative INTERFACE SYSTEM - 06/20/2025 12:56 PM CDT [facility] [address] [address] Test Date: 2025-06-18 Pat Name: AMBIKA TRUJILLO Department: 11 Room: Gender: Female Mobile Heavy Equipment Operator: [id number] : 1955 Requested By: Order Number: [id number] Reading : Madelin Leal Measurements Intervals [place] Rate: 92 P: -16 [place]: 186 QRS: 0 QRSD: 82 T: 58 QT: 360 QTc: 445 Interpretive Statements Normal sinus rhythm Normal ECG Electronically Signed On 06-20-2025 12:56:53 CDT by Madelin Leal Procedure Note Provider, Historical - 06/20/[address] [address] Test Date: 2025-06-18 Pat Name: AMBIKA TRUJILLO Department: 11 Room: Gender: Female Mobile Heavy Equipment Operator: [id number] : 1955 Requested By: Order Number: [id number] Reading : Madelin Leal Measurements Intervals [place] Rate: 92 P: -16 [place]: 186 QRS: 0 QRSD: 82 T: 58 [...] specialty: no Care discussed with: admitting provider Citlali Hernandez DO PROCEDURE/MINOR SURGICA L ORDERABLES Final Result * (ABNORMAL) MICROALBUMIN/CREATININE RATIO, RANDOM UR (04/08/2020 10:05 AM CDT) MICROALBUMIN, URINE 11.7 No Reference Range mg/dL 04/08/2020 4:07 PM T [facility] SALGUERO CREATININE, URINE 46.1 29.0 - 226.0 mg/dL 04/08/2020 4:07 PM T [facility] Comment:Reference Range vari es with fluid intake and diet. MICROALBUMIN/ CREAT RATIO, UR 253.8(H) <25.0 mg/g 04/08/2020 4:07 PM T [facility] Urine URINE SPECIMEN OBTAINED BY CLEAN CATCH PROCEDURE / Unknown Collection / Unknown 04/08/2020 10:05 AM CDT 04/08/2020 2:30 PM CDT Narrative [facility] - 04/08/2020 4:07 PM CDT Condition Microalbumin/Creat ratio Normal Males <17 Normal Females <25 Microalbuminuria Males 17-299 Microalbuminuria Females 25-299 Overt proteinuria >=300 Raymond Morrissey DO URINE ORDERABLES Final Result [facility] CLIA# [id number] [address] [place] [id number] * (ABNORMAL) HEMOGLOBIN A1C (04/08/2020 10:05 AM CDT) HEMOGLOBIN A1C 10.8(H) See Comment % 04/08/2020 3:02 PM CDT [facility] EST. AVG GLUCOSE, A1C 263 mg/dL 04/08/2020 3:02 PM CDT [facility] Blood Venipuncture / Unknown 04/08/2020 10:05 AM CDT 04/08/2020 2:31 PM CDT Narrative [facility] - 04/08/2020 3:02 PM CDT HGB A1C INTERPRETATION NORMAL: <5.7% PRE-DIABETES: 5.7 - 6.4% DIABETES: 6.5% OR GREATER Falsely low A1C measurements can occur when: 1. Anemia and/or hemolytic anemia is present. 2. Hemoglobin variants present. 3. Renal failure. 4. Transfusion of blood product in the last 120 days. We recommend ordering a fructosamine test([id number]) to more accurately assess glycemic status if any of the above conditions are present. us Ryamond Morrissey DO CHEMISTRY ORDERABLES Final Resul t [facility] IA# [id number] [facility] [place] [address] * (ABNORMAL) LIPID PANEL (04/08/2020 10:05 AM CDT) CHOLESTEROL 174 <200 mg/dL 04/08/2020 3:23 PM CDT [facility] TRIGLYCERIDE 382(H) <150 mg/dL 04/08/2020 3:23 PM CDT [facility] HDL 37(L) 40 - 59 mg/dL 04/08/2020 3:23 PM CDT [facility] LDL CALCULATED 61 <100 mg/dL 04/08/2020 3:23 PM CDT [facility] NON-HDL CHOLESTEROL 137(H) <130 mg/dL 04/08/2020 3:23 PM CDT [facility] Blood Venipuncture / Unknown 04/08/2020 10:05 AM CDT 04/08/2020 2:32 PM CDT Narrative [facility] - 04/08/2020 3:23 [...] Morrissey DO CHEMISTRY ORDERABLES Final Resul t [facility] IA# [id number] [address] [place] [address] * COLONOSCOPY REPORT (11/18/2019 10:59 AM GAMEWELL OPERATOR) Narrative Procedure Note Darrell Simms MD - 11/18/2019 10:59 AM CST Procedures signed by Darrell Simms MD at 11/18/2019 10:59 AM Author: Darrell Simms MD Service: -- Author Type: Physician Filed: 11/18/2019 10:59 AM Date of Service: 11/18/2019 10:59 AM Status:Signed Graphics Intern: Darrell Simms MD (Physician) Procedure Orders 1. COLONOSCOPY REPORT [[id number]] ordered by Darrell Simms MDat 11/18/19 1059 [...] 10:44:16 AM Scope Out: 10:56:31 AM 5 PHUONG Willis us Sgf Scanning GI PROCEDURE ORDERABLES Edited R esult - Final * (ABNORMAL) COLON CANCER SCREEN, STOOL DNA (10/21/2019 11:00 PM GAMEWELL OPERATOR) COLOGUARD RESULT Positive (A) Not Applicable 10/28/2019 10:26 PM GAMEWELL OPERATOR [facility] Comment: It is recommended that a positive [...] both Cologuard and colonoscopy. (Table 3, Erika Krishnamurthy et al, N Engl J Med 2014;370(14):2914-6999.) Test Type: Composite algorithmic analysis of stool [...] can be accessed at the following location: [email or web address]. Additional description of the Cologuard test process, warnings and precautions can be found at [email or web address]. Rx Only. Stool STOOL SPECIMEN / Unknown 10/21/2019 11:00 PM GAMEWELL OPERATOR 10/23/2019 4:30 PM GAMEWELL OPERATOR Brielle Holcomb MD BODY FLUIDS AND STOOLS Final Result [facility] DONTRELLIA # [id number] [address] , [address] [place] [address] * MAMMO SCRN BILAT 3D RENETTA W [...] HM DIABETES EYE EXAM (11/05/2018 12:00 AM GAMEWELL OPERATOR) Sgf Scanning HEALTH MAINTENANCE Final Result * XR DEXA BONE DENSITY AXIAL 1 OR MORE SITES (08/04/2018 10:12 AM GAMEWELL OPERATOR) Anatomical Region Laterality Modality Other Impressions 08/04/2018 4:55 PM GAMEWELL OPERATOR Abnormal examination Low bone density/osteopenia is present [...] clinical management available online at [email or web address] Enter [facility] for Select DXA and the Femoral Neck BMD value. Narrative 08/04/2018 4:55 PM GAMEWELL OPERATOR DEXA Evaluation of the Lumbar Spine, [...] clinical management available online at [email or web address] Enter [facility] for Select DXA and the Femoral Neck BMD value. Ada SUTTON DIAGNOSTIC IMAGING ORDERABLES Final Result * OCCULT BLOOD IMMUNOASSAY, COLORECTAL SCREEN (04/30/2016 5:13 PM CDT) OCCULT BLOOD, STOOL Negative Negative 05/01/2016 9:52 AM CDT [facility] Stool STOOL SPECIMEN / Unknown Collection / Unknown 04/30/2016 5:13 PM CDT 04/30/2016 5:13 PM CDT Loreto Abdi MD BODY FLUIDS AND STOOLS Final Re sult [facility] CLIA# [id number] [address] [place] [address] from Last 3 Months or Most Recently Relevant to Health Maintenance Insurance [employer] O MCR Advance Directives For more information, please contact: [phone] * Full Code (Latest Code Status on File) Date Activated Date Inactivated Comments 06/19/2025 5:47 AM 06/24/2025 6:58 PM 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
--- OUTSIDE RECORDS SUMMARY | 2025-07-07 03:23 | XMS_ITS | Encounter Summary ---
Author Organization [facility] Address [address] [place] [address] Care Team Providers Care Grades 9 12 Tutor Name Role Phone Raymond Morrissey Kaylan SARMIENTO Primary Care Provider [phone] Encounter Details Date Type Department Care Team (Late st Contact Info) Description 12/01/2014 Ancillary Orders [facility] [address] [facility] [address] [place] [phone] Loreto Abdi MD [address] [place] [address] Other screening mammogram (Primary Dx) Social History Tobacco Use Types Packs/Day Years Used Date Smoking Tobacco: Never Smokeless Tobacco: Never Alcohol Use Standard Drinks/Week Comments No 0 (1 standard drink = 0.6 oz pur e alcohol) Comments No Sex and Gender Information Value Date Recorded Sex Assigned at Not on file Legal Sex Female 6:[address] MAGISTRATE Gender Identity Not on file Sexual Orientation Not on file Occupation Industry Job Start Date Job End Date Not on file Not on file Not on file Not on file documented as of this encounter Plan of Treatment Not on file documented as of this encounter Results * MAMMO DIGITIZED STUDY (12/18/2000 12:35 PM CDT) Narrative Brigid Watosn - 12/01/2014 12:35 PM CDT This exam was auto finalized to allow images to be scanned to PACS. us Loreto Abdi MD DIAGNOSTIC IMAGING ORDERABLES F inal Result documented in this encounter Visit Diagnoses Diagnosis Other screening mammogram Other screening mammogram- Primary documented in this encounter Care Teams Grades 9 12 Tutor Relationship Specialty Start Date End Date Raymond Morrissey DO PCP - General Family Practice 04/11/20 11/16/20 documented as of this encounter
--- OUTSIDE RECORDS SUMMARY | 2025-07-07 03:23 | XMS_ITS | Encounter Summary ---
Author Organization [facility] Address [address] [place] [address] Care Team Providers Care Salon Customer Experience Specialist Name Role Phone Raymond Morrissey DO Primary Care Provider Encounter Details Date Type Department Care Team (Latest Contact Info) Description 10/02/2001 Outpatient Historical [facility] [address] [place] [address] Filiberto Ramirez MD [address] [place] [address] DIABETES UNCOMPL ADULT-TYPE II (CMS/HCC) (Primary Dx); HYPERTENSION NOS Social History Tobacco Use Types Packs/Day Years Used Date Smoking Tobacco: Never Assessed Comments Unknown Sex and Gender Information Value Date Recorded Sex Assigned at Not on file Legal Sex Female 6:19 AM WEIGHT GUESSER Gender Identity Not on file Sexual Orientation Not on file documented as of this encounter Plan of Treatment Not on file documented as of this encounter Visit Diagnoses Diagnosis Type II or unspecified type diabetes mellitus without mention of complication, not stated as uncontrolled- Primary Unspecified essential hypertension documented in this encounter Care Teams Salon Customer Experience Specialist Relationship Specialty Start Date End Date Raymond Morrissey DO PCP - General Family Practice 04/11/20 11/16/20 documented as of this encounter
--- OUTSIDE RECORDS SUMMARY | 2025-07-07 03:23 | XMS_ITS | Encounter Summary ---
Author Organization [facility] Address [address] [place] [address] Care Team Providers Care Foreign Correspondent Name Role Phone Yuni Raymond Kaylan SARMIENTO Primary Care Provider [phone] Reason for Referral * Radiology Services (Routine) [...] Expiration Date Visits Re quested Visits Authorized [id number] Closed 12/03/2018 01/03/2020 1 1 Encounter Details Date Type Department Care Team (Latest Contact Info) Description 12/03/2018 Ancillary Orders [facility] Pre-Registration [place] CALL TO MAKE APPOINTMENT ONLY [address] [place] [address] Brielle Holcomb MD [address] [place] [address] Visit for screening mammogram Social History Tobacco Use Types Packs/Day Years Used Date Smoking Tobacco: Never Smokeless Tobacco: Never Alcohol Use Standard Drinks/Week Comments No 0 (1 standard drink = 0.6 oz pur e alcohol) Comments No Sex and Gender Information Value Date Recorded Sex Assigned at Not on file Legal Sex Female 6:19 AM CAR FERRIER Gender Identity Not on file Sexual Orientation [...] mammogram documented in this encounter Care Teams Foreign Correspondent Relationship Specialty Start Date End Date Raymond Morrissey DO PCP - General Family Practice 04/11/20 11/16/20 documented as of this encounter
--- OUTSIDE RECORDS SUMMARY | 2025-07-07 03:23 | XMS_ITS | Encounter Summary ---
Author Organization [facility] Address [address] [place] [address] Care Team Providers Care Sports Broadcaster Name Role Phone Raymond Morrissey DO Primary Care Provider [phone] Encounter Details Date Type Department Care Team (Latest Contact Info) Description 02/19/2001 Outpatient Historical [facility] [address] [place] [address] Filiberto Ramirez MD [address] [place] [address] Type II or unspecified type [...] on file Legal Sex Female 6:19 AM GSE MECHANIC Gender Identity Not on file Sexual [...] medications documented in this encounter Care Teams Sports Broadcaster Relationship Specialty Start Date End Date Raymond Morrissey DO PCP - General Family Practice 04/11/20 11/16/20 documented as of this encounter
--- OUTSIDE RECORDS SUMMARY | 2025-07-07 03:23 | XMS_ITS | Encounter Summary ---
Author Organization [facility] Address [address] [place] [address] Care Team Providers Care Naturopath Name Role Phone Raymond Morrissey DO Primary Care Provider Encounter Details Date Type Department Care Team (Latest Contact Info) Description 05/28/2001 Outpatient [facility] Internal Medicine[facility] [address] [place] [address] Filiberto Ramirez MD [address] [place] [address] Type II or unspecified type diabetes mellitus without mention of complication, not stated as uncontrolled (Primary Dx); Unspecified menopausal and postmenopausal disorder; Dermatophytosis of nail; Unspecified essential hypertension Social History Tobacco Use Types Packs/Day Years Used Date Smoking Tobacco: Never Assessed Comments Unknown Sex and Gender Information Value Date Recorded Sex Assigned at Not on file Legal Sex Female 6:19 AM PIZZA COOK Gender Identity Not on file Sexual Orientation Not on file documented as of this encounter Plan of Treatment Not on file documented as of this encounter Visit Diagnoses Diagnosis Type II or unspecified type diabetes mellitus without mention of complication, not stated as uncontrolled- Primary Unspecified menopausal and postmenopausal disorder Dermatophytosis of nail Unspecified essential hypertension documented in this encounter Care Teams Naturopath Relationship Specialty Start Date End Date Raymond Morrissey DO PCP - General Family Practice 7/27/20 3/3/21 documented as of this encounter
--- OUTSIDE RECORDS SUMMARY | 2025-07-07 03:23 | XMS_ITS | Encounter Summary ---
Author Organization [facility] Address [address] [place] [address] Care Team Providers Care Under Seal Operator Name Role Phone Raymond Morrissey DO Primary Care Provider [phone] Encounter Details Date Type Department Care Team (Latest Contact Info) Description 05/14/2006 Outpatient Historical [facility] Orthopedics[address] [place] [address] Kartik Gonzalez MD NO ADDRESS ON FILE Adhesive Capsulit Shlder (Primary Dx) Social History Tobacco Use Types Packs/Day Years Used Date Smoking Tobacco: Never Assessed Comments Unknown Sex and Gender Information Value Date Recorded Sex Assigned at Not on file Legal Sex Female 6:19 AM SNAKE CHARMER Gender Identity Not on file Sexual Orientation Not on file documented as of this encounter Plan of Treatment Not on file documented as of this encounter Visit Diagnoses Diagnosis Adhesive capsulit shlder- Primary Adhesive capsulitis of shoulder documented in this encounter Care Teams Under Seal Operator Relationship Specialty Start Date End Date Raymond Morrissey DO PCP - General Family Practice 04/11/20 11/16/20 documented as of this encounter
--- OUTSIDE RECORDS SUMMARY | 2025-07-07 03:23 | XMS_ITS | Encounter Summary ---
Author Organization [facility] Address [address] [place] [address] Care Team Providers Care Director Of Security Name Role Phone Raymond Morrissey DO Primary Care Provider [phone] Encounter Details Date Type Department Care Team (Latest Contact Info) Description 03/26/2006 Outpatient Historical [facility] Orthopedics[address] [place] [address] Kartik Gonzalez MD NO ADDRESS ON FILE Adhesive Capsulit Shlder (Primary Dx); Other Affections of Shoulder Region, not Elsewhere Classified Social History Tobacco Use Types Packs/Day Years Used Date Smoking Tobacco: Never Assessed Comments Unknown Sex and Gender Information Value Date Recorded Sex Assigned at Not on file Legal Sex Female 6:19 AM BRAND COORDINATOR Gender Identity Not on file Sexual Orientation Not on file documented as of this encounter Plan of Treatment Not on file documented as of this encounter Visit Diagnoses Diagnosis Adhesive capsulit shlder- Primary Adhesive capsulitis of shoulder Other affections of shoulder region, not elsewhere classified documented in this encounter Care Teams Director Of Security Relationship Specialty Start Date End Date Raymond Morrissey DO PCP - General Family Practice 04/11/20 11/16/20 documented as of this encounter
--- OUTSIDE RECORDS SUMMARY | 2025-07-07 03:23 | XMS_ITS | Encounter Summary ---
Author Organization [facility] Address [address] Banksn: Epic Prelude ADT [place] [address] Care Team Providers Care Rubber Flap Tuber Machine Operator Name Role Phone Raymond Morrissey DO Primary Care Provider [phone] Encounter Details Date Type Department Care Team (Latest Contact Info) Description 08/09/2001 Emergency Raymond Winn MD NO ADDRESS ON FILE Social History Tobacco Use Types Packs/Day Years Used Date Smoking Tobacco: Never Assessed Comments Unknown Sex and Gender Information Value Date Recorded Sex Assigned at Not on file Legal Sex Female 6:19 AM MANAGER INTEGRATION Gender Identity Not on file Sexual Orientation Not on file documented as of this encounter Plan of Treatment Not on file documented as of this encounter Visit Diagnoses Not on filedocumented in this encounter Care Teams Rubber Flap Tuber Machine Operator Relationship Specialty Start Date End Date Raymond Morrissey DO PCP - General Family Practice 04/11/20 11/16/20 documented as of this encounter
--- OUTSIDE RECORDS SUMMARY | 2025-07-07 03:23 | XMS_ITS | Clinical Summary ---
Author Organization [facility] Address [address] [place] [address] Care Team Providers Care Automatic Packer Operator Name Role Phone Unavailable Primary Care Provider [...] (PRISTIQ) 50 mg Extended Release 24 hour tabletIndications:[place] pause Take 1 Tablet (50 mg) by [...] kidney disease) stage 3, GFR 30-59 ml/min ([facility]) Take 1 Tablet (40 mg) by mouth [...] 1 020 Active traMADoL (ULTRAM) 50 mg tabletIndications:Glue Specialty Supervisor ravinder bilateral low back pain without sciatica Take 2 Tablets (100 mg) by mouth 2 times daily as needed for Pain. 60 Tablet 1 020 Active levothyroxine 100 mcg tabletIndications:Hypo thyroidism, unspecified type,Type 2 diabetes mellitus with stage 3 chronic kidney disease, with long-term current use of insulin,Essential hypertension,Hyperlipi demia, unspecified hyperlipidemia type,Hyperparathyroidi sm Take 1 Tablet (100 mcg) by mouth daily senior oracle applications developer. 90 Tablet 020 Active tiZANidine (ZANAFLEX) 4 [...] adenoma 09/22/2014 Overview (09/22/2014): resection done at [facility] in 02/2014. Hypothyroidism, unspecified 08/19/2014 Overview (04/10/2020): [...] on file Legal Sex Female 6:19 AM WEB DESIGNER Gender Identity Not on file Sexual Orientation Not on file Occupation Industry Job Start Date Job End Date Not on file Not on file Not on file Not on file Last Filed Vital Signs Vital Sign Reading Time Taken Comments Blood Pressure 138/70 04/08/2020 8:41 AM CDT Pulse 80 04/08/2020 8:41 AM CDT Temperature 36.3 C (97.4 F) 10/14/2019 1:35 PM WEB DESIGNER Respiratory Rate 18 11/18/2019 11:05 AM WEB DESIGNER Oxygen Saturation 96% 04/08/2020 8:41 AM CDT [...] series) 02/24/2028 Medical Devices Implanted Type Area Assistant Corporate Secretary Device Identifier Shelf Expiration Date Model / Serial / Lot Lens Io Tecyessenia 1pc 21.5 [id number] - [id number] Implanted:Qty: 1 on 04/01/2017 by Jim Akers DO at [facility] Right: Eye [employer] 01/18/2021 [id number] / [id number] / Lens Io Tecnis 1pc 21.5 [id number] - [id number] Implanted:Qty: 1 on 04/15/2017 by Jim Akers, DO at [facility] Left: Eye [employer] 01/31/2021 [id number] / [id number] / Procedures Procedure Name Priority Date/Time Associated Diagnosis Comments MICROALBUMIN/CREATIN INE RATIO, RANDOM UR Routine 04/08/2020 10:05 AM CDT Essential hypertension CKD (chronic kidney disease) stage 3, GFR 30-59 ml/min ([facility]) Type 2 diabetes mellitus with hyperglycemia, without long-term current use of insulin ([facility]) LIPID PANEL Routine 04/08/2020 10:05 AM CDT Hypercholesteremia Screening, ischemic heart disease HEMOGLOBIN A1C Routine 04/08/2020 10:05 AM CDT Type 2 diabetes mellitus with hyperglycemia, without long-term current use of insulin ([facility]) COLONOSCOPY REPORT 11/18/2019 11 :00 AM WEB DESIGNER COLON CANCER SCREEN, STOOL DNA Routine 10/21/2019 11:00 PM WEB DESIGNER Screening for colon cancer MAMMO 3D RENETTA SCREEN BILAT W OR WO CAD Routine 01/05/2019 1:18 PM CDT Visit for screening mammogram HM DIABETES EYE EXAM Routine 11/05/2018 XR DEXA BONE DENSITY AXIAL 1 OR MORE SITES Routine 08/04/2018 10:12 AM WEB DESIGNER HPTH (hyperparathyroidis m) OCCULT BLOOD IMMUNOASSAY, COLORECTAL SCREEN Routine 04/30/2016 5:13 PM CDT Visit for screening mammogram from Last 3 Months or Most Recently Relevant to Health Maintenance Results * (ABNORMAL) MICROALBUMIN/CREATININE RATIO, RANDOM UR (04/08/2020 10:05 AM CDT) MICROALBUMIN, URINE 11.7 No Reference Range mg/dL 04/08/2020 4:07 PM CDT [facility] CREATININE, URINE 46.1 29.0 - 226.0 mg/dL 04/08/2020 4:07 PM CDT [facility] Comment:Reference Range vari es with fluid intake and diet. MICROALBUMIN/ CREAT RATIO, UR 253.8(H) <25.0 mg/g 04/08/2020 4:07 PM CDT [facility] Urine URINE SPECIMEN OBTAINED BY CLEAN CATCH PROCEDURE / Unknown Collection / Unknown 04/08/2020 10:05 AM CDT 04/08/2020 2:30 PM CDT [facility] - 04/08/2020 4:07 PM CDT Condition Microalbumin/Creat ratio Normal Males <17 Normal Females <25 Microalbuminuria Males 17-299 Microalbuminuria Females 25-299 Overt proteinuria >=300 Raymond Morrissey DO URINE ORDERABLES Final Result [facility]# [id number] [address] [place] [id number] * (ABNORMAL) HEMOGLOBIN A1C (04/08/2020 10:05 AM CDT) HEMOGLOBIN A1C 10.8(H) See Comment % 04/08/2020 3:02 PM CDT [facility] EST. AVG GLUCOSE, A1C 263 mg/dL 04/08/2020 3:02 PM CDT [facility] Blood Venipuncture / Unknown 04/08/2020 10:05 AM CDT 04/08/2020 2:31 PM CDT [facility] - 04/08/2020 3:02 PM CDT HGB A1C INTERPRETATION NORMAL: <5.7% PRE-DIABETES: 5.7 - 6.4% DIABETES: 6.5% OR GREATER Falsely low A1C measurements can occur when: 1. Anemia and/or hemolytic anemia is present. 2. Hemoglobin variants present. 3. Renal failure. 4. Transfusion of blood product in the last 120 days. We recommend ordering a fructosamine test([id number]) to more accurately assess glycemic status if any of the above conditions are present. Raymond Morrissey DO CHEMISTRY ORDERABLES Final Resul t [facility] CLIA# [id number] [facility] [place] [address] * (ABNORMAL) LIPID PANEL (04/08/2020 10:05 AM CDT) CHOLESTEROL 174 <200 mg/dL 04/08/2020 3:23 PM CDT [facility] TRIGLYCERIDE 382(H) <150 mg/dL 04/08/2020 3:23 PM CDT [facility] HDL 37(L) 40 - 59 mg/dL 04/08/2020 3:23 PM CDT [facility] LDL CALCULATED 61 <100 mg/dL 04/08/2020 3:23 PM CDT [facility] NON-HDL CHOLESTEROL 137(H) <130 mg/dL 04/08/2020 3:23 PM CDT [facility] Blood Venipuncture / Unknown 04/08/2020 10:05 AM CDT 04/08/2020 2:32 PM CDT [facility] - 04/08/2020 3:23 PM [...] Morrissey DO CHEMISTRY ORDERABLES Final Resul t [facility] CLIA# [id number] [place] [address] * COLONOSCOPY REPORT (11/18/2019 11:00 AM WEB DESIGNER) Narrative Procedure Note Darrell Simms MD - 11/18/2019 10:59 AM CST [facility] Patient Name: Ambika Nichols Procedure Date: [...] Scope Out: 10:56:31 AM [address] [place], [place] Darrell Simms MD GI PROCEDURE ORDERABLES Final Result * (ABNORMAL) COLON CANCER SCREEN, STOOL DNA (10/21/2019 11:00 PM WEB DESIGNER) COLOGUARD RESULT Positive (A) Not Applicable [facility] Comment: It is recommended that a [...] Erika Sheets al, N Engl J Med 2014;370(14):6024-8448.) Test Type: Composite algorithmic analysis of stool [...] can be accessed at the following location: [email or web address]. Additional description of the Cologuard test process, warnings and precautions can be found at [email or web address]. Rx Only. Stool STOOL SPECIMEN / Unknown 10/21/2019 11:00 PM WEB DESIGNER 10/23/2019 4:30 PM WEB DESIGNER Brielle Holcomb MD BODY FLUIDS AND STOOLS Final Result [facility] CLIA # [id number] [address], [address] [place] [address] * MAMMO SCRN BILAT 3D RENETTA W [...] 1 OR MORE SITES (08/04/2018 10:12 AM WEB DESIGNER) Anatomical Region Laterality Modality Nuclear Medicine 08/04/2018 10:1 2 AM WEB DESIGNER Impressions 08/04/2018 4:55 PM WEB DESIGNER IMPRESSION: Abnormal examination Low bone density/osteopenia is [...] clinical management available online at [email or web address] [facility] for Select DXA and the Femoral Neck BMD value. Narrative 08/04/2018 4:55 PM WEB DESIGNER DEXA Evaluation of the Lumbar Spine, left [...] clinical management available online at [email or web address] [facility] for Select DXA and the Femoral Neck BMD value. [facility] ORDERABLES Final Result * OCCULT BLOOD IMMUNOASSAY, COLORECTAL SCREEN (04/30/2016 5:13 PM CDT) OCCULT BLOOD, STOOL Negative Negative 05/01/2016 9:52 AM CDT [facility] Stool STOOL SPECIMEN / Unknown Collection / Unknown 04/30/2016 5:13 PM CDT 04/30/2016 5:13 PM CDT us Loreto Abdi MD BODY FLUIDS AND STOOLS Final Re jonelle [facility]# [id number] [address] [place] [address] from Last 3 Months or Most Recently Relevant to Health Maintenance Advance Directives For more information, please contact: [phone] * Full Code (Latest Code Status on File) Date Activated Date Inactivated Comments 11/18/2019 10:15 AM 11/18/2019 1:45 PM * Full Code Date Activated Date Inactivated Comments 04/15/2017 7:13 AM 04/15/2017 11:07 AM * Full Code Date Activated Date Inactivated Comments 04/01/2017 6:56 AM 04/01/2017 10:16 AM
--- OUTSIDE RECORDS SUMMARY | 2025-07-07 03:23 | XMS_ITS | Encounter Summary ---
Author Organization [facility] Address [address] [place] [address] Care Team Providers Care Pest Control Technician Name Role Phone Marcia Flannery MD Primary Care Provider [phone] Reason for Visit * Reason Comments Custodial Visit Encounter Details Date Type Department Care Team (Latest Contact Info) Description 07/01/2025 Custodial Visit [facility] [place] [address] [place] [address] Taylor Fletcher, DO [address] [place] [address] Paroxysmal atrial fibrillation (CMS/HCC) (Primary Dx); Pituitary adenoma; Type 2 diabetes mellitus with stage 3b chronic kidney disease, with long-term current use of insulin; Generalized weakness; Hypercholesteremia; Hyperparathyroidism; Acquired hypothyroidism; Neoplasm of unspecified behavior of endocrine glands and other parts of nervous system; Frequent UTI; Homonymous hemianopia, unspecified laterality; Sensory hearing loss, unilateral; Essential hypertension Social History Tobacco Use Types Packs/Day [...] on file Legal Sex Female 2:55 AM WHARF TENDER HELPER Gender Identity Not on file Sexual Orientation Not on file documented as of this encounter Progress Notes * Taylor Fletcher, DO - 07/05/2025 3:37 PM CDT CHIEF COMPLAINT: retirement visit PROBLEM LIST: Patient Active Problem List 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 with history of pituitary adenoma status post resection 2013, type 2 diabetes, hypertension, hyperlipidemia, stage 3 chronic kidney disease, and atrial fibrillation was having muscle weakness, balance problems and vision changes that were worsening in the past year. 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 Her daughter has been caring for her she worsened which resulted in a hospitalization in [place] on 06/18/2025. She was also found to have a urinary tract infection. Her labs also showed worsening kidney function and hyperkalemia. She did slowly improve during this admission but was still too weak to return home. She was admitted to [facility] and had follow up with [facility] in [facility] to plan endoscopic surgery for this in the future. She has been slowly gaining strength and her blood sugars are impro ving. Physical Exam: General appearance: elderly white female Head: atraumatic, Normocephalic, without obvious abnormality Eyes: conjunctivae/corneas clear Ears: normal TM's and external ear canals AU Nose: no congestion Throat: no lesions Lungs: clear to auscultation bilaterally, normal respiratory effort Heart: normal rate, regular rhythm, normal S1, S2, no murmurs, rubs, clicks or gallops Abdomen: Soft, non-tender. Bowel sounds normal. No masses, no organomegaly. Extremities: 1+ edema to lower extremities. Encounter Diagnoses Code Name Primary? I48.0 Paroxysmal atrial fibrillation (CMS/HCC) Yes D35.2 Pituitary adenoma E11.22, N18.32, Z79.4 Type 2 diabetes mellitus with stage 3b chronic kidney disease, with long-termcurrent use of insulin R53.1 Generalized weakness E78.00 Hypercholesteremia E21.3 Hyperparathyroidism E03.9 Acquired hypothyroidism D49.7 Neoplasm of unspecified behavior of endocrine glands and other parts of nervous system N39.0 Frequent UTI H53.469 Homonymous hemianopia, unspecified laterality H90.5 Sensory hearing loss, unilateral I10 Essential hypertension She is doing therapy and showing progress. She will be discharged back home. [facility]. She has surgery scheduled and follow up at [facility]. See all orders in retirement chart. documented in this encounter Plan of Treatment Upcoming Encounters Date Type Department Care Team (Late st Contact Info) Description 02/02/2026 2:30 PM CDT Office Visit [facility] [address] [place] [address] Boo Rubin MD [address] [place] [address] documented as of this encounter Visit Diagnoses Diagnosis Paroxysmal atrial fibrillation (CMS/HCC)- Primary Atrial fibrillation Pituitary adenoma Benign neoplasm of pituitary gland and craniopharyngeal duct (pouch) Type 2 diabetes mellitus with stage 3b chronic kidney disease, with long-term current use of insulin Generalized weakness Other malaise and fatigue Hypercholesteremia Pure hypercholesterolemia Hyperparathyroidism Hyperparathyroidism, unspecified Acquired hypothyroidism Unspecified hypothyroidism Neoplasm of unspecified behavior of endocrine glands and other parts of nervous system Frequent UTI Urinary tract infection, site not specified Homonymous hemianopia, unspecified laterality Sensory hearing loss, unilateral Essential hypertension Unspecified essential hypertension documented in this encounter Care Teams Pest Control Technician Relationship Specialty Start Date End Date Marcia Flannery MD [address] [place] [address] PCP - General Family Practice 06/19/25 documented as of this encounter
--- OUTSIDE RECORDS SUMMARY | 2025-07-07 03:23 | XMS_ITS | Encounter Summary ---
Author Organization [facility] Address [address] [place] [address] Care Team Providers Care Columnist/Commentator Name Role Phone Raymond Morrissey DO Primary Care Provider [phone] Encounter Details Date Type Department Care Team (Latest Contact Info) Description 12/18/2000 Outpatient Historical [facility] [place] [address] [place] [phone] Kian Bloom MD NO ADDRESS ON FILE Other screening mammogram (Primary Dx) Social History Tobacco Use Types Packs/Day Years Used Date Smoking Tobacco: Never Assessed Comments Unknown Sex and Gender Information Value Date Recorded Sex Assigned at Not on file Legal 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
--- OUTSIDE RECORDS SUMMARY | 2025-07-07 03:23 | XMS_ITS | Encounter Summary ---
Author Organization [facility] Address [address] [place] [address] Care Team Providers Care Band Log Mill And Carriage Operator Name Role Phone Raymond Morrissey DO Primary Care Provider Encounter Details Date Type Department Care Team (Latest Contact Info) Description 07/15/2001 Outpatient Historical [facility] [address] [place] [address] Filiberto Ramirez MD [address] [place] [address] LOCAL SKIN INFECTION NOS (Primary Dx); COUGH; DIABETES UNCOMPL ADULT-TYPE II (CMS/HCC) Social History Tobacco Use Types Packs/Day Years Used Date Smoking Tobacco: Never Assessed Comments Unknown Sex and Gender Information Value Date Recorded Sex Assigned at Not on file 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
--- NOTE | 2025-07-07 03:24 | ECG_ITS ---
[facility] Date: 2025-07-07 Pat Name: Ambika Nichols Department: Room: Gender: Female Heel Scorer: : 1955 Requested By: Ania Queen Order Number: [id number] Dale MD: Nataliya Shaw M.D. Measurements Intervals [place] Rate: 82 P: -4 MD: 183 QRS: 70 QRSD: 90 T: 123 QT: 358 QTc: 420 Interpretive Statements SINUS RHYTHM NONSPECIFIC ST & T-WAVE ABNORMALITY Compared to ECG 07/04/2025 02:59:36 No significant changes Electronically Signed On 07-07-2025 22:53:19 CDT by Nataliya Shaw M.D. [email or web address]
--- NOTE | 2025-07-07 03:55 | XRR_ITS ---
PROCEDURE INFORMATION: Exam: XR Chest Exam date and time: 07/07/2025 4:15 AM Age: 70 years old Clinical indication: Shortness of breath TECHNIQUE: Imaging protocol: Radiologic exam of the chest. Views: 1 view. COMPARISON: CR XR chest 1V portable [id number] 02/15/2025 11:06 PM FINDINGS: Lungs: There are low lung volumes. There is airspace disease at the right lung base. Findings are in a somewhat linear configuration suggesting atelectasis. An inflammatory component/pneumonia is certainly possible. No lobar consolidation is appreciated. Pleural spaces: Unremarkable. No pleural effusion. No pneumothorax. Heart/Mediastinum: The heart is enlarged. Bones/joints: Unremarkable. XR/XR chest 1V portable [id number] IMPRESSION: 1. Airspace disease involving the right lower lung. Findings could represent atelectasis, pneumonia or a combination.
[2025-07-07 04:04] LABS: Hematocrit 31.3 % (36-47); Hemoglobin 9.40 g/dL (11.27-16.99); Mean Corpuscular HGB Conc 30.0 g/dL (30-55); Mean Corpuscular Hemoglobin 25.8 pg (27-33); Mean Corpuscular Volume 85.8 fl (85-98); Nucleated Red Blood Cells % 1.1 %; Platelet Count 307 10^3/cmm (157-399); Red Blood Count 3.65 10^6/uL (3.85-5.65); White Blood Count 7.28 10^3/uL (3.29-11.43)
--- NOTE | 2025-07-07 04:07 | CTR_ITS ---
PROCEDURE INFORMATION: Exam: CTA Chest With Contrast Exam date and time: 07/07/2025 5:46 AM Age: 70 years old Clinical indication: Shortness of breath; Additional info: Hypoxia TECHNIQUE: Imaging protocol: Computed tomographic angiography of the chest with contrast. Exam focused on the arteries. 3D rendering (Not supervised by radiologist): MIP and/or 3D reconstructed images were created by the technologist. Radiation optimization: All CT scans at this facility use at least one of these dose optimization techniques: automated exposure control; mA and/or kV adjustment per patient size (includes targeted exams where dose is matched to clinical indication); or iterative reconstruction. Contrast material: OMNI 350; Contrast volume: 100 ml; Contrast route: INTRAVENOUS (IV); COMPARISON: CR (CHEST, ) 07/07/2025 4:15 AM RADIATION DOSE METRICS: Total DLP (mGy-cm): 442.83 FINDINGS: Pulmonary arteries: Normal. No pulmonary emboli. Aorta: The ascending thoracic aorta measures 4 cm in size. The descending thoracic aorta measures 2.4 cm in size. There is calcified plaque involving the aorta and coronary vessels. Please note that the aorta is not opacified to the extent necessary to evaluate for an aortic dissection. Lungs: There is compressive atelectasis bilaterally. There is septal thickening with subtle background ground-glass opacity involving both lungs in a relatively symmetric distribution likely related to pulmonary edema. Pleural spaces: There are moderate bilateral pleural effusions greater on the right than on the left. Heart: The heart is enlarged. There is trace pericardial fluid. Lymph nodes: Unremarkable. No enlarged lymph nodes. Intraperitoneal space: Small volume ascites is seen adjacent to the liver. There is a peripherally calcified lesion within the upper abdomen measuring 9.2 x 6.4 cm in size. This has previously been described as a chronic pseudocyst. Bones/joints: Unremarkable. No acute fracture. Soft tissues: Unremarkable. CT/CT angio chest PE protcl [id number] IMPRESSION: 1. Cardiomegaly. 2. Moderate-sized pleural effusions with compressive atelectasis worse on the right than on the left. 3. Findings most compatible with interstitial edema. 4. Mild aneurysmal dilatation involving the ascending aorta which measures 4 cm in size.
--- NOTE | 2025-07-07 04:07 | W.ED.AMS ---
HPI - Altered Mental Status General: Chief Complaint: Altered Mental Status Stated Complaint: ams Time Seen by Provider: 07/07/25 03:21 History of Present Illness: Patient is a 70-year-old female presenting for chief complaint of elevated blood sugar at home, episodes of confusion, feeling unwell. Patient has a history of atrial fibrillation and is on Xarelto. She also has a history of diabetes, hyperlipidemia, pituitary tumor. When patient presents, she is hypoxic and is requiring oxygen support though she states she does not feel short of breath, is not experiencing any chest pain and denies pain with respirations. She has not had a fever or chills at home. She denies abdominal pain, nausea or vomiting. She denies dysuria or hematuria. She denies blood in stool. She does not have any new lower extremity asymmetry or edema. She states she has not recently been immobilized, suffered orthopedic injury and has not had any recent surgeries. She was recently hospitalized at our facility and treated for OLIMPIA, hyperkalemia, dehydration. Patient was sent home on Kayexalate, states she has been having 3-4 loose bowel movements. To patient's knowledge, she has not been treated for heart failure. Regarding confusion, states that she has said a couple of things today that have not made sense. For example, he became concerned about her health and wanted to take her back to the hospital this morning but she told him not until [facility] opens. She is not confused now. Related Data Home Medications ?Medication ?Instructions ?Recorded ?Confirmed magnesium glycinate 118 mg PO DAILY 02/16/25 07/06/25 aspirin 81 mg tablet 81 mg PO DAILY 05/24/25 07/06/25 desvenlafaxine succinate 50 mg 50 mg PO DAILY 06/04/25 07/06/25 tablet,extended release 24 hr Previous Rx's ?Medication ?Instructions ?Recorded blood-glucose transmitter (Dexcom #1 ea 10/19/24 G6 Transmitter device) blood-glucose,regulatory administrator,cont #1 10/19/24 (Dexcom G6 [place]) blood sugar diagnostic (Blood #50 ea 12/09/24 Glucose Test strips) blood-glucose meter #1 ea 12/09/24 lancets 32 gauge (E-Z Ject Lancets) #100 ea 12/09/24 empagliflozin 25 mg tablet 25 mg PO DAILY 90 days #90 tabs 02/23/25 (Jardiance) hydrochlorothiazide 12.5 mg tablet 12.5 mg PO QAM 90 days #90 tabs 02/23/25 Held on 07/05/25. Instructions: Follow-up with your primary care doctor. Creatinine dual almost at baseline will hold hydrochlorothiazide for now until you follow-up with your PCP levothyroxine 88 mcg tablet 88 mcg PO DAILY 90 days #90 tabs 02/23/25 lisinopril 40 mg tablet 40 mg PO DAILY 90 days #90 tabs 02/23/25 Held on 07/05/25. Instructions: Creatinine is almost at baseline but still up we will hold till he follow-up with your PCP with subsequent chemistry metoprolol succinate 50 mg 50 mg PO DAILY 90 days #90 tabs 02/23/25 tablet,extended release 24 hr rivaroxaban 20 mg tablet (Xarelto) 20 mg PO DAILY 90 days #90 tabs 02/23/25 baclofen 5 mg tablet 5 mg PO BID PRN muscle spasm #60 03/16/25 tabs amlodipine 10 mg tablet 10 mg PO DAILY PRN bp 90 days #90 05/13/25 tabs enoxaparin 80 mg/0.8 mL 80 mg (0.8 mL) SUBCUT DIRECTED 05/27/25 subcutaneous syringe (Lovenox) #4.8 mL ondansetron 4 mg disintegrating 4 mg PO Q6H PRN nausea and 06/04/25 tablet vomiting #14 tabs blood-glucose sensor (Dexcom G7 #3 ea 06/28/25 Sensor device) Allergies Allergy/AdvReac Type Severity Reaction Status Date / Time No Known Allergies Allergy Verified 05/26/25 10:15 PFS ED PFSH: Medical History (Updated 07/07/25 @ 06:06 by Ania Queen MD) CKD (chronic kidney disease) Pancreatic mass A-fib Hyperlipidemia Thrombocytopenia Hyperglycemia Vomiting Diabetic neuropathy Esophageal thickening Elevated troponin Anemia Acute kidney injury Menopausal symptoms Relates she takes antidepressant for this DJD (degenerative joint disease) Hypothyroidism Pituitary tumor s/p post surgery at [facility] 2019? Hypertension DM type 2 (diabetes mellitus, type 2) Surgical History History of hysterectomy History of H/O pituitary neoplasm Status post resection Family History Other CAD (coronary artery disease) Social History Smoking and tobacco/nicotine status: never used tobacco/nicotine Second hand smoke exposure: No Alcohol intake: never Substance/Drug Use: never Female Reproductive History: Spontaneous abortions: No Physical Exam Narrative: Vitals were reviewed. PERRL, EOMI. patient is alert and oriented. Patient is pale and has pale conjunctiva. Patient has no wheezing in her lungs but she has diminished lung sounds especially in the bases with crackles. She has a soft, nondistended and nontender abdomen. No LE edema or asymmetry. Course Vital Signs: Vital signs: Vital Signs Temperature 97.5 F L 07/07/25 03:14 Pulse Rate 85 07/07/25 04:00 Respiratory Rate 18 07/07/25 04:00 Blood Pressure 109/72 07/07/25 04:00 Pulse Oximetry 93 07/07/25 04:00 Oxygen Delivery Me thod Nasal Cannula 07/07/25 03:43 Oxygen Flow Rate 6 07/07/25 03:43 MDM - Altered Mental Status Medical Decision Making 70-year-old female presenting with a chief complaint of high blood sugar at home, generalized weakness, malaise, couple of episodes of confusion and a new oxygen requirement. Patient was noted to be hypoxic on EMS arrival. Differential diagnosis includes but is limited to, pneumonia, pleural effusion, heart failure, pulmonary embolus, ACS, sepsis, anemia, other. On exam, patient is normotensive but is requiring quite a bit of oxygen support but is on 6 L of nasal cannula. Patient was evaluated with CBC, CMP, troponin, BNP, lactic acid, procalcitonin, UA, urine culture, blood culture, EKG, chest x-ray, CT PE. Patient has a normal white blood cell count and a normal lactic acid but does have an elevated procalcitonin. She has elevated creatinine from previous which may be consistent with OLIMPIA and is mildly hyperkalemic but does not have EKG changes from hyperkalemia. Patient has an elevated baseline troponin in 400s with a delta of 25. Repeat EKG demonstrates again T wave inversions in lead I and aVF but no STEMI, her presentation is consistent with NSTEMI due to systemic illness. Patient also has a urinary tract infection. Patient was given a dose of ceftriaxone. Chest x-ray reveals opacity in the right lung which may be consistent with pneumonia, pending CT scan patient was admitted to cardiac stepdown. Lab Data 07/07/25 03:30 07/07/25 03:30 Laboratory Results WBC 7.28 10^3/uL (3.29-11.43) 07/07/25 03:30 RBC 3.65 10^6/uL (3.85-5.65) L 07/07/25 03:30 Hgb 9.40 g/dL (11.27-16.99) L 07/07/25 03:30 Hct 31.3 % (36-47) L 07/07/25 03:30 MCV 85.8 fl (85-98) 07/07/25 03:30 MCH 25.8 pg (27-33) L 07/07/25 03:30 MCHC 30.0 g/dL (30-55) 07/07/25 03:30 RDW 15.6 % (12.1-15.1) H 07/07/25 03:30 Plt Count 307 10^3/cmm (157-399) 07/07/25 03:30 MPV 9.5 fL (7.4-10.4) 07/07/25 03:30 Neut % (Auto) 66.9 % 07/07/25 03:30 Lymph % (Auto) 19.2 % 07/07/25 03:30 [place] % (Auto) 11.7 % 07/07/25 03:30 Eos % (Auto) 0.7 % 07/07/25 03:30 Baso % (Auto) 0.8 % 07/07/25 03:30 Neut # (Auto) 4.87 10^3/uL (1.8-7.7) 07/07/25 03:30 Lymph # (Auto) 1.4 10^3/uL (0.8-4.8) 07/07/25 03:30 [place] # (Auto) 0.9 10^3/uL (0.2-0.9) 07/07/25 03:30 Eos # (Auto) 0.1 10^3/uL (0.0-0.8) 07/07/25 03:30 Baso # (Auto) 0.1 10^3/uL (0.0-0.1) 07/07/25 03:30 Nucleated RBC % (auto) 1.1 % 07/07/25 03:30 Nucleated RBCs # 0.1 /100WBC 07/07/25 03:30 Sodium 135 mmol/L (136-145) L 07/07/25 03:30 Potassium 5.5 mmol/L (3.5-5.1) H 07/07/25 03:30 Chloride 99 mmol/L (98-107) 07/07/25 03:30 Carbon Dioxide 19 mmol/L (22-29) L 07/07/25 03:30 Anion Gap 22.5 (5-19) H 07/07/25 03:30 BUN 42 mg/dL (8-23) H 07/07/25 03:30 Creatinine 2.5 mg/dL (0.5-0.9) H 07/07/25 03:30 GFR Calculation Not Reportable 07/07/25 03:30 Glucose 279 mg/dL (65-115) H 07/07/25 03:30 Calculated Osmolality 301 mOsm/kg (285-295) H 07/07/25 03:30 Lactic Acid 1.8 mmol/L (0.5-2.2) 07/07/25 03:30 Calcium 8.2 mg/dL (8.5-10.5) L 07/07/25 03:30 Total Bilirubin 0.5 mg/dL (0.15-1.2) 07/07/25 03:30 AST 37 U/L (0-32) H 07/07/25 03:30 ALT 32 U/L (0-33) 07/07/25 03:30 Alkaline Phosphatase 123 U/L (35-105) H 07/07/25 03:30 Troponin T Baseline 395 ng/L (0-10) H* 07/07/25 03:30 Troponin T 120 Minute 370.6 ng/L (0-10) H 07/07/25 05:20 Delta Troponin T -24.4 ABS# (0-10) L 07/07/25 05:20 NT-Pro-B Natriuret Pep 39004 pg/mL (0-125) H 07/07/25 03:30 Total Protein 6.2 g/dL (6.6-8.7) L 07/07/25 03:30 Albumin 3.2 g/dL (3.5-5.2) L 07/07/25 03:30 Globulin 3.0 g/dL (1.3-4.6) 07/07/25 03:30 Procalcitonin 0.94 ng/mL (0-0.5) H 07/07/25 03:30 Urine Color Yellow (Yellow) 07/07/25 03:30 Urine Appearance Cloudy (CLEAR) A 07/07/25 03:30 Urine pH 5.0 (5-7) 07/07/25 03:30 Ur Specific [place] 1.024 (1.005-1.030) 07/07/25 03:30 Urine Protein 2+ (Negative) A 07/07/25 03:30 Urine Glucose (UA) 3+ (Normal) H 07/07/25 03:30 Urine Ketones Negative (Negative) 07/07/25 03:30 Urine Blood Negative (Negative) 07/07/25 03:30 Urine Nitrate Negative (Negative) 07/07/25 03:30 Urine Bilirubin Negative (Negative) 07/07/25 03:30 Urine Urobilinogen 1.0 mg/dL (Negative) 07/07/25 03:30 Ur Leukocyte Esterase 1+ (Negative) A 07/07/25 03:30 Urine RBC 3-5 /hpf (0-2) 07/07/25 03:30 Urine WBC 21-50 /hpf (0-5) H 07/07/25 03:30 Ur Squamous Epith Cells 0-5 /hpf (0-5) 07/07/25 03:30 Amorphous Sediment Not Reportable 07/07/25 03:30 Urine Bacteria None seen /hpf (NONE) 07/07/25 03:30 Hyaline Casts 47.56 /lpf 07/07/25 03:30 Urine Yeast 2+ /hpf H 07/07/25 03:30 XR interpretation done by ED provider, pending radiology final review EKG Data EKG 1: Interpretation: Sinus rhythm with a heart rate of 82, normal axis, normal intervals, no clear ST segment elevation. There is an inverted T wave in lead aVL which appears new. Poor baseline; will obtain repeat. Discharge Plan Discharge Patient Disposition: Admitted As Inpatient Clinical Impression: Acute hypoxemic respiratory failure, Pneumonia involving right lung, OLIMPIA (acute kidney injury), Heart failure, Acute hyperkalemia, Urinary tract infection, Non-ST elevation [place] (NSTEMI) Condition: Stable Coding Level of Care Code ED [employer] for Chintan Persaud
[2025-07-07 04:12] LABS: Glucose Urine UA 3+ (Normal); Nitrate Urine Negative (Negative); Specific Gravity, Urine 1.024 (1.005-1.030)
[2025-07-07 04:17] LABS: Add Urine Microscopic? YES
[2025-07-07 04:21] LABS: Troponin(5th) Baseline 395 ng/L (0-10)
[2025-07-07 04:32] LABS: Lactic Sepsis W/Reflex 1.8 mmol/L (0.5-2.2)
[2025-07-07 04:36] LABS: UA Slide Review UA Slide Review Perf
--- NOTE | 2025-07-07 04:36 | ECG_ITS ---
[facility] Date: 2025-[facility]07 Pat Name: Ambika Nichols Department: Room: Gender: Female Hvac Service Tech: : 1955 Requested By: Ania Queen Order Number: [id number] Reading MD: Nataliya Shaw M.D. Measurements Intervals [place] Rate: 82 P: -12 [place]: 173 QRS: 43 QRSD: 94 T: 137 QT: 357 QTc: 417 Interpretive Statements SINUS RHYTHM NONSPECIFIC ST & T-WAVE ABNORMALITY Compared to ECG 07/04/2025 02:59:36 No significant changes Electronically Signed On 07-07-2025 22:53:08 CDT by Nataliya Shaw M.D. [email or web address] [id number]
[2025-07-07 04:44] LABS: Alanine Aminotransferase 32 U/L (0-33); Albumin Level 3.2 g/dL (3.5-5.2); Alkaline Phosphatase 123 U/L (35-105); Anion Gap 22.5 (5-19); Aspartate Amino Transferase 37 U/L (0-32); Blood Urea Nitrogen 42 mg/dL (8-23); Calcium 8.2 mg/dL (8.5-10.5); Carbon Dioxide 19 mmol/L (22-29); Chloride 99 mmol/L (98-107); Creatinine Clr Calc Pharmacy 22.0641; Globulin 3.0 g/dL (1.3-4.6); Glucose 279 mg/dL (65-115); Osmolality Calculated 301 mOsm/kg (285-295); Potassium 5.5 mmol/L (3.5-5.1); Sodium 135 mmol/L (136-145); Total Protein 6.2 g/dL (6.6-8.7)
[2025-07-07 04:53] LABS: NT Pro B Type Natriuretic Pept 61768 pg/mL (0-125)
[2025-07-07 05:09] LABS: Procalcitonin 0.94 ng/mL (0-0.5)
[2025-07-07 05:50] LABS: Troponin 5 2HR Delta -24.4 ABS# (0-10)
[2025-07-07 05:51] LABS: Troponin 5 2HR 370.6 ng/L (0-10)
[2025-07-07] MEDS: iohexol 350 mg/mL 500 mL Btl (per mL) IV (06:02)
[2025-07-07] MEDS: cefTRIAXone 1,000 mg SDV 1000 MG IVP (06:04)
--- NOTE | 2025-07-07 06:08 | ECG_ITS ---
[facility] Date: 2025-07-07 Pat Name: Ambika Nichols Department: Room: Gender: Female Primary Care Provider: : 1955 Requested By: Ania Queen Order Number: [id number] Reading MD: Nataliya Shaw M.D. Measurements Intervals [place] Rate: 84 P: 18 [place]: 191 QRS: 58 QRSD: 91 T: 136 QT: 324 QTc: 384 Interpretive Statements Possible SINUS RHYTHM NONSPECIFIC T-WAVE ABNORMALITY Compared to ECG 07/07/2025 04:36:42 No significant changes Electronically Signed On 07-07-2025 23:00:12 CDT by Nataliya Shaw M.D. [email or web address] [id number]
--- NOTE | 2025-07-07 06:35 | PM.HP ---
Providers/Chief Complaint Primary Care Provider: Marcia Flannery MD Chief Complaint: ams History of Present Illness Ambika Nichols is a 70 year old woman with chronic kidney disease (CKD) and recent hospitalization for acute kidney injury (OLIMPIA) and dehydration presents with elevated blood glucose, malaise, confusion, and hypoxemia noted by emergency medical services (oxygen saturations in the 70s). Initiated on 6 liters nasal cannula oxygen in the emergency department. Reports poor appetite over the last few days but denies vomiting or diarrhea. Denies chest pain or pressure and has not experienced increased shortness of breath when lying flat or need to sleep in a chair. Notes knee pain; has neuropathy in feet and legs, making it hard to assess swelling. Denies coughing or choking with food or liquids and denies recent aspiration symptoms. Took ?two bottles of something? recently to lower potassium via bowel movements (likely a potassium-binder). No recent dysphagia. Uncertain whether lisinopril or hydrochlorothiazide (HCTZ) were held after the last discharge as instructed. Socially, lives with spouse. Review of Systems Const: Reports: malaise; Denies: fever(s), chills or body aches ENMT: Denies: throat pain Card: Denies: chest pain, edema, pre-syncope or dyspnea on exertion Resp: Reports: dyspnea and non-productive cough (pleuritic); Denies: change in phlegm color or hemoptysis GI: Denies: abdominal pain, nausea, vomiting, diarrhea, constipation, hematochezia or melena : Denies: flank pain, urinary frequency or hematuria Musc: Denies: back pain, joint swelling or joint redness Skin/Breast: Denies: rash or new lesions Neuro: Denies: headache(s) or confusion Medications/Allergies Home Medications ?Medication ?Instructions ?Recorded ?Confirmed ?Last Taken ?Type blood-glucose transmitter (Dexcom #1 ea 10/19/24 07/07/25 Unknown Rx G6 Transmitter device) blood-glucose,maintenance supervisor electrical,cont #1 ea 10/19/24 07/07/25 Unknown Rx (Dexcom G6 Pipeline Inspector) blood sugar diagnostic (Blood #50 ea 12/09/24 07/07/25 Unknown Rx Glucose Test strips) blood-glucose meter #1 ea 12/09/24 07/07/25 Unknown Rx lancets 32 gauge (E-Z Ject Lancets) #100 ea 12/09/24 07/07/25 Unknown Rx magnesium glycinate 118 mg PO DAILY 02/16/25 07/06/25 06/02/25 History empagliflozin 25 mg tablet 25 mg PO DAILY 90 days #90 tabs 02/23/25 07/06/25 06/02/25 Rx (Jardiance) hydrochlorothiazide 12.5 mg tablet 12.5 mg PO QAM 90 days #90 tabs 02/23/25 07/04/25 06/02/25 Rx Held on 07/05/25. Instructions: Follow-up with your primary care doctor. Creatinine dual almost at baseline will hold hydrochlorothiazide for now until you follow-up with your PCP levothyroxine 88 mcg tablet 88 mcg PO DAILY 90 days #90 tabs 02/23/25 07/06/25 06/02/25 Rx lisinopril 40 mg tablet 40 mg PO DAILY 90 days #90 tabs 02/23/25 07/06/25 06/02/25 Rx Held on 07/05/25. Instructions: Creatinine is almost at baseline but still up we will hold till he follow-up with your PCP with subsequent chemistry metoprolol succinate 50 mg 50 mg PO DAILY 90 days #90 tabs 02/23/25 07/06/25 06/02/25 Rx tablet,extended release 24 hr rivaroxaban 20 mg tablet (Xarelto) 20 mg PO DAILY 90 days #90 tabs 02/23/25 07/06/25 05/31/25 Rx baclofen 5 mg tablet 5 mg PO BID PRN muscle spasm #60 03/16/25 07/06/25 06/02/25 Rx tabs amlodipine 10 mg tablet 10 mg PO DAILY PRN bp 90 days #90 05/13/25 07/06/25 Unknown Rx tabs aspirin 81 mg tablet 81 mg PO DAILY 05/24/25 07/06/25 05/31/25 History enoxaparin 80 mg/0.8 mL 80 mg (0.8 mL) SUBCUT DIRECTED 05/27/25 07/06/25 Unknown Rx subcutaneous syringe (Lovenox) #4.8 mL desvenlafaxine succinate 50 mg 50 mg PO DAILY 06/04/25 07/06/25 06/02/25 History tablet,extended release 24 hr ondansetron 4 mg disintegrating 4 mg PO Q6H PRN nausea and 06/04/25 07/06/25 Unknown Rx tablet vomiting #14 tabs blood-glucose sensor (Dexcom G7 #3 ea 06/28/25 07/07/25 Unknown Rx Sensor device) Allergies Allergy/AdvReac Type Severity Reaction Status Date / Time No Known Allergies Allergy Verified 05/26/25 10:15 PFSH Acute PFSH: Medical History CKD (chronic kidney disease) Pancreatic mass A-fib Hyperlipidemia Thrombocytopenia Hyperglycemia Vomiting Diabetic neuropathy Esophageal thickening Elevated troponin Anemia Acute kidney injury Menopausal symptoms Relates she takes antidepressant for this DJD (degenerative joint disease) Hypothyroidism Pituitary tumor s/p post surgery at [facility] 2019? Hypertension DM type 2 (diabetes mellitus, type 2) Surgical History History of hysterectomy History of H/O pituitary neoplasm Status post resection Family History Other CAD (coronary artery disease) Social History Smoking and tobacco/nicotine status: never used tobacco/nicotine Second hand smoke exposure: No Alcohol intake: never Substance/Drug Use: never Female Reproductive History: Spontaneous abortions: No Vitals/I&O/Wt Last Vital Signs Temp 97.5 F L 07/07/25 03:14 Pulse 85 07/07/25 04:00 Resp 18 07/07/25 04:00 BP 109/72 07/07/25 04:00 Pulse Ox 93 07/07/25 04:00 O2 Del Method Nasal Cannula 07/07/25 03:43 O2 Flow Rate 6 07/07/25 03:43 Weight last 48 hrs Weight 79.379 kg Physical Exam Narrative: Accompanied by her . NC on. Const: COMMON NORMALS: patient oriented x3 and alert GENERAL APPEARANCE: cooperative ORIENTATION/CONSCIOUSNESS: Yes awake OTHER: Generally weak appearing. HENMT: COMMON NORMALS: oropharynx normal Neck/C-Spine: COMMON NORMALS: no JVD Resp: COMMON NORMALS: normal respiratory effort and clear to auscultation bilaterally AUSCULTATION: clear to auscultation bilaterally Cardio: COMMON NORMALS: no JVD, regular rhythm, S1 normal heart sound present, S2 normal heart sound present and No murmurs present (Cardio) RHYTHM: regular rhythm HEART SOUNDS: S1 normal heart sound present and S2 normal heart sound present GI: COMMON NORMALS: Normal to inspection, nondistended, normoactive bowel sounds present, Soft to palpation and non-tender PALPATION: Yes Soft to palpation Extremity: COMMON NORMALS: no joint enlargement and no pedal edema Neuro: COMMON NORMALS: patient oriented x3 and moves all extremities SENSORIUM/ORIENTATION: Yes alert Skin: COMMON NORMALS: no rashes or lesions noted GENERAL SKIN EXAM: no rashes or lesions noted Data 07/07/25 03:30 07/07/25 03:30 Micro: Microbiology 07/07/25 04:37 Blood Culture - Preliminary Blood SPECIMEN COLLECTED 07/07/25 04:27 Blood Culture - Preliminary Blood SPECIMEN COLLECTED A&P Assessment and plan 1. Acute hypoxemic respiratory failure: Hypoxemia requiring 6 L nasal cannula oxygen. With possible pneumonia. Possible CHF. Pleural effusion. With OLIMPIA on CKD. NSTEMI. Reviewed vitals, CBC, CMP, troponin, NT proBNP, EKG, chest x-ray, chest CTA, ED provider note, discussed with ED provider. Additional assessment and management as below. - Continue oxygen support. RT to assess and treat. - Monitor telemetry. 2. Pneumonia involving right lung: Suspected pneumonia (right middle lobe consolidation on chest X-ray) : Chest X-ray with right middle lobe consolidation; CTA pending. - Give empiric antibiotics with ceftriaxone and azithromycin. - Obtain sputum culture if possible. - Maintain aspiration precautions. Denies frequent overt aspiration, may be occasionally . Obtain ST evaluation. - Request speech therapy evaluation. - Obtain echocardiogram (with suspected pneumonia). - With pleural effusions, would suspect less likely complicated pneumonia, with possible CHF as below, but consideration may be given to thoracentesis. Due to this we will switch over from Xarelto to heparin drip for now. Monitor for risk of bleeding. Monitor PTTs. 3. Heart failure: Possible acute CHF with noted pleural effusion, type unknown. Cardiomegaly. NT-proBNP elevated, but also in the setting of OLIMPIA on CKD, difficult to circuit court judge. No prior to compare. Does not report any heart failure symptoms. -Complete troponin EKG series, assess for cardiac ischemia, noted NSTEMI, although suspect type II [place] in the setting of acute hypoxic respiratory failure. -Obtain TTE. - Initial admission to [facility]. 4. Acute kidney injury superimposed on CKD: Again recurrence of OLIMPIA on CKD with recent admission. Worsening kidney function; recent OLIMPIA hospitalization. Unclear etiology. Hold Jardiance, possibly medication related. She also was post to stop lisinopril and HCTZ but is not sure if she did. was not able to contribute. Monitor blood pressure, monitor for any transient hypotension that may have occurred at home. -Hold off IV hydration given possible CHF. - Question of cardiorenal syndrome, without evidence of low output CHF. - Monitor intake and output. Bajwa catheter. - Hold Jardiance (empagliflozin). - Hold lisinopril and HCTZ currently. - Reassess chemistry. - Monitor for risk of worsening OLIMPIA with contrast from CT angiogram. 5. Urinary tract infection: UA suspicious for possible UTI, 21-50 WBC. 2+ yeast. Ceftriaxone. No antifungal for now. Follow-up urine culture. 6. DM type 2 (diabetes mellitus, type 2): Hyperglycemia without evidence of DKA at current time. Hold Jardiance due to OLIMPIA. Monitor POC glucose. SSI. Consistent carb diet. 7. Non-ST elevation [place] (NSTEMI): Suspect type II [place] in the setting of hypoxic respiratory failure, pneumonia, possible CHF. She denies chest pain or pressure. Does have coronary disease risk factors. Complete troponin EKG series. Obtain CT Will benefit from further cardiac risk stratification. Noted had a stress test back in 2020 which was normal. Continue aspirin. He is anticoagulated with Xarelto, switch over to heparin for now. 8. Hyperkalemia: OLIMPIA on CKD with hyperkalemia. She states received 2 doses of oral medication for hyperkalemia recently, and requests not to receive any more for now unless absolutely necessary. Discussed with her hyperkalemia 5.5. Will start low potassium diet. Make sure to hold lisinopril which she is not sure if she did at home. Reassessment chemistry requested for later this morning. Plan: Atrial fibrillation (history) : History of atrial fibrillation; previously on rivaroxaban. - Monitor telemetry. - With pleural effusion, consideration of thoracentesis, will switch from Xarelto to heparin drip for now. Monitor for risk of bleeding. Hypertension : Known history; recent instructions to hold lisinopril and HCTZ. Monitor blood pressures. Blood pressure soft so far. - Hold lisinopril and HCTZ currently. Anemia : Chronic anemia noted on complete blood count (CBC). Currently appears at baseline. Follow-up blood counts. Hyperlipidemia : History of hyperlipidemia. Does not appear to be on statin. Consider initiation at discharge. Hypothyroidism: Continue levothyroxine PDMP PDMP Reviewed: Not Reviewed Attestations Medical Necessity Statement*: Admission of over 2 midnights anticipated for assessment management of acute hypoxic respiratory failure with pneumonia, possible acute CHF, OLIMPIA on CKD, hyperkalemia, UTI, additional comorbidities as above. Diagnoses Acute hypoxemic respiratory failure J96.01 Pneumonia involving right lung J18.9 Heart failure I50.9 Acute kidney injury superimposed on CKD N17.9; N18.9 Urinary tract infection N39.0 DM type 2 (diabetes mellitus, type 2) E11.9 Non-ST elevation [place] (NSTEMI) I21.4 Hyperkalemia E87.5
[2025-07-07] MEDS: FUROsemide 10 mg/mL SDV 4mL 40 MG IVP ×2 (07:01→22:39)
--- NOTE | 2025-07-07 07:41 | PC.PHAR ---
Asa and Serafin have been on hold for a surgery at [place]. Pt continues to have issues that prevent pt from having the surgery. Discharged Saturday07/05/25 and currently being admitted 07/07/25. Spouse states pt did take her medications yesterday.
--- NOTE | 2025-07-07 08:53 | PC.NURSE ---
arrived from ED, AO x4 no c/o at this time
--- NOTE | 2025-07-07 09:09 | USCV_ITS ---
Ambika Nichols Age: 70 Gender: F : 1955 Exam Date: 07/07/2025 13:07 Ordering Phys: Izaiah Knutson MD Technologist: Exam Location: [facility] Indication: ef BP: 103 / 64 HR: Rhythm: Sinus Technical Quality: Adequate MEASUREMENTS (Male / Female) Normal Values 2D ECHO LV Diastolic Diameter PLAX 5.6 cm 4.2 - 5.9 / 3.9 - 5.3 cm IVS Diastolic Thickness 1.4 cm 0.6 - 1.0 / 0.6 - 0.9 cm IVS Systolic Thickness 1.4 cm LVPW Diastolic Thickness 1.4 cm 0.6 - 1.0 / 0.6 - 0.9 cm LVPW Systolic Thickness 1.3 cm LVOT Diameter 2.0 cm LV Ejection Fraction 2D Teich 20.1 % LV Ejection Fraction MOD 4C 25.8 % LV Ejection Fraction MOD 2C 23.5 % LV Ejection Fraction 2C AL 20.7 % LA Diameter 4.4 cm RA Systolic Volume 4C AL 55.0 ml RA Systolic Volume 4C MOD 54.6 ml LA Sys Volume AL 99.5 cm cubed LA Sys Volume Index AL 48.8 cm cubed/m squared Aorta at Sinotubular Diameter 3.0 cm FINDINGS Left Ventricle Moderately increased left ventricular cavity size. Severely decreased left ventricular systolic function. Left ventricular ejection fraction is estimated at 25 %. There appeared to be mid to distal anterior and apical akinesis, there appeared to be lateral wall hypokinesis, it is suggestive of ischemic heart disease. Right Ventricle Right Atrium Left Atrium IA Septum Mitral Valve Aortic Valve Tricuspid Valve Pulmonic Valve Pericardium Aorta IVC CONCLUSIONS Limited echo Moderately increased left ventricular cavity size. Severely decreased left ventricular systolic function. Left ventricular ejection fraction is estimated at 25 %. There appeared to be mid to distal anterior and apical akinesis, there appeared to be lateral wall hypokinesis, it is suggestive of ischemic heart disease. There is no pericardial effusion. Cori Sloan MD (Electronically Signed) Final Date: 07 July 2025 20:55 S
[2025-07-07] MEDS: heparin drip 25,000 UNIT/500 ML PREMIX 25 UNIT IV (09:35)
[2025-07-07 09:59] LABS: Anion Gap 17.5 (5-19); Blood Urea Nitrogen 45 mg/dL (8-23); Calcium 8.5 mg/dL (8.5-10.5); Carbon Dioxide 21 mmol/L (22-29); Chloride 99 mmol/L (98-107); Creatinine Clr Calc Pharmacy 26.3969; Glucose 158 mg/dL (65-115); Osmolality Calculated 291 mOsm/kg (285-295); Potassium 4.5 mmol/L (3.5-5.1); Sodium 133 mmol/L (136-145)
--- NOTE | 2025-07-07 09:59 | ECG_ITS ---
[facility]25[facility]07 Pat Name: Ambika Nichols Department: Room: [facility] Gender: Female Voice Intercept Technician: : 1955 Requested By: Ania Queen Order Number: [id number] Dale MD: Nataliya Shaw M.D. Measurements Intervals [place] Rate: 85 P: 8 MA: 181 QRS: 42 QRSD: 94 T: 129 QT: 351 QTc: 420 Interpretive Statements SINUS RHYTHM NONSPECIFIC ST & T-WAVE ABNORMALITY Compared to ECG 07/07/2025 06:08:45 No significant changes Electronically Signed On 07-07-2025 22:59:08 CDT by Nataliya Shaw M.D. [email or web address]
[2025-07-07] MEDS: heparin 5,000 unit/mL INJ 1 mL IVP (10:22)
[2025-07-07 10:28] LABS: Troponin 5 6HR 352.0 ng/L (0-10); Troponin 5 6HR Delta -43.0 ng/L (0-12)
[2025-07-07] MEDS: FUROsemide 10 mg/mL SDV 2mL 20 MG IVP (16:51)
[2025-07-07 20:36] LABS: Respiratory Syncytial Virus Ce NEGATIVE (Negative); SARS-CoV-2 PCR NEGATIVE (Negative)
--- NOTE | 2025-07-07 21:46 | P.EN_ITS ---
Event Note Event Note: Patient chest x-ray reviewed, heavy atelectasis more than pleural effusion Incentive spirometry and antibiotics for coverage of pneumonia with ceftriaxone and azithromycin to continue Sputum cultures Patient has drop in EF, consult cardiology for further management, delta Trope insignificant and the troponin leak is likely related to her OLIMPIA on CKD Having high proBNP To start Lasix guided by the blood pressure 40 IV daily Adequate intake and output monitoring Patient on Xarelto and to continue for atrial fibrillation Continue rest of her home medications Patient already on aspirin and to continue. Hold rest of the antihypertensives at the moment Continue telemetry monitoring Event Notes Attestations Time Spent in Patient Care: 16 - 35 minutes (>than 50% of time sp ent in counselling and/or direct pt care on unit) .
--- NOTE | 2025-07-07 22:00 | PC.NURSE ---
Received call from Dr. Knutson, verbal instructions to start heparin drip at 12 units/kg/hr and do not give loading bolus.
[2025-07-07] MEDS: heparin drip 25,000 UNIT/500 ML PREMIX 21 UNIT IV (22:38)
[2025-07-08] VITALS (24 sets, daily range): BP systolic 96–136; BP diastolic 57–84; PULSE 79–106; RESP 17–26; TEMP 36.6–36.7; O2SAT 92–98
[2025-07-08 04:52] LABS: Hematocrit 26.7 % (36-47); Hemoglobin 7.80 g/dL (11.27-16.99); Mean Corpuscular HGB Conc 29.2 g/dL (30-55); Mean Corpuscular Hemoglobin 24.5 pg (27-33); Mean Corpuscular Volume 83.7 fl (85-98); Nucleated Red Blood Cells % 0.9 %; Platelet Count 221 10^3/cmm (157-399); Red Blood Count 3.19 10^6/uL (3.85-5.65); White Blood Count 8.13 10^3/uL (3.29-11.43)
[2025-07-08] MEDS: cefTRIAXone 1,000 mg SDV 1000 MG IVP (05:08)
[2025-07-08 05:22] LABS: Alanine Aminotransferase 22 U/L (0-33); Albumin Level 2.7 g/dL (3.5-5.2); Alkaline Phosphatase 101 U/L (35-105); Anion Gap 16.5 (5-19); Aspartate Amino Transferase 19 U/L (0-32); Blood Urea Nitrogen 43 mg/dL (8-23); Calcium 8.1 mg/dL (8.5-10.5); Carbon Dioxide 21 mmol/L (22-29); Chloride 101 mmol/L (98-107); Creatinine Clr Calc Pharmacy 27.6539; Globulin 3.2 g/dL (1.3-4.6); Glucose 88 mg/dL (65-115); Osmolality Calculated 288 mOsm/kg (285-295); Partial Thromboplastin Time 83.4 SECONDS (23.9-36.7); Potassium 4.5 mmol/L (3.5-5.1); Sodium 134 mmol/L (136-145); Total Protein 5.9 g/dL (6.6-8.7)
--- NOTE | 2025-07-08 08:30 | CT_ITS ---
WS: [id number] TECHNIQUE: Noncontrast CT LEFT knee with coronal and sagittal reformatted images. CLINICAL INFORMATION: R/O knee effusion COMPARISON: None. DLP: 324.[address] scans at [facility] use at least one of these dose optimization techniques: automated exposure control; mA and/or kV adjustment per patient size (includes targeted exams where dose is matched to clinical indication); or iterative reconstruction. FINDINGS: Moderate tricompartment arthritis with hypertrophic changes along the joint line. Osteopenia. Vascular calcification. Moderate suprapatellar effusion. Hypertrophic patella. Mild soft tissue edema about the joint line. No evidence of osteomyelitis. CT/CT knee LT wo con* [id number] IMPRESSION: 1. Moderate to large suprapatellar effusion. 2. No evidence of osteomyelitis
[2025-07-08 08:59] LABS: Ferritin 111 ng/mL (15-150); Iron 11 ug/dL (37-145); Total Iron Binding Capacity 182 mcg/dl; Unsaturated Iron Binding 171 ug/dL (112-347)
[2025-07-08 09:15] LABS: Vitamin B12 1660 pg/mL (232-1245)
[2025-07-08 09:17] LABS: Hematocrit 31.9 % (36-47); Hemoglobin 9.20 g/dL (11.27-16.99); Mean Corpuscular HGB Conc 28.8 g/dL (30-55); Mean Corpuscular Hemoglobin 24.9 pg (27-33); Mean Corpuscular Volume 86.2 fl (85-98); Nucleated Red Blood Cells % 0.6 %; Platelet Count 236 10^3/cmm (157-399); Red Blood Count 3.70 10^6/uL (3.85-5.65); White Blood Count 8.71 10^3/uL (3.29-11.43)
--- NOTE | 2025-07-08 09:19 | PM.CONSULT ---
Providers/Reason For Consult Consulting Physician/Specialty*: RACH Shaw MD/cardiology Reason for Consult*: Patient with congestive heart failure and LV dysfunction Requesting Physician: Dr. Knutson Attending Physician: Izaiah Knutson MD Primary Care Provider: Marcia Flannery MD History of Present Illness History of Present Illness Ambika Nichols is a 70 year old female is admitted to hospital through the emergency room where she presented with uncontrolled blood sugar and altered mental status. She also was found to have features of congestive heart failure and echocardiographic evidence of significant drop in the LV ejection fraction. Cardiology consult is requested for further cardiac evaluation recommendations. This patient has a longstanding history of atrial fibrillation. She has been in and out of hospitals in the emergency room recently for various complaints. She carries a diagnosis of pituitary tumor and is awaiting surgical intervention. She has been having episodes of nausea and vomiting associated electrolyte imbalance and worsening kidney function. Apparently the patient is not able to give any detailed history. According to her daughter, she was having uncontrolled blood sugar lately. Her sugar was found to be in the 400 range at home. She also was having episodes of altered mental status. For this reason, she was brought to the emergency room. She was found to be hypoxic with a O2 saturation in the 70s as well. The chest x-ray revealed airspace densities in the right lower lobe area. Features midsized pneumonia/atelectasis. Her BNP was markedly elevated. Echocardiogram revealed an LV ejection fraction of 25%. This is a significant drop from the previous LV ejection fraction by echocardiogram in February of this year. Reportedly the ejection fraction was within normal limits at that time. Patient denies any chest pain or chest tightness. No palpitations, dizziness or syncopal episode. She has no documented history for congestive heart failure or coronary artery disease, in the past. She had a Myocardial perfusion imaging in 2020. No evidence of ischemia at that time. She has a history of hypertension, type 2 diabetes, dyslipidemia and hypothyroidism. Regarding family history, her brother had a myocardial infarction in his 50s. Her father had some heart problems but the details are not available. She has no history for any smoking abuse or alcohol abuse. Review of Systems Narrative: CONSTITUTIONAL: No fever or chills. EYES: No blurring of vision or other visual disturbances lately. ENT: No hoarseness of voice, auditory disturbances or sore throat. CARDIOVASCULAR: As mentioned above. RESPIRATORY: Shortness of breath as mentioned above GASTROINTESTINAL: Episodes of nausea and vomiting, constipation, abdominal pain, etc. GENITOURINARY: Chronic kidney disease as mentioned above INTEGUMENTARY: No skin rashes or history of skin cancer. NEURO: As mentioned above PSYCHIATRIC: No history of psychosis or major depression. HEMATOLOGIC: No bleeding disorders or significant anemia. ENDOCRINE: Uncontrolled blood sugar as mentioned above/functioning pituitary tumor MUSCULOSKELETAL: No recent joint pain or swelling. ALLERGY/IMMUNOLOGY: As mentioned above. Medications/Allergies Home Medications ?Medication ?Instructions ?Recorded ?Confirmed ?Last Taken ?Type blood-glucose transmitter (Dexcom #1 ea 10/19/24 07/07/25 Unknown Rx G6 Transmitter device) blood-glucose,senior electrical controls engineer,cont #1 ea 10/19/24 07/07/25 Unknown Rx (Dexcom G6 Industrial Technician) blood sugar diagnostic (Blood #50 ea 12/09/24 07/07/25 Unknown Rx Glucose Test strips) blood-glucose meter #1 ea 12/09/24 07/07/25 Unknown Rx lancets 32 gauge (E-Z Ject Lancets) #100 ea 12/09/24 07/07/25 Unknown Rx magnesium glycinate 118 mg PO DAILY 02/16/25 07/07/25 07/06/25 History empagliflozin 25 mg tablet 25 mg PO DAILY 90 days #90 tabs 02/23/25 07/07/25 07/06/25 Rx (Jardiance) hydrochlorothiazide 12.5 mg tablet 12.5 mg PO QAM 90 days #90 tabs 02/23/25 07/07/25 06/02/25 Rx Held on 07/05/25. Instructions: Follow-up with your primary care doctor. Creatinine dual almost at baseline will hold hydrochlorothiazide for now until you follow-up with your PCP levothyroxine 88 mcg tablet 88 mcg PO DAILY 90 days #90 tabs 02/23/25 07/07/25 07/06/25 Rx lisinopril 40 mg tablet 40 mg PO DAILY 90 days #90 tabs 02/23/25 07/07/25 06/02/25 Rx Held on 07/05/25. Instructions: Creatinine is almost at baseline but still up we will hold till he follow-up with your PCP with subsequent chemistry metoprolol succinate 50 mg 50 mg PO DAILY 90 days #90 tabs 0607/07/25 07/06/25 Rx tablet,extended release 24 hr rivaroxaban 20 mg tablet (Xarelto) 20 mg PO DAILY 90 days #90 tabs 02/23/25 07/07/25 05/31/25 Rx baclofen 5 mg tablet 5 mg PO BID PRN muscle spasm #60 03/16/25 07/07/25 06/02/25 Rx tabs amlodipine 10 mg tablet 10 mg PO DAILY PRN bp 90 days #90 05/13/25 07/07/25 07/06/25 Rx tabs aspirin 81 mg tablet 81 mg PO DAILY 05/24/25 07/07/25 07/06/25 History enoxaparin 80 mg/0.8 mL 80 mg (0.8 mL) SUBCUT DIRECTED 05/27/25 07/07/25 Unknown Rx subcutaneous syringe (Lovenox) #4.8 mL desvenlafaxine succinate 50 mg 50 mg PO DAILY 06/04/25 07/07/25 07/06/25 History tablet,extended release 24 hr ondansetron 4 mg disintegrating 4 mg PO Q6H PRN nausea and 06/04/25 07/07/25 Unknown Rx tablet vomiting #14 tabs blood-glucose sensor (Dexcom G7 #3 ea 06/28/25 07/07/25 Unknown Rx Sensor device) Allergies Allergy/AdvReac Type Severity Reaction Status Date / Time No Known Allergies Allergy Verified 05/26/25 10:15 Current Medications Generic Name Dose Route Start Last Admin Trade Name Freq PRN Reason Stop Dose Admin Aspirin 81 mg 07/08/25 05:00 07/08/25 05:09 Aspirin 81 Mg Ec Tablet PO 81 mg DAILY LIZETT Administration Ceftriaxone Sodium 1,000 mg 07/08/25 05:00 07/08/25 05:08 Ceftriaxone 1,000 Mg Sdv IVP 1,000 mg DAILY LIZETT Administration Protocol Desvenlafaxine 50 mg 07/08/25 05:00 07/08/25 05:09 Desvenlafaxine 50 Mg Tablet PO 50 mg DAILY LIZETT Administration Azithromycin 500 mg/ Sodium 250 mls @ 250 mls/hr 07/07/25 08:43 07/07/25 20:46 Chloride IV Infused Q24H LIZETT Infusion Protocol Heparin Sodium/Sodium Chloride 25,000 unit in 500 mls @ 21.228 mls/hr 07/07/25 22:00 07/08/25 05:49 Heparin Drip IV 10.74 unit/kg/hr CONT LIZETT 19 mls/hr Protocol Titration 12 UNIT/KG/HR Levothyroxine Sodium 88 mcg 07/08/25 05:00 07/08/25 05:09 Levothyroxine 88 Mcg Tablet PO 88 mcg DAILY LIZETT Administration Tramadol HCl 50 mg 07/08/25 02:55 07/08/25 03:30 Tramadol 50 Mg Tablet PO 50 mg BID PRN Administration MODERATE PAIN PFSH Acute PFSH: Medical History CKD (chronic kidney disease) Pancreatic mass A-fib Hyperlipidemia Thrombocytopenia Hyperglycemia Vomiting Diabetic neuropathy Esophageal thickening Elevated troponin Anemia Acute kidney injury Menopausal symptoms Relates she takes antidepressant for this DJD (degenerative joint disease) Hypothyroidism Pituitary tumor s/p post surgery at [facility] 2019? Hypertension DM type 2 (diabetes mellitus, type 2) Surgical History History of hysterectomy History of H/O pituitary neoplasm Status post resection Family History Other CAD (coronary artery disease) Social History Smoking and tobacco/nicotine status: never used tobacco/nicotine Second hand smoke exposure: No Alcohol intake: never Substance/Drug Use: never Female Reproductive History: Spontaneous abortions: No Vitals/I&O/Wt Last Vital Signs Temp 98.1 F 07/08/25 08:00 Pulse 92 07/08/25 08:00 Resp 21 H 07/08/25 08:00 BP 115/57 07/08/25 08:00 Pulse Ox 98 07/08/25 08:00 O2 Del Method Nasal Cannula 07/07/25 10:00 O2 Flow Rate 3 07/07/25 10:00 07/07/25 07/08/25 07/08/25 22:59 06:59 14:59 Intake Total 610 / 610 510.85 / 1120.85 Output Total 550 / 550 750 / 1300 Balance 60 / 60 -239.15 / -179.15 Weight last 48 hrs Weight 196 lb 3.382 oz Weight 196 lb 3.382 oz Weight 195 lb Weight 175 lb Physical Exam Narrative: GENERAL: The patient is alert and oriented times three. Not in any acute distress. HEENT: No significant pallor, icterus or lymphadenopathy.Oral cavity: There are no mucous membrane lesions. NECK: Trachea appears to be central. No masses noted. No JVD or thyromegaly appreciated. RESPIRATORY: Chest is symmetrical. No intercostals muscle retraction or any accessory muscle activation. There is no chest wall tenderness. Breath sounds are heard bilaterally. No rales or rhonchi heard. No evidence of any consolidation. BREASTS: Deferred. HEART: The heart sounds are normal. No S3 or S4. No significant murmurs. No pericardial rub ABDOMEN: No vessel pulsations or distention. No tenderness. No organomegaly appreciated. Bowel sounds are normally heard. : Deferred. RECTAL: Deferred. LYMPHATIC: No lymphadenopathy noted in the neck. EXTREMITIES: No edema or cyanosis. No clubbing. MUSCULOSKELETAL: No acute joint deformities or swelling SKIN: There are no significant rashes or ecchymosis NEUROPSYCHIATRIC: The patient is alert and oriented x3. Appears to be in a good mood. No tremors or rigidity noted. Urinary Catheter Management: Bajwa: Cath Placed During This Visit: no Reason for Continuing Indwelling Catheter: Accurate Measurement of Urinary Output in Critically Ill Patients Data 07/08/25 09:11 07/08/25 04:23 Other Labs: Laboratory Last Values WBC 8.71 10^3/uL (3.29-11.43) 07/08/25 09:11 RBC 3.70 10^6/uL (3.85-5.65) L 07/08/25 09:11 Hgb 9.20 g/dL (11.27-16.99) L 07/08/25 09:11 Hct 31.9 % (36-47) L 07/08/25 09:11 MCV 86.2 fl (85-98) 07/08/25 09:11 MCH 24.9 pg (27-33) L 07/08/25 09:11 MCHC 28.8 g/dL (30-55) L 07/08/25 09:11 RDW 15.3 % (12.1-15.1) H 07/08/25 09:11 Plt Count 236 10^3/cmm (157-399) 07/08/25 09:11 MPV 9.2 fL (7.4-10.4) 07/08/25 09:11 Neut % (Auto) 66.6 % 07/08/25 09:11 Lymph % (Auto) 17.3 % 07/08/25 09:11 [place] % (Auto) 11.8 % 07/08/25 09:11 Eos % (Auto) 2.8 % 07/08/25 09:11 Baso % (Auto) 0.7 % 07/08/25 09:11 Neut # (Auto) 5.80 10^3/uL (1.8-7.7) 07/08/25 09:11 Lymph # (Auto) 1.5 10^3/uL (0.8-4.8) 07/08/25 09:11 [place] # (Auto) 1.0 10^3/uL (0.2-0.9) H 07/08/25 09:11 Eos # (Auto) 0.2 10^3/uL (0.0-0.8) 07/08/25 09:11 Baso # (Auto) 0.1 10^3/uL (0.0-0.1) 07/08/25 09:11 Nucleated RBC % (auto) 0.6 % 07/08/25 09:11 Nucleated RBCs # 0.1 /100WBC 07/08/25 09:11 APTT 83.4 SECONDS (23.9-36.7) H 07/08/25 04:23 Sodium 134 mmol/L (136-145) L 07/08/25 04:23 Potassium 4.5 mmol/L (3.5-5.1) 07/08/25 04:23 Chloride 101 mmol/L (98-107) 07/08/25 04:23 Carbon Dioxide 21 mmol/L (22-29) L 07/08/25 04:23 Anion Gap 16.5 (5-19) 07/08/25 04:23 BUN 43 mg/dL (8-23) H 07/08/25 04:23 Creatinine 2.1 mg/dL (0.5-0.9) H 07/08/25 04:23 GFR Calculation Not Reportable 07/08/25 04:23 Glucose 88 mg/dL (65-115) 07/08/25 04:23 POC Glucose 92 mg/dL (70-110) 07/07/25 22:12 Calculated Osmolality 288 mOsm/kg (285-295) 07/08/25 04:23 Lactic Acid 1.8 mmol/L (0.5-2.2) 07/07/25 03:30 Calcium 8.1 mg/dL (8.5-10.5) L 07/08/25 04:23 Iron 11 ug/dL (37-145) L 07/08/25 04:23 TIBC 182 mcg/dl 07/08/25 04:23 % Saturation 6.0 % (20-50) L 07/08/25 04:23 Unsat Iron Binding 171 ug/dL (112-347) 07/08/25 04:23 Ferritin 111 ng/mL (15-150) 07/08/25 04:23 Total Bilirubin 0.2 mg/dL (0.15-1.2) 07/08/25 04:23 AST 19 U/L (0-32) 07/08/25 04:23 ALT 22 U/L (0-33) 07/08/25 04:23 Alkaline Phosphatase 101 U/L (35-105) 07/08/25 04:23 Troponin T Baseline 395 ng/L (0-10) H* 07/07/25 03:30 Troponin T 120 Minute 370.6 ng/L (0-10) H 07/07/25 05:20 Delta Troponin T -24.4 ABS# (0-10) L 07/07/25 05:20 Troponin T Hi Sens 6Hr 352.0 ng/L (0-10) H 07/07/25 09:47 Troponin T Hi Sens 6Hr Delta -43.0 ng/L (0-12) L 07/07/25 09:47 NT-Pro-B Natriuret Pep 39693 pg/mL (0-125) H 07/07/25 03:30 Total Protein 5.9 g/dL (6.6-8.7) L 07/08/25 04:23 Albumin 2.7 g/dL (3.5-5.2) L 07/08/25 04:23 Globulin 3.2 g/dL (1.3-4.6) 07/08/25 04:23 Vitamin B12 1660 pg/mL (232-1245) H 07/08/25 04:23 Folate 11.0 ng/mL (4.8-37.3) 07/08/25 04:23 Procalcitonin 0.94 ng/mL (0-0.5) H 07/07/25 03:30 Urine Color Yellow (Yellow) 07/07/25 03:30 Urine Appearance Cloudy (CLEAR) A 07/07/25 03:30 Urine pH 5.0 (5-7) 07/07/25 03:30 Ur Specific Mccleary 1.024 (1.005-1.030) 07/07/25 03:30 Urine Protein 2+ (Negative) A 07/07/25 03:30 Urine Glucose (UA) 3+ (Normal) H 07/07/25 03:30 Urine Ketones Negative (Negative) 07/07/25 03:30 Urine Blood Negative (Negative) 07/07/25 03:30 Urine Nitrate Negative (Negative) 07/07/25 03:30 Urine Bilirubin Negative (Negative) 07/07/25 03:30 Urine Urobilinogen 1.0 mg/dL (Negative) 07/07/25 03:30 Ur Leukocyte Esterase 1+ (Negative) A 07/07/25 03:30 Urine RBC 3-5 /hpf (0-2) 07/07/25 03:30 Urine WBC 21-50 /hpf (0-5) H 07/07/25 03:30 Ur Squamous Epith Cells 0-5 /hpf (0-5) 07/07/25 03:30 Amorphous Sediment Not Reportable 07/07/25 03:30 Urine Bacteria None seen /hpf (NONE) 07/07/25 03:30 Hyaline Casts 47.56 /lpf 07/07/25 03:30 Urine Yeast 2+ /hpf H 07/07/25 03:30 Influenza A (PCR) Negative (Negative) 07/07/25 18:13 Influenza Type B (PCR) Negative (Negative) 07/07/25 18:13 RSV (PCR) Negative (Negative) 07/07/25 18:13 SARS-CoV-2 (PCR) Negative (Negative) 07/07/25 18:13 Micro: Microbiology 07/07/25 04:37 Blood Culture - Preliminary Blood NEGATIVE TO DATE 07/07/25 04:27 Blood Culture - Preliminary Blood NEGATIVE TO DATE Other data: Echocardiogram from 07/07/2025 Moderately increased left ventricular cavity size. Severely decreased left ventricular systolic function. Left ventricular ejection fraction is estimated at 25 %. There appeared to be mid to distal anterior and apical akinesis, there appeared to be lateral wall hypokinesis, it is suggestive of ischemic heart disease. There is no pericardial effusion. EKG from 07/08/2025 Normal sinus rhythm with nonspecific T wave changes A&P Assessment and plan 1. Acute systolic heart failure: Etiology of the LV systolic dysfunction is not clear. Possibility of coronary ischemia causing this is a consideration. Her multiple wall motion abnormalities by echocardiogram, may suggest underlying coronary disease. Possibility of a Takotsubo syndrome also is a consideration. 2. Elevated troponin: The elevated troponin T, could be related to type II CT. Possibility of type I CT cannot be excluded. Hemodynamically she seems to be stable. 3. Type 2 diabetes mellitus without complication, with long-term current use of insulin: Aggressive management of the diabetes would be appropriate. 4. Acquired hypothyroidism: Patient is on thyroid replacement. This may be continued. 5. Mixed hyperlipidemia: Patient may be continued on the lipid-lowering agents. 6. Primary hypertension: Currently the blood pressure is in the normal range. May continue on the current medications. 7. Pituitary tumor: Patient is scheduled to have surgery at the [facility] in [place]. Plan: Other problems are Acute on chronic kidney disease May consider doing a Myocardial perfusion imaging to further evaluate the coronary status. Patient may require a cardiac catheterization. But because of the abnormal kidney function, I may hold off on this for the time being. Optimize the GDMT Based on the clinical progress, further recommendations will be made Thank you for the opportunity to evaluate this patient and make these recommendations PDMP PDMP Reviewed: Not Reviewed Coding Level of Care Code 98975 Diagnoses Acute systolic heart failure I50.21 Elevated troponin R79.89 Type 2 diabetes mellitus without complication, with long-term current use of insulin E11.9; Z79.4 Diabetes mellitus superintendent container terminal insulin use: with superintendent container terminal use Diabetes mellitus complication status: without complication Acquired hypothyroidism E03.9 Hypothyroidism type: acquired Mixed hyperlipidemia E78.2 Hyperlipidemia type: mixed hyperlipidemia Primary hypertension I10 Hypertension type: primary hypertension Pituitary tumor D49.7
[2025-07-08] MEDS: FUROsemide 10 mg/mL SDV 10mL 60 MG IVP ×2 (09:44→20:27)
[2025-07-08] MEDS: metoprolol succinate ER (24 HR) 25 mg Tablet PO (09:44)
[2025-07-08 12:14] LABS: Partial Thromboplastin Time 51.4 SECONDS (23.9-36.7)
--- NOTE | 2025-07-08 13:46 | P.PN_ITS ---
Subjective 2 Subjective: the patient was seen in the morning, was having shortness of and on 4 to 5 L of nasal cannula Patient complained of left knee pain with swelling. No acute overnight issues Vitals/I&O/Wt Last Vital Signs Temp 98.1 F 07/08/25 08:00 Pulse 79 07/08/25 12:00 Resp 22 H 07/08/25 12:00 BP 96/58 07/08/25 12:00 Pulse Ox 97 07/08/25 12:00 O2 Del Method Nasal Cannula 07/08/25 10:05 O2 Flow Rate 3 07/08/25 10:05 07/07/25 07/08/25 07/08/25 22:59 06:59 14:59 Intake Total 610 / 610 510.85 / 1120.85 310 / 310 Output Total 550 / 550 750 / 1300 Balance 60 / 60 -239.15 / -179.15 310 / 310 Weight last 48 hrs Weight 89 kg Weight 89 kg Weight 88.451 kg Weight 79.379 kg Physical Exam 2 Narrative: General: Alert and oriented, lying comfortably without any distress on oxygen supplementation with 4 to 5 L of nasal cannula HEENT: Normocephalic, atraumatic, grossly unremarkable exam Cardio: normal rate rhythm, normal S1-S2 without any murmurs, rubs, or gallops. Respiratory: Equal air entry with bilateral basal crackles fine on auscultation from mid zone to lower zone with mild wheeze GI: Abdomen soft, nontender, nondistended, normoactive bowel sounds present all 4 quadrants, Neuro: intact cranial nerves motor and sensory and cerebellar/coordination function without any focal neurological deficit Behavior: Appropriate and cooperative Extremities/skin: Adequate palpable pulses, left knee swelling that is tender to touch but not hot and no signs of inflammation or infection, bilateral trace pedal edema, pallor positive. Urinary Catheter Management: Bajwa: Cath Placed During This Visit: no Reason for Continuing Indwelling Catheter: Accurate Measurement of Urinary Output in Critically Ill Patients Data 07/08/25 09:11 07/08/25 04:23 Micro: Microbiology 07/07/25 03:30 Urine Culture - Preliminary Urine,Clean Catch Yeast species 07/07/25 04:37 Blood Culture - Preliminary Blood NEGATIVE TO DATE 07/07/25 04:27 Blood Culture - Preliminary Blood NEGATIVE TO DATE A&P Assessment and plan 1. Acute hypoxemic respiratory failure: Patient found to have high proBNP and echo showed reduced ejection fraction therefore high likelihood of acute hypoxemic respiratory failure secondary to underlying heart failure with reduced ejection fraction Chest x-ray showed possible atelectasis involving a fibrous band on the left side with elevation of the diaphragm and some congestive features. Cardiology consulted and based on her renal functions due to myocardial perfusion scan and to hold off cath at the moment. GDMT to increase the dose of metoprolol to 50mg daily Continue Lasix 60 mg twice daily guided by patient hemodynamics especially MAP to maintain MAP above 65 Regular intake and output monitoring Daily weight base analysis Other possible reason could be pneumonia therefore to continue on ceftriaxone and azithromycin to cover for any possible infection for total 3 to 5 days 2. Acute congestive heart failure: Myocardial perfusion scan Increased dose of metoprolol 25 to 50 mg daily Continue heparin as per protocol to cover any ischemic cardiomyopathy Lasix 60 mg IV twice daily Continue aspirin To resume empagliflozin 25 daily Consider adding Entresto later if hemodynamics stable 3. Pneumonia involving right lung: Suspected pneumonia (right middle lobe consolidation on chest X-ray) : Chest X- ray with right middle lobe consolidation; CTA pending. - Give empiric antibiotics with ceftriaxone and azithromycin. - Obtain sputum culture if possible. - Maintain aspiration precautions. Denies frequent overt aspiration, may be occasionally . Obtain ST evaluation. - Request speech therapy evaluation. - Obtain echocardiogram (with suspected pneumonia). - With pleural effusions, would suspect less likely complicated pneumonia, with possible CHF as below, but consideration may be given to thoracentesis. Due to this we will switch over from Xarelto to heparin drip for now. Monitor for risk of bleeding. Monitor PTTs. 4. Acute kidney injury superimposed on CKD: Renal functions improving currently around baseline 2-2.1 Continue to monitor intake and output Avoid nephrotoxic medications 5. Urinary tract infection: Urine cultures only showed yeast patient is asymptomatic 6. Type 2 diabetes mellitus without complication, with long-term current use of insulin: insulin s/s last hba1c: ~8 to continue on Jardiance home medicine 25 mg daily Blood glucose monitoring Maintain normoglycemia 7. Non-ST elevation [place] (NSTEMI): Continue aspirin and statins Elevated troponins are explained by low high likely type II [place], type I cannot be excluded therefore continue on heparin infusion Myocardial perfusion scan GDMT Telemetry monitoring Monitor intake and output Follow cardiology recommendations 8. Hyperkalemia: Resolved Continue to monitor 9. Effusion, left knee: No previous trauma or bruises noted on the knee CT scan of the left knee showed moderate to large effusion Ortho consulted and to follow the recommendations 10. A-fib: Patient on rivaroxaban and aspirin Currently to continue on heparin infusion and hold rivaroxaban considering patient treatment for ischemic cardiomyopathy with regional wall motion abnormalities and reduced EF Continue statins 11. TIA (transient ischemic attack): Continue aspirin and statins No focal neurological deficit at the moment 12. Mixed hyperlipidemia: Continue statins 13. Acquired hypothyroidism: Continue home dose levothyroxine 88 mcg daily 14. Gastritis: PPI daily Plan: vte: Full dose anticoagulation with heparin GI prophylaxis: PPI daily Cardiac diet Transfer to CSU PDMP PDMP Reviewed: Not Reviewed Attestations 2 Medical Necessity Statement*: Ambika Nichols's hospital stay will require greater than 2 midnights for management for acute congestive heart failure, acute hypoxemic resp failure Time Spent in Patient Care: 16 - 35 minutes (>than 50% of time sp ent in counselling and/or direct pt care on unit) . Other Attestations: Patient condition has been discussed at length with the patient/family, I have independently reviewed the chart labs imaging/diagnostics/EKG. the goals of care and code status with the patient/family/NOK/legal lead customer service representative, and documented accordingly. The patient/family has been informed about the current condition and further plan of care. Agreed with the plan of care and understood without any language barrier. Every effort was made to ensure accuracy of grinding room supervisor. Any obvious errors or omissions should be clarified with the author of the document. Coding Level of Care Code 73699 Diagnoses Acute hypoxemic respiratory failure J96.01 Acute congestive heart failure I50.9 Pneumonia involving right lung J18.9 Lung location: unspecified part of lung Pneumonia type: due to unspecified organism Acute kidney injury superimposed on CKD N17.9; N18.9 Urinary tract infection N39.0 Hematuria presence: without hematuria Urinary tract infection type: site unspecified Type 2 diabetes mellitus without complication, with long-term current use of insulin E11.9; Z79.4 Diabetes mellitus complication status: without complication Diabetes mellitus manager long term care insulin use: with manager long term care use Non-ST elevation [place] (NSTEMI) I21.4 Hyperkalemia E87.5 Effusion, left knee M25.462 A-fib I48.91 TIA (transient ischemic attack) G45.9 Mixed hyperlipidemia E78.2 Hyperlipidemia type: mixed hyperlipidemia Acquired hypothyroidism E03.9 Hypothyroidism type: acquired Gastritis K29.70
--- NOTE | 2025-07-08 17:58 | PC.NURSE ---
Patient received from ICU via bed. Received report from PADMINI Boss
[2025-07-08 18:26] LABS: Partial Thromboplastin Time 71.5 SECONDS (23.9-36.7)
--- NOTE | 2025-07-08 21:18 | ECG_ITS ---
[employer] Test Date: 2025-07-09 Pat Name: Ambika Nichols Department: Room: 103 Gender: Female Lead Engineer: : [id number] Requested By: Nataliya Shaw Order Number: [id number] Hunter MD: Peng Delgado M.D. Interpretive Statements Procedure: A total of 0.4 mg of Lexiscan was infused over 20 seconds. The stress phase was continued for a total of 5 minutes. Sestamibi was injected 20 seconds after the Lexiscan infusion. Findings:The patient's resting blood pressure was 113/63 mmHg with a heart rate 95 bpm. Resting EKG showed normal sinus rhythm with low voltage in the precordial leads, nonspecific mild ST-T wave abnormality and rightward axis. After Lexiscan injection the patient's blood pressure gradually dropped to 101/57 mmHg and the heart rate had no significant change. There were no arrhythmias or ST-T wave changes from baseline. Conclusion: 1. Normal EKG response to Lexiscan infusion 2. No Lexiscan induced chest pain or cardiac arrhythmia. 3. Normal blood pressure and heart rate response. 4. Nuclear myocardial perfusion scan pending; see separate report. Electronically Signed On 07-14-2025 13:14:49 CDT by Peng Delgado M.D. [email or web address]
--- NOTE | 2025-07-08 21:59 | P.CONIM_ITS ---
Providers/Reason For Consult 2 Consulting Physician/Specialty*: Marietta Stinson MD - Orthopedics Reason for Consult*: Left knee effusion Requesting Physician: Izaiah Knutson MD Attending Physician: Izaiah Knutson MD Primary Care Provider: Marcia Flannery MD History of Present Illness History of Present Illness Ambika Nichols is a 70 year old female who presented to the emergency department with altered mental status. The patient was admitted to the ICU from the emergency department with diagnoses of acute hypoxic respiratory failure, pneumonia, acute kidney injury, heart failure, acute hyperkalemia, urinary tract infection, and non-ST elevated [place]. Patient was admitted yesterday, and overnight, she had acute left knee swelling. Upon admission, the patient complained of knee pain. She had a history of neuropathy in her feet and her legs, and it was felt to be hard to assess swelling . I received a call today that the patient was uncomfortable secondary to her swollen knee. I was asked to evaluate for possible aspiration. As we do not know the source for her knee effusion, we would not place cortisone at this time. According to nursing and the attending physician, the patient has no history of fall or injury to this knee since her admission. Review of Systems 2 Narrative: CONSTITUTIONAL: No fever or chills. EYES: No blurring of vision or other visual disturbances lately. ENT: No hoarseness of voice, auditory disturbances or sore throat. CARDIOVASCULAR: As mentioned above. RESPIRATORY: Shortness of breath as mentioned above GASTROINTESTINAL: Episodes of nausea and vomiting, constipation, abdominal pain, etc. GENITOURINARY: Chronic kidney disease as mentioned above INTEGUMENTARY: No skin rashes or history of skin cancer. NEURO: As mentioned above PSYCHIATRIC: No history of psychosis or major depression. HEMATOLOGIC: No bleeding disorders or significant anemia. ENDOCRINE: Uncontrolled blood sugar as mentioned above/functioning pituitary tumor MUSCULOSKELETAL: No recent joint pain or swelling. ALLERGY/IMMUNOLOGY: As mentioned above. Const: Reports: malaise; Denies: fever(s), chills or body aches Eyes: Denies: photophobia ENMT: Denies: throat pain Card: Denies: chest pain, edema, pre-syncope or dyspnea on exertion Resp: Reports: dyspnea and non-productive cough (pleuritic); Denies: change in phlegm color or hemoptysis GI: Denies: abdominal pain, nausea, vomiting, diarrhea, constipation, hematochezia or melena : Denies: flank pain, urinary frequency or hematuria Musc: Denies: back pain, joint swelling or joint redness Skin/Breast: Denies: rash or new lesions Neuro: Denies: headache(s) or confusion Medications/Allergies Home Medications ?Medication ?Instructions ?Recorded ?Confirmed ?Last Taken ?Type blood-glucose transmitter (Dexcom #1 ea 10/19/2407/07 Unknown Rx G6 Transmitter device) 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 Instructions: Follow-up with your primary care doctor. Creatinine dual almost at baseline will hold hydrochlorothiazide for now until you follow-up with your PCP levothyroxine 88 mcg tablet 88 mcg PO DAILY 90 days #9 0 tabs 02/23/25 07/07/25 07/06/25 Rx lisinopril 40 mg tablet 40 mg PO DAILY 90 days #90 t abs 02/23/25 07/07/25 06/02/25 Rx Held on 07/05/25. Instructions: Creatinine is almost at baseline but still up we will hold till he follow-up with your PCP with subsequent chemistry metoprolol succinate 50 mg 50 mg PO DAILY 90 days #90 tabs 02/23/25 07/07/25 07/06/25 Rx tablet,extended release 24 hr rivaroxaban 20 mg tablet (Xarelto) 20 mg PO DAILY 90 d ays #90 tabs 02/23/25 07/07/25 05/31/25 Rx baclofen 5 mg tablet 5 mg PO BID PRN muscle spasm #60 03/16/25 07/07/25 06/02/25 Rx tabs amlodipine 10 mg tablet 10 mg PO DAILY PRN bp 90 day s #90 05/13/25 07/07/25 07/06/25 Rx tabs aspirin 81 mg tablet 81 mg PO DAILY 05/24/2506/1707/06/25 History enoxaparin 80 mg/0.8 mL 80 mg (0.8 mL) SUBCUT DIR ECTED 05/27/25 07/07/25 Unknown Rx subcutaneous syringe (Lovenox) #4.8 mL desvenlafaxine succinate 50 mg 50 mg PO DAILY 06/04/25 07/07/25 07/06/25 History tablet,extended release 24 hr ondansetron 4 mg disintegrating 4 mg PO Q6H PRN nausea and 06/04/25 07/07/25 Unknown Rx tablet vomiting #14 tabs blood-glucose sensor (Dexcom G7 #3 ea 06/28/25 5 Unknown Rx Sensor device) Allergies Allergy/AdvReac Type Severity Reaction Status Date / Time No Known Allergies Allergy Verified 05/26/25 10:15 Current Medications Generic Name Dose Route Start Last Admin Trade Name Freq PRN Reason Stop Dose Admin Aspirin 81 mg 07/08/25 05:00 07/08/25 05:09 Aspirin 81 Mg Ec Tablet PO 81 mg DAILY LIZETT Administration Ceftriaxone Sodium 1,000 mg 07/08/25 05:00 07/08/25 05:08 Ceftriaxone 1,000 Mg Sdv IVP 1,000 mg DAILY LIZETT Administration Protocol Desvenlafaxine 50 mg 07/08/25 05:00 07/08/25 05:09 Desvenlafaxine 50 Mg Tablet PO 50 mg DAILY LIZETT Administration Furosemide 60 mg 07/08/25 09:00 07/08/25 20:27 Furosemide 10 Mg/Ml Sdv 10ml IVP 60 mg Q12H LIZETT Administration Azithromycin 500 mg/ Sodium 250 mls @ 250 mls/hr 07/07/25 08:43 07/08/25 10:44 Chloride IV Infused Q24H LIZETT Infusion Protocol Heparin Sodium/Sodium Chloride 25,000 unit in 500 mls @ 21.228 mls/hr 07/07/25 22:00 07/08/25 18:46 Heparin Drip IV 10.74 unit/kg/hr CONT LIZETT 19 mls/hr Protocol Titration 12 UNIT/KG/HR Insulin Human Lispro 0 unit 07/08/25 18:00 07/08/25 20:31 Insulin Lispro 100 Unit/1 Ml SUBCUT Not Given WM&BEDTIME [facility] Protocol Levothyroxine Sodium 88 mcg 07/08/25 05:00 07/08/25 05:09 Levothyroxine 88 Mcg Tablet PO 88 mcg DAILY LIZETT Administration Tramadol HCl 50 mg 07/08/25 02:55 07/08/25 20:44 Tramadol 50 Mg Tablet PO 50 mg BID PRN Administration MODERATE PAIN PFSH Acute 2 PFSH: Medical History CKD (chronic kidney disease) Pancreatic mass A-fib Mixed hyperlipidemia Thrombocytopenia Hyperglycemia Vomiting Diabetic neuropathy Esophageal thickening Elevated troponin Anemia Acute kidney injury Menopausal symptoms Relates she takes antidepressant for this DJD (degenerative joint disease) Acquired hypothyroidism Pituitary tumor s/p post surgery at [facility] 2019? Hypertension Type 2 diabetes mellitus without complication, with long-term current use of insulin Surgical History History of hysterectomy History of H/O pituitary neoplasm Status post resection Family History Other CAD (coronary artery disease) Social History Smoking and tobacco/nicotine status: never used tobacco/nicotine Second hand smoke exposure: No Alcohol intake: never Substance/Drug Use: never Female Reproductive History: Spontaneous abortions: No Dietary Habits: Current diet type/program: regular and diabetic Caffeine: Y es Caffeine intake frequency: carbonated beverages Exercise: Physical activity functional status: independent ambulation and normal ROM and activity Safety: Seatbelt use: always Home Safety: Working smoke detector in home: Yes Personal Safety: Do you feel safe at home: Yes Victim of physical abuse: No Victim of emotional abuse: No Victim of sexual abuse: No Would you like help information on resources?: No Vitals/I&O/Wt Last Vital Signs Temp 97.9 F 07/08/25 19:21 Pulse 89 07/08/25 19:21 Resp 26 H 07/08/25 19:21 BP 120/67 07/08/25 19:21 Pulse Ox 96 07/08/25 19:21 O2 Del Method Nasal Cannula 07/08/25 19:21 O2 Flow Rate 3 07/08/25 19:21 07/08/25 07/08/25 07/08/25 06:59 14:59 22:59 Intake Total 510.85 / 1120.85 430 / 430 246.05 / 676.05 Output Total 750 / 1300 Balance -239.15 / -179.15 430 / 430 246.05 / 676.05 Weight last 48 hrs Weight 196 lb 3.382 oz Weight 196 lb 3.382 oz Weight 195 lb Weight 175 lb Physical Exam 2 Const: COMMON NORMALS: no acute distress, average body habitus, patient oriented x3 and alert GENERAL APPEARANCE: cooperative and comfortable O RIENTATION/CONSCIOUSNESS: Yes awake HENMT: COMMON NORMALS: normocephalic and atraumatic HEAD & SCALP: n ormocephalic and atraumatic Eye: GENERAL EYE: appearance normal, both eyes and all related structures Chest: COMMONS NORMALS: normal inspection of the chest Resp: COMMON NORMALS: normal respiratory effort EFFORT & INSPECTION: Yes able to speak in complete sentences and Yes symmetric chest movement Extremity: LEFT LOWER EXTREMITY: Yes knee joint (Knee is swollen with no erythema) Left knee: Yes inspection (No evidence of DVT or cellulitis), Yes palpation (Tender to palpation), Yes ROM (Not evaluated) and Yes neurovascular exam (Intact distally) Neuro: COMMON NORMALS: patient oriented x3 SENSORIUM/ORIENTATION: Yes alert Psych: COMMON NORMALS: mental status grossly normal APPEARANCE: Yes grossly normal ATTITUDE: Yes calm and Yes engaged ATTENTION/CONCENTRATION: Yes attention grossly intact Skin: COMMON NORMALS: no rashes or lesions noted GENERAL SKIN EXAM: no rashes or lesions noted Urinary Catheter Management: Bajwa: Cath Placed During This Visit: no Reason for Continuing Indwelling Catheter: Acute Urinary Retention or Obstruction Data 07/09/25 09:23 07/09/25 09:23 Micro: Microbiology 07/07/25 03:30 Urine Culture - Preliminary Urine,Clean Catch Yeast species 07/07/25 04:37 Blood Culture - Preliminary Blood NEGATIVE TO DATE 07/07/25 04:27 Blood Culture - Preliminary Blood NEGATIVE TO DATE Other CT: My impression: I reviewed the images with Dr. Agustin, the reading radiologist. Radiologist's impression: Date of Service: 07/08/25 Procedure(s): CT knee LT wo con* [id number] Accession Number(s): [id number] Report Number: [id number] FINDINGS: Moderate tricompartment arthritis with hypertrophic changes along the joint line. Osteopenia. Vascular calcification. Moderate suprapatellar effusion. Hypertrophic patella. Mild soft tissue edema about the joint line. No evidence of osteomyelitis. IMPRESSION: 1. Moderate to large suprapatellar effusion. 2. No evidence of osteomyelitis Dictated By: Felix Agustin MD Signed By: Felix Agustin MD A&P Assessment and plan 1. Effusion, left knee: As noted above, this patient presented to the emergency department with altered mental state. Initially, history was that the patient did not have symptoms in this knee, but she describes having symptoms both in her right and left knee. Previously, it was the right knee that was the primary problem, and this knee was recently aspirated when the patient was hospitalized at [facility] in [place]. The swelling has been present, but it worsened during this hospitalization. I was asked to see and evaluate the patient for a left knee effusion. There is no erythema to the knee. It is tender to palpation as would be expected with the degree of knee effusion. Imaging studies are reviewed as noted above. Plan will be for aspiration left knee with cell count, crystals, Gram stain, and aerobic anaerobic cultures. The patient underwent knee aspiration after discussion and consent was obtained. The knee was aspirated for 60 cc of slightly turbid fluid. This procedure is documented under a separate note. PDMP PDMP Reviewed: Not Reviewed Coding Level of Care Code Acute Code for Chg Fwd Diagnoses Effusion, left knee M25.462
--- NOTE | 2025-07-08 23:23 | PM.ACPR ---
Procedure/Consent Consent: Consent for Procedure: Consent obtained from patient, Risks & Benefits reviewed and Agrees to proceed with procedure Acute Procedures Joint Aspiration/Injection: Joint Asp./Inject. 1: Time out performed: Yes Side of body: left Joint aspirated: knee Ultrasound guidance: No Skin prep: Povidone-Iodine1% Needle size used: 18G Fluid obtained: turbid Total fluid obtained (ml): 60 Patient tolerated procedure: well Complications: none
[2025-07-08] MEDS: heparin drip 25,000 UNIT/500 ML PREMIX 19 UNIT IV (23:35)
[2025-07-09] VITALS (29 sets, daily range): BP systolic 104–124; BP diastolic 56–69; PULSE 85–100; RESP 16–27; TEMP 36.4–36.8; O2SAT 89–99; BMI 31.8
[2025-07-09 00:14] LABS: RBC Synovial Fluid 17 10^3/uL (0-0); Synovial Fluid Mononuclear # 3.500 10^3/uL; Synovial Fluid Mononuclear % 5.500 %; Synovial Fluid Polynuclear # 60.281 10^3/uL; Synovial Fluid Polynuclear % 94.500 %
[2025-07-09 00:32] LABS: Color Synovial Fluid PALE YELLOW (PALE YELLOW); PATH Referal YES
[2025-07-09 00:38] LABS: Crystals, Fluid SENT
[2025-07-09 01:44] LABS: Platelet Count 280 10^3/cmm (157-399)
[2025-07-09 02:01] LABS: Partial Thromboplastin Time 65.2 SECONDS (23.9-36.7)
[2025-07-09] MEDS: metoprolol succinate ER (24 HR) 50 mg Tablet PO (05:29)
[2025-07-09] MEDS: pantoprazole 40 mg SDV IVP (05:29)
[2025-07-09] MEDS: cefTRIAXone 1,000 mg SDV 1000 MG IVP (05:29)
[2025-07-09] MEDS: DAPAGLIFLOZIN 10 MG TABLET PO (05:29)
--- NOTE | 2025-07-09 08:14 | PC.SOCIAL ---
IMM Update pg 2 of IMM Updated and reviewed w/ patient. Copy provided and copy dated, initialed and placed in chart.
--- NOTE | 2025-07-09 08:46 | PHA.VACGOAL ---
Vancomycin Goal - Goal Vancomycin Goal:: 15-20 mg/L Vancomycin Indication:: Other - Therapy Current therapy:: Azithromycin Day of therpy:: Day []of [] . Actual body weight (kg): 203 lb 0.732 oz - Data Labs: WBC 8.71 10^3/uL (3.29-11.43) 07/08/25 09:11 RBC 3.70 10^6/uL (3.85-5.65) L 07/08/25 09:11 Hgb 9.20 g/dL (11.27-16.99) L 07/08/25 09:11 Hct 31.9 % (36-47) L 07/08/25 09:11 MCV 86.2 fl (85-98) 07/08/25 09:11 MCH 24.9 pg (27-33) L 07/08/25 09:11 MCHC 28.8 g/dL (30-55) L 07/08/25 09:11 RDW 15.3 % (12.1-15.1) H 07/08/25 09:11 Sodium 134 mmol/L (136-145) L 07/08/25 04:23 Potassium 4.5 mmol/L (3.5-5.1) 07/08/25 04:23 Chloride 101 mmol/L (98-107) 07/08/25 04:23 Carbon Dioxide 21 mmol/L (22-29) L 07/08/25 04:23 Anion Gap 16.5 (5-19) 07/08/25 04:23 BUN 43 mg/dL (8-23) H 07/08/25 04:23 Creatinine 2.1 mg/dL (0.5-0.9) H 07/08/25 04:23 GFR Calculation Not Reportable 07/08/25 04:23 Last dialysis session:: N/A Treatment plan:: new consult Regimen:: LOADING DOSE OF 2000 MG X 1. PLAN TO PULSE DOSE DUE TO RENAL FUNCTION. Follow up:: TROUGH 07/10 @0900
[2025-07-09] MEDS: FUROsemide 10 mg/mL SDV 10mL 60 MG IVP ×2 (09:34→20:59)
[2025-07-09 09:39] LABS: Hematocrit 33.3 % (36-47); Hemoglobin 9.00 g/dL (11.27-16.99); Mean Corpuscular HGB Conc 27.0 g/dL (30-55); Mean Corpuscular Hemoglobin 25.1 pg (27-33); Mean Corpuscular Volume 92.8 fl (85-98); Nucleated Red Blood Cells % 0.3 %; Platelet Count 302 10^3/cmm (157-399); Red Blood Count 3.59 10^6/uL (3.85-5.65); White Blood Count 10.53 10^3/uL (3.29-11.43)
--- NOTE | 2025-07-09 09:40 | P.PN_ITS ---
Subjective 2 Subjective: Patient had a Myocardial perfusion imaging today. She was found to have moderate to large area of fixed defect involving the distribution of the right coronary artery/Left anterior descending artery. Possible small areas of anamaria- infarction ischemia. She is remaining chest pain-free. Medications: Medication Review Details: Current Medications Acetaminophen (Acetaminophen 325 Mg Tablet) 650 mg PO Q6H PRN PRN Reason: Mild/Mod Pain Or Temp >/= 101 Last Admin: 07/08/25 23:31 Dose: 650 mg Aminophylline (Aminophylline 25 Mg/Ml Sdv 20 Ml) 25 mg IVP Q2M PRN PRN Reason: see dose instructions Stop: 07/10/25 06:35 Aspirin (Aspirin 81 Mg Ec Tablet) 81 mg PO DAILY [facility] Last Admin: 07/09/25 05:29 Dose: 81 mg Baclofen (Baclofen 10 Mg Tablet) 5 mg PO BID PRN PRN Reason: muscle spasm Ceftriaxone Sodium (Ceftriaxone 2,000 Mg Sdv) 2,000 mg IVP Q24H [facility] Desvenlafaxine (Desvenlafaxine 50 Mg Tablet) 50 mg PO DAILY [facility] Last Admin: 07/09/25 05:29 Dose: 50 mg Furosemide (Furosemide 10 Mg/Ml Sdv 10ml) 60 mg IVP Q12H [facility] Last Admin: 07/08/25 20:27 Dose: 60 mg Glucagon (Glucagon 1 Mg/Ml Kit 1 Ml) 1 mg IM ONCE PRN; Protocol PRN Reason: Adult Acute Hypoglycemia Nursing Prot. Heparin Sodium (Porcine) (Heparin 5,000 Unit/Ml Inj 1 Ml) 0 unit IVP PRN PRN; Protocol PRN Reason: Heparin Weight Based Protocol -Subsequent Bolus Azithromycin 500 mg/ Sodium (Chloride) 250 mls @ 250 mls/hr IV Q24H [facility]; Protocol Last Infusion: 07/08/25 10:44 Dose: Infused Heparin Sodium/Sodium Chloride (Heparin Drip) 25,000 unit in 500 mls @ 21.228 mls/hr IV CONT [facility]; Protocol Last Admin: 07/08/25 23:35 Dose: 10.74 unit/kg/hr, 19 mls/hr Dextrose (D5w) 500 mls @ 0 mls/hr IV ONCE PRN; Protocol PRN Reason: Adult Acute Hypoglycemia Prot Dextrose (D10w) 125 mls @ 750 mls/hr IV PRN PRN; Protocol PRN Reason: Adult Acute Hypoglycemia Nursing Protocol Dextrose (D10w) 250 mls @ 1,000 mls/hr IV PRN PRN; Protocol PRN Reason: Adult Acute Hypoglycemia Nursing Protocol Vancomycin HCl (Vancocin) 2,000 mg in 400 mls @ 200 mls/hr IV ONCE ONE Stop: 07/09/25 10:59 Insulin Human Lispro (Insulin Lispro 100 Unit/1 Ml) 0 unit SUBCUT WM&BEDTIME [facility]; Protocol Last Admin: 07/09/25 09:30 Dose: Not Given Levothyroxine Sodium (Levothyroxine 88 Mcg Tablet) 88 mcg PO DAILY [facility] Last Admin: 07/09/25 05:29 Dose: 88 mcg Metoprolol Succinate (Metoprolol Succinate Er (24 Hr) 50 Mg Tablet) 50 mg PO DAILY [facility] Last Admin: 07/09/25 05:29 Dose: 50 mg Nitroglycerin (Nitroglycerin 0.4 Mg Sublingual Tablet) 0.4 mg SUBLINGUAL Q5M PRN PRN Reason: CHEST PAIN Stop: 07/10/25 06:35 Ondansetron HCl (Ondansetron 2 Mg/Ml Sdv 2 Ml) 4 mg IVP Q8H PRN PRN Reason: vomiting, or N/V if npo Ondansetron HCl (Ondansetron 2 Mg/Ml Sdv 2 Ml) 4 mg IVP Q2M PRN PRN Reason: NAUSEA Pantoprazole Sodium (Pantoprazole 40 Mg Sdv) 40 mg IVP DAILY [facility] Last Admin: 07/09/25 05:29 Dose: 40 mg Tramadol HCl (Tramadol 50 Mg Tablet) 50 mg PO BID PRN PRN Reason: MODERATE PAIN Last Admin: 07/08/25 20:44 Dose: 50 mg Vancomycin HCl (Vancomycin 1,000 Mg Sdv (Pharmacy Mix)) 0 mg XX PRN PRN PRN Reason: Pharmacy to Dose Vitals/I&O/Wt Last Vital Signs Temp 97.6 F 07/09/25 08:00 Pulse 93 07/09/25 08:00 Resp 16 07/09/25 08:00 BP 124/66 07/09/25 08:00 Pulse Ox 95 07/09/25 03:16 O2 Del Method Nasal Cannula 07/09/25 03:16 O2 Flow Rate 3 07/08/25 19:21 1007/09/25 07/09/25 22:59 06:59 14:59 Intake Total 246.05 / 676.05 91.517 / 767.567 Output Total 250 / 250 Balance 246.05 / 676.05 -158.483 / 517.567 Weight last 48 hrs Weight 203 lb 0.732 oz Weight 196 lb 3.382 oz Weight 196 lb 3.382 oz Physical Exam 2 Narrative: GENERAL: The patient is alert and oriented times three. Not in any acute distress. HEENT: No significant pallor, icterus or lymphadenopathy.Oral cavity: There are no mucous membrane lesions. NECK: Trachea appears to be central. No masses noted. No JVD or thyromegaly appreciated. RESPIRATORY: Chest is symmetrical. No intercostals muscle retraction or any accessory muscle activation. There is no chest wall tenderness. Breath sounds are heard bilaterally. No rales or rhonchi heard. No evidence of any consolidation. BREASTS: Deferred. HEART: The heart sounds are normal. No S3 or S4. No significant murmurs. No pericardial rub ABDOMEN: No vessel pulsations or distention. No tenderness. No organomegaly appreciated. Bowel sounds are normally heard. : Deferred. RECTAL: Deferred. LYMPHATIC: No lymphadenopathy noted in the neck. EXTREMITIES: No edema or cyanosis. No clubbing. MUSCULOSKELETAL: No acute joint deformities or swelling SKIN: There are no significant rashes or ecchymosis NEUROPSYCHIATRIC: The patient is alert and oriented x3. Appears to be in a good mood. No tremors or rigidity noted. Urinary Catheter Management: Bajwa: Cath Placed During This Visit: no Reason for Continuing Indwelling Catheter: Acute Urinary Retention or Obstruction Data 07/09/25 09:23 07/09/25 09:23 Other Labs: Laboratory Last Values WBC 8.71 10^3/uL (3.29-11.43) 07/08/25 09:11 RBC 3.70 10^6/uL (3.85-5.65) L 07/08/25 09:11 Hgb 9.20 g/dL (11.27-16.99) L 07/08/25 09:11 Hct 31.9 % (36-47) L 07/08/25 09:11 MCV 86.2 fl (85-98) 07/08/25 09:11 MCH 24.9 pg (27-33) L 07/08/25 09:11 MCHC 28.8 g/dL (30-55) L 07/08/25 09:11 RDW 15.3 % (12.1-15.1) H 07/08/25 09:11 Plt Count 280 10^3/cmm (157-399) 07/09/25 01:05 MPV 9.2 fL (7.4-10.4) 07/08/25 09:11 Neut % (Auto) 66.6 % 07/08/25 09:11 Lymph % (Auto) 17.3 % 07/08/25 09:11 [place] % (Auto) 11.8 % 07/08/25 09:11 Eos % (Auto) 2.8 % 07/08/25 09:11 Baso % (Auto) 0.7 % 07/08/25 09:11 Neut # (Auto) 5.80 10^3/uL (1.8-7.7) 07/08/25 09:11 Lymph # (Auto) 1.5 10^3/uL (0.8-4.8) 07/08/25 09:11 [place] # (Auto) 1.0 10^3/uL (0.2-0.9) H 07/08/25 09:11 Eos # (Auto) 0.2 10^3/uL (0.0-0.8) 07/08/25 09:11 Baso # (Auto) 0.1 10^3/uL (0.0-0.1) 07/08/25 09:11 Nucleated RBC % (auto) 0.6 % 07/08/25 09:11 Nucleated RBCs # 0.1 /100WBC 07/08/25 09:11 Differential Comment Cancelled 07/08/25 23:06 APTT 65.2 SECONDS (23.9-36.7) H 07/09/25 01:05 Sodium 134 mmol/L (136-145) L 07/08/25 04:23 Potassium 4.5 mmol/L (3.5-5.1) 07/08/25 04:23 Chloride 101 mmol/L (98-107) 07/08/25 04:23 Carbon Dioxide 21 mmol/L (22-29) L 07/08/25 04:23 Anion Gap 16.5 (5-19) 07/08/25 04:23 BUN 43 mg/dL (8-23) H 07/08/25 04:23 Creatinine 2.1 mg/dL (0.5-0.9) H 07/08/25 04:23 GFR Calculation Not Reportable 07/08/25 04:23 Glucose 88 mg/dL (65-115) 07/08/25 04:23 POC Glucose 113 mg/dL (70-110) H 07/09/25 06:04 Calculated Osmolality 288 mOsm/kg (285-295) 07/08/25 04:23 Lactic Acid 1.8 mmol/L (0.5-2.2) 07/07/25 03:30 Calcium 8.1 mg/dL (8.5-10.5) L 07/08/25 04:23 Iron 11 ug/dL (37-145) L 07/08/25 04:23 TIBC 182 mcg/dl 07/08/25 04:23 % Saturation 6.0 % (20-50) L 07/08/25 04:23 Unsat Iron Binding 171 ug/dL (112-347) 07/08/25 04:23 Ferritin 111 ng/mL (15-150) 07/08/25 04:23 Total Bilirubin 0.2 mg/dL (0.15-1.2) 07/08/25 04:23 AST 19 U/L (0-32) 07/08/25 04:23 ALT 22 U/L (0-33) 07/08/25 04:23 Alkaline Phosphatase 101 U/L (35-105) 07/08/25 04:23 Troponin T Baseline 395 ng/L (0-10) H* 07/07/25 03:30 Troponin T 120 Minute 370.6 ng/L (0-10) H 07/07/25 05:20 Delta Troponin T -24.4 ABS# (0-10) L 07/07/25 05:20 Troponin T Hi Sens 6Hr 352.0 ng/L (0-10) H 07/07/25 09:47 Troponin T Hi Sens 6Hr Delta -43.0 ng/L (0-12) L 07/07/25 09:47 NT-Pro-B Natriuret Pep 30696 pg/mL (0-125) H 07/07/25 03:30 Total Protein 5.9 g/dL (6.6-8.7) L 07/08/25 04:23 Albumin 2.7 g/dL (3.5-5.2) L 07/08/25 04:23 Globulin 3.2 g/dL (1.3-4.6) 07/08/25 04:23 Vitamin B12 1660 pg/mL (232-1245) H 07/08/25 04:23 Folate 11.0 ng/mL (4.8-37.3) 07/08/25 04:23 Procalcitonin 0.94 ng/mL (0-0.5) H 07/07/25 03:30 Urine Color Yellow (Yellow) 07/07/25 03:30 Urine Appearance Cloudy (CLEAR) A 07/07/25 03:30 Urine pH 5.0 (5-7) 07/07/25 03:30 Ur Specific [place] 1.024 (1.005-1.030) 07/07/25 03:30 Urine Protein 2+ (Negative) A 07/07/25 03:30 Urine Glucose (UA) 3+ (Normal) H 07/07/25 03:30 Urine Ketones Negative (Negative) 07/07/25 03:30 Urine Blood Negative (Negative) 07/07/25 03:30 Urine Nitrate Negative (Negative) 07/07/25 03:30 Urine Bilirubin Negative (Negative) 07/07/25 03:30 Urine Urobilinogen 1.0 mg/dL (Negative) 07/07/25 03:30 Ur Leukocyte Esterase 1+ (Negative) A 07/07/25 03:30 Urine RBC 3-5 /hpf (0-2) 07/07/25 03:30 Urine WBC 21-50 /hpf (0-5) H 07/07/25 03:30 Ur Squamous Epith Cells 0-5 /hpf (0-5) 07/07/25 03:30 Amorphous Sediment Not Reportable 07/07/25 03:30 Urine Bacteria None seen /hpf (NONE) 07/07/25 03:30 Hyaline Casts 47.56 /lpf 07/07/25 03:30 Urine Yeast 2+ /hpf H 07/07/25 03:30 Fluid Color Cancelled 07/08/25 23:06 Fluid Appearance Cancelled 07/08/25 23:06 Fluid WBC Cancelled 07/08/25 23:06 Fluid RBC Cancelled 07/08/25 23:06 Fluid Tot Cell Count Cancelled 07/08/25 23:06 Fld Polynuclear WBCs # Cancelled 07/08/25 23:06 Fld Polynuclear WBCs % Cancelled 07/08/25 23:06 Fl Mononucl WBCs #(Auto) Cancelled 07/08/25 23:06 Fl Mononuclear % Auto Cancelled 07/08/25 23:06 Fluid Crystals Sent 07/08/25 23:06 Fld Crystal Laterality Cancelled 07/08/25 23:06 Synovial Color Cancelled 07/08/25 23:06 Synovial Color Pale yellow (PALE YELLOW) 07/08/25 23:06 Synovial Appearance Cancelled 07/08/25 23:06 Synovial Appearance Cloudy (CLEAR) 07/08/25 23:06 Synovial WBC 58205 /uL (0-150) H 07/08/25 23:06 Synovial WBC Cancelled 07/08/25 23:06 Synovial RBC 17 10^3/uL (0-0) H 07/08/25 23:06 Synovial RBC Cancelled 07/08/25 23:[address] Cancelled 07/08/25 23:06 Synovial Mononuclear 3.500 10^3/uL 07/08/25 23:06 Synovial Mononuclear Cancelled 07/08/25 23:06 Synov Polynuclear WBCs 60.281 10^3/uL 07/08/25 23:06 Synov Polynuclear WBCs Cancelled 07/08/25 23:06 Synovial Other Cells Cancelled 07/08/25 23:06 Synovial Other Cells Not Reportable 07/08/25 23:06 Synovial Polynuclear % 94.500 % 07/08/25 23:06 Synovial Polynuclear % Cancelled 07/08/25 23:06 Synovial Mononuclear % 5.500 % 07/08/25 23:06 Synovial Mononuclear % Cancelled 07/08/25 23:06 Influenza A (PCR) Negative (Negative) 07/07/25 18:13 Influenza Type B (PCR) Negative (Negative) 07/07/25 18:13 RSV (PCR) Negative (Negative) 07/07/25 18:13 SARS-CoV-2 (PCR) Negative (Negative) 07/07/25 18:13 Path Cons w/Slide Cancelled 07/08/25 23:06 Path Cons w/Slide Yes 07/08/25 23:06 Micro: Microbiology 07/07/25 03:30 Urine Culture - Preliminary Urine,Clean Catch Yeast species 07/07/25 04:37 Blood Culture - Preliminary Blood NEGATIVE TO DATE 07/07/25 04:27 Blood Culture - Preliminary Blood NEGATIVE TO DATE A&P Assessment and plan 1. Acute systolic heart failure: Based on the perfusion scan, most likely this patient had myocardial infarction causing the severe LV systolic dysfunction. Since the perfusion scan revealed no significant ischemia, it may be appropriate to maximize the medical treatment 2. Elevated troponin: The elevated troponin T, could be related to type II GA. Possibility of type I GA cannot be excluded. Hemodynamically she seems to be stable. Because of anemia, I may keep her on a baby aspirin 1 tablet a day. 3. Ischemic cardiomyopathy: In view of the severe LV dysfunction, patient carries a higher risk for malignant ventricular arrhythmia. Discussed about prophylactic external defibrillator. Patient has decided not to have it. She seems to understand implications. 4. Type 2 diabetes mellitus without complication, with long-term current use of insulin: Aggressive management of the diabetes would be appropriate. 5. Acquired hypothyroidism: Patient is on thyroid replacement. This may be continued. 6. Mixed hyperlipidemia: Patient may be continued on the lipid-lowering agents. 7. Primary hypertension: Currently the blood pressure is in the normal range. May continue on the current medications. 8. Pituitary tumor: Patient is scheduled to have surgery at the [facility] in [place]. Plan: Other problems are Acute on chronic kidney disease At this point, optimizing the GDMT will be the plan of action. Discontinue the lisinopril and start the patient on losartan 25 mg p.o. daily. If she is able to tolerate this, this may be transition to Entresto. Also may start her on Lipitor 40 mg p.o. daily. Lipid profile on the blood in the lab Other medications may be continued. Discussed with Dr. Knutson PDMP PDMP Reviewed: Not Reviewed Attestations 2 Medical Necessity Statement*: Deferred to the hospitalist service Coding Level of Care Code Acute Code for Chg Fwd Diagnoses Acute systolic heart failure I50.21 Elevated troponin R79.89 Ischemic cardiomyopathy I25.5 Type 2 diabetes mellitus without complication, with long-term current use of insulin E11.9; Z79.4 Diabetes mellitus complication status: without complication Diabetes mellitus alf insulin use: with alf use Acquired hypothyroidism E03.9 Hypothyroidism type: acquired Mixed hyperlipidemia E78.2 Hyperlipidemia type: mixed hyperlipidemia Primary hypertension I10 Hypertension type: primary hypertension Pituitary tumor D49.7
[2025-07-09] MEDS: cefTRIAXone 2,000 mg SDV 2000 MG IVP (09:41)
[2025-07-09 09:52] LABS: Partial Thromboplastin Time 50.3 SECONDS (23.9-36.7)
[2025-07-09 09:56] LABS: Alanine Aminotransferase 17 U/L (0-33); Albumin Level 2.7 g/dL (3.5-5.2); Alkaline Phosphatase 115 U/L (35-105); Anion Gap 19.1 (5-19); Aspartate Amino Transferase 16 U/L (0-32); Blood Urea Nitrogen 45 mg/dL (8-23); Calcium 8.5 mg/dL (8.5-10.5); Carbon Dioxide 20 mmol/L (22-29); Chloride 97 mmol/L (98-107); Creatinine Clr Calc Pharmacy 28.2119; Globulin 4.1 g/dL (1.3-4.6); Glucose 105 mg/dL (65-115); Magnesium 2.4 mg/dL (1.7-2.3); Osmolality Calculated 284 mOsm/kg (285-295); Potassium 5.1 mmol/L (3.5-5.1); Sodium 131 mmol/L (136-145); Total Protein 6.8 g/dL (6.6-8.7)
[2025-07-09] MEDS: ondansetron 2 mg/ML SDV 2 mL 4 MG IVP (10:08)
--- NOTE | 2025-07-09 13:27 | PM.PN ---
Subjective Subjective: the patient was seen in the morning, relatively better and on 3 to 4 L of nasal cannula oxygen supplementation S/p left knee arthrocentesis showing possible infective element but no signs of genna sepsis or cellulitis. Range of motion is better No acute overnight issues Medications: Medication Review Details: Current Medications Acetaminophen (Acetaminophen 325 Mg Tablet) 650 mg PO Q6H PRN PRN Reason: Mild/Mod Pain Or Temp >/= 101 Last Admin: 07/08/25 23:31 Dose: 650 mg Aminophylline (Aminophylline 25 Mg/Ml Sdv 20 Ml) 25 mg IVP Q2M PRN PRN Reason: see dose instructions Stop: 07/10/25 06:35 Aspirin (Aspirin 81 Mg Ec Tablet) 81 mg PO DAILY [facility] Last Admin: 07/09/25 05:29 Dose: 81 mg Baclofen (Baclofen 10 Mg Tablet) 5 mg PO BID PRN PRN Reason: muscle spasm Ceftriaxone Sodium (Ceftriaxone 2,000 Mg Sdv) 2,000 mg IVP Q24H [facility] Desvenlafaxine (Desvenlafaxine 50 Mg Tablet) 50 mg PO DAILY [facility] Last Admin: 07/09/25 05:29 Dose: 50 mg Furosemide (Furosemide 10 Mg/Ml Sdv 10ml) 60 mg IVP Q12H [facility] Last Admin: 07/08/25 20:27 Dose: 60 mg Glucagon (Glucagon 1 Mg/Ml Kit 1 Ml) 1 mg IM ONCE PRN; Protocol PRN Reason: Adult Acute Hypoglycemia Nursing Prot. Heparin Sodium (Porcine) (Heparin 5,000 Unit/Ml Inj 1 Ml) 0 unit IVP PRN PRN; Protocol PRN Reason: Heparin Weight Based Protocol -Subsequent Bolus Azithromycin 500 mg/ Sodium (Chloride) 250 mls @ 250 mls/hr IV Q24H [facility]; Protocol Last Infusion: 07/08/25 10:44 Dose: Infused Heparin Sodium/Sodium Chloride (Heparin Drip) 25,000 unit in 500 mls @ 21.228 mls/hr IV CONT [facility]; Protocol Last Admin: 07/08/25 23:35 Dose: 10.74 unit/kg/hr, 19 mls/hr Dextrose (D5w) 500 mls @ 0 mls/hr IV ONCE PRN; Protocol PRN Reason: Adult Acute Hypoglycemia Prot Dextrose (D10w) 125 mls @ 750 mls/hr IV PRN PRN; Protocol PRN Reason: Adult Acute Hypoglycemia Nursing Protocol Dextrose (D10w) 250 mls @ 1,000 mls/hr IV PRN PRN; Protocol PRN Reason: Adult Acute Hypoglycemia Nursing Protocol Vancomycin HCl (Vancocin) 2,000 mg in 400 mls @ 200 mls/hr IV ONCE ONE Stop: 07/09/25 10:59 Insulin Human Lispro (Insulin Lispro 100 Unit/1 Ml) 0 unit SUBCUT WM&BEDTIME [facility]; Protocol Last Admin: 07/09/25 09:30 Dose: Not Given Levothyroxine Sodium (Levothyroxine 88 Mcg Tablet) 88 mcg PO DAILY [facility] Last Admin: 07/09/25 05:29 Dose: 88 mcg Metoprolol Succinate (Metoprolol Succinate Er (24 Hr) 50 Mg Tablet) 50 mg PO DAILY [facility] Last Admin: 07/09/25 05:29 Dose: 50 mg Nitroglycerin (Nitroglycerin 0.4 Mg Sublingual Tablet) 0.4 mg SUBLINGUAL Q5M PRN PRN Reason: CHEST PAIN Stop: 07/10/25 06:35 Ondansetron HCl (Ondansetron 2 Mg/Ml Sdv 2 Ml) 4 mg IVP Q8H PRN PRN Reason: vomiting, or N/V if npo Ondansetron HCl (Ondansetron 2 Mg/Ml Sdv 2 Ml) 4 mg IVP Q2M PRN PRN Reason: NAUSEA Pantoprazole Sodium (Pantoprazole 40 Mg Sdv) 40 mg IVP DAILY [facility] Last Admin: 07/09/25 05:29 Dose: 40 mg Tramadol HCl (Tramadol 50 Mg Tablet) 50 mg PO BID PRN PRN Reason: MODERATE PAIN Last Admin: 07/08/25 20:44 Dose: 50 mg Vancomycin HCl (Vancomycin 1,000 Mg Sdv (Pharmacy Mix)) 0 mg XX PRN PRN PRN Reason: Pharmacy to Dose Vitals/I&O/Wt Last Vital Signs Temp 97.6 F 07/09/25 12:00 Pulse 86 07/09/25 12:00 Resp 24 H 07/09/25 12:00 BP 110/63 07/09/25 12:00 Pulse Ox 94 07/09/25 12:00 O2 Del Method Nasal Cannula 07/09/25 12:00 O2 Flow Rate 3 07/09/25 10:00 07/08/25 07/09/25 07/09/25 22:59 06:59 14:59 Intake Total 246.05 / 676.05 91.517 / 767.567 457.1 / 457.1 Output Total 250 / 250 Balance 246.05 / 676.05 -158.483 / 517.567 457.1 / 457.1 Weight last 48 hrs Weight 92.1 kg Weight 89 kg Weight 89 kg Physical Exam Narrative: General: Alert and oriented, lying comfortably without any distress on oxygen supplementation with 2 to 3 L of nasal cannula HEENT: Normocephalic, atraumatic, grossly unremarkable exam Cardio: normal rate rhythm, normal S1-S2 without any murmurs, rubs, or gallops. Respiratory: Equal air entry with mild basal crackles heard relatively better than before no wheezing or stridor GI: Abdomen soft, nontender, nondistended, normoactive bowel sounds present all 4 quadrants, Neuro: intact cranial nerves motor and sensory and cerebellar/coordination function without any focal neurological deficit Behavior: Appropriate and cooperative Extremities/skin: Adequate palpable pulses, left knee swelling currently better, mild trace pedal edema Urinary Catheter Management: Bajwa: Cath Placed During This Visit: no Reason for Continuing Indwelling Catheter: Acute Urinary Retention or Obstruction Data 07/09/25 09:23 07/09/25 09:23 Micro: Microbiology 07/08/25 23:06 Gram Stain - Final Synovial Fluid 07/07/25 03:30 Urine Culture - Preliminary Urine,Clean Catch Yeast species A&P Assessment and plan 1. Acute hypoxemic respiratory failure: -Secondary to heart failure with reduced ejection fraction, nuclear scan showed fixed defect. - Chest x-ray showed possible atelectasis involving a fibrous band on the left side with elevation of the diaphragm and some congestive features and to cover any possible pneumonia with broad spectrum antibiotics ( ceftriaxone and azithromycin ) Cardiology on board, continue GDMT, Aspirin 81 mg daily, metoprolol 50 mg daily, losartan 25 mg, statins. - to later change to entresto minimal dose if losartan is tolerated and renal functions remained stable. - Continue Lasix 60 mg twice daily guided by patient hemodynamics especially MAP to maintain MAP above 65 -Regular intake and output monitoring -Daily weight base analysis 2. Non-ST elevation AR (NSTEMI): Continue aspirin and statins Elevated troponins are explained by low high likely type II AR, type I cannot be excluded therefore continue on heparin infusion Myocardial perfusion scan GDMT Telemetry monitoring Monitor intake and output Follow cardiology recommendations 3. Septic arthritis of knee: S/p arthrocentesis of the left knee, showing infectious features Ortho on board and to follow the plan Ceftriaxone dose increased to 2 g daily and added vancomycin Follow cultures and Gram stain from the knee effusion sample 4. Acute congestive heart failure: Myocardial perfusion scan fixed defect Discontinue heparin Metoprolol 50 mg daily Add losartan 25 daily and later to switch to Entresto based on patient renal function and tolerability with blood pressure. Lasix 60 mg IV twice daily Continue aspirin and statin Continue empagliflozin 25 daily. 5. Effusion, left knee: No previous trauma or bruises noted on the knee CT scan of the left knee showed moderate to large effusion Ortho consulted and to follow the recommendations 6. Paroxysmal atrial fibrillation: Patient on rivaroxaban and aspirin Heparin discontinued considering patient has a fixed defect on myocardial scan, Resume rivaroxaban 7. Pneumonia involving right lung: Suspected pneumonia CTA did not show any pulmonary embolism however features of interstitial edema were more prominent. - Aspiration precaution -Continue antibiotics as mentioned above with ceftriaxone, completed already course of azithromycin for 3 days. 8. Acute kidney injury superimposed on CKD: Renal functions improving currently around baseline 2-2.1 Continue to monitor intake and output Avoid nephrotoxic medications 9. Urinary tract infection: Urine cultures only showed yeast patient is asymptomatic 10. Type 2 diabetes mellitus without complication, with long-term current use of insulin: insulin s/s last hba1c: ~8 to continue on Jardiance home medicine 25 mg daily Blood glucose monitoring Maintain normoglycemia 11. Hyperkalemia: Resolved Continue to monitor 12. TIA (transient ischemic attack): Continue aspirin and statins No focal neurological deficit at the moment 13. Mixed hyperlipidemia: Continue statins 14. Acquired hypothyroidism: Continue home dose levothyroxine 88 mcg daily 15. Chronic superficial gastritis without bleeding: PPI daily Plan: vte: Rivaroxaban GI prophylaxis: PPI daily Cardiac diet PDMP PDMP Reviewed: Not Reviewed Attestations Medical Necessity Statement*: Patient will stay more than 2 midnights for the management of acute congestive heart failure requiring diuresis and GDMT, left septic knee Time Spent in Patient Care: 16 - 35 minutes (>than 50% of time spent in counselling and/or direct pt care on unit). Critical Care Time: The high probability of a clinically significant, sudden or life threatening deterioration, as referenced in this documentation, required my full and direct attention, intervention and personal management. The critical care time shown is in addition to time spent performing any reported separately billable procedures and includes the following: [x] Data and vital sign review and interpretation [x] Patient assessment, examination and intervention [x] Medication orders and management [x] Patient/Family updates as able [x] Care Coordination and Documentation. Critical Care Time (min): 35 Other Attestations: Patient condition has been discussed at length with the patient/family, I have independently reviewed the chart labs imaging/diagnostics/EKG. the goals of care and code status with the patient/family/NOK/legal student services representative, and documented accordingly. The patient/family has been informed about the current condition and further plan of care. Agreed with the plan of care and understood without any language barrier. Every effort was made to ensure accuracy of clinical sociologist. Any obvious errors or omissions should be clarified with the author of the document. Coding Level of Care Code Critical Care >/= 30 minutes Diagnoses Acute hypoxemic respiratory failure J96.01 Non-ST elevation AR (NSTEMI) I21.4 Septic arthritis of knee M00.9 Acute congestive heart failure I50.9 Effusion, left knee M25.462 Paroxysmal atrial fibrillation I48.0 Atrial fibrillation type: paroxysmal Pneumonia involving right lung J18.9 Lung location: unspecified part of lung Pneumonia type: due to unspecified organism Acute kidney injury superimposed on CKD N17.9; N18.9 Urinary tract infection N39.0 Hematuria presence: without hematuria Urinary tract infection type: site unspecified Type 2 diabetes mellitus without complication, with long-term current use of insulin E11.9; Z79.4 Diabetes mellitus complication status: without complication Diabetes mellitus correction insulin use: with correction use Hyperkalemia E87.5 TIA (transient ischemic attack) G45.9 Mixed hyperlipidemia E78.2 Hyperlipidemia type: mixed hyperlipidemia Acquired hypothyroidism E03.9 Hypothyroidism type: acquired Chronic superficial gastritis without bleeding K29.30 Chronicity: chronic Gastritis bleeding: without bleeding Gastritis type: superficial
[2025-07-09 15:31] LABS: Cholesterol 86 mg/dL (0-200); HDL Cholesterol 33 mg/dL (60-100); Triglycerides 107 mg/dL (0-150)
[2025-07-09 18:19] LABS: MRSA PCR OZH (swab) NOT DETECTED (Not Detecte)
--- NOTE | 2025-07-09 19:09 | PM.PN ---
Subjective Subjective: Patient had knee aspiration last night for 60 cc of slightly turbid fluid. This was sent for Gram stain, cell count, and culture. The cultures are negative at this point, but white cell count is 63,000. This is primarily acute inflammatory cells. The patient has no other findings consistent with septic arthritis. She feels much better today, and is sitting up on the side of her bed. Medications: Medication Review Details: Current Medications Acetaminophen (Acetaminophen 325 Mg Tablet) 650 mg PO Q6H PRN PRN Reason: Mild/Mod Pain Or Temp >/= 101 Last Admin: 07/08/25 23:31 Dose: 650 mg Aminophylline (Aminophylline 25 Mg/Ml Sdv 20 Ml) 25 mg IVP Q2M PRN PRN Reason: see dose instructions Stop: 07/10/25 06:35 Aspirin (Aspirin 81 Mg Ec Tablet) 81 mg PO DAILY [facility] Last Admin: 07/09/25 05:29 Dose: 81 mg Baclofen (Baclofen 10 Mg Tablet) 5 mg PO BID PRN PRN Reason: muscle spasm Ceftriaxone Sodium (Ceftriaxone 2,000 Mg Sdv) 2,000 mg IVP Q24H [facility] Desvenlafaxine (Desvenlafaxine 50 Mg Tablet) 50 mg PO DAILY [facility] Last Admin: 07/09/25 05:29 Dose: 50 mg Furosemide (Furosemide 10 Mg/Ml Sdv 10ml) 60 mg IVP Q12H [facility] Last Admin: 07/08/25 20:27 Dose: 60 mg Glucagon (Glucagon 1 Mg/Ml Kit 1 Ml) 1 mg IM ONCE PRN; Protocol PRN Reason: Adult Acute Hypoglycemia Nursing Prot. Heparin Sodium (Porcine) (Heparin 5,000 Unit/Ml Inj 1 Ml) 0 unit IVP PRN PRN; Protocol PRN Reason: Heparin Weight Based Protocol -Subsequent Bolus Azithromycin 500 mg/ Sodium (Chloride) 250 mls @ 250 mls/hr IV Q24H [facility]; Protocol Last Infusion: 07/08/25 10:44 Dose: Infused Heparin Sodium/Sodium Chloride (Heparin Drip) 25,000 unit in 500 mls @ 21.228 mls/hr IV CONT [facility]; Protocol Last Admin: 07/08/25 23:35 Dose: 10.74 unit/kg/hr, 19 mls/hr Dextrose (D5w) 500 mls @ 0 mls/hr IV ONCE PRN; Protocol PRN Reason: Adult Acute Hypoglycemia Prot Dextrose (D10w) 125 mls @ 750 mls/hr IV PRN PRN; Protocol PRN Reason: Adult Acute Hypoglycemia Nursing Protocol Dextrose (D10w) 250 mls @ 1,000 mls/hr IV PRN PRN; Protocol PRN Reason: Adult Acute Hypoglycemia Nursing Protocol Vancomycin HCl (Vancocin) 2,000 mg in 400 mls @ 200 mls/hr IV ONCE ONE Stop: 07/09/25 10:59 Insulin Human Lispro (Insulin Lispro 100 Unit/1 Ml) 0 unit SUBCUT WM&BEDTIME [facility]; Protocol Last Admin: 07/09/25 09:30 Dose: Not Given Levothyroxine Sodium (Levothyroxine 88 Mcg Tablet) 88 mcg PO DAILY [facility] Last Admin: 07/09/25 05:29 Dose: 88 mcg Metoprolol Succinate (Metoprolol Succinate Er (24 Hr) 50 Mg Tablet) 50 mg PO DAILY [facility] Last Admin: 07/09/25 05:29 Dose: 50 mg Nitroglycerin (Nitroglycerin 0.4 Mg Sublingual Tablet) 0.4 mg SUBLINGUAL Q5M PRN PRN Reason: CHEST PAIN Stop: 07/10/25 06:35 Ondansetron HCl (Ondansetron 2 Mg/Ml Sdv 2 Ml) 4 mg IVP Q8H PRN PRN Reason: vomiting, or N/V if npo Ondansetron HCl (Ondansetron 2 Mg/Ml Sdv 2 Ml) 4 mg IVP Q2M PRN PRN Reason: NAUSEA Pantoprazole Sodium (Pantoprazole 40 Mg Sdv) 40 mg IVP DAILY [facility] Last Admin: 07/09/25 05:29 Dose: 40 mg Tramadol HCl (Tramadol 50 Mg Tablet) 50 mg PO BID PRN PRN Reason: MODERATE PAIN Last Admin: 07/08/25 20:44 Dose: 50 mg Vancomycin HCl (Vancomycin 1,000 Mg Sdv (Pharmacy Mix)) 0 mg XX PRN PRN PRN Reason: Pharmacy to Dose Vitals/I&O/Wt Last Vital Signs Temp 97.6 F 07/09/25 16:00 Pulse 90 07/09/25 16:00 Resp 24 H 07/09/25 16:00 BP 115/65 07/09/25 16:00 Pulse Ox 93 07/09/25 16:00 O2 Del Method Nasal Cannula 10/24/25 16:00 O2 Flow Rate 3 07/09/25 10:00 07/09/25 07/09/25 07/09/25 06:59 14:59 22:59 Intake Total 91.517 / 767.567 457.1 / 457.1 400 / 857.1 Output Total 250 / 250 350 / 350 Balance -158.483 / 517.567 457.1 / 457.1 50 / 507.1 Weight last 48 hrs Weight 203 lb 0.732 oz Weight 196 lb 3.382 oz Weight 196 lb 3.382 oz Physical Exam Const: COMMON NORMALS: no acute distress, average body habitus, patient oriented x3 and alert GENERAL APPEARANCE: cooperative and comfortable ORIENTATION/CONSCIOUSNESS: Yes awake HENMT: COMMON NORMALS: normocephalic and atraumatic HEAD & SCALP: normocephalic and atraumatic Eye: GENERAL EYE: appearance normal, both eyes and all related structures Chest: COMMONS NORMALS: normal inspection of the chest Resp: COMMON NORMALS: normal respiratory effort EFFORT & INSPECTION: Yes able to speak in complete sentences and Yes symmetric chest movement Extremity: LEFT LOWER EXTREMITY: Yes knee joint (Patient spontaneously moves the joint) Left knee: Yes inspection (No significant erythema), Yes ROM (Lacks approximately 5 degrees of extension, flexion easily to 90) and Yes neurovascular exam (Intact distally) Neuro: COMMON NORMALS: patient oriented x3 SENSORIUM/ORIENTATION: Yes alert Psych: COMMON NORMALS: mental status grossly normal APPEARANCE: Yes grossly normal ATTITUDE: Yes calm and Yes engaged ATTENTION/CONCENTRATION: Yes attention grossly intact Skin: COMMON NORMALS: no rashes or lesions noted GENERAL SKIN EXAM: no rashes or lesions noted Urinary Catheter Management: Bajwa: Cath Placed During This Visit: no Reason for Continuing Indwelling Catheter: Acute Urinary Retention or Obstruction Data 07/09/25 09:23 07/09/25 09:23 Micro: Microbiology 07/08/25 23:06 Gram Stain - Final Knee,Left 07/08/25 23:06 Gram Stain - Final Synovial Fluid A&P Assessment and plan 1. Effusion, left knee: Patient had aspiration is easily noted with 60 cc of slightly turbid fluid. This was sent for analysis, and there are 65,000 white cells. These are inflammatory cells, but Gram stain is negative for organisms. There were numerous white cells. There were no other findings consistent with septic knee such as erythema about the knee. The patient is much improved today. As I discussed with the hospitalist team, I would like to watch and see if anything grows given her multiple medical comorbidities. PDMP PDMP Reviewed: Not Reviewed Attestations Medical Necessity Statement*: Per hospitalist team. Coding Level of Care Code Acute Code for Chg Fwd Diagnoses Effusion, left knee M25.462
--- NOTE | 2025-07-09 21:18 | NMCV_ITS ---
NM salomon perf SPECT r/s* [id number] Destiney Nicholsa Age: 70 Gender: F : 1955 Exam Date: 07/09/2025 06:45 Ordering Phys: Nataliya Shaw MD ([email or web address]) Technologist: STEPHANIE Ortez Exam Location: [facility] Indications: cp STRESS TEST [facility] IMAGE PROTOCOL Rest/Stress 1 Lexiscan Day Radiopharmaceutical Dose (mCi) Administration Site Administered by Rest: Tc-99m 10.7 IV Isha Morrissey, [employer] Sestamibi Stress:Tc-99m 32.4 IV Isha uRizgle, [employer]PER[employer]OR Sestamibi Rest: 09-Jul-2025 60 Discovery 630 Stress: 09-Jul-2025 30 Discovery 630 0.4mg Lexiscan. Supine position only as patient was unable to lay prone. SPECT RESULTS Technical Quality: Good Raw Data Analysis: Normal Image Corrections: No attenuation or motion correction applied Summed Stress Score: 24 Summed Rest Score: 24 Summed Difference Score: 2 PERFUSION FINDINGS Moderate to large area of moderate to severely decreased tracer uptake involving the basal and mid inferior, basal and mid inferoseptal , mid anteroseptal and all the apical segments with subtle areas of reversibility in the basal inferoseptal and mid anteroseptal regions FUNCTIONAL RESULTS (calculated via Gated SPECT) Stress Image LV EF (%): 30 Stress EDV (mL):142 TID: 1.09 Stress ESV (mL):100 FUNCTIONAL FINDINGS: Segmental wall motion analysis revealed diffuse hypokinesia of the left ventricle. Moderately dilated LV cavity IMPRESSIONS 1. Myocardial perfusion imaging revealing moderate to large area of moderately severely decreased persistent tracer uptake involving the inferior, inferoseptal, anteroseptal and apical segments with subtle areas of reversibility suggesting extensive myocardial scarring mostly in the distribution of the right coronary artery and left anterior descending artery with subtle areas of anamaria infarction or ischemia. 2. Depressed LV ejection fraction of 30%. 3. Segmental wall motion analysis revealed diffuse hypokinesia of the left ventricle 4. Moderately dilated LV cavity with an end-systolic volume of 100ml. Compared to the study from 09/30/2020, the Perfusion abnormalities appear to be new Dr Nataliya Shaw MD FACC (Electronically Signed) Final Date: 09 July 2025 12:39 S
[2025-07-10] VITALS (7 sets, daily range): BP systolic 100–125; BP diastolic 54–75; PULSE 75–101; RESP 15–23; TEMP 36.6–36.8; O2SAT 88–96; BMI 31.0
[2025-07-10] MEDS: pantoprazole 40 mg SDV IVP (05:02)
[2025-07-10] MEDS: LOSARTAN 25 MG TABLET PO (05:02)
[2025-07-10] MEDS: DAPAGLIFLOZIN 10 MG TABLET PO (05:03)
[2025-07-10] MEDS: metoprolol succinate ER (24 HR) 50 mg Tablet PO (05:03)
[2025-07-10] MEDS: cefTRIAXone 2,000 mg SDV 2000 MG IVP (09:11)
[2025-07-10] MEDS: FUROsemide 10 mg/mL SDV 10mL 60 MG IVP (09:11)
[2025-07-10 09:44] LABS: Hematocrit 29.1 % (36-47); Hemoglobin 8.20 g/dL (11.27-16.99); Mean Corpuscular HGB Conc 28.2 g/dL (30-55); Mean Corpuscular Hemoglobin 25.1 pg (27-33); Mean Corpuscular Volume 89.0 fl (85-98); Nucleated Red Blood Cells % 0.4 %; Platelet Count 224 10^3/cmm (157-399); Red Blood Count 3.27 10^6/uL (3.85-5.65); White Blood Count 8.36 10^3/uL (3.29-11.43)
[2025-07-10 10:11] LABS: Alanine Aminotransferase 11 U/L (0-33); Albumin Level 2.5 g/dL (3.5-5.2); Alkaline Phosphatase 98 U/L (35-105); Anion Gap 22.2 (5-19); Aspartate Amino Transferase 11 U/L (0-32); Blood Urea Nitrogen 51 mg/dL (8-23); Calcium 8.3 mg/dL (8.5-10.5); Carbon Dioxide 17 mmol/L (22-29); Chloride 94 mmol/L (98-107); Creatinine Clr Calc Pharmacy 23.4154; Globulin 3.7 g/dL (1.3-4.6); Glucose 182 mg/dL (65-115); Osmolality Calculated 284 mOsm/kg (285-295); Potassium 5.2 mmol/L (3.5-5.1); Sodium 128 mmol/L (136-145); Total Protein 6.2 g/dL (6.6-8.7)
--- NOTE | 2025-07-10 11:26 | PM.PN ---
Subjective Subjective: Patient is seen with her . She was sleeping comfortably upon my entry with her knee flexed at about 90 degrees. She states she is feeling better and the knee is minimally painful. Medications: Medication Review Details: Current Medications Acetaminophen (Acetaminophen 325 Mg Tablet) 650 mg PO Q6H PRN PRN Reason: Mild/Mod Pain Or Temp >/= 101 Last Admin: 07/08/25 23:31 Dose: 650 mg Aminophylline (Aminophylline 25 Mg/Ml Sdv 20 Ml) 25 mg IVP Q2M PRN PRN Reason: see dose instructions Stop: 07/10/25 06:35 Aspirin (Aspirin 81 Mg Ec Tablet) 81 mg PO DAILY [facility] Last Admin: 07/09/25 05:29 Dose: 81 mg Baclofen (Baclofen 10 Mg Tablet) 5 mg PO BID PRN PRN Reason: muscle spasm Ceftriaxone Sodium (Ceftriaxone 2,000 Mg Sdv) 2,000 mg IVP Q24H [facility] Desvenlafaxine (Desvenlafaxine 50 Mg Tablet) 50 mg PO DAILY [facility] Last Admin: 07/09/25 05:29 Dose: 50 mg Furosemide (Furosemide 10 Mg/Ml Sdv 10ml) 60 mg IVP Q12H [facility] Last Admin: 07/08/25 20:27 Dose: 60 mg Glucagon (Glucagon 1 Mg/Ml Kit 1 Ml) 1 mg IM ONCE PRN; Protocol PRN Reason: Adult Acute Hypoglycemia Nursing Prot. Heparin Sodium (Porcine) (Heparin 5,000 Unit/Ml Inj 1 Ml) 0 unit IVP PRN PRN; Protocol PRN Reason: Heparin Weight Based Protocol -Subsequent Bolus Azithromycin 500 mg/ Sodium (Chloride) 250 mls @ 250 mls/hr IV Q24H [facility]; Protocol Last Infusion: 07/08/25 10:44 Dose: Infused Heparin Sodium/Sodium Chloride (Heparin Drip) 25,000 unit in 500 mls @ 21.228 mls/hr IV CONT [facility]; Protocol Last Admin: 07/08/25 23:35 Dose: 10.74 unit/kg/hr, 19 mls/hr Dextrose (D5w) 500 mls @ 0 mls/hr IV ONCE PRN; Protocol PRN Reason: Adult Acute Hypoglycemia Prot Dextrose (D10w) 125 mls @ 750 mls/hr IV PRN PRN; Protocol PRN Reason: Adult Acute Hypoglycemia Nursing Protocol Dextrose (D10w) 250 mls @ 1,000 mls/hr IV PRN PRN; Protocol PRN Reason: Adult Acute Hypoglycemia Nursing Protocol Vancomycin HCl (Vancocin) 2,000 mg in 400 mls @ 200 mls/hr IV ONCE ONE Stop: 07/09/25 10:59 Insulin Human Lispro (Insulin Lispro 100 Unit/1 Ml) 0 unit SUBCUT WM&BEDTIME [facility]; Protocol Last Admin: 07/09/25 09:30 Dose: Not Given Levothyroxine Sodium (Levothyroxine 88 Mcg Tablet) 88 mcg PO DAILY [facility] Last Admin: 07/09/25 05:29 Dose: 88 mcg Metoprolol Succinate (Metoprolol Succinate Er (24 Hr) 50 Mg Tablet) 50 mg PO DAILY [facility] Last Admin: 07/09/25 05:29 Dose: 50 mg Nitroglycerin (Nitroglycerin 0.4 Mg Sublingual Tablet) 0.4 mg SUBLINGUAL Q5M PRN PRN Reason: CHEST PAIN Stop: 07/10/25 06:35 Ondansetron HCl (Ondansetron 2 Mg/Ml Sdv 2 Ml) 4 mg IVP Q8H PRN PRN Reason: vomiting, or N/V if npo Ondansetron HCl (Ondansetron 2 Mg/Ml Sdv 2 Ml) 4 mg IVP Q2M PRN PRN Reason: NAUSEA Pantoprazole Sodium (Pantoprazole 40 Mg Sdv) 40 mg IVP DAILY [facility] Last Admin: 07/09/25 05:29 Dose: 40 mg Tramadol HCl (Tramadol 50 Mg Tablet) 50 mg PO BID PRN PRN Reason: MODERATE PAIN Last Admin: 07/08/25 20:44 Dose: 50 mg Vancomycin HCl (Vancomycin 1,000 Mg Sdv (Pharmacy Mix)) 0 mg XX PRN PRN PRN Reason: Pharmacy to Dose Vitals/I&O/Wt Last Vital Signs Temp 97.9 F 07/10/25 07:19 Pulse 95 07/10/25 07:19 Resp 23 H 07/10/25 07:19 BP 118/75 07/10/25 07:19 Pulse Ox 91 07/10/25 07:19 O2 Del Method Nasal Cannula 07/10/25 03:06 O2 Flow Rate 3 07/09/25 10:00 10/24/25 10/25/25 10/25/25 22:59 06:59 14:59 Intake Total 400 / 857.1 Output Total 350 / 350 450 / 800 Balance 50 / 507.1 -450 / 57.1 Weight last 48 hrs Weight 198 lb 3.129 oz Weight 203 lb 0.732 oz Physical Exam Const: COMMON NORMALS: no acute distress, average body habitus, patient oriented x3 and alert GENERAL APPEARANCE: cooperative and comfortable ORIENTATION/CONSCIOUSNESS: Yes awake HENMT: COMMON NORMALS: normocephalic and atraumatic HEAD & SCALP: normocephalic and atraumatic Eye: GENERAL EYE: appearance normal, both eyes and all related structures Chest: COMMONS NORMALS: normal inspection of the chest Resp: COMMON NORMALS: normal respiratory effort EFFORT & INSPECTION: Yes able to speak in complete sentences and Yes symmetric chest movement Extremity: LEFT LOWER EXTREMITY: Yes knee joint (Minimal swelling) Neuro: COMMON NORMALS: patient oriented x3 SENSORIUM/ORIENTATION: Yes alert Psych: COMMON NORMALS: mental status grossly normal APPEARANCE: Yes grossly normal ATTITUDE: Yes calm and Yes engaged ATTENTION/CONCENTRATION: Yes attention grossly intact Skin: COMMON NORMALS: no rashes or lesions noted GENERAL SKIN EXAM: no rashes or lesions noted Urinary Catheter Management: Bajwa: Cath Placed During This Visit: no Reason for Continuing Indwelling Catheter: Acute Urinary Retention or Obstruction Data 07/10/25 09:22 07/10/25 09:22 Micro: Microbiology 07/08/25 23:06 Anaerobic Culture - Preliminary Knee - Synovial Fluid 07/08/25 23:06 Gram Stain - Final Synovial Fluid Body Fluid Culture - Preliminary 07/08/25 23:06 Gram Stain - Final Knee,Left A&P Assessment and plan 1. Effusion, left knee: Patient's joint aspiration remains negative for growth. She has improved significantly. She is able to spontaneously move her knee with minimal discomfort. She continues with a slight effusion consistent with her arthritis. We will wait for crystal analysis as well. This was discussed with the patient and her , and they are in agreement with this plan. PDMP PDMP Reviewed: Not Reviewed Attestations Medical Necessity Statement*: Per hospitalist team Coding Level of Care Code Acute Code for Chg Fwd Diagnoses Effusion, left knee M25.462
--- NOTE | 2025-07-10 13:27 | PM.PN ---
Subjective Subjective: Patient was seen in the morning, she had a comfortable sleep overnight Currently improving Her left knee effusion has also decreased and range of motion has improved Medications: Medication Review Details: Current Medications Acetaminophen (Acetaminophen 325 Mg Tablet) 650 mg PO Q6H PRN PRN Reason: Mild/Mod Pain Or Temp >/= 101 Last Admin: 07/08/25 23:31 Dose: 650 mg Aminophylline (Aminophylline 25 Mg/Ml Sdv 20 Ml) 25 mg IVP Q2M PRN PRN Reason: see dose instructions Stop: 07/10/25 06:35 Aspirin (Aspirin 81 Mg Ec Tablet) 81 mg PO DAILY [facility] Last Admin: 07/09/25 05:29 Dose: 81 mg Baclofen (Baclofen 10 Mg Tablet) 5 mg PO BID PRN PRN Reason: muscle spasm Ceftriaxone Sodium (Ceftriaxone 2,000 Mg Sdv) 2,000 mg IVP Q24H [facility] Desvenlafaxine (Desvenlafaxine 50 Mg Tablet) 50 mg PO DAILY [facility] Last Admin: 07/09/25 05:29 Dose: 50 mg Furosemide (Furosemide 10 Mg/Ml Sdv 10ml) 60 mg IVP Q12H [facility] Last Admin: 07/08/25 20:27 Dose: 60 mg Glucagon (Glucagon 1 Mg/Ml Kit 1 Ml) 1 mg IM ONCE PRN; Protocol PRN Reason: Adult Acute Hypoglycemia Nursing Prot. Heparin Sodium (Porcine) (Heparin 5,000 Unit/Ml Inj 1 Ml) 0 unit IVP PRN PRN; Protocol PRN Reason: Heparin Weight Based Protocol -Subsequent Bolus Azithromycin 500 mg/ Sodium (Chloride) 250 mls @ 250 mls/hr IV Q24H [facility]; Protocol Last Infusion: 07/08/25 10:44 Dose: Infused Heparin Sodium/Sodium Chloride (Heparin Drip) 25,000 unit in 500 mls @ 21.228 mls/hr IV CONT [facility]; Protocol Last Admin: 07/08/25 23:35 Dose: 10.74 unit/kg/hr, 19 mls/hr Dextrose (D5w) 500 mls @ 0 mls/hr IV ONCE PRN; Protocol PRN Reason: Adult Acute Hypoglycemia Prot Dextrose (D10w) 125 mls @ 750 mls/hr IV PRN PRN; Protocol PRN Reason: Adult Acute Hypoglycemia Nursing Protocol Dextrose (D10w) 250 mls @ 1,000 mls/hr IV PRN PRN; Protocol PRN Reason: Adult Acute Hypoglycemia Nursing Protocol Vancomycin HCl (Vancocin) 2,000 mg in 400 mls @ 200 mls/hr IV ONCE ONE Stop: 07/09/25 10:59 Insulin Human Lispro (Insulin Lispro 100 Unit/1 Ml) 0 unit SUBCUT WM&BEDTIME [facility]; Protocol Last Admin: 07/09/25 09:30 Dose: Not Given Levothyroxine Sodium (Levothyroxine 88 Mcg Tablet) 88 mcg PO DAILY [facility] Last Admin: 07/09/25 05:29 Dose: 88 mcg Metoprolol Succinate (Metoprolol Succinate Er (24 Hr) 50 Mg Tablet) 50 mg PO DAILY [facility] Last Admin: 07/09/25 05:29 Dose: 50 mg Nitroglycerin (Nitroglycerin 0.4 Mg Sublingual Tablet) 0.4 mg SUBLINGUAL Q5M PRN PRN Reason: CHEST PAIN Stop: 07/10/25 06:35 Ondansetron HCl (Ondansetron 2 Mg/Ml Sdv 2 Ml) 4 mg IVP Q8H PRN PRN Reason: vomiting, or N/V if npo Ondansetron HCl (Ondansetron 2 Mg/Ml Sdv 2 Ml) 4 mg IVP Q2M PRN PRN Reason: NAUSEA Pantoprazole Sodium (Pantoprazole 40 Mg Sdv) 40 mg IVP DAILY [facility] Last Admin: 07/09/25 05:29 Dose: 40 mg Tramadol HCl (Tramadol 50 Mg Tablet) 50 mg PO BID PRN PRN Reason: MODERATE PAIN Last Admin: 07/08/25 20:44 Dose: 50 mg Vancomycin HCl (Vancomycin 1,000 Mg Sdv (Pharmacy Mix)) 0 mg XX PRN PRN PRN Reason: Pharmacy to Dose Vitals/I&O/Wt Last Vital Signs Temp 97.9 F 07/10/25 07:19 Pulse 81 07/10/25 12:00 Resp 21 H 07/10/25 12:00 BP 100/54 07/10/25 12:00 Pulse Ox 88 L 07/10/25 12:00 O2 Del Method Nasal Cannula 07/10/25 03:06 O2 Flow Rate 3 07/09/25 10:00 07/09/25 07/10/25 07/10/25 22:59 06:59 14:59 Intake Total 400 / 857.1 360 / 360 Output Total 350 / 350 450 / 800 Balance 50 / 507.1 -450 / 57.1 360 / 360 Weight last 48 hrs Weight 89.9 kg Weight 92.1 kg Physical Exam Narrative: General: Alert and oriented, lying comfortably without any distress on oxygen supplementation with 2 to 3 L of nasal cannula HEENT: Normocephalic, atraumatic, grossly unremarkable exam Cardio: normal rate rhythm, normal S1-S2 without any murmurs, rubs, or gallops. Respiratory: Equal air entry with mild basal crackles heard relatively better than before no wheezing or stridor GI: Abdomen soft, nontender, nondistended, normoactive bowel sounds present all 4 quadrants, Neuro: intact cranial nerves motor and sensory and cerebellar/coordination function without any focal neurological deficit Behavior: Appropriate and cooperative Extremities/skin: Adequate palpable pulses, left knee swelling currently better, mild with improvement in her range of motion, mild trace pedal edema Urinary Catheter Management: Bajwa: Cath Placed During This Visit: no Reason for Continuing Indwelling Catheter: Acute Urinary Retention or Obstruction Data 07/10/25 09:22 07/10/25 09:22 Micro: Microbiology 07/07/25 03:30 Urine Culture - Final Urine,Clean Catch Nery albicans 07/08/25 23:06 Anaerobic Culture - Preliminary Knee - Synovial Fluid 07/08/25 23:06 Gram Stain - Final Synovial Fluid Body Fluid Culture - Preliminary 07/08/25 23:06 Gram Stain - Final Knee,Left A&P Assessment and plan 1. Acute hypoxemic respiratory failure: -Secondary to heart failure with reduced ejection fraction, nuclear scan showed fixed defect. - Chest x-ray showed possible atelectasis involving a fibrous band on the left side with elevation of the diaphragm and some congestive features and to cover any possible pneumonia with broad spectrum antibiotics ( ceftriaxone and azithromycin ) Cardiology on board, continue GDMT, Aspirin 81 mg daily, metoprolol 50 mg daily, losartan 25 mg, statins. - to later change to entresto minimal dose if losartan is tolerated and renal functions remained stable. - Continue Lasix 60 mg twice daily guided by patient hemodynamics especially MAP to maintain MAP above 65 -Regular intake and output monitoring -Daily weight base analysis 2. Non-ST elevation [place] (NSTEMI): Continue aspirin and statins Elevated troponins are explained by low high likely type II [place], type I cannot be excluded therefore continue on heparin infusion Myocardial perfusion scan GDMT Telemetry monitoring Monitor intake and output Follow cardiology recommendations 3. Septic arthritis of knee: S/p arthrocentesis of the left knee, fluid analysis showed high WBC count however there is no features of genna infection or sepsis on clinical examination of the joint of the patient MRSA negative therefore to discontinue vancomycin, and to continue ceftriaxone 2 g daily Ortho on board and to follow the plan and to follow the final crystals analysis of the fluid, Gram stain and cultures negative from the fluid to till date 4. Acute congestive heart failure: Myocardial perfusion scan fixed defect Discontinue heparin Metoprolol 50 mg daily Losartan 25 mg daily added however mild kidney derangement and hyperkalemia was found, and other confounding factor of vancomycin was there and held since patient is MRSA negative. Will continue losartan and to monitor tomorrow about her kidney functions and electrolytes. To continue lasix 60 mg IV twice daily Continue aspirin and statin Continue empagliflozin 25 daily. 5. Effusion, left knee: No previous trauma or bruises noted on the knee CT scan of the left knee showed moderate to large effusion Ortho consulted and to follow the recommendations 6. Paroxysmal atrial fibrillation: Patient on rivaroxaban and aspirin Heparin discontinued considering patient has a fixed defect on myocardial scan, Resume rivaroxaban 7. Pneumonia involving right lung: Suspected pneumonia CTA did not show any pulmonary embolism however features of interstitial edema were more prominent. - Aspiration precaution -Continue antibiotics as mentioned above with ceftriaxone, completed already course of azithromycin for 3 days. 8. Acute kidney injury superimposed on CKD: Renal functions improving currently around baseline 2-2.1 Continue to monitor intake and output Avoid nephrotoxic medications 9. Urinary tract infection: Urine cultures only showed yeast patient is asymptomatic 10. Type 2 diabetes mellitus without complication, with long-term current use of insulin: insulin s/s last hba1c: ~8 to continue on Jardiance home medicine 25 mg daily Blood glucose monitoring Maintain normoglycemia 11. Hyperkalemia: Kayexalate and to maintain a bowel motion BMP in the morning Continue to monitor 12. TIA (transient ischemic attack): Continue aspirin and statins No focal neurological deficit at the moment 13. Mixed hyperlipidemia: Continue statins 14. Acquired hypothyroidism: Continue home dose levothyroxine 88 mcg daily 15. Chronic superficial gastritis without bleeding: PPI daily Plan: vte: Rivaroxaban GI prophylaxis: PPI daily Cardiac diet PDMP PDMP Reviewed: Not Reviewed Attestations Medical Necessity Statement*: Patient will stay overnight for the management of her heart failure with reduced ejection fraction requiring oxygen and left knee effusion s/p arthrocentesis that required further OT PT evaluation Time Spent in Patient Care: 16 - 35 minutes (>than 50% of time spent in counselling and/or direct pt care on unit). Other Attestations: Patient condition has been discussed at length with the patient/family, I have independently reviewed the chart labs imaging/diagnostics/EKG. the goals of care and code status with the patient/family/NOK/legal claims service representative, and documented accordingly. The patient/family has been informed about the current condition and further plan of care. Agreed with the plan of care and understood without any language barrier. Every effort was made to ensure accuracy of glue mounter operator. Any obvious errors or omissions should be clarified with the author of the document. Coding Level of Care Code 58374 Diagnoses Acute hypoxemic respiratory failure J96.01 Non-ST elevation [place] (NSTEMI) I21.4 Septic arthritis of knee M00.9 Acute congestive heart failure I50.9 Effusion, left knee M25.462 Paroxysmal atrial fibrillation I48.0 Atrial fibrillation type: paroxysmal Pneumonia involving right lung J18.9 Lung location: unspecified part of lung Pneumonia type: due to unspecified organism Acute kidney injury superimposed on CKD N17.9; N18.9 Urinary tract infection N39.0 Hematuria presence: without hematuria Urinary tract infection type: site unspecified Type 2 diabetes mellitus without complication, with long-term current use of insulin E11.9; Z79.4 Diabetes mellitus long term care administrator insulin use: with fci use Diabetes mellitus complication status: without complication Hyperkalemia E87.5 TIA (transient ischemic attack) G45.9 Mixed hyperlipidemia E78.2 Hyperlipidemia type: mixed hyperlipidemia Acquired hypothyroidism E03.9 Hypothyroidism type: acquired Chronic superficial gastritis without bleeding K29.30 Gastritis type: superficial Chronicity: chronic Gastritis bleeding: without bleeding
--- NOTE | 2025-07-10 15:26 | P.PN_ITS ---
Subjective 2 Subjective: Patient says she is feeling much better and comfortable No overnight event Medications: Medication Review Details: Current Medications Acetaminophen (Acetaminophen 325 Mg Tablet) 650 mg PO Q6H PRN PRN Reason: Mild/Mod Pain Or Temp >/= 101 Last Admin: 07/08/25 23:31 Dose: 650 mg Aminophylline (Aminophylline 25 Mg/Ml Sdv 20 Ml) 25 mg IVP Q2M PRN PRN Reason: see dose instructions Stop: 07/10/25 06:35 Aspirin (Aspirin 81 Mg Ec Tablet) 81 mg PO DAILY [facility] Last Admin: 07/09/25 05:29 Dose: 81 mg Baclofen (Baclofen 10 Mg Tablet) 5 mg PO BID PRN PRN Reason: muscle spasm Ceftriaxone Sodium (Ceftriaxone 2,000 Mg Sdv) 2,000 mg IVP Q24H [facility] Desvenlafaxine (Desvenlafaxine 50 Mg Tablet) 50 mg PO DAILY [facility] Last Admin: 07/09/25 05:29 Dose: 50 mg Furosemide (Furosemide 10 Mg/Ml Sdv 10ml) 60 mg IVP Q12H [facility] Last Admin: 07/08/25 20:27 Dose: 60 mg Glucagon (Glucagon 1 Mg/Ml Kit 1 Ml) 1 mg IM ONCE PRN; Protocol PRN Reason: Adult Acute Hypoglycemia Nursing Prot. Heparin Sodium (Porcine) (Heparin 5,000 Unit/Ml Inj 1 Ml) 0 unit IVP PRN PRN; Protocol PRN Reason: Heparin Weight Based Protocol -Subsequent Bolus Azithromycin 500 mg/ Sodium (Chloride) 250 mls @ 250 mls/hr IV Q24H [facility]; Protocol Last Infusion: 07/08/25 10:44 Dose: Infused Heparin Sodium/Sodium Chloride (Heparin Drip) 25,000 unit in 500 mls @ 21.228 mls/hr IV CONT [facility]; Protocol Last Admin: 07/08/25 23:35 Dose: 10.74 unit/kg/hr, 19 mls/hr Dextrose (D5w) 500 mls @ 0 mls/hr IV ONCE PRN; Protocol PRN Reason: Adult Acute Hypoglycemia Prot Dextrose (D10w) 125 mls @ 750 mls/hr IV PRN PRN; Protocol PRN Reason: Adult Acute Hypoglycemia Nursing Protocol Dextrose (D10w) 250 mls @ 1,000 mls/hr IV PRN PRN; Protocol PRN Reason: Adult Acute Hypoglycemia Nursing Protocol Vancomycin HCl (Vancocin) 2,000 mg in 400 mls @ 200 mls/hr IV ONCE ONE Stop: 07/09/25 10:59 Insulin Human Lispro (Insulin Lispro 100 Unit/1 Ml) 0 unit SUBCUT WM&BEDTIME [facility]; Protocol Last Admin: 07/09/25 09:30 Dose: Not Given Levothyroxine Sodium (Levothyroxine 88 Mcg Tablet) 88 mcg PO DAILY [facility] Last Admin: 07/09/25 05:29 Dose: 88 mcg Metoprolol Succinate (Metoprolol Succinate Er (24 Hr) 50 Mg Tablet) 50 mg PO DAILY [facility] Last Admin: 07/09/25 05:29 Dose: 50 mg Nitroglycerin (Nitroglycerin 0.4 Mg Sublingual Tablet) 0.4 mg SUBLINGUAL Q5M PRN PRN Reason: CHEST PAIN Stop: 07/10/25 06:35 Ondansetron HCl (Ondansetron 2 Mg/Ml Sdv 2 Ml) 4 mg IVP Q8H PRN PRN Reason: vomiting, or N/V if npo Ondansetron HCl (Ondansetron 2 Mg/Ml Sdv 2 Ml) 4 mg IVP Q2M PRN PRN Reason: NAUSEA Pantoprazole Sodium (Pantoprazole 40 Mg Sdv) 40 mg IVP DAILY [facility] Last Admin: 07/09/25 05:29 Dose: 40 mg Tramadol HCl (Tramadol 50 Mg Tablet) 50 mg PO BID PRN PRN Reason: MODERATE PAIN Last Admin: 07/08/25 20:44 Dose: 50 mg Vancomycin HCl (Vancomycin 1,000 Mg Sdv (Pharmacy Mix)) 0 mg XX PRN PRN PRN Reason: Pharmacy to Dose Vitals/I&O/Wt Last Vital Signs Temp 97.9 F 07/10/25 07:19 Pulse 77 07/10/25 14:22 Resp 21 H 07/10/25 12:00 BP 100/54 07/10/25 12:00 Pulse Ox 93 07/10/25 14:22 O2 Del Method Nasal Cannula 07/10/25 14:22 O2 Flow Rate 2 07/10/25 14:22 07/10/25 07/10/25 07/10/25 06:59 14:59 22:59 Intake Total 720 / 720 Output Total 450 / 800 Balance -450 / 57.1 720 / 720 Weight last 48 hrs Weight 198 lb 3.129 oz Weight 203 lb 0.732 oz Physical Exam 2 Const: OTHER: GENERAL: Patient is alert, awake and oriented x3. HEART: Regular S1 and S2. No murmur, rub or gallop. LUNGS: Clear to auscultate bilaterally. CENTRAL NERVOUS SYSTEM: Grossly nonfocal. EXTREMITIES: Lower extremities with out edema bilaterally. Urinary Catheter Management: Bajwa: Cath Placed During This Visit: no Reason for Continuing Indwelling Catheter: Acute Urinary Retention or Obstruction Data 07/10/25 09:22 07/10/25 09:22 Micro: Microbiology 07/07/25 03:30 Urine Culture - Final Urine,Clean Catch Nery albicans 07/08/25 23:06 Anaerobic Culture - Preliminary Knee - Synovial Fluid 07/08/25 23:06 Gram Stain - Final Synovial Fluid Body Fluid Culture - Preliminary 07/08/25 23:06 Gram Stain - Final Knee,Left A&P Assessment and plan 1. Acute systolic heart failure: Based on the perfusion scan, most likely this patient had myocardial infarction causing the severe LV systolic dysfunction. Since the perfusion scan revealed no significant ischemia, it may be appropriate to maximize the medical treatment 2. Elevated troponin: The elevated troponin T, could be related to type II PA. Possibility of type I PA cannot be excluded. Hemodynamically she seems to be stable. Because of anemia, I may keep her on a baby aspirin 1 tablet a day. 3. Ischemic cardiomyopathy: In view of the severe LV dysfunction, patient carries a higher risk for malignant ventricular arrhythmia. Discussed about prophylactic external defibrillator. Patient has decided not to have it. She seems to understand implications. 4. Type 2 diabetes mellitus without complication, with long-term current use of insulin: Aggressive management of the diabetes would be appropriate. 5. Acquired hypothyroidism: Patient is on thyroid replacement. This may be continued. 6. Mixed hyperlipidemia: Patient may be continued on the lipid-lowering agents. 7. Primary hypertension: Currently the blood pressure is in the normal range. May continue on the current medications. 8. Pituitary tumor: Patient is scheduled to have surgery at the [facility] in [place]. Plan: Worsening of renal function. I would discontinue diuretics I will hold losartan Once creatinine below 1.5 will add Entresto PDMP PDMP Reviewed: Not Reviewed Attestations 2 Medical Necessity Statement*: Patient require continuation hospitalization for above defined care Coding Level of Care Code Acute Code for Chg Fwd Diagnoses Acute systolic heart failure I50.21 Elevated troponin R79.89 Ischemic cardiomyopathy I25.5 Type 2 diabetes mellitus without complication, with long-term current use of insulin E11.9; Z79.4 Diabetes mellitus [facility] insulin use: with long term care phlebotomist use Diabetes mellitus complication status: without complication Acquired hypothyroidism E03.9 Hypothyroidism type: acquired Mixed hyperlipidemia E78.2 Hyperlipidemia type: mixed hyperlipidemia Primary hypertension I10 Hypertension type: primary hypertension Pituitary tumor D49.7
[2025-07-10 16:21] LABS: Anion Gap 19.4 (5-19); Blood Urea Nitrogen 58 mg/dL (8-23); Calcium 8.2 mg/dL (8.5-10.5); Carbon Dioxide 19 mmol/L (22-29); Chloride 96 mmol/L (98-107); Creatinine Clr Calc Pharmacy 20.1857; Glucose 228 mg/dL (65-115); Osmolality Calculated 291 mOsm/kg (285-295); Potassium 5.4 mmol/L (3.5-5.1); Sodium 129 mmol/L (136-145)
[2025-07-10] MEDS: dextrose 5 % 500 ML IV (17:16)
--- NOTE | 2025-07-10 20:03 | PC.NURSE ---
Patients Dexcom reading is 237. Patient refused finger stick and insulin.
[2025-07-11] VITALS (7 sets, daily range): BP systolic 94–122; BP diastolic 50–69; PULSE 73–79; RESP 12–27; TEMP 36.1–36.8; O2SAT 95–97
[2025-07-11] MEDS: DAPAGLIFLOZIN 10 MG TABLET PO (04:44)
[2025-07-11] MEDS: pantoprazole 40 mg SDV IVP (04:45)
[2025-07-11] MEDS: metoprolol succinate ER (24 HR) 50 mg Tablet PO (04:45)
[2025-07-11 07:59] LABS: Hematocrit 30.5 % (36-47); Hemoglobin 8.60 g/dL (11.27-16.99); Mean Corpuscular HGB Conc 28.2 g/dL (30-55); Mean Corpuscular Hemoglobin 24.7 pg (27-33); Mean Corpuscular Volume 87.6 fl (85-98); Nucleated Red Blood Cells % 0.4 %; Platelet Count 263 10^3/cmm (157-399); Red Blood Count 3.48 10^6/uL (3.85-5.65); White Blood Count 7.18 10^3/uL (3.29-11.43)
[2025-07-11 08:14] LABS: Alanine Aminotransferase 11 U/L (0-33); Albumin Level 3.0 g/dL (3.5-5.2); Alkaline Phosphatase 109 U/L (35-105); Anion Gap 23.3 (5-19); Aspartate Amino Transferase 9 U/L (0-32); Blood Urea Nitrogen 55 mg/dL (8-23); Calcium 8.3 mg/dL (8.5-10.5); Carbon Dioxide 18 mmol/L (22-29); Chloride 94 mmol/L (98-107); Creatinine Clr Calc Pharmacy 21.2048; Globulin 3.0 g/dL (1.3-4.6); Glucose 241 mg/dL (65-115); Osmolality Calculated 293 mOsm/kg (285-295); Potassium 5.3 mmol/L (3.5-5.1); Sodium 130 mmol/L (136-145); Total Protein 6.0 g/dL (6.6-8.7)
[2025-07-11] MEDS: cefTRIAXone 2,000 mg SDV 2000 MG IVP (09:12)
[2025-07-11 14:17] LABS: Glucose Urine UA 2+ (Normal); Nitrate Urine Negative (Negative); Specific Gravity, Urine 1.020 (1.005-1.030)
[2025-07-11 14:23] LABS: Add Urine Microscopic? YES
--- NOTE | 2025-07-11 15:16 | USR_ITS ---
PROCEDURE INFORMATION: Exam: US Retroperitoneal, Complete, Kidneys and Bladder Exam date and time: 07/11/2025 4:36 PM Age: 70 years old Clinical indication: Condition or disease; Other: Arnulfo on ckd TECHNIQUE: Imaging protocol: Real-time ultrasound of the retroperitoneum with image documentation. Complete exam focused on the bilateral kidneys and urinary bladder. COMPARISON: US renal BI* [id number] 02/18/2025 3:39 PM FINDINGS: Limitations: Examination limited by body habitus. Right kidney: Right kidney measures 10.1 x 4.9 x 4.2 cm. Grossly unremarkable echotexture. No hydronephrosis or shadowing stones demonstrated. No contour deforming renal mass lesions identified. Left kidney: Left kidney measures 10.1 x 5.6 x 4 cm. Grossly unremarkable echotexture. Large simple appearing cyst measuring up to 7.1 cm in the inferior pole. No hydronephrosis or shadowing stones demonstrated. Urinary bladder: Bladder is decompressed with a Bajwa catheter. Aorta: Visualized abdominal aorta is nonaneurysmal. US/US renal BI* [id number] IMPRESSION: 1. Limited exam due to body habitus. 2. Large simple appearing cyst measuring up to 7.1 cm in the inferior pole of the left kidney. 3. Kidneys otherwise appear grossly unremarkable with no hydronephrosis. 4. Bladder is decompressed with a Bajwa catheter.
--- NOTE | 2025-07-11 15:21 | P.PN_ITS ---
Subjective 2 Subjective: Patient was seen in the morning, he was feeling a little bit tired. No overnight acute events. Patient comfortable to be out of bed ago with little mobility The patient is understandable and agreed with Medications: Medication Review Details: Current Medications Acetaminophen (Acetaminophen 325 Mg Tablet) 650 mg PO Q6H PRN PRN Reason: Mild/Mod Pain Or Temp >/= 101 Last Admin: 07/08/25 23:31 Dose: 650 mg Aminophylline (Aminophylline 25 Mg/Ml Sdv 20 Ml) 25 mg IVP Q2M PRN PRN Reason: see dose instructions Stop: 07/10/25 06:35 Aspirin (Aspirin 81 Mg Ec Tablet) 81 mg PO DAILY [facility] Last Admin: 07/09/25 05:29 Dose: 81 mg Baclofen (Baclofen 10 Mg Tablet) 5 mg PO BID PRN PRN Reason: muscle spasm Ceftriaxone Sodium (Ceftriaxone 2,000 Mg Sdv) 2,000 mg IVP Q24H [facility] Desvenlafaxine (Desvenlafaxine 50 Mg Tablet) 50 mg PO DAILY [facility] Last Admin: 07/09/25 05:29 Dose: 50 mg Furosemide (Furosemide 10 Mg/Ml Sdv 10ml) 60 mg IVP Q12H [facility] Last Admin: 07/08/25 20:27 Dose: 60 mg Glucagon (Glucagon 1 Mg/Ml Kit 1 Ml) 1 mg IM ONCE PRN; Protocol PRN Reason: Adult Acute Hypoglycemia Nursing Prot. Heparin Sodium (Porcine) (Heparin 5,000 Unit/Ml Inj 1 Ml) 0 unit IVP PRN PRN; Protocol PRN Reason: Heparin Weight Based Protocol -Subsequent Bolus Azithromycin 500 mg/ Sodium (Chloride) 250 mls @ 250 mls/hr IV Q24H [facility]; Protocol Last Infusion: 07/08/25 10:44 Dose: Infused Heparin Sodium/Sodium Chloride (Heparin Drip) 25,000 unit in 500 mls @ 21.228 mls/hr IV CONT [facility]; Protocol Last Admin: 07/08/25 23:35 Dose: 10.74 unit/kg/hr, 19 mls/hr Dextrose (D5w) 500 mls @ 0 mls/hr IV ONCE PRN; Protocol PRN Reason: Adult Acute Hypoglycemia Prot Dextrose (D10w) 125 mls @ 750 mls/hr IV PRN PRN; Protocol PRN Reason: Adult Acute Hypoglycemia Nursing Protocol Dextrose (D10w) 250 mls @ 1,000 mls/hr IV PRN PRN; Protocol PRN Reason: Adult Acute Hypoglycemia Nursing Protocol Vancomycin HCl (Vancocin) 2,000 mg in 400 mls @ 200 mls/hr IV ONCE ONE Stop: 07/09/25 10:59 Insulin Human Lispro (Insulin Lispro 100 Unit/1 Ml) 0 unit SUBCUT WM&BEDTIME [facility]; Protocol Last Admin: 07/09/25 09:30 Dose: Not Given Levothyroxine Sodium (Levothyroxine 88 Mcg Tablet) 88 mcg PO DAILY [facility] Last Admin: 07/09/25 05:29 Dose: 88 mcg Metoprolol Succinate (Metoprolol Succinate Er (24 Hr) 50 Mg Tablet) 50 mg PO DAILY [facility] Last Admin: 07/09/25 05:29 Dose: 50 mg Nitroglycerin (Nitroglycerin 0.4 Mg Sublingual Tablet) 0.4 mg SUBLINGUAL Q5M PRN PRN Reason: CHEST PAIN Stop: 07/10/25 06:35 Ondansetron HCl (Ondansetron 2 Mg/Ml Sdv 2 Ml) 4 mg IVP Q8H PRN PRN Reason: vomiting, or N/V if npo Ondansetron HCl (Ondansetron 2 Mg/Ml Sdv 2 Ml) 4 mg IVP Q2M PRN PRN Reason: NAUSEA Pantoprazole Sodium (Pantoprazole 40 Mg Sdv) 40 mg IVP DAILY [facility] Last Admin: 07/09/25 05:29 Dose: 40 mg Tramadol HCl (Tramadol 50 Mg Tablet) 50 mg PO BID PRN PRN Reason: MODERATE PAIN Last Admin: 07/08/25 20:44 Dose: 50 mg Vancomycin HCl (Vancomycin 1,000 Mg Sdv (Pharmacy Mix)) 0 mg XX PRN PRN PRN Reason: Pharmacy to Dose Vitals/I&O/Wt Last Vital Signs Temp 98.2 F 07/11/25 08:00 Pulse 74 07/11/25 12:00 Resp 19 H 07/11/25 12:00 BP 101/55 07/11/25 12:00 Pulse Ox 96 07/11/25 12:00 O2 Del Method Nasal Cannula 07/11/25 00:09 O2 Flow Rate 2 07/10/25 14:22 07/11/25 07/11/25 07/11/25 06:59 14:59 22:59 Intake Total 1000 / 2580 600 / 600 Output Total 250 / 1050 Balance 750 / 1530 600 / 600 Weight last 48 hrs Weight 92.5 kg Weight 89.9 kg Physical Exam 2 Narrative: General: Alert and oriented, lying comfortably without any distress on oxygen supplementation with 2 L nasal cannula however she has no dyspnea or shortness of breath when off oxygen. HEENT: Normocephalic, atraumatic, grossly unremarkable exam Cardio: normal rate rhythm, normal S1-S2 without any murmurs, Respiratory: Equal air entry without any crackles wheezing or stridor GI: Abdomen soft, nontender, nondistended, normoactive bowel sounds present all 4 quadrants, Neuro: intact cranial nerves motor and sensory and cerebellar/coordination function without any focal neurological deficit Behavior: Appropriate and cooperative Extremities/skin: Adequate palpable pulses, left knee swelling currently better, mild with improvement in her range of motion, mild trace pedal edema Urinary Catheter Management: Bajwa: Cath Placed During This Visit: no Reason for Continuing Indwelling Catheter: Accurate Measurement of Urinary Output in Critically Ill Patients Data 07/11/25 02:30 07/11/25 02:30 Micro: Microbiology 07/08/25 23:06 Anaerobic Culture - Preliminary Knee - Synovial Fluid 07/08/25 23:06 Gram Stain - Final Synovial Fluid Body Fluid Culture - Preliminary 07/07/25 03:30 Urine Culture - Final Urine,Clean Catch Nery albicans A&P Assessment and plan 1. Acute hypoxemic respiratory failure: -Secondary to heart failure with reduced ejection fraction, nuclear scan showed fixed defect. - Possible pneumonia and already received antibiotics ceftriaxone and azithromycin - Cardiology on board and prescribed GDMT however patient renal functions were compromised therefore meanwhile to continue with aspirin, metoprolol and statins -Introduction of losartan and dapagliflozin/SGLT2 inhibitors affected kidneys therefore held - Hold diuretics or any blood pressure lowering medication considering he might be dehydrated, to keep on gentle hydration -Regular intake and output monitoring -Daily weight base analysis 2. Acute congestive heart failure: Continue aspirin statin and beta-joe Rest of the GDMT is not tolerated considering patient renal functions dear ranged 3. Ischemic cardiomyopathy: In view of the severe LV dysfunction, patient carries a higher risk for malignant ventricular arrhythmia. Discussed about prophylactic external defibrillator. Patient has decided not to have it. She seems to understand implications. 4. Pneumonia involving right lung: Patient received azithromycin, and ceftriaxone to continue for the next 1 to 2 days Currently improving fever episode as of now and shortness of breath is improving Continue incentive spirometry Maintain pulse ox of 92% 5. Acute kidney injury superimposed on CKD: Patient has been on GDMT with losartan and dapagliflozin that could have affected her kidney functions along with diuretics as well. To hold these medications at the moment Monitor intake and output with renal parameters Ultrasound kidneys urine osmolarity, urine electrolytes, urine protein and further urine studies to look for the cause of acute kidney injury Clean-catch UA Correction and monitor for electrolytes 6. Hyperkalemia: 1 bolus of dextrose 5% 500 mL Monitor BMP and calcium polystyrene once Monitor potassium in the morning 7. Non-ST elevation [place] (NSTEMI): Likely type II separate troponin trend was more of in the bloody range without any chest pain or chest pressure Nuclear scan showed fixed defect of the myocardium. Cardiology on board and follow the plan 8. Primary hypertension: Currently the blood pressure is in the normal range. May continue on the current medications. 9. Septic arthritis of knee: Ortho on board, crystals awaited from the arthrocentesis from the left knee Adequate analgesia to 10. Paroxysmal atrial fibrillation: Rivaroxaban and to continue at home Metoprolol 50 mg 11. Urinary tract infection: Previous urine culture showed Nery albicans without any symptoms and no bacteremia, repeat UA studies considering patient has OLIMPIA on CKD Patient on ceftriaxone and to continue for the next 1 to 2 days and follow the final cultures before de-escalation or discontinuation 12. Type 2 diabetes mellitus without complication, with long-term current use of insulin: Glucose levels uncontrolled, added insulin glargine 5 units in the morning along with sliding scale Keep the glucose in the range of 140-180 as inpatient Low-carb diet. 13. TIA (transient ischemic attack): Continue aspirin and statins home dose 14. Mixed hyperlipidemia: Patient may be continued on the lipid-lowering agents. 15. Acquired hypothyroidism: Patient is on thyroid replacement. This may be continued. 16. Chronic superficial gastritis without bleeding: PPI daily 17. Pituitary tumor: Patient is scheduled to have surgery at the [facility] in [place]. PDMP PDMP Reviewed: Not Reviewed Attestations 2 Medical Necessity Statement*: Patient will stay overnight for the management of her heart failure with reduced ejection fraction, OLIMPIA on CKD, left knee effusion infectious in nature s/p arthrocentesis Time Spent in Patient Care: 16 - 35 minutes (>than 50% of time sp ent in counselling and/or direct pt care on unit) . Critical Care Time: The high probability of a clinically significant, sudden or life threatening deterioration, as referenced in this documentation, required my full and direct attention, intervention and personal management. The critical care time shown is in addition to time spent performing any reported separately billable procedures and includes the following: [x] Data and vital sign review and interpretation [x ] Patient assessment, examination and intervention [x] Medication orders and management [x] Patient/Family updates as able [x] Care Coordination and Documentation. Critical Care Time (min): 35 Other Attestations: Patient condition has been discussed at length with the patient/family, I have independently reviewed the chart labs imaging/diagnostics/EKG. the goals of care and code status with the patient/family/[employer]K/[employer] representative, and documented accordingly. The patient/family has been informed about the current condition and further plan of care. Agreed with the plan of care and understood without any language barrier. Every effort was made to ensure accuracy of histotechnician. Any obvious errors or omissions should be clarified with the author of the document. Coding Level of Care Code Critical Care >/= 30 minutes Diagnoses Acute hypoxemic respiratory failure J96.01 Acute congestive heart failure I50.9 Ischemic cardiomyopathy I25.5 Pneumonia involving right lung J18.9 Lung location: unspecified part of lung Pneumonia type: due to unspecified organism Acute kidney injury superimposed on CKD N17.9; N18.9 Hyperkalemia E87.5 Non-ST elevation [place] (NSTEMI) I21.4 Primary hypertension I10 Hypertension type: primary hypertension Septic arthritis of knee M00.9 Paroxysmal atrial fibrillation I48.0 Atrial fibrillation type: paroxysmal Urinary tract infection N39.0 Hematuria presence: without hematuria Urinary tract infection type: site unspecified Type 2 diabetes mellitus without complication, with long-term current use of insulin E11.9; Z79.4 Diabetes mellitus usp insulin use: with usp use Diabetes mellitus complication status: without complication TIA (transient ischemic attack) G45.9 Mixed hyperlipidemia E78.2 Hyperlipidemia type: mixed hyperlipidemia Acquired hypothyroidism E03.9 Hypothyroidism type: acquired Chronic superficial gastritis without bleeding K29.30 Gastritis type: superficial Chronicity: chronic Gastritis bleeding: without bleeding Pituitary tumor D49.7
--- NOTE | 2025-07-11 15:33 | PM.PN ---
Subjective Subjective: Patient states she is doing fine. Creatinine has slightly improved to 2.8 Medications: Medication Review Details: Current Medications Acetaminophen (Acetaminophen 325 Mg Tablet) 650 mg PO Q6H PRN PRN Reason: Mild/Mod Pain Or Temp >/= 101 Last Admin: 07/08/25 23:31 Dose: 650 mg Aminophylline (Aminophylline 25 Mg/Ml Sdv 20 Ml) 25 mg IVP Q2M PRN PRN Reason: see dose instructions Stop: 07/10/25 06:35 Aspirin (Aspirin 81 Mg Ec Tablet) 81 mg PO DAILY [facility] Last Admin: 07/09/25 05:29 Dose: 81 mg Baclofen (Baclofen 10 Mg Tablet) 5 mg PO BID PRN PRN Reason: muscle spasm Ceftriaxone Sodium (Ceftriaxone 2,000 Mg Sdv) 2,000 mg IVP Q24H [facility] Desvenlafaxine (Desvenlafaxine 50 Mg Tablet) 50 mg PO DAILY [facility] Last Admin: 07/09/25 05:29 Dose: 50 mg Furosemide (Furosemide 10 Mg/Ml Sdv 10ml) 60 mg IVP Q12H [facility] Last Admin: 07/08/25 20:27 Dose: 60 mg Glucagon (Glucagon 1 Mg/Ml Kit 1 Ml) 1 mg IM ONCE PRN; Protocol PRN Reason: Adult Acute Hypoglycemia Nursing Prot. Heparin Sodium (Porcine) (Heparin 5,000 Unit/Ml Inj 1 Ml) 0 unit IVP PRN PRN; Protocol PRN Reason: Heparin Weight Based Protocol -Subsequent Bolus Azithromycin 500 mg/ Sodium (Chloride) 250 mls @ 250 mls/hr IV Q24H [facility]; Protocol Last Infusion: 07/08/25 10:44 Dose: Infused Heparin Sodium/Sodium Chloride (Heparin Drip) 25,000 unit in 500 mls @ 21.228 mls/hr IV CONT [facility]; Protocol Last Admin: 07/08/25 23:35 Dose: 10.74 unit/kg/hr, 19 mls/hr Dextrose (D5w) 500 mls @ 0 mls/hr IV ONCE PRN; Protocol PRN Reason: Adult Acute Hypoglycemia Prot Dextrose (D10w) 125 mls @ 750 mls/hr IV PRN PRN; Protocol PRN Reason: Adult Acute Hypoglycemia Nursing Protocol Dextrose (D10w) 250 mls @ 1,000 mls/hr IV PRN PRN; Protocol PRN Reason: Adult Acute Hypoglycemia Nursing Protocol Vancomycin HCl (Vancocin) 2,000 mg in 400 mls @ 200 mls/hr IV ONCE ONE Stop: 07/09/25 10:59 Insulin Human Lispro (Insulin Lispro 100 Unit/1 Ml) 0 unit SUBCUT WM&BEDTIME [facility]; Protocol Last Admin: 07/09/25 09:30 Dose: Not Given Levothyroxine Sodium (Levothyroxine 88 Mcg Tablet) 88 mcg PO DAILY [facility] Last Admin: 07/09/25 05:29 Dose: 88 mcg Metoprolol Succinate (Metoprolol Succinate Er (24 Hr) 50 Mg Tablet) 50 mg PO DAILY [facility] Last Admin: 07/09/25 05:29 Dose: 50 mg Nitroglycerin (Nitroglycerin 0.4 Mg Sublingual Tablet) 0.4 mg SUBLINGUAL Q5M PRN PRN Reason: CHEST PAIN Stop: 07/10/25 06:35 Ondansetron HCl (Ondansetron 2 Mg/Ml Sdv 2 Ml) 4 mg IVP Q8H PRN PRN Reason: vomiting, or N/V if npo Ondansetron HCl (Ondansetron 2 Mg/Ml Sdv 2 Ml) 4 mg IVP Q2M PRN PRN Reason: NAUSEA Pantoprazole Sodium (Pantoprazole 40 Mg Sdv) 40 mg IVP DAILY [facility] Last Admin: 07/09/25 05:29 Dose: 40 mg Tramadol HCl (Tramadol 50 Mg Tablet) 50 mg PO BID PRN PRN Reason: MODERATE PAIN Last Admin: 07/08/25 20:44 Dose: 50 mg Vancomycin HCl (Vancomycin 1,000 Mg Sdv (Pharmacy Mix)) 0 mg XX PRN PRN PRN Reason: Pharmacy to Dose Vitals/I&O/Wt Last Vital Signs Temp 98.2 F 07/11/25 08:00 Pulse 74 07/11/25 12:00 Resp 19 H 07/11/25 12:00 BP 101/55 07/11/25 12:00 Pulse Ox 96 07/11/25 12:00 O2 Del Method Nasal Cannula 07/11/25 00:09 O2 Flow Rate 2 07/10/25 14:22 07/11/25 07/11/25 07/11/25 06:59 14:59 22:59 Intake Total 1000 / 2580 600 / 600 Output Total 250 / 1050 Balance 750 / 1530 600 / 600 Weight last 48 hrs Weight 203 lb 14.841 oz Weight 198 lb 3.129 oz Physical Exam Const: OTHER: GENERAL: Patient is alert, awake and oriented x3. HEART: Regular S1 and S2. No murmur, rub or gallop. LUNGS: Clear to auscultate bilaterally. CENTRAL NERVOUS SYSTEM: Grossly nonfocal. EXTREMITIES: Lower extremities with out edema bilaterally. Urinary Catheter Management: Bajwa: Cath Placed During This Visit: no Reason for Continuing Indwelling Catheter: Accurate Measurement of Urinary Output in Critically Ill Patients Data 07/11/25 02:30 07/11/25 02:30 Micro: Microbiology 07/08/25 23:06 Anaerobic Culture - Preliminary Knee - Synovial Fluid 07/08/25 23:06 Gram Stain - Final Synovial Fluid Body Fluid Culture - Preliminary 07/07/25 03:30 Urine Culture - Final Urine,Clean Catch Nery albicans A&P Assessment and plan 1. Acute systolic heart failure: Based on the perfusion scan, most likely this patient had myocardial infarction causing the severe LV systolic dysfunction. Since the perfusion scan revealed no significant ischemia, it may be appropriate to maximize the medical treatment 2. Elevated troponin: The elevated troponin T, could be related to type II AL. Possibility of type I AL cannot be excluded. Hemodynamically she seems to be stable. Because of anemia, I may keep her on a baby aspirin 1 tablet a day. 3. Ischemic cardiomyopathy: In view of the severe LV dysfunction, patient carries a higher risk for malignant ventricular arrhythmia. Discussed about prophylactic external defibrillator. Patient has decided not to have it. She seems to understand implications. 4. Type 2 diabetes mellitus without complication, with long-term current use of insulin: Aggressive management of the diabetes would be appropriate. 5. Acquired hypothyroidism: Patient is on thyroid replacement. This may be continued. 6. Mixed hyperlipidemia: Patient may be continued on the lipid-lowering agents. 7. Primary hypertension: Currently the blood pressure is in the normal range. May continue on the current medications. 8. Pituitary tumor: Patient is scheduled to have surgery at the [facility] in [place]. Plan: Worsening of renal function. I would discontinue diuretics I will hold losartan Once creatinine below 1.5 will add Entresto On today's visit dated 07/11/2025 patient appeared to be stable, creatinine has stopped worsening continue holding diuretics losartan, encourage p.o. intake she was already given 1 L of fluid yesterday once creatinine improved to 1.5 will add Entresto PDMP PDMP Reviewed: Not Reviewed Attestations Medical Necessity Statement*: Patient require continuation of hospitalization for above defined care Coding Level of Care Code Acute Code for [facility] Diagnoses Acute systolic heart failure I50.21 Elevated troponin R79.89 Ischemic cardiomyopathy I25.5 Type 2 diabetes mellitus without complication, with long-term current use of insulin E11.9; Z79.4 Diabetes mellitus terminal block assembler insulin use: with terminal block assembler use Diabetes mellitus complication status: without complication Acquired hypothyroidism E03.9 Hypothyroidism type: acquired Mixed hyperlipidemia E78.2 Hyperlipidemia type: mixed hyperlipidemia Primary hypertension I10 Hypertension type: primary hypertension Pituitary tumor D49.7
--- NOTE | 2025-07-11 16:20 | PM.MISC ---
Miscellaneous Note Purpose of Documentation: Laboratory results Note: Cultures of the left knee synovial fluid remain negative. At this point, surgery is not indicated.
[2025-07-11] MEDS: dextrose 5 % 500 ML IV (16:45)
[2025-07-11 19:06] LABS: Glucose Urine UA 1+ (Normal); Nitrate Urine Negative (Negative); Specific Gravity, Urine 1.022 (1.005-1.030)
[2025-07-11 19:11] LABS: Add Urine Microscopic? YES; Universal Test for UA Present (0)
[2025-07-11 19:23] LABS: Creatinine Urine, Random 124 mg/dL (28-217); Potassium, Radom Urine 46 mmol/L
[2025-07-11 19:25] LABS: Urine Random Chloride 13 mmol/L; Urine Random Sodium 15 mmol/L
[2025-07-11 19:36] LABS: Microalbum Creatinine Ratio Ur 613 mg/dL (0-20)
--- NOTE | 2025-07-11 20:22 | PC.NURSE ---
Addendum entered by Natalia Smith RN 07/11/25 20:24: Provider updated. Original Note: Patients dexcom , at 2020 read 257. Patient refuses Humalog insulin.
[2025-07-12] VITALS (8 sets, daily range): BP systolic 110–123; BP diastolic 56–88; PULSE 76–96; RESP 14–21; TEMP 36.3–36.8; O2SAT 90–96
[2025-07-12 02:33] LABS: Hematocrit 26.2 % (36-47); Hemoglobin 7.70 g/dL (11.27-16.99); Mean Corpuscular HGB Conc 29.4 g/dL (30-55); Mean Corpuscular Hemoglobin 24.4 pg (27-33); Mean Corpuscular Volume 82.9 fl (85-98); Nucleated Red Blood Cells % 0 %; Platelet Count 222 10^3/cmm (157-399); Red Blood Count 3.16 10^6/uL (3.85-5.65); White Blood Count 6.40 10^3/uL (3.29-11.43)
[2025-07-12 02:59] LABS: Alanine Aminotransferase 8 U/L (0-33); Albumin Level 2.7 g/dL (3.5-5.2); Alkaline Phosphatase 88 U/L (35-105); Anion Gap 20.5 (5-19); Aspartate Amino Transferase 9 U/L (0-32); Blood Urea Nitrogen 54 mg/dL (8-23); Calcium 7.9 mg/dL (8.5-10.5); Carbon Dioxide 18 mmol/L (22-29); Chloride 95 mmol/L (98-107); Creatinine Clr Calc Pharmacy 21.2048; Globulin 3.3 g/dL (1.3-4.6); Glucose 163 mg/dL (65-115); Osmolality Calculated 286 mOsm/kg (285-295); Potassium 4.5 mmol/L (3.5-5.1); Sodium 129 mmol/L (136-145); Total Protein 6.0 g/dL (6.6-8.7)
[2025-07-12] MEDS: pantoprazole 40 mg SDV IVP (05:07)
[2025-07-12] MEDS: metoprolol succinate ER (24 HR) 50 mg Tablet PO (05:07)
[2025-07-12] MEDS: insulin glargine 100 units/1 mL 5 UNIT SUBCUT (05:58)
[2025-07-12] MEDS: cefTRIAXone 2,000 mg SDV 2000 MG IVP (10:39)
--- NOTE | 2025-07-12 11:12 | P.PN_ITS ---
<Statement entered by Cori Sloan MD - 07/19/25 19:43> Patient was evaluated and cared for in conjunction with an advanced practice practitioner. I personally examined the patient and reviewed the chart and all pertinent data including imaging, telemetry, and laboratory results. I discussed the patient in detail with the advanced practice practitioner. Please see their note for complete H&P testing result and agreed upon plan of care for the patient Subjective 2 Subjective: Feeling better, she still appears dry, will add IV fluids. Vitals/I&O/Wt Last Vital Signs Temp 98.2 F 07/12/25 07:24 Pulse 83 07/12/25 07:24 Resp 18 07/12/25 07:24 BP 111/61 07/12/25 07:24 Pulse Ox 90 07/12/25 10:00 O2 Del Method Room Air 07/12/25 10:00 O2 Flow Rate 2 07/11/25 10:00 07/11/25 07/12/25 07/12/25 22:59 06:59 14:59 Intake Total 500 / 1100 Output Total 200 / 340 Balance 500 / 760 -200 / 760 Weight last 48 hrs Weight 195 lb 12.328 oz Weight 195 lb 12.328 oz Weight 203 lb 14.841 oz Physical Exam 2 Const: COMMON NORMALS: no acute distress and patient oriented x3 GENERAL APPEARANCE: cooperative and comfortable ORIENTATION/CONSCIOUSNESS: Yes awake, Yes oriented to person, Yes oriented to place and Yes oriented to time Chest: COMMONS NORMALS: normal inspection of the chest and normal palpation of entire chest wall CHEST: Yes Symmetrical chest wall rise Resp: COMMON NORMALS: normal respiratory effort, No retractions, No use of accessory muscles and clear to auscultation bilaterally EFFORT & INSPECTION: Yes symmetric chest movement AUSCULTATION: clear to auscultation bilaterally Cardio: COMMON NORMALS: regular rate, regular rhythm, S1 normal heart sound present, S2 normal heart sound present, No gallops present (Cardio), No clicks present (Cardio), No murmurs present (Cardio) and No rub (Cardio) RATE: r egular rate RHYTHM: regular rhythm HEART SOUNDS: S1 normal heart sound present and S2 normal heart sound present PERIPHERAL PULSES: radial pulses present Extremity: COMMON NORMALS: no pedal edema Neuro: COMMON NORMALS: patient oriented x3 and moves all extremities S ENSORIUM/ORIENTATION: Yes oriented to person, Yes oriented to place and Yes oriented to time Urinary Catheter Management: Bajwa: Cath Placed During This Visit: no Reason for Continuing Indwelling Catheter: Accurate Measurement of Urinary Output in Critically Ill Patients Data 07/12/25 02:02 07/12/25 02:02 Micro: Microbiology 07/11/25 13:00 Urine Culture - Preliminary Urine,Clean Catch Yeast species 07/07/25 04:37 Blood Culture - Final Blood NO GROWTH AFTER 5 DAYS 07/07/25 04:27 Blood Culture - Final Blood NO GROWTH AFTER 5 DAYS 07/08/25 23:06 Anaerobic Culture - Preliminary Knee - Synovial Fluid 07/08/25 23:06 Gram Stain - Final Synovial Fluid Body Fluid Culture - Preliminary A&P Assessment and plan 1. Acute systolic heart failure: 2. Elevated troponin: 3. Ischemic cardiomyopathy: 4. Type 2 diabetes mellitus without complication, with long-term current use of insulin: 5. Acquired hypothyroidism: 6. Mixed hyperlipidemia: Plan: Gentle hydration with IVF today, monitor renal function. Hemoglobin low on labs this morning, recheck was 9.5. Continue metoprolol succinate, aspirin, statin, Xarelto. Holding off on Entresto due to renal function. PDMP PDMP Reviewed: Not Reviewed Attestations 2 Medical Necessity Statement*: per hospitalist Coding Level of Care Code Acute Code for [facility] Diagnoses Acute systolic heart failure I50.21 Elevated troponin R79.89 Ischemic cardiomyopathy I25.5 Type 2 diabetes mellitus without complication, with long-term current use of insulin E11.9; Z79.4 Diabetes mellitus terminal system operator insulin use: with terminal system operator use Diabetes mellitus complication status: without complication Acquired hypothyroidism E03.9 Hypothyroidism type: acquired Mixed hyperlipidemia E78.2 Hyperlipidemia type: mixed hyperlipidemia
--- NOTE | 2025-07-12 11:35 | P.PN_ITS ---
Subjective 2 Subjective: Patient is currently stable however due to hyperkalemia was given bowel regimen and was not happy with it. However overall clinically she is better and appreciates the medical management of the team. Creatinine stable 2.8 and did not rise further Hyperkalemia resolved Continue to monitor Medications: Medication Review Details: Current Medications Acetaminophen (Acetaminophen 325 Mg Tablet) 650 mg PO Q6H PRN PRN Reason: Mild/Mod Pain Or Temp >/= 101 Last Admin: 07/08/25 23:31 Dose: 650 mg Aminophylline (Aminophylline 25 Mg/Ml Sdv 20 Ml) 25 mg IVP Q2M PRN PRN Reason: see dose instructions Stop: 07/10/25 06:35 Aspirin (Aspirin 81 Mg Ec Tablet) 81 mg PO DAILY LIZETT Last Admin: 07/09/25 05:29 Dose: 81 mg Baclofen (Baclofen 10 Mg Tablet) 5 mg PO BID PRN PRN Reason: muscle spasm Ceftriaxone Sodium (Ceftriaxone 2,000 Mg Sdv) 2,000 mg IVP Q24H [facility] Desvenlafaxine (Desvenlafaxine 50 Mg Tablet) 50 mg PO DAILY [facility] Last Admin: 07/09/25 05:29 Dose: 50 mg Furosemide (Furosemide 10 Mg/Ml Sdv 10ml) 60 mg IVP Q12H [facility] Last Admin: 07/08/25 20:27 Dose: 60 mg Glucagon (Glucagon 1 Mg/Ml Kit 1 Ml) 1 mg IM ONCE PRN; Protocol PRN Reason: Adult Acute Hypoglycemia Nursing Prot. Heparin Sodium (Porcine) (Heparin 5,000 Unit/Ml Inj 1 Ml) 0 unit IVP PRN PRN; Protocol PRN Reason: Heparin Weight Based Protocol -Subsequent Bolus Azithromycin 500 mg/ Sodium (Chloride) 250 mls @ 250 mls/hr IV Q24H LIZETT; Protocol Last Infusion: 07/08/25 10:44 Dose: Infused Heparin Sodium/Sodium Chloride (Heparin Drip) 25,000 unit in 500 mls @ 21.228 mls/hr IV CONT [facility]ZETT; Protocol Last Admin: 07/08/25 23:35 Dose: 10.74 unit/kg/hr, 19 mls/hr Dextrose (D5w) 500 mls @ 0 mls/hr IV ONCE PRN; Protocol PRN Reason: Adult Acute Hypoglycemia Prot Dextrose (D10w) 125 mls @ 750 mls/hr IV PRN PRN; Protocol PRN Reason: Adult Acute Hypoglycemia Nursing Protocol Dextrose (D10w) 250 mls @ 1,000 mls/hr IV PRN PRN; Protocol PRN Reason: Adult Acute Hypoglycemia Nursing Protocol Vancomycin HCl (Vancocin) 2,000 mg in 400 mls @ 200 mls/hr IV ONCE ONE Stop: 07/09/25 10:59 Insulin Human Lispro (Insulin Lispro 100 Unit/1 Ml) 0 unit SUBCUT WM&BEDTIME [facility]; Protocol Last Admin: 07/09/25 09:30 Dose: Not Given Levothyroxine Sodium (Levothyroxine 88 Mcg Tablet) 88 mcg PO DAILY [facility] Last Admin: 07/09/25 05:29 Dose: 88 mcg Metoprolol Succinate (Metoprolol Succinate Er (24 Hr) 50 Mg Tablet) 50 mg PO DAILY [facility] Last Admin: 07/09/25 05:29 Dose: 50 mg Nitroglycerin (Nitroglycerin 0.4 Mg Sublingual Tablet) 0.4 mg SUBLINGUAL Q5M PRN PRN Reason: CHEST PAIN Stop: 07/10/25 06:35 Ondansetron HCl (Ondansetron 2 Mg/Ml Sdv 2 Ml) 4 mg IVP Q8H PRN PRN Reason: vomiting, or N/V if npo Ondansetron HCl (Ondansetron 2 Mg/Ml Sdv 2 Ml) 4 mg IVP Q2M PRN PRN Reason: NAUSEA Pantoprazole Sodium (Pantoprazole 40 Mg Sdv) 40 mg IVP DAILY [facility] Last Admin: 07/09/25 05:29 Dose: 40 mg Tramadol HCl (Tramadol 50 Mg Tablet) 50 mg PO BID PRN PRN Reason: MODERATE PAIN Last Admin: 07/08/25 20:44 Dose: 50 mg Vancomycin HCl (Vancomycin 1,000 Mg Sdv (Pharmacy Mix)) 0 mg XX PRN PRN PRN Reason: Pharmacy to Dose Vitals/I&O/Wt Last Vital Signs Temp 98.2 F 07/12/25 07:24 Pulse 83 07/12/25 07:24 Resp 18 07/12/25 07:24 BP 111/61 07/12/25 07:24 Pulse Ox 90 07/12/25 10:00 O2 Del Method Room Air 07/12/25 10:00 O2 Flow Rate 2 07/11/25 10:00 07/11/25 07/12/25 07/12/25 22:59 06:59 14:59 Intake Total 500 / 1100 Output Total 200 / 340 Balance 500 / 960 -200 / 760 Weight last 48 hrs Weight 88.8 kg Weight 88.8 kg Weight 92.5 kg Physical Exam 2 Narrative: General: Alert and oriented, lying comfortably without any distress off oxygen however without any distress and able to speak in full sentences HEENT: Normocephalic, atraumatic, grossly unremarkable exam Cardio: normal rate rhythm, normal S1-S2 without any murmurs, Respiratory: Equal air entry without any crackles wheezing or stridor GI: Abdomen soft, nontender, nondistended, normoactive bowel sounds present all 4 quadrants, Neuro: intact cranial nerves motor and sensory and cerebellar/coordination function without any focal neurological deficit Behavior: Appropriate and cooperative Extremities/skin: Adequate palpable pulses, left knee swelling currently better, mild with improvement in her range of motion, mild trace pedal edema Urinary Catheter Management: Bajwa: Cath Placed During This Visit: no Reason for Continuing Indwelling Catheter: Accurate Measurement of Urinary Output in Critically Ill Patients Data 07/12/25 12:26 07/12/25 02:02 Micro: Microbiology 07/08/25 23:06 Gram Stain - Final Synovial Fluid Body Fluid Culture - Final 07/11/25 13:00 Urine Culture - Preliminary Urine,Clean Catch Yeast species 07/07/25 04:37 Blood Culture - Final Blood NO GROWTH AFTER 5 DAYS 07/07/25 04:27 Blood Culture - Final Blood NO GROWTH AFTER 5 DAYS 07/08/25 23:06 Anaerobic Culture - Preliminary Knee - Synovial Fluid A&P Assessment and plan 1. Acute hypoxemic respiratory failure: -Secondary to heart failure with reduced ejection fraction, nuclear scan showed fixed defect. - Possible pneumonia and already received antibiotics ceftriaxone and azithromycin - Cardiology on board and prescribed GDMT however patient renal functions were compromised therefore meanwhile to continue with aspirin, metoprolol and statins -Introduction of losartan and dapagliflozin/SGLT2 inhibitors affected kidneys therefore held - Hold diuretics or any blood pressure lowering medication considering he might be dehydrated, to keep on gentle hydration -Regular intake and output monitoring -Daily weight base analysis 2. Acute congestive heart failure: Continue aspirin statin and beta-joe Rest of the GDMT is not tolerated considering patient renal functions dear ranged Continue telemetry monitoring 3. Ischemic cardiomyopathy: In view of the severe LV dysfunction, patient carries a higher risk for malignant ventricular arrhythmia. Discussed about prophylactic external defibrillator. Patient has decided not to have it. She seems to understand implications. Cardiology on board for further management 4. Pneumonia involving right lung: Patient receives azithromycin and ceftriaxone, currently better Currently improving fever episode as of now and shortness of breath is improving Continue incentive spirometry Maintain pulse ox of 92% 5. Acute kidney injury superimposed on CKD: Medications adjusted due to renal dysfunction Avoid nephrotoxic medications. Monitor intake and output with renal parameters, Ultrasound kidneys did not show any features of renal parenchymal disease or any postobstructive features urine studies showed increased microalbumin to creatinine ratio with some yeast however considering patient asymptomatic no indication to treat yeast in the urine. Urine culture did not show any bacterial growth Correction and monitor for electrolytes 6. Hyperkalemia: Currently resolved continue to monitor 7. Non-ST elevation TN (NSTEMI): Likely type II separate troponin trend was more of in the bloody range without any chest pain or chest pressure Nuclear scan showed fixed defect of the myocardium. Cardiology on board and follow the plan 8. Primary hypertension: Currently the blood pressure is in the normal range. May continue on the current medications. 9. Septic arthritis of knee: Ortho on board, crystals awaited from the arthrocentesis from the left knee Adequate analgesia 10. Paroxysmal atrial fibrillation: Rivaroxaban and to continue at home Metoprolol 50 mg daily 11. Urinary tract infection: Patient UA analysis showed no bacterial growth however yeast and therefore to monitor No indication to treat UTI since the patient is having no symptoms 12. Type 2 diabetes mellitus without complication, with long-term current use of insulin: Glucose levels getting better, however having glucose less than 100 in the range of 80s in the morning, reduce the dose of glargine to 3 units and continue sliding scale Keep the glucose in the range of 140-180 as inpatient Low-carb diet. 13. TIA (transient ischemic attack): Continue aspirin and statins home dose 14. Mixed hyperlipidemia: Patient may be continued on the lipid-lowering agents. 15. Acquired hypothyroidism: Continue levothyroxine 88 mcg daily as per home medication 16. Chronic superficial gastritis without bleeding: PPI daily 17. Pituitary tumor: Patient is scheduled to have surgery at the [facility] in [place]. PDMP PDMP Reviewed: Not Reviewed Attestations 2 Medical Necessity Statement*: Patient will stay more than 2 midnights for the optimization of her OLIMPIA on CKD, heart failure with reduced ejection fraction and right knee effusion s/p arthrocentesis Time Spent in Patient Care: Greater than 35 minutes (>than 50% of time spent in counselling and/or direct pt care on unit) . Critical Care Time: The high probability of a clinically significant, sudden or life threatening deterioration, as referenced in this documentation, required my full and direct attention, intervention and personal management. The critical care time shown is in addition to time spent performing any reported separately billable procedures and includes the following: [x] Data and vital sign review and interpretation [x ] Patient assessment, examination and intervention [x] Medication orders and management [x] Patient/Family updates as able [x] Care Coordination and Documentation. Critical Care Time (min): 35 Other Attestations: Patient condition has been discussed at length with the patient/family, I have independently reviewed the chart labs imaging/diagnostics/EKG. the goals of care and code status with the patient/family/NOK/legal artist's representative, and documented accordingly. The patient/family has been informed about the current condition and further plan of care. Agreed with the plan of care and understood without any language barrier. Every effort was made to ensure accuracy of training lead. Any obvious errors or omissions should be clarified with the author of the document. Coding Level of Care Code Critical Care >/= 30 minutes Diagnoses Acute hypoxemic respiratory failure J96.01 Acute congestive heart failure I50.9 Ischemic cardiomyopathy I25.5 Pneumonia involving right lung J18.9 Lung location: unspecified part of lung Pneumonia type: due to unspecified organism Acute kidney injury superimposed on CKD N17.9; N18.9 Hyperkalemia E87.5 Non-ST elevation TN (NSTEMI) I21.4 Primary hypertension I10 Hypertension type: primary hypertension Septic arthritis of knee M00.9 Paroxysmal atrial fibrillation I48.0 Atrial fibrillation type: paroxysmal Urinary tract infection N39.0 Hematuria presence: without hematuria Urinary tract infection type: site unspecified Type 2 diabetes mellitus without complication, with long-term current use of insulin E11.9; Z79.4 Diabetes mellitus complication status: without complication Diabetes mellitus intermediate card tender insulin use: with half-way use TIA (transient ischemic attack) G45.9 Mixed hyperlipidemia E78.2 Hyperlipidemia type: mixed hyperlipidemia Acquired hypothyroidism E03.9 Hypothyroidism type: acquired Chronic superficial gastritis without bleeding K29.30 Chronicity: chronic Gastritis bleeding: without bleeding Gastritis type: superficial Pituitary tumor D49.7
--- NOTE | 2025-07-12 12:32 | PM.MISC ---
Miscellaneous Note Purpose of Documentation: Culture results Note: Cultures have been checked, they continue to remain negative. There is no surgical plan at this point. Crystal evaluation has not yet been reported.
[2025-07-12 12:33] LABS: Hematocrit 32.7 % (36-47); Hemoglobin 9.50 g/dL (11.27-16.99); Mean Corpuscular HGB Conc 29.1 g/dL (30-55); Mean Corpuscular Hemoglobin 24.9 pg (27-33); Mean Corpuscular Volume 85.6 fl (85-98); Nucleated Red Blood Cells % 0.5 %; Platelet Count 212 10^3/cmm (157-399); Red Blood Count 3.82 10^6/uL (3.85-5.65); White Blood Count 5.93 10^3/uL (3.29-11.43)
[2025-07-12 12:50] LABS: Ferritin 79 ng/mL (15-150); Iron 23 ug/dL (37-145); Total Iron Binding Capacity 248 mcg/dl; Unsaturated Iron Binding 225 ug/dL (112-347)
[2025-07-12 13:10] LABS: Vitamin B12 > 2000 pg/mL (232-1245)
--- NOTE | 2025-07-12 15:04 | PC.SOCIAL ---
*IMM Update* Patient received Copy of IMM, initialed and dated in chart.
--- NOTE | 2025-07-12 19:53 | PC.NURSE ---
Patient's dexcom now reads 310.
--- NOTE | 2025-07-12 21:59 | PC.NURSE ---
Provider is updated that Ambika Simone her tramadol 50mg PO BID PRN is discontinued/not renewed. Can she have that back? She has pain 04/25. Provider reordered it. Order entered.
[2025-07-13] VITALS (7 sets, daily range): BP systolic 105–144; BP diastolic 59–74; PULSE 72–78; RESP 12–25; TEMP 35.9–36.6; O2SAT 92–97; BMI 33.8
[2025-07-13 04:11] LABS: Hematocrit 29.7 % (36-47); Hemoglobin 8.80 g/dL (11.27-16.99); Mean Corpuscular HGB Conc 29.6 g/dL (30-55); Mean Corpuscular Hemoglobin 24.6 pg (27-33); Mean Corpuscular Volume 83.0 fl (85-98); Nucleated Red Blood Cells % 0 %; Platelet Count 235 10^3/cmm (157-399); Red Blood Count 3.58 10^6/uL (3.85-5.65); White Blood Count 5.13 10^3/uL (3.29-11.43)
[2025-07-13] MEDS: metoprolol succinate ER (24 HR) 50 mg Tablet PO (04:17)
[2025-07-13] MEDS: pantoprazole 40 mg SDV IVP (04:18)
[2025-07-13 04:34] LABS: Alanine Aminotransferase 8 U/L (0-33); Albumin Level 2.7 g/dL (3.5-5.2); Alkaline Phosphatase 93 U/L (35-105); Anion Gap 19.2 (5-19); Aspartate Amino Transferase 9 U/L (0-32); Blood Urea Nitrogen 57 mg/dL (8-23); Calcium 8.2 mg/dL (8.5-10.5); Carbon Dioxide 20 mmol/L (22-29); Chloride 95 mmol/L (98-107); Creatinine Clr Calc Pharmacy 24.2439; Globulin 3.4 g/dL (1.3-4.6); Glucose 210 mg/dL (65-115); Osmolality Calculated 292 mOsm/kg (285-295); Potassium 4.2 mmol/L (3.5-5.1); Sodium 130 mmol/L (136-145); Total Protein 6.1 g/dL (6.6-8.7)
--- NOTE | 2025-07-13 06:40 | PC.NURSE ---
Patient has refused her lantus this morning. Dayshift nurse will get this in report and try again.
[2025-07-13] MEDS: cefTRIAXone 2,000 mg SDV 2000 MG IVP (09:04)
[2025-07-13] MEDS: insulin glargine 100 units/1 mL 3 UNIT SUBCUT (09:34)
--- NOTE | 2025-07-13 09:57 | P.PN_ITS ---
<Statement entered by Cori Sloan MD - 07/14/25 18:40> Patient was evaluated and cared for in conjunction with an advanced practice practitioner. I personally examined the patient and reviewed the chart and all pertinent data including imaging, telemetry, and laboratory results. I discussed the patient in detail with the advanced practice practitioner. Please see their note for complete H&P testing result and agreed upon plan of care for the patient. Subjective 2 Subjective: Doing well this morning, lungs clear. Creatinine improved to 2.4 today with IV fluids yesterday. Vitals/I&O/Wt Last Vital Signs Temp 97.9 F 07/13/25 07:29 Pulse 77 07/13/25 09:17 Resp 20 H 07/13/25 07:29 BP 106/59 07/13/25 07:29 Pulse Ox 94 07/13/25 09:17 O2 Del Method Room Air 07/13/25 09:17 O2 Flow Rate 2 07/11/25 10:00 07/12/25 07/13/25 07/13/25 22:59 06:59 14:59 Intake Total 240 / 240 Output Total 600 / 1000 400 / 1000 Balance -600 / -880 -400 / -880 240 / 240 Weight last 48 hrs Weight 216 lb 0.848 oz Weight 195 lb 12.328 oz Weight 195 lb 12.328 oz Physical Exam 2 Const: COMMON NORMALS: no acute distress and patient oriented x3 GENERAL APPEARANCE: cooperative and comfortable ORIENTATION/CONSCIOUSNESS: Yes awake, Yes oriented to person, Yes oriented to place and Yes oriented to time Chest: COMMONS NORMALS: normal inspection of the chest and normal palpation of entire chest wall CHEST: Yes Symmetrical chest wall rise Resp: COMMON NORMALS: normal respiratory effort, No retractions, No use of accessory muscles and clear to auscultation bilaterally EFFORT & INSPECTION: Yes symmetric chest movement AUSCULTATION: clear to auscultation bilaterally Cardio: COMMON NORMALS: regular rate, regular rhythm, S1 normal heart sound present, S2 normal heart sound present, No gallops present (Cardio), No clicks present (Cardio), No murmurs present (Cardio) and No rub (Cardio) RATE: r egular rate RHYTHM: regular rhythm HEART SOUNDS: S1 normal heart sound present and S2 normal heart sound present PERIPHERAL PULSES: radial pulses present Extremity: COMMON NORMALS: no pedal edema Neuro: COMMON NORMALS: patient oriented x3 and moves all extremities S ENSORIUM/ORIENTATION: Yes oriented to person, Yes oriented to place and Yes oriented to time Urinary Catheter Management: Bajwa: Cath Placed During This Visit: no Reason for Continuing Indwelling Catheter: Accurate Measurement of Urinary Output in Critically Ill Patients Data 07/13/25 03:45 07/13/25 03:45 Micro: Microbiology 07/08/25 23:06 Anaerobic Culture - Preliminary Knee - Synovial Fluid 07/08/25 23:06 Gram Stain - Final Synovial Fluid Body Fluid Culture - Final 07/11/25 13:00 Urine Culture - Preliminary Urine,Clean Catch Yeast species A&P Assessment and plan 1. Acute systolic heart failure: 2. Elevated troponin: 3. Ischemic cardiomyopathy: 4. Type 2 diabetes mellitus without complication, with long-term current use of insulin: 5. Acquired hypothyroidism: 6. Mixed hyperlipidemia: Plan: Renal function slowly improving, she was overdiuresed. Continue metoprolol succinate, aspirin, Xarelto, statin. Will increase IV fluids to 75mL/hr. Discussed with patient's family, she [facility] tumor. She can transfer there by ambulance, she will need cardiology and nephrology consultation once she arrives. Dr Sloan can provide information to her care team via phone if requested. From a cardiac perspective, she can continue aspirin, metoprolol succinate, Xarelto, atorvastatin. PDMP PDMP Reviewed: Not Reviewed Attestations 2 Medical Necessity Statement*: possible transfer tomorrow for pituitary tumor surgery Coding Level of Care Code Acute Code for [facility] Fwd Diagnoses Acute systolic heart failure I50.21 Elevated troponin R79.89 Ischemic cardiomyopathy I25.5 Type 2 diabetes mellitus without complication, with long-term current use of insulin E11.9; Z79.4 Diabetes mellitus complication status: without complication Diabetes mellitus seismometer operator insulin use: with half-way use Acquired hypothyroidism E03.9 Hypothyroidism type: acquired Mixed hyperlipidemia E78.2 Hyperlipidemia type: mixed hyperlipidemia
--- NOTE | 2025-07-13 10:39 | XR_ITS ---
WS: [id number] Exam: XR foot RT 2V [id number] Date/Time of Exam: 07/13/2025 10:59 AM Reason For Exam: 2nd toe swelling and to rule out fracture There is an impacted comminuted fracture of the distal end of the second proximal phalanx. Soft tissue swelling of the toe. No other obvious fractures. Mild degenerative changes. No soft tissue foreign bodies. IMPRESSION1. Impacted comminuted fracture of the distal end of the second proximal phalanx with soft tissue swelling of the second toe.
--- NOTE | 2025-07-13 10:43 | PM.PN ---
Subjective Subjective: Patient seen morning, lying without oxygen supplementation. Able to breathe in full sentences no respiratory distress Patient having right second toe swelling that has been there for a month. No pain or tenderness. Adequate peripheral pulses palpable Patient producing adequate amount of urine attached with the Bajwa's catheter Medications: Medication Review Details: Current Medications Acetaminophen (Acetaminophen 325 Mg Tablet) 650 mg PO Q6H PRN PRN Reason: Mild/Mod Pain Or Temp >/= 101 Last Admin: 07/08/25 23:31 Dose: 650 mg Aminophylline (Aminophylline 25 Mg/Ml Sdv 20 Ml) 25 mg IVP Q2M PRN PRN Reason: see dose instructions Stop: 07/10/25 06:35 Aspirin (Aspirin 81 Mg Ec Tablet) 81 mg PO DAILY [facility] Last Admin: 07/09/25 05:29 Dose: 81 mg Baclofen (Baclofen 10 Mg Tablet) 5 mg PO BID PRN PRN Reason: muscle spasm Ceftriaxone Sodium (Ceftriaxone 2,000 Mg Sdv) 2,000 mg IVP Q24H [facility] Desvenlafaxine (Desvenlafaxine 50 Mg Tablet) 50 mg PO DAILY [facility] Last Admin: 07/09/25 05:29 Dose: 50 mg Furosemide (Furosemide 10 Mg/Ml Sdv 10ml) 60 mg IVP Q12H [facility] Last Admin: 07/08/25 20:27 Dose: 60 mg Glucagon (Glucagon 1 Mg/Ml Kit 1 Ml) 1 mg IM ONCE PRN; Protocol PRN Reason: Adult Acute Hypoglycemia Nursing Prot. Heparin Sodium (Porcine) (Heparin 5,000 Unit/Ml Inj 1 Ml) 0 unit IVP PRN PRN; Protocol PRN Reason: Heparin Weight Based Protocol -Subsequent Bolus Azithromycin 500 mg/ Sodium (Chloride) 250 mls @ 250 mls/hr IV Q24H [facility]; Protocol Last Infusion: 07/08/25 10:44 Dose: Infused Heparin Sodium/Sodium Chloride (Heparin Drip) 25,000 unit in 500 mls @ 21.228 mls/hr IV CONT [facility]; Protocol Last Admin: 07/08/25 23:35 Dose: 10.74 unit/kg/hr, 19 mls/hr Dextrose (D5w) 500 mls @ 0 mls/hr IV ONCE PRN; Protocol PRN Reason: Adult Acute Hypoglycemia Prot Dextrose (D10w) 125 mls @ 750 mls/hr IV PRN PRN; Protocol PRN Reason: Adult Acute Hypoglycemia Nursing Protocol Dextrose (D10w) 250 mls @ 1,000 mls/hr IV PRN PRN; Protocol PRN Reason: Adult Acute Hypoglycemia Nursing Protocol Vancomycin HCl (Vancocin) 2,000 mg in 400 mls @ 200 mls/hr IV ONCE ONE Stop: 07/09/25 10:59 Insulin Human Lispro (Insulin Lispro 100 Unit/1 Ml) 0 unit SUBCUT WM&BEDTIME [facility]; Protocol Last Admin: 07/09/25 09:30 Dose: Not Given Levothyroxine Sodium (Levothyroxine 88 Mcg Tablet) 88 mcg PO DAILY [facility] Last Admin: 07/09/25 05:29 Dose: 88 mcg Metoprolol Succinate (Metoprolol Succinate Er (24 Hr) 50 Mg Tablet) 50 mg PO DAILY [facility] Last Admin: 07/09/25 05:29 Dose: 50 mg Nitroglycerin (Nitroglycerin 0.4 Mg Sublingual Tablet) 0.4 mg SUBLINGUAL Q5M PRN PRN Reason: CHEST PAIN Stop: 07/10/25 06:35 Ondansetron HCl (Ondansetron 2 Mg/Ml Sdv 2 Ml) 4 mg IVP Q8H PRN PRN Reason: vomiting, or N/V if npo Ondansetron HCl (Ondansetron 2 Mg/Ml Sdv 2 Ml) 4 mg IVP Q2M PRN PRN Reason: NAUSEA Pantoprazole Sodium (Pantoprazole 40 Mg Sdv) 40 mg IVP DAILY [facility] Last Admin: 07/09/25 05:29 Dose: 40 mg Tramadol HCl (Tramadol 50 Mg Tablet) 50 mg PO BID PRN PRN Reason: MODERATE PAIN Last Admin: 07/08/25 20:44 Dose: 50 mg Vancomycin HCl (Vancomycin 1,000 Mg Sdv (Pharmacy Mix)) 0 mg XX PRN PRN PRN Reason: Pharmacy to Dose Vitals/I&O/Wt Last Vital Signs Temp 97.9 F 07/13/25 07:29 Pulse 77 07/13/25 09:17 Resp 20 H 07/13/25 07:29 BP 106/59 07/13/25 07:29 Pulse Ox 94 07/13/25 09:17 O2 Del Method Room Air 07/13/25 09:17 O2 Flow Rate 2 07/11/25 10:00 07/12/25 07/13/25 07/13/25 22:59 06:59 14:59 Intake Total 240 / 240 Output Total 600 / 600 400 / 1000 Balance -600 / -480 -400 / -880 240 / 240 Weight last 48 hrs Weight 98 kg Weight 88.8 kg Weight 88.8 kg Physical Exam Narrative: General: Alert and oriented, lying comfortably without any distress off oxygen however without any distress and able to speak in full sentences HEENT: Normocephalic, atraumatic, grossly unremarkable exam Cardio: normal rate rhythm, normal S1-S2 without any murmurs, Respiratory: Equal air entry without any crackles wheezing or stridor GI: Abdomen soft, nontender, nondistended, normoactive bowel sounds present all 4 quadrants, Neuro: intact cranial nerves motor and sensory and cerebellar/coordination function without any focal neurological deficit Behavior: Appropriate and cooperative Extremities/skin: Adequate palpable pulses, left knee swelling currently better, mild with improvement in her range of motion, mild trace pedal edema, having right second toe chronic swelling without any tenderness Urinary Catheter Management: Bajwa: Cath Placed During This Visit: no Reason for Continuing Indwelling Catheter: Accurate Measurement of Urinary Output in Critically Ill Patients Data 07/13/25 03:45 07/13/25 03:45 Micro: Microbiology 07/08/25 23:06 Anaerobic Culture - Preliminary Knee - Synovial Fluid 07/08/25 23:06 Gram Stain - Final Synovial Fluid Body Fluid Culture - Final 07/11/25 13:00 Urine Culture - Preliminary Urine,Clean Catch Yeast species A&P Assessment and plan 1. Acute hypoxemic respiratory failure: -Secondary to heart failure with reduced ejection fraction, nuclear scan showed fixed defect. - Possible pneumonia and already received antibiotics ceftriaxone and azithromycin - Cardiology on board and prescribed GDMT however due to renal derangements medications are being adjusted -Introduction of losartan and dapagliflozin/SGLT2 inhibitors affected kidneys therefore held. - Hold diuretics and continue gentle hydration since the patient renal functions are improving and likely for diarrhea secondary to dehydration. -Regular intake and output monitoring -Daily weight base analysis -Telemetry monitoring 2. Acute congestive heart failure: Continue aspirin statin and beta-joe Rest of the GDMT is not tolerated considering patient renal functions dear ranged Continue telemetry monitoring 3. Ischemic cardiomyopathy: In view of the severe LV dysfunction, patient carries a higher risk for malignant ventricular arrhythmia. Discussed about prophylactic external defibrillator. Patient has decided not to have it. She seems to understand implications. Cardiology on board for further management 4. Pneumonia involving right lung: Patient completed azithromycin and ceftriaxone to continue till 15 July Currently improving fever episode as of now and shortness of breath is improving Continue incentive spirometry 5. Swelling of toe of right foot: XR of the right foot, follow report 6. Acute kidney injury superimposed on CKD: Medications adjusted due to renal dysfunction Avoid nephrotoxic medications. Monitor intake and output with renal parameters, Ultrasound kidneys did not show any features of renal parenchymal disease or any postobstructive features urine studies showed increased microalbumin to creatinine ratio with some yeast however considering patient asymptomatic no indication to treat yeast in the urine. Urine culture did not show any bacterial growth Correction and monitor for electrolytes 7. Hyperkalemia: Currently resolved continue to monitor 8. Non-ST elevation [place] (NSTEMI): Likely type II separate troponin trend was more of in the bloody range without any chest pain or chest pressure Nuclear scan showed fixed defect of the myocardium. Cardiology on board and follow the plan 9. Primary hypertension: Currently the blood pressure is in the normal range. May continue on the current medications. 10. Septic arthritis of knee: Ortho on board, crystals awaited from the arthrocentesis from the left knee Adequate analgesia 11. Paroxysmal atrial fibrillation: Rivaroxaban and to continue at home Metoprolol 50 mg daily 12. Urinary tract infection: Patient UA analysis showed no bacterial growth however yeast and therefore to monitor No indication to treat UTI since the patient is having no symptoms 13. Type 2 diabetes mellitus without complication, with long-term current use of insulin: Glucose levels getting better, however having glucose less than 100 in the range of 80s in the morning, reduce the dose of glargine to 3 units and continue sliding scale Keep the glucose in the range of 140-180 as inpatient Low-carb diet. 14. TIA (transient ischemic attack): Continue aspirin and statins home dose 15. Mixed hyperlipidemia: Patient may be continued on the lipid-lowering agents. 16. Acquired hypothyroidism: Continue levothyroxine 88 mcg daily as per home medication 17. Chronic superficial gastritis without bleeding: PPI daily 18. Pituitary tumor: Patient is scheduled to have surgery at the [facility] in [place]. PDMP PDMP Reviewed: Not Reviewed Attestations Medical Necessity Statement*: Patient will stay more than 2 midnights for the optimization of her OLIMPIA on CKD, heart failure with reduced ejection fraction and right knee effusion s/p arthrocentesis Time Spent in Patient Care: 16 - 35 minutes (>than 50% of time spent in counselling and/or direct pt care on unit). Critical Care Time: The high probability of a clinically significant, sudden or life threatening deterioration, as referenced in this documentation, required my full and direct attention, intervention and personal management. The critical care time shown is in addition to time spent performing any reported separately billable procedures and includes the following: [x] Data and vital sign review and interpretation [x] Patient assessment, examination and intervention [x] Medication orders and management [x] Patient/Family updates as able [x] Care Coordination and Documentation. Critical Care Time (min): 35 Other Attestations: Patient condition has been discussed at length with the patient/family, I have independently reviewed the chart labs imaging/diagnostics/EKG. the goals of care and code status with the patient/family/NOK/legal industrial relations representative, and documented accordingly. The patient/family has been informed about the current condition and further plan of care. Agreed with the plan of care and understood without any language barrier. Every effort was made to ensure accuracy of chucking machine operator. Any obvious errors or omissions should be clarified with the author of the document. Coding Level of Care Code Critical Care >/= 30 minutes Diagnoses Acute hypoxemic respiratory failure J96.01 Acute congestive heart failure I50.9 Ischemic cardiomyopathy I25.5 Pneumonia involving right lung J18.9 Lung location: unspecified part of lung Pneumonia type: due to unspecified organism Swelling of toe of right foot M79.89 Acute kidney injury superimposed on CKD N17.9; N18.9 Hyperkalemia E87.5 Non-ST elevation [place] (NSTEMI) I21.4 Primary hypertension I10 Hypertension type: primary hypertension Septic arthritis of knee M00.9 Paroxysmal atrial fibrillation I48.0 Atrial fibrillation type: paroxysmal Urinary tract infection N39.0 Hematuria presence: without hematuria Urinary tract infection type: site unspecified Type 2 diabetes mellitus without complication, with long-term current use of insulin E11.9; Z79.4 Diabetes mellitus terminal operator insulin use: with terminal operator use Diabetes mellitus complication status: without complication TIA (transient ischemic attack) G45.9 Mixed hyperlipidemia E78.2 Hyperlipidemia type: mixed hyperlipidemia Acquired hypothyroidism E03.9 Hypothyroidism type: acquired Chronic superficial gastritis without bleeding K29.30 Gastritis type: superficial Chronicity: chronic Gastritis bleeding: without bleeding Pituitary tumor D49.7
--- NOTE | 2025-07-13 15:45 | PM.PN ---
Subjective Subjective: Patient is seen in the room with her daughter. She is doing well and has been working with physical therapy. She has pain with weightbearing secondary to arthritis in both of her knees. Medications: Reviewed: Yes Medication Review Details: Current Medications Acetaminophen (Acetaminophen 325 Mg Tablet) 650 mg PO Q6H PRN PRN Reason: Mild/Mod Pain Or Temp >/= 101 Last Admin: 07/08/25 23:31 Dose: 650 mg Aminophylline (Aminophylline 25 Mg/Ml Sdv 20 Ml) 25 mg IVP Q2M PRN PRN Reason: see dose instructions Stop: 07/10/25 06:35 Aspirin (Aspirin 81 Mg Ec Tablet) 81 mg PO DAILY [facility] Last Admin: 07/09/25 05:29 Dose: 81 mg Baclofen (Baclofen 10 Mg Tablet) 5 mg PO BID PRN PRN Reason: muscle spasm Ceftriaxone Sodium (Ceftriaxone 2,000 Mg Sdv) 2,000 mg IVP Q24H [facility] Desvenlafaxine (Desvenlafaxine 50 Mg Tablet) 50 mg PO DAILY [facility] Last Admin: 07/09/25 05:29 Dose: 50 mg Furosemide (Furosemide 10 Mg/Ml Sdv 10ml) 60 mg IVP Q12H [facility] Last Admin: 07/08/25 20:27 Dose: 60 mg Glucagon (Glucagon 1 Mg/Ml Kit 1 Ml) 1 mg IM ONCE PRN; Protocol PRN Reason: Adult Acute Hypoglycemia Nursing Prot. Heparin Sodium (Porcine) (Heparin 5,000 Unit/Ml Inj 1 Ml) 0 unit IVP PRN PRN; Protocol PRN Reason: Heparin Weight Based Protocol -Subsequent Bolus Azithromycin 500 mg/ Sodium (Chloride) 250 mls @ 250 mls/hr IV Q24H [facility]; Protocol Last Infusion: 07/08/25 10:44 Dose: Infused Heparin Sodium/Sodium Chloride (Heparin Drip) 25,000 unit in 500 mls @ 21.228 mls/hr IV CONT [facility]; Protocol Last Admin: 07/08/25 23:35 Dose: 10.74 unit/kg/hr, 19 mls/hr Dextrose (D5w) 500 mls @ 0 mls/hr IV ONCE PRN; Protocol PRN Reason: Adult Acute Hypoglycemia Prot Dextrose (D10w) 125 mls @ 750 mls/hr IV PRN PRN; Protocol PRN Reason: Adult Acute Hypoglycemia Nursing Protocol Dextrose (D10w) 250 mls @ 1,000 mls/hr IV PRN PRN; Protocol PRN Reason: Adult Acute Hypoglycemia Nursing Protocol Vancomycin HCl (Vancocin) 2,000 mg in 400 mls @ 200 mls/hr IV ONCE ONE Stop: 07/09/25 10:59 Insulin Human Lispro (Insulin Lispro 100 Unit/1 Ml) 0 unit SUBCUT WM&BEDTIME [facility]; Protocol Last Admin: 07/09/25 09:30 Dose: Not Given Levothyroxine Sodium (Levothyroxine 88 Mcg Tablet) 88 mcg PO DAILY [facility] Last Admin: 07/09/25 05:29 Dose: 88 mcg Metoprolol Succinate (Metoprolol Succinate Er (24 Hr) 50 Mg Tablet) 50 mg PO DAILY [facility] Last Admin: 07/09/25 05:29 Dose: 50 mg Nitroglycerin (Nitroglycerin 0.4 Mg Sublingual Tablet) 0.4 mg SUBLINGUAL Q5M PRN PRN Reason: CHEST PAIN Stop: 07/10/25 06:35 Ondansetron HCl (Ondansetron 2 Mg/Ml Sdv 2 Ml) 4 mg IVP Q8H PRN PRN Reason: vomiting, or N/V if npo Ondansetron HCl (Ondansetron 2 Mg/Ml Sdv 2 Ml) 4 mg IVP Q2M PRN PRN Reason: NAUSEA Pantoprazole Sodium (Pantoprazole 40 Mg Sdv) 40 mg IVP DAILY [facility] Last Admin: 07/09/25 05:29 Dose: 40 mg Tramadol HCl (Tramadol 50 Mg Tablet) 50 mg PO BID PRN PRN Reason: MODERATE PAIN Last Admin: 07/08/25 20:44 Dose: 50 mg Vancomycin HCl (Vancomycin 1,000 Mg Sdv (Pharmacy Mix)) 0 mg XX PRN PRN PRN Reason: Pharmacy to Dose Vitals/I&O/Wt Last Vital Signs Temp 97.8 F 07/13/25 11:32 Pulse 78 07/13/25 11:32 Resp 18 07/13/25 11:32 BP 105/71 07/13/25 11:32 Pulse Ox 94 07/13/25 11:32 O2 Del Method Room Air 07/13/25 09:17 O2 Flow Rate 2 07/11/25 10:00 07/13/25 07/13/25 07/13/25 06:59 14:59 22:59 Intake Total 789.167 / 789.167 105 / 894.167 Output Total 400 / 1000 Balance -400 / -880 789.167 / 789.167 105 / 894.167 Weight last 48 hrs Weight 216 lb 0.848 oz Weight 195 lb 12.328 oz Weight 195 lb 12.328 oz Physical Exam Const: COMMON NORMALS: no acute distress, average body habitus, patient oriented x3 and alert GENERAL APPEARANCE: cooperative and comfortable ORIENTATION/CONSCIOUSNESS: Yes awake HENMT: COMMON NORMALS: normocephalic and atraumatic HEAD & SCALP: normocephalic and atraumatic Eye: GENERAL EYE: appearance normal, both eyes and all related structures Chest: COMMONS NORMALS: normal inspection of the chest Resp: COMMON NORMALS: normal respiratory effort EFFORT & INSPECTION: Yes able to speak in complete sentences and Yes symmetric chest movement Extremity: LEFT LOWER EXTREMITY: Yes knee joint (There is no erythema.) Left knee: Yes inspection (Minimal swelling), Yes palpation (Slight palpable fluid), Yes ROM (Able to flex and extend with minimal patient) and Yes neurovascular exam (No evidence of DVT) Neuro: COMMON NORMALS: patient oriented x3 SENSORIUM/ORIENTATION: Yes alert Psych: COMMON NORMALS: mental status grossly normal APPEARANCE: Yes grossly normal ATTITUDE: Yes calm and Yes engaged ATTENTION/CONCENTRATION: Yes attention grossly intact Skin: COMMON NORMALS: no rashes or lesions noted GENERAL SKIN EXAM: no rashes or lesions noted Urinary Catheter Management: Bajwa: Cath Placed During This Visit: no Reason for Continuing Indwelling Catheter: Accurate Measurement of Urinary Output in Critically Ill Patients Data 07/13/25 03:45 07/13/25 03:45 Micro: Microbiology 07/08/25 23:06 Anaerobic Culture - Preliminary Knee - Synovial Fluid 07/08/25 23:06 Gram Stain - Final Synovial Fluid Body Fluid Culture - Final A&P Assessment and plan 1. Effusion, left knee: Patient's joint aspiration remains negative for growth. She has improved significantly. She is able to spontaneously move her knee with minimal discomfort. She continues with a slight effusion consistent with her arthritis. Pathology demonstrates calcium oxalate crystals consistent with pseudogout. Patient is with her daughter in the room, and this is explained to them. I also advised them that I would like to see them in the office to obtain a Synovasure study on the knee. I explained to them that 60+ thousand white blood cells is a little concerning and greater than he would normally see with pseudogout. We will be looking for bacterial ID with the Synovasure kit. 2. Primary osteoarthritis of left knee: To be further evaluated in the office following resolution of her pituitary issues. PDMP PDMP Reviewed: Not Reviewed Attestations Medical Necessity Statement*: Per hospitalist team Coding Level of Care Code Acute Code for [facility] Fwd Diagnoses Effusion, left knee M25.462 Primary osteoarthritis of left knee M17.12
[2025-07-13] MEDS: lidocaine 2% jelly 1 APPLIC/6 ML TUBE TOPICAL (17:36)
[2025-07-14] VITALS (7 sets, daily range): BP systolic 113–138; BP diastolic 61–73; PULSE 68–86; RESP 12–22; TEMP 35.8–36.7; O2SAT 92–98; BMI 32.5
[2025-07-14 04:04] LABS: Hematocrit 29.2 % (36-47); Hemoglobin 8.80 g/dL (11.27-16.99); Mean Corpuscular HGB Conc 30.1 g/dL (30-55); Mean Corpuscular Hemoglobin 25.1 pg (27-33); Mean Corpuscular Volume 83.2 fl (85-98); Nucleated Red Blood Cells % 0 %; Platelet Count 223 10^3/cmm (157-399); Red Blood Count 3.51 10^6/uL (3.85-5.65); White Blood Count 6.68 10^3/uL (3.29-11.43)
[2025-07-14 04:35] LABS: Alanine Aminotransferase 8 U/L (0-33); Albumin Level 2.9 g/dL (3.5-5.2); Alkaline Phosphatase 105 U/L (35-105); Anion Gap 17.1 (5-19); Aspartate Amino Transferase 11 U/L (0-32); Blood Urea Nitrogen 49 mg/dL (8-23); Calcium 8.4 mg/dL (8.5-10.5); Carbon Dioxide 21 mmol/L (22-29); Chloride 97 mmol/L (98-107); Creatinine Clr Calc Pharmacy 32.1787; Globulin 3.7 g/dL (1.3-4.6); Glucose 251 mg/dL (65-115); Osmolality Calculated 293 mOsm/kg (285-295); Potassium 4.1 mmol/L (3.5-5.1); Sodium 131 mmol/L (136-145); Total Protein 6.6 g/dL (6.6-8.7)
[2025-07-14] MEDS: metoprolol succinate ER (24 HR) 50 mg Tablet PO (04:42)
[2025-07-14] MEDS: pantoprazole 40 mg SDV IVP (04:42)
--- NOTE | 2025-07-14 08:45 | P.PN_ITS ---
<Statement entered by Cori Sloan MD - 07/14/25 21:29> Patient was evaluated and cared for in conjunction with an advanced practice practitioner. I personally examined the patient and reviewed the chart and all pertinent data including imaging, telemetry, and laboratory results. I discussed the patient in detail with the advanced practice practitioner. Please see their note for complete H&P testing result and agreed upon plan of care for the patient. GENERAL: Patient is alert, awake and oriented x3. HEART: Regular S1 and S2. No murmur, rub or gallop. LUNGS: Clear to auscultate bilaterally. CENTRAL NERVOUS SYSTEM: Grossly nonfocal. EXTREMITIES: Lower extremities with out edema bilaterally. 1. Acute on chronic decompensated systolic heart failure now compensated 2. Elevated troponin: 3. Ischemic cardiomyopathy: 4. Acute on chronic kidney disease 5. Acquired hypothyroidism: 6. Mixed hyperlipidemia: 7. Pituitary tumor 8. Anemia Continue holding diuretics, creatinine is improving Plan to reintroduce Entresto Plan to use Lasix as needed basis Patient has surgery scheduled at [facility], patient's family is going to talk to the surgeon there as patient can be transferred down there so that she can be condition before the surgery with the help of cardiology team there as she is stable Subjective 2 Subjective: She developed some orthopnea overnight, IV fluids stopped. Her creatinine is much improved, down to 1.9 from 2.4 yesterday and 2.8 two days ago. No chest pain or pressure. No LE edema. Vitals/I&O/Wt Last Vital Signs Temp 98.0 F 07/14/25 07:59 Pulse 68 07/14/25 07:59 Resp 17 07/14/25 07:59 BP 121/65 07/14/25 07:59 Pulse Ox 95 07/14/25 07:59 O2 Del Method Room Air 07/14/25 03:29 O2 Flow Rate 2 07/11/25 10:00 07/13/25 07/14/25 07/14/25 22:59 06:59 14:59 Intake Total 585 / 2269.167 895 / 2269.167 Output Total 650 / 1300 650 / 1300 Balance -65 / 969.167 245 / 969.167 Weight last 48 hrs Weight 208 lb 1.862 oz Weight 216 lb 0.848 oz Physical Exam 2 Const: COMMON NORMALS: no acute distress and patient oriented x3 GENERAL APPEARANCE: cooperative and comfortable ORIENTATION/CONSCIOUSNESS: Yes awake, Yes oriented to person, Yes oriented to place and Yes oriented to time Chest: COMMONS NORMALS: normal inspection of the chest and normal palpation of entire chest wall CHEST: Yes Symmetrical chest wall rise Resp: COMMON NORMALS: normal respiratory effort, No retractions, No use of accessory muscles and clear to auscultation bilaterally EFFORT & INSPECTION: Yes symmetric chest movement AUSCULTATION: clear to auscultation bilaterally Cardio: COMMON NORMALS: regular rate, regular rhythm, S1 normal heart sound present, S2 normal heart sound present, No gallops present (Cardio), No clicks present (Cardio), No murmurs present (Cardio) and No rub (Cardio) RATE: r egular rate RHYTHM: regular rhythm HEART SOUNDS: S1 normal heart sound present and S2 normal heart sound present PERIPHERAL PULSES: radial pulses present Extremity: COMMON NORMALS: no pedal edema Neuro: COMMON NORMALS: patient oriented x3 and moves all extremities S ENSORIUM/ORIENTATION: Yes oriented to person, Yes oriented to place and Yes oriented to time Urinary Catheter Management: Bajwa: Cath Placed During This Visit: no Reason for Continuing Indwelling Catheter: Accurate Measurement of Urinary Output in Critically Ill Patients Data 07/14/25 03:25 07/14/25 03:25 Micro: Microbiology 07/08/25 23:06 Anaerobic Culture - Preliminary Knee - Synovial Fluid A&P Assessment and plan 1. Acute systolic heart failure: 2. Elevated troponin: 3. Ischemic cardiomyopathy: 4. Type 2 diabetes mellitus without complication, with long-term current use of insulin: 5. Acquired hypothyroidism: 6. Mixed hyperlipidemia: Plan: She appears euvolemic. She is rescheduling her surgery consultation today so will not need transfer to [facility] for the pituitary tumor. Likely discharge today. Continue aspirin, statin, Xarelto, metoprolol succinate 50mg daily. She can take Lasix 20mg daily as needed only for weight gain greater than 3# in 24 hours or 5# in a week. Will also recommend low dose Entresto 24/26mg BID, will check labs at outpatient visit in 2 weeks. PDMP PDMP Reviewed: Not Reviewed Attestations 2 Medical Necessity Statement*: possible discharge today Coding Level of Care Code Acute Code for [facility] Fwd Diagnoses Acute systolic heart failure I50.21 Elevated troponin R79.89 Ischemic cardiomyopathy I25.5 Type 2 diabetes mellitus without complication, with long-term current use of insulin E11.9; Z79.4 Diabetes mellitus complication status: without complication Diabetes mellitus retirement insulin use: with retirement use Acquired hypothyroidism E03.9 Hypothyroidism type: acquired Mixed hyperlipidemia E78.2 Hyperlipidemia type: mixed hyperlipidemia
[2025-07-14] MEDS: insulin glargine 100 units/1 mL 3 UNIT SUBCUT (09:16)
[2025-07-14] MEDS: cefTRIAXone 1,000 mg SDV 1000 MG IVP (09:17)
--- NOTE | 2025-07-14 12:28 | P.PN_ITS ---
Subjective 2 Subjective: the patient has been on Iv fluids that improved her renal parameters and back to more or less baseline. However since she has Heart failure and therefore developed mild Orthopnea and PND, 20mg iv lasix givem and to re-assess. However she has been saturating above 98% with 2 L nc Medications: Reviewed: Yes Medication Review Details: Current Medications Acetaminophen (Acetaminophen 325 Mg Tablet) 650 mg PO Q6H PRN PRN Reason: Mild/Mod Pain Or Temp >/= 101 Last Admin: 07/08/25 23:31 Dose: 650 mg Aminophylline (Aminophylline 25 Mg/Ml Sdv 20 Ml) 25 mg IVP Q2M PRN PRN Reason: see dose instructions Stop: 07/10/25 06:35 Aspirin (Aspirin 81 Mg Ec Tablet) 81 mg PO DAILY LIZETT Last Admin: 07/09/25 05:29 Dose: 81 mg Baclofen (Baclofen 10 Mg Tablet) 5 mg PO BID PRN PRN Reason: muscle spasm Ceftriaxone Sodium (Ceftriaxone 2,000 Mg Sdv) 2,000 mg IVP Q24H [facility] Desvenlafaxine (Desvenlafaxine 50 Mg Tablet) 50 mg PO DAILY LIZETT Last Admin: 07/09/25 05:29 Dose: 50 mg Furosemide (Furosemide 10 Mg/Ml Sdv 10ml) 60 mg IVP Q12H LIZETT Last Admin: 07/08/25 20:27 Dose: 60 mg Glucagon (Glucagon 1 Mg/Ml Kit 1 Ml) 1 mg IM ONCE PRN; Protocol PRN Reason: Adult Acute Hypoglycemia Nursing Prot. Heparin Sodium (Porcine) (Heparin 5,000 Unit/Ml Inj 1 Ml) 0 unit IVP PRN PRN; Protocol PRN Reason: Heparin Weight Based Protocol -Subsequent Bolus Azithromycin 500 mg/ Sodium (Chloride) 250 mls @ 250 mls/hr IV Q24H LIZETT; Protocol Last Infusion: 07/08/25 10:44 Dose: Infused Heparin Sodium/Sodium Chloride (Heparin Drip) 25,000 unit in 500 mls @ 21.228 mls/hr IV CONT LIZETT; Protocol Last Admin: 07/08/25 23:35 Dose: 10.74 unit/kg/hr, 19 mls/hr Dextrose (D5w) 500 mls @ 0 mls/hr IV ONCE PRN; Protocol PRN Reason: Adult Acute Hypoglycemia Prot Dextrose (D10w) 125 mls @ 750 mls/hr IV PRN PRN; Protocol PRN Reason: Adult Acute Hypoglycemia Nursing Protocol Dextrose (D10w) 250 mls @ 1,000 mls/hr IV PRN PRN; Protocol PRN Reason: Adult Acute Hypoglycemia Nursing Protocol Vancomycin HCl (Vancocin) 2,000 mg in 400 mls @ 200 mls/hr IV ONCE ONE Stop: 07/09/25 10:59 Insulin Human Lispro (Insulin Lispro 100 Unit/1 Ml) 0 unit SUBCUT WM&BEDTIME LIZETT; Protocol Last Admin: 07/09/25 09:30 Dose: Not Given Levothyroxine Sodium (Levothyroxine 88 Mcg Tablet) 88 mcg PO DAILY [facility] Last Admin: 07/09/25 05:29 Dose: 88 mcg Metoprolol Succinate (Metoprolol Succinate Er (24 Hr) 50 Mg Tablet) 50 mg PO DAILY [facility] Last Admin: 07/09/25 05:29 Dose: 50 mg Nitroglycerin (Nitroglycerin 0.4 Mg Sublingual Tablet) 0.4 mg SUBLINGUAL Q5M PRN PRN Reason: CHEST PAIN Stop: 07/10/25 06:35 Ondansetron HCl (Ondansetron 2 Mg/Ml Sdv 2 Ml) 4 mg IVP Q8H PRN PRN Reason: vomiting, or N/V if npo Ondansetron HCl (Ondansetron 2 Mg/Ml Sdv 2 Ml) 4 mg IVP Q2M PRN PRN Reason: NAUSEA Pantoprazole Sodium (Pantoprazole 40 Mg Sdv) 40 mg IVP DAILY [facility] Last Admin: 07/09/25 05:29 Dose: 40 mg Tramadol HCl (Tramadol 50 Mg Tablet) 50 mg PO BID PRN PRN Reason: MODERATE PAIN Last Admin: 07/08/25 20:44 Dose: 50 mg Vancomycin HCl (Vancomycin 1,000 Mg Sdv (Pharmacy Mix)) 0 mg XX PRN PRN PRN Reason: Pharmacy to Dose Vitals/I&O/Wt Last Vital Signs Temp 98.0 F 07/14/25 07:59 Pulse 68 07/14/25 07:59 Resp 17 07/14/25 07:59 BP 121/65 07/14/25 07:59 Pulse Ox 95 07/14/25 07:59 O2 Del Method Room Air 07/14/25 03:29 O2 Flow Rate 2 07/11/25 10:00 07/13/25 07/14/25 07/14/25 22:59 06:59 14:59 Intake Total 585 / 1374.167 895 / 2269.167 360 / 360 Output Total 650 / 650 650 / 1300 Balance -65 / 724.167 245 / 969.167 360 / 360 Weight last 48 hrs Weight 94.4 kg Weight 98 kg Physical Exam 2 Narrative: General: Alert and oriented, sitting comfortably at the edge of the bed, with 2L NC and able to speak in full sentences without any distress HEENT: Normocephalic, atraumatic, grossly unremarkable exam Cardio: normal rate rhythm, normal S1-S2 without any murmurs, Respiratory: Equal air entry with mild inspiratory crepts at the bases and without any wheezing or stridor GI: Abdomen soft, nontender, nondistended, normoactive bowel sounds present all 4 quadrants, Neuro: intact cranial nerves motor and sensory and cerebellar/coordination function without any focal neurological deficit Behavior: Appropriate and cooperative Extremities/skin: Adequate palpable pulses, left knee swelling currently better, mild with improvement in her range of motion, mild trace pedal edema, having right second toe chronic swelling without any tenderness Urinary Catheter Management: Bajwa: Cath Placed During This Visit: no Reason for Continuing Indwelling Catheter: Accurate Measurement of Urinary Output in Critically Ill Patients Data 07/14/25 03:25 07/14/25 03:25 Micro: Microbiology 07/08/25 23:06 Anaerobic Culture - Preliminary Knee - Synovial Fluid A&P Assessment and plan 1. Acute hypoxemic respiratory failure: -Secondary to heart failure with reduced ejection fraction, nuclear scan showed fixed defect. - Possible pneumonia and already received antibiotics ceftriaxone and azithromycin - Cardiology on board and prescribed GDMT however due to renal derangements medications are being adjusted -continue on BB and aspirin and statins, rest medications to introduce slowly since she had renal injury -Regular intake and output monitoring -Daily weight base analysis -Telemetry monitoring 2. Acute congestive heart failure: having some features of fluid overload today, to give 20mg iv lasix and to monitor. hold fluids Continue aspirin statin and beta-joe Rest of the GDMT is not tolerated considering patient renal functions dear ranged Continue telemetry monitoring 3. Ischemic cardiomyopathy: In view of the severe LV dysfunction, patient carries a higher risk for malignant ventricular arrhythmia. Discussed about prophylactic external defibrillator. Patient has decided not to have it. She seems to understand implications. Cardiology on board for further management 4. Pneumonia involving right lung: Patient completed azithromycin and ceftriaxone to continue till 15 July Currently improving fever episode as of now and shortness of breath is improving Continue incentive spirometry 5. Swelling of toe of right foot: XR of the right foot, reported to have small fracture consulted podiatry and to follow the plan outpatient homicide squad commanding officer referral 6. Acute kidney injury superimposed on CKD: resolved after adequate hydration Medications adjusted due to renal dysfunction Avoid nephrotoxic medications. Monitor intake and output with renal parameters, Ultrasound kidneys did not show any features of renal parenchymal disease or any postobstructive features urine studies showed increased microalbumin to creatinine ratio with some yeast however considering patient asymptomatic no indication to treat yeast in the urine. Urine culture did not show any bacterial growth Correction and monitor for electrolytes 7. Hyperkalemia: Currently resolved continue to monitor 8. Non-ST elevation DE (NSTEMI): Likely type II separate troponin trend was more of in the bloody range without any chest pain or chest pressure Nuclear scan showed fixed defect of the myocardium. Cardiology on board and follow the plan 9. Primary hypertension: Currently the blood pressure is in the normal range and sometimes on the softer side. cont to monitor and hold on to any anti HTN medications 10. Pyogenic arthritis of left knee joint, due to unspecified organism: Ortho on board, cyrstal were found to be of psudogout and ortho onboard, Dr Stinson informed to have a referral with FU with her at her clinic as outpatient for further DNA analysis for micro organims since her fluid WBCs were signficant. there was no organism growth from the sample, pt overall improved likely inflammatory arthritis. continue to monitor and adequate analgesia 11. Paroxysmal atrial fibrillation: Rivaroxaban and to continue at home Metoprolol 50 mg daily 12. Type 2 diabetes mellitus without complication, with long-term current use of insulin: continue insulin S/S and insulin glargine 3 units am Keep the glucose in the range of 140-180 as inpatient Low-carb diet. 13. TIA (transient ischemic attack): Continue aspirin and statins home dose 14. Mixed hyperlipidemia: Patient may be continued on the lipid-lowering agents. 15. Acquired hypothyroidism: Continue levothyroxine 88 mcg daily as per home medication 16. Chronic superficial gastritis without bleeding: PPI daily 17. Pituitary tumor: Patient is scheduled to have surgery at the [facility] in [place] and to follow it as outpatient after stabilization from her current clinical condition PDMP PDMP Reviewed: Not Reviewed Attestations 2 Medical Necessity Statement*: Patient will stay more than 2 midnights for the optimization of her OLIMPIA on CKD, heart failure with reduced ejection fraction and right knee effusion s/p arthrocentesis Time Spent in Patient Care: 16 - 35 minutes (>than 50% of time sp ent in counselling and/or direct pt care on unit) . Critical Care Time: The high probability of a clinically significant, sudden or life threatening deterioration, as referenced in this documentation, required my full and direct attention, intervention and personal management. The critical care time shown is in addition to time spent performing any reported separately billable procedures and includes the following: [x] Data and vital sign review and interpretation [x ] Patient assessment, examination and intervention [x] Medication orders and management [x] Patient/Family updates as able [x] Care Coordination and Documentation. Critical Care Time (min): 35 Other Attestations: Patient condition has been discussed at length with the patient/family, I have independently reviewed the chart labs imaging/diagnostics/EKG. the goals of care and code status with the patient/family/NOK/legal cash applications representative, and documented accordingly. The patient/family has been informed about the current condition and further plan of care. Agreed with the plan of care and understood without any language barrier. Every effort was made to ensure accuracy of syrup maker cook. Any obvious errors or omissions should be clarified with the author of the document. Coding Level of Care Code Critical Care >/= 30 minutes Diagnoses Acute hypoxemic respiratory failure J96.01 Acute congestive heart failure I50.9 Ischemic cardiomyopathy I25.5 Pneumonia involving right lung J18.9 Lung location: unspecified part of lung Pneumonia type: due to unspecified organism Swelling of toe of right foot M79.89 Acute kidney injury superimposed on CKD N17.9; N18.9 Hyperkalemia E87.5 Non-ST elevation DE (NSTEMI) I21.4 Primary hypertension I10 Hypertension type: primary hypertension Pyogenic arthritis of left knee joint, due to unspecified organism M00.9 Laterality: left Septic arthritis organism: due to unspecified organism Paroxysmal atrial fibrillation I48.0 Atrial fibrillation type: paroxysmal Type 2 diabetes mellitus without complication, with long-term current use of insulin E11.9; Z79.4 Diabetes mellitus complication status: without complication Diabetes mellitus mcc insulin use: with intermediate card tender use TIA (transient ischemic attack) G45.9 Mixed hyperlipidemia E78.2 Hyperlipidemia type: mixed hyperlipidemia Acquired hypothyroidism E03.9 Hypothyroidism type: acquired Chronic superficial gastritis without bleeding K29.30 Chronicity: chronic Gastritis bleeding: without bleeding Gastritis type: superficial Pituitary tumor D49.7
[2025-07-14] MEDS: FUROsemide 10 mg/mL SDV 2mL 20 MG IVP ×2 (12:32→15:45)
--- NOTE | 2025-07-14 13:04 | PC.OT ---
Pt. requested OT come at later time. Will attempt OT session at later time.
--- NOTE | 2025-07-14 16:13 | P.CONIM_ITS ---
Providers/Reason For Consult 2 Consulting Physician/Specialty*: Harsh Braswell D.P.M./podiatry. Reason for Consult*: Proximal phalanx fracture right second toe. Attending Physician: Izaiah Knutson MD Primary Care Provider: Marcia Flannery MD History of Present Illness History of Present Illness Podiatry consultation for evaluation of pleasant 70-year-old female Ms. Nichols who sustained a contusion to her right foot she reports 2 to 3 weeks ago. X-ray of the right foot significant for comminuted impaction fracture involving the head of the proximal phalanx of the right second toe. Patient states that she is been ambulatory on the fracture without weakness or instability denies any pain associated with the injury at this time. Denies any opening of the skin or sores associated with the injury of the right foot. Her is also bedside. Review of Systems 2 General: Reports: 10 or more systems reviewed and unremarkable except in HPI and below Const: Denies: fever(s) or chills Eyes: Denies: change in vision Card: Denies: chest pain or palpitations Resp: Denies: dyspnea or productive cough GI: Denies: abdominal pain, nausea or vomiting : Denies: flank pain Musc: Denies: extremity pain or extremity swelling Skin/Breast: Denies: rash Neuro: Denies: numbness in extremities, sensory changes or frequent falls Psych: Denies: suicidal ideation Jayjay/Lymph: Denies: easy bruising Medications/Allergies Home Medications ?Medication ?Instructions ?Recorded ?Confirmed ?Last Taken ?Type blood-glucose transmitter (Dexcom #1 ea 10/19/2407/07 Unknown Rx G6 Transmitter device) blood-glucose,personnel quality assurance auditor,cont #1 10/19/24 07/07/25 Un known Rx (Dexcom G6 Supervisor [employer]) blood sugar diagnostic (Blood #50 ea 12/09/24 07/07/25 Unknown Rx Glucose Test strips) blood-glucose meter #1 ea 12/09/24 07/07/25 Unkn own Rx lancets 32 gauge (E-Z Ject Lancets) #100 12/09/24 1 Unknown Rx magnesium glycinate 118 mg PO DAILY 02/16/2507/06/25 History empagliflozin 25 mg tablet 25 mg PO DAILY 90 days #90 tabs 02/23/25 07/07/2525 Rx (Jardiance) hydrochlorothiazide 12.5 mg tablet 12.5 mg PO QAM 90 d ays #90 tabs 02/23/25 07/07/25 06/02/25 Rx Held on 07/05/25. Instructions: Follow-up with your primary care doctor. Creatinine dual almost at baseline will hold hydrochlorothiazide for now until you follow-up with your PCP levothyroxine 88 mcg tablet 88 mcg PO DAILY 90 days #9 0 tabs 02/23/25 07/07/25 07/06/25 Rx lisinopril 40 mg tablet 40 mg PO DAILY 90 days #90 t abs 02/23/25 07/07/25 06/02/25 Rx Held on 07/05/25. Instructions: Creatinine is almost at baseline but still up we will hold till he follow-up with your PCP with subsequent chemistry metoprolol succinate 50 mg 50 mg PO DAILY 90 days #90 tabs 02/23/25 07/07/25 07/06/25 Rx tablet,extended release 24 hr rivaroxaban 20 mg tablet (Xarelto) 20 mg PO DAILY 90 d ays #90 tabs 02/23/25 07/07/25 05/31/25 Rx baclofen 5 mg tablet 5 mg PO BID PRN muscle spasm #60 03/16/25 07/07/25 06/02/25 Rx tabs amlodipine 10 mg tablet 10 mg PO DAILY PRN bp 90 day s #90 05/13/25 07/07/25 07/06/25 Rx tabs aspirin 81 mg tablet 81 mg PO DAILY 05/24/2506/1707/06/25 History enoxaparin 80 mg/0.8 mL 80 mg (0.8 mL) SUBCUT DIR ECTED 05/27/25 07/07/25 Unknown Rx subcutaneous syringe (Lovenox) #4.8 mL desvenlafaxine succinate 50 mg 50 mg PO DAILY 06/04/25 07/07/25 07/06/25 History tablet,extended release 24 hr ondansetron 4 mg disintegrating 4 mg PO Q6H PRN nausea and 06/04/25 07/07/25 Unknown Rx tablet vomiting #14 tabs blood-glucose sensor (Dexcom G7 #3 ea 06/28/25 5 Unknown Rx Sensor device) Allergies Allergy/AdvReac Type Severity Reaction Status Date / Time No Known Allergies Allergy Verified 05/26/25 10:15 Current Medications Generic Name Dose Route Start Last Admin Trade Name Myke PRN Reason Stop Dose Admin Acetaminophen 650 mg 07/07/25 08:43 07/14/25 12:36 Acetaminophen 325 Mg Tablet PO 650 mg Q6H PRN Administration Mild/Mod Pain Or Temp >/= 101 Aspirin 81 mg 07/08/25 05:00 07/14/25 04:42 Aspirin 81 Mg Ec Tablet PO 81 mg DAILY LIZETT Administration Atorvastatin Calcium 40 mg 07/09/25 21:00 07/13/25 20:34 Atorvastatin 40 Mg Tablet PO 40 mg BEDTIME LIZETT Administration Baclofen 5 mg 07/07/25 12:07 07/12/25 01:02 Baclofen 10 Mg Tablet PO 5 mg BID PRN Administration muscle spasm Ceftriaxone Sodium 1,000 mg 07/14/25 09:00 07/14/25 09:17 Ceftriaxone 1,000 Mg Sdv IVP 1,000 mg Q24H LIZETT Administration Desvenlafaxine 50 mg 07/08/25 05:00 07/14/25 04:42 Desvenlafaxine 50 Mg Tablet PO 50 mg DAILY LIZETT Administration Insulin Glargine 3 unit 07/13/25 05:00 07/14/25 09:16 Insulin Glargine 100 Units/1 Ml SUBCUT 3 unit BREAKFAST LIZETT Administration Insulin Human Lispro 0 unit 07/08/25 18:00 07/14/25 13:11 Insulin Lispro 100 Unit/1 Ml SUBCUT Not Given WM&BEDTIME [facility] Protocol Levothyroxine Sodium 88 mcg 07/08/25 05:00 07/14/25 04:42 Levothyroxine 88 Mcg Tablet PO 88 mcg DAILY LIZETT Administration Lidocaine HCl 1 applic 07/13/25 16:42 07/13/25 17:36 Lidocaine 2% Jelly 1 Applic/6 Ml Tube TOPICAL 1 applic PRN PRN Administration VAGINAL IRRITATION Metoprolol Succinate 50 mg 07/09/25 05:00 07/14/25 04:42 Metoprolol Succinate Er (24 Hr) 50 Mg Tablet PO 50 mg DAILY LIZETT Administration Nystatin 1 applic 07/12/25 17:00 07/14/25 05:15 Nystatin Powder 15 Gm Btl TOPICAL 1 applic BID LIZETT Administration Ondansetron HCl 4 mg 10/22/25 08:43 07/09/25 10:08 Ondansetron 2 Mg/Ml Sdv 2 Ml IVP 4 mg Q8H PRN Administration vomiting, or N/V if npo Pantoprazole Sodium 40 mg 07/09/25 05:00 07/14/25 04:42 Pantoprazole 40 Mg Sdv IVP 40 mg DAILY LIZETT Administration Rivaroxaban 20 mg 07/10/25 05:00 07/14/25 04:42 Rivaroxaban 10 Mg Tablet PO 20 mg DAILY LIZETT Administration Tramadol HCl 50 mg 07/12/25 21:27 07/14/25 15:16 Tramadol 50 Mg Tablet PO 50 mg BID PRN Administration MODERATE PAIN PFSH Acute 2 PFSH: Medical History (Updated 07/14/25 @ 16:49 by Harsh Braswell DPM) CKD (chronic kidney disease) Pancreatic mass A-fib Mixed hyperlipidemia Thrombocytopenia Hyperglycemia Vomiting Diabetic neuropathy Esophageal thickening Elevated troponin Anemia Acute kidney injury Menopausal symptoms Relates she takes antidepressant for this DJD (degenerative joint disease) Acquired hypothyroidism Pituitary tumor s/p post surgery at [facility] 2019? Hypertension Type 2 diabetes mellitus without complication, with long-term current use of insulin Surgical History History of hysterectomy History of H/O pituitary neoplasm Status post resection Family History Other CAD (coronary artery disease) Social History Smoking and tobacco/nicotine status: never used tobacco/nicotine Second hand smoke exposure: No Alcohol intake: never Substance/Drug Use: never Female Reproductive History: Spontaneous abortions: No Vitals/I&O/Wt Last Vital Signs Temp 98.0 F 07/14/25 07:59 Pulse 68 07/14/25 15:58 Resp 12 07/14/25 15:58 BP 132/69 07/14/25 15:58 Pulse Ox 98 07/14/25 15:58 O2 Del Method Room Air 07/14/25 03:29 O2 Flow Rate 2 07/11/25 10:00 07/14/25 07/14/25 07/14/25 06:59 14:59 22:59 Intake Total 895 / 2269.167 600 / 600 Output Total 650 / 1300 950 / 950 Balance 245 / 969.167 600 / 600 -950 / -350 Weight last 48 hrs Weight 208 lb 1.862 oz Weight 216 lb 0.848 oz Physical Exam 2 Narrative: GENERAL: Patient is alert and oriented ?3 and in no acute distress. The following is a focused bilateral lower extremity exam. VASCULAR: Dorsalis pedis palpable. Posterior tibial arteries palpable. Capillary refill time less than 3 seconds to the distal hallux bilaterally. Capillary refill is brisk less than 3 seconds at the distal tuft of the right second toe. Calf is supple and nontender proximally and distally. Edema to the right second toe. NEUROLOGICAL: Protective sensation intact 8/10 sites, tested with [employer] Kelsey monofilament to bilateral feet. DERMATOLOGICAL: Mild erythema of the right second toe without streaking, no break in the integument of the right foot. MUSCULOSKELETAL: Sagittal plane contracture of the right second toe that is fully reducible. Patient is able to dorsiflex and plantarflex with full strength at the right second toe. No acute dislocation of the right second toe. Minimal tenderness to palpation directly at the fracture site of the right second toe proximal phalanx head. Urinary Catheter Management: Bajwa: Cath Placed During This Visit: no Reason for Continuing Indwelling Catheter: Accurate Measurement of Urinary Output in Critically Ill Patients Data 07/14/25 03:25 07/14/25 03:25 Micro: Microbiology 07/11/25 13:00 Urine Culture - Final Urine,Clean Catch Nery albicans 07/08/25 23:06 Anaerobic Culture - Preliminary Knee - Synovial Fluid A&P Assessment and plan 1. Closed fracture of phalanx of right second toe, initial encounter: Plan: Pleasant 70-year-old female sustained a contusion to her right foot. X-ray AP oblique and lateral view taken 07/13/2025 of the right foot per my interpretation shows intra-articular impaction fracture of the right second toe proximal phalanx head with less than 2 mm of displacement, no significant step- off of the articular surface. No other acute osseous injury appreciated. Patient was examined and evaluated, findings and treatment options were discussed with patient and her at length. She reports no pain associated with the right second toe states that it happened a couple weeks ago. Has been able to ambulate without weakness or instability of the right foot. Patient would like to pursue conservative treatment of the fracture, I reinforced her decision that this is reasonable and can be monitored, advised for the next 2 weeks to be shashi splinted with silk tape to the great toe and may weight-bear as tolerated with supportive tennis shoe. Patient was provided our clinic information and advised to contact our podiatry clinic for follow-up should she have onset of pain or instability of the toe otherwise to follow-up on as-needed basis. PDMP PDMP Reviewed: Not Reviewed Consult Attestations 2 Medical Necessity Statement: Deferred to primary Coding Level of Care Code Acute Code for Chg Fwd Diagnoses Closed fracture of phalanx of right second toe, initial encounter S92.501A Encounter type: initial encounter
--- NOTE | 2025-07-14 16:33 | PC.SOCIAL ---
*IMM Updated* copy of IMM was gave to patient, dated and initialed in chart.
[2025-07-15 03:44] LABS: Hematocrit 27.9 % (36-47); Hemoglobin 8.20 g/dL (11.27-16.99); Mean Corpuscular HGB Conc 29.4 g/dL (30-55); Mean Corpuscular Hemoglobin 24.2 pg (27-33); Mean Corpuscular Volume 82.3 fl (85-98); Nucleated Red Blood Cells % 0 %; Platelet Count 201 10^3/cmm (157-399); Red Blood Count 3.39 10^6/uL (3.85-5.65); White Blood Count 5.62 10^3/uL (3.29-11.43)
[2025-07-15 04:00] VITALS: BP 118/64; PULSE 73; RESP 22; TEMP 36; O2SAT 95
[2025-07-15 04:07] LABS: Alanine Aminotransferase 7 U/L (0-33); Albumin Level 2.7 g/dL (3.5-5.2); Alkaline Phosphatase 90 U/L (35-105); Anion Gap 16.0 (5-19); Aspartate Amino Transferase 9 U/L (0-32); Blood Urea Nitrogen 42 mg/dL (8-23); Calcium 8.2 mg/dL (8.5-10.5); Carbon Dioxide 22 mmol/L (22-29); Chloride 100 mmol/L (98-107); Creatinine Clr Calc Pharmacy 37.4897; Globulin 3.2 g/dL (1.3-4.6); Glucose 226 mg/dL (65-115); Osmolality Calculated 296 mOsm/kg (285-295); Potassium 4.0 mmol/L (3.5-5.1); Sodium 134 mmol/L (136-145); Total Protein 5.9 g/dL (6.6-8.7)
[2025-07-15] MEDS: metoprolol succinate ER (24 HR) 50 mg Tablet PO (04:56)
[2025-07-15] MEDS: pantoprazole 40 mg SDV IVP (04:56)
[2025-07-15 05:29] VITALS: BMI 32.2
[2025-07-15 07:42] VITALS: BP 114/60; PULSE 74; RESP 31
[2025-07-15] MEDS: cefTRIAXone 1,000 mg SDV 1000 MG IVP (09:14)
[2025-07-15] MEDS: insulin glargine 100 units/1 mL 3 UNIT SUBCUT (09:14)
--- NOTE | 2025-07-15 09:25 | PC.NURSE ---
Patients dexcom at 0915 was 227. She refused her Humalog but agreed to take the long acting.
--- NOTE | 2025-07-15 11:14 | P.DS_ITS ---
Discharge Providers Date of Admission: 07/07/25 07:36 Date of Discharge: July 15, 2025 Attending Provider at Admission: Izaiah Knutson MD Attending Provider at Discharge: Izaiah Knutson MD Primary Care Provider: Marcia Flannery MD Diagnoses at Discharge Discharge Diagnosis 1. Acute systolic heart failure: 2. Elevated troponin: 3. Ischemic cardiomyopathy: 4. Type 2 diabetes mellitus without complication, with long-term current use of insulin: 5. Acquired hypothyroidism: 6. Mixed hyperlipidemia: 7. Pseudogout of left knee: 8. Closed fracture of phalanx of right second toe, initial encounter: 9. Acute kidney injury superimposed on CKD: 10. Dehydration: 11. A-fib: 12. Pituitary tumor: 13. GERD (gastroesophageal reflux disease): 14. Acute hypoxemic respiratory failure: Reason for Visit Reason for Visit: ams Brief History: As per the previous notes and the patient: Ambika Nichols is a 70 year old woman with chronic kidney disease (CKD) and recent hospitalization for acute kidney injury (OLIMPIA) and dehydration presents with elevated blood glucose, malaise, confusion, and hypoxemia noted by emergency medical services (oxygen saturations in the 70s). Initiated on 6 liters nasal cannula oxygen in the emergency department. Reports poor appetite over the last few days but denies vomiting or diarrhea. Denies chest pain or pressure and has not experienced increased shortness of breath when lying flat or need to sleep in a chair. Notes knee pain; has neuropathy in feet and legs, making it hard to assess swelling. Hospital Course Hospital Course Patient admitted in the hospital as a case of acute hypoxemic respiratory failure and later on found to have new heart failure with reduced ejection fraction. Nuclear scan showed fixed defects. GDMT was initiated however due to OLIMPIA on the top of CKD her GDMT was not carried in full doses and therefore was kept on beta-blockers. While Farxiga and Entresto were held. She also received Lasix IV doses for her shortness of breath and she improved but later on were held since she had OLIMPIA. She was also treated for possible pneumonia and improved. Further during her hospital stay it was found to have left knee swelling that underwent arthrocentesis per orthopedics. Knee fluid analysis showed positive crystals for pseudogout with high WBC count and no bacterial growth or Gram stain positive. Dr. Stinson from orthopedics further give her ap pointment to be followed as outpatient to do further analysis of the fluid for better management. The patient also had right toe swelling and x-ray showed mild fracture which was seen by the esthetician and to be followed as outpatient. The patient was managed by the police captain precinct as inpatient and her medications were adjusted accordingly. She was also found to have hyperkalemia and on and off received treatment with Kayexalate which resolved. She is planned to be discharged on Lasix as needed for features of fluid overload along with low-dose Entresto, aspirin and statin and beta-blockers and her medications were reconciled according to her comorbidity. Amlodipine and hydrochlorothiazide is held since her blood pressure runs soft and she is having heart failure with reduced ejection fraction. She was found to have HbA1c of 8.8% and started on metformin 500 mg daily and sitagliptin 25 mg daily with her home dose of empagliflozin 25 mg daily to continue. [facility] [facility] appointment provided for further management of her diabetes. Medication reconciled and appropriate referrals made. Patient condition has been discussed at length with the patient/family, I have independently reviewed the chart labs imaging/diagnostics/EKG. the goals of care and code status with the patient/family/NOK/legal appliance service representative, and documented accordingly. The management has been done according to the current clinical condition with respect to patient goals of care and based on recommendations/guidelines. The patient/family has been informed about the current condition and further plan of care. Agreed with the plan of care and understood without any language barrier. Every effort was made to ensure accuracy of acute specialist. Any obvious errors or omissions should be clarified with the author of the document. Physical Exam Narrative: General: Alert and oriented, sitting comfortably at the edge of the bed, without any oxygen supplementation and able to speak in full sentences without any distress HEENT: Normocephalic, atraumatic, grossly unremarkable exam Cardio: normal rate rhythm, normal S1-S2 without any murmurs, Respiratory: Equal air entry with mild inspiratory crepts at the bases and without any wheezing or stridor GI: Abdomen soft, nontender, nondistended, normoactive bowel sounds present all 4 quadrants, Neuro: intact cranial nerves motor and sensory and cerebellar/coordination function without any focal neurological deficit Behavior: Appropriate and cooperative Extremities/skin: Adequate palpable pulses, left knee swelling currently better, mild with improvement in her range of motion, mild trace pedal edema, having right second toe chronic swelling without any tenderness Urinary Catheter Management: Bajwa: Cath Placed During This Visit: no Reason for Continuing Indwelling Catheter: Accurate Measurement of Urinary Output in Critically Ill Patients Discharge Data Studies Completed and Pending Completed Studies During Hospitalization Category Date Time Status CT PE [CT angio chest PE protcl [id number]] Stat Cat Scan 07/07/25 04:[address] knee LT wo con* [id number] Urgent Cat Scan 07/08/25 08:30 Completed Cardiac Stress Test MIBI [Sestamibi Stress Test Request Exams 07/08/25 21:18 Completed ] Routine XR chest 1V portable [id number] Stat Exams 07/07/25 03:55 Completed XR foot RT 2V [id number] Stat Exams 07/13/25 10:39 Completed NM salomon perf SPECT r/s* [id number] Routine Nuc Med 07/09/25 21:18 Completed CV. echo limited [id number] Routine Ultrasound 07/07/25 09:09 Completed US renal BI* [id number] Routine Ultrasound 07/11/25 15:16 Completed Pending at discharge Category Date Time Status Anaerobic Culture Routine Lab 07/08/25 23:06 Results Sputum Culture and Gram Stain Routine Lab 07/07/25 08:43 Uncollected Radiology Impressions Chest X-Ray 07/07/25 03:55 IMPRESSION: 1. Airspace disease involving the right lower lung. Findings could represent atelectasis, pneumonia or a combination. Chest CTA 07/07/25 04:07 IMPRESSION: 1. Cardiomegaly. 2. Moderate-sized pleural effusions with compressive atelectasis worse on the right than on the left. 3. Findings most compatible with interstitial edema. 4. Mild aneurysmal dilatation involving the ascending aorta which measures 4 cm in size. Knee CT 07/08/25 08:30 IMPRESSION: 1. Moderate to large suprapatellar effusion. 2. No evidence of osteomyelitis Renal Ultrasound 07/11/25 15:16 IMPRESSION: 1. Limited exam due to body habitus. 2. Large simple appearing cyst measuring up to 7.1 cm in the inferior pole of the left kidney. 3. Kidneys otherwise appear grossly unremarkable with no hydronephrosis. 4. Bladder is decompressed with a Bajwa catheter. Laboratory Results WBC 5.62 10^3/uL (3.29-11.43) 07/15/25 03:02 RBC 3.39 10^6/uL (3.85-5.65) L 07/15/25 03:02 Hgb 8.20 g/dL (11.27-16.99) L 07/15/25 03:02 Hct 27.9 % (36-47) L 07/15/25 03:02 MCV 82.3 fl (85-98) L 07/15/25 03:02 MCH 24.2 pg (27-33) L 07/15/25 03:02 MCHC 29.4 g/dL (30-55) L 07/15/25 03:02 RDW 15.6 % (12.1-15.1) H 07/15/25 03:02 Plt Count 201 10^3/cmm (157-399) 07/15/25 03:02 MPV 9.3 fL (7.4-10.4) 07/15/25 03:02 Neut % (Auto) 53.2 % 07/15/25 03:02 Lymph % (Auto) 24.2 % 07/15/25 03:02 Thurston % (Auto) 14.6 % 07/15/25 03:02 Eos % (Auto) 6.8 % 07/15/25 03:02 Baso % (Auto) 0.5 % 07/15/25 03:02 Neut # (Auto) 2.99 10^3/uL (1.8-7.7) 07/15/25 03:02 Lymph # (Auto) 1.4 10^3/uL (0.8-4.8) 07/15/25 03:02 Thurston # (Auto) 0.8 10^3/uL (0.2-0.9) 07/15/25 03:02 Eos # (Auto) 0.4 10^3/uL (0.0-0.8) 07/15/25 03:02 Baso # (Auto) 0.0 10^3/uL (0.0-0.1) 07/15/25 03:02 Nucleated RBC % (auto) 0 % 07/15/25 03:02 Nucleated RBCs # 0.0 /100WBC 07/15/25 03:02 Differential Comment Cancelled 07/08/25 23:06 APTT 50.3 SECONDS (23.9-36.7) H 07/09/25 09:23 Sodium 134 mmol/L (136-145) L 07/15/25 03:02 Potassium 4.0 mmol/L (3.5-5.1) 07/15/25 03:02 Chloride 100 mmol/L (98-107) 07/15/25 03:02 Carbon Dioxide 22 mmol/L (22-29) 07/15/25 03:02 Anion Gap 16.0 (5-19) 07/15/25 03:02 BUN 42 mg/dL (8-23) H 07/15/25 03:02 Creatinine 1.6 mg/dL (0.5-0.9) H 07/15/25 03:02 GFR Calculation Not Reportable 07/15/25 03:02 Glucose 226 mg/dL (65-115) H 07/15/25 03:02 POC Glucose 233 mg/dL (70-110) H 07/14/25 16:47 Calculated Osmolality 296 mOsm/kg (285-295) H 07/15/25 03:02 Lactic Acid 1.8 mmol/L (0.5-2.2) 07/07/25 03:30 Calcium 8.2 mg/dL (8.5-10.5) L 07/15/25 03:02 Phosphorus 4.8 mg/dL (2.5-4.5) H 07/15/25 03:02 Magnesium 2.4 mg/dL (1.7-2.3) H 07/09/25 09:23 Iron 23 ug/dL (37-145) L 07/12/25 12:26 TIBC 248 mcg/dl 07/12/25 12:26 % Saturation 9.2 % (20-50) L 07/12/25 12:26 Unsat Iron Binding 225 ug/dL (112-347) 07/12/25 12:26 Ferritin 79 ng/mL (15-150) 07/12/25 12:26 Total Bilirubin 0.2 mg/dL (0.15-1.2) 07/15/25 03:02 AST 9 U/L (0-32) 07/15/25 03:02 ALT 7 U/L (0-33) 07/15/25 03:02 Alkaline Phosphatase 90 U/L (35-105) 07/15/25 03:02 Troponin T Baseline 395 ng/L (0-10) H* 07/07/25 03:30 Troponin T 120 Minute 370.6 ng/L (0-10) H 07/07/25 05:20 Delta Troponin T -24.4 ABS# (0-10) L 07/07/25 05:20 Troponin T Hi Sens 6Hr 352.0 ng/L (0-10) H 07/07/25 09:47 Troponin T Hi Sens 6Hr Delta -43.0 ng/L (0-12) L 07/07/25 09:47 NT-Pro-B Natriuret Pep 54629 pg/mL (0-125) H 07/07/25 03:30 Total Protein 5.9 g/dL (6.6-8.7) L 07/15/25 03:02 Albumin 2.7 g/dL (3.5-5.2) L 07/15/25 03:02 Globulin 3.2 g/dL (1.3-4.6) 07/15/25 03:02 Triglycerides 107 mg/dL (0-150) 07/09/25 09:23 Cholesterol 86 mg/dL (0-200) 07/09/25 09:23 LDL Cholesterol, Calc 32 mg/dL (50-129) L 07/09/25 09:23 HDL Cholesterol 33 mg/dL (60-100) L 07/09/25 09:23 LDL/HDL Ratio 0.97 RATIO (0.00-3.22) 07/09/25 09:23 Cholesterol/HDL Ratio 2.61 mg/dL (0.0-4.40) 07/09/25 09:23 Vitamin B12 > 2000 pg/mL (232-1245) H 07/12/25 12:26 Folate 15.8 ng/mL (4.8-37.3) 07/12/25 12:26 Procalcitonin 0.94 ng/mL (0-0.5) H 07/07/25 03:30 Urine Color Yellow (Yellow) 07/11/25 18:56 Urine Appearance Turbid (CLEAR) A 07/11/25 18:56 Urine pH 5.0 (5-7) 07/11/25 18:56 Ur Specific [place] 1.022 (1.005-1.030) 07/11/25 18:56 Urine Protein 3+ (Negative) A 07/11/25 18:56 Urine Glucose (UA) 1+ (Normal) H 07/11/25 18:56 Urine Ketones Negative (Negative) 07/11/25 18:56 Urine Blood 3+ (Negative) A 07/11/25 18:56 Urine Nitrate Negative (Negative) 07/11/25 18:56 Urine Bilirubin Negative (Negative) 07/11/25 18:56 Urine Urobilinogen 0.2 mg/dL (Negative) 07/11/25 18:56 Ur Leukocyte Esterase 2+ (Negative) A 07/11/25 18:56 Urine RBC >100 /hpf (0-2) H 07/11/25 18:56 Urine WBC >100 /hpf (0-5) H 07/11/25 18:56 Ur Squamous Epith Cells 6-10 /hpf (0-5) 07/11/25 18:56 Amorphous Sediment Not Reportable 07/11/25 18:56 Urine Bacteria None seen /hpf (NONE) 07/11/25 18:56 Hyaline Casts 43.00 /lpf 07/11/25 18:56 Urine Yeast 4+ /hpf H 07/11/25 18:56 Urine Osmolality 356 mOsm/kg (50-1200) 07/11/25 18:56 Ur Random Microalbumin 76 ug/dL (0-20) H 07/11/25 18:56 U Random Total Protein 166 mg/dL 07/11/25 18:56 Ur Random Sodium 15 mmol/L 07/11/25 18:56 Ur Random Potassium 46 mmol/L 07/11/25 18:56 Ur Random Chloride 13 mmol/L 07/11/25 18:56 Urine Creatinine 124 mg/dL (28-217) 07/11/25 18:56 Urine Creatinine 125 mg/dL (28-217) 07/11/25 18:56 Microalb/Creat Ratio 613 mg/dL (0-20) H 07/11/25 18:56 Fluid Color Cancelled 07/08/25 23:06 Fluid Appearance Cancelled 07/08/25 23:06 Fluid WBC Cancelled 07/08/25 23:06 Fluid RBC Cancelled 07/08/25 23:06 Fluid Tot Cell Count Cancelled 07/08/25 23:06 Fld Polynuclear WBCs # Cancelled 07/08/25 23:06 Fld Polynuclear WBCs % Cancelled 07/08/25 23:06 Fl Mononucl WBCs #(Auto) Cancelled 07/08/25 23:06 Fl Mononuclear % Auto Cancelled 07/08/25 23:06 Fluid Crystals Sent 07/08/25 23:06 Fld Crystal Laterality Cancelled 07/08/25 23:06 Synovial Color Cancelled 07/08/25 23:06 Synovial Color Pale yellow (PALE YELLOW) 07/08/25 23:06 Synovial Appearance Cancelled 07/08/25 23:06 Synovial Appearance Cloudy (CLEAR) 07/08/25 23:06 Synovial WBC 36503 /uL (0-150) H 07/08/25 23:06 Synovial WBC Cancelled 07/08/25 23:06 Synovial RBC 17 10^3/uL (0-0) H 07/08/25 23:06 Synovial RBC Cancelled 07/08/25 23:[address] Cancelled 07/08/25 23:06 Synovial Mononuclear 3.500 10^3/uL 07/08/25 23:06 Synovial Mononuclear Cancelled 07/08/25 23:06 Synov Polynuclear WBCs 60.281 10^3/uL 07/08/25 23:06 Synov Polynuclear WBCs Cancelled 07/08/25 23:06 Synovial Other Cells Cancelled 07/08/25 23:06 Synovial Other Cells Not Reportable 07/08/25 23:06 Synovial Polynuclear % 94.500 % 07/08/25 23:06 Synovial Polynuclear % Cancelled 07/08/25 23:06 Synovial Mononuclear % 5.500 % 07/08/25 23:06 Synovial Mononuclear % Cancelled 07/08/25 23:06 Nasal MRSA (PCR) Not detected (Not Detecte) 07/09/25 17:04 Vancomycin Trough 24.0 ug/mL (10-15) H 07/10/25 09:22 Random Vancomycin 20.9 ug/mL (20.0-40.0) 07/11/25 02:30 Influenza A (PCR) Negative (Negative) 07/07/25 18:13 Influenza Type B (PCR) Negative (Negative) 07/07/25 18:13 RSV (PCR) Negative (Negative) 07/07/25 18:13 SARS-CoV-2 (PCR) Negative (Negative) 07/07/25 18:13 Path Cons w/Slide Cancelled 07/08/25 23:06 Path Cons w/Slide Yes 07/08/25 23:06 Vitals Last Vital Signs Temp 96.8 F L 07/15/25 04:00 Pulse 74 07/15/25 07:42 Resp 31 H 07/15/25 07:42 BP 114/60 07/15/25 07:42 Pulse Ox 95 07/15/25 04:00 O2 Del Method Room Air 07/15/25 07:42 O2 Flow Rate 2 07/11/25 10:00 Discharge Plan Discharge Patient Disposition: Home Health Service Condition: Stable Prescriptions: New furosemide [Lasix] 20 mg tablet 20 mg PO PRN 60 Days Qty: 90 0RF Rx Instructions: for weight gain greater than 3# in 24 hours or 5# in a week as per cardiology recommendations metformin 500 mg tablet 500 mg PO DAILY Qty: 60 0RF atorvastatin 40 mg Tablet 40 mg PO BEDTIME 90 Days Qty: 90 0RF sacubitril-valsartan [Entresto] 24-26 mg tablet 1 tab PO BID Qty: 60 0RF sitagliptin 25 mg tablet 25 mg PO DAILY Qty: 60 0RF Continued baclofen 5 mg tablet 5 mg PO BID PRN (Reason: muscle spasm) Qty: 60 3RF Xarelto 20 mg tablet 20 mg PO DAILY 90 Days Qty: 90 2RF Rx Instructions: must administer with evening meal 340B metoprolol succinate 50 mg tablet extended release 24 hr 50 mg PO DAILY 90 Days Qty: 90 2RF Jardiance 25 mg tablet 25 mg PO DAILY 90 Days Qty: 90 2RF Rx Instructions: 340B levothyroxine 88 mcg tablet 88 mcg PO DAILY 90 Days Qty: 90 2RF aspirin 81 mg tablet 81 mg PO DAILY enoxaparin [Lovenox] 80 mg/0.8 mL syringe 80 mg SUBCUT DIRECTED Qty: 4.8 0RF Rx Instructions: 06/01- last dose of Xarelto and Aspirin 06/02, 06/03, & 06/04 take one injection of Lovenox in the AM & PM Nothing on 06/05 & 06/06 magnesium glycinate 118 mg magnesium Capsule 118 mg PO DAILY desvenlafaxine succinate 50 mg tablet extended release 24 hr 50 mg PO DAILY ondansetron 4 mg tablet,disintegrating 4 mg PO Q6H PRN (Reason: nausea and vomiting) Qty: 14 0RF Discontinued lisinopril 40 mg tablet 40 mg PO DAILY 90 Days Qty: 90 2RF Rx Instructions: 340B hydrochlorothiazide 12.5 mg tablet 12.5 mg PO QAM 90 Days Qty: 90 2RF amlodipine 10 mg tablet 10 mg PO DAILY PRN (Reason: bp) 90 Days Qty: 90 0RF Rx Instructions: Hold for low bp No Action (DME) Dexcom G6 Sql Ssis Developer Misc See Rx Instructions .ROUTE .MEDSUPPLY Qty: 1 0RF Rx Instructions: As directed (DME) Dexcom G6 Transmitter Device See Rx Instructions .ROUTE .MEDSUPPLY Qty: 1 0RF Rx Instructions: As directed (DME) Blood Glucose Test Strip See Rx Instructions .Route Qty: 50 0RF Rx Instructions: As directed (DME) blood-glucose meter Kit See Rx Instructions .Route Qty: 1 0RF Rx Instructions: As directed (DME) E-Z Ject Lancets 32 gauge misc See Rx Instructions .Route Qty: 100 0RF Rx Instructions: As directed (DME) Dexcom G7 Sensor Device See Rx Instructions .ROUTE .COMPLEX Qty: 3 3RF Dose Instruction: USE DIRECTED Rx Instructions: USE DIRECTED Digital Strategy Manager OK for DC: Cardiology and Orthopedics Other Ambulatory Orders: Comprehensive Metabolic Panel (Routine) Timeframe: 2 Weeks Facility: [facility] - Location: Lab - Main Lab Ordered By: Izaiah Knutson Referrals: Harsh Braswell DPM [Physician, Podiatry] - 08/04/25 10:45 am Referral Note: Rt foot 2nd toe fracture for follow up on conservative management Marietta Stinson MD [Physician, Orthopedics] - 08/04/25 9:30 am Cori Sloan MD [Physician, Cardiology] - 07/28/25 3:45 pm Referral Note: fu in 2 weeks for heart failure GDMT and cont of care Peng Delgado MD [Physician, Cardiology] - 08/02/25 2:00 pm Marcia Flannery MD [Primary Care Provider, Family Practice] - 07/19/25 11:00 am Socorro Thompson MD [Physician, Endocrinology] - 7-10 days Referral Note: HbA1c 8.8% CKD Started on metformin 500 mg daily and sitagliptin 25 mg daily based on creatinine clearance. Later to tailor her diabetic medications as outpatient Discharge Diet: Cardiac, Low Salt and Low Cholesterol Discharge Activity: Increase activity as tolerated and Use walker/crutches as instructed Patient Instructions: Furosemide (By mouth), Metformin (By mouth), Atorvastatin (By mouth), Sitagliptin (By mouth), Sacubitril/Valsartan (By mouth), Altered Mental Status (ED), Opioid Safety, Patient Portal & Tobias Instructions Activity Restrictions/Additional Instructions: Elevate left knee. May ambulate weightbearing as tolerated. Follow-up in my office and we will further assess findings. Discharge Attestations Time Spent in Discharge Care*: critical care time Critical Care Time (min): 40 Specific Discharge Activities: educating patient, educating and/or supporting family/caregiver, discussing with pcp/other providers, discussing with shelter case manager/social workers/dc planners, documenting/other paperwork and evaluating patient/reviewing data Status at Discharge: Cognitive status at discharge: cognitively intact , Behavioral status at discharge: cooperative , Functional status at discharge: other assisted ambulation , Overall status at discharge: patient is back to baseline Quality Metrics Clinical Quality Measures [ No reported AMI, CVA or VTE this stay] Coding Level of Care Code Critical Care >/= 30 minutes Diagnoses Acute systolic heart failure I50.21 Elevated troponin R79.89 Ischemic cardiomyopathy I25.5 Type 2 diabetes mellitus without complication, with long-term current use of insulin E11.9; Z79.4 Diabetes mellitus snf insulin use: with superintendent container terminal use Diabetes mellitus complication status: without complication Acquired hypothyroidism E03.9 Hypothyroidism type: acquired Mixed hyperlipidemia E78.2 Hyperlipidemia type: mixed hyperlipidemia Pseudogout of left knee M11.262 Closed fracture of phalanx of right second toe, initial encounter S92.501A Encounter type: initial encounter Acute kidney injury superimposed on CKD N17.9; N18.9 Dehydration E86.0 A-fib I48.91 Pituitary tumor D49.7 GERD (gastroesophageal reflux disease) K21.9 Acute hypoxemic respiratory failure J96.01
[2025-07-15] MEDS: FUROsemide 10 mg/mL SDV 2mL 20 MG IVP (11:16)
--- NOTE | 2025-07-15 11:20 | P.PN_ITS ---
<Statement entered by Cori Sloan MD - 07/19/25 19:40> Patient was evaluated and cared for in conjunction with an advanced practice practitioner. I personally examined the patient and reviewed the chart and all pertinent data including imaging, telemetry, and laboratory results. I discussed the patient in detail with the advanced practice practitioner. Please see their note for complete H&P testing result and agreed upon plan of care for the patient Subjective 2 Subjective: She has done well overnight, appears euvolemic today, no orthopnea. Creatinine 1.6 today. Will start Entresto 24/26 mg BID, reduce metoprolol succinate to 25mg daily, use Lasix 20mg PRN for weight gain over 3# in 24hrs or 5# in a week. Check labs in 4 days. Vitals/I&O/Wt Last Vital Signs Temp 96.8 F L 07/15/25 04:00 Pulse 74 07/15/25 07:42 Resp 31 H 07/15/25 07:42 BP 114/60 07/15/25 07:42 Pulse Ox 95 07/15/25 04:00 O2 Del Method Room Air 07/15/25 07:42 O2 Flow Rate 2 07/11/25 10:00 07/14/25 07/15/25 07/15/25 22:59 06:59 14:59 Intake Total 1360 / 1960 Output Total 2400 / 3150 750 / 3150 Balance -1040 / -1190 -750 / -1190 Weight last 48 hrs Weight 205 lb 11.06 oz Weight 208 lb 1.862 oz Physical Exam 2 Const: COMMON NORMALS: no acute distress and patient oriented x3 GENERAL APPEARANCE: cooperative and comfortable ORIENTATION/CONSCIOUSNESS: Yes awake, Yes oriented to person, Yes oriented to place and Yes oriented to time Chest: COMMONS NORMALS: normal inspection of the chest and normal palpation of entire chest wall CHEST: Yes Symmetrical chest wall rise Resp: COMMON NORMALS: normal respiratory effort, No retractions, No use of accessory muscles and clear to auscultation bilaterally EFFORT & INSPECTION: Yes symmetric chest movement AUSCULTATION: clear to auscultation bilaterally Cardio: COMMON NORMALS: regular rate, regular rhythm, S1 normal heart sound present, S2 normal heart sound present, No gallops present (Cardio), No clicks present (Cardio), No murmurs present (Cardio) and No rub (Cardio) RATE: r egular rate RHYTHM: regular rhythm HEART SOUNDS: S1 normal heart sound present and S2 normal heart sound present PERIPHERAL PULSES: radial pulses present Extremity: COMMON NORMALS: no pedal edema Neuro: COMMON NORMALS: patient oriented x3 and moves all extremities S ENSORIUM/ORIENTATION: Yes oriented to person, Yes oriented to place and Yes oriented to time Urinary Catheter Management: Bajwa: Cath Placed During This Visit: no Reason for Continuing Indwelling Catheter: Accurate Measurement of Urinary Output in Critically Ill Patients Data 07/15/25 03:02 07/15/25 03:02 Micro: Microbiology 07/11/25 13:00 Urine Culture - Final Urine,Clean Catch Nery albicans 07/08/25 23:06 Anaerobic Culture - Preliminary Knee - Synovial Fluid A&P Assessment and plan 1. Acute systolic heart failure: 2. Elevated troponin: 3. Ischemic cardiomyopathy: 4. Acute kidney injury superimposed on CKD: 5. Acquired hypothyroidism: 6. Mixed hyperlipidemia: 7. Pituitary tumor: 8. Anemia: Plan: Plan for discharge today, will follow up with her in the clinic for adjustment of GDMT. She does not know when she will see her surgeon at [facility]. Will check labs in 4 days to watch renal function and potassium level. Requested she maintain blood pressure and weight log for titration of medications on follow up. PDMP PDMP Reviewed: Not Reviewed Attestations 2 Medical Necessity Statement*: dc today Coding Level of Care Code Acute Code for Chg Fwd Diagnoses Acute systolic heart failure I50.21 Elevated troponin R79.89 Ischemic cardiomyopathy I25.5 Acute kidney injury superimposed on CKD N17.9; N18.9 Acquired hypothyroidism E03.9 Hypothyroidism type: acquired Mixed hyperlipidemia E78.2 Hyperlipidemia type: mixed hyperlipidemia Pituitary tumor D49.7 Anemia D64.9
[2025-07-15 13:24] VITALS: BP 117/66; PULSE 76; O2SAT 99
== END 2025-07-15 14:00 | disposition home health service (06) | DRG 280 ==
LOC: ER 06:06 → ICU 07:37 → CSU 07-08 17:19
PROVIDERS: Internal Medicine; Internal Medicine Cardiovascular Disease; Specialist; Admitting Provider Student in an Organized Health Care Education/Training Program; Emergency Provider Emergency Medicine; PCP Family Medicine; Visit Provider Student in an Organized Health Care Education/Training Program
DX: I13.0 Hypertensive heart and chronic kidney disease with heart failure and stage 1 through stage 4 chronic kidney disease, or unspecified chronic kidney disease (principal); I50.21 Acute systolic (congestive) heart failure; I21.A1 Myocardial infarction type 2; J18.9 Pneumonia, unspecified organism; N17.9 Acute kidney failure, unspecified; N39.0 Urinary tract infection, site not specified; J91.8 Pleural effusion in other conditions classified elsewhere; G45.9 Transient cerebral ischemic attack, unspecified; M79.89 Other specified soft tissue disorders; E23.6 Other disorders of pituitary gland; E78.2 Mixed hyperlipidemia; N18.9 Chronic kidney disease, unspecified; K29.30 Chronic superficial gastritis without bleeding; I48.0 Paroxysmal atrial fibrillation; M17.12 Unilateral primary osteoarthritis, left knee; M11.262 Other chondrocalcinosis, left knee; E11.65 Type 2 diabetes mellitus with hyperglycemia; I25.5 Ischemic cardiomyopathy; E11.22 Type 2 diabetes mellitus with diabetic chronic kidney disease; E87.5 Hyperkalemia; D63.1 Anemia in chronic kidney disease; E03.9 Hypothyroidism, unspecified; Z79.890 Hormone replacement therapy; Z79.899 Other long term (current) drug therapy; Z79.01 Long term (current) use of anticoagulants; Z79.82 Long term (current) use of aspirin; Z90.710 Acquired absence of both cervix and uterus; Z82.49 Family history of ischemic heart disease and other diseases of the circulatory system; Z79.4 Long term (current) use of insulin; Z11.52 Encounter for screening for COVID-19
CPT/HCPCS: 36415; 36416; 51702; 71045; 71275; 73620; 73700; 76770; 78452; 80048; 80053; 80061; 80202; 80503; 81001; 82044; 82436; 82550; 82570; 82607; 82728; 82746; 82962; 83036; 83540; 83550; 83605; 83735; 83880; 83935; 84100; 84133; 84145; 84156; 84300; 84484; 85025; 85049; 85730; 87040; 87070; 87075; 87077; 87086; 87205; 87637; 89050; 92523; 92610; 93005; 93017; 93308; 94664; 96361; 96372; 96374; 96375; 97110; 97116; 97162; 97167; 97530; 99285; A9500; G0378; J0456; J0612; J0696; J1644; J1815; J1938; J2405; J2470; J2785; J3372; J3490; J7030; J7050; J7060; J7120; J9999